=== PATIENT | female | born 1960 | race Caucasian/White ===

== ENCOUNTER 2023-08-01 09:21 | Outpatient (AMB) | payer MEDICARE, MEDICAID, SELFPAY ==
--- NOTE | 2023-08-01 09:48 | MHC.OFFVIS ---
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 The patient describes her pain as sharp and severe in nature, 10/10. Her pain has gotten worse over the last 3 years in spite of continued non operative treatments. She has done physical therapy which aggravated her pain. She has also had cortisone injections as well as viscosupplementation injections which gave her minimal relief. She has tried Tylenol which gives only mild relief. The patient has difficulty walking even short distances because of her pain. At this point her right knee pain is interfering with her activities of daily living and her ability to sleep well through the night. Allergies No Known Allergies Allergy (Verified 08/01/23 09:52) Medication List - Last Reconciled 08/01/23 by Anup Jordan MD albuterol sulfate 90 mcg/actuation (Ventolin HFA) inhalation apixaban (Eliquis) 5 mg PO BID atorvastatin 80 mg PO DAILY buspirone 15 mg PO BID carvedilol 3.125 mg PO BID clonazepam mg PO enoxaparin mg subcut escitalopram oxalate 20 mg PO DAILY famotidine 20 mg PO BID fluticasone propion-salmeterol 250-50 mcg/dose (Wixela Inhub) 1 ea inhalation BID hydroxyzine pamoate 25 mg PO TID linaclotide (Linzess) 145 mcg PO DAILY mirabegron ER (Myrbetriq) 50 mg PO DAILY omeprazole 20 mg PO DAILY oxcarbazepine 600 mg PO BID tirzepatide (Mounjaro) mg subcut [facility] Surgical History History of bladder suspension procedure Hx of tonsillectomy H/O: hysterectomy History of ankle surgery Physical Exam Vital Signs: BMI result Body Mass Index 43.8 Const Other: Well-nourished well-developed very friendly female awake alert and oriented x3 in no acute distress Extrem Other: Bilateral lower extremity examination shows good capillary refill, no skin lesions noted, normal sensation light touch Right knee examination shows a minimal effusion, palpable crepitus with range of motion, pain with range of motion, range of motion from -3 degrees to 115 degrees, no instability Results Reviewed Results Reviewed: X-rays of the patient's right knee show end-stage degenerative joint disease with grade 4 [id number] arthritis in the medial compartment, subchondral sclerosis, osteophyte formation, no acute bony abnormalities Assessment & Plan Assessment & Plan (1) Arthritis of right knee: Code(s): M17.11 - Unilateral primary osteoarthritis, right knee Category: Medical Plan Ms. Dean presents with progressively worsening right knee pain due to end-stage degenerative joint disease. I had a lengthy discussion with the patient regarding the treatment options. At this point she has failed continued non operative treatments. The risks and benefits of right total knee replacement surgery were discussed at length with the patient. The patient is interested in proceeding with surgery later this year. She will contact my office to pick a surgery date. I will see her back prior to the surgery to answer any final questions that she might have. Feel free to call me at any time should questions regarding her orthopedic management arise. I spent 21 minutes in reviewing the patient's records and imaging studies, seeing the patient and documenting in the medical record. Orders: Orders XR knee RT 3V Today M25.561 - Pain in right knee Coding Level of Care Code Est Pt Level 3 (40093) Diagnoses Arthritis of right knee M17.11
[2023-08-01 09:49] VITALS: BMI 43.8
== END 2023-08-01 10:12 | disposition home or self-care (01) ==
PROVIDERS: PCP Internal Medicine; Visit Provider Orthopaedic Surgery
DX: M17.11 Unilateral primary osteoarthritis, right knee (principal)
CPT/HCPCS: 99213

== ENCOUNTER 2023-08-01 10:30 | Outpatient (REF) | payer MEDICARE, MEDICAID, SELFPAY ==
--- NOTE | ~2023-08-01 | XR_ITS ---
EXAMINATION: XR KNEE, RIGHT CLINICAL INFORMATION: Pain in right knee. COMPARISON: MRI of left knee of July 23, 2020. TECHNIQUE: Three views of the right knee. FINDINGS: Marked narrowing of the medial compartment with subchondral sclerosis. Small medial marginal posterior patellar osteophytes. Trace joint effusion. XR/XR knee RT 3V IMPRESSION: Marked degenerative changes medial compartment.
== END 2023-08-01 10:31 | disposition home or self-care (01) ==
LOC: HO.HOSX 10:30
PROVIDERS: Visit Provider Orthopaedic Surgery
DX: M17.11 Unilateral primary osteoarthritis, right knee (principal)
CPT/HCPCS: 73562; 99212

== ENCOUNTER → 2023-09-28 09:10 | Outpatient (BNVA) | payer MEDICARE, MEDICAID, SELFPAY | PROVIDERS: PCP Internal Medicine | DX: Z01.818 Encounter for other preprocedural examination (principal) ==

== ENCOUNTER 2023-10-26 09:53 | Outpatient (AMB) | payer MEDICARE, MEDICAID, SELFPAY ==
--- NOTE | 2023-10-26 09:59 | MHC.OFFVIS ---
Intake Visit Reasons: Pre-Op: R TKA tamia/ 10/30/23 Intake Note: Esperanza is a 62 year old female who presents with complaints of progressively worsening right knee pain. The patient describes her pain as sharp and severe in nature, 11/22. Her pain has gotten worse over the last 3 years in spite of continued non operative treatments. She has done physical therapy which aggravated her pain. She has also had cortisone injections as well as viscosupplementation injections which gave her minimal relief. She has tried Tylenol which gives only mild relief. The patient has difficulty walking even short distances because of her pain. At this point her right knee pain is interfering with her activities of daily living and her ability to sleep well through the night. Allergies No Known Allergies Allergy (Verified 10/26/23 10:00) Medication List - Last Reconciled 10/26/23 by Anup Jordan MD albuterol sulfate 90 mcg/actuation (Ventolin HFA) 1 inh inhalation Q4H PRN apixaban (Eliquis) 5 mg PO BID atorvastatin 80 mg PO BEDTIME buspirone 15 mg PO BID carvedilol 6.25 mg PO BID carvedilol 3.125 mg PO BID clonazepam 1 mg PO BID escitalopram oxalate 20 mg PO QAM famotidine 20 mg PO BEDTIME fluticasone propion-salmeterol 250-50 mcg/dose (Wixela Inhub) 1 ea inhalation BID hydroxyzine pamoate 25 mg PO TID PRN levothyroxine 25 mcg PO QAM linaclotide (Linzess) 145 mcg PO QAM mirabegron ER (Myrbetriq) 50 mg PO QAM omeprazole 20 mg PO QAM oxcarbazepine 600 mg PO BID tirzepatide (Mounjaro) 10 mg subcut QWEEK walker Folding front wheeled walker [facility] Medical History Fatty liver Asthma Hypothyroid DVT (deep venous thrombosis) Fibromyalgia HTN (hypertension) Chronic renal insufficiency Type 2 diabetes mellitus Bipolar disorder Depression Morbid obesity Chronic pulmonary embolism Sleep apnea GERD (gastroesophageal reflux disease) Elevated cholesterol Surgical History History of esophagogastroduodenoscopy (EGD) H/O colonoscopy Hx of inguinal hernia repair Hx of sinus surgery Hx of shoulder surgery Hx of umbilical hernia repair Hx of arthroscopy of right knee History of bladder suspension procedure Hx of tonsillectomy H/O: hysterectomy History of ankle surgery Social History Household Members Other:: takes care of parents Are you a primary dog daycare provider to a significant other at home: No Do you presently have visiting nurse or other home services: No Patient Tobacco Use Status: Former Tobacco user Tobacco use type: Cigarette Years Smoked: 30 Physical Exam Const Other: Well-nourished well-developed very friendly female awake alert and oriented x3 in no acute distress Extrem Other: Bilateral lower extremity examination shows good capillary refill, no skin lesions noted, normal sensation light touch Right knee examination shows a minimal effusion, palpable crepitus with range of motion, pain with range of motion, range of motion from -3 degrees to 115 degrees, no instability Results Reviewed Results Reviewed: X-rays of the patient's right knee show end-stage degenerative joint disease with grade 4 [id number] arthritis, subchondral sclerosis, no acute bony abnormalities Assessment & Plan Assessment & Plan (1) Arthritis of right knee: Code(s): M17.11 - Unilateral primary osteoarthritis, right knee Category: Medical Plan Ms. Dean presents with right knee pain due to end-stage degenerative joint disease. I had a lengthy discussion with the patient regarding the treatment options. At this point she has failed continued non operative treatments. The risks and benefits of right total knee replacement surgery were discussed at length with the patient. The patient wishes to proceed with surgery. patient services manager will be consulted following her surgery for home physical therapy and nursing. The patient will follow-up as instructed. Feel free to call me at any time should questions regarding her orthopedic management arise. I spent 22 minutes in reviewing the patient's records and imaging studies, seeing the patient and documenting in the medical record. Coding Level of Care Code Est Pt Level 3 (47181) Complex EM visit Add On G2211 Diagnoses Arthritis of right knee M17.11
== END 2023-10-26 10:37 | disposition home or self-care (01) ==
PROVIDERS: PCP Internal Medicine; Visit Provider Orthopaedic Surgery
DX: M17.11 Unilateral primary osteoarthritis, right knee (principal)
CPT/HCPCS: 99024

== ENCOUNTER → 2023-10-26 09:53 | Outpatient (BNVA) | payer MEDICARE, MEDICAID, SELFPAY | PROVIDERS: PCP Internal Medicine; Visit Provider Orthopaedic Surgery | DX: Z01.818 Encounter for other preprocedural examination (principal); M17.11 Unilateral primary osteoarthritis, right knee | CPT/HCPCS: 99212 ==

== ENCOUNTER 2023-10-30 07:14 | Inpatient (IN) | payer MEDICARE, MEDICAID, SELFPAY ==
[2023-10-20 10:22] VITALS: BP 123/58; PULSE 71; RESP 20; O2SAT 97; BMI 43.4
--- NOTE | 2023-10-20 10:39 | P.CONAN_ITS ---
Documented by User: Blanca Lemus NP 10/26/23 14:49 HPI - Anesthesia Eval Consult details Narrative: 62yo F for Right Knee Replacement Total, 10/30/23 Medically cleared by [facility] Pulmo optimized No recent illness No CP/SOB within limits of knee pain DM: Insullin pump instructed to remove DOS by endocrine SHAWN: CPAP QHS DVT/PE: Eliquis, lovenox bridge GERD: ppi controls Asthma: stable on wixela, albuterol ~ QOD Anesthesia Pre-Procedure Meds Is the patient on any of the following meds?: GLP1/DPP4 PMFSH Active Problems Active Problems: All Active Problems Arthritis of right knee (Acute) Right knee pain (Acute) Past Medical History Medical History Fatty liver Asthma Hypothyroid DVT (deep venous thrombosis) Fibromyalgia HTN (hypertension) Chronic renal insufficiency Type 2 diabetes mellitus Bipolar disorder Depression Morbid obesity Chronic pulmonary embolism Sleep apnea GERD (gastroesophageal reflux disease) Elevated cholesterol Family History Family history of problems with anesthesia: No (Aunt is difficult intubation) Surgical History Surgical History History of esophagogastroduodenoscopy (EGD) H/O colonoscopy Hx of inguinal hernia repair Hx of sinus surgery Hx of shoulder surgery Hx of umbilical hernia repair Hx of arthroscopy of right knee History of bladder suspension procedure Hx of tonsillectomy H/O: hysterectomy History of ankle surgery History of Problems with Anesthesia: No Social History Social History Household Members Other:: takes care of parents Are you a primary field care coordinator to a significant other at home: No Do you presently have visiting nurse or other home services: No Patient Tobacco Use Status: Former Tobacco user Tobacco use type: Cigarette Years Smoked: 30 Use of substances other than those prescribed or required for medical reasons: No Have you been hit, kicked, punched, or otherwise hurt by someone within the past year? If so, by whom?: No Are you DNR?: No Advance Directives: No (daughter is primary contact) Advance Directives Information Provided: Yes (as above noted) Advance Directives on File: No Recently lost weight without trying: No Eating poorly because of decreased appetite: No Nutrition Risks: No Nutritional Risk Poor oral hygiene: No (wisdom teeth were extrcted) Meds Allergies Allergy/AdvReac Type Severity Reaction Status Date / Time No Known Allergies Allergy Verified 10/30/23 07:32 Home Medications ?Medication ?Instructions ?Recorded ?Confirmed ?Last Taken ?Type albuterol sulfate 90 mcg/actuation 1 inh inhalation Q4H PRN Shortness 08/01/23 10/30/23 Unknown History aerosol inhaler (Ventolin HFA) Of Breath Or Wheezing apixaban 5 mg tablet (Eliquis) 5 mg PO BID 08/01/23 10/30/23 10/25/23 History atorvastatin 80 mg tablet 80 mg PO BEDTIME 08/01/23 10/30/23 10/29/23 History buspirone 15 mg tablet 15 mg PO BID 08/01/23 10/30/23 10/29/23 History carvedilol 3.125 mg tablet 3.125 mg PO BID 08/01/23 10/30/23 10/30/23 History clonazepam 1 mg tablet 1 mg PO BID 08/01/23 10/30/23 10/30/23 History escitalopram oxalate 20 mg tablet 20 mg PO QAM 08/01/23 10/30/23 10/29/23 History famotidine 20 mg tablet 20 mg PO BEDTIME 08/01/23 10/30/23 10/29/23 History hydroxyzine pamoate 25 mg capsule 25 mg PO TID PRN Anxiety 08/01/23 10/30/23 10/29/23 History linaclotide 145 mcg capsule 145 mcg PO QAM 08/01/23 10/30/23 10/29/23 History (Linzess) mirabegron 50 mg tablet,extended 50 mg PO QAM 08/01/23 10/30/23 10/29/23 History release 24 hr (Myrbetriq) omeprazole 20 mg capsule,delayed 20 mg PO QAM 08/01/23 10/30/23 10/30/23 History release oxcarbazepine 600 mg tablet 600 mg PO BID 08/01/23 10/30/23 10/29/23 History levothyroxine 25 mcg tablet 25 mcg PO QAM 10/19/23 10/30/23 10/30/23 History carvedilol 6.25 mg tablet 6.25 mg PO BID 10/20/23 10/30/23 10/30/23 History fluticasone 250 mcg-salmeterol 50 1 ea inhalation BID 10/20/23 10/30/23 10/30/23 History mcg/dose blistr powdr for inhalation (Darvin Inhub) tirzepatide 10 mg/0.5 mL 10 mg subcut QWEEK 10/20/23 10/30/23 10/17/23 History subcutaneous pen injector (Sarmadunlibertad) Exam Height,Weight and Vital Signs: Height 5 ft 4 in Weight 114.759 kg Last Vital Signs Pulse 71 10/20/23 10:22 Resp 20 10/20/23 10:22 BP 123/58 L 10/20/23 10:22 Pulse Ox 97 10/20/23 10:22 O2 Del Method Room Air 10/20/23 10:22 Pertinent Lab Results Pertinent Lab Results: Lab Results 10/20/23 10/20/23 10/20/23 Range/Units 10:35 11:30 11:32 WBC 8.4 (4.8-10.8) X10*3/uL RBC 3.91 L (4.20-5.50) X10*6/uL Hgb 11.3 L (12.0-16.0) g/dl Hct 35.5 L (37.0-47.0) % MCV 90.8 (80.0-98.0) fL MCH 28.9 (27.0-33.0) pg MCHC 31.8 (31.0-35.0) g/dl RDW 13.2 (11.0-16.0) % Plt Count 328 (160-400) X10*3/uL MPV 10.2 (9.4-12.3) fL Absolute Nucleated RBC 0.000 (0.0-0.012) X10*3/uL Nucleated RBC % (auto) 0.0 (0.0-0.2) /100WBC Sodium 141 (135-145) mmol/L Potassium 4.3 (3.3-5.1) mmol/L Chloride 110 H (96-108) mmol/L Carbon Dioxide 23 (22-29) mmol/L Anion Gap 12 (12-20) BUN 32 H (9-16) mg/dL Creatinine 1.91 H (0.5-1.4) mg/dL Estim Creat Clear Calc 38.4 Estimated GFR 27 Random Glucose 34 L* (60-115) mg/dL Calcium 9.7 (8.4-10.2) mg/dL Nasal Screen MRSA (PCR) NEGATIVE (Negative) Nasal S. aureus Screen NEGATIVE (Negative) Nasal MRSA/S.aureus Interp SEE NOTE Blood Type O Negative Antibody Screen NEGATIVE Narrative Narrative: EKG 07/2023 Ventricular Rate: 66 BPM Atrial Rate: 66 BPM P-R Interval: 178 ms QRS Duration: 92 ms Q-T Interval: 410 ms QTC Calculation(Bazett): 429 ms P Avon: 20 degrees R [place]on: -2 degrees T [place]: 25 degrees Normal sinus rhythm Normal ECG When compared with ECG of 04-FEB-2023 17:51, No significant change was found Confirmed by LISANDRA QUAN ([id number]) on 08/01/2023 8:43:37 AM Airway Mallampati Class: II TM Dist: >3cm Neck ROM: Full Loose/Missing/Broken Teeth: No Heart: RRR Lungs: CTAB Assessment and Plan Assessment Anesthesia Assessment: Anesthesia Plan Discussed and PAT Visit Final Anesthetic Review Family History of Problems with Anesthesia: No (Aunt is difficult intubation) History of Problems with Anesthesia: No Documented by User: Sheree Boggs MD 10/30/23 08:12 [facility] Past Medical History Medical History Fatty liver Asthma Hypothyroid DVT (deep venous thrombosis) Fibromyalgia HTN (hypertension) Chronic renal insufficiency Type 2 diabetes mellitus Bipolar disorder Depression Morbid obesity Chronic pulmonary embolism Sleep apnea GERD (gastroesophageal reflux disease) Elevated cholesterol Surgical History Surgical History History of esophagogastroduodenoscopy (EGD) H/O colonoscopy Hx of inguinal hernia repair Hx of sinus surgery Hx of shoulder surgery Hx of umbilical hernia repair Hx of arthroscopy of right knee History of bladder suspension procedure Hx of tonsillectomy H/O: hysterectomy History of ankle surgery Social History Social History Household Members Other:: takes care of parents Are you a primary field care coordinator to a significant other at home: No Do you presently have visiting nurse or other home services: No Patient Tobacco Use Status: Former Tobacco user Tobacco use type: Cigarette Years Smoked: 30 Use of substances other than those prescribed or required for medical reasons: No Have you been hit, kicked, punched, or otherwise hurt by someone within the past year? If so, by whom?: No Are you DNR?: No Advance Directives: No (daughter is primary contact) Advance Directives Information Provided: Yes (as above noted) Advance Directives on File: No Recently lost weight without trying: No Eating poorly because of decreased appetite: No Nutrition Risks: No Nutritional Risk Poor oral hygiene: No (wisdom teeth were extrcted) Meds Allergies Allergy/AdvReac Type Severity Reaction Status Date / Time No Known Allergies Allergy Verified 10/30/23 07:32 Home Medications ?Medication ?Instructions ?Recorded ?Confirmed ?Last Taken ?Type albuterol sulfate 90 mcg/actuation 1 inh inhalation Q4H PRN Shortness 08/01/23 10/30/23 Unknown History aerosol inhaler (Ventolin HFA) Of Breath Or Wheezing apixaban 5 mg tablet (Eliquis) 5 mg PO BID 08/01/23 10/30/23 10/25/23 History atorvastatin 80 mg tablet 80 mg PO BEDTIME 08/01/23 10/30/23 10/29/23 History buspirone 15 mg tablet 15 mg PO BID 08/01/23 10/30/23 10/29/23 History carvedilol 3.125 mg tablet 3.125 mg PO BID 08/01/23 10/30/23 10/30/23 History clonazepam 1 mg tablet 1 mg PO BID 08/01/23 10/30/23 10/30/23 History escitalopram oxalate 20 mg tablet 20 mg PO QAM 08/01/23 10/30/23 10/29/23 History famotidine 20 mg tablet 20 mg PO BEDTIME 08/01/23 10/30/23 10/29/23 History hydroxyzine pamoate 25 mg capsule 25 mg PO TID PRN Anxiety 08/01/23 10/30/23 10/29/23 History linaclotide 145 mcg capsule 145 mcg PO QAM 08/01/23 10/30/23 10/29/23 History (Linzess) mirabegron 50 mg tablet,extended 50 mg PO QAM 08/01/23 10/30/23 10/29/23 History release 24 hr (Myrbetriq) omeprazole 20 mg capsule,delayed 20 mg PO QAM 08/01/23 10/30/23 10/30/23 History release oxcarbazepine 600 mg tablet 600 mg PO BID 08/01/23 10/30/23 10/29/23 History levothyroxine 25 mcg tablet 25 mcg PO QAM 10/19/23 10/30/23 10/30/23 History carvedilol 6.25 mg tablet 6.25 mg PO BID 10/20/23 10/30/23 10/30/23 History fluticasone 250 mcg-salmeterol 50 1 ea inhalation BID 10/20/23 10/30/23 10/30/23 History mcg/dose blistr powdr for inhalation (Darvin Harrell) tirzepatide 10 mg/0.5 mL 10 mg subcut QWEEK 10/20/23 10/30/23 10/17/23 History subcutaneous pen injector (Иван) Assessment and Plan Final Anesthetic Review NPO: Yes ASA Class: III Final Preanesthetic Review: No Changes in Pt Med Stat, Meds/Allgs Chart Reviewed, Consent Obtained/Reviewed and Anes Risks/Benef Reviewed Patient Risk: Intermediate Procedure Risk: Intermediate Anesthetic Plan Anesthetic Plan: Spinal and Regional Block Disposition: Standard PACU
[2023-10-20 12:54] LABS: MRSA Nasal PCR NEGATIVE (Negative); SA Nasal PCR NEGATIVE (Negative)
[2023-10-20 13:44] LABS: Hematocrit 35.5 % (37.0-47.0); Hemoglobin 11.3 g/dl (12.0-16.0); Mean Corpuscular HGB Conc 31.8 g/dl (31.0-35.0); Mean Corpuscular Hemoglobin 28.9 pg (27.0-33.0); Mean Corpuscular Volume 90.8 fL (80.0-98.0); Mean Platelet Volume 10.2 fL (9.4-12.3); Platelet Count 328 X10*3/uL (160-400); Red Blood Count 3.91 X10*6/uL (4.20-5.50); Red Cell Distribution Width 13.2 % (11.0-16.0); White Blood Count 8.4 X10*3/uL (4.8-10.8)
[2023-10-20 14:38] LABS: Anion Gap 12 (12-20); Blood Urea Nitrogen 32 mg/dL (9-16); Calcium 9.7 mg/dL (8.4-10.2); Carbon Dioxide 23 mmol/L (22-29); Chloride 110 mmol/L (96-108); Creatinine Clr Calc Pharmacy 38.4; Estimated Glomerular Filt Rate 27; Glucose Random 34 mg/dL (60-115); Potassium 4.3 mmol/L (3.3-5.1); Sodium 141 mmol/L (135-145)
[2023-10-30] VITALS (15 sets, daily range): BP systolic 118–158; BP diastolic 48–74; PULSE 60–73; RESP 15–18; TEMP 36–36.6; O2SAT 92–98; BMI 44.6
--- OUTSIDE RECORDS SUMMARY | 2023-10-30 07:24 | XMS_ITS | Continuity of Care Document ---
Author Organization [facility] Address [address] [place] [phone]- Care Team Providers Care Air Intelligence Specialist Name Role Phone Ro Janak RODRIGUEZ Primary Care Physician [place] [facility] [place](s): 02/08/23 - 03/10/23 [facility] [address] [place] [phone]- Allergies, Adverse Reactions, Alerts No Known Allergies Medications atorvastatin 80 mg oral tablet 1 tablet = 80 mg, By Mouth, Daily at bedtime, 0 Refills, Maintenance Start Date: 02/13/12 Status: Ordered carvedilol 3.125 mg oral tablet 3.125 mg, 1, tablet, By Mouth, 2 times a day, to take with 6.25 mg dose, # 60 tablet, Refills 11, Tot. Refills 11, Maintenance, 02/17/23 8:28:00 EST, Route to Pharmacy Electronically, [facility]/pharmacy #[id number], Partial fill upon patient request if the prescr... Start Date: 02/17/23 Stop Date: 02/12/24 Status: Ordered carvedilol 6.25 mg oral tablet 1, tablet, By Mouth, 2 times a day, # 180 tablet, Refills 3, Tot. Refills 3, Maintenance, 12/27/22 13:18:00 EST, Route to Pharmacy Electronically, [facility]/pharmacy #[id number], 163, cm, 08/23/22 9:04:00 EDT, Height, 120.5, kg, 07/26/22 15:18:00 EDT, Dry Weight Start Date: 12/27/22 Status: Ordered Centrum Silver 1 tab, By Mouth, Daily, 0 Refills, Maintenance, 02/14/16 20:44:22 EST Start Date: 02/14/16 Status: Ordered clonazePAM 0.5 mg oral tablet 1 tablet = 0.5 mg, By Mouth, 2 times a day, 0 Refills, Maintenance, 05/13/19 15:05:00 EDT Start Date: 05/13/19 Status: Ordered Eliquis 5 mg oral tablet 1 tablet = 5 mg, By Mouth, 2 times a day, # 60 tablet, 5 Refills, Maintenance, 02/17/23 8:00:00 EST, Tablet, Partial fill upon patient request if the prescription is for a schedule II opioid drug. Start Date: 02/17/23 Status: Ordered escitalopram 20 mg oral tablet TAKE 1 TABLET BY MOUTH EVERY DAY Start Date: 05/11/22 Status: Ordered Evening [place] 4 gelcaps, By Mouth, Daily, 0 Refills, Maintenance, 05/14/20 10:03:00 EDT, Partial fill upon patient request if the prescription is for a schedule II opioid drug. Start Date: 05/14/20 Status: Ordered famotidine 20 mg oral tablet 20 mg, 1, tablet, By Mouth, Daily at bedtime, # 180 tablet, Refills 0, Maintenance, 10/06/19 0:08:00 EDT Start Date: 10/06/19 Status: Ordered ferrous sulfate 325 mg oral tablet 1 tablet = 325 mg, By Mouth, Daily, # 90 tablet, 0 Refills, Maintenance, 01/11/22 12:13:00 EST, Tablet, Partial fill upon patient request if the prescription is for a schedule II opioid drug. Start Date: 01/11/22 Status: Ordered furosemide 40 mg oral tablet 80 mg, 2, tablet, TAKE 1 TABLET BY MOUTH EVERY DAY Start Date: 05/11/20 Status: Ordered Humalog 100 u/ml subcutaneous injection Subcutaneous Infusion, 0 Refills, Maintenance, 10/06/19 0:09:00 EDT Start Date: 10/06/19 Status: Ordered levothyroxine 0.025 mg oral tablet 1 tablet = 25 mcg, By Mouth, Daily, 0 Refills, Maintenance, 05/13/19 15:04:00 EDT Start Date: 05/13/19 Status: Ordered Lexapro 20 mg oral tablet 1 tablet = 20 mg, By Mouth, Daily, # 30 tablet, 0 Refills, Maintenance, 06/19/19 3:53:00 EDT, Tablet Start Date: 06/19/19 Status: Ordered Mounjaro 5 mg/0.5 mL subcutaneous solution = 5 mg, Subcutaneous Injection, Every week, rotate injection sites, # 4 each, 0 Refills, Maintenance, 03/09/23 15:49:00 EST, Solution, [facility]/pharmacy #[id number], 164, cm, 02/17/23 8:01:00 EST, Height, 121, kg, 02/04/23 17:57:00 EST, Dry Weight Start Date: 03/09/23 Status: Ordered Omeprazole = 20 mg, By Mouth, Daily, 0 Refills, Maintenance, 10/07/20 17:01:00 EDT, Partial fill upon patient request if the prescription is for a schedule II opioid drug. Start Date: 10/07/20 Status: Ordered OXcarbazepine 300 mg oral tablet 600 mg, 2, tablet, By Mouth, 2 times a day, # 120 tablet, Refills 0, Maintenance, 06/19/19 3:54:00 EDT Start Date: 06/19/19 Status: Ordered predniSONE 20 mg oral tablet 2 tablet = 40 mg, By Mouth, Daily, # 6 tablet, 0 Refills, Maintenance, 07/26/22 19:09:00 EDT, [facility]/pharmacy #[id number], Partial fill upon patient request if the prescription is for a schedule II opioid drug., 163, cm, 07/26/22 15:18:00 EDT, Height, 120.5, k... Start Date: 07/26/22 Stop Date: 07/29/22 Status: Ordered Restasis 0.05% ophthalmic emulsion 0 Refills, Maintenance, 05/11/22 13:26:00 EDT, Partial fill upon patient request if the prescription is for a schedule II opioid drug. Start Date: 05/11/22 Status: Ordered traZODone 100 mg oral tablet 100 mg, 1, tablet, By Mouth, Daily at bedtime, PRN, # 60 tablet, Refills 0, Maintenance, Insomnia, 06/19/19 3:53:00 EDT Start Date: 06/19/19 Status: Ordered Vitamin D3 1000 intl units oral tablet 1 tablet = 1,000 International_Units, By Mouth, Daily, 0 Refills, Maintenance, 02/15/16 8:04:29 Start Date: 02/15/16 Status: Ordered warfarin 10 mg oral tablet See Instructions, please take 15 mg and 20mg on alternate days, 0 Refills, Maintenance, 10/06/19 12:06:00 EDT, Tablet Start Date: 10/06/19 Status: Ordered Zofran 4 mg oral tablet 1 tablet = 4 mg, By Mouth, Every 8 hours, PRN as needed for nausea/vomiting, # 21 tablet, 0 Refills, Maintenance, 10/14/20 15:35:00 EDT, Tablet, [facility], Partial fill upon patient request if the prescription is for a schedule II opioi... 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 LVH (left ventricular hypertrophy) Confirmed Active Severe obesity Confirmed Active Type 2 diabetes mellitus Confirmed Active Social History Social History Type Response Smoking Status Former smoker, quit more than 30 days ago entered on: 02/23/21 Sex Implantable Device List Procedure Provider Procedure Date Device Type Site Repair Hernia Ventral Open Anjel Simons MD, I 12/27/17 Unknown Abdomen Device Identifier Serial Number Lot or Batch Number Manufacturing Date Expiration Date Distinct Identification Code MRI Safety Implantable Status Assigning Authority Unknown Unknown Unknown Unknown 12/10/21 Unknown Unknown Active Un known Patient Care team information Care Team Personnel Name: Deyanira Holden Position: [facility] Onco RN Member Role: Primary Care Nurse Name: Linda Harris RN Position: [facility] SN RN Member Role: Primary Care Nurse Name: Janak Greer MD Position: [facility] Physician - Primary Care Member Role: PCP Address: Address: [address] [place] [id number] [place] [address] Name: Tammy Montelongo RN Position: [facility] SN RN Member Role: Primary Care Nurse Care Team Related Persons Name: DANIELA GRAY Address: home [address] [place] [address] Name: JASMINE VILLAR Address: home [address] [place] [address]
--- OUTSIDE RECORDS SUMMARY | 2023-10-30 07:24 | XMS_ITS | Continuity of Care Document ---
Author Organization [facility] Address [address] [place] [phone]- Care Team Providers Care Plug Machine Operator Name Role Phone Ro Janak RODRIGUEZ Primary Care Physician Encounter [facility] [place] Date(s): 06/02/21 - 07/02/21 [facility] [address] [place] [address]- Allergies, Adverse Reactions, Alerts No Known Allergies Medications atorvastatin 80 mg oral tablet 1 tablet = 80 mg, By Mouth, Daily at bedtime, 0 Refills, Maintenance Start Date: 02/13/12 Status: Ordered carvedilol 6.25 mg oral tablet 6.25 mg, 1, tablet, By Mouth, 2 times a day, # 60 tablet, Refills 5, Tot. Refills 5, Maintenance, 06/24/21 15:16:00 EDT, Route to Pharmacy Electronically, [facility]/pharmacy #[id number], Partial fill upon patient request if the prescription is for a schedule II o... Start Date: 06/24/21 Status: Ordered Centrum Silver 1 tab, By Mouth, Daily, 0 Refills, Maintenance, 02/14/16 20:44:22 EST Start Date: 02/14/16 Status: Ordered clonazePAM 0.5 mg oral tablet 1 tablet = 0.5 mg, By Mouth, 3 times a day, 0 Refills, Maintenance, 05/13/19 15:05:00 EDT Start Date: 05/13/19 Status: Ordered Evening [place] 4 gelcaps, By Mouth, Daily, 0 Refills, Maintenance, 05/14/20 10:03:00 EDT, Partial fill upon patient request if the prescription is for a schedule II opioid drug. Start Date: 05/14/20 Status: Ordered famotidine 20 mg oral tablet 20 mg, 1, tablet, By Mouth, Daily at bedtime, # 180 tablet, Refills 0, Maintenance, 10/06/19 0:08:00 EDT Start Date: 10/06/19 Status: Ordered furosemide 40 mg oral tablet TAKE 1 TABLET BY [...] EDT, Tablet Start Date: 06/19/19 Status: Ordered Omeprazole = 20 mg, By [...] 3:54:00 EDT Start Date: 06/19/19 Status: Ordered traZODone 100 mg oral tablet [...] 0 Refills, Maintenance, 10/14/20 15:35:00 EDT, Tablet, [facility], Partial fill upon patient request if the prescription is for a schedule II opioi... Start Date: 10/14/20 Stop Date: 10/21/20 Status: Ordered Problem List Condition Effective Dates Status Health Status Inform ant CKD (chronic kidney disease)(Confirmed) Active Instability of left ankle joint(Confirmed) Active Severe obesity(Confirmed) Active Social History Social History Type Response Smoking Status Former smoker, quit more than 30 days ago entered on: 02/23/21 Sex Medical Equipment Implanted Date:12/27/17Target Site:Abdomen Description Quantity MRI Company Model MESH BARD 6.6X6.6IN 15X15 CM - BARD ([id number]) 1 Bard Unknown GARO:No Information Assigning Authority: FDA
--- OUTSIDE RECORDS SUMMARY | 2023-10-30 07:24 | XMS_ITS | Continuity of Care Document ---
Author Organization [facility] Address [address] [place] [phone]- Care Team Providers Care Leave Manager Name Role Phone Janak Greer MD [id number]23[facility] [address] [place] [id number] Discharge Disposition: A-D/C Home Attending Physician: Ama Montes MD Admitting Physician: Ama Montes MD Referring Physician: Janak Greer MD Allergies, Adverse Reactions, Alerts Substance Reaction Severity Status NKA Active Medications atorvastatin 80 mg oral tablet 1 tablet = 80 mg, By Mouth, Daily at bedtime, 0 Refills, Maintenance Start Date: 02/13/12 Status: Ordered Centrum Silver By Mouth, Daily, 0 Refills, Maintenance, 02/14/16 20:44:22 Start Date: 02/14/16 Status: Ordered clonazePAM 0.5 mg oral tablet 1 tablet = 0.5 mg, By Mouth, 3 times a day, 0 Refills, Maintenance, 05/13/19 15:05:00 EDT Start Date: 05/13/19 Status: Ordered famotidine 20 mg oral tablet 20 mg, 1, tablet, By Mouth, 2 times a day, # 180 tablet, Refills 0, Maintenance, 10/06/19 0:08:00 EDT Start Date: 10/06/19 Status: Ordered Humalog 100 u/ml subcutaneous injection Subcutaneous Infusion, 0 Refills, Maintenance, 10/06/19 0:09:00 EDT Start Date: 10/06/19 Status: Ordered Lantus Inj 0.24 mL = 24 units, Subcutaneous Injection, Daily in AM, 0 Refills, Maintenance, 10/06/19 12:12:00 EDT, Injection Start Date: 10/06/19 Status: Ordered Lantus Inj 0.4 mL = 40 units, Subcutaneous Injection, Daily at bedtime, 0 Refills, Maintenance, 10/06/19 12:12:00 EDT, Injection Start Date: 10/06/19 Status: Ordered levothyroxine 0.025 mg oral tablet 1 tablet = 25 mcg, By Mouth, Daily, 0 Refills, Maintenance, 05/13/19 15:04:00 EDT Start Date: 05/13/19 Status: Ordered Lexapro 20 mg oral tablet 1 tablet = 20 mg, By Mouth, Daily, # 30 tablet, 0 Refills, Maintenance, 06/19/19 3:53:00 EDT, Tablet Start Date: 06/19/19 Status: Ordered Misc Rx Refills 0, Maintenance, 06/26/19 10:22:00 EDT, Supply Start Date: 06/26/19 Status: Ordered OXcarbazepine 300 mg oral tablet 600 mg, 2, tablet, By Mouth, 2 times a day, # 120 tablet, Refills 0, Maintenance, 06/19/19 3:54:00 EDT Start Date: 06/19/19 Status: Ordered traZODone 100 mg oral tablet 100 mg, 1, tablet, By Mouth, Daily at bedtime, # 60 tablet, Refills 0, Maintenance, 06/19/19 3:53:00 EDT Start Date: 06/19/19 Status: Ordered Vitamin D3 1000 intl units oral tablet 1 tablet = 1,000 International_Units, By Mouth, Daily, 0 Refills, Maintenance, 02/15/16 8:04:29 Start Date: 02/15/16 Status: Ordered warfarin 10 mg oral tablet See Instructions, please take 15 mg today and tomorrow. Please check INR on Monday10/08/19, 0 Refills, Maintenance, 10/06/19 12:06:00 EDT, Tablet Start Date: 10/06/19 Status: Ordered Problem List Condition Effective Dates Status Health Status Inform ant CKD (chronic kidney disease)(Confirmed) Active Social History Social History Type Response Smoking Status Current every day sm oker; Type: Cigarettes; Tobacco use times per day: smokes 5 cigaretets per day; Number of years: 20; Total pack years: 20; entered on: 02/15/16 Sex Medical Equipment Implanted Date:12/27/17Target Site:Abdomen Description Quantity MRI Company Model MESH BARD 6.6X6.6IN 15X15 CM - BARD ([id number]) 1 Bard Unknown GARO:No Information Assigning Authority: FDA
--- OUTSIDE RECORDS SUMMARY | 2023-10-30 07:24 | XMS_ITS | Continuity of Care Document ---
Author Organization [facility] Address [address] [place] [phone]- Care Team Providers Care Record Label Intern Name Role Phone Janak Greer MD Primary Care Physician [phone] Encounter [facility] [place] AC[facility] R [id number] Date(s): 03/31/23 - 03/31/[address] [address]- Encounter Diagnosis Cough(Final) - 03/31/23 Discharge Disposition: A-D/C Home Attending Physician: Saida Aquino MD Admitting Physician: Saida Aquino MD Referring Physician: Not on Staff, Referring MD Allergies, Adverse Reactions, Alerts No Known Allergies Medications amoxicillin 875 mg oral tablet 1 tablet = 875 mg, By Mouth, 2 times a day, for 7 days, # 14 tablet, 0 Refills, Acute 04/07/23 22:05:00 EST, 03/31/23 22:05:00 EST, Tablet, [id number], Partial fill upon patient request if the prescription is for a schedule II opioid drug., 16... Start Date: 03/31/23 Stop Date: 04/07/23 Status: Ordered atorvastatin 80 mg oral tablet 1 tablet = 80 mg, By Mouth, Daily at bedtime, 0 Refills, Maintenance Start Date: 02/13/12 Status: Ordered benzonatate 100 mg oral capsule 1 capsule = 100 mg, By Mouth, 3 times a day, for 3 days, # 9 capsule, 1 Refills, Acute 04/06/23 22:06:00 EST, 03/31/23 22:06:00 EST, Capsule, [id number], Partial fill upon patient request if the prescription is for a schedule II opioid drug.,... Start Date: 03/31/23 Stop Date: 04/06/23 Status: Ordered carvedilol 3.125 mg oral tablet 3.125 mg, 1, tablet, By Mouth, 2 times a day, to take with 6.25 mg dose, # 60 tablet, Refills 11, Tot. Refills 11, Maintenance, 02/17/23 8:28:00 EST, [id number], Partial fill upon patient request if the prescr... Start Date: 02/17/23 Stop Date: 02/12/24 Status: Ordered carvedilol 6.25 mg oral tablet 1, tablet, By Mouth, 2 times a day, # 180 tablet, Refills 3, Tot. Refills 3, Maintenance, 12/27/22 13:18:00 EST, [id number], 163, cm, 08/23/22 9:04:00 EDT, Height, [...] DAY Start Date: 05/11/22 Status: Ordered Evening [place] 4 gelcaps, By Mouth, Daily, 0 Refills, [...] 0 Refills, Maintenance, 03/09/23 15:49:00 EST, Solution, [facility]/pharmacy #[id number], 164, cm, 02/17/23 8:01:00 EST, [...] tablet, 0 Refills, Maintenance, 07/26/22 19:09:00 EDT, [facility]/pharmacy #[id number], Partial fill upon patient request [...] 0 Refills, Maintenance, 10/14/20 15:35:00 EDT, Tablet, [facility], Partial fill upon patient [...] Active Type 2 diabetes mellitus Confirmed Active Results Radiology Reports * Exam Date Time Procedure Performing Provider Status 03/31/23 7:48 PM Chest 2 Views Frontal and Lat Rupert Diop; Abdias (Verified) Notes: (Chest 2 Views Frontal and Lat) Reason For Exam: Shortness of Breath, Fever;Other: RESULT: Chest 2 Views Frontal and Lat PA and lateral chest dated March 31, 2023. Comparison films are from February 04, 2023. HISTORY: Fever. Shortness of breath. FINDINGS: The cardiac silhouette is within normal limits for size. Hilar and mediastinal structuresare unremarkable. No airspace consolidation or pleural effusion is seen. IMPRESSION: No evidence of acute pulmonary disease. Examination 60593. Thank you for allowing me to participate in the care of this patient. WSN: [id number] Ordering Physician: Saida Aquino Dictated By: Aden Zamarripa MD Dictated Date/Time: 03/31/23 7:49 pm Reviewed By: Aden Zamarripa MD Signed By: Aden Zamarripa MD Signed Date/Time: 03/31/23 7:49 pm Transcribed By: LINDA Transcribed Date/Time: 03/31/23 7:49 pm Vital Signs Most recent to oldest [Reference Range]: 1 2 3 Oxygen Saturation [94-100 %] 98 % (03/31/23 5:35 PM) 97 % (03/31/23 3:11 PM) 97 % (03/31/23 2:55 PM) Pulse Rate [55-90 bpm] 75 bpm (03/31/23 5:35 PM) 74 bpm (03/31/23 3:11 PM) 83 bpm (03/31/23 2:55 PM) Blood Pressure [90-138/55-84 mm Hg] 136/119mm Hg (03/31/23 5:35 PM) 162/44mm Hg *H* (03/31/23 3:11 PM) Respiratory Rate [16-30 br/min] 18 br/min (03/31/23 5:35 PM) 16 br/min (03/31/23 3:11 PM) Temperature [96.8-100.4 DegF] 99.0 DegF (03/31/23 5:35 PM) 98.1 DegF (03/31/23 3:11 PM) Mode of Delivery (Oxygen) Room air (03/31/23 5:35 PM) Room air (03/31/23 3:11 PM) Room air (03/31/23 2:55 PM) Blood pressure sites Arm, right (03/31/23 5:35 PM) Arm, left (03/31/23 3:11 PM) Temperature Route Oral (03/31/23 5:35 PM) Oral (03/31/23 3:11 PM) Dry Weight 120.9 kg (03/31/23 7:36 PM) 120.9 kg (03/31/23 3:11 PM) Dry Weight Obtained Via Standing scale (03/31/23 3:11 PM) Social History Social History Type Response Smoking Status Former smoker, quit more than 30 days ago entered on: 02/23/21 Sex Implantable Device List Procedure Provider Procedure Date Device Type Site Repair Hernia Ventral Open Ronak RODRIGUEZ, Anjel Wilkins 12/27/17 Unknown Abdomen Device Identifier Serial Number Lot or Batch Number Manufacturing Date Expiration Date Distinct Identification Code MRI Safety Implantable Status Assigning Authority Unknown Unknown Unknown Unknown 12/10/21 Unknown Unknown Active Un known Patient Care team information Care Team Personnel Name: Deyanira Holden Position: [facility] Onco RN Member Role: Primary Care Nurse Name: Janak Greer MD Position: [facility] Physician - Primary Care Member Role: PCP Address: Address: [address] [place] [address] Name: Tammy Montelongo RN Position: [facility] SN RN Member Role: Primary Care Nurse Care Team Related Persons Name: DANIELA GRAY Address: home [address] [place] [address] Name: JASMINE VILLAR Address: home [address] [place] [phone]
--- OUTSIDE RECORDS SUMMARY | 2023-10-30 07:24 | XMS_ITS | Continuity of Care Document ---
Author Organization [facility] Address [address] [place] [address]- Care Team Providers Care Health Sciences Dean Name Role Phone Ro Janak RODRIGUEZ Primary Care Physician [place] [facility] [place] 12/14/22 - 01/13/23 [facility] [address] [place] [id number] Allergies, Adverse Reactions, Alerts No Known Allergies Medications atorvastatin 80 mg oral tablet 1 tablet = 80 mg, By Mouth, Daily at bedtime, 0 Refills, Maintenance Start Date: 02/13/12 Status: Ordered carvedilol 6.25 mg oral tablet 6.25 mg, 1, tablet, By Mouth, 2 times a day, # 60 tablet, Refills 5, Tot. Refills 5, Maintenance, 06/24/21 15:16:00 EDT, Route to Pharmacy Electronically, [facility]/pharmacy #[id number], Partial fill upon patient request if the prescription is for a schedule II o... Start Date: 06/24/21 Status: Ordered carvedilol 6.25 mg oral tablet 1, tablet, By Mouth, 2 times a day, # 180 tablet, Refills 3, Tot. Refills 3, Maintenance, 12/27/22 13:18:00 EST, Route to Pharmacy Electronically, [facility]/pharmacy #[id number], 163, cm, 08/23/22 9:04:00 EDT, Height, [...] 15:05:00 EDT Start Date: 05/13/19 Status: Ordered escitalopram 20 mg oral tablet TAKE 1 TABLET BY MOUTH EVERY DAY Start Date: 05/11/22 Status: Ordered Evening [place] 4 gelcaps, By Mouth, Daily, 0 Refills, [...] tablet, 0 Refills, Maintenance, 07/26/22 19:09:00 EDT, [facility]/pharmacy #[id number], Partial fill upon patient request if [...] 3:53:00 EDT Start Date: 06/19/19 Status: Ordered Victoza 18 mg/3 mL subcutaneous solution = 1.8 mg, Subcutaneous Injection, Daily, # 9 mL, 0 Refills, Maintenance, 05/11/22 13:27:00 EDT, Solution, Partial fill upon patient request if the prescription is for a schedule II opioid drug. Start Date: 05/11/22 Status: Ordered Vitamin D3 1000 intl units [...] 0 Refills, Maintenance, 10/14/20 15:35:00 EDT, Tablet, [facility], Partial fill upon patient [...] Care Team Personnel Name: Deyanira Holden Position: [facility] Onco RN Member Role: Primary Care Nurse Name: Linda Harris RN Position: [facility] SN RN Member Role: Primary Care Nurse Name: Janak Greer MD Position: [facility] Physician - Primary Care Member Role: PCP Address: Address: [address] [place] [address] Name: Tammy Montelongo RN Position: [facility] SN RN Member Role: Primary Care Nurse Care Team Related Persons Name: DANIELA GRAY Address: [address] [place] [address] Name: JASMINE VILLAR Address: home [address] [place] [id number]
--- OUTSIDE RECORDS SUMMARY | 2023-10-30 07:24 | XMS_ITS | Continuity of Care Document ---
Author Organization [facility] Address [address] [facility] [place] [address]- Care Team Providers Care Barge Captain Name Role Phone Ro Janak RODRIGUEZ Primary Care Physician Encounter 02/27/20 - 03/05/20 [facility] [address], [address] [place], [place] [address] Attending Physician: Mercedes Dykes Admitting Physician: Mercedes Dykes Referring Physician: Mercedes Dykes Allergies, Adverse Reactions, Alerts Substance Reaction Severity [...] MESH BARD 6.6X6.6IN 15X15 CM - BARD ([id number]) 1 Bard Unknown GARO:No Information Assigning Authority: FDA
--- OUTSIDE RECORDS SUMMARY | 2023-10-30 07:25 | XMS_ITS | Continuity of Care Document ---
Author Organization [facility] Address [address] [place] [address]- Care Team Providers Care Toy Painter Name Role Phone Janak Greer MD Primary Care Physician [phone] Encounter [facility] ACCT R [id number] Date(s): 07/28/22 - 08/04/22 [facility] [address] [place] [address]- Attending Physician: Marilu Coe MD Referring Physician: Janak Greer MD Allergies, Adverse Reactions, Alerts No Known Allergies Medications atorvastatin 80 mg oral tablet 1 tablet = 80 mg, By Mouth, Daily at bedtime, 0 Refills, Maintenance Start Date: 02/13/12 Status: Ordered carvedilol 6.25 mg oral tablet 6.25 mg, 1, tablet, By Mouth, 2 times a day, # 60 tablet, Refills 5, Tot. Refills 5, Maintenance, 06/24/21 15:16:00 EDT, Route to Pharmacy Electronically, [facility]/pharmacy #[id number], Partial fill upon patient request if the prescription is for a schedule II o... Start Date: 06/24/21 Status: Ordered carvedilol 6.25 mg oral tablet 1, tablet, By Mouth, 2 times a day, # 180 tablet, Refills 3, Maintenance, 12/19/21 8:35:00 EST, Route to Pharmacy Electronically, [facility] [id number], 162.56, cm, 06/16/21 8:16:00 EDT, Height, 116.8, kg,10/14/20 13:50:00 EDT, Dry Weight Start Date: 12/19/21 Status: Ordered Centrum Silver 1 tab, By [...] DAY Start Date: 05/11/22 Status: Ordered Evening [place] 4 gelcaps, By Mouth, Daily, 0 Refills, [...] tablet, 0 Refills, Maintenance, 07/26/22 19:09:00 EDT, [facility]/pharmacy #[id number], Partial fill upon patient request [...] 0 Refills, Maintenance, 10/14/20 15:35:00 EDT, Tablet, [facility], Partial fill upon patient request if the prescription is for a schedule II opioi... 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 LVH (left ventricular hypertrophy) Confirmed Active Severe obesity Confirmed Active Vital Signs Most recent to oldest [Reference Range]: 1 Height 163 cm (07/28/22 10:32 AM) Weight 121.9 kg (07/28/22 10:32 AM) Oxygen Saturation [94-100 %] 98 % (07/28/22 10:32 AM) Pulse Rate [55-90 bpm] 60 bpm (07/28/22 10:32 AM) Body Mass Index [18.5-24.99 kg/m2] 45.88 kg/m2 *>HHI* (07/28/22 10:32 AM) Blood Pressure [90-138/55-84 mm Hg] 127/ 53mm Hg (07/28/22 10:32 AM) Blood pressure sites Arm, right (07/28/22 10:32 AM) Social History Social History Type Response Smoking [...] Care Team Personnel Name: Deyanira Holden Position: [facility] Onco RN Member Role: Primary Care Nurse Name: Linda Harris RN Position: [facility] SN RN Member Role: Primary Care Nurse Name: Janak Greer MD Position: [facility] Physician - Primary Care Member Role: PCP Address: Address: [address] [place] [address] Name: Tammy Montelongo RN Position: [facility] SN RN Member Role: Primary Care Nurse Care Team Related Persons Name: ISAAC JADASOLANGEEFREM Address: home [address] [place] [address] Name: JASMINE VILLAR Address: home [address] [place] [address]
--- OUTSIDE RECORDS SUMMARY | 2023-10-30 07:25 | XMS_ITS | Continuity of Care Document ---
Author Organization [facility] ter Address [address] [place] [address]- Care Team Providers Care Business Functional Analyst Name Role Phone Janak Greer MD Primary Care Physician [phone] [place] [facility] Date(s): 09/03/19 - 10/13/[address] [address]- [facility] Attending Physician: Janak Greer MD Admitting Physician: Janak Greer MD Referring Physician: Janak Greer MD Allergies, Adverse Reactions, Alerts Substance Reaction Severity Status NKA Active Medications atorvastatin 80 mg oral tablet 1 tablet = 80 mg, By Mouth, Daily at bedtime, 0 Refills, Maintenance Start Date: 02/13/12 Status: Ordered Felix Low Dose 81 mg oral delayed release tablet 1 tablet = 81 mg, By Mouth, Daily, 0 Refills, Maintenance, 02/14/16 20:44:48 Start Date: 02/14/16 Status: Ordered Centrum Silver By Mouth, Daily, [...] EDT Start Date: 10/06/19 Status: Ordered furosemide 20 mg oral tablet 20 mg, 1, tablet, By Mouth, Daily, # 30 tablet, Refills 0, Maintenance, 10/06/19 0:09:00 EDT Start Date: 10/06/19 Status: Ordered Humalog 100 u/ml subcutaneous injection Subcutaneous Infusion, 0 Refills, Maintenance, 10/06/19 0:09:00 EDT Start Date: 10/06/19 Status: Ordered Insulin Glargine = 36 units, Subcutaneous Infusion, Daily at bedtime, 0 Refills, Maintenance, 06/19/19 3:48:00 EDT Start Date: 06/19/19 Status: Ordered Lantus Inj 0.24 mL = [...] 3:54:00 EDT Start Date: 06/19/19 Status: Ordered Restasis 1 drops, Eyes, Both, Every 12 hours, 0 Refills, Maintenance, 02/15/16 8:04:10 Start Date: 02/15/16 Status: Ordered traZODone 100 mg oral tablet [...] Model MESH BARD 6.6X6.6IN 15X15 CM - ([id number]) 1 Bard Unknown GARO:No Information Assigning Authority: FDA
--- OUTSIDE RECORDS SUMMARY | 2023-10-30 07:25 | XMS_ITS | Continuity of Care Document ---
Author Organization [facility] Address [address] [place] [address]- Care Team Providers Care Clinical Pharmacy Technician Name Role Phone Janak Greer MD Primary Care Physician En[place] [facility] [place] [id number] Date(s): 05/14/20 - 06/13/20 [facility] [address] [facility] [place] [address]- Attending Physician: AdmHerminio merrill Admitting Physician: Admtr, Ar8 Referring Physician: Admtr, Ar8 Allergies, Adverse Reactions, Alerts Substance Reaction Severity [...] EDT Start Date: 05/13/19 Status: Ordered Evening [place] 0 Refills, Maintenance, 05/14/20 10:03:00 EDT, Partial [...] EDT, Tablet Start Date: 06/19/19 Status: Ordered NovoLOG 100 units/mL injectable solution Subcutaneous Infusion, 3 times a day before meals, 0 Refills, Maintenance, 05/14/20 10:03:00 EDT, Partial fill upon patient request if the prescription is for a schedule II opioid drug. Start Date: 05/14/20 Status: Ordered OXcarbazepine 300 mg oral tablet 600 mg, 2, tablet, By Mouth, 2 times a day, # 120 tablet, Refills 0, Maintenance, 06/19/19 3:54:00 EDT Start Date: 06/19/19 Status: Ordered traZODone 100 mg oral tablet 100 mg, 1, tablet, By Mouth, Daily at bedtime, # 60 tablet, Refills 0, Maintenance, 06/19/19 3:53:00 EDT Start Date: 06/19/19 Status: Ordered Tresiba FlexTouch = 26 units, Subcutaneous Injection, Daily in AM, 0 Refills, Maintenance, 05/11/20 3:46:00 EDT, Partial fill upon patient request if the prescription is for a schedule II opioid drug. Start Date: 05/11/20 Status: Ordered Tresiba FlexTouch See Instructions, 42 units Subcutaneous Injection Daily at bedtime, 0 Refills, Maintenance, 05/11/20 3:48:00 EDT, Partial fill upon patient request if the prescription is for a schedule II opioid drug. Start Date: 05/11/20 Status: Ordered Vitamin D3 1000 intl units oral tablet 1 tablet = 1,000 International_Units, By Mouth, Daily, 0 Refills, Maintenance, 02/15/16 8:04:29 Start Date: 02/15/16 Status: Ordered warfarin 10 mg oral tablet See Instructions, please take 15 mg and 10 mg on alternate days, 0 Refills, Maintenance, 10/06/19 [...] MESH BARD 6.6X6.6IN 15X15 CM - BARD ([id number]) 1 Bard Unknown GARO:No Information Assigning Authority: FDA
--- OUTSIDE RECORDS SUMMARY | 2023-10-30 07:25 | XMS_ITS | Continuity of Care Document ---
Author Organization [facility] ter Address [address] [place] [address]- Care Team Providers Care Four Corner Former Machine Operator Name Role Phone Ro Janak RODRIGUEZ Primary Care Physician [place] [facility] [place] 08/29/19 - 08/29/[address] [address]- [facility] Encounter Diagnosis Chest pain(Final) - 08/29/19 Discharge Disposition: A-D/C Home Attending Physician: Chemo Frank MD Admitting Physician: Chemo Frank MD Referring Physician: Not on Staff, Referring MD Allergies, Adverse Reactions, Alerts Substance Reaction [...] 15:05:00 EDT Start Date: 05/13/19 Status: Ordered glipiZIDE 5 mg oral tablet, extended release 1 tablet = 5 mg, 0 Refills, Maintenance, 02/15/16 8:02:33 EST Start Date: 02/15/16 Status: Ordered Insulin Glargine = 36 units, Subcutaneous Infusion, Daily at bedtime, 0 Refills, Maintenance, 06/19/19 3:48:00 EDT Start Date: 06/19/19 Status: Ordered Lantus Inj = 20 units, Subcutaneous Infusion, Daily, 0 Refills, Maintenance, 05/13/19 15:05:00 EDT Start Date: 05/13/19 Status: Ordered levothyroxine 0.025 mg oral tablet [...] Status: Ordered OXcarbazepine 300 mg oral tablet 300 mg, 1, tablet, By Mouth, 2 times [...] 8:04:29 Start Date: 02/15/16 Status: Ordered warfarin 2.5 mg oral tablet 2 tablet = 5 mg, By Mouth, Daily, continue for life long to follow closely with PCP, # 60 tablet, 0Refills, Maintenance, 06/20/19 8:15:00 EDT, Tablet, [facility], 163, cm, 06/20/19 7:35:00 EDT, Height, 108.4, kg, 06/19/19 17:07:00 EDT,... Start Date: 06/20/19 Status: Ordered Problem List Condition Effective Dates Status Health Status Inform ant CKD (chronic kidney disease)(Confirmed) Active Vital Signs Most recent to oldest [Reference Range]: 1 2 3 Oxygen Saturation [94-100 %] 97 % (08/29/19 6:40 PM) 99 % (08/29/19 2:54 PM) 99 % (08/29/19 11:34 AM) Pulse Rate [55-90 bpm] 72 bpm (08/29/19 6:40 PM) 56 bpm (08/29/19 2:54 PM) 63 bpm (08/29/19 11:34 AM) Blood Pressure [90-138/55-84 mm Hg] 129/46mm Hg (08/29/19 6:40 PM) 130/65mm Hg (08/29/19 2:54 PM) 142/78mm Hg *H* (08/29/19 11:34 AM) Respiratory Rate [16-30 br/min] 16 br/min (08/29/19 6:40 PM) 16 br/min (08/29/19 2:54 PM) 18 br/min (08/29/19 11:34 AM) Temperature [96.8-100.4 DegF] 98.5 DegF (08/29/19 11:34 AM) Mode of Delivery (Oxygen) Room air (08/29/19 6:40 PM) Room air (08/29/19 2:54 PM) Room air (08/29/19 11:34 AM) Blood pressure sites Arm, right (08/29/19 11:34 AM) Temperature Route Oral (08/29/19 11:34 AM) Social History Social History Type Response Smoking Status Current every day sm oker; Type: Cigarettes; Tobacco use times per day: smokes 5 cigaretets per day; Number of years: 20; Total pack years: 20; entered on: 02/15/16 Sex Medical Equipment Implanted Date:12/27/17Target Site:Abdomen Description Quantity MRI Company Model MESH BARD 6.6X6.6IN 15X15 CM - BARD ([id number]) 1 Bard Unknown GARO:No Information Assigning Authority: FDA
--- OUTSIDE RECORDS SUMMARY | 2023-10-30 07:25 | XMS_ITS | Continuity of Care Document ---
Author Organization [facility] Address [address] [place] [address]- Care Team Providers Care Power Mule Operator Name Role Phone Ro Janak RODRIGUEZ Primary Care Physician En[place] [facility] [place] Date(s): 01/12/22 - 02/11/22 [facility] [address] [place] [address]- Attending Physician: Herminio Myles Admitting Physician: Herminio Myles Referring Physician: Herminio Myles Allergies, Adverse Reactions, Alerts No Known Allergies Medications atorvastatin 80 mg oral tablet 1 tablet = 80 mg, By Mouth, Daily at bedtime, 0 Refills, Maintenance Start Date: 02/13/12 Status: Ordered carvedilol 6.25 mg oral tablet 6.25 mg, 1, tablet, By Mouth, 2 times a day, # 60 tablet, Refills 5, Tot. Refills 5, Maintenance, 06/24/21 15:16:00 EDT, Route to Pharmacy Electronically, [facility]/pharmacy #[id number], Partial fill upon patient request if the prescription is for a schedule II o... Start Date: 06/24/21 Status: Ordered carvedilol 6.25 mg oral tablet 1, tablet, By Mouth, 2 times a day, # 180 tablet, Refills 3, Maintenance, 12/19/21 8:35:00 EST, Route to Pharmacy Electronically, [facility] 36892, 162.56, cm, 06/16/21 8:16:00 EDT, Height, 116.8, kg,10/14/20 13:50:00 EDT, Dry Weight Start Date: 12/19/21 Status: Ordered Centrum Silver 1 tab, By Mouth, Daily, 0 Refills, Maintenance, 02/14/16 20:44:22 EST Start Date: 02/14/16 Status: Ordered clonazePAM 0.5 mg oral tablet 1 tablet = 0.5 mg, By Mouth, 3 times a day, 0 Refills, Maintenance, 05/13/19 15:05:00 EDT Start Date: 05/13/19 Status: Ordered Evening [place] 4 gelcaps, By Mouth, Daily, 0 Refills, [...] 0 Refills, Maintenance, 10/14/20 15:35:00 EDT, Tablet, [facility], Partial fill upon patient request if the prescription is for a schedule II opioi... 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 LVH (left ventricular hypertrophy) Confirmed Active Severe obesity Confirmed Active Social History Social History Type [...] Care Team Personnel Name: Deyanira Holden Position: [facility] Onco RN Member Role: Primary Care Nurse Name: Linda Harris RN Position: [facility] SN RN Member Role: Primary Care Nurse Name: Janak Greer MD Position: [facility] Physician (General Medicine) Member Role: PCP Address: Address: [address] [place] [address] Name: Tammy Montelongo RN Position: [facility] RN Member Role: Primary Care Nurse Care Team Related Persons Name: DANIELA GRAY Address: home [address] [place] [address] Name: JASMINE VILLAR Address: home [address] [place] [address]
--- OUTSIDE RECORDS SUMMARY | 2023-10-30 07:25 | XMS_ITS | Continuity of Care Document ---
Author Organization [facility] Address [address] [place] [address]- Care Team Providers Care Piano Accompanist Name Role Phone Janak Greer MD Primary Care Physician Encounter [facility] [place] Date(s): 05/19/20 - 07/19/20 [facility] [address] [place] [address] [address] Attending Physician: Lakshmi Shrestha MD Admitting Physician: Lakshmi Shrestha MD Referring Physician: Leah Guerra Allergies, Adverse Reactions, Alerts Substance Reaction Severity [...] EDT Start Date: 05/13/19 Status: Ordered Evening [place] 0 Refills, Maintenance, 05/14/20 10:03:00 EDT, Partial [...] MESH BARD 6.6X6.6IN 15X15 CM - BARD ([id number]) 1 Bard Unknown GARO:No Information Assigning Authority: FDA
--- OUTSIDE RECORDS SUMMARY | 2023-10-30 07:25 | XMS_ITS | Continuity of Care Document ---
Author Organization [facility] ter Address [address] [place] [address]- Care Team Providers Care Film Tests Checker Name Role Phone Janak Greer MD Primary Care Physician [phone] Encounter [facility] [place] Date(s): 02/21/20 - 08/20/[address] [address] Attending Physician: Tunde Perez MD Admitting Physician: Tunde Perez MD Referring Physician: Tunde Perez MD Allergies, Adverse Reactions, Alerts Substance Reaction [...] EDT Start Date: 05/13/19 Status: Ordered Evening [place] 0 Refills, Maintenance, 05/14/20 10:03:00 EDT, Partial [...] MESH BARD 6.6X6.6IN 15X15 CM - BARD ([id number]) 1 Bard Unknown GARO:No Information Assigning Authority: FDA
--- OUTSIDE RECORDS SUMMARY | 2023-10-30 07:25 | XMS_ITS | Continuity of Care Document ---
Author Organization [facility] ter Address [address] [place] [address]- Care Team Providers Care Cash Register Balancer Name Role Phone Janak Greer MD Primary Care Physician [phone] [place] [facility] [place] [id number] Date(s): 09/12/22 - 12/22/[address] [address] Attending Physician: Twila Prajapati MD Admitting Physician: Twila Prajapati MD Referring Physician: Janak Greer MD Allergies, [...] 06/24/21 15:16:00 EDT, Route to Pharmacy Electronically, [facility]/pharmacy #[id number], Partial fill upon patient request if the prescription is for a schedule II o... Start Date: 06/24/21 Status: Ordered carvedilol 6.25 mg oral tablet 1, tablet, By Mouth, 2 times a day, # 180 tablet, Refills 3, Maintenance, 12/19/21 8:35:00 EST, Route to Pharmacy Electronically, [facility] STORE 99287, 162.56, cm, 06/16/21 8:16:00 EDT, Height, 116.8, [...] DAY Start Date: 05/11/22 Status: Ordered Evening [place] 4 gelcaps, By Mouth, Daily, 0 Refills, [...] tablet, 0 Refills, Maintenance, 07/26/22 19:09:00 EDT, [facility]/pharmacy #[id number], Partial fill upon patient request [...] 0 Refills, Maintenance, 10/14/20 15:35:00 EDT, Tablet, [facility], Partial fill upon patient request [...] Care Team Personnel Name: Deyanira Holden Position: [facility] Onco RN Member Role: Primary Care Nurse Name: Linda Harris RN Position: [facility] SN RN Member Role: Primary Care Nurse Name: Janak Greer MD Position: [facility] Physician - Primary Care Member Role: PCP Address: Address: [address] [place] [address] Name: Tammy Montelongo RN Position: [facility] SN RN Member Role: Primary Care Nurse Care Team Related Persons Name: DANIELA GRAY Address: home [address] [place] [address] Name: JASMINE VILLAR Address: home [address] [place] [address]
--- OUTSIDE RECORDS SUMMARY | 2023-10-30 07:25 | XMS_ITS | Continuity of Care Document ---
Author Organization [facility] Address [address] [facility] [address] [place] [address]- Care Team Providers Care Media Arts Professor Name Role Phone Ro Janak RODRIGUEZ Primary Care Physician Encounter 12/24/22 - 12/31/22 [facility] [address], [address] [address] Attending Physician: Mariel CARRERA, Letty Emmanuel Admitting Physician: Mariel CARRERA, Letty Emmanuel Referring Physician: Mariel CARRERA, Letty Emmanuel Allergies, Adverse Reactions, Alerts No Known Allergies Medications atorvastatin 80 mg oral tablet 1 tablet = 80 mg, By Mouth, Daily at bedtime, 0 Refills, Maintenance Start Date: 02/13/12 Status: Ordered carvedilol 6.25 mg oral tablet 6.25 mg, 1, tablet, By Mouth, 2 times a day, # 60 tablet, Refills 5, Tot. Refills 5, Maintenance, 06/24/21 15:16:00 EDT, Route to Pharmacy Electronically, [facility]/pharmacy #[id number], Partial fill upon patient request if the prescription is for a schedule II o... Start Date: 06/24/21 Status: Ordered carvedilol 6.25 mg oral tablet 1, tablet, By Mouth, 2 times a day, # 180 tablet, Refills 3, Tot. Refills 3, Maintenance, 12/27/22 13:18:00 EST, Route to Pharmacy Electronically, [facility]/pharmacy #[id number], 163, cm, 08/23/22 9:04:00 EDT, [...] DAY Start Date: 05/11/22 Status: Ordered Evening [place] 4 gelcaps, By Mouth, Daily, 0 Refills, [...] tablet, 0 Refills, Maintenance, 07/26/22 19:09:00 EDT, [facility]/pharmacy #[id number], Partial fill upon patient request [...] 0 Refills, Maintenance, 10/14/20 15:35:00 EDT, Tablet, [facility], Partial fill upon patient request if the prescription is for a schedule II opioi... 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 No known palpable abnormalities. COMPARISON: [facility] dating back to 01/01/2020. TECHNIQUE: Full-field digital CC and MLO 3D tomosynthesis images of both breasts were acquired. Computer-aided detection (CAD) was utilized in the interpretation of this study. DENSITY: The breast tissue contains scattered areas of fibroglandular density. FINDINGS: No suspicious masses, suspicious microcalcifications, or areas of architectural distortion are seen in either breast to suggest malignancy. IMPRESSION: No mammographic evidence of malignancy. RECOMMENDATION: Annual mammographic screening BI-RADS: 1 (Negative) Lay letter mailed to patient WSN: [id number] Ordering Physician: Letty Floyd Dictated By: Lindsay Montana MD, I Dictated Date/Time: 12/25/22 9:50 am Reviewed By: Lindsay Montana MD, I Signed By: Lindsay Montana MD, I Signed Date/Time: 12/25/22 9:50 am Transcribed By: LINDA Tanning Wheel Filler Date/Time: 12/25/22 9:48 am Birads: Social History Social History Type Response Smoking [...] Care Team Personnel Name: Deyanira Holden Position: [facility] Onco RN Member Role: Primary Care Nurse Name: Linda Harris RN Position: [facility] SN RN Member Role: Primary Care Nurse Name: Janak Greer MD Position: [facility] Physician - Primary Care Member Role: PCP Address: Address: [address] [place] [address] Name: Tammy Montelongo RN Position: [facility] SN RN Member Role: Primary Care Nurse Care Team Related Persons Name: DANIELA GRAY Address: home [address] [place] [address] Name: JASMIEN VILLAR Address: home [address] [place] [address]
--- OUTSIDE RECORDS SUMMARY | 2023-10-30 07:25 | XMS_ITS | Continuity of Care Document ---
Author Organization [facility] ter Address [address] [place] [address]- Care Team Providers Care Engine Repairer Service Name Role Phone Janak Greer MD Primary Care Physician [phone] Encounter [facility] [place] Date(s): 06/18/19 - 06/21/[address] [address]- [facility] Encounter Diagnosis Pulmonary embolism(Final) - 06/18/19 Discharge Disposition: A-D/C Home Attending Physician: Lalito Damon Sr, MD Admitting Physician: Ascencion RODRIGUEZ, Trever Coates Referring Physician: Not on Staff, Referring MD [...] 1 tablet = 0.5 mg, By Mouth, Daily, given along wiht night time dose, 0 Refills, Maintenance, 06/19/19 3:49:00 EDT, Tablet Start Date: 06/19/19 Status: Ordered clonazePAM 0.5 mg oral tablet [...] EDT, Tablet Start Date: 06/19/19 Status: Ordered Lovenox 120 mg/0.8 mL injectable solution = 110 mg, Subcutaneous Injection, Every 12 hours, *Note: Treatment = 1mg/kg/dose* every 12 hours, stop once PT/INR is above 2, # 6 each, 0 Refills, Acute 06/23/19 9:00:00 EDT, 06/20/19 8:12:00 EDT, [facility], 163, cm, 06/20/19 7:35:00 E... Start Date: 06/20/19 Stop Date: 06/23/19 Status: Ordered OXcarbazepine 300 mg oral tablet [...] tablet, 0Refills, Maintenance, 06/20/19 8:15:00 EDT, Tablet, [facility], 163, cm, 06/20/19 7:35:00 EDT, Height, 108.4, kg, 06/19/19 17:07:00 EDT,... Start Date: 06/20/19 Status: Ordered Problem List Condition Effective Dates Status Health Status Inform ant CKD (chronic kidney disease)(Confirmed) Active Results Radiology Reports * Exam Date Time Procedure Performing Provider Status 06/18/19 5:08 PM Chest 2 Views Frontal and Lat Belle Hoover; Auth (Verified) Notes: (Chest 2 Views Frontal and Lat) Reason For Exam: Shortness of Breath RESULT: Chest 2 Views Frontal and Lat Chest 2 Views Frontal and Lat Refer to EMR; Reason: Shortness of Breath; Clinical Question(s): CHF; Hx of Present Illness: Midsternal chest pressure that started abot Noon today. Radiates up to throat. Non-reproducible. Patient was drinking coffee when it started. Denies SOB, Fevers or any other associated symptoms at this time; Other Objective Findings: Patient alert and oriented and acting appropriately in triage. HRR. LSCA. COMPARISON: 11/28/2017 FINDINGS: LINES AND TUBES: None. LUNGS AND PLEURA: Clear lungs. Normal pulmonary vascularity. No pleural effusion. No pneumothorax. HEART, MEDIASTINUM AND MICHAELA: Heart is normal in size. Normal mediastinal and hilar contour. BONES AND SOFT TISSUES: No acute abnormality. IMPRESSION: No acute abnormality. WSN: [id number] Ordering Physician: Leslie Staley Dictated By: Roe Villalpando MD Dictated Date/Time: 06/18/19 5:23 pm Reviewed By: Roe Villalpando MD Signed By: Roe Villalpando MD Signed Date/Time: 06/18/19 5:23 pm Transcribed By: LINDA Transcribed Date/Time: 06/18/19 5:22 pm Vital Signs Most recent to oldest [Reference Range]: 1 2 3 Height 163 cm (06/21/19 7:37 AM) 163 cm (06/21/19 4:52 AM) 163 cm (06/21/19 12:14 AM) Weight 108.4 kg (06/19/19 5:07 PM) 108.4 kg (06/19/19 3:23 PM) 108.4 kg (06/19/19 12:28 PM) Oxygen Saturation [94-100 %] 92 % *L* (06/21/19 7:37 AM) 94 % (06/21/19 4:52 AM) 94 % (06/21/19 12:14 AM) Pulse Rate [55-90 bpm] 71 bpm (06/21/19 7:37 AM) 63 bpm (06/21/19 4:52 AM) 67 bpm (06/21/19 12:14 AM) Body Mass Index [18.5-24.99] 40.8 *>HHI* (06/19/19 5:07 PM) 40.8 *>HHI* (06/19/19 3:23 PM) 40.8 *>HHI* (06/19/19 12:28 PM) Blood Pressure [90-138/55-84 mm Hg] 138/67mm Hg (06/21/19 7:37 AM) 114/64mm Hg (06/21/19 4:52 AM) 118/61mm Hg (06/21/19 12:14 AM) Respiratory Rate [16-30 br/min] 20 br/min (06/21/19 7:37 AM) 18 br/min (06/21/19 4:52 AM) 18 br/min (06/21/19 12:14 AM) Temperature [96.8-100.4 DegF] 97.6 DegF (06/21/19 7:37 AM) 97.9 DegF (06/21/19 4:52 AM) 97.9 DegF (06/21/19 12:14 AM) Mode of Delivery (Oxygen) Room air (06/21/19 7:37 AM) Room air (06/21/19 4:52 AM) Room air (06/21/19 12:14 AM) Blood pressure sites Arm, left (06/21/19 7:37 AM) Arm, left (06/21/19 4:52 AM) Arm, right (06/21/19 12:14 AM) Temperature Route Oral (06/21/19 7:37 AM) Oral (06/21/19 4:52 AM) Oral (06/21/19 12:14 AM) Dry Weight 108.4 kg (06/19/19 5:07 PM) 108.4 kg (06/19/19 3:23 PM) 108.4 kg (06/19/19 12:28 PM) Weight Obtained Via Standing scale (06/18/19 12:47 PM) Dry Weight Obtained Via Standing scale (06/18/19 12:47 PM) Social History Social History Type Response Smoking Status Current every day guanaco richardson; Type: Cigarettes; Tobacco use times per day: smokes 5 cigaretets per day; Number of years: 20; Total pack years: 20; entered on: 02/15/16 Sex Medical Equipment Implanted Date:12/27/17Target Site:Abdomen Description Quantity MRI Company Model MESH BARD 6.6X6.6IN 15X15 CM - BARD ([id number]) 1 Bard Unknown GARO:No Information Assigning Authority: FDA
--- OUTSIDE RECORDS SUMMARY | 2023-10-30 07:25 | XMS_ITS | Continuity of Care Document ---
Author Organization [facility] Address [address] [place] [address]- Care Team Providers Care Ground Water Technician Name Role Phone Janak Greer MD Primary Care Physician Encounter [facility] [place] Date(s): 06/19/20 - 07/19/20 [facility] [address] [place] [address] [id number] Attending Physician: Herminio Myles Admitting Physician: AdmtrHerminio Referring Physician: Admtr, Ar8 Allergies, Adverse Reactions, [...] EDT Start Date: 05/13/19 Status: Ordered Evening [place] 0 Refills, Maintenance, 05/14/20 10:03:00 EDT, Partial [...] MESH BARD 6.6X6.6IN 15X15 CM - BARD ([id number]) 1 Bard Unknown GARO:No Information Assigning Authority: FDA
--- OUTSIDE RECORDS SUMMARY | 2023-10-30 07:25 | XMS_ITS | Continuity of Care Document ---
Author Organization [facility] Address [address] [place] [address]- Care Team Providers Care Dx Board Operator Name Role Phone Janak Greer MD Primary Care Physician Encounter [facility] Date(s): 05/14/20 - 05/21/20 [facility] [address] [place] [address]- Attending Physician: Marilu Coe MD Referring Physician: Tunde Perez MD Allergies, [...] EDT Start Date: 05/13/19 Status: Ordered Evening [place] 0 Refills, Maintenance, 05/14/20 10:03:00 EDT, Partial [...] oldest [Reference Range]: 1 Height 163 cm (05/14/20 9:57 AM) Pulse Rate [55-90 bpm] 84 bpm (05/14/20 9:57 AM) Blood Pressure [90-138/55-84 mm Hg] 118/ 42mm Hg (05/14/20 9:57 AM) Blood pressure sites Arm, left (05/14/20 9:57 AM) Social History Social History Type Response Smoking Status Current every day guanaco richardson; Type: Cigarettes; Tobacco use times per day: smokes 5 cigaretets per day; Number of years: 20; Total pack years: 20; entered on: 02/15/16 Sex Medical Equipment Implanted Date:12/27/17Target Site:Abdomen Description Quantity MRI Company Model MESH BARD 6.6X6.6IN 15X15 CM - ([id number]) 1 Bard Unknown GARO:No Information Assigning Authority: FDA
--- OUTSIDE RECORDS SUMMARY | 2023-10-30 07:25 | XMS_ITS | Continuity of Care Document ---
Author Organization [facility] Address [address] [place] [address]- Care Team Providers Care Computing Consultant Name Role Phone Janak Greer MD Primary Care Physician [phone] Encounter [facility] [place] [facility] [place] [id number] Date(s): 07/03/23 - 08/02/23 [facility] [address] [place] [id number] Allergies, Adverse Reactions, Alerts No Known Allergies Medications atorvastatin 80 mg oral tablet 1 tablet = 80 mg, By Mouth, Daily at bedtime, 0 Refills, Maintenance Start Date: 02/13/12 Status: Ordered busPIRone 15 mg oral tablet TAKE 1 TABLET BY MOUTH TWICE A DAY Start Date: 08/01/23 Status: Ordered carvedilol 3.125 mg oral tablet 3.125 mg, 1, tablet, By Mouth, 2 times a day, to take with 6.25 mg dose, # 60 tablet, Refills 11, Tot. Refills 11, Maintenance, 02/17/23 8:28:00 EST, Route to Pharmacy Electronically, [facility]/pharmacy #[id number], Partial fill upon patient request if the prescr... Start Date: 02/17/23 Stop Date: 02/12/24 Status: Ordered carvedilol 6.25 mg oral tablet 1, tablet, By Mouth, 2 times a day, # 180 tablet, Refills 3, Tot. Refills 3, Maintenance, 12/27/22 13:18:00 EST, Route to Pharmacy Electronically, [facility]/pharmacy #[id number], 163, cm, 08/23/22 9:04:00 EDT, Height, 120.5, kg, 07/26/22 15:18:00 EDT, Dry Weight Start Date: 12/27/22 Status: Ordered clonazePAM 0.5 mg oral tablet [...] EVERY DAY Start Date: 05/11/22 Status: Ordered famotidine 20 mg oral tablet 20 mg, 1, tablet, By Mouth, Daily at bedtime, # 180 tablet, Refills 0, Maintenance, 10/06/19 0:08:00 EDT Start Date: 10/06/19 Status: Ordered Humalog 100 u/ml subcutaneous injection Subcutaneous Infusion, 0 Refills, Maintenance, 10/06/19 0:09:00 EDT Start Date: 10/06/19 Status: Ordered hydrOXYzine pamoate 25 mg oral capsule 1 capsule = 25 mg, By Mouth, 2 times a day, # 40 capsule, 0 Refills, Maintenance, 08/01/23 8:26:00 EDT, Capsule, Partial fill upon patient request if the prescription is for a schedule II opioid drug. Start Date: 08/01/23 Status: Ordered levothyroxine 0.025 mg oral tablet 1 tablet = 25 mcg, By Mouth, Daily, 0 Refills, Maintenance, 05/13/19 15:04:00 EDT Start Date: 05/13/19 Status: Ordered Linzess 145 mcg oral capsule TAKE 1 CAPSULE BY MOUTH EVERY DAY Start Date: 08/01/23 Status: Ordered Mounjaro 7.5 mg/0.5 mL subcutaneous solution = 7.5 mg, Subcutaneous Injection, Every week, rotate injection sites, # 4 each, 3 Refills, Maintenance, 07/05/23 7:50:00 EDT, Solution, [id number], 164, cm, 05/22/23 15:09:00 EDT, Height, 120.9, kg, 03/31/23 19:36:00 EST, Dry Weight Start Date: 07/05/23 Status: Ordered Myrbetriq 50 mg oral tablet, extended release TAKE 1 TABLET BY MOUTH EVERY DAY Start Date: 08/01/23 Status: Ordered Omeprazole = 20 mg, By [...] EDT Start Date: 06/19/19 Status: Ordered Restasis 0.05% ophthalmic emulsion 0 Refills, Maintenance, 05/11/22 13:26:00 EDT, Partial fill upon patient request if the prescription is for a schedule II opioid drug. Start Date: 05/11/22 Status: Ordered traZODone 100 mg oral tablet 100 mg, 1, tablet, By Mouth, Daily at bedtime, PRN, # 60 tablet, Refills 0, Maintenance, Insomnia, 06/19/19 3:53:00 EDT Start Date: 06/19/19 Status: Ordered Ventolin HFA 108 mcg/inh inhalation aerosol with adapter 2 puffs, Inhalation, 4 times a day, PRN for wheezing, # 18 Gm, 0 Refills, Maintenance, 08/01/23 8:26:00 EDT, Aerosol, Partial fill upon patient request if the prescription is for a schedule II opioiddrug. Start Date: 08/01/23 Status: Ordered Wixela Inhub 250 mcg-50 mcg inhalation powder 1 inhalation, Inhalation, 2 times a day, rinse mouth and throat after use, 0 Refills, Maintenance, 08/01/23 8:24:00 EDT, Powder, Partial fill upon patient request if the prescription is for a schedule II opioid drug. 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 LVH (left ventricular hypertrophy) Confirmed Active SHAWN on CPAP Confirmed Active Severe obesity Confirmed Active Type [...] Care Team Personnel Name: Deyanira Holden Position: [facility] Onco RN Member Role: Primary Care Nurse Name: Linda Harris RN Position: [facility] SN RN Member Role: Primary Care Nurse Name: Janak Greer MD Position: [facility] Physician - Primary Care Member Role: PCP Address: Address: [address] [place] [id number] [place] [address] Name: Tammy Montelongo RN Position: [facility] SN RN Member Role: Primary Care Nurse Care Team Related Persons Name: DANIELA GRAY Address: home [address] [place] [address] Name: JASMINE VILLAR Address: home [address] [place] [id number]
--- OUTSIDE RECORDS SUMMARY | 2023-10-30 07:25 | XMS_ITS | Continuity of Care Document ---
Author Organization [facility] Address [address] [place] [address]- Care Team Providers Care Gum Remover Name Role Phone Janak Greer MD Primary Care Physician [phone] Encounter [facility] [place] [place] [facility] [id number] Date(s): 01/20/22 - 02/19/22 [facility] [address] [place] [address]- Attending Physician: Herminio Myles Admitting Physician: AdmHerminio merrill Referring Physician: Admtr, Ar8 Allergies, Adverse Reactions, Alerts No Known Allergies Medications atorvastatin 80 mg oral tablet 1 tablet = 80 mg, By Mouth, Daily at bedtime, 0 Refills, Maintenance Start Date: 02/13/12 Status: Ordered carvedilol 6.25 mg oral tablet 6.25 mg, 1, tablet, By Mouth, 2 times a day, # 60 tablet, Refills 5, Tot. Refills 5, Maintenance, 06/24/21 15:16:00 EDT, Route to Pharmacy Electronically, [facility]/pharmacy #[id number], Partial fill upon patient request if the prescription is for a schedule II o... Start Date: 06/24/21 Status: Ordered carvedilol 6.25 mg oral tablet 1, tablet, By Mouth, 2 times a day, # 180 tablet, Refills 3, Maintenance, 12/19/21 8:35:00 EST, Route to Pharmacy Electronically, [id number], 162.56, cm, 06/16/21 8:16:00 EDT, Height, 116.8, kg,10/14/20 13:50:00 EDT, Dry Weight Start Date: 12/19/21 Status: Ordered Centrum Silver 1 tab, By Mouth, Daily, 0 Refills, Maintenance, 02/14/16 20:44:22 EST Start Date: 02/14/16 Status: Ordered clonazePAM 0.5 mg oral tablet 1 tablet = 0.5 mg, By Mouth, 3 times a day, 0 Refills, Maintenance, 05/13/19 15:05:00 EDT Start Date: 05/13/19 Status: Ordered Evening [place] 4 gelcaps, By Mouth, Daily, 0 Refills, [...] 0 Refills, Maintenance, 10/14/20 15:35:00 EDT, Tablet, [facility], Partial fill upon patient [...] Unknown 12/10/21 Unknown Unknown Active Un known Note * Event Display: MRI Ankle/Foot Authored Date: [id number] Patient Care team information Care Team Personnel Name: Deyanira Holden Position: [facility] Onco RN Member Role: Primary Care Nurse Name: Lidna Harris RN Position: [facility] SN RN Member Role: Primary Care Nurse Name: Janak Greer MD Position: [facility] Physician (General Medicine) Member Role: PCP Address: Address: [address] [place] [id number] Name: Tammy Montelongo RN Position: S RN Member Role: Primary Care Nurse Care Team Related Persons Name: ISAAC JADASJ Address: home [address] [place] [address] Name: JASMINE VILLAR Address: home [address] [place] [address]
--- OUTSIDE RECORDS SUMMARY | 2023-10-30 07:25 | XMS_ITS | Continuity of Care Document ---
Author Organization [facility] ter Address [address] [place] [address]- Care Team Providers Care Piling Cutter Name Role Phone Janak Greer MD Primary Care Physician Encounter [facility] [place] Date(s): 08/23/19 - 09/29/[address] [address]- [facility] Attending Physician: Janak Greer MD Admitting [...] tablet, 0Refills, Maintenance, 06/20/19 8:15:00 EDT, Tablet, [facility], 163, cm, 06/20/19 7:35:00 [...] Model MESH BARD 6.6X6.6IN 15X15 CM - Endoclear ([id number]) 1 Bard Unknown GARO:No Information Assigning Authority: FDA
--- OUTSIDE RECORDS SUMMARY | 2023-10-30 07:25 | XMS_ITS | Continuity of Care Document ---
Author Organization [facility] Address [address] [place] [address]- Care Team Providers Care Quality Audit Representative Name Role Phone Janak Greer MD Primary Care Physician [phone] Encounter [facility] [place] Date(s): 12/26/22 - 01/25/23 [facility] [address] [place], [place] [address] Attending Physician: Herminio Myles Admitting Physician: AdmHerminio merrill Referring Physician: Admtr ArKimberly Allergies, Adverse Reactions, Alerts No Known Allergies Medications atorvastatin 80 mg oral tablet 1 tablet = 80 mg, By Mouth, Daily at bedtime, 0 Refills, Maintenance Start Date: 02/13/12 Status: Ordered carvedilol 6.25 mg oral tablet 6.25 mg, 1, tablet, By Mouth, 2 times a day, # 60 tablet, Refills 5, Tot. Refills 5, Maintenance, 06/24/21 15:16:00 EDT, Route to Pharmacy Electronically, [facility]/pharmacy #[id number], Partial fill upon patient request if the prescription is for a schedule II o... Start Date: 06/24/21 Status: Ordered carvedilol 6.25 mg oral tablet 1, tablet, By Mouth, 2 times a day, # 180 tablet, Refills 3, Tot. Refills 3, Maintenance, 12/27/22 13:18:00 EST, Route to Pharmacy Electronically, [facility]/pharmacy #[id number], 163, cm, 08/23/22 9:04:00 EDT, [...] DAY Start Date: 05/11/22 Status: Ordered Evening [place] 4 gelcaps, By Mouth, Daily, 0 Refills, [...] 0 Refills, Maintenance, 07/26/22 19:09:00 EDT, [facility]/pharmacy #[id number], Partial fill upon patient request [...] 0 Refills, Maintenance, 10/14/20 15:35:00 EDT, Tablet, [facility], Partial fill upon patient [...] Care Team Personnel Name: Deyanira Holden Position: [facility] Onco RN Member Role: Primary Care Nurse Name: Linda Harris RN Position: [facility] SN RN Member Role: Primary Care Nurse Name: Janak Greer MD Position: [facility] Physician - Primary Care Member Role: PCP Address: Address: [address] [place] [address] Name: Tammy Montelongo RN Position: [facility] SN RN Member Role: Primary Care Nurse Care Team Related Persons Name: DANIELA GRAY Address: home [address] [place] [address] Name: JASMINE VILLAR Address: home [address] [place] [address]
--- OUTSIDE RECORDS SUMMARY | 2023-10-30 07:25 | XMS_ITS | Continuity of Care Document ---
Author Organization [facility] Address [address] [place] [address]- Care Team Providers Care Police Shift Commander Name Role Phone Ro Janak RODRIGUEZ Primary Care Physician Encounter [facility] [id number] Date(s): 02/24/22 - 03/26/22 [facility] [address] [place], [place] [address] Attending Physician: Herminio Myles Admitting Physician: AdmtrHerminio Referring Physician: Admtr ArKimberly Allergies, Adverse Reactions, [...] 06/24/21 15:16:00 EDT, Route to Pharmacy Electronically, [facility]/pharmacy #[id number], Partial fill upon patient request if the prescription is for a schedule II o... Start Date: 06/24/21 Status: Ordered carvedilol 6.25 mg oral tablet 1, tablet, By Mouth, 2 times a day, # 180 tablet, Refills 3, Maintenance, 12/19/21 8:35:00 EST, Route to Pharmacy Electronically, [id number], 162.56, cm, 06/16/21 8:16:00 EDT, Height, 116.8, kg,10/14/20 13:50:00 EDT, Dry Weight Start Date: 12/19/21 Status: Ordered Centrum Silver 1 tab, By Mouth, Daily, 0 Refills, Maintenance, 02/14/16 20:44:22 EST Start Date: 02/14/16 Status: Ordered clonazePAM 0.5 mg oral tablet 1 tablet = 0.5 mg, By Mouth, 3 times a day, 0 Refills, Maintenance, 05/13/19 15:05:00 EDT Start Date: 05/13/19 Status: Ordered Evening [place] 4 gelcaps, By Mouth, Daily, 0 Refills, [...] 0 Refills, Maintenance, 10/14/20 15:35:00 EDT, Tablet, [facility], Partial fill upon patient request if [...] Care Team Personnel Name: Deyanira Holden Position: [facility] Onco RN Member Role: Primary Care Nurse Name: Linda Harris RN Position: [facility] SN RN Member Role: Primary Care Nurse Name: Janak Greer MD Position: [facility] Physician (General Medicine) Member Role: PCP Address: Address: [address] [place] [address]- [place] Name: Jayda WYLIE, Tammy Position: S SN RN Member Role: Primary Care Nurse Care Team Related Persons Name: DANIELA GRAY Address: home [address] [place] [address] Name: JASMINE VILLAR Address: home [address] [place] [address]
--- OUTSIDE RECORDS SUMMARY | 2023-10-30 07:25 | XMS_ITS | Continuity of Care Document ---
Author Organization [facility] ter Address [address] [place] [address]- Care Team Providers Care Lighting Adviser Name Role Phone Ro Janak RODRIGUEZ Primary Care Physician [place] [facility] [place] 05/10/20 - 05/11/[address] [address] Encounter Diagnosis Acute chest pain(Final) - 05/10/20 CKD (chronic kidney disease)(Final) - 05/10/20 Discharge Disposition: A-D/C Home Attending Physician: Sarah Garduno MD Admitting Physician: Mary Kay Vilchis DO Referring Physician: Not on Staff, Referring MD [...] EDT, Tablet Start Date: 06/19/19 Status: Ordered OXcarbazepine 300 mg oral tablet [...] Exam Date Time Procedure Performing Provider Status 05/10/20 12:16 PM Chest Portable [place] , [place]; Auth (Verified) Notes: (Chest Portable) Reason For Exam: Shortness of Breath RESULT: Chest Portable Chest Portable Hx of Present Illness: generalized weakness, KIM, chest pain, SOB.; Reason: Shortness of Breath; Clinical Question(s): Pneumonia COMPARISON: 10/05/2019 FINDINGS: LINES AND TUBES: None. LUNGS AND PLEURA: Clear lungs. Normal pulmonary vascularity. No pleural effusion. No pneumothorax. HEART, MEDIASTINUM AND MICHAELA: Heart is normal in size. Normal upper mediastinal and hilar contour. BONES AND SOFT TISSUES: No acute abnormality. IMPRESSION: No acute abnormality. WSN: [id number] Ordering Physician: Jim Centeno Dictated By: Camilla Dahl MD Dictated Date/Time: 05/10/20 12:28 p Reviewed By: Camilla Dahl MD Signed By: Camilla Dahl MD Signed Date/Time: 05/10/20 12:28 pm Transcribed By: LINDA Transcribed Date/Time: 05/10/20 12:28 pm Vital Signs Most recent to oldest [Reference Range]: 1 2 3 Height 163 cm (05/11/20 5:28 PM) 163 cm (05/11/20 7:59 AM) 163 cm (05/11/20 4:15 AM) Weight 113 kg (05/11/20 3:18 AM) Oxygen Saturation [94-100 %] 94 % (05/11/20 5:28 PM) 95 % (05/11/20 7:59 AM) 93 % *L* (05/11/20 4:15 AM) Pulse Rate [55-90 bpm] 73 bpm (05/11/20 5:28 PM) 80 bpm (05/11/20 7:59 AM) 67 bpm (05/11/20 4:15 AM) Body Mass Index [18.5-24.99] 42.53 *>HHI* (05/11/20 3:18 AM) Blood Pressure [90-138/55-84 mm Hg] 163/77mm Hg *H* (05/11/20 5:28 PM) 130/70mm Hg (05/11/20 7:59 AM) 120/56mm Hg (05/11/20 4:15 AM) Respiratory Rate [16-30 br/min] 18 br/min (05/11/20 5:28 PM) 18 br/min (05/11/20 7:59 AM) 18 br/min (05/11/20 4:15 AM) Temperature [96.8-100.4 DegF] 98.1 DegF (05/11/20 5:28 PM) 97.7 DegF (05/11/20 7:59 AM) 97.7 DegF (05/11/20 4:15 AM) Liters per Minute 0 L/min (05/10/20 11:09 AM) Mode of Delivery (Oxygen) Room air (05/11/20 5:28 PM) Room air (05/11/20 7:59 AM) Room air (05/11/20 4:15 AM) Blood pressure sites Arm, left (05/11/20 5:28 PM) Arm, right (05/11/20 7:59 AM) Arm, right (05/11/20 4:15 AM) Temperature Route Oral (05/11/20 5:28 PM) Oral (05/11/20 7:59 AM) Oral (05/11/20 4:15 AM) Dry Weight 113 kg (05/11/20 3:18 AM) Dry Weight Obtained Via Patient/family s tated (05/11/20 3:18 AM) Social History Social History Type Response Smoking Status Current every day guanaco richardson; Type: Cigarettes; Tobacco use times per day: smokes 5 cigaretets per day; Number of years: 20; Total pack years: 20; entered on: 02/15/16 Sex Medical Equipment Implanted Date:12/27/17Target Site:Abdomen Description Quantity MRI Company Model MESH BARD 6.6X6.6IN 15X15 CM - BARD ([id number]) 1 Bard Unknown GARO:No Information Assigning Authority: FDA
--- OUTSIDE RECORDS SUMMARY | 2023-10-30 07:25 | XMS_ITS | Continuity of Care Document ---
Author Organization [facility] Address [address] [place] [address]- Care Team Providers Care Tire Beader Maker Name Role Phone Janak Greer MD Primary Care Physician Encounter [facility] [place] Date(s): 08/16/23 - 08/23/23 [facility] [address] [place] [id number]- Encounter Diagnosis Preoperative examination(Discharge Diagnosis) - 08/16/23 Hypertension(Discharge Diagnosis) - 08/16/23 HLD (hyperlipidemia)(Discharge Diagnosis) - 08/16/23 Attending Physician: Stewart Patterson MD Referring Physician: Janak Greer MD Allergies, [...] 8:28:00 EST, Route to Pharmacy Electronically, [facility]/pharm[facility] #[id number], Partial fill upon patient request if the prescr... Start Date: 02/17/23 Stop Date: 02/12/24 Status: Ordered carvedilol 6.25 mg oral tablet 1, tablet, By Mouth, 2 times a day, # 180 tablet, Refills 3, Tot. Refills 3, Maintenance, 12/27/22 13:18:00 EST, Route to Pharmacy Electronically, [facility]/pharmacy #[id number], 163, cm, 08/23/22 9:04:00 EDT, [...] 3 Refills, Maintenance, 07/05/23 7:50:00 EDT, Solution, [facility]/pharmacy #[id number], 164, cm, 05/22/23 15:09:00 EDT, Height, [...] Active Type 2 diabetes mellitus Confirmed Active Diagnosis Diagnosis Type Effective Dates Health Status Clinical Service Informant Preoperative examination Discharge Diagnosis 08/16/23 Hypertension Discharge Diagnosis 08/16/23 HLD (hyperlipidemia) Discharge Diagnosis 08/16/23 Vital Signs Most recent to oldest [Reference Range]: 1 2 Height 163 cm (08/16/23 11:02 AM) 163 cm (08/16/23 10:24 AM) Weight 116.7 kg (08/16/23 10:24 AM) Pulse Rate [55-90 bpm] 68 bpm (08/16/23 10:24 AM) Body Mass Index [18.5-24.99 kg/m2] 43.92 kg/m2 *>HHI* (08/16/23 10:24 AM) Blood Pressure [90-138/55-84 mm Hg] 126/ 76mm Hg (08/16/23 11:02 AM) 142/61mm Hg *H* (08/16/23 10:24 AM) Blood pressure sites Arm, left (08/16/23 10:24 AM) Weight Obtained Via Bed scale (08/16/23 10:24 AM) Social History Social History Type Response [...] Unknown 12/10/21 Unknown Unknown Active Un known Cardiology Outpatient Note * Leonardo RODRIGUEZ, Stewart Avila: PERFORM Event Display: Cardiology Note Office Authored Date: [id number] Patient: ??LUCIANO CHEVY ? Age:??62 Years?Sex:??Female?:??1960?? Patient Hx Cardiology Shared Clinical Summary 1.?? Hypertension 2. ??Dyslipidemia 3. ??SHAWN on CPAP 4.?? Obesity 5.?? History of abnormal stress test in 2008. ??Subsequent cardiac catheterization showed only minimal luminal irregularities and no obstructive??CAD. 6.?? History of DVT, PE??on warfarin 7.?? Left ventricular hypertrophy Indication for Consult CHEST PAIN STRESS TEST RESULTS History of Present Illness/Interval History Ms. Dean returns today for ongoing care.? She reports that she will be having a right knee arthroplasty done in October by Dr. Morrow at [facility].?? She did tell me that they had requested that we do a preoperative assessment at our visit today. ?? Of note, patient recently underwent an ENT procedure done under general anesthesia just last week.?? She had a polyp removal and drainage of chronic sinus purulence.?? This was done under general anesthesia.?? She did well perioperatively without issue.?? She had been seen in our general medicine pr eoperative clinic prior to that visit and thought to be low risk to proceed.?? ECG was done at thattime and looked normal. ?? Clinically, the patient is feeling well from a cardiovascular perspective.?? She denies any issues of chest pain or shortness of breath with day-to-day activity.?? Her primary limitation is really related to her knee pain and ankle pain.?? She does get occasional palpitations although these are stress related.?? She endorses significant anxiety about the health of her parents. ?? Blood pressure was initially elevated but improved on repeat.?? She monitors it at home and it can be somewhat labile. ?? She does tell me she has been able to lose 40 pounds with the help of Sarm[employer]un[employer].?? She hopes to continue to lose more weight after she can do more exercise following her knee surgery. Review of Systems Pertinent positives as per the HPI.? Physical Exam Vitals & Measurements HR:??68??(Peripheral)?? BP:??126/76?? HT:??163??cm?? WT:??116.7??kg?? BMI:??43.92?? Weight lb/oz: 257 lb 4 oz General:??In no acute distress HEENT:??Sclerae anicteric, mucous membranes moist Cardiovascular: ??Regular rhythm, normal first and second heart sounds.?? No murmurs or gallops.?No JVP Respiratory:?Clear to auscultation all lung martin GI: Normoactive bowel sounds, soft Extremities: Warm,??no??edema Neuro:??Nonfocal?? Psych: Alert and oriented with appropriate affect.?? Assessment/Plan 1.??Preoperative examination Reasonable risk to proceed with planned surgery. Patient's risk of perioperative event would be 0.3% by Daniels risk score and 0.2% by NSQIP calculator.?? These are considered low risk.?? Furthermore she denies any active cardiac issues.?? She has had 2 stress test done in the past 2 years as well which have not shown any evidence of coronary disease. Would proceed as planned without any additional cardiac testing Ordered: Follow up Appointment ?? 2.??Hypertension ??Improved on repeat.?? Continue current antihypertensive regimen ? 3.??HLD (hyperlipidemia) ??On atorvastatin ? Plan: 1. Continue current cardiac medications 2.??Would proceed with??planned surgery??without any additional cardiac testing ?? Follow up??in one year ?? The above note was prepared with the help of voice recognition software.?Portions of the notewere also created using [employer] (Gear[employer] based scribe software).?? Please excuse any grammatical or spelling errors that may have occurred. ?? Stewart Patterson MD [address] [facility], [address] [place] [address] [address] [facility], [address], [place], [place] [id number] [phone] ([phone])?? Allergies NKA Home Medications atorvastatin 80 mg oral tablet, 80 mg= 1 tablet, By Mouth, Daily at bedtime busPIRone 15 mg oral tablet carvedilol 3.125 mg oral tablet, 3.125 mg= 1 tablet, By Mouth, 2 times a day, 11 refills carvedilol 6.25 mg oral tablet, 1 tablet, By Mouth, 2 times a day, 3 refills clonazePAM 0.5 mg oral tablet, 0.5 mg= 1 tablet, By Mouth, 2 times a day Eliquis 5 mg oral tablet, 5 mg= 1 tablet, By Mouth, 2 times a day escitalopram 20 mg oral tablet famotidine 20 mg oral tablet, 20 mg= 1 tablet, By Mouth, Daily at bedtime Humalog 100 u/ml subcutaneous injection, Subcutaneous Infusion hydrOXYzine pamoate 25 mg oral capsule, 25 mg= 1 capsule, By Mouth, 2 times a day levothyroxine 0.025 mg oral tablet, 25 mcg= 1 tablet, By Mouth, Daily Linzess 145 mcg oral capsule Mounjaro 7.5 mg/0.5 mL subcutaneous solution, 7.5 mg, Subcutaneous Injection, Every week, 3 refills Myrbetriq 50 mg oral tablet, extended release Omeprazole, 20 mg, By Mouth, Daily OXcarbazepine 300 mg oral tablet, 600 mg= 2 tablet, By Mouth, 2 times a day Restasis 0.05% ophthalmic emulsion traZODone 100 mg oral tablet, 100 mg= 1 tablet, By Mouth, Daily at bedtime, PRN Ventolin HFA 108 mcg/inh inhalation aerosol with adapter, 2 puffs, Inhalation, 4 times a day, PRN Wixela Inhub 250 mcg-50 mcg inhalation powder, 1 inhalation, Inhalation, 2 times a day Lab Results Cardiology Labs WBC: 10.4 k/mm3 (03/31/23) RBC:??3.93 m/mm3??Low (03/31/23) Hgb: 11.7 Gm/dL (03/31/23) Hct: 36.2 % (03/31/23) MCV: 92.1 femtoliters (03/31/23) MCH: 29.8 pg (03/31/23) MCHC:??32.3 g/dL??Low (03/31/23) Platelet Count: 316 k/mm3 (03/31/23) RDW-SD: 42.7 femtoliters (03/31/23) Nucleated RBC (Automated): 0 #/100 WBC'S (03/31/23) Abs. Neut: 6.8 k/mm3 (03/31/23) Abs. Lymph: 2.3 k/mm3 (03/31/23) Abs. [place]: 0.7 k/mm3 (03/31/23) Abs. Eo: 0.4 k/mm3 (03/31/23) Abs. Baso: 0.1 k/mm3 (03/31/23) Neut %: 65.5 % (03/31/23) [place] %: 6.7 % (03/31/23) Eos %: 4 % (03/31/23) Baso %: 0.9 % (03/31/23) Imm Gran: 0.5 % (03/31/23) Abs. Imm Gran: 0.1 k/mm3 (03/31/23) Sodium: 134 mmol/L (03/31/23) Potassium: 4.7 mmol/L (03/31/23) Chloride: 100 mmol/L (03/31/23) Bicarbonate Level: 22 mmol/L (03/31/23) Glucose Level: 95 mg/dL (03/31/23) Hemoglobin A1C (Monitoring):??6.9 %??High (09/05/22) BUN: 18 mg/dL (03/31/23) Creatinine-Blood:??1.7 mg/dL??High (03/31/23) Calcium: 9.3 mg/dL (03/31/23) Protein, Total: 6.4 Gm/dL (02/04/23) Albumin: 4.1 Gm/dL (02/04/23) Alkaline Phosphatase:??124 units/L??High (02/04/23) AST (SGOT): 14 units/L (02/04/23) ALT (SGPT): 13 units/L (02/04/23) Bilirubin, Total: <0.2 (02/04/23) Nt-Probnp: <36 (02/04/23) Diagnostic Impression ECG ECG 12-Lead ?? 08:18:29 Please click on pdf link to open report ?? Signed By: Elbert Quan MD ?? ECG 12-Lead ?? 08:18:29 Ventricular Rate: 66 BPM Atrial Rate: 66 BPM P-R Interval: 178 ms QRS Duration: 92 ms Q-T Interval: 410 ms QTC Calculation(Bazett): 429 ms P Swayzee: 20 degrees R Swayzee: -2 degrees T Swayz[place]: 25 degrees Normal sinus rhythm Normal ECG When compared with ECG of 04-FEB-2023 17:51, No significant change was found Confirmed by ELBERT QUAN ([id number]) on 08/01/2023 8:43:37 AM ?? [place]: ELBERT QUAN ?? Signed By: Elbert Quan MD Stress Test NM Myocard Perf SPECT Multi ?? 07:30:00 Summary 1.) Normal myocardial perfusion imaging study following regadenoson administration. 2.) Normal rest and post-stress left ventricular chamber size and systolic function without regional wall motion abnormalities. 3.) Stress lab results will be reported separately. ?? This study is compared with study dated May. No change in serial pharmacologic stress imaging. ?? Signatures _ _ ?? Signed By: Javad Higginbotham MD Echo Echocardiogram - Complete ?? 07:36:04 Summary The left ventricular size is normal. There is mild to moderate concentric left ventricular hypertrophy. The LV systolic function is normal . The left ventricular ejection fraction is 60-65 %. No obvious wall motion abnormalities seen on limited views. LV diastolic function is indeterminate. The right ventricular size and function appears grossly normal. An accurate pulmonary artery pressure could not be obtained. ?? Comparison No prior study available for comparison. ?? Signature ?? Signed By: Royal Mayer MD Problem List/Past Medical History Ongoing Anxiety Chronic bipolar disorder Chronic sinusitis CKD (chronic kidney disease) Depression Fibromyalgia History of DVT (deep vein thrombosis) History of pulmonary embolism HLD (hyperlipidemia) Hypertension Hypothyroidism Instability of left ankle joint LVH (left ventricular hypertrophy) SHAWN on CPAP Severe obesity Type 2 diabetes mellitus Procedure/Surgical History bladder sling, PRIMITIVO 2002, Bilateral shoulder surgery, Umbilical hernia repair, cardiac catheterization Follow-Up Appointments Added Follow Up ?Time Frame ?Comments Stewart Patterson MD?08/28/2024 09:40?1YR FUV Social History Alcohol Use: Never. Sexual Preferred pronoun: She/her. Substance Abuse Use: Never. Tobacco Use: Former smoker, quit more than 30 days ago. Family History Mother: Cancer; HLD - Hyperlipidemia; Hypertension Father: DVT - Deep vein thrombosis; HLD - Hyperlipidemia; Hypertension; PE - Pulmonary embolism; Pacemaker rhythm Sister: Hypertension Brother: Raynaud's disease Note * Kari Reed: PERFORM Event Display: Patient Education/Instruction Authored Date: [id number] Ambulatory Adult Visit Summary [facility] [address] [place] [address] Name: CHEVY DEAN : 1960?? Visit: 08/16/2023 09:48?? Ambulatory Visit Instructions ?? Your Care Team Primary Care Provider Janak Greer MD? This Visit Provider Stewart Patterson MD Your Diagnosis Preoperative examination Hypertension HLD (hyperlipidemia) Vitals Signs Pulse Rate: 68 bpm Height: 163 cm Systolic Blood Pressure: 126 mm Hg Weight: 116.7 kg Diastolic Blood Pressure: 76 mm Hg Body Mass Index:??43.92 kg/m2??Critical ?? Body surface area: 2.3 What to do next Scheduled Follow-Up Appointments 2023 10:10 AM EDT ?? With: Marjorie Sousa MD Where: [facility] [address] [place] [id number]- Status: Pending 2023 10:00 AM EDT ?? Where: Diabetic Teaching Status: Pending Follow-Up Appointments Follow Up with??Leonardo RODRIGUEZ, Stewart Avila When:??08/28/2024 09:40 AM EDT Why: 1YR FUV Where: [address] [facility] [address] [place] [address]- Follow up Appointment - Ordered?-- in 1 year, 08/16/23 11:04:00 EDT Medications The list below reflects the information in our records and provided by you today along with any changes made during this visit. Please continue your medications until treatment is completed or stopped by your provider. If this is different from the information you have or there are other questions,please contact the prescribing provider. What How Much When Instructions Unchanged Albuterol (Ventolin HFA 108 mcg/ inh inhalation aerosol with adapter) 2 puff(s) Inhalation 4 times a day as needed for for wheezing Unchanged apixaban (Eliquis 5 mg oral tablet) 1 tab(s) Oral Twice a day Unchanged Atorvastatin (atorvastatin 80 mg oral tablet) 1 tab(s) Oral Daily at Bedtime Unchanged BusPIRone (busPIRone 15 mg oral tablet) TAKE 1 TABLET BY MOUTH TWICE A DAY ?? Unchanged Carvedilol (carvedilol 3.125 mg oral tablet) 1 tab(s) Oral Twice a day Duration: 30 Days to take with 6.25 mg dose ?? Unchanged Carvedilol (carvedilol 6.25 mg oral tablet) 1 tab(s) Oral Twice a day Unchanged Clonazepam (clonazePAM 0.5 mg oral tablet) 1 tab(s) Oral Twice a day Unchanged Cyclosporine Ophthalmic (Restasis 0.05% ophthalmic emulsion) Unchanged Escitalopram (escitalopram 20 mg oral tablet) TAKE 1 TABLET BY MOUTH EVERY DAY ?? Unchanged Famotidine (famotidine 20 mg oral tablet) 1 tab(s) Oral Daily at Bedtime Unchanged Fluticasone-Salmeterol (Wixela Inhub 250 mcg-50 mcg inhalation powder) 1 inhalation Inhalation Twice a day rinse mouth and throat after use ?? Unchanged HydrOXYzine (hydrOXYzine pamoate 25 mg oral capsule) 1 capsule Oral Twice a day Unchanged Insulin Lispro (Humalog 100 u/ ml subcutaneous injection) Subcutaneous Infusion Unchanged Levothyroxine (levothyroxine 0.025 mg oral tablet) 1 tab(s) Oral Daily Unchanged linaclotide (Linzess 145 mcg oral capsule) TAKE 1 CAPSULE BY MOUTH EVERY DAY ?? Unchanged mirabegron (Myrbetriq 50 mg oral tablet, extended release) TAKE 1 TABLET BY MOUTH EVERY DAY ?? Unchanged Omeprazole 20 Milligram Oral Daily Unchanged Oxcarbazepine (OXcarbazepine 300 mg oral tablet) 2 tab(s) Oral Twice a day Unchanged tirzepatide (Mounjaro 7.5 mg/ 0.5 mL subcutaneous solution) 7.5 Milligram Subcutaneous Injection Every week rotate injection sites ?? Unchanged Trazodone (traZODone 100 mg oral tablet) 1 tab(s) Oral Daily at Bedtime as needed for Insomnia Medications and Immunizations Administered Medications Given During Visit No medications given during this visit.?? Allergies (NKA means No Known Allergies) NKA Common Emergency Awareness Tips IS IT A STROKE? Act FAST and Check for these signs: FACE Does the face look uneven? ARM Does one arm drift down? SPEECH Does their speech sound strange? TIME Call at any sign of stroke ?? Heart Attack Signs Chest discomfort: Most heart attacks involve discomfort in the center of the chest and lasts more than a few minutes, or goes away and comes back. It can feel like uncomfortable pressure, squeezing, fullness or pain. Discomfort in upper body: Symptoms can include pain or discomfort in one or both arms, back, neck, jaw or stomach. Shortness of breath: With or without discomfort. Other signs: Breaking out in a cold sweat, nausea, or lightheaded. Remember, MINUTES DO MATTER. If you experience any of these heart attack warning signs, call to get immediate medical attention! ?? Smoking can increase your chances of developing chronic health problems and can cause harmful effects to other family members in your house. If you smoke, you are strongly encouraged to quit. Please call [employer] Link at [phone] or 5-708-288[place] ([phone]) or log in to [email or web address] for referrals to smoking cessation programs. ?? The National Suicide Prevention Hotline is available 05/09 if you or someone you know needs to find a reason to keep living. By calling 9-267-377-Techoz (4862) you'll be connected to a skilled, trained counselor at a crisis center in your area. [facility] Health Portal You can view and manage your care through the patient portal or by using a health care qi of your choosing. [employer] is a website that allows you to securely view your medical information including your hospital discharge summary, office visit summaries, medications and follow-up visits. You can also request appointments, renew medications, and request access to your medical information using a health care qi of your choosing, or just ask a question. You can enroll at [email or web address] or register during your next office visit. [facility], in keeping with [facility] guidance, no longer requires face masks for staff, patientsor visitors in most situations. Similiar to time spent indoors at other locations, there is the chance that you were exposed to repiratory viruses during your time with us (such as flu or COVID-19). If you develop symptoms concerning for a viral respiratory infection, please seek testing (and treatment if indicated) from your medical provider or home test kit. ?? Disclaimer: The information provided is of a general nature and is intended to be used in conjunction with the recommendations and advice of your health care practitioner. Every effort has been made to ensure that the information provided is accurate and complete at the time it is provided to you however, as your needs change, or, as new information becomes available, different or additional instructions may be required. ?? If you have questions, please consult with your primary care provider or pharmacist, as appropriate. This information is not intended to serve as substitution for assessment and evaluation by a qualified health care provider. If you do not have a primary care provider, you may find a [facility] provider by calling [facility] Media Link at [phone]. Patient Care team information Care Team Personnel Name: Deyanira Holden Position: [facility] Onco RN Member Role: Primary Care Nurse Name: Linda Harris RN Position: [facility] SN RN Member Role: Primary Care Nurse Name: Janak Greer MD Position: [facility] Physician - Primary Care Member Role: PCP Address: Address: [address] [place] [id number] [place] [address] Name: Tammy Montelongo RN Position: [facility] SN RN Member Role: Primary Care Nurse Care Team Related Persons Name: DANIELA GRAY Address: home [address] [place] [address] Name: JASMINE VILLAR Address: home [address] [place] [address]
--- OUTSIDE RECORDS SUMMARY | 2023-10-30 07:25 | XMS_ITS | Continuity of Care Document ---
Author Organization [facility] ter Address [address] [place] [address]- Care Team Providers Care Grapple Crew Leader Name Role Phone Janak Greer MD Primary Care Physician [phone] Encounter [facility] [place] Date(s): 10/12/19 - 11/21/[address] [address]- [facility] Attending Physician: Janak Greer MD Admitting [...] MESH BARD 6.6X6.6IN 15X15 CM - BARD ([id number]) 1 Bard Unknown GARO:No Information Assigning Authority: FDA
--- OUTSIDE RECORDS SUMMARY | 2023-10-30 07:25 | XMS_ITS | Continuity of Care Document ---
Author Organization [facility] Address [address] [place] [address]- Care Team Providers Care Director Business Name Role Phone Ro Janak RODRIGUEZ Primary Care Physician Encounter [facility] [place] ACCT R [id number] Date(s): 01/10/23 - 02/09/23 [facility] [address] [place] [id number] Allergies, Adverse Reactions, Alerts No Known Allergies Medications atorvastatin 80 mg oral tablet 1 tablet = 80 mg, By Mouth, Daily at bedtime, 0 Refills, Maintenance Start Date: 02/13/12 Status: Ordered carvedilol 6.25 mg oral tablet 6.25 mg, 1, tablet, By Mouth, 2 times a day, # 60 tablet, Refills 5, Tot. Refills 5, Maintenance, 06/24/21 15:16:00 EDT, Route to Pharmacy Electronically, [facility]/pharmacy #[id number], Partial fill upon patient request if the prescription is for a schedule II o... Start Date: 06/24/21 Status: Ordered carvedilol 6.25 mg oral tablet 1, tablet, By Mouth, 2 times a day, # 180 tablet, Refills 3, Tot. Refills 3, Maintenance, 12/27/22 13:18:00 EST, Route to Pharmacy Electronically, [facility]/pharmacy #[id number], 163, cm, 08/23/22 9:04:00 [...] DAY Start Date: 05/11/22 Status: Ordered Evening [place] 4 gelcaps, By Mouth, Daily, 0 Refills, [...] day, # 120 tablet, Refills 0, Maintenance, 05/06/20 3:54:00 EDT Start Date: 06/19/19 Status: Ordered predniSONE 20 mg oral tablet 2 tablet = 40 mg, By Mouth, Daily, # 6 tablet, 0 Refills, Maintenance, 07/26/22 19:09:00 EDT, [facility]/pharmacy #[id number], Partial fill upon patient [...] 0 Refills, Maintenance, 10/14/20 15:35:00 EDT, Tablet, [facility], Partial fill upon patient request [...] Care Team Personnel Name: Deyanira Holden Position: [facility] Onco RN Member Role: Primary Care Nurse Name: Linda Harris RN Position: [facility] SN RN Member Role: Primary Care Nurse Name: Janak Greer MD Position: [facility] Physician - Primary Care Member Role: PCP Address: Address: [address] [place] [address] Name: Tammy Montelongo RN Position: [facility] SN RN Member Role: Primary Care Nurse Care Team Related Persons Name: DANIELA GRAY Address: home [address] [place] [address] Name: JASMINE VILLAR Address: home [address] [place] [address]
--- OUTSIDE RECORDS SUMMARY | 2023-10-30 07:25 | XMS_ITS | Continuity of Care Document ---
Author Organization [facility] Address [address] [place] [address]- Care Team Providers Care Airport Operations Specialist Name Role Phone Janak Greer MD Primary [facility] Physician [id number]23/21 - 03/25/21 [facility] [address] [place] [address]- Attending Physician: Herminio Myles Admitting Physician: AdmtrHerminio Referring Physician: Admtr, Ar8 Allergies, Adverse Reactions, Alerts No Known Allergies Medications atorvastatin 80 mg oral tablet 1 tablet = 80 mg, By Mouth, Daily at bedtime, 0 Refills, Maintenance Start Date: 02/13/12 Status: Ordered Centrum Silver 1 tab, By Mouth, Daily, 0 Refills, Maintenance, 02/14/16 20:44:22 EST Start Date: 02/14/16 Status: Ordered clonazePAM 0.5 mg oral tablet 1 tablet = 0.5 mg, By Mouth, 3 times a day, 0 Refills, Maintenance, 05/13/19 15:05:00 EDT Start Date: 05/13/19 Status: Ordered Evening [place] 4 gelcaps, By Mouth, Daily, 0 Refills, [...] 0 Refills, Maintenance, 10/14/20 15:35:00 EDT, Tablet, [facility], Partial fill upon patient request if [...] MESH BARD 6.6X6.6IN 15X15 CM - BARD ([id number]) 1 Bard Unknown GARO:No Information Assigning Authority: FDA
--- OUTSIDE RECORDS SUMMARY | 2023-10-30 07:25 | XMS_ITS | Continuity of Care Document ---
Author Organization [facility] ter Address [address] [place] [address]- Care Team Providers Care Photovoltaic Installation Technician Name Role Phone Janak Greer MD Primary Care Physician Encounter [facility] Date(s): 05/03/21 - 06/16/[address] [address] Attending Physician: Fracisco Collazo MD Allergies, Adverse Reactions, Alerts No Known Allergies Medications atorvastatin 80 mg oral tablet 1 tablet = 80 mg, By Mouth, Daily at bedtime, 0 Refills, Maintenance Start Date: 02/13/12 Status: Ordered carvedilol 6.25 mg oral tablet 6.25 mg, 1, tablet, By Mouth, 2 times a day, # 60 tablet, Refills 1, Tot. Refills 1, Maintenance, 05/24/21 17:59:00 EDT, Route to Pharmacy Electronically, [facility], Partial fill upon patient request if the prescription is for a schedul... Start Date: 05/24/21 Status: Ordered Centrum Silver 1 tab, By Mouth, Daily, 0 Refills, Maintenance, 02/14/16 20:44:22 EST Start Date: 02/14/16 Status: Ordered clonazePAM 0.5 mg oral tablet 1 tablet = 0.5 mg, By Mouth, 3 times a day, 0 Refills, Maintenance, 05/13/19 15:05:00 EDT Start Date: 05/13/19 Status: Ordered Evening [place] 4 gelcaps, By Mouth, Daily, 0 Refills, [...] Maintenance, 10/06/19 12:06:00 EDT, Tablet Start Date: 8/23/20 Status: Ordered Zofran 4 mg oral tablet 1 tablet = 4 mg, By Mouth, Every 8 hours, PRN as needed for nausea/vomiting, # 21 tablet, 0 Refills, Maintenance, 10/14/20 15:35:00 EDT, Tablet, [facility], Partial fill upon patient [...] Model MESH BARD 6.6X6.6IN 15X15 CM - WILEX ([id number]) 1 Bard Unknown GARO:No Information Assigning Authority: FDA
--- OUTSIDE RECORDS SUMMARY | 2023-10-30 07:25 | XMS_ITS | Continuity of Care Document ---
Author Organization [facility] Address [address] [place] [address]- Care Team Providers Care Neuropathologist Name Role Phone Janak Greer MD Primary Care Physician [phone] Encounter [facility] [place] Date(s): 01/12/22 - 01/19/22 [facility] [address] [place] [address]- Encounter Diagnosis Hypertension(Discharge Diagnosis) - 01/12/22 LVH (left ventricular hypertrophy)(Discharge Diagnosis) - 01/12/22 Palpitation(Discharge Diagnosis) - 01/12/22 Attending Physician: Stewart Patterson MD Referring Physician: [...] 06/24/21 15:16:00 EDT, Route to Pharmacy Electronically, [facility]/pharmacy #[id number], Partial fill upon patient request if the prescription is for a schedule II o... Start Date: 06/24/21 Status: Ordered carvedilol 6.25 mg oral tablet 1, tablet, By Mouth, 2 times a day, # 180 tablet, Refills 3, Maintenance, 12/19/21 8:35:00 EST, Route to Pharmacy Electronically, [id number], 162.56, cm, 06/16/21 8:16:00 EDT, Height, 116.8, kg,10/14/20 13:50:00 EDT, Dry Weight Start Date: 12/19/21 Status: Ordered Centrum Silver 1 tab, By Mouth, Daily, 0 Refills, Maintenance, 02/14/16 20:44:22 EST Start Date: 02/14/16 Status: Ordered clonazePAM 0.5 mg oral tablet 1 tablet = 0.5 mg, By Mouth, 3 times a day, 0 Refills, Maintenance, 05/13/19 15:05:00 EDT Start Date: 05/13/19 Status: Ordered Evening [place] 4 gelcaps, By Mouth, Daily, 0 Refills, [...] 0 Refills, Maintenance, 10/14/20 15:35:00 EDT, Tablet, [facility], Partial fill upon patient request if the prescription is for a schedule II opioi... 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 LVH (left ventricular hypertrophy) Confirmed Active Severe obesity Confirmed Active Diagnosis Diagnosis Type Effective Dates Health Status Clinical Service Informant Hypertension Discharge Diagnosis 01/12/22 LVH (left ventricular hypertrophy) Discharge Diagnosis 01/12/22 Palpitation Discharge Diagnosis 01/12/22 Vital Signs Most recent to oldest [Reference Range]: 1 Height 162.56 cm (01/11/22 12:09 PM) Social History Social History Type Response [...] Outpatient Note * Leonardo RODRIGUEZ, Stewart Avila: PERFORM, MODIFY Event Display: Cardiology Note Office Authored Date: [id number] Patient: ??CHEVY DEAN ? Age:??61 Years?Sex:??Female?:??1960?? Telemedicine Service was provided using telemedicine Patient Hx Cardiology Shared Clinical Summary 1.?? Hypertension 2. ??Dyslipidemia 3. ??SHAWN on CPAP 4.?? Obesity 5.?? History of abnormal stress test in 2008. ??Subsequent cardiac catheterization showed only minimal luminal irregularities and no obstructive??CAD. 6.?? History of DVT, PE??on warfarin 7.?? Left ventricular hypertrophy Reason For Visit L VENTRICLE HYPOTROPHY [phone] History of Present Illness/ Interval History Ms. Dean was called today for a follow-up telemedicine visit. ?? Her last visit with us??was earlier this year as part of a preoperative visit prior to ankle surgery.?She did have an echocardiogram and stress test??done prior to the surgery. ??Also had been started??on??beta-ankush for??hypertension. ?? She tells me that the surgery went well without cardiovascular complications and she also had a knee surgery done as well.?? Since that time,??she has lost close to 30 pounds??mostly through diet. ??She is on some weight loss supplements as well which has been prescribed from a physician, she does not have the list available to me but tells me that she has had a checked with other providers and it is thought to be safe. ?? She still does have some mild exertional dyspnea when going up and down stairs. ??No orthopnea or edema. ??She is following with a irrigation equipment installer as well.?? She has remained on carvedilol??for her blood pressure, which has been well controlled. ??She was actually seen in office by her irrigation equipment installer yesterday and was 124/70. ?? Only concern today is some palpitations which occurred over the past several months. ??She describes this as a sensation of her heart fluttering which radiates up to her neck. ??It lasts??anywherefrom 5 to 15 minutes. ??It may occur several times a week. ??There is no obvious triggering??factorto her.?? This does cause some concern for her, and she reports that she would like to get it checked before proceeding with some other ankle surgeries which she may need to in the future. Review of Systems Pertinent positives as per the HPI.?? Physical Exam Exam deferred ?? Assessment/Plan 1.??Hypertension 2.??LVH (left ventricular hypertrophy) 3.??Palpitation ?? Patient's main concern at our visit today was that of palpitations. ??Not clear that these are related to any concerning arrhythmia, but??given her??known cardiac history would be reasonable to dofurther evaluation. ??I can set her up with a Zio patch monitor??to assess for any arrhythmia.?? Inthe meantime I have asked her simply to remain on her carvedilol dose as is. ??She will also bring i n??a list of her supplements and drop that off for me to review. ??I would want a make sure there is not any stimulant that is driving??the symptoms. ?? Primary cardiovascular issue has been hypertension which has been better controlled since initiation of carvedilol earlier in the year. ??She will remain on this.?? She also will benefit from ongoingweight loss which she has been working hard on. ?? If the above testing is unremarkable, plan will be for follow-up visit in about 6 months time for an RENEA. ?? Plan: 1. ??Referral??for Zio patch??AT??7 days 2. ??Ongoing diet and lifestyle modification 3. ??Continue carvedilol 4. ??Follow-up in 6 months with RENEA ?? The above note was prepared with the help of voice recognition software. ??Please excuse any grammatical or spelling errors that may have occurred. ?? Stewart Patterson MD [address] [facility], [address] [place] [address] [place] [address], [address], [place] [address] [phone] ([id number]) Telehealth Time of direct telehealth encounter/medical discussion: 6 minutes The patient was located in a home setting in the [facility] during this Phone electronic televisit, and gave consent to conduct the visit via telehealth. Provider was located in a [facility] office. Persons other than patient involved in televisit included: none Allergies NKA Home Medications atorvastatin 80 mg oral tablet, 80 mg= 1 tablet, By Mouth, Daily at bedtime carvedilol 6.25 mg oral tablet, 6.25 mg= 1 tablet, By Mouth, 2 times a day, 5 refills carvedilol 6.25 mg oral tablet, 1 tablet, By Mouth, 2 times a day Centrum Silver, 1 tab, By Mouth, Daily,?Not taking clonazePAM 0.5 mg oral tablet, 0.5 mg= 1 tablet, By Mouth, 3 times a day Evening [place], 4 gelcaps, By Mouth, Daily,?Not taking famotidine 20 mg oral tablet, 20 mg= 1 tablet, By Mouth, Daily at bedtime ferrous sulfate 325 mg oral tablet, 325 mg= 1 tablet, By Mouth, Daily furosemide 40 mg oral tablet, TAKE 1 TABLET BY MOUTH EVERY DAY,?Not taking Humalog 100 u/ml subcutaneous injection, Subcutaneous Infusion levothyroxine 0.025 mg oral tablet, 25 mcg= 1 tablet, By Mouth, Daily Lexapro 20 mg oral tablet, 20 mg= 1 tablet, By Mouth, Daily Omeprazole, 20 mg, By Mouth, Daily OXcarbazepine 300 mg oral tablet, 600 mg= 2 tablet, By Mouth, 2 times a day traZODone 100 mg oral tablet, 100 mg= 1 tablet, By Mouth, Daily at bedtime, PRN Vitamin D3 1000 intl units oral tablet, 1000 International_Units= 1 tablet, By Mouth, Daily warfarin 10 mg oral tablet, See Instructions, please take 15 mg and 20mg on alternate days Zofran 4 mg oral tablet, 4 mg= 1 tablet, By Mouth, Every 8 hours, PRN,?Not taking Lab Results Cardiology Labs WBC: 8.1 k/mm3 (09/30/21) RBC:??3.83 m/mm3??Low (09/30/21) Hgb:??11.1 Gm/dL??Low (09/30/21) Hct:??33.3 %??Low (09/30/21) MCV: 86.9 femtoliters (09/30/21) MCH: 29 pg (09/30/21) MCHC: 33.3 g/dL (09/30/21) Platelet Count: 313 k/mm3 (09/30/21) RDW-SD:??48.8 femtoliters??High (09/30/21) Nucleated RBC (Automated): 0 #/100 WBC'S (09/30/21) Abs. Neut: 5.1 k/mm3 (09/30/21) Abs. Lymph: 2.1 k/mm3 (09/30/21) Abs. Barren: 0.5 k/mm3 (09/30/21) Abs. Eo: 0.3 k/mm3 (09/30/21) Abs. Baso: 0.1 k/mm3 (09/30/21) Neut %: 62.7 % (09/30/21) Barren %: 6.1 % (09/30/21) Eos %: 4.2 % (09/30/21) Baso %: 0.7 % (09/30/21) Imm Gran: 0.5 % (09/30/21) Abs. Imm Gran: 0 k/mm3 (09/30/21) INR:??2.5??High (05/05/21) Protime (PT):??24.9 seconds??High (05/05/21) Sodium:??132 mmol/L??Low (09/30/21) Potassium: 4 mmol/L (09/30/21) Chloride:??93 mmol/L??Low (09/30/21) Bicarbonate Level: 28 mmol/L (09/30/21) Glucose Level:??116 mg/dL??High (09/30/21) Hemoglobin A1C (Monitoring):??6.4 %??High (09/14/21) BUN: 17 mg/dL (09/30/21) Creatinine-Blood:??1.5 mg/dL??High (09/30/21) Calcium: 9.2 mg/dL (09/30/21) Protein, Total: 6.6 Gm/dL (09/14/21) Albumin: 4.3 Gm/dL (09/14/21) Alkaline Phosphatase:??135 units/L??High (09/14/21) AST (SGOT): 9 units/L (09/14/21) ALT (SGPT): 19 units/L (09/14/21) Bilirubin, Total: 0.2 mg/dL (09/14/21) Troponin T Quant: <0.01 (05/13/21) Cholesterol: 178 mg/dL (09/14/21) Triglycerides: 124 mg/dL (09/14/21) HDL Cholesterol: 76 mg/dL (09/14/21) LDL Cholesterol: 77 mg/dL (09/14/21) Non HDL Cholesterol: 102 mg/dL (09/14/21) TSH: 2.71 uIU/mL (09/14/21) Free T4: 0.82 ng/dL (09/14/21) Diagnostic Impression ECG ECG 12-Lead ?? 07:16:35 Please click on pdf link to open report ?? Signed By: Avinash Dietrich DO Stress Test NM Myocard Perf SPECT Multi ?? 07:55:00 Summary 1. Myocardial perfusion imaging is normal without any fixed or reversible perfusion defect after Regadenoson infusion. 2. LV function is normal with an E.F. of 85% at rest and 86 % after IV administration of Regadenoson with normal wall motion and thickening. 3. EKG portion of the stress test is reported separately. ?? Signatures _ _ ?? Signed By: Lakshmi Shrestha MD Echo Echocardiogram - Complete ?? 07:36:04 [...] Mayer MD Problem List/Past Medical History Ongoing CKD (chronic kidney disease) Hypertension Instability of left ankle joint LVH (left ventricular hypertrophy) Severe obesity Historical No qualifying data Procedure/Surgical History No qualifying data available. Social History Alcohol Use: Never., 02/15/2016 Substance Abuse Use: Never., 02/15/2016 Tobacco Use: Former smoker, quit more than 30 days ago., 02/23/2021 Family History No family history recorded. Patient Care team information Care Team Personnel Name: Deyanira Holden Position: [facility] Onco RN Member Role: Primary Care Nurse Name: Linda Harris RN Position: [facility] SN RN Member Role: Primary Care Nurse Name: Janak Greer MD Position: [facility] Physician (General Medicine) Member Role: PCP Address: Address: [address] [place] [id number] [place] [address] Name: Tammy Montelongo RN Position: [facility] SN RN Member Role: Primary Care Nurse Care Team Related Persons Name: DANIELA GRAY Address: home [address] [place] [address] Name: JASMINE VILLAR Address: home [address] [place] [address]
--- OUTSIDE RECORDS SUMMARY | 2023-10-30 07:25 | XMS_ITS | Continuity of Care Document ---
Author Organization [facility] Address [address] [place] [address]- Care Team Providers Care Mainframe Developer Name Role Phone Ro Janak RODRIGUEZ Primary Care Physician En[place] [facility] [place] [place] [id number] Date(s): 08/11/23 - 09/10/23 [facility] [address] [place] [id number] Allergies, Adverse Reactions, Alerts No Known Allergies [...] 02/17/23 8:28:00 EST, Route to Pharmacy Electronically, [facility]/pharmacy #[id number], Partial fill upon patient request if the prescr... Start Date: 02/17/23 Stop Date: 02/12/24 Status: Ordered carvedilol 6.25 mg oral tablet 1, tablet, By Mouth, 2 times a day, # 180 tablet, Refills 3, Tot. Refills 3, Maintenance, 12/27/22 13:18:00 EST, Route to Pharmacy Electronically, [facility]/pharmacy #[id number], 163, cm, 08/23/22 9:04:00 [...] DAY Start Date: 08/01/23 Status: Ordered Mounjaro 10 mg/0.5 mL subcutaneous solution = 10 mg, Subcutaneous Injection, Every week, rotate injection sites, # 4 each, 3 Refills, Maintenance, 08/31/23 10:34:00 EDT, Solution, [facility]/pharmacy #[id number], Partial fill upon patient request if the prescription is for a schedule II opioid drug., 163, c... Start Date: 08/31/23 Status: Ordered Myrbetriq 50 mg oral tablet, [...] Care Team Personnel Name: Deyanira Holden Position: [facility] Onco RN Member Role: Primary Care Nurse Name: Linda Harris RN Position: [facility] SN RN Member Role: Primary Care Nurse Name: Janak Greer MD Position: [facility] Physician - Primary Care Member Role: PCP Address: Address: [address] [place] [address] Name: Tammy Montelongo RN Position: [facility] SN RN Member Role: Primary Care Nurse Care Team Related Persons Name: DANIELA GRAY Address: home [address] [place] [address] Name: JASMINE VILLAR Address: home [address] [place] [id number]
--- OUTSIDE RECORDS SUMMARY | 2023-10-30 07:25 | XMS_ITS | Continuity of Care Document ---
Author Organization [facility] ter Address [address] [place] [address]- Care Team Providers Care Senior Oracle Pl Sql Developer Name Role Phone Janak Greer MD Primary Care Physician [phone] Encounter [facility] Date(s): 09/08/19 - 10/18/[address] [address]- [facility] Attending Physician: Janak Greer MD Admitting [...] MESH BARD 6.6X6.6IN 15X15 CM - BARD ([id number]) 1 Bard Unknown GARO:No Information Assigning Authority: FDA
--- OUTSIDE RECORDS SUMMARY | 2023-10-30 07:25 | XMS_ITS | Continuity of Care Document ---
Author Organization [facility] Address [address] [place] [address]- Care Team Providers Care Power Regulator Name Role Phone Ro Janak RODRIGUEZ Primary Care Physician Encounter [facility] ACCT R [id number] Date(s): 05/28/23 - 06/27/23 [facility] [address] [place] [address] Allergies, Adverse Reactions, Alerts No [...] 02/17/23 8:28:00 EST, Route to Pharmacy Electronically, [facility]/pharmacy #[id number], Partial fill upon patient request if the prescr... Start Date: 02/17/23 Stop Date: 02/12/24 Status: Ordered carvedilol 6.25 mg oral tablet 1, tablet, By Mouth, 2 times a day, # 180 tablet, Refills 3, Tot. Refills 3, Maintenance, 12/27/22 13:18:00 EST, Route to Pharmacy Electronically, [facility]/pharmacy #[id number], 163, cm, 08/23/22 9:04:00 EDT, Height, 120.5, kg, 07/26/22 15:18:00 EDT, Dry Weight Start Date: 12/27/22 Status: Ordered Centrum Silver 1 tab, By Mouth, Daily, 0 Refills, Maintenance, 02/14/16 20:44:22 EST Start Date: 1/1/17 Status: Ordered clonazePAM 0.5 mg oral tablet 1 tablet = 0.5 mg, By Mouth, 2 times a day, 0 Refills, Maintenance, 05/13/19 15:05:00 EDT Start Date: 05/13/19 Status: Ordered dulaglutide 1.5 mg/0.5 mL subcutaneous solution 0.5 mL = 1.5 mg, Subcutaneous Injection, Every week, rotate injection sites, # 2 mL, 2 Refills, Maintenance, 06/09/23 7:01:00 EDT, Solution, [facility]/pharmacy #[id number], Replacing Mounjaro 7.5 mg as it is unavailable, 164, cm, 05/22/23 15:09:00 EDT, Height, 12... Start Date: 06/09/23 Status: Ordered Eliquis 5 mg oral tablet [...] DAY Start Date: 05/11/22 Status: Ordered Evening [place] 4 gelcaps, By Mouth, Daily, 0 Refills, [...] subcutaneous injection Subcutaneous Infusion, 0 Refills, Maintenance, 08/23/20 0:09:00 EDT Start Date: 10/06/19 Status: Ordered [...] mg, Subcutaneous Injection, Every week, rotate injection sites -use mounjaro 5mg while 7.5mg lynn back order, # 4 each, 4 Refills, Maintenance, 05/29/23 8:27:00 EDT, Solution, [facility]/pharmacy #[id number], Partial fill upon patient request if the prescrip... Start Date: 05/29/23 Status: Ordered Mounjaro 7.5 mg/0.5 mL subcutaneous solution = 7.5 mg, Subcutaneous Injection, Every week, rotate injection sites, # 4 each, 3 Refills, Maintenance, 05/28/23 8:11:00 EDT, Solution, [id number], 164, cm, 05/22/23 15:09:00 EDT, Height, 120.9, kg, 03/31/23 19:36:00 EST, Dry Weight Start Date: 05/28/23 Status: Ordered Omeprazole = 20 mg, By [...] tablet, 0 Refills, Maintenance, 07/26/22 19:09:00 EDT, [id number], Partial fill upon patient request [...] 0 Refills, Maintenance, 10/14/20 15:35:00 EDT, Tablet, [facility], Partial fill upon patient request [...] Care team information Care Team Personnel Name: Navin Deyanira Position: [facility] Onco RN Member Role: Primary Care Nurse Name: Linda Harris RN Position: [facility] SN RN Member Role: Primary Care Nurse Name: Janak Greer MD Position: [facility] Physician - Primary Care Member Role: PCP Address: Address: [address] [place] [address] Name: Tammy Montelongo RN Position: [facility] SN RN Member Role: Primary Care Nurse Care Team Related Persons Name: JADA GRAYSOLANGEEFREM Address: home [address] [place] [address] Name: JASMINE VILLAR Address: home [address] [place] [address]
--- OUTSIDE RECORDS SUMMARY | 2023-10-30 07:25 | XMS_ITS | Continuity of Care Document ---
Author Organization [facility] Address [address] [place] [address]- Care Team Providers Care Geological E Logger Name Role Phone Janak Greer MD Primary Care Physician Encounter [facility] Date(s): 05/19/20 - 06/18/20 [facility] [address] [place] [id number] Allergies, Adverse Reactions, Alerts Substance Reaction Severity [...] EDT Start Date: 05/13/19 Status: Ordered Evening [place] 0 Refills, Maintenance, 05/14/20 10:03:00 EDT, Partial [...] Model MESH BARD 6.6X6.6IN 15X15 CM - Plain Vanilla ([id number]) 1 Bard Unknown GARO:No Information Assigning Authority: FDA
--- OUTSIDE RECORDS SUMMARY | 2023-10-30 07:25 | XMS_ITS | Continuity of Care Document ---
Author Organization [facility] Address [address] [place] [address]- Care Team Providers Care Character Actress Name Role Phone Ro Janak RODRIGUEZ Primary Care Physician Encounter [facility] [place] ACCT R [id number] Date(s): 08/01/23 - 08/31/23 [facility] [address] [place], [place] [address] Attending Physician: Herminio Myles Admitting Physician: AdmtrHerminio [...] 02/17/23 8:28:00 EST, Route to Pharmacy Electronically, [facility]/pharmacy #[id number], Partial fill upon patient request if the prescr... Start Date: 02/17/23 Stop Date: 02/12/24 Status: Ordered carvedilol 6.25 mg oral tablet 1, tablet, By Mouth, 2 times a day, # 180 tablet, Refills 3, Tot. Refills 3, Maintenance, 12/27/22 13:18:00 EST, Route to Pharmacy Electronically, [facility]/pharmacy #[id number], 163, cm, 08/23/22 9:04:00 EDT, Height, [...] 3 Refills, Maintenance, 08/31/23 10:34:00 EDT, Solution, [facility]/pharmacy #1130, Partial fill upon patient request if [...] Care Team Personnel Name: Deyanira Holden Position: [facility] Onco RN Member Role: Primary Care Nurse Name: Linda Harris RN Position: [facility] SN RN Member Role: Primary Care Nurse Name: Janak Greer MD Position: [facility] Physician - Primary Care Member Role: PCP Address: Address: [address] [place] [address] Name: Tammy Montelongo RN Position: [facility] SN RN Member Role: Primary Care Nurse Care Team Related Persons Name: DANIELA GRAY Address: home [address] [place] [address] Name: JASMINE VILLAR Address: home [address] [place] [place] [id number]
--- OUTSIDE RECORDS SUMMARY | 2023-10-30 07:25 | XMS_ITS | Continuity of Care Document ---
Author Organization [facility] Address [address] [place] [address]- Care Team Providers Care Powder Loader Name Role Phone Ro Janak RODRIGUEZ Primary Care Physician [place] [facility] 06/08/21 - 07/08/21 [facility] [address] [place] [address]- Attending Physician: Herminio Myles Admitting Physician: Herminio Myles Referring Physician: [id number] Allergies, Adverse Reactions, Alerts No Known Allergies Medications atorvastatin 80 mg oral tablet 1 tablet = 80 mg, By Mouth, Daily at bedtime, 0 Refills, Maintenance Start Date: 02/13/12 Status: Ordered carvedilol 6.25 mg oral tablet 6.25 mg, 1, tablet, By Mouth, 2 times a day, # 60 tablet, Refills 5, Tot. Refills 5, Maintenance, 06/24/21 15:16:00 EDT, Route to Pharmacy Electronically, [facility]/pharmacy #[id number], Partial fill upon patient request if the [...] EDT Start Date: 05/13/19 Status: Ordered Evening [place] 4 gelcaps, By Mouth, Daily, 0 Refills, [...] 0 Refills, Maintenance, 10/14/20 15:35:00 EDT, Tablet, [facility], Partial fill upon [...] Model MESH BARD 6.6X6.6IN 15X15 CM - ffk environment ([id number]) 1 Bard Unknown GARO:No Information Assigning Authority: FDA
--- OUTSIDE RECORDS SUMMARY | 2023-10-30 07:25 | XMS_ITS | Continuity of Care Document ---
Author Organization [facility] Address [address] [place] [address]- Care Team Providers Care Freight Trucker Name Role Phone Janak Greer MD Primary Care Physician Encounter [id number] Date(s): 08/02/21 - 09/24/21 [facility] [address] [place], [place] [address] Attending Physician: Janak Greer MD Admitting Physician: [...] 06/24/21 15:16:00 EDT, Route to Pharmacy Electronically, [facility]/pharmacy #[id number], Partial fill upon patient [...] EDT Start Date: 05/13/19 Status: Ordered Evening [place] 4 gelcaps, By Mouth, Daily, 0 Refills, [...] 0 Refills, Maintenance, 10/14/20 15:35:00 EDT, Tablet, [facility], Partial fill upon patient [...] MESH BARD 6.6X6.6IN 15X15 CM - BARD ([id number]) 1 Bard Unknown GARO:No Information Assigning Authority: FDA
--- OUTSIDE RECORDS SUMMARY | 2023-10-30 07:25 | XMS_ITS | Continuity of Care Document ---
Author Organization [facility] ter Address [address] [place] [address]- Care Team Providers Care Supplier Quality Engineer Name Role Phone Janak Greer MD Primary Care Physician [phone] [place] [facility] [place]/14/20 - 09/19/[address] [address] Attending Physician: Leah Guerra Admitting Physician: Leah Guerra Referring Physician: Leah Guerra Allergies, Adverse Reactions, [...] EDT Start Date: 05/13/19 Status: Ordered Evening [place] 0 Refills, Maintenance, 05/14/20 10:03:00 EDT, Partial [...] MESH BARD 6.6X6.6IN 15X15 CM - BARD ([id number]) 1 Bard Unknown GARO:No Information Assigning Authority: FDA
--- OUTSIDE RECORDS SUMMARY | 2023-10-30 07:25 | XMS_ITS | Continuity of Care Document ---
Author Organization [facility] Address [address] [place] [address]- Care Team Providers Care Media/Instructional Designer Name Role Phone Janak Greer MD Primary Care Physician Encounter [facility] ACCT R [id number] Date(s): 11/30/22 - 02/23/23 [facility] [address] [place] [address] Attending Physician: Janak Greer MD Admitting [...] 02/17/23 8:28:00 EST, Route to Pharmacy Electronically, [facility]/pharmacy #[id number], Partial fill upon patient request if the prescr... Start Date: 02/17/23 Stop Date: 02/12/24 Status: Ordered carvedilol 6.25 mg oral tablet 1, tablet, By Mouth, 2 times a day, # 180 tablet, Refills 3, Tot. Refills 3, Maintenance, 12/27/22 13:18:00 EST, Route to Pharmacy Electronically, [facility]/pharmacy #1130, 163, cm, 08/23/22 9:04:00 EDT, [...] DAY Start Date: 05/11/22 Status: Ordered Evening [place] 4 gelcaps, By Mouth, Daily, 0 Refills, [...] Tablet Start Date: 06/19/19 Status: Ordered Mounjaro 2.5 mg/0.5 mL subcutaneous solution = 2.5 mg, Subcutaneous Injection, Every week, rotate injection sites -stop Victoza, call the officein 4 weeks if tolerated, # 4 each, 1 Refills, Maintenance, 02/20/23 10:40:00 EST, Solution, [facility]/pharmacy #1130, Partial fill upon patient request if t... Start Date: 02/20/23 Status: Ordered Omeprazole = 20 mg, By [...] tablet, 0 Refills, Maintenance, 07/26/22 19:09:00 EDT, [facility]/pharmacy #1130, Partial fill upon patient request [...] 0 Refills, Maintenance, 10/14/20 15:35:00 EDT, Tablet, [facility], Partial fill upon patient [...] Care Team Personnel Name: Deyanira Holden Position: [facility] Onco RN Member Role: Primary Care Nurse Name: Linda Harris RN Position: [facility] SN RN Member Role: Primary Care Nurse Name: Janak Greer MD Position: [facility] Physician - Primary Care Member Role: PCP Address: Address: [address] [place] [id number] [place] [address] Name: Tammy Montelongo RN Position: [facility] SN RN Member Role: Primary Care Nurse Care Team Related Persons Name: ISAAC JADASJ Address: home [address] [place] [address] Name: JASMINE VILLAR Address: home [address] [place] [address]
--- OUTSIDE RECORDS SUMMARY | 2023-10-30 07:25 | XMS_ITS | Continuity of Care Document ---
Author Organization [facility] ter Address [address] [place] [address]- Care Team Providers Care Tag And Label Cutter Name Role Phone Ro Janak RODRIGUEZ Primary Care Physician [place] [facility] Date(s[place] 05/28/22 - 07/07/[address] [address] Attending Physician: Esperanza CARRERA, Mari Admitting Physician: Esperanza CARRERA, Mari Referring Physician: Esperanza HEAVY EQUIPMENT FIELD MECHANIC, Mari Allergies, Adverse Reactions, Alerts No Known Allergies Medications atorvastatin 80 mg oral tablet 1 tablet = 80 mg, By Mouth, Daily at bedtime, 0 Refills, Maintenance Start Date: 02/13/12 Status: Ordered carvedilol 6.25 mg oral tablet 6.25 mg, 1, tablet, By Mouth, 2 times a day, # 60 tablet, Refills 5, Tot. Refills 5, Maintenance, 06/24/21 15:16:00 EDT, Route to Pharmacy Electronically, [facility]/pharmacy #1130, Partial fill upon patient request if the prescription is for a schedule II o... Start Date: 06/24/21 Status: Ordered carvedilol 6.25 mg oral tablet 1, tablet, By Mouth, 2 times a day, # 180 tablet, Refills 3, Maintenance, 12/19/21 8:35:00 EST, Route to Pharmacy Electronically, [facility] STORE 88833, 162.56, cm, 06/16/21 8:16:00 EDT, Height, 116.8, [...] DAY Start Date: 05/11/22 Status: Ordered Evening [place] 4 gelcaps, By Mouth, Daily, 0 Refills, [...] 0 Refills, Maintenance, 10/14/20 15:35:00 EDT, Tablet, [facility], Partial fill upon patient [...] Care Team Personnel Name: Deyanira Holden Position: [facility] Onco RN Member Role: Primary Care Nurse Name: Linda Harris RN Position: [facility] SN RN Member Role: Primary Care Nurse Name: Janak Greer MD Position: [facility] Physician (General Medicine) Member Role: PCP Address: Address: [address] [place] [address] Name: Tammy Montelongo RN Position: [facility] SN RN Member Role: Primary Care Nurse Care Team Related Persons Name: DANIELA GRAY Address: home [address] [place] [address] Name: JASMINE VILLAR Address: home [address] [place] [address]
--- OUTSIDE RECORDS SUMMARY | 2023-10-30 07:26 | XMS_ITS | Continuity of Care Document ---
Author Organization [facility] ter Address [address] [place] [address]- Care Team Providers Care Credit Rating Inspector Name Role Phone Ro Janak RODRIGUEZ Primary Care Physician [facility] [id number] Date(s): 12/19/22 - 01/18/[address] [address]- Attending Physician: Herminio Myles Admitting Physician: AdmtrHerminio Referring Physician: Admtr Ar8 Allergies, Adverse Reactions, Alerts No Known Allergies Medications atorvastatin 80 mg oral tablet 1 tablet = 80 mg, By Mouth, Daily at bedtime, 0 Refills, Maintenance Start Date: 02/13/12 Status: Ordered carvedilol 6.25 mg oral tablet 6.25 mg, 1, tablet, By Mouth, 2 times a day, # 60 tablet, Refills 5, Tot. Refills 5, Maintenance, 06/24/21 15:16:00 EDT, Route to Pharmacy Electronically, [facility] DAY Start Date: 05/11/22 Status: Ordered Evening [place] 4 gelcaps, By Mouth, Daily, 0 Refills, [...] tablet, 0 Refills, Maintenance, 07/26/22 19:09:00 EDT, [facility]/pharmacy #1130, Partial fill [...] 0 Refills, Maintenance, 10/14/20 15:35:00 EDT, Tablet, [facility], Partial fill upon patient request [...] Care Team Personnel Name: Deyanira Holden Position: [facility] Onco RN Member Role: Primary Care Nurse Name: Linda Harris RN Position: [facility] SN RN Member Role: Primary Care Nurse Name: Janak Greer MD Position: [facility] Physician - Primary Care Member Role: PCP Address: Address: [address] [place] [address] Name: Tammy Montelongo RN Position: [facility] SN RN Member Role: Primary Care Nurse Care Team Related Persons Name: ISAAC JADASJ Address: home [address] [place] [address] Name: JASMINE VILLAR Address: home [address] [place] [address]
--- OUTSIDE RECORDS SUMMARY | 2023-10-30 07:26 | XMS_ITS | Continuity of Care Document ---
Author Organization [facility] Address [address] [place] [address]- Care Team Providers Care Per Diem Interpreter Name Role Phone Ro Janak RODRIGUEZ Primary Care Physician [phone] Encounter [facility] ACCT R [id number] Date(s): 06/05/23 - 07/05/23 [facility] [address] [place] [address] Allergies, Adverse Reactions, Alerts No Known Allergies [...] 02/17/23 8:28:00 EST, Route to Pharmacy Electronically, [facility]/pharmacy #1130, Partial fill upon patient request if the prescr... Start Date: 02/17/23 Stop Date: 02/12/24 Status: Ordered carvedilol 6.25 mg oral tablet 1, tablet, By Mouth, 2 times a day, # 180 tablet, Refills 3, Tot. Refills 3, Maintenance, 12/27/22 13:18:00 EST, Route to Pharmacy Electronically, [facility]/pharmacy #1130, 163, cm, 08/23/22 9:04:00 EDT, Height, [...] DAY Start Date: 05/11/22 Status: Ordered Evening [place] 4 gelcaps, By Mouth, Daily, 0 Refills, [...] Tablet Start Date: 06/19/19 Status: Ordered Mounjaro 7.5 mg/0.5 mL subcutaneous solution = 7.5 mg, Subcutaneous Injection, Every week, rotate injection sites, # 4 each, 3 Refills, Maintenance, 07/05/23 7:50:00 EDT, Solution, [facility]/pharmacy #1130, 164, cm, 05/22/23 15:09:00 EDT, Height, 120.9, kg, 03/31/23 19:36:00 EST, Dry Weight Start Date: 07/05/23 Status: Ordered Omeprazole = 20 mg, By [...] tablet, 0 Refills, Maintenance, 07/26/22 19:09:00 EDT, [facility]/pharmacy #1130, Partial fill upon patient request if [...] 0 Refills, Maintenance, 10/14/20 15:35:00 EDT, Tablet, [facility], Partial fill upon patient [...] Care Team Personnel Name: Deyanira Holden Position: [facility] Onco RN Member Role: Primary Care Nurse Name: Linda Harris RN Position: [facility] SN RN Member Role: Primary Care Nurse Name: Janak Greer MD Position: [facility] Physician - Primary Care Member Role: PCP Address: Address: [address] [place] [address] Name: Tammy Montelongo RN Position: [facility] SN RN Member Role: Primary Care Nurse Care Team Related Persons Name: DANIELA GRAY Address: home [address] [place] [address] Name: JASMINE VILLAR Address: home [address] [place] [address]
--- OUTSIDE RECORDS SUMMARY | 2023-10-30 07:26 | XMS_ITS | Continuity of Care Document ---
Author Organization [facility] ter Address [address] [place] [address]- Care Team Providers Care Fibre Composite Technician Name Role Phone Janak Greer MD Primary Care Physician [phone] [place] [facility] Date(s): 01/11/22 - 04/08/[address] [address] Attending Physician: Blanca Palma MD Admitting Physician: Blanca Palma MD Allergies, Adverse Reactions, Alerts No Known Allergies Medications atorvastatin 80 mg oral tablet 1 tablet = 80 mg, By Mouth, Daily at bedtime, 0 Refills, Maintenance Start Date: 02/13/12 Status: Ordered carvedilol 6.25 mg oral tablet 6.25 mg, 1, tablet, By Mouth, 2 times a day, # 60 tablet, Refills 5, Tot. Refills 5, Maintenance, 06/24/21 15:16:00 EDT, Route to Pharmacy Electronically, [facility]/pharmacy #1130, Partial fill upon patient request if the prescription is for a schedule II o... Start Date: 06/24/21 Status: Ordered carvedilol 6.25 mg oral tablet 1, tablet, By Mouth, 2 times a day, # 180 tablet, Refills 3, Maintenance, 12/19/21 8:35:00 EST, Route to Pharmacy Electronically, [facility] 549[facility], 162.56, cm, 06/16/21 8:16:00 EDT, Height, 116.8, kg,10/14/20 13:50:00 EDT, Dry Weight Start Date: 12/19/21 Status: Ordered Centrum Silver 1 tab, By Mouth, Daily, 0 Refills, Maintenance, 02/14/16 20:44:22 EST Start Date: 02/14/16 Status: Ordered clonazePAM 0.5 mg oral tablet 1 tablet = 0.5 mg, By Mouth, 3 times a day, 0 Refills, Maintenance, 05/13/19 15:05:00 EDT Start Date: 05/13/19 Status: Ordered Evening [place] 4 gelcaps, By Mouth, Daily, 0 Refills, [...] 0 Refills, Maintenance, 10/14/20 15:35:00 EDT, Tablet, [facility], Partial fill upon [...] Unknown 12/10/21 Unknown Unknown Active Un known History and physical note * Event Display: History and Physical Hospital Authored Date: Patient Care team information Care Team Personnel Name: Deyanira Holden Position: [facility] Onco RN Member Role: Primary Care Nurse Name: Linda Harris RN Position: [facility] SN RN Member Role: Primary Care Nurse Name: Janak Greer MD Position: [facility] Physician (General Medicine) Member Role: PCP Address: Address: [address] [place] [address]- Name: Tammy Montelongo RN Position: S RN Member Role: Primary Care Nurse Care Team Related Persons Name: ISAAC JADASJ Address: home [address] [place] [address] Name: JASMINE VILLAR Address: home [address] [place] [address]
--- OUTSIDE RECORDS SUMMARY | 2023-10-30 07:26 | XMS_ITS | Continuity of Care Document ---
Author Organization [facility] Address [address] [place] [address]- Care Team Providers Care Dean Of Boys Name Role Phone Ro Janak RODRIGUEZ Primary Care Physician [facility] [place] [place] [id number] Date(s): 09/06/23 - 10/06/23 [facility] [address] [place] [address] Allergies, Adverse Reactions, Alerts No Known [...] 02/17/23 8:28:00 EST, Route to Pharmacy Electronically, [facility]/pharmacy #1130, Partial fill upon patient request if the prescr... Start Date: 02/17/23 Stop Date: 02/12/24 Status: Ordered carvedilol 6.25 mg oral tablet 1, tablet, By Mouth, 2 times a day, # 180 tablet, Refills 3, Tot. Refills 3, Maintenance, 12/27/22 13:18:00 EST, Route to Pharmacy Electronically, [facility]/pharmacy #1130, 163, cm, 08/23/22 9:04:00 EDT, Height, [...] opioid drug. Start Date: 08/01/23 Status: Ordered Lantus 100 u/ml subcutaneous solution See Instructions, To administer 34 units every night in the event of pump malfunction. E11.9, # 10 mL, 3 Refills, Maintenance, 09/28/23 18:45:00 EDT, [facility]/pharmacy #1130, Partial fill upon patient request if the prescription is for a schedule II opioi... Start Date: 09/28/23 Status: Ordered levothyroxine 0.025 mg oral tablet [...] 3 Refills, Maintenance, 08/31/23 10:34:00 EDT, Solution, [facility]/pharmacy #1130, Partial fill upon patient request if [...] Primary Care Member Role: PCP Address: Address: [address] [place] [address] Name: Tammy Montelongo RN Position: [facility] SN RN Member Role: Primary Care Nurse Care Team Related Persons Name: DANIELA GRAY Address: home [address] [place] [address] Name: JASMINE VILLAR Address: home [address] [place] [address]
--- OUTSIDE RECORDS SUMMARY | 2023-10-30 07:26 | XMS_ITS | Continuity of Care Document ---
Author Organization [facility] Address [address] [place] [address]- Care Team Providers Care Director Of Enterprise Strategy Name Role Phone Ro Janak RODRIGUEZ Primary Care Physician Encounter [facility] ACCT R [id number] Date(s): 12/22/22 - 01/21/23 [facility] [address] [place] [address] Allergies, Adverse Reactions, Alerts No [...] DAY Start Date: 05/11/22 Status: Ordered Evening [place] 4 gelcaps, By Mouth, Daily, 0 Refills, [...] 0 Refills, Maintenance, 10/14/20 15:35:00 EDT, Tablet, [facility], Partial fill upon [...] Care Team Personnel Name: Deyanira Holden Position: [facility] Onco RN Member Role: Primary Care Nurse Name: Linda Harris RN Position: [facility] SN RN Member Role: Primary Care Nurse Name: Janak Greer MD Position: [facility] Physician - Primary Care Member Role: PCP Address: Address: [address] [place] [address] Name: Tammy Montelongo RN Position: [facility] SN RN Member Role: Primary Care Nurse Care Team Related Persons Name: DANIELA GRAY Address: home [address] [place] [address] Name: JASMINE VILLAR Address: home [address] [place] [address]
--- OUTSIDE RECORDS SUMMARY | 2023-10-30 07:26 | XMS_ITS | Continuity of Care Document ---
Author Organization [facility] Address [address] [facility] [address] [place] [address]- Care Team Providers Care Videogame Tester Name Role Phone Janak Greer MD Primary Care Physician [phone] Encounter 07/11/19 - 07/18/19 [facility] [address], [address] [address]- [phone] Attending Physician: Janak Greer MD Admitting Physician: [...] tablet, 0Refills, Maintenance, 06/20/19 8:15:00 EDT, Tablet, [facility], 163, cm, 06/20/19 7:35:00 EDT, Height, 108.4, kg, 06/19/19 17:07:00 EDT,... Start Date: 06/20/19 Status: Ordered Problem List Condition Effective Dates Status Health Status Inform ant CKD (chronic kidney disease)(Confirmed) Active Social History Social History Type Response Smoking Status Current every day sm [place]; Type: Cigarettes; Tobacco use times per day: smokes 5 cigaretets per day; Number of years: 20; Total pack years: 20; entered on: 02/15/16 Sex Medical Equipment Implanted Date:12/27/17Target Site:Abdomen Description Quantity MRI [employer] Model MESH BARD 6.6X6.6IN 15X15 CM - BARD ([id number]) 1 Bard Unknown GARO:No Information Assigning Authority: FDA
--- OUTSIDE RECORDS SUMMARY | 2023-10-30 07:26 | XMS_ITS | Continuity of Care Document ---
Author Organization [facility] Address [address] [place] [address]- Care Team Providers Care Striper Name Role Phone Ro Janka RODRIGUEZ Primary Care Physician [phone] [place] [facility] [place] [id number] Date(s): 03/03/22 - 04/02/22 [facility] [address] [place] [address]- Attending Physician: AdmHerminio merrill Admitting Physician: Admtr, [...] 12/19/21 8:35:00 EST, Route to Pharmacy Electronically, [facility] 16797, 162.56, cm, 06/16/21 8:16:00 EDT, Height, 116.8, [...] Start Date: 05/13/19 Status: Ordered Evening [place] 4 gelcaps, By Mouth, Daily, 0 Refills, [...] 0 Refills, Maintenance, 10/14/20 15:35:00 EDT, Tablet, [facility], Partial fill upon patient request if [...] Care Team Personnel Name: Deyanira Holden Position: [facility] Onco RN Member Role: Primary Care Nurse Name: Linda Harris RN Position: [facility] SN RN Member Role: Primary Care Nurse Name: Janak Greer MD Position: [facility] Physician (General Medicine) Member Role: PCP Address: Address: [address] [place] [address]- Name: Jayda WYLIE, Tammy Position: S RN Member Role: Primary Care Nurse Care Team Related Persons Name: DANIELA GRAY Address: home [address] [place] [address] Name: JASMINE VILLAR Address: home [address] [place] [address]
--- OUTSIDE RECORDS SUMMARY | 2023-10-30 07:26 | XMS_ITS | Continuity of Care Document ---
Author Organization [facility] ter Address [address] [place] [address]- Care Team Providers Care Crushing Mill Operator Name Role Phone Janak Greer MD Primary Care Physician Encounter [facility] Date(s): 08/29/19 - 10/05/[address] [address]- [facility] Attending Physician: Janak Greer MD Admitting Physician: [...] 0:09:00 EDT Start Date: 10/06/19 Status: Ordered glipiZIDE 5 mg oral tablet, extended release 1 tablet = 5 mg, 0 Refills, Maintenance, 02/15/16 8:02:33 EST Start Date: 02/15/16 Status: Ordered Humalog 100 u/ml subcutaneous injection [...] tablet, 0Refills, Maintenance, 06/20/19 8:15:00 EDT, Tablet, [facility], 163, cm, 06/20/19 [...] MESH BARD 6.6X6.6IN 15X15 CM - BARD ([id number]) 1 Bard Unknown GARO:No Information Assigning Authority: FDA
--- OUTSIDE RECORDS SUMMARY | 2023-10-30 07:26 | XMS_ITS | Continuity of Care Document ---
Author Organization [facility] Address [address] [place] [address]- Care Team Providers Care Plant Engineering Supervisor Name Role Phone Ro Janak RODRIGUEZ Primary Care Physician [place] [facility] [place] [id number] Date(s): 10/06/21 - 11/05/21 [facility] [address] [place], [place] [address] Attending Physician: Herminio Myles Admitting Physician: AdmHerminio merrill Referring Physician: AdmtrHerminio Allergies, Adverse Reactions, Alerts No Known Allergies Medications atorvastatin 80 mg oral tablet 1 tablet = 80 mg, By Mouth, Daily at bedtime, 0 Refills, Maintenance Start Date: 02/13/12 Status: Ordered carvedilol 6.25 mg oral tablet 6.25 mg, 1, tablet, By Mouth, 2 times a day, # 60 tablet, Refills 5, Tot. Refills 5, Maintenance, 06/24/21 15:16:00 EDT, Route to Pharmacy Electronically, [facility]/pharmacy #[id number], Partial fill upon patient request [...] EDT Start Date: 05/13/19 Status: Ordered Evening [place] 4 gelcaps, By Mouth, Daily, 0 Refills, [...] 0 Refills, Maintenance, 10/14/20 15:35:00 EDT, Tablet, [facility], Partial fill upon patient request [...] Unknown 12/10/21 Unknown Unknown Active Un known Care Team Personnel Name: Janak Greer MD Address: [address] [place] [address]
--- OUTSIDE RECORDS SUMMARY | 2023-10-30 07:26 | XMS_ITS | Continuity of Care Document ---
Author Organization [facility] ter Address [address] [place] [address]- Care Team Providers Care Compliance Auditor Name Role Phone Janak Greer MD Primary Care Physician [phone] Encounter [facility] [place] [id number] Date(s): 06/22/22 - 08/06/[address] [address] Attending Physician: Loretta Bhatia MD Admitting Physician: Loretta Bhatia MD Referring Physician: Janak Greer MD Allergies, [...] 12/19/21 8:35:00 EST, Route to Pharmacy Electronically, [id number], 162.56, cm, 06/16/21 8:16:00 EDT, Height, 116.8, [...] DAY Start Date: 05/11/22 Status: Ordered Evening [place] 4 gelcaps, By Mouth, Daily, 0 Refills, [...] tablet, 0 Refills, Maintenance, 07/26/22 19:09:00 EDT, [facility]/pharmacy #[id number], Partial fill upon patient [...] Maintenance, 10/14/20 15:35:00 EDT, Tablet, [facility], Partial fill upon patient [...] Care Team Personnel Name: Deyanira Holden Position: [facility] Onco RN Member Role: Primary Care Nurse Name: Linda Harris RN Position: [facility] SN RN Member Role: Primary Care Nurse Name: Janak Greer MD Position: [facility] Physician - Primary Care Member Role: PCP Address: Address: [address] [place] [address] Name: Tammy Montelongo RN Position: [facility] SN RN Member Role: Primary Care Nurse Care Team Related Persons Name: DANIELA GRAY Address: home [address] [place] [address] Name: JASMINE VILLAR Address: home [address] [place] [id number]
--- OUTSIDE RECORDS SUMMARY | 2023-10-30 07:26 | XMS_ITS | Continuity of Care Document ---
Author Organization [facility] Address [address] [place] [address]- Care Team Providers Care Leather Crafter Name Role Phone Ro Janak RODRIGUEZ Primary Care Physician Encounter [facility] Date(s): 02/17/23 - 03/19/23 [facility] [address] [place] [id number] Allergies, Adverse Reactions, Alerts No Known Allergies [...] 02/17/23 8:28:00 EST, Route to Pharmacy Electronically, [facility]/pharmacy #[id number], Partial fill upon patient request if the prescr... Start Date: 02/17/23 Stop Date: 02/12/24 Status: Ordered carvedilol 6.25 mg oral tablet 1, tablet, By Mouth, 2 times a day, # 180 tablet, Refills 3, Tot. Refills 3, Maintenance, 12/27/22 13:18:00 EST, Route to Pharmacy Electronically, [facility]/pharmacy #[id number], 163, cm, 08/23/22 9:04:00 [...] DAY Start Date: 05/11/22 Status: Ordered Evening [place] 4 gelcaps, By Mouth, Daily, 0 Refills, [...] 0 Refills, Maintenance, 03/09/23 15:49:00 EST, Solution, [facility]/pharmacy #[id number], 164, cm, 02/17/23 8:01:00 EST, Height, [...] tablet, 0 Refills, Maintenance, 07/26/22 19:09:00 EDT, [facility]/pharmacy #[id number], Partial fill upon patient [...] 0 Refills, Maintenance, 10/14/20 15:35:00 EDT, Tablet, [facility], Partial fill upon patient [...] Care Team Personnel Name: Deyanira Holden Position: [facility] Onco RN Member Role: Primary Care Nurse Name: Janak Greer MD Position: [facility] Physician - Primary Care Member Role: PCP Address: Address: [address] [place] [id number] [place] [address] Name: Tammy Montelongo RN Position: [facility] SN RN Member Role: Primary Care Nurse Care Team Related Persons Name: DANIELA GRAY Address: home [address] [place] [address] Name: JASMINE VILLAR Address: home [address] [place] [address]
--- OUTSIDE RECORDS SUMMARY | 2023-10-30 07:26 | XMS_ITS | Continuity of Care Document ---
Author Organization [facility] Address [address] [place] [address]- Care Team Providers Care Casino Floor Person Name Role Phone Janak Greer MD Primary Care Physician [phone] [id number] Date(s): 03/04/22 - 07/30/22 [facility] [address] [place] [address]- Attending Physician: Letty Floyd NP Referring Physician: Janak Greer MD Allergies, Adverse [...] 06/24/21 15:16:00 EDT, Route to Pharmacy Electronically, [facility]/pharmacy #[id number], Partial fill upon patient request if the prescription is for a schedule II o... Start Date: 06/24/21 Status: Ordered carvedilol 6.25 mg oral tablet 1, tablet, By Mouth, 2 times a day, # 180 tablet, Refills 3, Maintenance, 12/19/21 8:35:00 EST, Route to Pharmacy Electronically, [facility], 162.56, cm, 06/16/21 8:16:00 EDT, Height, 116.8, [...] DAY Start Date: 05/11/22 Status: Ordered Evening [place] 4 gelcaps, By Mouth, Daily, 0 Refills, [...] tablet, 0 Refills, Maintenance, 07/26/22 19:09:00 EDT, [facility]/pharmacy #1130, Partial fill upon patient request if [...] 0 Refills, Maintenance, 10/14/20 15:35:00 EDT, Tablet, [facility], Partial fill upon patient request [...] Care Team Personnel Name: Deyanira Holden Position: [facility] Onco RN Member Role: Primary Care Nurse Name: Linda Harris RN Position: [facility] SN RN Member Role: Primary Care Nurse Name: Janak Greer MD Position: [facility] Physician - Primary Care Member Role: PCP Address: Address: [address] [place] [address] Name: Tammy Montelongo RN Position: [facility] SN RN Member Role: Primary Care Nurse Care Team Related Persons Name: DANIELA GRAY Address: home [address] [place] [address] Name: JASMINE VILLAR Address: home [address] [place] [address]
--- OUTSIDE RECORDS SUMMARY | 2023-10-30 07:26 | XMS_ITS | Continuity of Care Document ---
Author Organization [facility] Address [address] [place] [address]- Care Team Providers Care Sales Outfitter Name Role Phone Janak Greer MD Primary Care Physician [phone] Encounter [facility] [place] Date(s): 04/10/19 - 08/28/19 [facility] [address] [place] [address]- [facility] Discharge Disposition: A-D/C Home Attending Physician: Ama [...] tablet, 0Refills, Maintenance, 06/20/19 8:15:00 EDT, Tablet, [facility], 163, cm, 06/20/19 7:35:00 EDT, Height, 108.4, kg, 06/19/19 17:07:00 EDT,... Start Date: 06/20/19 Status: Ordered Problem List Condition Effective Dates Status Health Status Inform ant CKD (chronic kidney disease)(Confirmed) Active Vital Signs Most recent to oldest [Reference Range]: 1 2 Height 163 cm (06/26/19 9:20 AM) 162 cm (05/13/19 2:53 PM) Weight 109.4 kg (06/26/19 9:20 AM) 107.4 kg (05/13/19 2:53 PM) Pulse Rate [55-90 bpm] 81 bpm (06/26/19 9:20 AM) 68 bpm (05/13/19 2:53 PM) Body Mass Index [18.5-24.99] 41.18 *>HHI* (06/26/19 9:20 AM) 40.92 *>HHI* (05/13/19 2:53 PM) Blood Pressure [90-138/55-84 mm Hg] 139/ 63mm Hg *H* (06/26/19 9:20 AM) 148/69mm Hg *H* (05/13/19 2:53 PM) Temperature [96.8-100.4 DegF] 98.0 DegF (06/26/19 9:20 AM) 98.3 DegF (05/13/19 2:53 PM) Blood pressure sites Arm, right (06/26/19 9:20 AM) Arm, right (05/13/19 2:53 PM) Temperature Route Oral (06/26/19 9:20 AM) Temporal (05/13/19 2:53 PM) Dry Weight 109.4 kg (06/26/19 9:20 AM) 107.4 kg (05/13/19 2:53 PM) Weight Obtained Via Standing scale (06/26/19 9:20 AM) Standing scale (05/13/19 2:53 PM) Dry Weight Obtained Via Standing scale (06/26/19 9:20 AM) Standing scale (05/13/19 2:53 PM) Social History Social History Type Response Smoking Status Current every day guanaco richardson; Type: Cigarettes; Tobacco use times per day: smokes 5 cigaretets per day; Number of years: 20; Total pack years: 20; entered on: 02/15/16 Sex Medical Equipment Implanted Date:12/27/17Target Site:Abdomen Description Quantity MRI Company Model MESH BARD 6.6X6.6IN 15X15 CM - BARD ([id number]) 1 Bard Unknown GARO:No Information Assigning Authority: FDA
--- OUTSIDE RECORDS SUMMARY | 2023-10-30 07:26 | XMS_ITS | Continuity of Care Document ---
Author Organization [facility] Address [address] [place] [address]- Care Team Providers Care Food And Drink Factory Workers Name Role Phone Janak Greer MD Primary Care Physician Encounter [facility] Date(s): 05/11/22 - 05/18/22 [facility] [address] [place] [address]- Attending Physician: Mari Mata NP Referring Physician: Janak Greer MD Allergies, [...] 06/24/21 15:16:00 EDT, Route to Pharmacy Electronically, [facility]/pharmacy #1130, Partial fill upon patient request if the prescription is for a schedule II o... Start Date: 06/24/21 Status: Ordered carvedilol 6.25 mg oral tablet 1, tablet, By Mouth, 2 times a day, # 180 tablet, Refills 3, Maintenance, 12/19/21 8:35:00 EST, Route to Pharmacy Electronically, [facility], 162.56, cm, 06/16/21 8:16:00 EDT, Height, 116.8, [...] DAY Start Date: 05/11/22 Status: Ordered Evening [place] 4 gelcaps, By Mouth, Daily, 0 Refills, [...] 0 Refills, Maintenance, 10/14/20 15:35:00 EDT, Tablet, [facility], Partial fill upon patient request if [...] to oldest [Reference Range]: 1 2 Height 162.56 cm (05/12/22 9:12 AM) 162.56 cm (05/11/22 1:16 PM) Weight 131 kg (05/12/22 9:12 AM) 131 kg (05/11/22 1:16 PM) Oxygen Saturation [94-100 %] 98 % (05/11/22 1:16 PM) Pulse Rate [55-90 bpm] 98 bpm *H* (05/11/22 1:16 PM) Body Mass Index [18.5-24.99 kg/m2] 49.57 kg/m2 *>HHI* (05/11/22 1:16 PM) Blood Pressure [90-138/55-84 mm Hg] 130/ 71mm Hg (05/11/22 1:16 PM) Blood pressure sites Arm, right (05/11/22 1:16 PM) Social History Social History Type Response [...] Active Un known Cardiology Outpatient Note * Mari Mata NP: PERFORM, MODIFY Event Display: Cardiology Note Office Authored Date: [id number] Patient: ??CHEVY WOLF ? Age:??61 Years?Sex:??Female?:??1960?? Patient Hx Cardiology Shared Clinical Summary 1.?? Hypertension 2. ??Dyslipidemia 3. ??SHAWN on CPAP 4.?? Obesity 5.?? History of abnormal stress test in 2008. ??Subsequent cardiac catheterization showed only minimal luminal irregularities and no obstructive??CAD. 6.?? History of DVT, PE??on warfarin 7.?? Left ventricular hypertrophy Indication for Consult Follow Up from ER visit History of Present Illness/Interval History Chevy is a 61-year-old woman with PMh significant for HTN, LVH, who presents today for follow up toED??visit for chest pain. ??She endorses for the last week has been having??some dyspnea along withchest pain??with walking.?? She notes every time she gets up??to walk she will develop left-sided chest pain up into her jaw.?? She notes this last for about 15 minutes after she stops and rest.?? Noother symptoms.?? She does have??occasional palpitations but notes it is hard to decipher if she ishaving??true palpitations versus??panic attack.?? She notes she has been taking it easy in the lastcouple of days??due to fear??of the chest pain. Review of Systems Pertinent positives per HPI Physical Exam Vitals & Measurements MD:??98?? BP:??130/71?? SpO2:??98%?? HT:??162.56??cm?? WT:??131??kg?? BMI:??49.57?? Weight lb/oz: 288 lb 13 oz General: Alert, sitting in chair comfortably, in NAD.??Ambulated independently,??steady??gait. Mental: Oriented x3. Appropriate affect. Converses easily Respiratory:??CTA. Nonlabored. Cardiovascular:??RRR. S1/S2. No M/R/G. No edema. No JVD. Gastrointestinal: Abdomen soft, non-tender, non-distended. Active bowel sounds. Neuro: Grossly intact. Moves all extremities spontaneously. Skin: [place], warm. CDI. Assessment/Plan Hypertension LVH (left ventricular hypertrophy) Palpitation chest pain, symptoms as above? patient presents today for evaluation of chest pain, which she has had for the last week.?? She notes this is every time she walks and will resolve 15 minutes after rest.?? She also has dyspnea??but no other symptoms. ??She has been rather sedentary the last couple of days due to fear of the symptoms.?? To note she has had??yearly??stress testing due to??prior chest pains. ??Last stress test was in May 2021 and revealed no ischemia. ??She did undergo??cardiac catheterization in 2008??revealing minimal luminal irregularities and no obstructive CAD. ?? Plan continue current regimen stress test follow up after stress test Allergies NKA Home Medications atorvastatin 80 mg oral tablet, 80 mg= 1 tablet, By Mouth, Daily at bedtime carvedilol 6.25 mg oral tablet, 6.25 mg= 1 tablet, By Mouth, 2 times a day, 5 refills,?Not taking carvedilol 6.25 mg oral tablet, 1 tablet, By Mouth, 2 times a day Centrum Silver, 1 tab, By Mouth, Daily clonazePAM 0.5 mg oral tablet, 0.5 mg= 1 tablet, By Mouth, 3 times a day escitalopram 20 mg oral tablet, TAKE 1 TABLET BY MOUTH EVERY DAY Evening [place], 4 gelcaps, By Mouth, Daily,?Not taking famotidine [...] tablet, By Mouth, Daily at bedtime, PRN Victoza 18 mg/3 mL subcutaneous solution, 1.8 mg, Subcutaneous Injection, Daily Vitamin D3 1000 intl units oral tablet, 1000 International_Units= 1 tablet, By Mouth, Daily warfarin 10 mg oral tablet, See Instructions, please take 15 mg and 20mg on alternate days Zofran 4 mg oral tablet, 4 mg= 1 tablet, By Mouth, Every 8 hours, PRN Lab Results Cardiology Labs WBC: 8.6 k/mm3 (05/05/22) RBC:??3.92 m/mm3??Low (05/05/22) Hgb: 11.7 Gm/dL (05/05/22) Hct: 36.5 % (05/05/22) MCV: 93.1 femtoliters (05/05/22) MCH: 29.8 pg (05/05/22) MCHC:??32.1 g/dL??Low (05/05/22) Platelet Count: 278 k/mm3 (05/05/22) RDW-SD: 46.5 femtoliters (05/05/22) Nucleated RBC (Automated): 0 #/100 WBC'S (05/05/22) Abs. Neut: 5.9 k/mm3 (05/05/22) Abs. Lymph: 1.9 k/mm3 (05/05/22) Abs. [place]: 0.5 k/mm3 (05/05/22) Abs. Eo: 0.2 k/mm3 (05/05/22) Abs. Baso: 0.1 k/mm3 (05/05/22) Neut %: 68.7 % (05/05/22) [place] %: 6 % (05/05/22) Eos %: 2.7 % (05/05/22) Baso %: 0.7 % (05/05/22) Imm Gran: 0.3 % (05/05/22) Abs. Imm Gran: 0 k/mm3 (05/05/22) INR:??2.4??High (05/05/22) Protime (PT):??24.3 seconds??High (05/05/22) APTT:??43.2 seconds??High (05/05/22) Sodium: 141 mmol/L (05/05/22) Potassium: 4.5 mmol/L (05/05/22) Chloride: 104 mmol/L (05/05/22) Bicarbonate Level: 26 mmol/L (05/05/22) Glucose Level: 95 mg/dL (05/05/22) Hemoglobin A1C (Monitoring):??6.4 %??High (09/14/21) BUN: 22 mg/dL (05/05/22) Creatinine-Blood:??1.5 mg/dL??High (05/05/22) Calcium: 9.5 mg/dL (05/05/22) Protein, Total:??6 Gm/dL??Low (05/05/22) Albumin: 3.9 Gm/dL (05/05/22) Alkaline Phosphatase:??117 units/L??High (05/05/22) AST (SGOT): 20 units/L (05/05/22) ALT (SGPT): 32 units/L (05/05/22) Bilirubin, Total: <0.2 (05/05/22) Troponin T Quant: <0.01 (05/13/21) Nt-Probnp: 33 pg/mL (05/05/22) Cholesterol: 178 mg/dL (09/14/21) Triglycerides: 124 mg/dL (09/14/21) HDL Cholesterol: 76 mg/dL (09/14/21) LDL Cholesterol: 77 mg/dL (09/14/21) Non HDL Cholesterol: 102 mg/dL (09/14/21) TSH: 1.89 uIU/mL (04/01/22) Free T4: 0.82 ng/dL (09/14/21) Diagnostic Impression ECG ECG 12-Lead ?? 07:16:35 Please click on pdf link to open report ?? Signed By: Veronica Dietrich DO ?? ECG 12-Lead ?? 07:16:35 Ventricular Rate: 70 BPM Atrial Rate: 70 BPM P-R Interval: 146 ms QRS Duration: 80 ms Q-T Interval: 396 ms QTC Calculation(Bazett): 427 ms P [place]: 42 degrees R [place]: 10 degrees T [place]: 32 degrees Normal sinus rhythm Normal ECG When compared with ECG of 24-MAY-2021 15:11, No significant change was found Confirmed by VERONICA DIETRICH MD ([id number]) on 06/16/2021 10:50:21 AM ?? [place]: VERONICA DIETRICH MD ?? Signed By: Veronica Dietrich DO Stress Test NM Myocard Perf [...] Care Team Personnel Name: Deyanira Holden Position: [facility] Onco RN Member Role: Primary Care Nurse Name: Linda Harris RN Position: [facility] SN RN Member Role: Primary Care Nurse Name: Janak Greer MD Position: [facility] Physician (General Medicine) Member Role: PCP Address: Address: [address] [place] [id number] [place] [address] Name: Tammy Montelongo RN Position: [facility] SN RN Member Role: Primary Care Nurse Care Team Related Persons Name: DANIELA GRAY Address: home [address] [place] [address] Name: JASMINE VILLAR Address: home [address] [place] [address]
--- OUTSIDE RECORDS SUMMARY | 2023-10-30 07:26 | XMS_ITS | Continuity of Care Document ---
Author Organization [facility] Address [address] [place] [address]- Care Team Providers Care Beef Ribber Name Role Phone Ro Janak RODRIGUEZ Primary Care Physician [phone] [facility] Date(s): 03/15/23 - 04/14/23 [facility] [address] [place] [address] Allergies, Adverse Reactions, Alerts No Known [...] DAY Start Date: 05/11/22 Status: Ordered Evening [place] 4 gelcaps, By Mouth, Daily, 0 Refills, [...] week, rotate injection sites, # 4 each, 1 Refills, Maintenance, 04/07/23 13:14:00 EST, Solution, [facility]/pharmacy #[id number], 164, cm, 02/17/23 8:01:00 EST, Height, 120.9, kg, 03/31/23 19:36:00 EST, Dry Weight Start Date: 04/07/23 Status: Ordered Omeprazole = 20 mg, By [...] Care Team Personnel Name: Deyanira Holden Position: [facility] Onco RN Member Role: Primary Care Nurse Name: Janak Greer MD Position: [facility] Physician - Primary Care Member Role: PCP Address: Address: [address] [place] [address] Name: Tammy Montelongo RN Position: [facility] SN RN Member Role: Primary Care Nurse Care Team Related Persons Name: DANIELA GRAY Address: home [address] [place] [address] Name: JASMINE VILLAR Address: home [address] [place] [id number]
--- OUTSIDE RECORDS SUMMARY | 2023-10-30 07:26 | XMS_ITS | Continuity of Care Document ---
Author Organization [facility] Address [address] [place] [address]- Care Team Providers Care Parking Cashier Name Role Phone Ro Janak RODRIGUEZ Primary Care Physician [place] [facility] [place]s): 02/17/23 - 03/19/23 [facility] [address] [place] [address]- Attending Physician: Herminio Myles Admitting Physician: Herminio [...] 02/17/23 8:28:00 EST, Route to Pharmacy Electronically, [facility]/pharmacy #1130, Partial fill upon patient request if the prescr... Start Date: 02/17/23 Stop Date: 02/12/24 Status: Ordered carvedilol 6.25 mg oral tablet 1, tablet, By Mouth, 2 times a day, # 180 tablet, Refills 3, Tot. Refills 3, Maintenance, 12/27/22 13:18:00 EST, Route to Pharmacy Electronically, [facility]/pharmacy #[id number], 163, cm, 08/23/22 9:04:00 EDT, [...] DAY Start Date: 05/11/22 Status: Ordered Evening [place] 4 gelcaps, By Mouth, Daily, 0 Refills, [...] 0 Refills, Maintenance, 03/09/23 15:49:00 EST, Solution, [facility]/pharmacy #1130, 164, cm, 02/17/23 8:01:00 EST, [...] tablet, 0 Refills, Maintenance, 07/26/22 19:09:00 EDT, [facility]/pharmacy #[id number], Partial fill upon patient request [...] 0 Refills, Maintenance, 10/14/20 15:35:00 EDT, Tablet, [facility], Partial fill upon [...] Unknown 12/10/21 Unknown Unknown Active Un known Radiology * Event Display: MRI Ankle/Foot Authored Date: Patient Care team information Care Team Personnel Name: Deyanira Holden Position: [facility] Onco RN Member Role: Primary Care Nurse Name: Janak Greer MD Position: [facility] Physician - Primary Care Member Role: PCP Address: Address: [address] [place] [address] Name: Tammy Montelongo RN Position: [facility] SN RN Member Role: Primary Care Nurse Care Team Related Persons Name: DANIELA GRAY Address: home [address] [place] [address] Name: JASMINE VILLAR Address: home [address] [place] [phone]
--- OUTSIDE RECORDS SUMMARY | 2023-10-30 07:26 | XMS_ITS | Continuity of Care Document ---
Author Organization [facility] ter Address [address] [place] [address]- Care Team Providers Care Operations Tech Name Role Phone Janak Greer MD Primary Care Physician [phone] Encounter [facility] Date(s): 10/05/19 - 10/06/[address] [address]- [facility] Discharge Disposition: A-D/C Home Attending Physician: Sheryl Sharp MD Admitting Physician: Tang Lake DO Referring Physician: Not on Staff, Referring [...] Exam Date Time Procedure Performing Provider Status 10/05/19 7:21 PM Chest 2 Views Frontal and Lat Chemo Stout; Abdias (Verified) Notes: (Chest 2 Views Frontal and Lat) Reason For Exam: Angina RESULT: Chest 2 Views Frontal and Lat Chest 2 Views Frontal and Lat Hx of Present Illness: Patient reports anterior chest pain radiating into L side of neck and jaw which woke her up out of sleep this am and c o blurry vision and bilat hand and arm tingling. On coumadin for hx of PEs.; Reason: Angina; Clinical Question(s): CHF COMPARISON: 08/13/2019. CT angiogram chest 08/29/2019 reviewed. FINDINGS: LINES AND TUBES: None. LUNGS AND PLEURA: Clear lungs. Normal pulmonary vascularity. No pleural effusion. No pneumothorax. HEART, MEDIASTINUM AND MICHAELA: Heart is normal in size. Normal mediastinal and hilar contour. BONES AND SOFT TISSUES: No acute abnormality. IMPRESSION: Negative. Stable chest. WSN: [id number] Ordering Physician: Komal Duarte Dictated By: Delgado Miller MD Dictated Date/Time: 10/05/19 7:26 pm Reviewed By: Delgado Miller MD Signed By: Delgado Miller MD Signed Date/Time: 10/05/19 7:26 pm Transcribed By: LINDA Transcribed Date/Time: 10/05/19 7:24 pm Vital Signs Most recent to oldest [Reference Range]: 1 2 3 Weight 110 kg (10/05/19 10:20 PM) Oxygen Saturation [94-100 %] 97 % (10/06/19 11:02 AM) 97 % (10/06/19 7:41 AM) 97 % (8/23/20 5:10 AM) Pulse Rate [55-90 bpm] 62 bpm (10/06/19 11:02 AM) 60 bpm (10/06/19 7:41 AM) 61 bpm (10/06/19 5:10 AM) Blood Pressure [90-138/55-84 mm Hg] 137/62mm Hg (10/06/19 11:02 AM) 121/56mm Hg (10/06/19 7:41 AM) 121/56mm Hg (10/06/19 5:10 AM) Respiratory Rate [16-30 br/min] 20 br/min (10/06/19 11:02 AM) 18 br/min (10/06/19 10:27 AM) 20 br/min (10/06/19 7:41 AM) Temperature [96.8-100.4 DegF] 98.2 DegF (10/06/19 11:02 AM) 97.4 DegF (10/06/19 7:41 AM) 97.4 DegF (10/06/19 5:10 AM) Liters per Minute 0 L/min (10/05/19 9:30 PM) 0 L/min (10/05/19 7:35 PM) Mode of Delivery (Oxygen) Room air (10/06/19 11:02 AM) Room air (10/06/19 7:41 AM) Room air (10/06/19 5:10 AM) Blood pressure sites Arm, left (10/06/19 11:02 AM) Arm, left (10/06/19 7:41 AM) Arm, left (10/06/19 5:10 AM) Temperature Route Oral (10/06/19 11:02 AM) Oral (10/06/19 7:41 AM) Oral (10/06/19 5:10 AM) Weight Obtained Via Standing scale (10/05/19 10:20 PM) Social History Social History Type Response Smoking Status Current every day guanaco richardson; Type: Cigarettes; Tobacco use times per day: smokes 5 cigaretets per day; Number of years: 20; Total pack years: 20; entered on: 02/15/16 Sex Medical Equipment Implanted Date:12/27/17Target Site:Abdomen Description Quantity MRI Company Model MESH BARD 6.6X6.6IN 15X15 CM - [place] ([id number]) 1 Bard Unknown GARO:No Information Assigning Authority: FDA
--- OUTSIDE RECORDS SUMMARY | 2023-10-30 07:26 | XMS_ITS | Continuity of Care Document ---
Author Organization [facility] Address [address] [place] [address]- Care Team Providers Care Warping Machine Operator Name Role Phone Janak Greer MD Primary Care Physician [place] [facility] [place] 12/27/22 - 01/26/23 [facility] [address] [place] [address]- [place] Allergies, Adverse Reactions, Alerts No Known Allergies Medications atorvastatin 80 mg oral tablet 1 tablet = 80 mg, By Mouth, Daily at bedtime, 0 Refills, Maintenance Start Date: 02/13/12 Status: Ordered carvedilol 6.25 mg oral tablet 6.25 mg, 1, tablet, By Mouth, 2 times a day, # 60 tablet, Refills 5, Tot. Refills 5, Maintenance, 06/24/21 15:16:00 EDT, Route to Pharmacy Electronically, [facility]/pharmacy #[id number], Partial fill upon patient request if the prescription is for a schedule II o... Start Date: 06/24/21 Status: Ordered carvedilol 6.25 mg oral tablet 1, tablet, By Mouth, 2 times a day, # 180 tablet, Refills 3, Tot. Refills 3, Maintenance, 12/27/22 13:18:00 EST, Route to Pharmacy Electronically, [facility]/pharmacy #[id number], 163, cm, 08/23/22 9:04:00 EDT, [...] DAY Start Date: 05/11/22 Status: Ordered Evening [place] 4 gelcaps, By Mouth, Daily, 0 Refills, [...] 0 Refills, Maintenance, 07/26/22 19:09:00 EDT, [facility]/pharmacy #[id number], Partial fill upon patient request [...] 0 Refills, Maintenance, 10/14/20 15:35:00 EDT, Tablet, [facility], Partial fill upon patient request if [...] Care Team Personnel Name: Deyanira Holden Position: [facility] Onco RN Member Role: Primary Care Nurse Name: Linda Harris RN Position: [facility] SN RN Member Role: Primary Care Nurse Name: Janak Greer MD Position: S Physician - Primary Care Member Role: PCP Address: Address: [address] [place] [address] Name: Tammy Montelongo RN Position: [facility] SN RN Member Role: Primary Care Nurse Care Team Related Persons Name: DANIELA GRAY Address: home [address] [place] [address] Name: JASMINE VILLAR Address: home [address] [place] [address]
--- OUTSIDE RECORDS SUMMARY | 2023-10-30 07:26 | XMS_ITS | Continuity of Care Document ---
Author Organization [facility] ter Address [address] [place] [address]- Care Team Providers Care Mechanical Operator Name Role Phone Ro Janak RODRIGUEZ Primary Care Physician [phone] [place] [facility] [id number] Date(s): 02/04/23 - 02/05/[address] [address]- Discharge Disposition: A-D/C AMA Attending Physician: Deyvi Candelaria MD Admitting Physician: Deyvi Candelaria MD Referring Physician: Not on Staff, Referring [...] 06/24/21 15:16:00 EDT, Route to Pharmacy Electronically, [facility]/pharmacy #[id number], Partial fill upon patient request if the prescription is for a schedule II o... Start Date: 06/24/21 Status: Ordered carvedilol 6.25 mg oral tablet 1, tablet, By Mouth, 2 times a day, # 180 tablet, Refills 3, Tot. Refills 3, Maintenance, 12/27/22 13:18:00 EST, Route to Pharmacy Electronically, [facility]/pharmacy #[id number], 163, cm, 08/23/22 9:04:00 EDT, [...] DAY Start Date: 05/11/22 Status: Ordered Evening [place] 4 gelcaps, By Mouth, Daily, 0 Refills, [...] tablet, 0 Refills, Maintenance, 07/26/22 19:09:00 EDT, [facility]/pharmacy #[id number], Partial fill upon patient request [...] Exam Date Time Procedure Performing Provider Status 02/04/23 6:30 PM Chest 2 Views Frontal and Lat Wiuyen , Silvana; Auth (Verified) Notes: (Chest 2 Views Frontal and Lat) Reason For Exam: Chest Pain;Other: RESULT: Chest 2 Views Frontal and Lat Chest 2 Views Frontal and Lat Hx of Present Illness: Cp with onset 2 hrs DIRECTOR OF STUDENT LIFE; Reason: Other:; Chest Pain; Clinical Question(s): Other: COMPARISON: Chest x-ray 07/26/2022 FINDINGS: LINES AND TUBES: None. LUNGS AND PLEURA: Central vascular markings are mildly prominent. No focal opacity or volume loss. No pleural effusion. No pneumothorax. HEART, MEDIASTINUM AND MICHAELA: Heart is at the upper limits of normal for size. Normal mediastinal and hilar contour. BONES AND SOFT TISSUES: No acute abnormality. IMPRESSION: Borderline cardiac enlargement and mild vascular congestion without edema or effusions. No pneumonia. WSN: [id number] Ordering Physician: Newton Hurt Dictated By: Delgado Michael MD Dictated Date/Time: 02/04/23 6:45 pm Reviewed By: Delgado Michael MD Signed By: Delgado Michael MD Signed Date/Time: 02/04/23 6:45 pm Transcribed By: LINDA Transcribed Date/Time: 02/04/23 6:44 pm Vital Signs Most recent to oldest [Reference Range]: 1 2 3 Height 164 cm (02/04/23 5:57 PM) 163 cm (02/04/23 5:56 PM) Weight 121 kg (02/04/23 5:56 PM) Oxygen Saturation [94-100 %] 100 % (02/04/23 11:31 PM) 96 % (02/04/23 7:13 PM) 97 % (02/04/23 5:57 PM) Pulse Rate [55-90 bpm] 61 bpm (02/04/23 11:31 PM) 64 bpm (02/04/23 7:13 PM) 62 bpm (02/04/23 5:57 PM) Blood Pressure [90-138/55-84 mm Hg] 134/70mm Hg (02/04/23 11:31 PM) 136/61mm Hg (02/04/23 7:13 PM) 146/74mm Hg *H* (02/04/23 5:57 PM) Respiratory Rate [16-30 br/min] 19 br/min (02/04/23 11:31 PM) 18 br/min (02/04/23 7:13 PM) 20 br/min (02/04/23 5:57 PM) Temperature [96.8-100.4 DegF] 98.2 DegF (02/04/23 11:31 PM) 97.8 DegF (02/04/23 7:13 PM) 97.8 DegF (02/04/23 5:57 PM) Mode of Delivery (Oxygen) Room air (02/04/23 11:31 PM) Room air (02/04/23 7:13 PM) Room air (02/04/23 5:57 PM) Blood pressure sites Arm, right (02/04/23 11:31 PM) Arm, left (02/04/23 7:13 PM) Arm, left (02/04/23 5:57 PM) Temperature Route Oral (02/04/23 11:31 PM) Oral (02/04/23 7:13 PM) Oral (02/04/23 5:57 PM) Dry Weight 121 kg (02/04/23 5:57 PM) 121 kg (02/04/23 5:56 PM) Dry Weight Obtained Via Patient/family s tated (02/04/23 5:57 PM) Social History Social History Type Response [...] Unknown 12/10/21 Unknown Unknown Active Un known EKG study * Event Display: EKG Authored Date: * Event Display: ECG 12-Lead Authored Date: Please click on pdf link to open report * Event Display: ECG 12-Lead Authored Date: Ventricular Rate: 62 BPM Atrial Rate: 62 BPM P-R Interval: 166 ms QRS Duration: 90 ms Q-T Interval: 412 ms QTC Calculation(Bazett): 418 ms P [place]: 15 degrees R [place]: -3 degrees T [place]: 16 degrees Normal sinus rhythm Normal ECG When compared with ECG of 26-JUL-2022 14:05, No significant change was found Confirmed by TORIE ANN ([id number]) on 02/05/2023 10:43:18 AM [place]: TORIE ANN Patient Care team information Care Team Personnel Name: Deyanira Holden Position: [facility] Onco RN Member Role: Primary Care Nurse Name: Linda Harris RN Position: [facility] SN RN Member Role: Primary Care Nurse Name: Janak Greer MD Position: [facility] Physician - Primary Care Member Role: PCP Address: Address: [address] [place] [address] Name: Tammy Montelnogo RN Position: [facility] SN RN Member Role: Primary Care Nurse Care Team Related Persons Name: DANIELA GRAY Address: home [address] [place] [address] Name: JASMINE VILLAR Address: home [address] [place] [address]
--- OUTSIDE RECORDS SUMMARY | 2023-10-30 07:26 | XMS_ITS | Continuity of Care Document ---
Author Organization [facility] Address [address] [place] [address]- Care Team Providers Care Continuous Drier Operator Name Role Phone Janak Greer MD [id number] - 03/26/[facility] [address] [place] [address]- Attending Physician: Marilu Coe MD Referring Physician: [...] 06/24/21 15:16:00 EDT, Route to Pharmacy Electronically, [facility]/pharmacy #[id number], Partial fill upon patient request if the prescription is for a schedule II o... Start Date: 06/24/21 Status: Ordered carvedilol 6.25 mg oral tablet 1, tablet, By Mouth, 2 times a day, # 180 tablet, Refills 3, Maintenance, 12/19/21 8:35:00 EST, Route to Pharmacy Electronically, [id number], 162.56, cm, 06/16/21 8:16:00 EDT, Height, 116.8, kg,10/14/20 13:50:00 EDT, Dry Weight Start Date: 12/19/21 Status: Ordered Centrum Silver 1 tab, By Mouth, Daily, 0 Refills, Maintenance, 02/14/16 20:44:22 EST Start Date: 02/14/16 Status: Ordered clonazePAM 0.5 mg oral tablet 1 tablet = 0.5 mg, By Mouth, 3 times a day, 0 Refills, Maintenance, 05/13/19 15:05:00 EDT Start Date: 05/13/19 Status: Ordered Evening [place] 4 gelcaps, By Mouth, Daily, 0 Refills, [...] 0 Refills, Maintenance, 10/14/20 15:35:00 EDT, Tablet, [facility] 3, Partial fill upon patient request if [...] Care Team Personnel Name: Deyanira Holden Position: [facility] Onco RN Member Role: Primary Care Nurse Name: Linda Harris RN Position: [facility] SN RN Member Role: Primary Care Nurse Name: Janak Greer MD Position: [facility] Physician (General Medicine) Member Role: PCP Address: Address: [address] [place] [address] Name: Jayda WYLIE, Tammy Position: S RN Member Role: Primary Care Nurse Care Team Related Persons Name: JADA GRAYSJ Address: home [address] [place] [address] Name: JASMINE VILLAR Address: home [address] [place] [address]
--- OUTSIDE RECORDS SUMMARY | 2023-10-30 07:26 | XMS_ITS | Continuity of Care Document ---
Author Organization [facility] ter Address [address] [place] [address]- Care Team Providers Care Chief Recordist Name Role Phone Ro Janak RODRIGUEZ Primary Care Physician Encounter [facility] [place] [id number] Date(s): 04/05/22 - 05/25/[address] [address] Attending Physician: Adrienne Murphy NP Admitting Physician: Adrienne Murphy NP Referring Physician: Adrienne Murphy NP Allergies, Adverse Reactions, Alerts No Known Allergies Medications atorvastatin 80 mg oral tablet 1 tablet = 80 mg, By Mouth, Daily at bedtime, 0 Refills, Maintenance Start Date: 02/13/12 Status: Ordered carvedilol 6.25 mg oral tablet 6.25 mg, 1, tablet, By Mouth, 2 times a day, # 60 tablet, Refills 5, Tot. Refills 5, Maintenance, 06/24/21 15:16:00 EDT, Route to Pharmacy Electronically, [facility]/pharmacy #[id number], Partial fill upon patient request if the prescription is for a schedule II o... Start Date: 06/24/21 Status: Ordered carvedilol 6.25 mg oral tablet 1, tablet, By Mouth, 2 times a day, # 180 tablet, Refills 3, Maintenance, 12/19/21 8:35:00 EST, Route to Pharmacy Electronically, [facility], 162.56, cm, 06/16/21 8:16:00 EDT, Height, 116.8, [...] DAY Start Date: 05/11/22 Status: Ordered Evening [place] 4 gelcaps, By Mouth, Daily, 0 Refills, [...] 0 Refills, Maintenance, 10/14/20 15:35:00 EDT, Tablet, [facility], Partial fill upon patient request if [...] Care Team Personnel Name: Deyanira Holden Position: [facility] Onco RN Member Role: Primary Care Nurse Name: Linda Harris RN Position: [facility] SN RN Member Role: Primary Care Nurse Name: Janak Greer MD Position: [facility] Physician (General Medicine) Member Role: PCP Address: Address: [address] [place] [address] Name: Tammy Montelongo RN Position: [facility] SN RN Member Role: Primary Care Nurse Care Team Related Persons Name: DANIELA GRAY Address: home [address] [place] [address] Name: JASMINE VILLAR Address: home [address] [place] [address]
--- OUTSIDE RECORDS SUMMARY | 2023-10-30 07:26 | XMS_ITS | Continuity of Care Document ---
Author Organization [facility] Address [address] [place] [address]- Care Team Providers Care Check Out Cashier Name Role Phone Janak Greer MD Primary Care Physician [place] [facility] [place]23 [facility] [address] [place] [address] Encounter Diagnosis Type 2 diabetes mellitus(Discharge Diagnosis) - 08/31/23 HLD (hyperlipidemia)(Discharge Diagnosis) - 08/31/23 Attending Physician: Marjorie Sousa MD Referring Physician: Janak Greer MD Allergies, [...] Maintenance, 08/31/23 10:34:00 EDT, Solution, [facility]/pharmacy #[id number], Partial fill upon [...] Diagnosis Diagnosis Type Effective Dates Health Status Cl inical Service Informant Type 2 diabetes mellitus Discharge Diagnosis 08/31/23 HLD (hyperlipidemia) Discharge Diagnosis 08/31/23 Vital Signs Most recent to oldest [Reference Range]: 1 Height 163 cm (08/31/23 10:10 AM) Weight 116.6 kg (08/31/23 10:10 AM) Pulse Rate [55-90 bpm] 69 bpm (08/31/23 10:10 AM) Body Mass Index [18.5-24.99 kg/m2] 43.89 kg/m2 *>HHI* (08/31/23 10:10 AM) Blood Pressure [90-138/55-84 mm Hg] 123/ 56mm Hg (08/31/23 10:10 AM) Blood pressure sites Arm, right (08/31/23 10:10 AM) Weight Obtained Via Bed scale (08/31/23 10:10 AM) Social History Social History Type Response [...] Care Team Personnel Name: Deyanira Holden Position: [facility] Onco RN Member Role: Primary Care Nurse Name: Linda Harris RN Position: [facility] SN RN Member Role: Primary Care Nurse Name: Janak Greer MD Position: [facility] Physician - Primary Care Member Role: PCP Address: Address: [address] [place] [id number] [place] [address] Name: Tammy Montelongo RN Position: [facility] SN RN Member Role: Primary Care Nurse Care Team Related Persons Name: DANIELA GRAY Address: home [address] [place] [address] Name: JIAN JASMINE Address: home [address] [place] [address]
--- OUTSIDE RECORDS SUMMARY | 2023-10-30 07:26 | XMS_ITS | Continuity of Care Document ---
Author Organization [facility] Address [address] [place] [address]- Care Team Providers Care Information Technology Data Analyst Name Role Phone Ro Janak RODRIGUEZ Primary Care Physician [phone] [place] [facility] [place] [id number] Date(s): 02/19/22 - 02/26/22 [facility] [address] [place] [address]- Attending Physician: Eddie Patten MD Allergies, Adverse Reactions, Alerts No Known Allergies Medications atorvastatin 80 mg oral tablet 1 tablet = 80 mg, By Mouth, Daily at bedtime, 0 Refills, Maintenance Start Date: 02/13/12 Status: Ordered carvedilol 6.25 mg oral tablet 6.25 mg, 1, tablet, By Mouth, 2 times a day, # 60 tablet, Refills 5, Tot. Refills 5, Maintenance, 06/24/21 15:16:00 EDT, Route to Pharmacy Electronically, [facility]/pharmacy #[id number], Partial fill upon patient request if the prescription is for a schedule II o... Start Date: 06/24/21 Status: Ordered carvedilol 6.25 mg oral tablet 1, tablet, By Mouth, 2 times a day, # 180 tablet, Refills 3, Maintenance, 12/19/21 8:35:00 EST, Route to Pharmacy Electronically, [facility], 162.56, cm, 06/16/21 8:16:00 EDT, Height, 116.8, kg,10/14/20 13:50:00 EDT, Dry Weight Start Date: 12/19/21 Status: Ordered Centrum Silver 1 tab, By Mouth, Daily, 0 Refills, Maintenance, 02/14/16 20:44:22 EST Start Date: 02/14/16 Status: Ordered clonazePAM 0.5 mg oral tablet 1 tablet = 0.5 mg, By Mouth, 3 times a day, 0 Refills, Maintenance, 05/13/19 15:05:00 EDT Start Date: 05/13/19 Status: Ordered Evening [place] 4 gelcaps, By Mouth, Daily, 0 Refills, [...] 0 Refills, Maintenance, 10/14/20 15:35:00 EDT, Tablet, [facility], Partial fill upon patient [...] Holden Position: [facility] Onco RN Member Role: Primary Care Nurse Name: Linda Harris RN Position: [facility] SN RN Member Role: Primary Care Nurse Name: Janak Greer MD Position: [facility] Physician (General Medicine) Member Role: PCP Address: Address: [address] [place] [address] Name: Tammy Montelongo RN Position: [facility] SN RN Member Role: Primary Care Nurse Care Team Related Persons Name: DANIELA GRAY Address: home [address] [place] [address] Name: JASMINE VILLAR Address: home [address] [place] [address]
--- OUTSIDE RECORDS SUMMARY | 2023-10-30 07:26 | XMS_ITS | Continuity of Care Document ---
Author Organization [facility] ter Address [address] [place] [address]- Care Team Providers Care Manufacturing Engineering Professor Name Role Phone Ro Janak RODRIGUEZ Primary Care Physician Encounter [facility] [place] Date(s): 05/05/22 - 05/05/[address] [address]- Encounter Diagnosis Chest pain(Final) - 05/05/22 Jaw pain(Final) - 05/05/22 History of pulmonary embolism(Final) - 05/05/22 Calf pain(Final) - 05/05/22 Discharge Disposition: A-D/C Home Attending Physician: Bhavin Hoang MD Admitting Physician: Bhavin Hoang MD Referring Physician: Not on Staff, Referring [...] 06/24/21 15:16:00 EDT, Route to Pharmacy Electronically, [facility]/pharmacy #[id number], Partial fill upon patient request if the prescription is for a schedule II o... Start Date: 06/24/21 Status: Ordered carvedilol 6.25 mg oral tablet 1, tablet, By Mouth, 2 times a day, # 180 tablet, Refills 3, Maintenance, 12/19/21 8:35:00 EST, Route to Pharmacy Electronically, [facility] STORE [id number], 162.56, cm, 06/16/21 8:16:00 EDT, Height, 116.8, kg,10/14/20 13:50:00 EDT, Dry Weight Start Date: 12/19/21 Status: Ordered Centrum Silver 1 tab, By Mouth, Daily, 0 Refills, Maintenance, 02/14/16 20:44:22 EST Start Date: 02/14/16 Status: Ordered clonazePAM 0.5 mg oral tablet 1 tablet = 0.5 mg, By Mouth, 3 times a day, 0 Refills, Maintenance, 05/13/19 15:05:00 EDT Start Date: 05/13/19 Status: Ordered Evening [place] 4 gelcaps, By Mouth, Daily, 0 Refills, [...] EDT, Tablet Start Date: 06/19/19 Status: Ordered Nitroglycerin 0.4mg Sublingual Tablet 0.4 mg, Tablet, Sublingual, Every 5 minutes for 3 doses/times, PRN for Chest Pain, Keep SBP greaterthan 100 mm Hg, If patient has ST elevation, administer only one tablet., Routine, 05/05/22 13:47:00 EDT, Stop date Limited # of times Start Date: 05/05/22 Stop Date: 05/06/22 Status: Discontinued Omeprazole = 20 mg, By Mouth, Daily, [...] 0 Refills, Maintenance, 10/14/20 15:35:00 EDT, Tablet, [facility] 3, Partial fill upon [...] Exam Date Time Procedure Performing Provider Status 05/05/22 2:46 PM Chest 2 Views Frontal and Lat Nancy Arrington; Auth (Verified) Notes: (Chest 2 Views Frontal and Lat) Reason For Exam: Angina RESULT: Chest 2 Views Frontal and Lat Chest 2 Views Frontal and Lat Reason: Angina; Clinical Question(s): Pneumonia COMPARISON: 05/10/2020. FINDINGS: Single AP upright and lateral chest x-rays labeled approximately 3:00 PM. LUNGS AND PLEURA: Clear lungs. Normal pulmonary vascularity. No pleural effusion. No pneumothorax. HEART, MEDIASTINUM AND MICHAELA: Heart is normal in size. Normal mediastinal and hilar contour. BONES AND SOFT TISSUES: No acute abnormality. IMPRESSION: No acute abnormality. WSN: [id number] Ordering Physician: Joleen Lazo Dictated By: Valdemar Whitlock MD Dictated Date/Time: 05/05/22 4:16 pm Reviewed By: Valdemar Whitlock MD Signed By: Valdemar Whitlock MD Signed Date/Time: 05/05/22 4:16 pm Transcribed By: LINDA Transcribed Date/Time: 05/05/22 4:14 pm * Exam Date Time Procedure Performing Provider Status 05/05/22 2:10 PM US Doppler Ext Lower Venous Bilat Hasmukh Almaraz; Auth (Verified) Notes: (US Doppler Ext Lower Venous Bilat) Reason For Exam: Pain in limb;Other: RESULT: US Doppler Ext Lower Venous Bilat US Doppler Ext Lower Venous Bilat Reason: Other:; Pain in limb; Clinical Question(s): Thrombosis COMPARISON: 03/12/2021 IMAGING TECHNIQUE: Ultrasound of the veins from the groin through the calf was performed using grayscale, color, and spectral Doppler ultrasound assessing for complete compressibility and normal flowcharacteristics. FINDINGS: RIGHT LOWER EXTREMITY: Common femoral vein: Patent. No thrombosis. Femoral vein: Patent. No thrombosis. Popliteal vein: Patent. No thrombosis. Gastrocnemius veins: The visualized portions are patent without evidence of thrombosis. Peroneal veins: The visualized portions are patent without evidence of thrombosis. Posterior tibial veins: The visualized portions are patent without evidence of thrombosis. LEFT LOWER EXTREMITY: Common femoral vein: Patent. No thrombosis. Femoral vein: Patent. No thrombosis. Popliteal vein: Patent. No thrombosis. Gastrocnemius veins: The visualized portions are patent without evidence of thrombosis. Peroneal veins: The visualized portions are patent without evidence of thrombosis. Posterior tibial veins: The visualized portions are patent without evidence of thrombosis. OTHER FINDINGS: None. IMPRESSION: No evidence of deep venous thrombosis. WSN: [id number] Ordering Physician: Joleen Lazo Dictated By: Lino Holley MD Dictated Date/Time: 05/05/22 2:39 pm Reviewed By: Lino Holley MD Signed By: Lino Holley MD Signed Date/Time: 05/05/22 2:39 pm Transcribed By: CSJelani Transcribed Date/Time: 05/05/22 2:38 pm Vital Signs Most recent to oldest [Reference Range]: 1 2 3 Oxygen Saturation [94-100 %] 96 % (05/05/22 2:43 PM) 96 % (05/05/22 12:54 PM) Pulse Rate [55-90 bpm] 59 bpm (05/05/22 2:43 PM) 63 bpm (05/05/22 12:54 PM) Blood Pressure [90-138/55-84 mm Hg] 101/80mm Hg (05/05/22 2:43 PM) 147/70mm Hg *H* (05/05/22 12:54 PM) Respiratory Rate [16-30 br/min] 17 br/min (05/05/22 2:43 PM) 18 br/min (05/05/22 1:25 PM) 17 br/min (05/05/22 12:54 PM) Temperature [96.8-100.4 DegF] 99.2 DegF (05/05/22 1:16 PM) Mode of Delivery (Oxygen) Room air (05/05/22 2:43 PM) Room air (05/05/22 12:54 PM) Temperature Route Oral (05/05/22 1:16 PM) Social History Social History Type [...] Unknown Unknown Active Un known Note * Joleen Lazo DO: PERFORM Event Display: Patient Education Leaflets Authored Date: [id number] Uncertain Causes of Chest Pain ?? [id number] Uncertain Causes of Chest Pain Chest pain can happen for a number of reasons. Sometimes the cause can't be determined. If your??condition does not seem serious, and your pain does not appear to be coming from your heart, your healthcare provider may recommend watching it closely. Sometimes the signs of a serious problem take more time to appear. Many problems not related to your heart can cause chest pain. These include: ??? Musculoskeletal. Costochondritis is an inflammation of the tissues around the ribs that can occur from trauma or overuse injuries, or a strain of the muscles of the chest wall. ??? Respiratory. Pneumonia, collapsed lung (pneumothorax), or inflammation of the lining of the chest and lungs (pleurisy). ??? Gastrointestinal. Esophageal reflux, heartburn, ulcers, or gallbladder disease. ??? Anxiety and panic disorders ??? Nerve compression and inflammation ??? Rare problems such as aortic aneurysm or aortic dissection (a swelling of the large artery coming out of the heart or a tear in the wall of the artery), or pulmonary embolism (a blood clot in the lungs). Home care After your visit, follow these recommendations: ??? Rest today and avoid strenuous activity. ??? Take any prescribed medicine as directed. ??? Be aware of any recurrent chest pain and notice any changes ?? Follow-up care Follow up with your healthcare provider if you don't start to feel better within 24 hours, or as advised. ?? Call 911 Call 911 if any of these occur: ??? A change in the type of pain: if it feels different, becomes more severe, lasts longer, or begins to spread into your shoulder, arm, neck, jaw or back ??? Shortness of breath or increased pain with breathing ??? Weakness, dizziness, or fainting ??? Rapid heartbeat ??? Crushing sensation in your chest ??? Coughing up more than a small amount of blood. ?? When to seek medical advice Call your healthcare provider right away if any of the following occur: ??? Cough with dark coloredsputum (phlegm) or small amount of blood ??? Fever of 100.4??F??(38??C) or higher, or as directed by your healthcare provider ??? Swelling, pain or redness in one leg ?? Last Reviewed Date: 2021 ?? [employer]. All rights reserved. This information is not intended as a substitute for professional medical care. Always follow your healthcare professional's instructions. ?? * Joleen Lazo DO: PERFORM Event Display: Patient Education Leaflets Authored Date: [id number] Noncardiac Chest Pain ?? [id number] Noncardiac Chest Pain In most cases, people who come to the emergency room with chest pain don???t have a problem with their heart. Instead, the pain is caused by other conditions. It's important for the healthcare team to be sure you are not having a life-threatening cause for chest pain such as: ??? Heart attack ??? Blood clot in the lungs ??? Collapsed lung ??? Ruptured esophagus ??? Tearing of the aorta Once these major causes have been ruled out, you may have further evaluation for other causes of chest pain. These may be problems with the lungs, muscles, bones, digestive tract, nerves, or mental health. They include: ??? Inflammation around the lungs (pleurisy) ??? Collapsed lung (pneumothorax) ??? Lung inflammation (pleuritis or pneumonitis) ??? Fluid around the lung (pleural effusion) ??? Lung cancer (rare cause of chest pain) ??? Inflamed cartilage between the ribs (costochondritis) ??? Fibromyalgia ??? Rheumatoid arthritis ??? Chest wall strain ??? Reflux ??? Stomach ulcer ??? Spasms of the esophagus ??? Gall stones ??? Gallbladder inflammation ??? Panic or anxiety attacks ??? Emotional distress Your pain doesn???t seem to be coming from your heart. But sometimes the signs of a serious problemtake more time to appear. Continue to watch for the warning signs listed below. Home care Follow these guidelines when caring for yourself at home: ??? Rest today and don't do any strenuousactivity. ??? Take any prescribed medicine as directed. ?? Follow-up care Follow up with your healthcare provider as advised. ?? Call 911 Call 911 if any of these occur: ??? A change in the type of pain: if it feels different, becomes more severe, lasts longer, or begins to spread into your shoulder, arm, neck, jaw or back ??? Shortness of breath or increased pain with breathing ??? Weakness, dizziness, or fainting ??? Rapid heart beat ??? Crushing sensation in your chest ?? When to seek medical advice Call your healthcare provider right away if any of these occur: ??? Cough with dark colored sputum (phlegm) or blood ??? Fever of 100.4??F (38??C) or higher, or as directed by your healthcare provider ??? Swelling, pain or redness in one leg ?? Last Reviewed Date: 2021 ?? 2457-5121 [employer]. All rights reserved. This information is not intended as a substitute for professional medical care. Always follow your healthcare professional's instructions. ?? * ISAAC Gonsalez S: Valdemar Yuen MD: VERIFY Event Display: Result: Authored Date: [id number] Chest 2 Views Frontal and Lat Reason: Angina; Clinical Question(s): Pneumonia COMPARISON: 05/10/2020. FINDINGS: Single AP upright and lateral chest x-rays labeled approximately 3:00 PM. LUNGS AND PLEURA: Clear lungs. Normal pulmonary vascularity. No pleural effusion. No pneumothorax. HEART, MEDIASTINUM AND MICHAELA: Heart is normal in size. Normal mediastinal and hilar contour. BONES AND SOFT TISSUES: No acute abnormality. IMPRESSION: No acute abnormality. WSN: [id number] Ordering Physician: Joleen Lazo Dictated By: Valdemar Whitlock MD Dictated Date/Time: 05/05/22 4:16 pm Reviewed By: Valdemar Whitlock MD Signed By: Valdemar Whitlock MD Signed Date/Time: 05/05/22 4:16 pm Transcribed By: LINDA Transcribed Date/Time: 05/05/22 4:14 pm US.doppler Lower extremity vein - bilateral * ISAAC Gonsalez S: Lino Wells MD: VERIFY Event Display: Result: Authored Date: [id number] US Doppler Ext Lower Venous Bilat Reason: Other:; Pain in limb; Clinical Question(s): Thrombosis COMPARISON: 03/12/2021 IMAGING TECHNIQUE: Ultrasound of the veins from the groin through the calf was performed using grayscale, color, and spectral Doppler ultrasound assessing for complete compressibility and normal flowcharacteristics. FINDINGS: RIGHT LOWER EXTREMITY: Common femoral vein: Patent. No thrombosis. Femoral vein: Patent. No thrombosis. Popliteal vein: Patent. No thrombosis. Gastrocnemius veins: The visualized portions are patent without evidence of thrombosis. Peroneal veins: The visualized portions are patent without evidence of thrombosis. Posterior tibial veins: The visualized portions are patent without evidence of thrombosis. LEFT LOWER EXTREMITY: Common femoral vein: Patent. No thrombosis. Femoral vein: Patent. No thrombosis. Popliteal vein: Patent. No thrombosis. Gastrocnemius veins: The visualized portions are patent without evidence of thrombosis. Peroneal veins: The visualized portions are patent without evidence of thrombosis. Posterior tibial veins: The visualized portions are patent without evidence of thrombosis. OTHER FINDINGS: None. IMPRESSION: No evidence of deep venous thrombosis. WSN: [id number] Ordering Physician: Joleen Lazo Dictated By: Lino Holley MD Dictated Date/Time: 05/05/22 2:39 pm Reviewed By: Lino Holley MD Signed By: Lino Holley MD Signed Date/Time: 05/05/22 2:39 pm Transcribed By: CSJelani Transcribed Date/Time: 05/05/22 2:38 pm Patient Care team information Care Team Personnel Name: Deyanira Holden Position: [facility] Onco RN Member Role: Primary Care Nurse Name: Linda Harris RN Position: [facility] SN RN Member Role: Primary Care Nurse Name: Janak Greer MD Position: [facility] Physician (General Medicine) Member Role: PCP Address: Address: [address] [place] [address]- Name: Tammy Montelongo RN Position: [facility] SN RN Member Role: Primary Care Nurse Name: Bhavin Hoang MD Position: [facility] ED Medicine MD Member Role: Admitting Physician Address: Address: [address] [place] [address]- Name: Rosita Dean Position: [facility] ED TA [facility] Member Role: Water Resources Engineer Name: Dasia Shearer RN Position: [facility] ED RN W/OE and Tasks Member Role: Patient Care Provider Name: Joleen Lazo DO Position: [facility] Resident Member Role: ED Resident Address: Address: [address] [place] [address]- Care Team Related Persons Name: DANIELA GRAY Address: home [address] [place] [address] Name: JASMINE VILLAR Address: home [address] [place] [address]
--- OUTSIDE RECORDS SUMMARY | 2023-10-30 07:26 | XMS_ITS | Continuity of Care Document ---
Author Organization [facility] ter Address [address] [place] [address]- Care Team Providers Care Blood Bank Credit Clerk Name Role Phone Ro Janak RODRIGUEZ Primary Care Physician Encounter [facility] Date(s): 02/23/21 - 10/01/[address] [address] Attending Physician: Letty Floyd NP Admitting Physician: Mariel CARRERA, Letty Emmanuel Referring [...] 06/24/21 15:16:00 EDT, Route to Pharmacy Electronically, [facility]/pharmacy #[id number], Partial fill upon patient request [...] EDT Start Date: 05/13/19 Status: Ordered Evening [place] 4 gelcaps, By Mouth, Daily, 0 Refills, [...] 0 Refills, Maintenance, 10/14/20 15:35:00 EDT, Tablet, [facility] 3, Partial fill upon patient [...] MESH BARD 6.6X6.6IN 15X15 CM - BARD ([id number]) 1 Bard Unknown GARO:No Information Assigning Authority: FDA
--- OUTSIDE RECORDS SUMMARY | 2023-10-30 07:26 | XMS_ITS | Continuity of Care Document ---
Author Organization [facility] ter Address [address] [place] [address]- Care Team Providers Care Survey Questionnaire Designer Name Role Phone Ro Janak RODRIGUEZ Primary Care Physician Encounter [facility] [place] Date(s): 06/13/22 - 06/13/[address] [address]- Encounter Diagnosis Bleeding from right ear(Final) - 06/13/22 Discharge Disposition: A-D/C Home Attending Physician: Chemo [...] 06/24/21 15:16:00 EDT, Route to Pharmacy Electronically, [facility]/pharmacy #[id number], Partial fill upon patient request if the prescription is for a schedule II o... Start Date: 06/24/21 Status: Ordered carvedilol 6.25 mg oral tablet 1, tablet, By Mouth, 2 times a day, # 180 tablet, Refills 3, Maintenance, 12/19/21 8:35:00 EST, Route to Pharmacy Electronically, [facility] STORE 11483, 162.56, cm, 06/16/21 8:16:00 EDT, Height, 116.8, [...] DAY Start Date: 05/11/22 Status: Ordered Evening [place] 4 gelcaps, By Mouth, Daily, 0 Refills, [...] 0 Refills, Maintenance, 10/14/20 15:35:00 EDT, Tablet, [facility] 3, Partial fill upon patient request if [...] Exam Date Time Procedure Performing Provider Status 06/13/22 12:53 PM Chest 2 Views Frontal and Lat Brianne Zimmer; Auth (Verified) Notes: (Chest 2 Views Frontal and Lat) Reason For Exam: Shortness of Breath RESULT: Chest 2 Views Frontal and Lat Chest 2 Views Frontal and Lat Hx of Present Illness: Called Dr clemons L ear bleeding with increased R ear pain and mild pressure headache and SOB. Reports treated for ear infection with doxycycline x weeks Pt reports does takecoumadin for DVt. Insulin pump in place with quick glucose monitoring.; Reason: Shortness of Breath; Clinical Question(s): Pulmonary Embolism COMPARISON: 05/05/2022 FINDINGS: LINES AND TUBES: None. LUNGS AND PLEURA: Clear lungs. Normal pulmonary vascularity. No pleural effusion. No pneumothorax. HEART, MEDIASTINUM AND MICHAELA: Heart is normal in size. Normal mediastinal and hilar contour. BONES AND SOFT TISSUES: No acute abnormality. IMPRESSION: No acute abnormality. WSN: [id number] Ordering Physician: Bhavin Hoang Dictated By: Minh Mary MD Dictated Date/Time: 06/13/22 12:57 p Reviewed By: Minh Mary MD Signed By: Minh aMry MD Signed Date/Time: 06/13/22 12:57 pm Transcribed By: LINDA Transcribed Date/Time: 06/13/22 12:57 pm Vital Signs Most recent to oldest [Reference Range]: 1 2 3 Height 163 cm (06/13/22 12:05 PM) Weight 118 kg (06/13/22 12:05 PM) Oxygen Saturation [94-100 %] 97 % (06/13/22 3:09 PM) 97 % (06/13/22 12:05 PM) 97 % (06/13/22 11:37 AM) Pulse Rate [55-90 bpm] 72 bpm (06/13/22 3:09 PM) 65 bpm (06/13/22 12:05 PM) 70 bpm (06/13/22 11:37 AM) Blood Pressure [90-138/55-84 mm Hg] 137/62mm Hg (06/13/22 3:09 PM) 128/70mm Hg (06/13/22 12:05 PM) Respiratory Rate [16-30 br/min] 18 br/min (06/13/22 3:09 PM) 18 br/min (06/13/22 12:05 PM) 16 br/min (06/13/22 11:37 AM) Temperature [96.8-100.4 DegF] 98.3 DegF (06/13/22 3:09 PM) 97.9 DegF (06/13/22 12:05 PM) Mode of Delivery (Oxygen) Room air (06/13/22 3:09 PM) Room air (06/13/22 12:05 PM) Room air (06/13/22 11:37 AM) Blood pressure sites Arm, left (06/13/22 3:09 PM) Arm, left (06/13/22 12:05 PM) Temperature Route Oral (06/13/22 3:09 PM) Oral (06/13/22 12:05 PM) Dry Weight 118 kg (06/13/22 12:05 PM) Social History Social History Type Response [...] Unknown Unknown Active Un known Note * Zac RODRIGUEZ, Chemo C: PERFORM, SIGN, VERIFY Event Display: Patient Education Handout Authored Date: [id number] * BHSPowerscribe , CIS S: TRANSCRIBE Minh Mary MD: VERIFY Event Display: Result: Authored Date: [id number] Chest 2 Views Frontal and Lat Hx of Present Illness: Called Dr clemons L ear bleeding with increased R ear pain and mild pressure headache and SOB. Reports treated for ear infection with doxycycline x weeks Pt reports does takecoumadin for DVt. Insulin pump in place with quick glucose monitoring.; Reason: Shortness of Breath; Clinical Question(s): Pulmonary Embolism COMPARISON: 05/05/2022 FINDINGS: LINES AND TUBES: None. LUNGS AND PLEURA: Clear lungs. Normal pulmonary vascularity. No pleural effusion. No pneumothorax. HEART, MEDIASTINUM AND MICHAELA: Heart is normal in size. Normal mediastinal and hilar contour. BONES AND SOFT TISSUES: No acute abnormality. IMPRESSION: No acute abnormality. WSN: [id number] Ordering Physician: Bhavin Hoang Dictated By: Minh Mary MD Dictated Date/Time: 06/13/22 12:57 p Reviewed By: Minh Mary MD Signed By: Minh Mayr MD Signed Date/Time: 06/13/22 12:57 pm Transcribed By: CSJelani Transcribed Date/Time: 06/13/22 12:57 pm Patient Care team information Care Team Personnel Name: Deyanira Holden Position: [facility] Onco RN Member Role: Primary Care Nurse Name: Linda Harris RN Position: [facility] SN RN Member Role: Primary Care Nurse Name: Janak Greer MD Position: [facility] Physician (General Medicine) Member Role: PCP Address: Address: [address] [place] [address] Name: Tammy Montelongo RN Position: [facility] SN RN Member Role: Primary Care Nurse Name: Mima Robert RN Position: [facility] ED RN W/OE and Tasks Member Role: Patient Care Provider Name: Chemo Frank MD Position: [facility] ED Medicine MD Member Role: Admitting Physician Address: Address: [address] [place] [address] [place] [address]- Care Team Related Persons Name: DANIELA GRAY Address: home [address] [place] [address] Name: JASMINE VILLAR Address: home [address] [place] [address]
--- OUTSIDE RECORDS SUMMARY | 2023-10-30 07:26 | XMS_ITS | Continuity of Care Document ---
Author Organization [facility] ter Address [address] [place] [address]- Care Team Providers Care Charter Pilot Name Role Phone Janak Greer MD Primary Care Physician [phone] Encounter [facility] Date(s): 03/03/21 - 04/02/[address] [address] Attending Physician: Janak Greer MD Admitting [...] EDT Start Date: 05/13/19 Status: Ordered Evening [place] 4 gelcaps, By Mouth, Daily, 0 Refills, [...] Refills, Maintenance, 10/14/20 15:35:00 EDT, Tablet, [facility] 3, Partial fill upon patient [...] Model MESH BARD 6.6X6.6IN 15X15 CM - [employer] ([id number]) 1 Bard Unknown GARO:No Information Assigning Authority: FDA
--- OUTSIDE RECORDS SUMMARY | 2023-10-30 07:26 | XMS_ITS | Continuity of Care Document ---
Author Organization [facility] Address [address] [place] [address]- Care Team Providers Care Enterprise Solutions Architect Name Role Phone Ro Janak RODRIGUEZ Primary Care Physician Encounter [facility] ACCT R [id number] Date(s): 11/26/21 - 12/26/21 [facility] [address] [place] [id number] Attending Physician: Herminio Myles Admitting Physician: AdmHerminio [...] 06/24/21 15:16:00 EDT, Route to Pharmacy Electronically, [facility]/pharmacy #[id number], Partial fill upon patient request if the prescription is for a schedule II o... Start Date: 06/24/21 Status: Ordered carvedilol 6.25 mg oral tablet 1, tablet, By Mouth, 2 times a day, # 180 tablet, Refills 3, Maintenance, 12/19/21 8:35:00 EST, Route to Pharmacy Electronically, [id number], 162.56, cm, 06/16/21 8:16:00 EDT, Height, 116.8, kg,10/14/20 13:50:00 EDT, Dry Weight Start Date: 12/19/21 Status: Ordered Centrum Silver 1 tab, By Mouth, Daily, 0 Refills, Maintenance, 02/14/16 20:44:22 EST Start Date: 02/14/16 Status: Ordered clonazePAM 0.5 mg oral tablet 1 tablet = 0.5 mg, By Mouth, 3 times a day, 0 Refills, Maintenance, 05/13/19 15:05:00 EDT Start Date: 05/13/19 Status: Ordered Evening [place] 4 gelcaps, By Mouth, Daily, 0 Refills, [...] 0 Refills, Maintenance, 10/14/20 15:35:00 EDT, Tablet, [facility], Partial fill upon patient request if the prescription is for a schedule II opioi... 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 Severe obesity Confirmed Active Social [...] Care Team Personnel Name: Deyanira Holden Position: [facility] Onco RN Member Role: Primary Care Nurse Name: Linda Harris RN Position: [facility] SN RN Member Role: Primary Care Nurse Name: Janak Greer MD Position: [facility] Physician (General Medicine) Member Role: PCP Address: Address: [address] [place] [id number] [place] [address] Name: Tammy Montelongo RN Position: [facility] SN RN Member Role: Primary Care Nurse Care Team Related Persons Name: ISAAC, KASOLANGEEFREM Address: home [address] [place] [address] Name: JASMINE VILLAR Address: home [address] [place] [address]
--- OUTSIDE RECORDS SUMMARY | 2023-10-30 07:26 | XMS_ITS | Continuity of Care Document ---
Author Organization [facility] Address [address] [place] [address]- Care Team Providers Care Golf Course Keeper Name Role Phone Ro Janak RODRIGUEZ Primary Care Physician Encounter [facility] Date(s): 02/14/23 - 03/16/23 [facility] [address] [place] [id number] Attending Physician: Herminio Myles Admitting Physician: Herminio Myles Referring Physician: Herminio Myles Referring Physician: Kiersten Glover Allergies, Adverse Reactions, Alerts No Known Allergies [...] 02/17/23 8:28:00 EST, Route to Pharmacy Electronically, [facility]/pharmacy #[id number], Partial fill upon patient request if the prescr... Start Date: 02/17/23 Stop Date: 02/12/24 Status: Ordered carvedilol 6.25 mg oral tablet 1, tablet, By Mouth, 2 times a day, # 180 tablet, Refills 3, Tot. Refills 3, Maintenance, 12/27/22 13:18:00 EST, Route to Pharmacy Electronically, [facility]/pharmacy #[id number], 163, cm, 08/23/22 9:04:00 EDT, Height, 120.5, kg, 07/26/22 15:18:00 EDT, Dry Weight Start Date: 11/14/23 Status: Ordered Centrum Silver 1 tab, By [...] DAY Start Date: 05/11/22 Status: Ordered Evening [place] 4 gelcaps, By Mouth, Daily, 0 Refills, [...] 0 Refills, Maintenance, 03/09/23 15:49:00 EST, Solution, [facility]/pharmacy #[id number], 164, cm, 02/17/23 8:01:00 [...] tablet, 0 Refills, Maintenance, 07/26/22 19:09:00 EDT, [facility]/pharmacy #[id number], Partial fill upon patient [...] 0 Refills, Maintenance, 10/14/20 15:35:00 EDT, Tablet, [facility], Partial fill upon [...] Care Team Personnel Name: Deyanira Holden Position: [facility] Onco RN Member Role: Primary Care Nurse Name: Linda Harris RN Position: [facility] SN RN Member Role: Primary Care Nurse Name: Janak Greer MD Position: [facility] Physician - Primary Care Member Role: PCP Address: Address: [address] [place] [id number] [place] [address] Name: Tammy Montelongo RN Position: [facility] SN RN Member Role: Primary Care Nurse Care Team Related Persons Name: JADA GRAYSJ Address: home [address] [place] [address] Name: JASMINE VILLAR Address: home [address] [place] [address]
--- OUTSIDE RECORDS SUMMARY | 2023-10-30 07:26 | XMS_ITS | Continuity of Care Document ---
Author Organization [facility] Address [address] [place] [address]- Care Team Providers Care Stone Sandblaster Name Role Phone Janak Greer MD Primary Care Physician Encounter [facility] ACCT [facility] [id number] Date(s): 05/24/21 - 06/23/21 [facility] [address] [place] [address]- Attending Physician: Herminio Myles Admitting Physician: AdmtrHerminio [...] 05/24/21 17:59:00 EDT, Route to Pharmacy Electronically, [facility], Partial fill upon [...] EDT Start Date: 05/13/19 Status: Ordered Evening [place] 4 gelcaps, By Mouth, Daily, 0 Refills, [...] 0 Refills, Maintenance, 10/14/20 15:35:00 EDT, Tablet, [facility], Partial fill upon [...] MESH BARD 6.6X6.6IN 15X15 CM - BARD ([id number]) 1 Bard Unknown GARO:No Information Assigning Authority: FDA
--- OUTSIDE RECORDS SUMMARY | 2023-10-30 07:27 | XMS_ITS | Continuity of Care Document ---
Author Organization [facility] Address [address] [place] [address]- Care Team Providers Care House Carpenter Name Role Phone Ro Janak RODRIGUEZ Primary Care Physician Encounter [facility] ACCT R [id number] Date(s): 06/05/23 - 07/05/23 [facility] [address] [place] [id number] Allergies, Adverse Reactions, Alerts No [...] 02/17/23 8:28:00 EST, Route to Pharmacy Electronically, [facility]/pharmacy #[id number], Partial fill upon patient request if the prescr... Start Date: 02/17/23 Stop Date: 02/12/24 Status: Ordered carvedilol 6.25 mg oral tablet 1, tablet, By Mouth, 2 times a day, # 180 tablet, Refills 3, Tot. Refills 3, Maintenance, 12/27/22 13:18:00 EST, Route to Pharmacy Electronically, [facility]/pharmacy #[id number], 163, cm, 08/23/22 9:04:00 EDT, Height, [...] DAY Start Date: 05/11/22 Status: Ordered Evening [place] 4 gelcaps, By Mouth, Daily, 0 Refills, [...] 3 Refills, Maintenance, 07/05/23 7:50:00 EDT, Solution, [facility]/pharmacy #[id number], 164, cm, 05/22/23 15:09:00 EDT, Height, [...] 0 Refills, Maintenance, 07/26/22 19:09:00 EDT, [facility]/pharmacy #[id number], Partial fill upon patient request if [...] 0 Refills, Maintenance, 10/14/20 15:35:00 EDT, Tablet, [facility], Partial fill upon patient [...] Care Team Personnel Name: Deyanira Holden Position: [facility] Onco RN Member Role: Primary Care Nurse Name: Linda Harris RN Position: [facility] SN RN Member Role: Primary Care Nurse Name: Janak Greer MD Position: [facility] Physician - Primary Care Member Role: PCP Address: Address: [address] [place] [address] Name: Tammy Montelongo RN Position: [facility] SN RN Member Role: Primary Care Nurse Care Team Related Persons Name: DANIELA GRAY Address: home [address] [place] [address] Name: JASMINE VILLAR Address: home [address] [place] [address]
--- OUTSIDE RECORDS SUMMARY | 2023-10-30 07:27 | XMS_ITS | Continuity of Care Document ---
Author Organization [facility] Address [address] [place] [address]- Care Team Providers Care Log Rafter Name Role Phone Janak Greer MD Primary Care Physician [phone] Encounter [facility] Date(s): 08/08/23 - 08/08/[address] [address] Discharge Disposition: A-D/C Home Attending Physician: Hernandez Cee MD Admitting Physician: Hernandez Cee MD Referring Physician: Hernandez Cee MD Allergies, Adverse Reactions, Alerts No Known [...] 8:28:00 EST, Route to Pharmacy Electronically, [facility]/pharmacy #[id number], Partial fill upon patient request if the prescr... Start Date: 02/17/23 Stop Date: 02/12/24 Status: Ordered carvedilol 6.25 mg oral tablet 1, tablet, By Mouth, 2 times a day, # 180 tablet, Refills 3, Tot. Refills 3, Maintenance, 12/27/22 13:18:00 EST, Route to Pharmacy Electronically, [facility]/pharmacy #[id number], 163, cm, 08/23/22 9:04:00 EDT, Height, [...] 3 Refills, Maintenance, 07/05/23 7:50:00 EDT, Solution, [facility]/pharmacy #[id number], 164, cm, 05/22/23 15:09:00 EDT, Height, [...] Active Type 2 diabetes mellitus Confirmed Active Vital Signs Most recent to oldest [Reference Range]: 1 2 3 Weight 117.8 kg (08/08/23 12:39 PM) Oxygen Saturation [94-100 %] 94 % (08/08/23 4:00 PM) 94 % (08/08/23 3:45 PM) 94 % (08/08/23 3:30 PM) Pulse Rate [55-90 bpm] 63 bpm (08/08/23 12:39 PM) Blood Pressure [90-138/55-84 mm Hg] 126/70mm Hg (08/08/23 4:00 PM) 156/73mm Hg *H* (08/08/23 3:45 PM) 153/75mm Hg *H* (08/08/23 3:30 PM) Respiratory Rate [16-30 br/min] 10 br/min *L* (08/08/23 4:00 PM) 19 br/min (08/08/23 3:45 PM) 17 br/min (08/08/23 3:30 PM) Temperature [96.8-100.4 DegF] 97.2 DegF (08/08/23 4:15 PM) 97.6 DegF (08/08/23 2:15 PM) 97.2 DegF (08/08/23 12:39 PM) Liters per Minute 6 L/min (08/08/23 2:45 PM) 6 L/min (08/08/23 2:38 PM) 6 L/min (08/08/23 2:15 PM) Mode of Delivery (Oxygen) Room air (08/08/23 4:15 PM) Room air (08/08/23 4:00 PM) Room air (08/08/23 3:45 PM) Blood pressure sites Arm, left (08/08/23 12:39 PM) Temperature Route Temporal (08/08/23 4:15 PM) Temporal (08/08/23 2:15 PM) Temporal (08/08/23 12:39 PM) Dry Weight 117.8 kg (6/25/24 12:39 PM) Weight Obtained Via Standing scale (08/08/23 12:39 PM) Dry Weight Obtained Via Standing scale (08/08/23 12:39 PM) Social History Social History Type Response [...] Display: History and Physical Hospital Authored Date: [id number] Note * Marizol Hernandez RN: PERFORM Event Display: Discharge/Transfer Note Hospital Authored Date: [id number] Nursing Discharge Note Entered On: 08/08/2023 16:58 EDT Performed On: 08/08/2023 16:58 EDT by Marizol Hernandez RN Nursing Discharge Note 2 Discharge Time : 08/08/2023 16:19 EDT Discharge Level of Care at Discharge : Home/Fdc/Foster Care Patient Left Unit Via : Wheelchair Patient Accompanied Off Unit with : Responsible adult DC Instructions Provided & Signed by Pt : Yes Patient Understands D/C Instructions : Yes Patient Instructions Discharge Signed : Yes Did Pt have Specialty Bed or Wound Vac : No Marizol Hernandez RN - 08/08/2023 16:58 EDT * Marizol Hernandez RN: PERFORM Event Display: Patient Education/Instruction Authored Date: [id number] Surgery Adult Discharge Instructions [address] [address] Name: CHEVY WOLF : 1960?? Visit: 08/08/2023 10:52?? Current Date: 08/08/2023 15:27 ?? Account: [id number]?? Surgery Discharge Instructions We would like to thank you for allowing us to assist you with your healthcare needs. The following includes patient education materials and information regarding your injury/illness. Our entire staffstrives to provide an excellent experience for our patients and their families. PLEASE ENSURE YOU FOLLOW-UP PER THE INSTRUCTIONS BELOW! ?? YOUR OPINION IS IMPORTANT TO US! Please complete the survey you may receive by mail or email. Your feedback will be used to make improvements to the healthcare experiences of our patients and their families. Surveys are administered by [employer] ?? If further treatment with your primary care physician or another doctor is recommended, it is important for you to keep the appointment. Call your primary care physician or return to the Emergency Department immediately if your condition worsens, fails to improve, or new symptoms develop. If you need to find a doctor, you can call [facility] [employer] for a referral at [phone] or toll free at [phone] ([phone]) or log in to [email or web address].. ?? [facility], in keeping with [facility] guidance, no longer requires face masks [...] medical provider or home test kit. ?? You can view and manage your care through the patient portal or by using a health care qi of your choosing. [facility] is a website that allows you to securely view your medical information including your hospital discharge summary, office visit summaries, medications and follow-up visits. You can also request appointments, renew medications, and request access to your medical information using a health care qi of your choosing, or just ask a question. You are entitled to know the individuals who participated in your treatment. This information is available within your medical record and will be provided upon your request. You can enroll at [email or web address] or register d uring your next office visit. You have been discharged from [facility], Patient Care Unit: [facility]??. If you have any questions regarding these instructions after you leave, please call us and we will be happy to assist you. [facility] Your Care Team Attending Physician Hernandez Cee MD?? Discharging Providers Hernandez Cee MD Reason for Admission CHRONIC SINUSITISDS CS Primary Care Provider Janak Greer MD? Advance Directive Health Care Proxy on File Yes - Health Care Proxy What to do next Instructions From Your Doctor ?? Orders?? Unit Discharge Criteria Met, ??use saline 4 times daily.Acetaminophen and ibuprofen for pain. ??Prescription for Augmentin sent to her pharmacy., ??08/08/23 14:14:00 EDT?? Instructions from your Care Team -use saline 4 times daily. -may take Tylenol??(Acetaminophen) for pain, last??dose given at 3:00PM, next dose can be taken at 9:00PM. Please follow bottle instructions?? -may take??ibuprofen for pain as needed,??please follow bottle instructions -Prescription for Augmentin sent to your??pharmacy, please take as prescribed.?? Scheduled Follow-Up Appointments Monday 10:40 AM EDT ?? With: Leonardo RODRIGUEZ, Stewart Avila Where: [facility] [address] [place] [address]- Status: Pending 2023 10:10 AM EDT ?? With: Lars RODRIGUEZ, [facility] Where: [facility] [address] [place] [address]- Status: Pending 2023 10:00 AM EDT ?? Where: Diabetic Teaching Status: Pending You Need to Schedule the Following Appointments Follow Up with??Jaye RODRIGUEZ, Hernandez Sales Where: [address] [place] [address] [facility] [address]- Discharge Medications CHEVY WOLF :1960 Visit Date:08/08/2023 Medications: Please continue your medications until treatment is completed or stopped by your provider. You may resume your daily prescription medications. Discuss any questions related to medications with your provider. What How Much When Instructions Next Dose Unchanged Albuterol (Ventolin HFA 108 mcg/ inh inhalationaerosol with adapter) 2 puff(s) Inhalation 4 times a day as needed for for wheezing Unchanged apixaban (Eliquis 5 mg oral tablet) 1 tab(s) Oral Twice a day hold until monday after appointment Unchanged Atorvastatin (atorvastatin 80 mg oral tablet) [...] Daily at Bedtime as needed for Insomnia Allergies (NKA means No Known Allergies) NKA Education Materials Below is the list of Educational Leaflet Providered with your Discharge Instructions. [employer] Patient Education - Surgery Medical Daystay Surgical Overnight Discharge Instructions?? [employer] Patient Education - ??NSAID Analgesic Schedule?? Valuables and Belongings I fully understand and agree that [facility] accepts no responsibility for all my personal property including clothing, toilet articles, radios, jewelry, dentures, hearing aids, rings, money, or any other property that is in my possession or is brought to me after admission. I understand certain valuables may be placed in a hospital safe for a short period of time. I understand that the hospital is not liable for loss or damage due to accident, fire, or other natural occurrence while said property is in the safe. I accept full responsibility for any personal property that I keep with me, and will not hold the hospital responsible in case of loss or disappearance. I acknowledge that i have been encouraged to send valuables and belongings home. ?? Review of Valuable and Belonging List: With patient Date for Pt to Sign Valuables/Belongings: 08/08/23 12:39:00 ?? Valuables & Belongings ?? Clothes Electronic devices Jewelry Monetary Items Personal devices Miscellaneous Medications (Valuables) Valuables at Bedside Pants, Shirt, Shoes, Undergarments ? Glasses ? Valuables Sent Home ? Valuables Sent to Security ? Other Discharge Information ? Pulmonary Rehab Status?? Pulmonary Rehab Discharge Status?? Respiratory Rate: 17 br/min ? Common Emergency Awareness Tips IS IT A [...] are strongly encouraged to quit. Please call [facility] [employer] at [phone] or [phone] ([phone]) or log in to [email or web address] for referrals to smoking cessation programs. ?? The National Suicide Prevention Hotline is available 05/09 if you or someone you know needs to find a reason to keep living. By calling 6-617-979-[employer] (8287) you'll be connected to a skilled, trained counselor at a crisis center in your area. SURGERY DISCHARGE INSTRUCTIONS SIGNATURE PAGE CHEVY WOLF Location:[facility] Registration Date and Time:08/08/2023 10:52 EDT Primary Care Physician: Zoey RODRIGUEZ, Janak Coffey, Attending Physician: Jaye RODRIGUEZ, Hernandez Sales, I CHEVY WOLF, have received the above patient education materials/instructions and have verbalized understanding. If ambulance or transport services are being used I further acknowledge being given a choice of service. ?? If you need to contact me, please call me at this number: . Patient/Shower Enclosure Installer Name: Patient/Shower Enclosure Installer Signature: Relationship to Patient: Witness Name/Signature: Date: * Marizol Hernandez RN: PERFORM Event Display: Patient Education Leaflets Authored Date: [id number] Surgery Medical Daystay Surgical Overnight Discharge Instructions ?? 295 Medical Daystay/Surgical Overnight Discharge Instructions ? Since your coordination and judgment may be altered by medication and/or anesthesia, a responsible adult must drive you home from the hospital. ? If you have received medication for pain or sedation while under our care, you should not drive, operate machinery, drink alcohol, or sign any legal documents for 24 hours.?? You should have someone with you at home tonight. ? Remain at home the day of discharge.?? You may be up and about unless otherwise instructed by your physician. ? You may resume your daily prescription medication schedule.?? Any depressant medication should be avoided for 24 hours unless otherwise instructed by your surgeon or anesthesiologist. ? Call your physician for a follow-up appointment.? If you experience unusual or severe pain not relied by your pain medication, excessive bleedingor drainage, persistent nausea and vomiting, excessive swelling or redness, foul odor from incisionsite or fever over 100.6F, you need to call your physician. ? A follow-up phone call by a nurse will be made the day after your procedure.?? If you have stayed with us over night, you will not be receiving a follow-up phone call. ? Nausea and vomiting are a common side effect of prescription pain medication.?? We recommend that pills are not taken on an empty stomach.?? While taking any prescription pain medication you should not drive or drink alcohol. ? * David WYLIE, Marizol: PERFORM Event Display: Patient Education Leaflets Authored Date: [id number] NSAID Analgesic Schedule ?? 604 NSAID???s Analgesic Schedule ?? Pain is the primary source of illness following your procedure and can include dehydration, difficulty and painful swallowing, and weight loss. These symptoms can lead to increased post-operative visits and hospital readmission. The best way to control pain is to take pain medications regularly. Your doctor has recommended both Ibuprofen and Acetaminophen (generic/store brands are okay, too). These can be picked up over the counter at your pharmacy of choice. Follow the instructions on the bottle to determine the proper dosage to give. The simplest way to take these medications it to rotate the two at 3-hour intervals. Here is a sample diagram. The time you take your medications may vary from this example. Do not give Ibuprofen more than every 6 hours or Acetaminophen every 4 hours. Do not give Acetaminophen if your doctor has given you a prescription that contains Acetaminophen. ? Patient Care team information Care Team Personnel Name: Deyanira Holden Position: [facility] Onco RN Member Role: Primary Care Nurse Name: Linda Harris RN Position: [facility] SN RN Member Role: Primary Care Nurse Name: Janak Greer MD Position: [facility] Physician - Primary Care Member Role: PCP Address: Address: [address] [place] [address] Name: Tammy Montelongo RN Position: [facility] RN Member Role: Primary Care Nurse Care Team Related Persons Name: DANIELA GRAY Address: home [address] [place] [address] Name: JASMINE VILLAR Address: home [address] [place] [address]
--- OUTSIDE RECORDS SUMMARY | 2023-10-30 07:27 | XMS_ITS | Continuity of Care Document ---
Author Organization [facility] Address [address] [place] [address]- Care Team Providers Care Field Engineer Name Role Phone Ro Janak RODRIGUEZ Primary Care Physician [phone] [facility] [place]22 - 10/14/22 [facility] [address] [place] [address]- Attending Physician: Stewart Patterson MD Allergies, Adverse Reactions, Alerts No Known [...] 12/19/21 8:35:00 EST, Route to Pharmacy Electronically, [facility] STORE 47730, 162.56, cm, 06/16/21 8:16:00 EDT, Height, 116.8, [...] DAY Start Date: 05/11/22 Status: Ordered Evening [place] 4 gelcaps, By Mouth, Daily, 0 Refills, [...] tablet, 0 Refills, Maintenance, 07/26/22 19:09:00 EDT, [facility]/pharmacy #[id number], Partial fill [...] 0 Refills, Maintenance, 10/14/20 15:35:00 EDT, Tablet, [facility], Partial fill upon patient [...] Care Team Personnel Name: Deyanira Holden Position: [facility] Onco RN Member Role: Primary Care Nurse Name: Linda Harris RN Position: [facility] SN RN Member Role: Primary Care Nurse Name: Janak Greer MD Position: [facility] Physician - Primary Care Member Role: PCP Address: Address: [address] [place] [address] Name: Tammy Montelongo RN Position: [facility] SN RN Member Role: Primary Care Nurse Care Team Related Persons Name: DANIELA GRAY Address: home [address] [place] [address] Name: JASMINE VILLAR Address: home [address] [place] [address]
--- OUTSIDE RECORDS SUMMARY | 2023-10-30 07:27 | XMS_ITS | Continuity of Care Document ---
Author Organization [facility] Address [address] [place] [address]- Care Team Providers Care Aircraft Maintenance Engineer Name Role Phone Janak Greer MD Primary Care Physician En[place] [facility] [place] Date(s): 04/10/19 - 04/20/19 [facility] [address] [place] [address]- [facility] Attending Physician: Herminio Myles Admitting Physician: Herminio Myles Referring Physician: AdmtrHerminio Allergies, Adverse Reactions, Alerts Substance Reaction Severity [...] 02/14/16 20:44:22 Start Date: 02/14/16 Status: Ordered Cinnamon = 1,000 mg, By Mouth, Daily, 0 Refills, Maintenance, 02/15/16 8:04:39 Start Date: 02/15/16 Status: Ordered Cymbalta Capsule = 100 mg, By Mouth, Daily, 0 Refills, Maintenance, 02/14/16 20:42:10 Start Date: 02/14/16 Status: Ordered docusate sodium 100 mg oral capsule 100 mg, 1, capsule, By Mouth, 2 times a day, PRN, with plenty of water, # 14 capsule, Refills 0, Tot. Refills 0, Maintenance, for constipation, 12/27/17 10:57:55 EST, Print Requisition Start Date: 12/27/17 Stop Date: 01/03/18 Status: Ordered glipiZIDE 5 mg oral tablet, extended release See Instructions, 2 tabs 2xdaily, 0 Refills, Maintenance, 02/15/16 8:02:33 EST Start Date: 02/15/16 Status: Ordered Januvia 25 mg oral tablet 2 tab, By Mouth, Daily, 0 Refills, Maintenance, 12/18/17 16:12:05 EST Start Date: 12/18/17 Status: Ordered lisinopril 10 mg oral tablet 10 mg, 1, tablet, By Mouth, Daily, for kidney protection, # 30 tablet, Refills 0, Maintenance, 12/18/17 16:13:36 EST Start Date: 12/18/17 Status: Ordered lorazepam 1 mg oral tablet 1 tablet = 1 mg, By Mouth, 3 times a day, PRN for anxiety, # 12 tablet, 0 Refills, Maintenance, Tablet Start Date: 12/01/11 Status: Ordered metFORMIN 500 mg oral tablet, extended release 4 tablet = 2,000 mg, By Mouth, Daily at bedtime, 0 Refills, Maintenance, 02/15/16 8:03:36 Start Date: 02/15/16 Status: Ordered Restasis 1 drops, Eyes, Both, Every 12 hours, 0 Refills, Maintenance, 02/15/16 8:04:10 Start Date: 02/15/16 Status: Ordered Topamax 50 mg oral tablet 1 tablet = 50 mg, By Mouth, 2 times a day, 0 Refills, Maintenance Start Date: 02/13/12 Status: Ordered Vitamin D3 1000 intl units oral tablet 1 tablet = 1,000 International_Units, By Mouth, Daily, 0 Refills, Maintenance, 02/15/16 8:04:29 Start Date: 02/15/16 Status: Ordered Problem List Condition Effective Dates [...] MESH BARD 6.6X6.6IN 15X15 CM - BARD ([id number]) 1 Bard Unknown GARO:No Information Assigning Authority: FDA
--- OUTSIDE RECORDS SUMMARY | 2023-10-30 07:27 | XMS_ITS | Continuity of Care Document ---
Author Organization [facility] Address [address] [place] [address]- Care Team Providers Care Linen Supply Load Builder Name Role Phone Ro Janak RODRIGUEZ Primary Care Physician [phone] [place] [facility] [place] 06/30/23 - 07/30/23 [facility] and Diabetes [address] [place] [address] Allergies, Adverse Reactions, Alerts No Known [...] 02/17/23 8:28:00 EST, Route to Pharmacy Electronically, [facility]/pharmacy #[id number], Partial fill upon patient request if the prescr... Start Date: 02/17/23 Stop Date: 02/12/24 Status: Ordered carvedilol 6.25 mg oral tablet 1, tablet, By Mouth, 2 times a day, # 180 tablet, Refills 3, Tot. Refills 3, Maintenance, 12/27/22 13:18:00 EST, Route to Pharmacy Electronically, [facility]/pharmacy #1130, 163, cm, [...] DAY Start Date: 05/11/22 Status: Ordered Evening [place] 4 gelcaps, By Mouth, Daily, 0 Refills, [...] 3 Refills, Maintenance, 07/05/23 7:50:00 EDT, Solution, [facility]/pharmacy #1130, 164, cm, 05/22/23 15:09:00 EDT, Height, [...] tablet, 0 Refills, Maintenance, 07/26/22 19:09:00 EDT, [facility]/pharmacy #[id number], Partial fill [...] Maintenance, 10/14/20 15:35:00 EDT, Tablet, [facility], Partial fill upon patient request [...] Care Team Personnel Name: Deyanira Holden Position: [facility] Onco RN Member Role: Primary Care Nurse Name: Linda Harris RN Position: [facility] SN RN Member Role: Primary Care Nurse Name: Janak Greer MD Position: [facility] Physician - Primary Care Member Role: PCP Address: Address: [address] [place] [address] Name: Tammy Montelongo RN Position: [facility] SN RN Member Role: Primary Care Nurse Care Team Related Persons Name: DANIELA GRAY Address: home [address] [place] [address] Name: JASMINE VILLAR Address: home [address] [place] [address]
--- OUTSIDE RECORDS SUMMARY | 2023-10-30 07:27 | XMS_ITS | Continuity of Care Document ---
Author Organization [facility] Address [address] [place] [address]- Care Team Providers Care Operations Executive Name Role Phone Janak Greer MD Primary Care Physician Encounter [facility] [place] Date(s): 05/05/21 - 06/04/21 [facility] [address] [place] [address]- [place] Allergies, Adverse Reactions, Alerts No Known Allergies Medications atorvastatin 80 mg oral tablet 1 tablet = 80 mg, By Mouth, Daily at bedtime, 0 Refills, Maintenance Start Date: 02/13/12 Status: Ordered carvedilol 6.25 mg oral tablet 6.25 mg, 1, tablet, By Mouth, 2 times a day, # 60 tablet, Refills 1, Tot. Refills 1, Maintenance, 05/24/21 17:59:00 EDT, Route to Pharmacy Electronically, [facility], Partial fill upon patient [...] EDT Start Date: 05/13/19 Status: Ordered Evening [place] 4 gelcaps, By Mouth, Daily, 0 Refills, [...] 0 Refills, Maintenance, 10/14/20 15:35:00 EDT, Tablet, [facility], Partial fill upon patient [...] Model MESH BARD 6.6X6.6IN 15X15 CM - [place] ([id number]) 1 Bard Unknown GARO:No Information Assigning Authority: FDA
--- OUTSIDE RECORDS SUMMARY | 2023-10-30 07:27 | XMS_ITS | Continuity of Care Document ---
Author Organization [facility] Address [address] [place] [address]- Care Team Providers Care Inorganic Chemist Name Role Phone Ro Janak RODRIGUEZ Primary Care Physician [phone] [facility] [id number] Date(s): 12/06/21 - 01/05/22 [facility] [address] [place], [place] [address] Attending Physician: Herminio Myles Admitting [...] 06/24/21 15:16:00 EDT, Route to Pharmacy Electronically, [facility]/pharmacy #1130, Partial fill upon patient request if the prescription is for a schedule II o... Start Date: 06/24/21 Status: Ordered carvedilol 6.25 mg oral tablet 1, tablet, By Mouth, 2 times a day, # 180 tablet, Refills 3, Maintenance, 12/19/21 8:35:00 EST, Route to Pharmacy Electronically, [facility]ORE 38921, 162.56, cm, 06/16/21 8:16:00 EDT, Height, 116.8, kg,10/14/20 13:50:00 EDT, Dry Weight Start Date: 12/19/21 Status: Ordered Centrum Silver 1 tab, By Mouth, Daily, 0 Refills, Maintenance, 02/14/16 20:44:22 EST Start Date: 02/14/16 Status: Ordered clonazePAM 0.5 mg oral tablet 1 tablet = 0.5 mg, By Mouth, 3 times a day, 0 Refills, Maintenance, 05/13/19 15:05:00 EDT Start Date: 05/13/19 Status: Ordered Evening [place] 4 gelcaps, By Mouth, Daily, 0 Refills, [...] 0 Refills, Maintenance, 10/14/20 15:35:00 EDT, Tablet, [facility], Partial fill upon patient [...] (General Medicine) Member Role: PCP Address: Address: [address] [place] [address] Name: Tammy Montelongo RN Position: [facility] SN RN Member Role: Primary Care Nurse Care Team Related Persons Name: DANIELA GRAY Address: home [address] [place] [address] Name: JASMINE VILLAR Address: home [address] [place] [address]
--- OUTSIDE RECORDS SUMMARY | 2023-10-30 07:27 | XMS_ITS | Continuity of Care Document ---
Author Organization [facility] Address [address] [facility], [facility] [address] [place] [address]- Care Team Providers Care Mail Distribution Scheme Examiner Name Role Phone Ro Janak RODRIGUEZ Primary Care Physician [phone] Encounter 07/28/22 - 01/16/23 [facility] [address], [address] [address] Attending Physician: Mariel CARRERA, Letty Emmanuel [...] 13:18:00 EST, Route to Pharmacy Electronically, [facility]/pharmacy #[id number], 163, cm, 08/23/22 9:04:00 EDT, Height, [...] DAY Start Date: 05/11/22 Status: Ordered Evening [place] 4 gelcaps, By Mouth, Daily, 0 Refills, [...] 0 Refills, Maintenance, 10/14/20 15:35:00 EDT, Tablet, [facility], Partial fill upon [...] Care Team Personnel Name: Deyanira Holden Position: [facility] Onco RN Member Role: Primary Care Nurse Name: Linda Harris RN Position: [facility] SN RN Member Role: Primary Care Nurse Name: Janak Greer MD Position: [facility] Physician - Primary Care Member Role: PCP Address: Address: [address] [place] [address] Name: Tammy Montelongo RN Position: [facility] SN RN Member Role: Primary Care Nurse Care Team Related Persons Name: ISAAC JADASJ Address: home [address] [place] [address] Name: JASMINE VILLAR Address: home [address] [place] [address]
--- OUTSIDE RECORDS SUMMARY | 2023-10-30 07:27 | XMS_ITS | Continuity of Care Document ---
Author Organization [facility] Address [address] [place] [address]- Care Team Providers Care Senior Credit Analyst Name Role Phone Ro , Janak Coffey Primary Care Physician [phone] [place] [facility] [id number] Date(s): 08/01/23 - 08/08/23 [facility] [address] [place], [place] [address] Attending Physician: Rae RODRIGUEZ, Kev Peralta Referring Physician: Jaye RODRIGUEZ, Hernandez Sales Allergies, Adverse Reactions, Alerts No Known Allergies [...] 8:28:00 EST, Route to Pharmacy Electronically, [facility]/pharmacy #[id number], Partial fill upon patient request if the prescr... Start Date: 02/17/23 Stop Date: 02/12/24 Status: Ordered carvedilol 6.25 mg oral tablet 1, tablet, By Mouth, 2 times a day, # 180 tablet, Refills 3, Tot. Refills 3, Maintenance, 12/27/22 13:18:00 EST, Route to Pharmacy Electronically, [facility]/pharmacy #1130, 163, cm, 08/23/22 9:04:00 [...] Active Type 2 diabetes mellitus Confirmed Active Procedures Procedure Date Related Diagnosis Body Site Status bladder sling, PRIMITIVO 2002, Ramu ateral shoulder surgery, Umbilical hernia repair, cardiac catheterization Complete d Vital Signs Most recent to oldest [Reference Range]: 1 Height 163 cm (08/01/23 8:07 AM) Weight 116 kg (08/01/23 8:07 AM) Oxygen Saturation [94-100 %] 97 % (08/01/23 8:07 AM) Pulse Rate [55-90 bpm] 69 bpm (08/01/23 8:07 AM) Body Mass Index [18.5-24.99 kg/m2] 43.66 kg/m2 *>HHI* (08/01/23 8:07 AM) Blood Pressure [90-138/55-84 mm Hg] 136/ 53mm Hg (08/01/23 8:07 AM) Respiratory Rate [16-30 br/min] 18 br/mi n (08/01/23 8:07 AM) Mode of Delivery (Oxygen) Room air (08/01/23 8:07 AM) Blood pressure sites Arm, left (08/01/23 8:07 AM) Weight Obtained Via 69 (08/01/23 8:07 AM) Dry Weight Obtained Via Standing scale (08/01/23 8:07 AM) Social History Social History Type Response [...] Un known EKG study * Event Display: ECG 12-Lead Authored Date: Please click on pdf link to open report * Event Display: ECG 12-Lead Authored Date: Ventricular Rate: 66 BPM Atrial Rate: 66 BPM P-R Interval: 178 ms QRS Duration: 92 ms Q-T Interval: 410 ms QTC Calculation(Bazett): 429 ms P [place]: 20 degrees R [place]: -2 degrees T [place]: 25 degrees Normal sinus rhythm Normal ECG When compared with ECG of 04-FEB-2023 17:51, No significant change was found Confirmed by LISANDRA QUAN ([id number]) on 08/01/2023 8:43:37 AM Elsie: LISANDRA UQAN Patient Care team information Care Team Personnel Name: Deyanira Holden Position: [facility] RN Member Role: Primary Care Nurse Name: Linda Harris RN Position: [facility] SN RN Member Role: Primary Care Nurse Name: Janak Greer MD Position: [facility] Physician - Primary Care Member Role: PCP Address: Address: [address] [place] [address] Name: Tammy Montelongo RN Position: [facility] SN RN Member Role: Primary Care Nurse Care Team Related Persons Name: DANIELA GRAY Address: home [address] [place] [address] Name: JASMINE VILLAR Address: home [address] [place] [address]
--- OUTSIDE RECORDS SUMMARY | 2023-10-30 07:27 | XMS_ITS | Continuity of Care Document ---
Author Organization [facility] Address [address] [place] [address]- Care Team Providers Care Laborer Rags Name Role Phone Ro Janak RODRIGUEZ Primary Care Physician [phone] Encounter [facility] [place] Date(s): 04/07/23 - 05/07/23 [facility] Diabetes [address] [place] [address] Allergies, Adverse Reactions, Alerts No Known [...] 02/17/23 8:28:00 EST, Route to Pharmacy Electronically, [facility]/pharmacy #1130, Partial fill upon patient request if the prescr... Start Date: 02/17/23 Stop Date: 02/12/24 Status: Ordered carvedilol 6.25 mg oral tablet 1, tablet, By Mouth, 2 times a day, # 180 tablet, Refills 3, Tot. Refills 3, Maintenance, 12/27/22 13:18:00 EST, Route to Pharmacy Electronically, [facility]/pharmacy #[id number], 163, cm, 08/23/22 9:04:00 EDT, [...] DAY Start Date: 05/11/22 Status: Ordered Evening [place] 4 gelcaps, By Mouth, Daily, 0 Refills, [...] 1 Refills, Maintenance, 04/07/23 13:14:00 EST, Solution, [facility]/pharmacy #1130, 164, cm, 02/17/23 8:01:00 EST, [...] tablet, 0 Refills, Maintenance, 07/26/22 19:09:00 EDT, [facility]/pharmacy #[id number], Partial fill upon patient request [...] 0 Refills, Maintenance, 10/14/20 15:35:00 EDT, Tablet, [facility], Partial fill upon patient request [...] Name: Deyanira Holden Position: [facility] Onco RN Member Role: Primary Care Nurse Name: Janak Greer MD Position: [facility] Physician - Primary Care Member Role: PCP Address: Address: [address] [place] [address] Name: Tammy Montelongo RN Position: [facility] SN RN Member Role: Primary Care Nurse Care Team Related Persons Name: DANIELA GRAY Address: home [address] [place] [address] Name: JASMINE VILLAR Address: home [address] [place] [address]
--- OUTSIDE RECORDS SUMMARY | 2023-10-30 07:27 | XMS_ITS | Continuity of Care Document ---
Author Organization [facility] Address [address] [place] [address]- Care Team Providers Care Junior Automation Engineer Name Role Phone Janak Greer MD Primary Care Physician [phone] [place] [facility] [place] 05/31/21 - 07/08/21 [facility] [address] [place] [address]- Attending Physician: Nas Morfin MD Admitting Physician: Nas Morfin MD Referring Physician: Blanca Palma MD Allergies, Adverse Reactions, [...] EDT, Route to Pharmacy Electronically, [facility]/pharmacy #[id number], Partial fill upon patient request if the [...] EDT Start Date: 05/13/19 Status: Ordered Evening [place] 4 gelcaps, By Mouth, Daily, 0 Refills, [...] Model MESH BARD 6.6X6.6IN 15X15 CM - mylearnadfriend ([id number]) 1 Bard Unknown GARO:No Information Assigning Authority: FDA
--- OUTSIDE RECORDS SUMMARY | 2023-10-30 07:27 | XMS_ITS | Continuity of Care Document ---
Author Organization [facility] Address [address] [place] [address]- Care Team Providers Care Slot Host Name Role Phone Janak Greer MD Primary Care Physician [phone] [place] [facility] [place] [id number] Date(s): 07/04/23 - 08/03/23 [facility] [address] [place] [address] Allergies, Adverse Reactions, Alerts No Known Allergies [...] 02/17/23 8:28:00 EST, Route to Pharmacy Electronically, [facility]/pharmacy #1130, Partial fill upon patient request if the prescr... Start Date: 02/17/23 Stop Date: 02/12/24 Status: Ordered carvedilol 6.25 mg oral tablet 1, tablet, By Mouth, 2 times a day, # 180 tablet, Refills 3, Tot. Refills 3, Maintenance, 12/27/22 13:18:00 EST, Route to Pharmacy Electronically, [facility]/pharmacy #1130, 163, cm, 08/23/22 9:04:00 EDT, Height, [...] MD Position: [facility] Physician - Primary Care Member Role: PCP Address: Address: [address] [place] [phone] [place] [address] Name: Tammy Montelongo RN Position: [facility] SN RN Member Role: Primary Care Nurse Care Team Related Persons Name: DANIELA GRAY Address: home [address] [place] [address] Name: JASMINE VILLAR Address: home [address] [place] [address]
--- OUTSIDE RECORDS SUMMARY | 2023-10-30 07:27 | XMS_ITS | Continuity of Care Document ---
Author Organization [facility] Address [address] [place] [address]- Care Team Providers Care Digital Content Specialist Name Role Phone Janak Greer MD Primary Care Physician [place] [facility] Date(s): 03/18/19 - 03/18/[address] [address]- [facility] Attending Physician: Janak Greer MD Allergies, Adverse Reactions, [...] MESH BARD 6.6X6.6IN 15X15 CM - BARD ([id number]) 1 Bard Unknown GARO:No Information Assigning Authority: FDA
--- OUTSIDE RECORDS SUMMARY | 2023-10-30 07:27 | XMS_ITS | Continuity of Care Document ---
Author Organization [facility] Address [address] [place] [address]- Care Team Providers Care Crusher Setter Name Role Phone Janak Greer MD Primary Care Physician En[place] [facility] [place] [facility] [id number] Date(s): 08/31/23 - 09/30/23 [facility] Diabetes [address] [place] [address] Attending Physician: Herminio Myles Admitting Physician: Admtr, Ar8 Referring Physician: Admtr, [...] EST, Route to Pharmacy Electronically, [facility]/pharmacy #1130, Partial fill upon patient request if the prescr... Start Date: 02/17/23 Stop Date: 02/12/24 Status: Ordered carvedilol 6.25 mg oral tablet 1, tablet, By Mouth, 2 times a day, # 180 tablet, Refills 3, Tot. Refills 3, Maintenance, 12/27/22 13:18:00 EST, Route to Pharmacy Electronically, [facility]/pharmacy #1130, 163, cm, 08/23/22 9:04:00 [...] mL, 3 Refills, Maintenance, 09/28/23 18:45:00 EDT, [facility]/pharmacy #1130, Partial fill upon patient [...] Refills, Maintenance, 08/31/23 10:34:00 EDT, Solution, [facility]/pharmacy #1130, Partial fill upon patient [...] Care Nurse Name: Linda Harris RN Position: [facility] SN RN Member Role: Primary Care Nurse Name: Janak Greer MD Position: [facility] Physician - Primary Care Member Role: PCP Address: Address: [address] [place] [address] Name: Tammy Montelongo RN Position: [facility] SN RN Member Role: Primary Care Nurse Care Team Related Persons Name: DANIELA GRAY Address: home [address] [place] [address] Name: JASMINE VILLAR Address: home [address] [place] [address]
--- OUTSIDE RECORDS SUMMARY | 2023-10-30 07:27 | XMS_ITS | Continuity of Care Document ---
Author Organization [facility] Address [address] [place] [address]- Care Team Providers Care Chief Operator Hydroformer Name Role Phone Ro Janak RODRIGUEZ Primary Care Physician [place] [facility] [id number] Date(s): 01/24/23 - 02/23/23 [facility] [address] [place], [place] [address] Attending Physician: Herminio Myles Admitting Physician: [...] 02/17/23 8:28:00 EST, Route to Pharmacy Electronically, [facility]/pharmacy #1130, Partial fill upon patient request if the prescr... Start Date: 02/17/23 Stop Date: 02/12/24 Status: Ordered carvedilol 6.25 mg oral tablet 1, tablet, By Mouth, 2 times a day, # 180 tablet, Refills 3, Tot. Refills 3, Maintenance, 12/27/22 13:18:00 EST, Route to Pharmacy Electronically, [facility]/pharmacy #1130, 163, cm, 08/23/22 9:04:00 EDT, Height, [...] DAY Start Date: 05/11/22 Status: Ordered Evening [place] 4 gelcaps, By Mouth, Daily, 0 Refills, [...] 1 Refills, Maintenance, 02/20/23 10:40:00 EST, Solution, [facility]/pharmacy #1130, Partial fill upon patient [...] tablet, 0 Refills, Maintenance, 07/26/22 19:09:00 EDT, [facility]/pharmacy #1130, Partial fill upon patient [...] 15:35:00 EDT, Tablet, [facility], Partial fill upon patient request [...] Primary Care Member Role: PCP Address: Address: [address] [place] [phone] [place] [address] Name: Tammy Montelongo RN Position: [facility] SN RN Member Role: Primary Care Nurse Care Team Related Persons Name: JADA GRAYSOLANGEEFREM Address: home [address] [place] [address] Name: JIAN JASMINE Address: home [address] [place] [address]
--- OUTSIDE RECORDS SUMMARY | 2023-10-30 07:27 | XMS_ITS | Continuity of Care Document ---
Author Organization [facility] ter Address [address] [place] [address]- Care Team Providers Care Weaver Needle Loom Name Role Phone Ro Janak RODRIGUEZ Primary Care Physician [place] [facility] [place]/02/19 - 04/02/[address] [address]- [facility] Attending Physician: Blu ENGRAVER OPTICAL FRAMES , Michelle Allergies, Adverse Reactions, Alerts Substance Reaction Severity [...] MESH BARD 6.6X6.6IN 15X15 CM - BARD ([id number]) 1 Bard Unknown GARO:No Information Assigning Authority: FDA
--- OUTSIDE RECORDS SUMMARY | 2023-10-30 07:27 | XMS_ITS | Continuity of Care Document ---
Author Organization [facility] Address [address] [place] [address]- Care Team Providers Care University Registrar Name Role Phone Ro Janak RODRIGUEZ Primary Care Physician [facility] [id number] Date(s): 01/17/22 - 03/26/22 [facility] [address], [place] [address] Attending Physician: Blanca Palma MD Admitting Physician: Blanca Palma MD Referring Physician: Blanca Palma MD Allergies, [...] 06/24/21 15:16:00 EDT, Route to Pharmacy Electronically, [facility]/pharmacy #[id number], Partial fill upon patient request if the prescription is for a schedule II o... Start Date: 06/24/21 Status: Ordered carvedilol 6.25 mg oral tablet 1, tablet, By Mouth, 2 times a day, # 180 tablet, Refills 3, Maintenance, 12/19/21 8:35:00 EST, Route to Pharmacy Electronically, [facility] STORE 89393, 162.56, cm, 06/16/21 8:16:00 EDT, Height, 116.8, kg,10/14/20 13:50:00 EDT, Dry Weight Start Date: 12/19/21 Status: Ordered Centrum Silver 1 tab, By Mouth, Daily, 0 Refills, Maintenance, 02/14/16 20:44:22 EST Start Date: 02/14/16 Status: Ordered clonazePAM 0.5 mg oral tablet 1 tablet = 0.5 mg, By Mouth, 3 times a day, 0 Refills, Maintenance, 05/13/19 15:05:00 EDT Start Date: 05/13/19 Status: Ordered Evening [place] 4 gelcaps, By Mouth, Daily, 0 Refills, [...] 0 Refills, Maintenance, 10/14/20 15:35:00 EDT, Tablet, [facility], Partial fill upon patient [...] Care Team Personnel Name: Deyanira Holden Position: [facility] Onco RN Member Role: Primary Care Nurse Name: Linda Harris RN Position: [facility] SN RN Member Role: Primary Care Nurse Name: Janak Greer MD Position: [facility] Physician (General Medicine) Member Role: PCP Address: Address: [address] [place] [address]- Name: Jayda WYLIE, Tammy Position: S RN Member Role: Primary Care Nurse Care Team Related Persons Name: DANIELA GRAY Address: home [address] [place] [address] Name: JASMINE VILLAR Address: home [address] [place] [address]
--- OUTSIDE RECORDS SUMMARY | 2023-10-30 07:27 | XMS_ITS | Continuity of Care Document ---
Author Organization [facility] Address [address] [place] [address]- Care Team Providers Care Supervisor Looping Name Role Phone Ro Janak RODRIGUEZ Primary Care Physician En[place] [facility] [place] R [id number] Date(s): 07/28/22 - 08/27/22 [facility] [address] [facility] [place] [address]- Attending Physician: Herminio Myles Admitting Physician: Admtr, ArKimberly Referring Physician: Admtr, Ar8 Allergies, Adverse Reactions, [...] 06/24/21 15:16:00 EDT, Route to Pharmacy Electronically, [facility]/pharmacy #[id number], Partial fill upon patient request if the prescription is for a schedule II o... Start Date: 06/24/21 Status: Ordered carvedilol 6.25 mg oral tablet 1, tablet, By Mouth, 2 times a day, # 180 tablet, Refills 3, Maintenance, 12/19/21 8:35:00 EST, Route to Pharmacy Electronically, [facility] STORE 70787, 162.56, cm, 06/16/21 8:16:00 EDT, Height, 116.8, [...] DAY Start Date: 05/11/22 Status: Ordered Evening [place] 4 gelcaps, By Mouth, Daily, 0 Refills, [...] tablet, 0 Refills, Maintenance, 07/26/22 19:09:00 EDT, [facility]/pharmacy #1130, Partial fill upon patient request if [...] 0 Refills, Maintenance, 10/14/20 15:35:00 EDT, Tablet, [facility], Partial fill upon patient [...] Greer MD Position: [facility] Physician - Primary Care Member Role: PCP Address: Address: [address] [place] [address] Name: Tammy Montelongo RN Position: [facility] SN RN Member Role: Primary Care Nurse Care Team Related Persons Name: DANIELA GRAY Address: home [address] [place] [address] Name: JASMINE VILLAR Address: home [address] [place] [address]
--- OUTSIDE RECORDS SUMMARY | 2023-10-30 07:27 | XMS_ITS | Continuity of Care Document ---
Author Organization [facility] Address [address] [place] [address]- Care Team Providers Care Refrigerated Cargo Clerk Name Role Phone Janak Greer MD Primary Care Physician [place] [facility] [place] 06/02/21 [facility] [address] [place] [address]- [place] Allergies, Adverse Reactions, Alerts No Known Allergies Medications atorvastatin 80 mg oral tablet 1 tablet = 80 mg, By Mouth, Daily at bedtime, 0 Refills, Maintenance Start Date: 02/13/12 Status: Ordered carvedilol 6.25 mg oral tablet 6.25 mg, 1, tablet, By Mouth, 2 times a day, # 60 tablet, Refills 1, Tot. Refills 1, Maintenance, 05/24/21 17:59:00 EDT, Route to Pharmacy Electronically, [facility], Partial fill upon patient [...] EDT Start Date: 05/13/19 Status: Ordered Evening [place] 4 gelcaps, By Mouth, Daily, 0 Refills, [...] 0 Refills, Maintenance, 10/14/20 15:35:00 EDT, Tablet, [facility], Partial fill upon patient [...] Model MESH BARD 6.6X6.6IN 15X15 CM - [employer] ([id number]) 1 Bard Unknown GARO:No Information Assigning Authority: FDA
--- OUTSIDE RECORDS SUMMARY | 2023-10-30 07:27 | XMS_ITS | Continuity of Care Document ---
Author Organization [facility] ter Address [address] [place] [address]- Care Team Providers Care Pressure Steamer Tender Name Role Phone Janak Greer MD Primary Care Physician [phone] Encounter [facility] [place] Date(s): 10/14/20 - 10/14/[address] [address] Discharge Disposition: A-D/C Home Attending Physician: Blanca Palma MD Admitting Physician: Blanca Palma MD Referring Physician: Blanca Palma MD Allergies, Adverse Reactions, Alerts Substance Reaction Severity Status NKA Active Medications acetaminophen 500 mg oral tablet 2 tablet = 1,000 mg, By Mouth, Every 8 hours, PRN for pain, for 15 days, # 90 tablet, 0 Refills, Acute 10/29/20 15:35:00 EDT, 10/14/20 15:35:00 EDT, Tablet, [facility], Partial fill upon patient request if the prescription is for a sched... Start Date: 10/14/20 Stop Date: 10/29/20 Status: Ordered atorvastatin 80 mg oral tablet [...] EDT Start Date: 05/13/19 Status: Ordered Evening [place] 4 gelcaps, By Mouth, Daily, 0 Refills, [...] 3:54:00 EDT Start Date: 06/19/19 Status: Ordered oxyCODONE 5 mg oral tablet See Instructions, PRN, 1-2 tablet By Mouth Every 4- 6 hours, # 42 tablet, Refills 0, Tot. Refills 0, Acute 10/19/20 15:36:00 EDT, as needed for pain, 10/14/20 15:35:00 EDT, Instructions Replace Required Details, Route to Pharmacy Electronically, [facility]... Start Date: 10/14/20 Stop Date: 10/19/20 Status: Ordered traZODone 100 mg oral tablet [...] 10/14/20 15:35:00 EDT, Tablet, [facility], Partial fill upon patient request if the prescription is for a schedule II opioi... Start Date: 10/14/20 Stop Date: 10/21/20 Status: Ordered Problem List Condition Effective Dates Status Health Status Inform ant CKD (chronic kidney disease)(Confirmed) Active Instability of left ankle joint(Confirmed) Active Vital Signs Most recent to oldest [Reference Range]: 1 2 3 Height 162.56 cm (10/14/20 1:50 PM) 162.56 cm (10/07/20 5:53 PM) Weight 116.8 kg (10/14/20 1:50 PM) 117.27 kg (10/07/20 5:53 PM) Oxygen Saturation [94-100 %] 96 % (10/14/20 6:45 PM) 98 % (10/14/20 6:30 PM) 100 % (10/14/20 6:15 PM) Pulse Rate [55-90 bpm] 59 bpm (10/14/20 1:50 PM) 58 bpm (10/14/20 1:42 PM) 62 bpm (10/14/20 1:37 PM) Body Mass Index [18.5-24.99] 44.2 *>HHI* (10/14/20 1:50 PM) 44.38 *>HHI* (10/07/20 5:53 PM) Blood Pressure [90-138/55-84 mm Hg] 144/58mm Hg *H* (10/14/20 6:45 PM) 148/70mm Hg *H* (10/14/20 6:30 PM) 140/66mm Hg *H* (10/14/20 6:15 PM) Respiratory Rate [16-30 br/min] 19 br/min (10/14/20 6:45 PM) 20 br/min (10/14/20 6:30 PM) 17 br/min (10/14/20 6:15 PM) Temperature [96.8-100.4 DegF] 97 DegF (10/14/20 6:45 PM) 98 DegF (10/14/20 5:45 PM) 97.2 DegF (10/14/20 1:50 PM) Liters per Minute 5 L/min (10/14/20 5:45 PM) 3 L/min (10/14/20 1:42 PM) 3 L/min (10/14/20 1:37 PM) Mode of Delivery (Oxygen) Room air (10/14/20 7:30 PM) Room air (10/14/20 6:45 PM) Room air (10/14/20 6:30 PM) Blood pressure sites Arm, left (10/14/20 1:50 PM) Arm, left (10/14/20 1:42 PM) Arm, left (10/14/20 1:37 PM) Temperature Route Temporal (10/14/20 6:45 PM) Temporal (10/14/20 5:45 PM) Temporal (10/14/20 1:50 PM) Dry Weight 116.8 kg (10/14/20 1:50 PM) 117.27 kg (10/07/20 5:53 PM) Weight Obtained Via Standing scale (10/14/20 1:50 PM) Dry Weight Obtained Via Standing scale (10/14/20 1:50 PM) Patient/family stated (10/07/20 5:53 PM) Social History Social History Type Response Smoking Status Current every day guanaco richardson; Type: Cigarettes; Tobacco use times per day: smokes 5 cigaretets per day; Number of years: 20; Total pack years: 20; entered on: 02/15/16 Sex Medical Equipment Implanted Date:12/27/17Target Site:Abdomen Description Quantity MRI Company Model MESH BARD 6.6X6.6IN 15X15 CM - BARD ([id number]) 1 Bard Unknown GARO:No Information Assigning Authority: FDA
--- OUTSIDE RECORDS SUMMARY | 2023-10-30 07:27 | XMS_ITS | Continuity of Care Document ---
Author Organization [facility] Address [address] [place] [address]- Care Team Providers Care Potato Chip Frier Name Role Phone Janak Greer MD Primary Care Physician [place] [facility] [place] [id number] Date(s): 08/02/21 - 11/05/21 [facility] [address] [place], [place] [address] Attending Physician: Janak Greer MD Admitting Physician: [...] 06/24/21 15:16:00 EDT, Route to Pharmacy Electronically, [facility]/pharmacy #[id number], Partial fill upon [...] EDT Start Date: 05/13/19 Status: Ordered Evening [place] 4 gelcaps, By Mouth, Daily, 0 Refills, [...] 0 Refills, Maintenance, 10/14/20 15:35:00 EDT, Tablet, [facility], Partial fill upon [...] Team Personnel Name: Janak Greer MD Address: [address] [place] [address]
--- OUTSIDE RECORDS SUMMARY | 2023-10-30 07:27 | XMS_ITS | Continuity of Care Document ---
Author Organization [facility] Address [address] [place] [address]- Care Team Providers Care Softball Core Molder Name Role Phone Ro Janak RODRIGUEZ Primary Care Physician [phone] Encounter [facility] [place] Date(s): 06/23/21 - 07/23/21 [facility] [address] [place] [address]- Allergies, Adverse Reactions, Alerts No Known Allergies Medications atorvastatin 80 mg oral tablet 1 tablet = 80 mg, By Mouth, Daily at bedtime, 0 Refills, Maintenance Start Date: 02/13/12 Status: Ordered carvedilol 6.25 mg oral tablet 6.25 mg, 1, tablet, By Mouth, 2 times a day, # 60 tablet, Refills 5, Tot. Refills 5, Maintenance, 06/24/21 15:16:00 EDT, Route to Pharmacy Electronically, [facility]/pharmacy #[id number], Partial fill upon patient request if [...] EDT Start Date: 05/13/19 Status: Ordered Evening [place] 4 gelcaps, By Mouth, Daily, 0 [...] 0 Refills, Maintenance, 10/14/20 15:35:00 EDT, Tablet, [facility], Partial fill upon [...] MESH BARD 6.6X6.6IN 15X15 CM - BARD ([id number]) 1 Bard Unknown GARO:No Information Assigning Authority: FDA
--- OUTSIDE RECORDS SUMMARY | 2023-10-30 07:27 | XMS_ITS | Continuity of Care Document ---
Author Organization [facility] Address [address] [place] [address]- Care Team Providers Care Casting Carrier Name Role Phone Janak Greer MD Primary Care Physician [place] [facility] [place]22 - 09/22/22 [facility] [address] [place] [id number] Attending Physician: AdmHerminio merrill Admitting Physician: AdmtrHerminio Referring Physician: Admtr, Ar8 [...] 06/24/21 15:16:00 EDT, Route to Pharmacy Electronically, [facility]/pharmacy #[id number], Partial fill upon patient request if the prescription is for a schedule II o... Start Date: 06/24/21 Status: Ordered carvedilol 6.25 mg oral tablet 1, tablet, By Mouth, 2 times a day, # 180 tablet, Refills 3, Maintenance, 12/19/21 8:35:00 EST, Route to Pharmacy Electronically, [facility] 61435, 162.56, cm, 06/16/21 8:16:00 EDT, Height, 116.8, [...] DAY Start Date: 05/11/22 Status: Ordered Evening [place] 4 gelcaps, By Mouth, Daily, 0 Refills, [...] Care Team Personnel Name: Deyanira Holden Position: [facility] Onco RN Member Role: Primary Care Nurse Name: Linda Harris RN Position: [facility] SN RN Member Role: Primary Care Nurse Name: Janak Greer MD Position: [facility] Physician - Primary Care Member Role: PCP Address: Address: [address] [place] [address] Name: Tammy Montelongo RN Position: [facility] SN RN Member Role: Primary Care Nurse Care Team Related Persons Name: ISAAC JADASJ Address: home [address] [place] [address] Name: JASMINE VILLAR Address: home [address] [place] [address]
--- OUTSIDE RECORDS SUMMARY | 2023-10-30 07:27 | XMS_ITS | Continuity of Care Document ---
Author Organization [facility] Address [address] [place] [address]- Care Team Providers Care Founder Ceo & President Name Role Phone Ro Janak RODRIGUEZ Primary Care Physician [place] [facility] [place]s): 05/24/23 - 06/23/23 [facility] [address] [place] [address] Allergies, Adverse Reactions, Alerts No [...] 02/17/23 8:28:00 EST, Route to Pharmacy Electronically, [facility]/pharmacy #[id number], Partial fill upon patient request if the prescr... Start Date: 02/17/23 Stop Date: 02/12/24 Status: Ordered carvedilol 6.25 mg oral tablet 1, tablet, By Mouth, 2 times a day, # 180 tablet, Refills 3, Tot. Refills 3, Maintenance, 12/27/22 13:18:00 EST, Route to Pharmacy Electronically, [facility]/pharmacy #[id number], 163, cm, 08/23/22 9:04:00 EDT, [...] 2 Refills, Maintenance, 06/09/23 7:01:00 EDT, Solution, [facility]/pharmacy #1130, Replacing Mounjaro 7.5 mg as [...] DAY Start Date: 05/11/22 Status: Ordered Evening [place] 4 gelcaps, By Mouth, Daily, 0 Refills, [...] 4 Refills, Maintenance, 05/29/23 8:27:00 EDT, Solution, [facility]/pharmacy #[id number], Partial fill upon patient [...] Maintenance, 10/14/20 15:35:00 EDT, Tablet, [facility], Partial fill upon patient request if [...] Care Team Personnel Name: Navin Deyanira Position: [facility] Onco RN Member Role: Primary Care Nurse Name: Linda Harris RN Position: [facility] SN RN Member Role: Primary Care Nurse Name: Janak Greer MD Position: [facility] Physician - Primary Care Member Role: PCP Address: Address: [address] [place] [address] Name: Tammy Montelongo RN Position: [facility] SN RN Member Role: Primary Care Nurse Care Team Related Persons Name: ISAAC, KASOLANGEEFREM Address: home [address] [place] [address] Name: JASMINE VILLAR Address: home [address] [place] [address]
--- OUTSIDE RECORDS SUMMARY | 2023-10-30 07:27 | XMS_ITS | Continuity of Care Document ---
Author Organization [facility] ter Address [address] [place] [address]- Care Team Providers Care Waste Chopper Name Role Phone Janak Greer MD Primary Care Physician Encounter [facility] ACCT R [id number] Date(s): 08/30/22 - 11/11/[address] [address] Attending Physician: Loretta Savage MD Admitting Physician: Loretta Savage MD Referring Physician: Janak Greer MD Allergies, [...] 12/19/21 8:35:00 EST, Route to Pharmacy Electronically, [facility] STORE 07725, 162.56, cm, 06/16/21 8:16:00 EDT, Height, 116.8, [...] DAY Start Date: 05/11/22 Status: Ordered Evening [place] 4 gelcaps, By Mouth, Daily, 0 Refills, [...] 0 Refills, Maintenance, 10/14/20 15:35:00 EDT, Tablet, [facility], Partial fill upon patient [...] Care Team Personnel Name: Deyanira Holden Position: [facility] Onco RN Member Role: Primary Care Nurse Name: Linda Harris RN Position: [facility] SN RN Member Role: Primary Care Nurse Name: Janak Greer MD Position: [facility] Physician - Primary Care Member Role: PCP Address: Address: [address] [place] [id number] [place] [address] Name: Tammy Montelongo RN Position: [facility] SN RN Member Role: Primary Care Nurse Care Team Related Persons Name: DANIELA GRAY Address: home [address] [place] [address] Name: JASMINE VILLAR Address: home [address] [place] [address]
--- OUTSIDE RECORDS SUMMARY | 2023-10-30 07:27 | XMS_ITS | Continuity of Care Document ---
Author Organization [facility] Address [address] [place] [address]- Care Team Providers Care Counter Server Name Role Phone Ro Janak RODRIGUEZ Primary Care Physician [place] [facility] [place] - 09/29/22 [facility] [address] [place] [address] Allergies, Adverse Reactions, Alerts No Known Allergies [...] 12/19/21 8:35:00 EST, Route to Pharmacy Electronically, [facility] STORE 74016, 162.56, cm, 06/16/21 8:16:00 EDT, Height, 116.8, [...] DAY Start Date: 05/11/22 Status: Ordered Evening [place] 4 gelcaps, By Mouth, Daily, 0 Refills, [...] tablet, 0 Refills, Maintenance, 07/26/22 19:09:00 EDT, [facility]/pharmacy #[id number], Partial fill [...] 0 Refills, Maintenance, 10/14/20 15:35:00 EDT, Tablet, [facility], Partial fill upon patient request [...] Team Personnel Name: Deyanira Holden Position: [facility] Onco RN Member Role: Primary Care Nurse Name: Linda Harris RN Position: [facility] SN RN Member Role: Primary Care Nurse Name: Janak Greer MD Position: [facility] Physician - Primary Care Member Role: PCP Address: Address: [address] [place] [address] Name: Tammy Montelongo RN Position: [facility] SN RN Member Role: Primary Care Nurse Care Team Related Persons Name: DANIELA GRAY Address: home [address] [place] [address] Name: JASMINE VILLAR Address: home [address] [place] [address]
--- OUTSIDE RECORDS SUMMARY | 2023-10-30 07:27 | XMS_ITS | Continuity of Care Document ---
Author Organization [facility] Address [address] [place] [address]- Care Team Providers Care Parts Delivery Driver Name Role Phone Ro Janak RODRIGUEZ Primary Care Physician Encounter [facility] [place] Date(s): 12/07/22 - 01/06/23 [facility] [address] [place] [id number] [...] 15:16:00 EDT, Route to Pharmacy Electronically, [facility]/pharmacy #1130, Partial fill upon patient request if the prescription is for a schedule II o... Start Date: 06/24/21 Status: Ordered carvedilol 6.25 mg oral tablet 1, tablet, By Mouth, 2 times a day, # 180 tablet, Refills 3, Tot. Refills 3, Maintenance, 12/27/22 13:18:00 EST, Route to Pharmacy Electronically, [facility]/pharmacy #1130, 163, cm, 08/23/22 9:04:00 [...] DAY Start Date: 05/11/22 Status: Ordered Evening [place] 4 gelcaps, By Mouth, Daily, 0 Refills, [...] 0 Refills, Maintenance, 07/26/22 19:09:00 EDT, [facility]/pharmacy #1130, Partial fill upon patient [...] 10/14/20 15:35:00 EDT, Tablet, [facility], Partial fill upon patient [...] Primary Care Member Role: PCP Address: Address: [address] [place] [id number] [place] [address] Name: Tammy Montelongo RN Position: [facility] SN RN Member Role: Primary Care Nurse Care Team Related Persons Name: DANIELA GRAY Address: home [address] [place] [address] Name: JASMINE VILLAR Address: home [address] [place] [address]
--- OUTSIDE RECORDS SUMMARY | 2023-10-30 07:27 | XMS_ITS | Continuity of Care Document ---
Author Organization [facility] Address [address] [place] [address]- Care Team Providers Care Uniform Patrol Police Officer Name Role Phone Ro Janak RODRIGUEZ Primary Care Physician [place] [facility] [place] [id number] Date(s): 06/15/23 - 07/15/23 [facility] [address] [place] [id number] Allergies, Adverse Reactions, Alerts No Known [...] 02/17/23 8:28:00 EST, Route to Pharmacy Electronically, [facility]/pharmacy #[id number], Partial fill upon patient request if the prescr... Start Date: 02/17/23 Stop Date: 02/12/24 Status: Ordered carvedilol 6.25 mg oral tablet 1, tablet, By Mouth, 2 times a day, # 180 tablet, Refills 3, Tot. Refills 3, Maintenance, 12/27/22 13:18:00 EST, Route to Pharmacy Electronically, [facility]/pharmacy #1130, 163, cm, 08/23/22 9:04:00 EDT, Height, [...] DAY Start Date: 05/11/22 Status: Ordered Evening [place] 4 gelcaps, By Mouth, Daily, 0 [...] 3 Refills, Maintenance, 07/05/23 7:50:00 EDT, Solution, [facility]/pharmacy #1130, 164, cm, 05/22/23 15:09:00 EDT, Height, [...] tablet, 0 Refills, Maintenance, 07/26/22 19:09:00 EDT, [facility]/pharmacy #1130, Partial fill upon patient request if [...] 0 Refills, Maintenance, 10/14/20 15:35:00 EDT, Tablet, [facility], Partial fill upon patient request [...] Personnel Name: Deyanira Holden Position: [facility] Onco RN Member Role: Primary Care Nurse Name: Linda Harris RN Position: [facility] SN RN Member Role: Primary Care Nurse Name: Janak Greer MD Position: [facility] Physician - Primary Care Member Role: PCP Address: Address: [address] [place] [address] Name: Tammy Montelongo RN Position: [facility] SN RN Member Role: Primary Care Nurse Care Team Related Persons Name: DANIELA GRAY Address: home [address] [place] [address] Name: JASMINE VILLAR Address: home [address] [place] [phone]
--- OUTSIDE RECORDS SUMMARY | 2023-10-30 07:27 | XMS_ITS | Continuity of Care Document ---
Author Organization [facility] Address [address] [place] [address]- Care Team Providers Care Faculty Neuropsychologist Name Role Phone Ro Janak RODRIGUEZ Primary Care Physician [phone] Encounter [facility] [place] Date(s): 07/27/22 - 08/26/22 [facility] [address] [place] [address]- Allergies, Adverse Reactions, Alerts No Known Allergies Medications atorvastatin 80 mg oral tablet 1 tablet = 80 mg, By Mouth, Daily at bedtime, 0 Refills, Maintenance Start Date: 02/13/12 Status: Ordered carvedilol 6.25 mg oral tablet 6.25 mg, 1, tablet, By Mouth, 2 times a day, # 60 tablet, Refills 5, Tot. Refills 5, Maintenance, 06/24/21 15:16:00 EDT, Route to Pharmacy Electronically, [facility]/pharmacy #[id number], Partial fill upon patient request if the prescription is for a schedule II o... Start Date: 06/24/21 Status: Ordered carvedilol 6.25 mg oral tablet 1, tablet, By Mouth, 2 times a day, # 180 tablet, Refills 3, Maintenance, 12/19/21 8:35:00 EST, Route to Pharmacy Electronically, [id number], 162.56, cm, 06/16/21 8:16:00 EDT, Height, 116.8, [...] DAY Start Date: 05/11/22 Status: Ordered Evening [place] 4 gelcaps, By Mouth, Daily, 0 [...] 0 Refills, Maintenance, 10/14/20 15:35:00 EDT, Tablet, [facility] 3, Partial fill upon patient request [...] Care Team Personnel Name: Deyanira Holden Position: [facility] Onco RN Member Role: Primary Care Nurse Name: Linda Harris RN Position: [facility] SN RN Member Role: Primary Care Nurse Name: Janak Greer MD Position: [facility] Physician - Primary Care Member Role: PCP Address: Address: [address] [place] [address] Name: Tammy Montelongo RN Position: [facility] SN RN Member Role: Primary Care Nurse Care Team Related Persons Name: DANIELA GRAY Address: home [address] [place] [address] Name: JASMINE VILLAR Address: home [address] [place] [address]
--- OUTSIDE RECORDS SUMMARY | 2023-10-30 07:27 | XMS_ITS | Continuity of Care Document ---
Author Organization [facility] ter Address [address] [place] [address]- Care Team Providers Care Export Freight Clerk Name Role Phone Janak Greer MD Primary Care Physician [place] [facility] [id number] Date(s): 08/02/22 - 10/13/[address] [address] Attending Physician: Loretta Bhatia MD Admitting Physician: [...] 06/24/21 15:16:00 EDT, Route to Pharmacy Electronically, [facility]/pharmacy #[id number], Partial fill upon patient request if the prescription is for a schedule II o... Start Date: 06/24/21 Status: Ordered carvedilol 6.25 mg oral tablet 1, tablet, By Mouth, 2 times a day, # 180 tablet, Refills 3, Maintenance, 12/19/21 8:35:00 EST, Route to Pharmacy Electronically, [facility] [id number], 162.56, cm, 06/16/21 8:16:00 EDT, Height, 116.8, [...] DAY Start Date: 05/11/22 Status: Ordered Evening [place] 4 gelcaps, By Mouth, Daily, 0 Refills, [...] tablet, 0 Refills, Maintenance, 07/26/22 19:09:00 EDT, [facility]/pharmacy #1130, Partial fill upon patient request [...] 0 Refills, Maintenance, 10/14/20 15:35:00 EDT, Tablet, [facility], Partial fill upon patient request [...] Care Member Role: PCP Address: Address: [address] [place] [address] Name: Tammy Montelongo RN Position: [facility] SN RN Member Role: Primary Care Nurse Care Team Related Persons Name: DANIELA GRAY Address: home [address] [place] [address] Name: JASMINE VILLAR Address: home [address] [place] [address]
--- OUTSIDE RECORDS SUMMARY | 2023-10-30 07:27 | XMS_ITS | Continuity of Care Document ---
Author Organization [facility] Address [address] [place] [address]- Care Team Providers Care Embalmer Assistant Name Role Phone Janak Greer MD Primary Care Physician [phone] Encounter [facility] [place] Date(s): 06/16/21 - 06/23/21 [facility] [address] [place] [address]- Encounter Diagnosis Preoperative examination(Discharge Diagnosis) - 06/16/21 Left ventricular hypertrophy(Discharge Diagnosis) - 06/16/21 Hypertension(Discharge Diagnosis) - 06/16/21 Attending Physician: Stewart Patterson MD Referring Physician: [...] 05/24/21 17:59:00 EDT, Route to Pharmacy Electronically, [facility], Partial fill [...] EDT Start Date: 05/13/19 Status: Ordered Evening [place] 4 gelcaps, By Mouth, Daily, 0 Refills, [...] 0 Refills, Maintenance, 10/14/20 15:35:00 EDT, Tablet, [facility], Partial fill upon patient request if the prescription is for a schedule II opioi... Start Date: 10/14/20 Stop Date: 10/21/20 Status: Ordered Problem List Condition Effective Dates Status Health Status Inform ant CKD (chronic kidney disease)(Confirmed) Active Instability of left ankle joint(Confirmed) Active Severe obesity(Confirmed) Active Diagnosis Diagnosis Type Effective Dates Health Status Clinical Service Informant Preoperative examination Discharge Diagnosis 06/16/21 Left ventricular hypertrophy Discharge Diagnosis 06/16/21 Hypertension Discharge Diagnosis 06/16/21 Vital Signs Most recent to oldest [Reference Range]: 1 Height 162.56 cm (06/16/21 8:16 AM) Weight 131.4 kg (06/16/21 8:16 AM) Pulse Rate [55-90 bpm] 73 bpm (06/16/21 8:16 AM) Body Mass Index [18.5-24.99] 49.72 *>HHI* (06/16/21 8:16 AM) Blood Pressure [90-138/55-84 mm Hg] 126/ 48mm Hg (06/16/21 8:16 AM) Blood pressure sites Arm, left (06/16/21 8:16 AM) Social History Social History Type Response Smoking Status Former smoker, quit more than 30 days ago entered on: 02/23/21 Sex Medical Equipment Implanted Date:12/27/17Target Site:Abdomen Description Quantity MRI Company Model MESH BARD 6.6X6.6IN 15X15 CM - BARD ([id number]) 1 Bard Unknown GARO:No Information Assigning Authority: FDA
--- OUTSIDE RECORDS SUMMARY | 2023-10-30 07:27 | XMS_ITS | Continuity of Care Document ---
Author Organization [facility] Address [address] [place] [address]- Care Team Providers Care Yard Truck Driver Name Role Phone Ro Janak RODRIGUEZ Primary Care Physician Encounter [facility] [place] Date(s): 12/05/22 - 01/04/23 [facility] [address] [place] [id number] Allergies, Adverse Reactions, Alerts No Known Allergies [...] DAY Start Date: 05/11/22 Status: Ordered Evening [place] 4 gelcaps, By Mouth, Daily, 0 Refills, [...] 0 Refills, Maintenance, 10/14/20 15:35:00 EDT, Tablet, [facility], Partial fill [...] Personnel Name: Deyanira Holden Position: [facility] Onco RN Member Role: Primary Care Nurse Name: Linda Harris RN Position: [facility] SN RN Member Role: Primary Care Nurse Name: Janak Greer MD Position: [facility] Physician - Primary Care Member Role: PCP Address: Address: [address] [place] [phone] [place] [address] Name: Tammy Montelongo RN Position: [facility] SN RN Member Role: Primary Care Nurse Care Team Related Persons Name: DANIELA GRAY Address: home [address] [place] [address] Name: JASMINE VILLAR Address: home [address] [place] [address]
--- OUTSIDE RECORDS SUMMARY | 2023-10-30 07:27 | XMS_ITS | Continuity of Care Document ---
Author Organization [facility] Address [address] [place] [address]- Care Team Providers Care Drip Pumper Name Role Phone Ro Janak RODRIGUEZ Primary Care Physician Encounter [facility] [place] Date(s): 07/04/23 - 08/03/23 [facility] [address] [place] [id number] Allergies, Adverse Reactions, Alerts No Known [...] 02/17/23 8:28:00 EST, Route to Pharmacy Electronically, [facility]/pharmacy #[id number], Partial fill upon patient request if the prescr... Start Date: 02/17/23 Stop Date: 02/12/24 Status: Ordered carvedilol 6.25 mg oral tablet 1, tablet, By Mouth, 2 times a day, # 180 tablet, Refills 3, Tot. Refills 3, Maintenance, 12/27/22 13:18:00 EST, Route to Pharmacy Electronically, [facility]/pharmacy #[id number], 163, cm, 08/23/22 9:04:00 [...] Team Personnel Name: Deyanira Holden Position: [facility] Onco RN Member Role: Primary Care Nurse Name: Linda Harris RN Position: [facility] SN RN Member Role: Primary Care Nurse Name: Janak Greer MD Position: [facility] Physician - Primary Care Member Role: PCP Address: Address: [address] [place] [phone] [place] [address] Name: Tammy Montelongo RN Position: [facility] SN RN Member Role: Primary Care Nurse Care Team Related Persons Name: DANIELA GRAY Address: home [address] [place] [address] Name: JASMINE VILLAR Address: home [address] [place] [address]
--- OUTSIDE RECORDS SUMMARY | 2023-10-30 07:27 | XMS_ITS | Continuity of Care Document ---
Author Organization [facility] Address [address] [place] [address]- Care Team Providers Care Camera Prototyping Engineer Name Role Phone Ro Janak RODRIGUEZ Primary [facility] Physician [id number] Date[facility]03[facility] - 03/10/22 [facility] [address] [place] [address]- Attending Physician: Mariel CARRERA, Letty Emmanuel Referring Physician: Not on Staff, Referring MD [...] 06/24/21 15:16:00 EDT, Route to Pharmacy Electronically, [facility]/pharmacy #1130, Partial fill upon patient request if the prescription is for a schedule II o... Start Date: 06/24/21 Status: Ordered carvedilol 6.25 mg oral tablet 1, tablet, By Mouth, 2 times a day, # 180 tablet, Refills 3, Maintenance, 12/19/21 8:35:00 EST, Route to Pharmacy Electronically, [facility] 39426, 162.56, cm, 06/16/21 8:16:00 EDT, Height, 116.8, kg,10/14/20 13:50:00 EDT, Dry Weight Start Date: 12/19/21 Status: Ordered Centrum Silver 1 tab, By Mouth, Daily, 0 Refills, Maintenance, 02/14/16 20:44:22 EST Start Date: 02/14/16 Status: Ordered clonazePAM 0.5 mg oral tablet 1 tablet = 0.5 mg, By Mouth, 3 times a day, 0 Refills, Maintenance, 05/13/19 15:05:00 EDT Start Date: 05/13/19 Status: Ordered Evening [place] 4 gelcaps, By Mouth, Daily, 0 Refills, [...] 0 Refills, Maintenance, 10/14/20 15:35:00 EDT, Tablet, [facility], Partial fill upon patient request [...] oldest [Reference Range]: 1 Height 162.56 cm (03/03/22 11:40 AM) Weight 131 kg (03/03/22 11:40 AM) Oxygen Saturation [94-100 %] 97 % (03/03/22 11:40 AM) Pulse Rate [55-90 bpm] 73 bpm (03/03/22 11:40 AM) Body Mass Index [18.5-24.99 kg/m2] 49.57 kg/m2 *>HHI* (03/03/22 11:40 AM) Blood Pressure [90-138/55-84 mm Hg] 130/ 72mm Hg (03/03/22 11:40 AM) Blood pressure sites Arm, left (03/03/22 11:40 AM) Social History Social History Type Response [...] Linda Harris RN Position: [facility] SN RN Member Role: Primary Care Nurse Name: Janak Greer MD Position: [facility] Physician (General Medicine) Member Role: PCP Address: Address: [address] [place] [address] Name: Tammy Montelongo RN Position: [facility] SN RN Member Role: Primary Care Nurse Care Team Related Persons Name: DANIELA GRAY Address: home [address] [place] [address] Name: JASMINE VILLAR Address: home [address] [place] [address]
--- OUTSIDE RECORDS SUMMARY | 2023-10-30 07:28 | XMS_ITS | Continuity of Care Document ---
Author Organization [facility] ter Address [address] [place] [address]- Care Team Providers Care Sales And Service Change Leader Name Role Phone Ro Janak RODRIGUEZ Primary Care Physician [id number] Date(s): 10/12/22 - 11/11/[address] [address]- Attending Physician: Herminio Myles Admitting Physician: AdmtrHerminio [...] 06/24/21 15:16:00 EDT, Route to Pharmacy Electronically, [facility]/pharmacy #[id number], Partial fill upon patient request if the prescription is for a schedule II o... Start Date: 06/24/21 Status: Ordered carvedilol 6.25 mg oral tablet 1, tablet, By Mouth, 2 times a day, # 180 tablet, Refills 3, Maintenance, 12/19/21 8:35:00 EST, Route to Pharmacy Electronically, [facility] STORE 91909, 162.56, cm, 06/16/21 8:16:00 EDT, Height, 116.8, [...] Start Date: 05/11/22 Status: Ordered Evening [place] 4 gelcaps, By Mouth, Daily, 0 Refills, [...] tablet, 0 Refills, Maintenance, 07/26/22 19:09:00 EDT, [facility]/pharmacy #1130, Partial fill upon [...] 0 Refills, Maintenance, 10/14/20 15:35:00 EDT, Tablet, [facility], Partial fill upon patient [...] Care Member Role: PCP Address: Address: [address] [place] [address] Name: Tammy Montelongo RN Position: [facility] SN RN Member Role: Primary Care Nurse Care Team Related Persons Name: DANIELA GRAY Address: home [address] [place] [address] Name: JASMINE VILLAR Address: home [address] [place] [address]
--- OUTSIDE RECORDS SUMMARY | 2023-10-30 07:28 | XMS_ITS | Continuity of Care Document ---
Author Organization [facility] ter Address [address] [place] [address]- Care Team Providers Care Agency Sales Representative Name Role Phone Ro Janak RODRIGUEZ Primary Care Physician Encounter [facility] [id number] Date(s): 11/21/22 - 01/18/[address] [address] Attending Physician: Loretta Savage MD Admitting Physician: Loretta Savage MD Allergies, Adverse Reactions, Alerts No Known [...] 12/27/22 13:18:00 EST, Route to Pharmacy Electronically, [facility]/pharmacy #[id number], 163, cm, 08/23/22 9:04:00 [...] DAY Start Date: 05/11/22 Status: Ordered Evening [place] 4 gelcaps, By Mouth, Daily, 0 Refills, [...] 0 Refills, Maintenance, 10/14/20 15:35:00 EDT, Tablet, [facility], Partial fill upon patient [...] Personnel Name: Deyanira Holden Position: [facility] Onco RN Member Role: Primary Care Nurse Name: Linda Harris RN Position: [facility] SN RN Member Role: Primary Care Nurse Name: Janak Greer MD Position: [facility] Physician - Primary Care Member Role: PCP Address: Address: [address] [place] [address] Name: Tammy Montelongo RN Position: [facility] SN RN Member Role: Primary Care Nurse Care Team Related Persons Name: DANIELA GRAY Address: home [address] [place] [address] Name: JASMINE VILLAR Address: home [address] [place] [address]
--- OUTSIDE RECORDS SUMMARY | 2023-10-30 07:28 | XMS_ITS | Continuity of Care Document ---
Author Organization [facility] Address [address] [place] [address]- Care Team Providers Care Light Rail Signal Technician Name Role Phone Janak Greer MD Primary Care Physician [phone] Encounter [facility] [id number] Date(s): 02/21/20 - 03/22/20 [facility] [address] [place], [place] [address] Attending Physician: Herminio Myles Admitting Physician: AdmtrHerminio Referring Physician: Admtr ArKimberly Allergies, Adverse Reactions, Alerts Substance Reaction Severity [...] MESH BARD 6.6X6.6IN 15X15 CM - BARD ([id number]) 1 Bard Unknown GARO:No Information Assigning Authority: FDA
--- OUTSIDE RECORDS SUMMARY | 2023-10-30 07:28 | XMS_ITS | Continuity of Care Document ---
Author Organization [facility] Address [address] [place] [address]- Care Team Providers Care Hrbp Name Role Phone Ro Janak RODRIGUEZ Primary Care Physician Encounter [facility] [place] Date(s): 03/03/23 - 04/02/23 [facility] [address] [place] [address]- Allergies, Adverse Reactions, Alerts No Known Allergies Medications amoxicillin 875 mg oral tablet 1 tablet = 875 mg, By Mouth, 2 times a day, for 7 days, # 14 tablet, 0 Refills, Acute 04/07/23 22:05:00 EST, 03/31/23 22:05:00 EST, Tablet, [facility]/pharmacy #[id number], Partial fill upon [...] 02/17/23 8:28:00 EST, Route to Pharmacy Electronically, [facility]/pharmacy #1130, Partial fill upon patient request if the prescr... Start Date: 02/17/23 Stop Date: 02/12/24 Status: Ordered carvedilol 6.25 mg oral tablet 1, tablet, By Mouth, 2 times a day, # 180 tablet, Refills 3, Tot. Refills 3, Maintenance, 12/27/22 13:18:00 EST, [id number], cm, 08/23/22 9:04:00 EDT, [...] DAY Start Date: 05/11/22 Status: Ordered Evening [place] 4 gelcaps, By Mouth, Daily, 0 Refills, [...] 0 Refills, Maintenance, 03/09/23 15:49:00 EST, Solution, [facility]/pharmacy #[id number], 164, cm, 02/17/23 [...] Refills, Maintenance, 10/14/20 15:35:00 EDT, Tablet, [facility], Partial fill upon patient request [...] Care Nurse Name: Janak Greer MD Position: [facility] Physician - Primary Care Member Role: PCP Address: Address: [address] [place] [id number] [place] [address] Name: Tammy Montelongo RN Position: [facility] SN RN Member Role: Primary Care Nurse Care Team Related Persons Name: ISAAC, KASJ Address: home [address] [place] [address] Name: JASMINE VILLAR Address: home [address] [place] [address]
--- OUTSIDE RECORDS SUMMARY | 2023-10-30 07:28 | XMS_ITS | Continuity of Care Document ---
Author Organization [facility] Address [address] [place] [address]- Care Team Providers Care Navigation Teacher Name Role Phone Ro Janak RODRIGUEZ Primary Care Physician [phone] [place] [facility] Date(s): 11/30/22 - 12/30/22 [facility] [address] [place] [address] Allergies, Adverse Reactions, Alerts No Known [...] 13:18:00 EST, Route to Pharmacy Electronically, [facility]/pharmacy #[id number], 163, cm, 08/23/22 9:04:00 [...] DAY Start Date: 05/11/22 Status: Ordered Evening [place] 4 gelcaps, By Mouth, Daily, 0 Refills, [...] tablet, 0 Refills, Maintenance, 07/26/22 19:09:00 EDT, [facility]/pharmacy #[id number], Partial fill [...] 0 Refills, Maintenance, 10/14/20 15:35:00 EDT, Tablet, [facility], Partial fill upon patient [...] Care Team Personnel Name: Deyanira Holden Position: [facility] Onco RN Member Role: Primary Care Nurse Name: Linda Harris RN Position: [facility] SN RN Member Role: Primary Care Nurse Name: Janak Greer MD Position: [facility] Physician - Primary Care Member Role: PCP Address: Address: [address] [place] [phone] [place] [address] Name: Tammy Montelongo RN Position: [facility] SN RN Member Role: Primary Care Nurse Care Team Related Persons Name: DANIELA GRAY Address: home [address] [place] [address] Name: JASMINE VILLAR Address: home [address] [place] [address]
[2023-10-30 07:43] LABS: Glucose, Whole Blood 140 mg/dL (60-115)
[2023-10-30] MEDS: Lactated Ringers 1,000 ML 100 ML IVCONT ×2 (08:08→17:54)
[2023-10-30] MEDS: vancomycin/NS 2,000 MG/500 ML PLAST..BAG 250 MG IV ×2 (08:56→22:08)
--- NOTE | 2023-10-30 14:06 | PM.OP ---
Brief Operative Note Date of Service: 10/30/23 Pre-op diagnosis: Right knee degenerative joint disease Post-op diagnosis: same Procedure: Right total knee arthroplasty Implants: [employer]aines Triathlon cemented posterior stabilized total knee arthroplasty with a femoral component size 3 right, universal tibial component size 4, tibial stem size 12 mm in diameter by 50 mm in length, polyethylene liner size 4 with 10 mm of thickness, an asymmetric patellar component size 29 with 9 mm of thickness Surgeon: Anup Jordan MD Anesthesia: regional and spinal Was an Director Cardiac used for this Procedure?: No Director Cardiac: Sis Lehman Estimated blood loss (mL): 200 Pathology: other (Bony fragments from the right femur, tibia and patella) Condition: stable Disposition: PACU
--- NOTE | 2023-10-30 14:13 | W.PM.OPN ---
Operative Note Operative Note Date of Service: 10/30/23 Narrative: After the patient was identified as Esperanza Dean and her right knee was initialed by myself the patient was brought to the holding area where a right leg nerve block was performed by the anesthesiologist in routine fashion. The patient was then brought to the operating room where conscious sedation and spinal anesthesia were performed by the anesthesiologist in routine fashion. Because of the patient's obesity and diabetes she was given both IV vancomycin and IV Ancef preoperatively for infection prophylaxis. The patient's right lower extremity was prepped and draped in sterile fashion. A formal time-out was completed. The patient's right knee was placed onto a small bump to produce 30? of knee flexion during exposure. A #10 scalpel blade was used to make a midline incision extending 1 handbreadth proximal and distal to the patella. A second #10 scalpel blade was used to dissect the subcutaneous tissues down to the extensor mechanism. The subcutaneous flaps were maintained as thick as possible. A medial parapatellar arthrotomy was then performed using a #10 scalpel blade. The arthrotomy was begun just medial to the patellar tendon. The arthrotomy was continued 1 cm medial to the patella and then 5 mm into the medial aspect of the quadriceps tendon. The infrapatellar fat pad was partially excised to help with exposure. The soft tissue retinaculum was raised one-half of the way around the medial aspect of the proximal tibia. The patella was everted and the knee was flexed to 90?. There was no injury to the patellar tendon or its insertion onto the tibial tubercle. A drill bit was introduced into the distal aspect of the femur with a starting point 1 cm anterior to the origin of the posterior cruciate ligament. The intramedullary alignment keisha was put into place. The distal alignment guide was set for a 5 degree valgus cut. The distal cutting block was put into place and was held with 4 pins. The intramedullary alignment keisha was removed. Soft tissues were retracted in the distal femoral cut was made using a sagittal saw. The distal aspect of the femur measured to be a size 3 right component. Two drill holes were placed into the distal aspect of the femur marking 3? of external rotation. The distal cutting block was impacted into place and was held with 2 pins. Soft tissues were retracted and the 4 distal femoral cuts were made using a sagittal saw. Final notching and drilling of the distal aspect of the femur were performed in routine fashion. The trial femoral component was impacted into place. The knee was taken through a full range of motion. The patella tracked well. The patella was everted and the knee was flexed to 90?. The trial component was removed and our attention was directed to the proximal tibia. The medial and lateral menisci were removed using a #10 scalpel blade. A small rim of the medial meniscus was left intact to help prevent injury to the medial collateral ligament. A drill bit was then introduced into the proximal tibia with a starting point midway from medial to lateral and one-third of the way posteriorly. The intramedullary alignment keisha was put into place. The proximal tibial cutting guide was placed over the alignment keisha in line with the 2nd toe. The guide was held in place using 3 pins. The intramedullary alignment keisha was removed. Soft tissues were retracted and the proximal tibial cut was made using a sagittal saw. Inspection of the proximal tibia showed a bony cyst measuring approximately 5 mm x 5 mm by 10 mm along the medial tibial plateau. Because of the presence of the cyst and the patient's obesity the decision was made to use a tibial stem to help prevent loosening of the tibial component in the future. The proximal tibia measured to be a size 4 component. The tibial tray was put into place with a 10 mm liner. The femoral component was impacted into place. The knee was taken through a full range of motion. There was full flexion and full extension. There was no instability with varus or valgus stress testing with the knee in flexion or extension. The patella tracked well with no medially directed force. The rotation of the tibial tray was marked using electrocautery with the knee in extension. The patella was everted and the knee was flexed to 90?. All trial components were removed. The tibial tray was placed onto the proximal tibia in line with the electrocautery zachariah. The tray was held in place using 3 pins. Final broaching and drilling of the proximal tibia were performed in routine fashion. The trial liner and trial femoral component were put into place. The knee was brought into extension and our attention was directed to the patella. The patella measured 25 mm in thickness. The patellar resection guide was set for a 10 mm resection. Soft tissues were retracted and the patella cut was made using a sagittal saw. The remaining patella measured 15 mm in thickness. The undersurface of the patella was measured to be a size 29 asymmetric component. Three drill holes were placed into the undersurface of the patella in routine fashion. The trial component was put into place. The knee was taken through a full range of motion. The patella tracked well. The patella was everted and the knee was flexed to 90?. All trial components were removed. The knee was once again brought into extension and placed onto a small bump. The knee joint was irrigated with copious amounts of normal saline solution via pulse lavage while the cement was mixed. The patella was everted and the knee was flexed to 90?. A small amount of cement was placed along the posterior aspects of the tibial and femoral components. Cement was then pressurized into the proximal tibia. The tibial component was impacted into place. Any excess cement was removed. The polyethylene liner was then impacted into place. Cement was then pressurized into the distal aspect of the femur. A small amount of cement was placed into the intramedullary canal to help reduce bleeding. The femoral component was impacted into place. Any excess cement was removed. The knee was then brought into extension. Cement was pressurized into the undersurface of the patella. The patellar component was put into place and was held with a patella clamp. Any excess cement was removed. Once the cement had hardened the patellar clamp was removed. The knee was taken through a full range of motion. There was full flexion and extension. There was no instability with varus or valgus stress testing with the knee in flexion or extension. The patella tracked well with no medially directed force. The knee joint was irrigated with copious amounts of normal saline solution via pulse lavage. Any significant bleeding vessels were coagulated. The patient's right knee was placed onto a small bump. The arthrotomy was closed with #2 Ethibond [id number] interrupted suture as well as #1 Vicryl [id number] interrupted suture. The wound was once again irrigated. The subcutaneous tissues were closed with 0 Vicryl and 2-0 Vicryl interrupted sutures. The skin was closed with skin marla. Dry sterile dressing and Brock bandages were placed over the patient's right knee. The patient was awake and alert. The patient was transferred to the recovery room in stable condition.
[2023-10-30] MEDS: HYDROmorphone HCl 0.5 MG/0.5 ML SYRINGE 0.25 MG IVPUSH ×3 (14:47→18:03)
[2023-10-30 16:39] LABS: Glucose, Whole Blood 213 mg/dL (60-115)
--- NOTE | 2023-10-30 16:59 | P.CONHOSP_ITS ---
History of Present Illness Data of Consult Service Date: 10/30/23 Requesting physician: Jey Kwan Primary Care Provider: Janak Greer MD HPI Reason for consult: medical management 62-year-old female with history of lithium induced chronic renal insufficiency, hypertension, history of DVT/chronic PE anticoagulated with Eliquis, bipolar disorder, SHAWN on CPAP, hyperlipidemia, fibromyalgia, hypothyroidism, insulin- dependent type 2 diabetes, asthma, who is morbidly obese with BMI greater than 44 admitted to Orthopedic surgery for management of osteoarthritis of the right knee s/p TKA with consult placed to hospitalist service for medical management. She typically uses and insulin pump at home but removed it prior to arrival. Does not wish to use this while admitted. She is complaining of 10/10 pain in the R knee but otherwise has no complaints. She is a former smoker and denies any regular alcohol use or illicit drug use. Review of Systems 2 Review of Systems: Yes all other systems are reviewed and are negative [facility] Medical History Fatty liver Asthma Hypothyroid DVT (deep venous thrombosis) Fibromyalgia HTN (hypertension) Chronic renal insufficiency Type 2 diabetes mellitus Bipolar disorder Depression Morbid obesity Chronic pulmonary embolism Sleep apnea GERD (gastroesophageal reflux disease) Elevated cholesterol Surgical History History of esophagogastroduodenoscopy (EGD) H/O colonoscopy Hx of inguinal hernia repair Hx of sinus surgery Hx of shoulder surgery Hx of umbilical hernia repair Hx of arthroscopy of right knee History of bladder suspension procedure Hx of tonsillectomy H/O: hysterectomy History of ankle surgery Social History Household Members Other:: takes care of parents Are you a primary point of care technician to a significant other at home: No Do you presently have visiting nurse or other home services: No Patient Tobacco Use Status: Former Tobacco user Tobacco use type: Cigarette Years Smoked: 30 Use of substances other than those prescribed or required for medical reasons: No Have you been hit, kicked, punched, or otherwise hurt by someone within the past year? If so, by whom?: No Are you DNR?: No Advance Directives: No (daughter is primary contact) Advance Directives Information Provided: Yes (as above noted) Advance Directives on File: No Recently lost weight without trying: No Eating poorly because of decreased appetite: No Nutrition Risks: No Nutritional Risk Poor oral hygiene: No (wisdom teeth were extrcted) Meds Allergies Allergy/AdvReac Type Severity Reaction Status Date / Time No Known Allergies Allergy Verified 10/30/23 07:32 Active Medications: Current Medications Acetaminophen (Acetaminophen 325 Mg Tablet) 650 mg PO Q6H PRN PRN Reason: Pain, Mild (Pain Scale 1-3), fever or headache Albuterol Sulfate (Albuterol Sulfate 90 Mcg 8 Gm Inhaler) 1 puff INHALE Q4H PRN PRN Reason: Shortness Of Breath Or Wheezing Apixaban (Apixaban 5 Mg Tablet) 5 mg PO BID [facility] Atorvastatin Calcium (Atorvastatin Calcium 80 Mg Tablet) 80 mg PO BEDTIME KEVYN Buspirone HCl (Buspirone Hcl 5 Mg Tablet) 15 mg PO BID [facility] Carvedilol (Carvedilol 3.125 Mg Tablet) 3.125 mg PO BID [facility]; Protocol Carvedilol (Carvedilol 6.25 Mg Tablet) 6.25 mg PO BID KEVYN; Protocol Celecoxib (Celecoxib 200 Mg Capsule) 200 mg PO BID [facility] Clonazepam (Clonazepam 1 Mg Tablet) 1 mg PO BID [facility] Docusate Sodium (Docusate Sodium 100 Mg Capsule) 100 mg PO BID [facility] Escitalopram Oxalate (Escitalopram Oxalate 20 Mg Tablet) 20 mg PO DAILY [facility] Gabapentin (Gabapentin 100 Mg Capsule) 100 mg PO BEDTIME [facility] Glucose (Glucose Gel 15 Gm Gel..Gram.) 15 gm PO Q15M PRN; Protocol PRN Reason: per Hypoglycemia Standing Ord. Hydromorphone HCl (Hydromorphone Hcl 0.5 Mg/0.5 Ml Syringe) 0.5 mg IVPUSH Q4H PRN; Protocol PRN Reason: Pain, Severe (Pain Scale 7-10) Hydromorphone HCl (Hydromorphone Hcl 0.5 Mg/0.5 Ml Syringe) 0.25 mg IVPUSH Q4H PRN; Protocol PRN Reason: Pain, Severe (Pain Scale 7-10) Hydroxyzine HCl (Hydroxyzine Hcl 25 Mg Tablet) 25 mg PO TID PRN PRN Reason: Anxiety Lactated Ringer's (Lr) 1,000 mls @ 100 mls/hr IVCONT .Q10H [facility] Last Infusion: 10/30/23 16:41 Dose: Infused Lactated Ringer's (Lr) 1,000 mls @ 100 mls/hr IVCONT .Q10H [facility] Cefazolin Sodium/Dextrose (Ancef) 2 gm in 50 mls @ 100 mls/hr IV Q8H [facility] Stop: 10/31/23 05:00 Vancomycin HCl (Vancomycin/Ns) 2,000 mg in 500 mls @ 250 mls/hr IV POSTOP ONE Stop: 10/30/23 18:22 Dextrose (D10) 250 mls @ 750 mls/hr IV Q15M PRN; Protocol PRN Reason: per Hypoglycemia Standing Ord. Insulin Human Lispro (Insulin Lispro 100 Unit/Ml 3 Ml Vial) 0 unit SUBCUT QIDACHS [facility]; Protocol Levothyroxine Sodium (Levothyroxine Sodium 25 Mcg Tablet) 25 mcg PO DAILY@0600 [facility] Methocarbamol (Methocarbamol 750 Mg Tablet) 750 mg PO TID [facility] Mirabegron (Mirabegron 50 Mg Tab.Er.24h) 50 mg PO DAILY [facility] Non-Formulary Medication (Fluticasone Propion-Salmeterol [Wixela Inhub]) 1 each INHALE BID [facility] Non-Formulary Medication (Linaclotide [Linzess]) 145 mcg PO DAILY [facility] Non-Formulary Medication (Tirzepatide [Mounjaro]) 10 mg SUBCUT QWEEK [facility] Omeprazole (Omeprazole 20 Mg Capsule.Dr) 20 mg PO DAILY@0630 [facility] Ondansetron HCl (Ondansetron Hcl 4 Mg/2 Ml Vial) 4 mg IVPUSH Q8H PRN PRN Reason: Nausea and Vomiting Oxcarbazepine (Oxcarbazepine 300 Mg Tablet) 600 mg PO BID [facility] Oxycodone HCl (Oxycodone Hcl Immed Release 5 Mg Tablet) 5 mg PO Q4H PRN PRN Reason: Pain, Moderate(Pain Scale 4-6) Oxycodone HCl (Oxycodone Hcl Immed Release 5 Mg Tablet) 10 mg PO Q4H PRN PRN Reason: Pain, Severe (Pain Scale 7-10) Oxycodone HCl (Oxycodone Hcl Er 10 Mg Tab.Er.12h) 10 mg PO BID [facility] Pharmacy Consult (Consult Rx Vancomycin Dosing) 1 each MISCELLANE DAILY PRN PRN Reason: Consult order Sodium Chloride (0.9 % Sodium Chloride Flush 3 Ml Syringe) 3 ml IVFLUSH QSHIFT [facility] Home Medications ?Medication ?Instructions ?Recorded ?Confirmed ?Last Taken ?Type albuterol sulfate 90 mcg/actuation 1 inh inhalation Q4H PRN Shortness 08/01/23 10/30/23 Unknown History aerosol inhaler (Ventolin HFA) Of Breath Or Wheezing apixaban 5 mg tablet (Eliquis) 5 mg PO BID 08/01/23 10/30/23 10/25/23 History atorvastatin 80 mg tablet 80 mg PO BEDTIME 08/01/23 10/30/23 10/29/23 History buspirone 15 mg tablet 15 mg PO BID 08/01/23 10/30/23 10/29/23 History carvedilol 3.125 mg tablet 3.125 mg PO BID 08/01/23 10/30/23 10/30/23 History clonazepam 1 mg tablet 1 mg PO BID 08/01/23 10/30/23 10/30/23 History escitalopram oxalate 20 mg tablet 20 mg PO DAILY 08/01/23 10/30/23 10/29/23 History famotidine 20 mg tablet 20 mg PO BID 08/01/23 10/26/23 10/29/23 History hydroxyzine pamoate 25 mg capsule 25 mg PO TID PRN Anxiety 08/01/23 10/30/23 10/29/23 History linaclotide 145 mcg capsule 145 mcg PO DAILY 08/01/23 10/30/23 10/29/23 History (Linzess) mirabegron 50 mg tablet,extended 50 mg PO DAILY 08/01/23 10/30/23 10/29/23 History release 24 hr (Myrbetriq) omeprazole 20 mg capsule,delayed 20 mg PO DAILY@0630 08/01/23 10/30/23 10/30/23 History release oxcarbazepine 600 mg tablet 600 mg PO BID 08/01/23 10/30/23 10/29/23 History levothyroxine 25 mcg tablet 25 mcg PO DAILY@0600 10/19/23 10/30/23 10/30/23 History carvedilol 6.25 mg tablet 6.25 mg PO BID 10/20/23 10/30/23 10/30/23 History fluticasone 250 mcg-salmeterol 50 1 ea inhalation BID 10/20/23 10/30/23 10/30/23 History mcg/dose blistr powdr for inhalation (Darvin Harrell) tirzepatide 10 mg/0.5 mL 10 mg subcut QWEEK 10/20/23 10/30/23 10/17/23 History subcutaneous pen injector (Иван) fluticasone propionate 50 1 spray intranasal DAILY 10/30/23 Unknown History mcg/actuation nasal spray,suspension insulin glargine 100 unit/mL 34 unit subcut BEDTIME PRN pump 10/30/23 Unknown History subcutaneous solution (Lantus malfunction U-100 Insulin) trazodone 150 mg tablet 150 - 300 mg PO BEDTIME PRN 10/30/23 Unknown History Insomnia Physical Exam 2 Vital Signs and Narrative: Vital Signs: Last Vital Signs Temp 96.9 F 10/30/23 16:23 Pulse 64 10/30/23 16:23 Resp 18 10/30/23 16:23 BP 132/74 10/30/23 16:23 Pulse Ox 92 10/30/23 16:23 O2 Del Method Room Air 10/30/23 16:23 O2 Flow Rate 2 10/30/23 15:02 BMI result Body Mass Index 44.6 Constitutional - Awake and Alert, No apparent distress Eyes - PERRLA, EOMI Cardiovascular - S1S2, RRR, No edema Respiratory - Normal lung expansion, Normal respiratory effort, No respiratory distress, CTA bilaterally Gastrointestinal - NT / ND; +BS; No rebound or guarding Extremities - no calf tenderness bilaterally, no swelling Skin - Warm/Dry Neurological - Alert & oriented x3 Psychological - Appropriate affect Results Labs 10/20/23 11:32 10/20/23 11:32 Labs: Laboratory Results - last 24 hr 10/30/23 10/30/23 07:38 16:30 POC Glucose 140 H 213 H Assessment and Plan (1) Arthritis of right knee: Status: Acute Plan 62-year-old female with history of lithium induced chronic renal insufficiency, hypertension, history of DVT/chronic PE anticoagulated with Eliquis, bipolar disorder, SHAWN on CPAP, hyperlipidemia, fibromyalgia, hypothyroidism, insulin- dependent type 2 diabetes, asthma, who is morbidly obese with BMI greater than 44 admitted to Orthopedic surgery for management of osteoarthritis of the right knee s/p TKA with consult placed to hospitalist service for medical management. #OA R Knee s/p TKA POD 0 -plan per ortho surgery #Insulin dependent type 2 diabetes without hyperglycemia -uses insulin pump w/ humalog at home but is not wearing -20 units lantus bedtime, ssi -poc glucose, diabetic diet -resume pump on discharge # hypertension -continue Coreg # hypothyroidism -continue levothyroxine # history DVT/PE -continue Eliquis per Orthopedic surgery # mood disorder -continue home meds # unspecified asthma -continue maintenance inhalers, albuterol p.r.n. # GERD -continue PPI # hyperlipidemia -statin DVT prophylaxis-Eliquis per Orthopedic surgery Thank you for allowing me to participate in this consult. Signing off at this time. Please do not hesitate to call for further questions or for any acute medical issues.
[2023-10-30] MEDS: oxyCODONE HCl Immed Release 5 MG TABLET PO (17:18)
[2023-10-30] MEDS: methocarbamoL 750 MG TABLET PO ×2 (17:53→20:44)
[2023-10-30] MEDS: Apixaban 5 MG TABLET PO ×2 (17:53→20:45)
[2023-10-30] MEDS: ceFAZolin Sodium/Dextrose,Iso 2 GM/50 ML PIGGYBACK IV (17:55)
[2023-10-30] MEDS: HYDROmorphone HCl 0.5 MG/0.5 ML SYRINGE IVPUSH (18:44)
--- NOTE | 2023-10-30 19:13 | PHA.MEDREC ---
Pharmacy Consult ? Medication Reconciliation Pharmacy has reviewed the medication reconciliation completed by nursing. Spoke with patient. Patient last took Mounjaro 2 weeks ago, usually administers on Monday. Patient unsure of Lantus dose as it would only be used prn for pump failure.
[2023-10-30 19:57] LABS: Glucose, Whole Blood 236 mg/dL (60-115)
[2023-10-30] MEDS: Insulin Glargine,Hum.rec.anlog 100 UNIT/ML 10 ML VIAL 20 UNIT SUBCUT (20:42)
[2023-10-30] MEDS: Insulin Lispro 100 UNIT/ML 3 ML VIAL SUBCUT (20:43)
[2023-10-30] MEDS: Celecoxib 200 MG CAPSULE PO (20:44)
[2023-10-30] MEDS: busPIRone HCl 5 MG TABLET 15 MG PO (20:44)
[2023-10-30] MEDS: Gabapentin 100 MG CAPSULE PO (20:44)
[2023-10-30] MEDS: Atorvastatin Calcium 80 MG TABLET PO (20:45)
[2023-10-30] MEDS: clonazePAM 1 MG TABLET PO (20:45)
[2023-10-30] MEDS: OXcarbazepine 300 MG TABLET 600 MG PO (20:45)
[2023-10-30] MEDS: Docusate Sodium 100 MG CAPSULE PO (20:45)
[2023-10-30] MEDS: carvediloL 6.25 MG TABLET PO (20:47)
[2023-10-30] MEDS: carvediloL 3.125 MG TABLET PO (20:48)
[2023-10-30] MEDS: oxyCODONE HCl ER 10 MG TAB.ER.12H PO (20:49)
[2023-10-30] MEDS: oxyCODONE HCl Immed Release 5 MG TABLET 10 MG PO (22:07)
[2023-10-31] VITALS (7 sets, daily range): BP systolic 137–151; BP diastolic 60–67; PULSE 63–67; RESP 14–18; TEMP 36–36.1; O2SAT 93–96
[2023-10-31] MEDS: HYDROmorphone HCl 0.5 MG/0.5 ML SYRINGE IVPUSH ×3 (00:12→13:39)
[2023-10-31] MEDS: 0.9 % Sodium Chloride Flush 3 ML SYRINGE IVFLUSH (00:13)
[2023-10-31] MEDS: ceFAZolin Sodium/Dextrose,Iso 2 GM/50 ML PIGGYBACK IV ×2 (02:59→10:26)
[2023-10-31] MEDS: oxyCODONE HCl Immed Release 5 MG TABLET PO (03:46)
[2023-10-31] MEDS: Levothyroxine Sodium 25 MCG TABLET PO (05:15)
[2023-10-31] MEDS: Omeprazole 20 MG CAPSULE.DR PO (05:16)
[2023-10-31] MEDS: Lactated Ringers 1,000 ML 100 ML IVCONT ×2 (05:17→15:32)
[2023-10-31 07:14] LABS: Glucose, Whole Blood 230 mg/dL (60-115)
[2023-10-31] MEDS: busPIRone HCl 5 MG TABLET 15 MG PO ×2 (07:44→20:30)
[2023-10-31] MEDS: carvediloL 3.125 MG TABLET PO ×2 (07:44→20:32)
[2023-10-31] MEDS: Docusate Sodium 100 MG CAPSULE PO ×2 (07:44→20:33)
[2023-10-31] MEDS: Insulin Lispro 100 UNIT/ML 3 ML VIAL SUBCUT ×4 (07:44→20:45)
[2023-10-31] MEDS: methocarbamoL 750 MG TABLET PO ×3 (07:44→20:31)
[2023-10-31] MEDS: clonazePAM 1 MG TABLET PO ×2 (07:45→20:31)
[2023-10-31] MEDS: OXcarbazepine 300 MG TABLET 600 MG PO ×2 (07:45→20:31)
[2023-10-31] MEDS: Escitalopram Oxalate 20 MG TABLET PO (07:45)
[2023-10-31] MEDS: Mirabegron 50 MG TAB.ER.24H PO (07:45)
[2023-10-31] MEDS: Apixaban 5 MG TABLET PO ×2 (07:45→20:33)
[2023-10-31] MEDS: carvediloL 6.25 MG TABLET PO ×2 (07:45→20:31)
[2023-10-31] MEDS: Celecoxib 200 MG CAPSULE PO ×2 (07:45→20:31)
[2023-10-31] MEDS: oxyCODONE HCl ER 10 MG TAB.ER.12H PO ×2 (07:46→20:32)
[2023-10-31 08:17] LABS: MANUAL DIFF FLAG NO
[2023-10-31 08:21] LABS: Basophils Absolute Auto 0.1 X10*3/uL (0.0-0.2); Basophils Percent Auto 0.6 % (0-2); Eosinophils Percent Auto 0.1 % (0-4); Hematocrit 26.9 % (37.0-47.0); Hemoglobin 8.7 g/dl (12.0-16.0); Imm Gran Abs Auto 0.05 X10*3/uL (0.00-0.03); Imm Gran Pct Auto 0.6 % (0.0-0.4); Lymphocytes Absolute Auto 1.1 X10*3/uL (1.2-4.9); Lymphocytes Percent Auto 12.6 % (20-40); Mean Corpuscular HGB Conc 32.3 g/dl (31.0-35.0); Mean Corpuscular Hemoglobin 28.8 pg (27.0-33.0); Mean Corpuscular Volume 89.1 fL (80.0-98.0); Mean Platelet Volume 10.1 fL (9.4-12.3); Monocytes Absolute Auto 0.7 X10*3/uL (0.1-1.2); Monocytes Percent Auto 7.6 % (2-11); Neutrophils Absolute Auto 7.1 x10*3/uL (2.0-8.3); Neutrophils Percent Auto 78.5 % (45-73); Platelet Count 251 X10*3/uL (160-400); Red Blood Count 3.02 X10*6/uL (4.20-5.50); Red Cell Distribution Width 12.9 % (11.0-16.0)
[2023-10-31 08:38] LABS: Anion Gap 13 (12-20); Blood Urea Nitrogen 22 mg/dL (9-16); Calcium 8.7 mg/dL (8.4-10.2); Carbon Dioxide 23 mmol/L (22-29); Chloride 101 mmol/L (96-108); Creatinine Clr Calc Pharmacy 35.1; Estimated Glomerular Filt Rate 24; Glucose Fasting 249 mg/dL (60-99); Potassium 4.6 mmol/L (3.3-5.1); Sodium 132 mmol/L (135-145)
[2023-10-31] MEDS: oxyCODONE HCl Immed Release 5 MG TABLET 10 MG PO ×2 (10:26→15:36)
[2023-10-31 11:13] LABS: Glucose, Whole Blood 235 mg/dL (60-115)
--- NOTE | 2023-10-31 11:34 | HO.POSTANES ---
Post Anesthesia Evaluation Post Anesthesia Evaluation Date of Service: 10/31/23 Vital Signs: Vital Signs Temp Pulse Resp BP Pulse Ox O2 Del Method 10/31/23 07:13 97.0 F 67 18 137/67 96 Room Air 10/31/23 03:15 96.8 F 63 18 151/65 H 94 Room Air 10/31/23 00:10 96.9 F 64 16 139/64 94 CPAP Anesthesia: Spinal and Nerve Block Mental Status: Awake Pain Control: Satisfactory Nausea/Vomiting: None Hydration: Adequate Anesthesia-Related Issues: No Anes. Related Issues
--- NOTE | 2023-10-31 12:08 | P.PNOP_ITS ---
Subjective Subjective Date of Service: 10/31/23 Interval history: POD 1 s/p RT TKA no overnight events resting in chair after PT denies sob, palpitations, cp Physical Exam Vital Signs: Vital Signs: Last Vital Signs Temp 97.0 F 10/31/23 07:13 Pulse 67 10/31/23 07:13 Resp 18 10/31/23 07:13 BP 137/67 10/31/23 07:13 Pulse Ox 96 10/31/23 07:13 O2 Del Method Room Air 10/31/23 07:13 O2 Flow Rate 2 10/30/23 15:02 BMI result Body Mass Index 44.6 Const: General: cooperative, healthy appearing and no acute distress Resp: Effort & Inspection: normal respiratory effort and able to speak in complete sentences Cardio: Rate: regular rate Peripheral pulses: Peripheral pulses 2+ throughout GI: Palpation (GI): Soft to palpation Skin: General skin exam: no rashes or lesions noted Extrem: Other: bandage clean dry and intact. [place] intact. No erythema or joint effusion. Calf supple nontender. Neurovascularly intact. Procedures Date of Service Date of Service: 10/31/23 Progress Note: A&P Assessment and plan (1) Status post total right knee replacement: Status: Acute Assessment and Plan: * Continue pain mgmnt * Begin lovenox for dvt ppx * begin PT for RT TKA * Dispo planning-Pending PT eval, pain mgmnt Need for continued inpatient stay: Time Spent With Patient Time: Total time managing care of this patient today ____ minutes. Quality Stroke Does the patient have a stroke diagnosis?: No VTE Prior VTE?: No VTE Risk Level:: Surgical - very high VTE Device Contraindication: N/A - Device Ordered VTE Drug Contraindication: N/A - Med Ordered
--- NOTE | 2023-10-31 13:22 | MHC.CM.PN ---
IMM 10/31/23, Pt lives with her parents, whom she takes care of. HCP form will be completed here and added to chart. Pt. does not have home health services, for DME she has CPAP machine and walker. Family can provide transport home at DC. DCP: home with services, referrals are in, accepted by [facility]. CM will follow and assist with DC plan.
[2023-10-31 15:56] LABS: Glucose, Whole Blood 188 mg/dL (60-115)
[2023-10-31] MEDS: HYDROmorphone HCl 0.5 MG/0.5 ML SYRINGE 0.25 MG IVPUSH (19:25)
[2023-10-31] MEDS: Gabapentin 100 MG CAPSULE PO (20:31)
[2023-10-31] MEDS: Atorvastatin Calcium 80 MG TABLET PO (20:31)
[2023-10-31 20:38] LABS: Glucose, Whole Blood 165 mg/dL (60-115)
[2023-10-31] MEDS: Insulin Glargine,Hum.rec.anlog 100 UNIT/ML 10 ML VIAL 20 UNIT SUBCUT (20:45)
[2023-11-01] VITALS (9 sets, daily range): BP systolic 115–148; BP diastolic 56–71; PULSE 62–72; RESP 14–18; TEMP 36–36.4; O2SAT 93–98
[2023-11-01] MEDS: HYDROmorphone HCl 0.5 MG/0.5 ML SYRINGE IVPUSH ×3 (00:27→08:50)
[2023-11-01] MEDS: Lactated Ringers 1,000 ML 100 ML IVCONT (00:27)
[2023-11-01] MEDS: oxyCODONE HCl Immed Release 5 MG TABLET 10 MG PO (03:45)
[2023-11-01] MEDS: Levothyroxine Sodium 25 MCG TABLET PO (04:43)
[2023-11-01] MEDS: Omeprazole 20 MG CAPSULE.DR PO (04:43)
[2023-11-01 06:28] LABS: MANUAL DIFF FLAG NO
[2023-11-01 06:57] LABS: Anion Gap 9 (12-20); Basophils Absolute Auto 0.1 X10*3/uL (0.0-0.2); Basophils Percent Auto 1.1 % (0-2); Blood Urea Nitrogen 30 mg/dL (9-16); Calcium 8.4 mg/dL (8.4-10.2); Carbon Dioxide 26 mmol/L (22-29); Chloride 100 mmol/L (96-108); Creatinine Clr Calc Pharmacy 38.8; Eosinophils Absolute Auto 0.4 X10*3/uL (0.0-0.4); Eosinophils Percent Auto 4.5 % (0-4); Estimated Glomerular Filt Rate 27; Glucose Fasting 169 mg/dL (60-99); Hematocrit 23.7 % (37.0-47.0); Hemoglobin 7.8 g/dl (12.0-16.0); Imm Gran Abs Auto 0.05 X10*3/uL (0.00-0.03); Imm Gran Pct Auto 0.6 % (0.0-0.4); Lymphocytes Absolute Auto 2.3 X10*3/uL (1.2-4.9); Mean Corpuscular HGB Conc 32.9 g/dl (31.0-35.0); Mean Corpuscular Hemoglobin 29.5 pg (27.0-33.0); Mean Corpuscular Volume 89.8 fL (80.0-98.0); Mean Platelet Volume 10.1 fL (9.4-12.3); Monocytes Absolute Auto 0.6 X10*3/uL (0.1-1.2); Monocytes Percent Auto 7.2 % (2-11); Neutrophils Absolute Auto 4.8 x10*3/uL (2.0-8.3); Neutrophils Percent Auto 58.6 % (45-73); Platelet Count 223 X10*3/uL (160-400); Potassium 4.4 mmol/L (3.3-5.1); Red Blood Count 2.64 X10*6/uL (4.20-5.50); Red Cell Distribution Width 13.2 % (11.0-16.0); Sodium 131 mmol/L (135-145); White Blood Count 8.2 X10*3/uL (4.8-10.8)
[2023-11-01 07:26] LABS: Glucose, Whole Blood 161 mg/dL (60-115)
[2023-11-01] MEDS: Insulin Lispro 100 UNIT/ML 3 ML VIAL SUBCUT (07:58)
[2023-11-01] MEDS: oxyCODONE HCl ER 10 MG TAB.ER.12H PO (07:59)
[2023-11-01] MEDS: methocarbamoL 750 MG TABLET PO ×2 (07:59→14:14)
[2023-11-01] MEDS: Apixaban 5 MG TABLET PO (07:59)
[2023-11-01] MEDS: OXcarbazepine 300 MG TABLET 600 MG PO (08:00)
[2023-11-01] MEDS: carvediloL 3.125 MG TABLET PO (08:00)
[2023-11-01] MEDS: busPIRone HCl 5 MG TABLET 15 MG PO (08:00)
[2023-11-01] MEDS: Mirabegron 50 MG TAB.ER.24H PO (08:00)
[2023-11-01] MEDS: Docusate Sodium 100 MG CAPSULE PO (08:00)
[2023-11-01] MEDS: carvediloL 6.25 MG TABLET PO (08:00)
[2023-11-01] MEDS: clonazePAM 1 MG TABLET PO (08:00)
[2023-11-01] MEDS: Celecoxib 200 MG CAPSULE PO (08:00)
[2023-11-01] MEDS: Escitalopram Oxalate 20 MG TABLET PO (08:00)
--- NOTE | 2023-11-01 09:17 | PM.DS ---
DS: Providers Provider Date of Service: 11/01/23 Date of admission: 10/30/23 07:14 Primary care physician: Janak Greer MD Consults: 10/30/23 16:23 Consult to Hospitalist Routine Comment: Consulting Provider: Hospitalist Reason For Exam: Routine medical management, DM DS: Diagnosis Discharge Diagnosis (1) Status post total right knee replacement: Status: Acute DS: Summary Hospital Course Hospital Course: The patient underwent a successful right total knee arthroplasty, they were transferred to PACU and then to the floor to recover. During their stay, their vitals were stable, afebrile at 96.8. Labs were unremarkable, H/H 7.8/23.7 the patient was transfused 2 units of pRBC's priopr to discharge. POD 1 they resumed Eliquis at regular dose for DVT ppx, they also received Physical Therapy services twice a day. Prior to discharge, their dressing was clean dry and intact, and the plan was to be discharged home with VNA services. Time Attestation Discharge Coordination Time (in mins): 30 Quality: Safe Use of Opioids Does Pt have an Active Cancer Diagnosis on the Problem List?: No Quality: Stroke Does the patient have a stroke diagnosis?: No Physical Exam Vital Signs: Vital Signs: Last Vital Signs Temp 97.2 F 11/01/23 07:24 Pulse 62 11/01/23 07:24 Resp 16 11/01/23 07:24 BP 122/58 L 11/01/23 07:24 Pulse Ox 98 11/01/23 07:24 O2 Del Method Room Air 11/01/23 07:24 O2 Flow Rate 2 10/30/23 15:02 BMI result Body Mass Index 44.6 Const: General: cooperative, healthy appearing and no acute distress Resp: Effort & Inspection: normal respiratory effort and able to speak in complete sentences Cardio: Rate: regular rate Peripheral pulses: Peripheral pulses 2+ throughout GI: Palpation (GI): Soft to palpation Skin: Lesions: no lesions Rashes: no rashes Extrem: Other: right knee dressing is c/d/i. Able to dorsi/plantar flex. Calf is supple and nontender. Sensation intact. Pedal pulse intact. DS: Data Data Completed and Pending Pending studies at discharge: Pending at discharge 10/30/23 12:51 Surgical [PTH] Routine Labs on day of discharge: Laboratory Results - last 24 hr 10/31/23 10/31/23 10/31/23 11:04 15:52 20:26 WBC RBC Hgb Hct MCV MCH MCHC RDW Plt Count MPV Immature Gran % (Auto) Neut % (Auto) Lymph % (Auto) [place] % (Auto) Eos % (Auto) Baso % (Auto) Lymph # (Auto) [place] # (Auto) Eos # (Auto) Baso # (Auto) Abs Immat Gran (auto) Absolute Neuts (auto) Absolute Nucleated RBC Nucleated RBC % (auto) Sodium Potassium Chloride Carbon Dioxide Anion Gap BUN Creatinine Estim Creat Clear Calc Estimated GFR POC Glucose 235 H 188 H 165 H Fasting Glucose Calcium 11/01/23 11/01/23 05:43 07:23 WBC 8.2 RBC 2.64 L Hgb 7.8 L Hct 23.7 L MCV 89.8 MCH 29.5 MCHC 32.9 RDW 13.2 Plt Count 223 MPV 10.1 Immature Gran % (Auto) 0.6 H Neut % (Auto) 58.6 Lymph % (Auto) 28.0 [place] % (Auto) 7.2 Eos % (Auto) 4.5 H Baso % (Auto) 1.1 Lymph # (Auto) 2.3 [place] # (Auto) 0.6 Eos # (Auto) 0.4 Baso # (Auto) 0.1 Abs Immat Gran (auto) 0.05 H Absolute Neuts (auto) 4.8 Absolute Nucleated RBC 0.000 Nucleated RBC % (auto) 0.0 Sodium 131 L Potassium 4.4 Chloride 100 Carbon Dioxide 26 Anion Gap 9 L BUN 30 H Creatinine 1.92 H Estim Creat Clear Calc 38.8 Estimated GFR 27 POC Glucose 161 H Fasting Glucose 169 H Calcium 8.4 Discharge Plan Discharge Anticipated Discharge Date/Time: 11/01/23 11:39 Patient Disposition: Home Health Service Discharge Diagnosis: s/p RTKA Referrals: Sis Lehman PA-C [Physician Communication Consultant] - 11/16/23 1:15 pm Discharge Medications: New methocarbamol 750 mg Tablet 750 mg PO TID 7 Days Qty: 21 0RF acetaminophen 325 mg Tablet 650 mg PO Q6H PRN (Reason: Pain, Mild (Pain Scale 1-3), fever or headache) 30 Days Qty: 240 0RF celecoxib 200 mg Capsule 200 mg PO BID 30 Days Qty: 60 0RF docusate sodium 100 mg Capsule 100 mg PO BID 30 Days Qty: 60 0RF gabapentin 100 mg Capsule 100 mg PO BEDTIME 7 Days Qty: 7 0RF oxycodone 5 mg Tablet 10 mg PO Q4H PRN (Reason: Pain, Severe (Pain Scale 7-10)) 7 Days Qty: 42 0RF Rx Instructions: Partial Fill upon patient request. Continued (DME) nicole [facility] See Rx Instructions .ROUTE .MEDSUPPLY Qty: 1 0RF Rx Instructions: Folding front wheeled walker levothyroxine 25 mcg Tablet 25 mcg PO DAILY@0600 carvedilol 6.25 mg tablet 6.25 mg PO BID Mounjaro 10 mg/0.5 mL Pen Injector 10 mg SUBCUT @0900 Rx Instructions: takes on Tuesdays fluticasone propion-salmeterol [Wixela Inhub] 250-50 mcg/dose blister with device 1 ea INHALATION BID insulin glargine [Lantus U-100 Insulin] 100 unit/mL solution 0 unit subcut BEDTIME PRN (Reason: pump malfunction) Rx Instructions: Pt is not sure on dose for Lantus, this is only would used for pump failure fluticasone propionate 50 mcg/actuation spray,suspension 1 spray intranasal DAILY trazodone 150 mg tablet 150 mg PO BEDTIME atorvastatin 80 mg tablet 80 mg PO BEDTIME buspirone 15 mg tablet 15 mg PO BID carvedilol 3.125 mg tablet 3.125 mg PO BID clonazepam 1 mg tablet 1 mg PO BID escitalopram oxalate 20 mg tablet 20 mg PO DAILY famotidine 20 mg tablet 20 mg PO BID Myrbetriq 50 mg tablet extended release 24 hr 50 mg PO DAILY Eliquis 5 mg tablet 5 mg PO BID omeprazole 20 mg capsule,delayed release(DR/EC) 20 mg PO DAILY@0630 oxcarbazepine 600 mg tablet 600 mg PO BID Linzess 145 mcg capsule 145 mcg PO DAILY hydroxyzine pamoate 25 mg capsule 25 mg PO TID PRN (Reason: Anxiety) albuterol sulfate [Ventolin HFA] 90 mcg/actuation HFA aerosol inhaler 1 inh inhalation Q4H PRN (Reason: Shortness Of Breath Or Wheezing) Discontinued acetaminophen 325 mg Tablet 650 mg PO QID PRN (Reason: Pain) Discharge Orders: Discharge Order (Routine); Ordered 11/01/23 Ordered By: Sis Lehman Diet: Advance to usual diet Activity on Discharge: Use cane or walker Stand Alone Forms: Patient Portal Discharge page Print Language: Tanzanian Care Plan Goals: restore fxn to right knee Health Concerns: None Plan of Treatment: Physical Therapy for ROM 0-120, quad strength, gait training. Use walker for ambulation Limit stair climbing, No shower, No tub bath, No driving Continue anticoagulant x 6 weeks Keep Aquacel dressing clean, dry and intact. Follow up with orthopedics in 2 weeks Assessment: stable for d/c
--- NOTE | 2023-11-01 09:19 | P.F2F_ITS ---
Service Date Service Date: 11/01/23 Encounter Date of encounter: 11/01/23 Reasons for Services Signs and symptoms assessed: s/p RTKA Pt. is considered homebound due to recent surgery. Unable to drive, poor balance, poor gait mechanics. Reason for physical therapy: home safety and mobility, therapeutic exercises, restore joint function, gait/transfer training, assess need for DME and ADL training Homebound: Leaving the home is medically contraindicated at this time without the asist of a device and/or another person due th the listed conditions above and below. Reason homebound: unsteady gait / fall risk, leg weakness, pain with transfers, poor balance / fall risk and unable to drive Certification: Based on the above findings, I certify that this patient is confined to the home and needs intermittent long-term care, physical therapy and/or speech the rapy, or continues to need occupational therapy. The patient is under my care, and I have initiated the establishment of the plan of care. The patient will be followed by a physician who will periodically review the plan of care. Time Spent With Patient Time: Total time managing care of this patient today ____ minutes.
--- NOTE | 2023-11-01 10:20 | MHC.CM.PN ---
Patient medically cleared for dc home w/ services. [facility] will provide PT. Sister/Brother in law will transport home. RN aware.
[2023-11-01 11:16] LABS: Glucose, Whole Blood 148 mg/dL (60-115)
[2023-11-01] MEDS: HYDROmorphone HCl 0.5 MG/0.5 ML SYRINGE 0.25 MG IVPUSH (12:51)
[2023-11-01] MEDS: oxyCODONE HCl Immed Release 5 MG TABLET PO (14:14)
[2023-11-01 16:36] LABS: Glucose, Whole Blood 160 mg/dL (60-115)
== END 2023-11-01 16:58 | disposition home health service (06) | DRG 470 ==
LOC: HO.SSSA 07:23 → HO.S3 15:35
PROVIDERS: Nurse Practitioner; Orthopaedic Surgery; Admitting Provider Physician Assistant; PCP Internal Medicine; Visit Provider Physician Assistant
PROC: 0SRC0J9 Replacement of Right Knee Joint with Synthetic Substitute, Cemented, Open Approach (ICD-10-PCS; CPT 27447; principal; 2023-10-30 10:30)
DX: M17.11 Unilateral primary osteoarthritis, right knee (principal); Z68.41 Body mass index [BMI] 40.0-44.9, adult; G47.33 Obstructive sleep apnea (adult) (pediatric); E03.9 Hypothyroidism, unspecified; E66.01 Morbid (severe) obesity due to excess calories; J45.909 Unspecified asthma, uncomplicated; E11.22 Type 2 diabetes mellitus with diabetic chronic kidney disease; I12.9 Hypertensive chronic kidney disease with stage 1 through stage 4 chronic kidney disease, or unspecified chronic kidney disease; N18.9 Chronic kidney disease, unspecified; G89.18 Other acute postprocedural pain; Z87.891 Personal history of nicotine dependence; Z86.718 Personal history of other venous thrombosis and embolism; Z86.711 Personal history of pulmonary embolism; Z79.4 Long term (current) use of insulin; Z79.01 Long term (current) use of anticoagulants; Z79.890 Hormone replacement therapy; Z79.899 Other long term (current) drug therapy
CPT/HCPCS: 36415; 80048; 82947; 85025; 85027; 86850; 86900; 86901; 86923; 87640; 87641; 88305; 88311; 97110; 97116; 97161; C1776; J0131; J0665; J0690; J1100; J1170; J2250; J2704; J3370; J7120; P9016

== ENCOUNTER → 2023-10-30 07:14 | Outpatient (BNV) | payer MEDICARE, MEDICAID, SELFPAY | PROVIDERS: Admitting Provider Physician Assistant; PCP Internal Medicine; Visit Provider Physician Assistant | DX: M17.11 Unilateral primary osteoarthritis, right knee (principal) | CPT/HCPCS: 99222 ==

== ENCOUNTER → 2023-10-30 07:14 | Outpatient (BNV) | payer MEDICARE, MEDICAID, SELFPAY | PROVIDERS: Admitting Provider Physician Assistant; PCP Internal Medicine; Visit Provider Orthopaedic Surgery | DX: Z47.1 Aftercare following joint replacement surgery (principal); Z96.651 Presence of right artificial knee joint | CPT/HCPCS: 27447; 99024; G0180 ==

== ENCOUNTER 2023-11-07 12:18 | Outpatient (AMB) | payer MEDICARE, MEDICAID, SELFPAY ==
--- NOTE | 2023-11-07 12:43 | A.OFFVIS_ITS ---
Intake Visit Reasons: PO-Right TKA w/ 10/30/23-bandage change Intake Note: Esperanza is a 62 year old female who presents today for a post operative bandage change s/p Right TKA 10/30/[address] Jordan. Patient reports that she was at physical therapy when they expressed concern of increased drainage of the incision. Dressing was removed and incision site was cleaned with chloraprep. She expresses that she has been having significant soreness and bruising that has traveled down the leg to the ankle and foot. Allergies No Known Allergies Allergy (Verified 11/07/23 12:44) HPI HPI PO-Right TKA w/ 10/30/23-bandage change: Details: 62-year-old female who presents in the office today for a bandage change; 8 days status post right total knee arthroplasty which was performed on 10/30/[address] Jordan. I last saw the patient on 11/01/23 when she was encouraged to continue physical therapy for ROM, quad strengthening and gait training. It was recommended for her to use a walker for ambulation. While in the office today, the patient reports physical therapy expressed concerns about increased drainage from the incision. The dressing was removed and the incision site was cleaned with ChloraPrep. She reports significant soreness and ecchymosis traveling down the right ankle and foot. The patient is on Eliquis 5 mg PO BID for anticoagulation. [facility] Medical History Arthritis of right knee Fatty liver Asthma Hypothyroid DVT (deep venous thrombosis) Fibromyalgia HTN (hypertension) Chronic renal insufficiency Type 2 diabetes mellitus Bipolar disorder Depression Morbid obesity Chronic pulmonary embolism Sleep apnea GERD (gastroesophageal reflux disease) Elevated cholesterol Surgical History History of esophagogastroduodenoscopy (EGD) H/O colonoscopy Hx of inguinal hernia repair Hx of sinus surgery Hx of shoulder surgery Hx of umbilical hernia repair Hx of arthroscopy of right knee History of bladder suspension procedure Hx of tonsillectomy H/O: hysterectomy History of ankle surgery Social History Household Members: Family Household Members Other:: takes care of parents Housing: House Are you a primary career placement services counselor to a significant other at home: No Do you presently have visiting nurse or other home services: No Patient Tobacco Use Status: Former Tobacco user Tobacco use type: Cigarette Years Smoked: 30 service: No Review of Systems Const All systems reviewed & are unremarkable except as noted in HPI and below Physical Exam Const General: cooperative, healthy appearing and no acute distress Resp Effort & Inspection: normal respiratory effort and able to speak in complete sentences Cardio Rate: regular rate Peripheral pulses: Peripheral pulses 2+ throughout GI Palpation (GI): Soft to palpation Skin Lesions: no lesions Rashes: no rashes Extrem Other: Right knee: Incision sites are clean, dry, and intact. Petar intact. No surrounding erythema or drainage. No signs of infection. Aquacel dressing was saturated with serosanguinous and bloody discharge. NVI. Assessment & Plan Assessment & Plan (1) Status post total right knee replacement: Code(s): Z96.651 - Presence of right artificial knee joint Category: Surgical Plan is a 62-year-old female who presents in the office today for a bandage change; 8 days status post right total knee arthroplasty which was performed on 10/30/[address] Jordan. I last saw the patient on 11/01/23 when she was encouraged to continue physical therapy for ROM, quad strengthening and gait training. It was recommended for her to use a walker for ambulation. While in the office today, the patient reports physical therapy expressed concerns about increased drainage from the incision. The dressing was removed and the incision site was cleaned with ChloraPrep. She reports significant soreness and ecchymosis traveling down the right ankle and foot. The incision site was cleaned and ACTICOAT dressing was applied. Petar will remain in place until the next follow-up appointment which is scheduled on 11/16/23. She was prescribed oxycodone postoperatively, however, her insurance company did not cover the full prescription. I did find the patient?s insurance does have hydrocodone listed as a formulary prescription. Therefore, I sent hydrocodone 10 mg one tablet Q4-6H PRN to the pharmacy. Follow-up will be at her scheduled follow-up appointment, or sooner if needed. Medications: New hydrocodone-acetaminophen 10-325 mg Partial Fill upon patient request. 1 tab PO Q4-6H PRN 42 tabs 0RF pain 7 days Patient Instructions: Scribed by Stephanie Andujar, biomedical engineer, for Sis Lehman PA-C on 11/07/23 at 12:58 pm EST. Coding Level of Care Code Global (52688) Diagnoses Status post total right knee replacement Z96.651
== END 2023-11-07 14:53 | disposition home or self-care (01) ==
LOC: HO.HOS 12:18
PROVIDERS: PCP Internal Medicine; Visit Provider Physician Assistant
DX: Z96.651 Presence of right artificial knee joint (principal)
CPT/HCPCS: 99024

== ENCOUNTER → 2023-11-07 12:18 | Outpatient (BNVA) | payer MEDICARE, MEDICAID, SELFPAY | PROVIDERS: PCP Internal Medicine; Visit Provider Physician Assistant | DX: Z47.1 Aftercare following joint replacement surgery (principal); Z96.651 Presence of right artificial knee joint | CPT/HCPCS: 99212 ==

== ENCOUNTER 2023-11-16 11:13 | Outpatient (REF) | payer MEDICARE, MEDICAID, SELFPAY | END 2023-11-16 11:14 | disposition home or self-care (01) | LOC: HO.HOSX 11:13 | PROVIDERS: Visit Provider Physician Assistant | DX: M25.569 Pain in unspecified knee (principal); Z96.651 Presence of right artificial knee joint | CPT/HCPCS: 73560; 73562; 99212 ==

== ENCOUNTER 2023-11-16 13:15 | Outpatient (AMB) | payer MEDICARE, MEDICAID, SELFPAY ==
--- NOTE | 2023-11-16 13:34 | MHC.OFFVIS ---
Intake Visit Reasons: 2WK PO: R TKA w/ 10/30/23 Intake Note: Esperanza is a 62 year old female who presents today for a post op appointment s/p Right TKA 10/30/23 NE. Patient states that she has pain in her knee all the down to her foot. There is swelling in her foot. Patient is still taking her pain meds as needed and doing her daily in home exercises. Allergies No Known Allergies Allergy (Verified 11/16/23 13:41) HPI HPI 2WK PO: R TKA w/ 10/30/23: Details: 62-year-old female who presents in the office today for a 2 weeks status post right total knee arthroplasty which was performed on 10/30/[address] Jordan. I last saw the patient in the office on 11/07/23 when the surgical site was cleaned and an acticoat dressing was applied. She was prescribed hydrocodone 10 mg one tablet Q4-6H PRN for pain. While in the office today, the patient reports right knee pain radiating down to the right foot. She also mentions right foot edema. Patient is still taking her pain medication as needed. She affirms doing her daily home exercises. [facility] Medical History Arthritis of right knee Fatty liver Asthma Hypothyroid DVT (deep venous thrombosis) Fibromyalgia HTN (hypertension) Chronic renal insufficiency Type 2 diabetes mellitus Bipolar disorder Depression Morbid obesity Chronic pulmonary embolism Sleep apnea GERD (gastroesophageal reflux disease) Elevated cholesterol Surgical History History of esophagogastroduodenoscopy (EGD) H/O colonoscopy Hx of inguinal hernia repair Hx of sinus surgery Hx of shoulder surgery Hx of umbilical hernia repair Hx of arthroscopy of right knee History of bladder suspension procedure Hx of tonsillectomy H/O: hysterectomy History of ankle surgery Social History Household Members: Family Household Members Other:: takes care of parents Housing: House Are you a primary daycare provider to a significant other at home: No Do you presently have visiting nurse or other home services: No Patient Tobacco Use Status: Former Tobacco user Tobacco use type: Cigarette Years Smoked: 30 service: No Review of Systems Const All systems reviewed & are unremarkable except as noted in HPI and below Physical Exam Const General: cooperative, healthy appearing and no acute distress Resp Effort & Inspection: normal respiratory effort and able to speak in complete sentences Cardio Rate: regular rate Peripheral pulses: Peripheral pulses 2+ throughout GI Palpation (GI): Soft to palpation Skin Lesions: no lesions Rashes: no rashes Extrem Other: Right knee: Incision site is clean, dry, and intact. Petar intact. No surrounding erythema or drainage. No signs of infection. ROM is 0-110 degrees. Assessment & Plan Assessment & Plan (1) Status post total right knee replacement: Code(s): Z96.651 - Presence of right artificial knee joint Category: Surgical Plan Ms. Dean is a 62-year-old female who presents in the office today for a 2 weeks status post right total knee arthroplasty which was performed on 10/30/[address] Jordan. I last saw the patient in the office on 11/07/23 when the surgical site was cleaned and an acticoat dressing was applied. She was prescribed hydrocodone 10 mg one tablet Q4-6H PRN for pain. While in the office today, the patient reports right knee pain radiating down to the right foot. She also mentions right foot edema. Patient is still taking her pain medication as needed. She affirms doing her daily home exercises. Petar were removed, and steri-strips were applied. I sent a prescription for amoxicillin 2000 mg PO one hour prior dental work prophylactically for possible dental work in the future. However, the patient was educated they should not have any major dental work for the first 3 months post op after the right total knee arthroplasty. Follow up will be in [address] Jordan, or sooner if needed. X-rays of the right knee which were obtained while in the office today and were reviewed by me, Sis Lehman PA-C, revealed: Total joint arthroplasty and proper alignment. Orders: Orders XR knee LT 1V Today M25.569 - Pain in unspecified knee Medications: New amoxicillin 2,000 mg (4 x 500 mg) PO ONCE 1 day 4 tabs 0RF take 4 tabs by mouth 1 hour prior to dental ppx Patient Instructions: Scribed by Stephanie Andujar, biomedical engineering technician, for Sis Lehman PA-C on 11/16/23 at 1:25 pm EST. Coding Level of Care Code Global (34453) Diagnoses Status post total right knee replacement Z96.651
== END 2023-11-16 14:15 | disposition home or self-care (01) ==
PROVIDERS: PCP Internal Medicine; Visit Provider Physician Assistant
DX: Z96.651 Presence of right artificial knee joint (principal)
CPT/HCPCS: 99024

== ENCOUNTER 2023-12-04 12:16 | Outpatient (REF) | payer MEDICARE, MEDICAID, SELFPAY ==
--- NOTE | ~2023-12-04 | XR_ITS ---
EXAMINATION: Bilateral knee series CLINICAL INFORMATION: Pain in the knee COMPARISON: X-rays of the knees November 16, 2023 TECHNIQUE: AP upright of both knees. Additional lateral and patellofemoral view of the right knee FINDINGS: Right knee: There is a total knee arthroplasty in place. The components are in the usual position and are unchanged. There is no periprosthetic fracture or surrounding abnormal lucency. There is no effusion. The surrounding soft tissues are normal. Skin marla have been removed. Left knee Limited AP upright The medial and lateral compartments and surrounding bone and soft tissues are normal. XR/XR knee LT 1V IMPRESSION: Right total knee arthroplasty without change or complication by x-ray. Limited left knee normal Electronically signed by: Javad Ruth MD 12/09/2023 08:42 AM EDT RP
--- NOTE | ~2023-12-04 | XR_ITS ---
EXAMINATION: Bilateral knee series CLINICAL INFORMATION: Pain in the knee COMPARISON: X-rays of the knees November 16, 2023 TECHNIQUE: AP upright of both knees. Additional lateral and patellofemoral view of the right knee FINDINGS: Right knee: There is a total knee arthroplasty in place. The components are in the usual position and are unchanged. There is no periprosthetic fracture or surrounding abnormal lucency. There is no effusion. The surrounding soft tissues are normal. Skin marla have been removed. Left knee Limited AP upright The medial and lateral compartments and surrounding bone and soft tissues are normal. XR/XR knee RT 3V IMPRESSION: Right total knee arthroplasty without change or complication by x-ray. Limited left knee normal Electronically signed by: Javad Ruth MD 12/09/2023 08:42 AM EDT RP
== END 2023-12-04 12:17 | disposition home or self-care (01) ==
LOC: HO.HOSX 12:16
PROVIDERS: Visit Provider Physician Assistant
DX: Z47.1 Aftercare following joint replacement surgery (principal); M25.561 Pain in right knee; Z96.651 Presence of right artificial knee joint
CPT/HCPCS: 73560; 73562; 99212

== ENCOUNTER 2023-12-04 12:30 | Outpatient (AMB) | payer MEDICARE, MEDICAID, SELFPAY ==
--- NOTE | 2023-12-04 12:54 | A.OFFVIS_ITS ---
Intake Visit Reasons: PO - Right TKA 10/30/23 Intake Note: Esperanza is a 63 year old female who presents today for a evaluation of her Right TKA 10/30/23 . Patient reports that she heard her knee pop twice on 11/30/23, she felt pain and had swelling. Her pain is located at the anterior/medial aspect of knee. She has tenderness in her lower leg. She continues to attend PT. Allergies No Known Allergies Allergy (Verified 12/04/23 12:57) HPI HPI PO - Right TKA 10/30/23 DR: Details: 63-year-old female who presents in the office today 5 weeks status post right total knee arthroplasty, which was performed on 10/30/[address] Jordan. I last saw the patient in the office on 11/16/23, when she was prescribed amoxicillin for further dental work if needed. While in the office today, the patient reports experiencing right knee pain, which is located at the anterior/medial aspect of the knee. She also reports edema in her right knee. She states she heard a pop in her right knee twice on 11/30/23. She has tenderness in her right lower extremity. She continues to attend physical therapy. [facility] Medical History Arthritis of right knee Fatty liver Asthma Hypothyroid DVT (deep venous thrombosis) Fibromyalgia HTN (hypertension) Chronic renal insufficiency Type 2 diabetes mellitus Bipolar disorder Depression Morbid obesity Chronic pulmonary embolism Sleep apnea GERD (gastroesophageal reflux disease) Elevated cholesterol Surgical History History of esophagogastroduodenoscopy (EGD) H/O colonoscopy Hx of inguinal hernia repair Hx of sinus surgery Hx of shoulder surgery Hx of umbilical hernia repair Hx of arthroscopy of right knee History of bladder suspension procedure Hx of tonsillectomy H/O: hysterectomy History of ankle surgery Social History Household Members: Family Household Members Other:: takes care of parents Housing: House Are you a primary managed care manager to a significant other at home: No Do you presently have visiting nurse or other home services: No Patient Tobacco Use Status: Former Tobacco user Tobacco use type: Cigarette Years Smoked: 30 service: No Review of Systems Const All systems reviewed & are unremarkable except as noted in HPI and below Physical Exam Const General: cooperative, healthy appearing and no acute distress Resp Effort & Inspection: normal respiratory effort and able to speak in complete sentences Cardio Rate: regular rate Peripheral pulses: Peripheral pulses 2+ throughout GI Palpation (GI): Soft to palpation Skin Lesions: no lesions Rashes: no rashes Extrem Other: Right knee: Incision site is clean, dry, and intact. No surrounding erythema or drainage. No signs of infection. No palpable defect at the quad tendon or patellar tendon. ROM is 0-100 degrees. NVI. Assessment & Plan Assessment & Plan (1) Status post total right knee replacement: Code(s): Z96.651 - Presence of right artificial knee joint Category: Surgical Plan Ms. Dean is a 63-year-old female who presents in the office today 5 weeks status post right total knee arthroplasty, which was performed on 10/30/[address] Jordan. I last saw the patient in the office on 11/16/23, when she was prescribed amoxicillin for further dental work if needed. While in the office today, the patient reports experiencing right knee pain, which is located at the anterior/medial aspect of the knee. She also reports edema in her right knee. She states she heard a pop in her right knee twice on 11/30/23. She has tenderness in her right lower extremity. She continues to attend physical therapy. The patient may continue physical therapy activities; however, I want the patient to focus on rest and recovery for the next few days. She was encouraged to apply ice and to take anti-inflammatories as needed. She can continue to take Tylenol and oxycodone for pain management. Follow-up will be with Dr. Jordan at her normally scheduled follow-up appointment on 12/07/23, or sooner if needed. X-rays of the right knee, which were obtained while in the office today and were reviewed by me, Sis Lehman PA-C, revealed: Negative for hardware loosening or acute fracture or dislocation. Orders: Orders XR knee RT 3V Today M25.569 - Pain in unspecified knee XR knee LT 1V Today M25.569 - Pain in unspecified knee Patient Instructions: Scribed by Stephanie Andujar, medical detailist, for Sis Lehman PA-C on 12/04/23 at 1:02 pm EST. Coding Level of Care Code Global (81263) Diagnoses Status post total right knee replacement Z96.651
== END 2023-12-04 14:01 | disposition home or self-care (01) ==
PROVIDERS: PCP Internal Medicine; Visit Provider Physician Assistant
DX: Z96.651 Presence of right artificial knee joint (principal)
CPT/HCPCS: 99024

== ENCOUNTER 2023-12-07 09:15 | Outpatient (AMB) | payer MEDICARE, MEDICAID, SELFPAY ==
--- NOTE | 2023-12-07 09:17 | MHC.OFFVIS ---
Intake Visit Reasons: 6WK PO: R TKA w/ 10/30/23 Intake Note: Esperanza is a 63 year old female who presents with complaints of mild to moderate discomfort in her right knee after undergoing right total knee replacement surgery on 10/30/2023. She continues to go to formal physical therapy at [facility] in [place]. She denies any fevers or chills. Allergies No Known Allergies Allergy (Verified 12/07/23 09:18) Medication List - Last Reconciled 12/07/23 by Anup Jordan MD acetaminophen 650 mg (2 x 325 mg) PO Q6H PRN 30 days albuterol sulfate 90 mcg/actuation (Ventolin HFA) 1 inh inhalation Q4H PRN amoxicillin 2,000 mg (4 x 500 mg) PO ONCE 1 day apixaban (Eliquis) 5 mg PO BID atorvastatin 80 mg PO BEDTIME buspirone 15 mg PO BID carvedilol 6.25 mg PO BID carvedilol 3.125 mg PO BID celecoxib 200 mg PO BID 30 days clonazepam 1 mg PO BID docusate sodium 100 mg PO BID 30 days escitalopram oxalate 20 mg PO DAILY famotidine 20 mg PO BID fluticasone propion-salmeterol 250-50 mcg/dose (Wixela Inhub) 1 ea inhalation BID fluticasone propionate 50 mcg/actuation 1 spray intranasal DAILY gabapentin 100 mg PO BEDTIME 7 days hydrocodone-acetaminophen 10-325 mg 1 tab PO Q4-6H PRN 7 days hydroxyzine pamoate 25 mg PO TID PRN insulin glargine (Lantus U-100 Insulin) Pt is not sure on dose for Lantus, this is only would used for pump failure levothyroxine 25 mcg PO DAILY@0600 linaclotide (Linzess) 145 mcg PO DAILY methocarbamol 750 mg PO TID 7 days mirabegron ER (Myrbetriq) 50 mg PO DAILY omeprazole 20 mg PO DAILY@0630 oxcarbazepine 600 mg PO BID oxycodone 5 mg PO Q6H PRN 7 days oxycodone 10 mg (2 x 5 mg) PO Q4H PRN 7 days tirzepatide (Mounjaro) 10 mg subcut TU@0900 trazodone 150 mg PO BEDTIME walker Folding front wheeled walker [facility] Medical History Arthritis of right knee Fatty liver Asthma Hypothyroid DVT (deep venous thrombosis) Fibromyalgia HTN (hypertension) Chronic renal insufficiency Type 2 diabetes mellitus Bipolar disorder Depression Morbid obesity Chronic pulmonary embolism Sleep apnea GERD (gastroesophageal reflux disease) Elevated cholesterol Surgical History History of esophagogastroduodenoscopy (EGD) H/O colonoscopy Hx of inguinal hernia repair Hx of sinus surgery Hx of shoulder surgery Hx of umbilical hernia repair Hx of arthroscopy of right knee History of bladder suspension procedure Hx of tonsillectomy H/O: hysterectomy History of ankle surgery Social History Household Members: Family Household Members Other:: takes care of parents Housing: House Are you a primary manager respiratory care to a significant other at home: No Do you presently have visiting nurse or other home services: No Patient Tobacco Use Status: Former Tobacco user Tobacco use type: Cigarette Years Smoked: 30 service: No Physical Exam Extrem Other: Right knee examination shows that the surgical incision is well healed, no erythema, full active extension and flexion to 120 degrees, her patella tracks Assessment & Plan Assessment & Plan (1) Right knee pain: Code(s): M25.561 - Pain in right knee Category: Medical Plan Ms. Dean continues to do well after undergoing right total knee replacement surgery on 10/30/2023. She will continue going to formal physical therapy for now. She will gradually transition to a home exercise program. She does know to take antibiotics before any dental work. She will contact me prior to her follow-up appointment in 2 months should any questions or concerns arise. Feel free to call me at any time should questions regarding her orthopedic management arise. Medications: Refilled oxycodone Partial Fill upon patient request. 5 mg PO Q6H PRN 28 tabs 0RF pain 7 days Z96.652 - Presence of left artificial knee joint Coding Level of Care Code Global (59381) Diagnoses Right knee pain M25.561
== END 2023-12-07 09:38 | disposition home or self-care (01) ==
PROVIDERS: PCP Internal Medicine; Visit Provider Orthopaedic Surgery
DX: M25.561 Pain in right knee (principal)
CPT/HCPCS: 99024

== ENCOUNTER → 2023-12-07 09:15 | Outpatient (BNVA) | payer MEDICARE, MEDICAID, SELFPAY | PROVIDERS: PCP Internal Medicine; Visit Provider Orthopaedic Surgery | DX: M17.11 Unilateral primary osteoarthritis, right knee (principal); Z47.1 Aftercare following joint replacement surgery; Z96.651 Presence of right artificial knee joint | CPT/HCPCS: 99212; J2003; J7323 ==

== ENCOUNTER 2024-01-18 10:58 | Outpatient (AMB) | payer MEDICARE, MEDICAID, SELFPAY ==
--- NOTE | 2024-01-18 11:03 | A.OFFVIS_ITS ---
Vital Signs 01/18/24 11:05 Height 5 ft 4 in Weight 240 lb BMI 41.2 Intake Visit Reasons: PO: R TKA w/DR 10/30/23 Intake Note: Esperanza is a 63 year old female who presents today for a post operative visit s/p right TKA 10/30/23. She reports mild intermittent discomfort in her right knee. She continues with her home exercise program. She denies any fevers or chills. Allergies No Known Allergies Allergy (Verified 01/18/24 11:05) Medication List - Last Reconciled 01/18/24 by Anup Jordan MD acetaminophen 650 mg (2 x 325 mg) PO Q6H PRN 30 days albuterol sulfate 90 mcg/actuation (Ventolin HFA) 1 inh inhalation Q4H PRN amoxicillin 2,000 mg (4 x 500 mg) PO ONCE 1 day apixaban (Eliquis) 5 mg PO BID aripiprazole 5 mg PO DAILY atorvastatin 80 mg PO BEDTIME carvedilol 6.25 mg PO BID carvedilol 3.125 mg PO BID clonazepam 1 mg PO BID escitalopram oxalate 25 mg PO DAILY famotidine 20 mg PO BID fluticasone propion-salmeterol 250-50 mcg/dose (Wixela Inhub) 1 ea inhalation BID fluticasone propionate 50 mcg/actuation 1 spray intranasal DAILY insulin glargine (Lantus U-100 Insulin) Pt is not sure on dose for Lantus, this is only would used for pump failure levothyroxine 25 mcg PO DAILY@0600 linaclotide (Linzess) 145 mcg PO DAILY mirabegron ER (Myrbetriq) 50 mg PO DAILY omeprazole 20 mg PO DAILY@0630 oxcarbazepine 600 mg PO BID oxycodone 5 mg PO Q24H PRN tirzepatide (Mounjaro) 10 mg subcut TU@0900 trazodone 150 mg PO BEDTIME walker Folding front wheeled walker [facility] Medical History Arthritis of right knee Fatty liver Asthma Hypothyroid DVT (deep venous thrombosis) Fibromyalgia HTN (hypertension) Chronic renal insufficiency Type 2 diabetes mellitus Bipolar disorder Depression Morbid obesity Chronic pulmonary embolism Sleep apnea GERD (gastroesophageal reflux disease) Elevated cholesterol Surgical History History of esophagogastroduodenoscopy (EGD) H/O colonoscopy Hx of inguinal hernia repair Hx of sinus surgery Hx of shoulder surgery Hx of umbilical hernia repair Hx of arthroscopy of right knee History of bladder suspension procedure Hx of tonsillectomy H/O: hysterectomy History of ankle surgery Social History Household Members: Family Household Members Other:: takes care of parents Housing: House Are you a primary personal caregiver to a significant other at home: No Do you presently have visiting nurse or other home services: No Patient Tobacco Use Status: Former Tobacco user Tobacco use type: Cigarette Years Smoked: 30 service: No Physical Exam Vital Signs: BMI result Body Mass Index 41.2 Extrem Other: Right knee examination shows that the surgical incision is well healed, no erythema, full active extension and flexion to 120 degrees, her patella tracks well Assessment & Plan Assessment & Plan (1) Status post total right knee replacement: Code(s): Z96.651 - Presence of right artificial knee joint Category: Medical Plan Ms. Dean continues to do very well after undergoing right total knee replacement surgery on 10/30/2023. She will continue with her home exercise prog brittany. She does know to take antibiotics before any dental work. She will contact me prior to her follow-up appointment in 3 months should any questions or concerns arise. Feel free to call me at any time should questions regarding her orthopedic management arise. Medications: New oxycodone Partial Fill upon patient request. 5 mg PO Q24H PRN 25 tabs 0RF pain Coding Level of Care Code Global (34683) Diagnoses Status post total right knee replacement Z96.651
[2024-01-18 11:05] VITALS: BMI 41.2
--- OUTSIDE RECORDS SUMMARY | 2024-01-24 01:47 | XMS_ITS ---
Author Name [facility] Organization Unknown History of Medication Use Medication Directions Dispensed Refills Start Date End Date Status Ventolin HFA 90 mcg/actuation aerosol inhaler INHALE 2 PUFFS BY MOUTH EVERY 4 HOURS NEEDED 4 active benzonatate 100 mg capsule TAKE 1 CAPSULE BY MOUTH THREE TIMES A DAY FOR 3 DAYS 4 active doxycycline hyclate 100 mg tablet TAKE 1 TABLET BY MOUTH TWICE A DAY FOR 10 DAYS 4 active hydroxyzine pamoate 25 mg capsule TAKE 1 CAPSULE BY MOUTH 3 TIMES A DAY NEEDED 4 active amoxicillin 875 mg tablet TAKE 1 TABLET BY MOUTH TWICE A DAY FOR 7 DAYS 4 active codeine 10 mg-guaifenesin 100 mg/5 mL oral liquid TAKE 10 ML BY MOUTH EVERY 4 HOURS FOR 5 DAYS NEEDED 4 active clobetasol 0.05 % topical cream 3 completed escitalopram 20 mg tablet TAKE 1 TABLET BY MOUTH EVERY DAY 3 active Kenalog 40 mg/mL suspension for injection 3 active lidocaine (PF) 10 mg/mL (1 %) injection solution 3 active clonazepam 1 mg tablet TAKE 1 TABLET BY ORAL ROUTE 2 TIMES PER DAY (MAY TAKE THIRD DOSE FOR SEVERE ANXIETY). 3 active oxcarbazepine 600 mg tablet TAKE 1 TABLET BY MOUTH TWICE A DAY 3 active benzonatate 100 mg capsule TAKE 1 CAPSULE BY MOUTH THREE TIMES A DAY FOR 3 DAYS 4 active cephalexin 500 mg capsule TAKE 1 CAPSULE BY MOUTH FOUR TIMES A DAY 3 completed trazodone 150 mg tablet TAKE 1 TABLET BY MOUTH AT BEDTIME NEEDED FOR INSOMNIA. 3 active clotrimazole-betametha sone 1 %-0.05 % topical cream APPLY 1 APPLICATION EXTERNALLY TWICE A DAY 3 active clonazepam 0.5 mg tablet 3 completed clotrimazole 1 % topical cream APPLY 1 APPLICATION EXTERNALLY TWICE A DAY 3 completed Xeroform Petrolat Patch 2 x2 (XEROFORM) patch Apply topically See Admin Instructions. 3 active buspirone 15 mg tablet TAKE 1 TABLET BY MOUTH TWICE A DAY 3 active acetaminophen 300 mg-codeine 30 mg tablet 3 completed Restasis 0.05 % eye drops in a dropperette INSTILL DROP INTO BOTH EYES 2 TIMES A DAY. 3 active Eliquis 5 mg tablet TAKE 1 TABLET BY MOUTH TWICE A DAY FOR 30 DAYS 4 active levothyroxine 50 mcg tablet TAKE 1 TABLET BY MOUTH M,W,F AND 1/2 TAB TUE,TD,SAT,SUN. 3 completed silver sulfADIAZINE (SILVADENE) 1 % cream APPLY TOPICALLY TWICE A DAY 3 active doxycycline hyclate 100 mg capsule TAKE 1 CAPSULE BY MOUTH TWICE A DAY FOR 10 DAYS 3 completed Myrbetriq 50 mg tablet,extended release TAKE 1 TABLET BY MOUTH EVERY DAY 3 active Mounjaro 2.5 mg/0.5 mL subcutaneous pen injector 4 completed carvedilol 6.25 mg tablet TAKE 1 TABLET BY MOUTH TWICE A DAY 3 active erythromycin 5 mg/gram (0.5 %) eye ointment APPLY 1 APPLICATION INTO THE LOWER EYELID OF AFFECTED EYE 4 TIMES A DAY FOR 7 DAYS 3 completed oxycodone 5 mg tablet TAKE 1 TO 2 TABLETS BY MOUTH EVERY 4 HOURS NEEDED FOR MODERATE OR SEVERE PAIN MAX DAILY: 60 MG 3 completed albuterol sulfate HFA 90 mcg/actuation aerosol inhaler INHALE 2 PUFFS BY MOUTH EVERY 4 HOURS NEEDED 3 active doxycycline hyclate 100 mg capsule TAKE 1 CAPSULE BY MOUTH TWICE A DAY FOR 10 DAYS 3 completed furosemide 40 mg tablet TAKE 1 TABLET BY MOUTH EVERY DAY 3 completed atorvastatin 80 mg tablet TAKE 1 TABLET BY MOUTH EVERY DAY 3 active Kenalog 10 mg/mL suspension for injection 3 active No known medications No known medications 3 active Victoza 2-Jeff 0.6 mg/0.1 mL (18 mg/3 mL) subcutaneous pen injector INJECT 1.8 MG UNDER THE SKIN ONCE DAILY 3 completed trazodone 100 mg tablet TAKE 1 TABLET BY MOUTH EVERYDAY AT BEDTIME 3 completed famotidine 40 mg tablet Take 1 tablet every day by oral route. 4 active lidocaine (PF) 10 mg/mL (1 %) injection solution Take 10 mL by injection route. 4 completed carvedilol 6.25 mg tablet TAKE 1 TABLET BY MOUTH TWICE A DAY 3 active lidocaine (PF) 100 mg/5 mL (2 %) injection syringe Take 1 mL by injection route. 3 completed levothyroxine 50 mcg tablet TAKE 1 TABLET BY MOUTH M,W,F AND 1/2 TAB TUE,TD,SAT,SUN. 3 completed Kenalog 40 mg/mL suspension for injection Take 1.5 mL by injection route. 3 completed sulfamethoxazole 800 mg-trimethoprim 160 mg tablet TAKE 1 TABLET BY MOUTH TWICE A DAY FOR 5 DAYS 3 completed prednisone 20 mg tablet TAKE 2 TABLETS BY MOUTH DAILY X 3 DAYS 3 completed enoxaparin 120 mg/0.8 mL subcutaneous syringe INJECT 1 PEN EVERY 12 HOURS DIRECTED 3 completed Eliquis 5 mg tablet TAKE 1 TABLET BY MOUTH TWICE A DAY FOR 30 DAYS 4 active lidocaine HCl 10 mg/mL (1 %) injection solution Take 5 mL by injection route. 3 completed oxycodone 5 mg tablet TAKE 1 TO 2 TABLETS BY MOUTH EVERY 4 HOURS NEEDED FOR MODERATE OR SEVERE PAIN MAX DAILY: 60 MG 3 completed albuterol sulfate HFA 90 mcg/actuation aerosol inhaler INHALE 2 PUFFS BY MOUTH EVERY 4 HOURS NEEDED 3 active doxycycline hyclate 100 mg capsule TAKE 1 CAPSULE BY MOUTH TWICE A DAY FOR 10 DAYS 3 completed furosemide 40 mg tablet TAKE 1 TABLET BY MOUTH EVERY DAY 3 completed atorvastatin 80 mg tablet TAKE 1 TABLET BY MOUTH EVERY DAY 3 active Kenalog 10 mg/mL suspension for injection 3 active enoxaparin (LOVENOX) 120 MG/0.8ML injection Inject 0.8 mL (120 mg total) under the skin 2 times a day. Do not start before September 28, 2022. 3 active trazodone 150 mg tablet TAKE 1 TABLET BY MOUTH AT BEDTIME NEEDED FOR INSOMNIA. 3 active hydrocortisone 2.5 % topical cream with perineal applicator APPLY TO AFFECTED AREA RECTALLY TWICE A DAY NEEDED 3 completed atorvastatin 80 mg tablet TAKE 1 TABLET BY MOUTH EVERY DAY 3 active cephalexin 500 mg capsule TAKE 1 CAPSULE BY MOUTH FOUR TIMES A DAY 4 completed clonazepam 1 mg tablet TAKE 1 TABLET BY ORAL ROUTE 2 TIMES PER DAY (MAY TAKE THIRD DOSE FOR SEVERE ANXIETY). 3 active cephalexin (KEFLEX) 500 MG capsule Take 1 capsule (500 mg total) by mouth 4 (four) times a day. 3 active Victoza 2-Jeff 0.6 mg/0.1 mL (18 mg/3 mL) subcutaneous pen injector INJECT 1.8 MG UNDER THE SKIN ONCE DAILY 3 completed ferrous sulfate 325 mg (65 mg iron) tablet TAKE 1 TABLET BY MOUTH IN THE MORNING AND IN THE EVENING 3 completed trazodone 100 mg tablet TAKE 1 TABLET BY MOUTH EVERYDAY AT BEDTIME 3 completed omeprazole 20 mg capsule,delayed release TAKE 1 CAPSULE BY MOUTH EVERY DAY IN THE MORNING 3 active oxycodone 5 mg tablet TAKE 1 TO 2 TABLETS BY MOUTH EVERY 4 HOURS NEEDED FOR MODERATE OR SEVERE PAIN MAX DAILY: 60 MG 3 completed sulfamethoxazole 800 mg-trimethoprim 160 mg tablet TAKE 1 TABLET BY MOUTH TWICE A DAY FOR 5 DAYS 3 completed hydroxyzine HCl 25 mg tablet TAKE 1 TABLET BY MOUTH TWICE A DAY NEEDED FOR ANXIETY 3 completed methylprednisolone 4 mg tablets in a dose pack TAKE 6 TABLETS ON DAY 1 DIRECTED ON PACKAGE AND DECREASE BY 1 TAB EACH DAY FOR A TOTAL OF 6 DAYS 3 completed famotidine 20 mg tablet TAKE 1 TABLET BY MOUTH TWICE A DAY 3 completed famotidine 20 mg tablet TAKE 1 TABLET BY MOUTH TWICE A DAY 3 active codeine 10 mg-guaifenesin 100 mg/5 mL oral liquid TAKE 10 ML BY MOUTH EVERY 4 HOURS FOR 5 DAYS NEEDED 4 active silver sulfadiazine 1 % topical cream APPLY TO AFFECTED AREA TWICE A DAY 4 completed amoxicillin 875 mg-potassium clavulanate 125 mg tablet TAKE 1 TABLET BY MOUTH EVERY 12 HOURS FOR 10 DAYS 3 completed famotidine 40 mg tablet Take 1 tablet every day by oral route. 4 active Mounjaro 5 mg/0.5 mL subcutaneous pen injector INJECT 5 MG SUBCUTANEOUS INJECTION EVERY WEEK,ROTATE INJECTION SITES 4 active enoxaparin 120 mg/0.8 mL subcutaneous syringe INJECT 1 PEN EVERY 12 HOURS DIRECTED 4 completed Wixela Inhub 250 mcg-50 mcg/dose powder for inhalation INHALE 1 PUFF BY MOUTH TWICE A DAY 3 active oxyCODONE (ROXICODONE) 5 MG immediate release tablet Take 1-2 tablets (5-10 mg total) by mouth every 4 (four) hours as needed for moderate pain or severe pain. Max Daily Amount: 60 mg 3 active tacrolimus 0.1 % topical ointment APPLY TWICE A DAY TO AREAS OF DERMATITIS ON LEGS. REPEAT NEEDED 3 completed albuterol sulfate HFA 90 mcg/actuation aerosol inhaler INHALE 2 PUFFS BY MOUTH EVERY 4 HOURS NEEDED 3 active GaviLyte-G 236 gram-22.74 gram-6.74 gram-5.86 gram oral solution TAKE 4000 ML DIRECTED 4 completed erythromycin 5 mg/gram (0.5 %) eye ointment APPLY 1 APPLICATION INTO THE LOWER EYELID OF AFFECTED EYE 4 TIMES A DAY FOR 7 DAYS 3 completed Restasis 0.05 % eye drops in a dropperette INSTILL DROP INTO BOTH EYES 2 TIMES A DAY. 3 active acetaminophen 300 mg-codeine 30 mg tablet 3 completed lidocaine (PF) 100 mg/5 mL (2 %) injection syringe Take 1 mL by injection route. 3 completed carvedilol 3.125 mg tablet TAKE 1 TABLET BY MOUTH 2 TIMES A DAY WITH 6.25 MG DOSE 4 active clobetasol 0.05 % topical cream 3 completed ferrous sulfate 325 mg (65 mg iron) tablet TAKE 1 TABLET BY MOUTH IN THE MORNING AND IN THE EVENING 3 completed lidocaine (PF) 100 mg/5 mL (2 %) injection syringe 3 active azelastine 137 mcg (0.1 %) nasal spray aerosol SPRAY 1 SPRAY INTO EACH NOSTRIL TWICE A DAY FOR 30 DAYS 3 completed clotrimazole-betametha sone 1 %-0.05 % topical cream APPLY 1 APPLICATION EXTERNALLY TWICE A DAY 3 active Wixela Inhub 250 mcg-50 mcg/dose powder for inhalation INHALE 1 PUFF BY MOUTH TWICE A DAY 3 active hydrocortisone 2.5 % topical cream with perineal applicator APPLY TO AFFECTED AREA RECTALLY TWICE A DAY NEEDED 3 completed oxcarbazepine 600 mg tablet TAKE 1 TABLET BY MOUTH TWICE A DAY 3 active GaviLyte-G 236 gram-22.74 gram-6.74 gram-5.86 gram oral solution TAKE 4000 ML DIRECTED 4 completed doxycycline hyclate 100 mg tablet TAKE 1 TABLET BY MOUTH TWICE A DAY FOR 10 DAYS 4 active amoxicillin 875 mg tablet TAKE 1 TABLET BY MOUTH TWICE A DAY FOR 7 DAYS 4 active tacrolimus 0.1 % topical ointment APPLY TWICE A DAY TO AREAS OF DERMATITIS ON LEGS. REPEAT NEEDED 3 completed amoxicillin 875 mg-potassium clavulanate 125 mg tablet TAKE 1 TABLET BY MOUTH EVERY 12 HOURS FOR 10 DAYS 3 completed warfarin 2.5 mg tablet TAKE 6 TABLETS BY MOUTH EVERY DAY DIRECTED FOR 90 DAYS 3 completed acetaminophen-codeine (TYLENOL #3) 300-30 MG per tablet Take 1 tablet by mouth 4 times daily (every 6 hours) as needed for mild pain or moderate pain. Max Daily Amount: 4 tablets 3 active clonazepam 0.5 mg tablet 3 completed Mounjaro 5 mg/0.5 mL subcutaneous pen injector INJECT THE CONTENTS OF 1 PEN SUBCUTANEOUSLY EVERY WEEK. ROTATE INJECTION SITES 4 active Mounjaro 2.5 mg/0.5 mL subcutaneous pen injector 4 completed carvedilol 3.125 mg tablet TAKE 1 TABLET BY MOUTH 2 TIMES A DAY WITH 6.25 MG DOSE 4 active azelastine 137 mcg (0.1 %) nasal spray aerosol SPRAY 1 SPRAY INTO EACH NOSTRIL TWICE A DAY FOR 30 DAYS 3 completed omeprazole 20 mg capsule,delayed release TAKE 1 CAPSULE BY MOUTH EVERY DAY IN THE MORNING 3 active clotrimazole 1 % topical cream 3 completed buspirone 15 mg tablet TAKE 1 TABLET BY MOUTH TWICE A DAY 3 active prednisone 20 mg tablet TAKE 2 TABLETS BY MOUTH DAILY X 3 DAYS 3 completed warfarin 2.5 mg tablet TAKE 6 TABLETS BY MOUTH EVERY DAY DIRECTED FOR 90 DAYS 3 active Kenalog 10 mg/mL suspension for injection Take 2 mL by injection route. 3 active Kenalog 40 mg/mL suspension for injection Take 1.5 mL by injection route. 3 completed BD Ultra-Fine Short Pen Needle 31 gauge x 5/16 USE DIRECTED TO ADMINISTER VICTOZA DAILY 90 DAYS 3 active escitalopram 20 mg tablet TAKE 1 TABLET BY MOUTH EVERY DAY 3 active oxyCODONE (ROXICODONE) 5 MG immediate release tablet Take 1 tablet (5 mg total) by mouth every 4 (four) hours as needed for moderate pain or severe pain. Max Daily Amount: 30 mg 3 aborted silver sulfadiazine 1 % topical cream APPLY TO AFFECTED AREA TWICE A DAY 3 completed Myrbetriq 50 mg tablet,extended release TAKE 1 TABLET BY MOUTH EVERY DAY 4 active hydroxyzine HCl 25 mg tablet TAKE 1 TABLET BY MOUTH TWICE A DAY NEEDED FOR ANXIETY 3 completed Kenalog 10 mg/mL suspension for injection Take 2 mL by injection route. 3 completed furosemide 40 mg tablet TAKE 1 TABLET BY MOUTH EVERY DAY 3 completed Problems Problem Status Onset Date Problem Type Date of Resoluti on Source Osteoarthritis of right knee joint active 2022-06-20 ProblemAct [facility] Arthritis of first carpometacarpal joint of left hand active 2022-08-03 ProblemAct [facility] Extensor tenosynovitis of wrist active 2022-08-03 ProblemAct [facility] Instability of joint of right knee active 2022-12-29 ProblemAct [facility] Effusion of joint of right knee active 2022-12-29 ProblemAct [facility] Immunizations Vaccine Date Source Lot Number Status Covid-19 MRNA Vaccine - Pfiz er 12+ (Purple Cap) 10/27/2021 CCT completed
== END 2024-01-18 11:36 | disposition home or self-care (01) ==
PROVIDERS: PCP Internal Medicine; Visit Provider Orthopaedic Surgery
DX: Z96.651 Presence of right artificial knee joint (principal)
CPT/HCPCS: 99024

== ENCOUNTER → 2024-01-18 10:58 | Outpatient (BNVA) | payer MEDICARE, MEDICAID, SELFPAY | PROVIDERS: PCP Internal Medicine; Visit Provider Orthopaedic Surgery | DX: Z96.651 Presence of right artificial knee joint (principal) | CPT/HCPCS: 99212 ==

== ENCOUNTER 2024-01-29 09:26 | Outpatient (REF) | payer MEDICARE, MEDICAID, SELFPAY | END 2024-01-29 09:27 | disposition home or self-care (01) | LOC: HO.HOSX 09:26 | DX: Z13.89 Encounter for screening for other disorder (principal) ==

== ENCOUNTER 2024-03-08 11:12 | Outpatient (REF) | payer MEDICARE, MEDICAID, SELFPAY ==
--- NOTE | ~2024-03-08 | XR_ITS ---
EXAMINATION: XR WRIST 3 OR MORE VIEWS LEFT HISTORY: M25.532 - Pain in left wrist COMPARISON: There are no prior studies available for comparison. FINDINGS: Three views of the left wrist are submitted. Osseous mineralization is normal. There is no fracture or dislocation. The joint spaces are preserved. The soft tissues are unremarkable. XR/XR wrist LT min 3V IMPRESSION: Unremarkable examination of the left wrist. Electronically signed by: Hudson Rico MD 03/08/2024 03:57 PM DENNIS
== END 2024-03-08 11:13 | disposition home or self-care (01) ==
LOC: HO.HOSX 11:12
PROVIDERS: PCP Internal Medicine
DX: M25.532 Pain in left wrist (principal)
CPT/HCPCS: 73110; 99212

== ENCOUNTER → 2024-05-16 14:37 | Outpatient (BNVA) | payer MEDICARE, MEDICAID, SELFPAY | PROVIDERS: PCP Internal Medicine; Visit Provider Surgery ==

== ENCOUNTER 2024-05-24 09:45 | Outpatient (AMB) | payer MEDICARE, MEDICAID, SELFPAY ==
--- NOTE | 2024-05-24 10:19 | A.OFFVIS_ITS ---
Vital Signs 05/24/24 10:20 Height 5 ft 4 in Weight 237 lb BMI 40.7 Intake Visit Reasons: OV- Left wrist pain Intake Note: Esperanza is a 63 year old left hand dominant female who presents today for a follow up of her ECU tendinitis of left wrist. At her last visit on 03/08/24 patient was referred to occupational therapy for ROM and strengthening of the left hand. Patient reports she has not been reached about appointment although there is documentation OT tried calling her 2 times without success. Patient complains of pain on the dorsal aspect of the left wrist radiating up the ulnar aspect of the left forearm and down to the small finger MCP jopint. Patient reports taking Tylenol without relief. She continues to wear wrist brace daily, taking it off to shower and cook. Allergies No Known Allergies Allergy (Verified 05/24/24 10:20) HPI HPI OV- Left wrist pain: Details: Esperanza is a 63 year old left hand dominant female who presents today for a follow up of her ECU tendinitis of left wrist. At her last visit on 03/08/24 patient wa s referred to occupational therapy for ROM and strengthening of the left hand. Patient reports she has not been reached about appointment although there is documentation OT tried calling her 2 times without success. Patient complains of pain on the dorsal aspect of the left wrist radiating up the ulnar aspect of the left forearm and down to the small finger MCP jopint. Patient reports taking Tylenol without relief. She continues to wear wrist brace daily, taking it off to shower and cook. [facility] Medical History Arthritis of right knee Fatty liver Asthma Hypothyroid DVT (deep venous thrombosis) Fibromyalgia HTN (hypertension) Chronic renal insufficiency Type 2 diabetes mellitus Bipolar disorder Depression Morbid obesity Chronic pulmonary embolism Sleep apnea GERD (gastroesophageal reflux disease) Elevated cholesterol Surgical History History of esophagogastroduodenoscopy (EGD) H/O colonoscopy Hx of inguinal hernia repair Hx of sinus surgery Hx of shoulder surgery Hx of umbilical hernia repair Hx of arthroscopy of right knee History of bladder suspension procedure Hx of tonsillectomy H/O: hysterectomy History of ankle surgery Family History (Updated 05/16/24 @ 14:59 by LARISSA Dickson) Father Heart failure Diabetes HTN (hypertension) Maternal Aunt Diabetes Paternal Grandmother Diabetes Mother HTN (hypertension) Social History Household Members: Family Household Members Other:: takes care of parents Housing: House Are you a primary healthcare administration intern to a significant other at home: No Do you presently have visiting nurse or other home services: No Patient Tobacco Use Status: Former Tobacco user Tobacco use type: Cigarette Years Smoked: 30 service: No Review of Systems Const All systems reviewed & are unremarkable except as noted in HPI and below Physical Exam Vital Signs: BMI result Body Mass Index 40.7 Extrem Other: Patient is alert, oriented, and in no acute distress. Neuro: Normal sensation of the tips of all digits of the left hand at this time Vascular: Cap refill brisk Pain: Mild tenderness to palpation of the left ulnar styloid moving up into the palm and down into the arm ROM: Patient is able to flex and extend all digits of the left hand fully and without difficulty Pronation and supination of the left wrist full and intact, but patient reports some discomfort at the extremes of this range of motion Skin: No lacerations or abrasions. General: No ecchymosis, erythema, or evidence of infection. Psych: Appears grossly normal Affect normal Attitude cooperative Assessment & Plan Assessment & Plan (1) Extensor carpi ulnaris tendinitis: Code(s): M77.8 - Other enthesopathies, not elsewhere classified Category: Medical Plan 1. ECU tendinitis of left wrist Patient is educated about this condition Patient is educated about the typical treatment course At this time, patient was once again referred to occupational therapy for range of motion and strengthening of the left wrist in the setting Of the ECU tendinitis Patient is also educated that she should wear the Velcro wrist splint to provided her in the office today when her wrist is particularly painful Patient is amenable to this plan Patient will follow-up as needed with any acute concerns Coding Level of Care Code Est Pt Level 3 (89468) Diagnoses Extensor carpi ulnaris tendinitis M77.8
--- OUTSIDE RECORDS SUMMARY | 2024-05-24 10:19 | XMS_ITS | Encounter Summary ---
Author Organization [facility] Address [address] [place] [address] Care Team Providers Care Glass Cut Off Supervisor Name Role Phone Janak Greer MD Primary Care Provider [phone] Encounter Details Date Type Department Care Team (Late st Contact Info) Description 06/06/2023 Scanned Document [address] [phone] Provider, Generic Social History Tobacco Use Types Packs/Day Years Used Date Smoking Tobacco: Never Smokeless Tobacco: Never Sex and Gender Information Value Date Recorded Sex Assigned at Female 10/12/2022 6:28 PM EDT Gender Identity Female 08/08/2022 9:13 PM EDT Sexual Orientation Heterosexual (straight) 08/08 9:13 PM EDT documented as of this encounter Plan of Treatment Not on file documented as of this encounter Visit Diagnoses Not on filedocumented in this encounter Care Teams Glass Cut Off Supervisor Relationship Specialty Start Date End Date Janak Greer MD [address] [place] [address] PCP - General Internal Medicine 08/09/22 documented as of this encounter
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
[2024-05-24 10:20] VITALS: BMI 40.7
--- OUTSIDE RECORDS SUMMARY | 2024-05-24 10:20 | XMS_ITS | Encounter Summary ---
Author Organization [facility] Address [address] [place] [address] Care Team Providers Care Business Intelligence Architect Name Role Phone Janak Greer MD Primary Care Provider [phone] Encounter Details Date Type Department Care Team (Late st Contact Info) Description 09/28/2022 Telephone [facility] [address] [phone] Rommel Whyte MD [address] [place] [phone] Social History Tobacco Use Types Packs/Day Years [...] on filedocumented in this encounter Care Teams Business Intelligence Architect Relationship Specialty Start Date End Date Janak Greer MD [address] [place] [address] PCP - General Internal Medicine 08/09/22 documented as of this encounter
--- OUTSIDE RECORDS SUMMARY | 2024-05-24 10:20 | XMS_ITS | Encounter Summary ---
Author Organization [facility] Address [address] [address] Phone Care Team Providers Care Curtain Inspector Name Role Phone Janak Greer MD Primary Care Provider [phone] Encounter Details Date Type Department Care Team (Late Contact Info) Description 04/01/2021 Documentation Only [facility] [address] [place] [address] Kelechi Moran MD [address] [place] [address] [place] [address] Social History Tobacco Use Types Packs/Day Years Used Date Smoking Tobacco: Former Cigarettes Q uit: 04/18/2018 Alcohol Use Standard Drinks/Week Comments No 0 (1 standard drink = 0.6 oz pur e alcohol) Comments Unknown Sex and Gender Information Value Date Recorded Sex Assigned at Not on file Legal Sex Female 4:32 PM EST Gender Identity Not on file Sexual Orientation Not on file documented as of this encounter Plan of Treatment Upcoming Encounters Date Type Department Care Team (Late st Contact Info) Description 09/02/2024 1:30 PM EDT Office Visit [facility] [address] [place] [address] Kelechi Moran MD [address] [place] [address] [place] [address] documented as of this encounter Visit Diagnoses Not on filedocumented in this encounter Care Teams Curtain Inspector Relationship Specialty Start Date End Date Janak Greer MD [address] PCP - General 12/18/18 documented as of this encounter
--- OUTSIDE RECORDS SUMMARY | 2024-05-24 10:20 | XMS_ITS | Encounter Summary ---
Author Organization [facility] Address [address] [place] [address] Care Team Providers Care Quality Control Name Role Phone Janak Greer MD Primary Care Provider [phone] Reason for Visit * Reason Comments Med Change Request Encounter Details Date Type Department Care Team ([facility] st Contact Info) Description 10/04/2022 Refill [facility] [address] [phone] Leslie Howell PA-C [address] [place] [phone] Visit for wound check Social History Tobacco Use Types Packs/Day Years Used Date Smoking Tobacco: Never Smokeless Tobacco: Never Sex and Gender Information Value Date Recorded Sex Assigned at Female 10/12/2022 6:28 PM EDT Gender Identity Female 08/08/2022 9:13 PM EDT Sexual Orientation Heterosexual (straight) 08/08 9:13 PM EDT documented as of this encounter Plan of Treatment Not on file documented as of this encounter Visit Diagnoses Diagnosis Visit for wound check documented in this encounter Care Teams Quality Control Relationship Specialty Start Date End Date Janak Greer MD [address] [place] [address] PCP - General Internal Medicine 08/09/22 documented as of this encounter
--- OUTSIDE RECORDS SUMMARY | 2024-05-24 10:20 | XMS_ITS | Encounter Summary ---
Author Organization [facility] Address [address] [place] [address] Care Team Providers Care Fire Technician Name Role Phone Janak Greer MD Primary Care Provider [phone] Encounter Details Date Type Department Care Team (Late st Contact Info) Description 09/27/2022 Scanned Document [facility] [address] [phone] Rommel Whyte MD [address] [place] [phone] Social History Tobacco Use Types Packs/Day Years [...] on filedocumented in this encounter Care Teams Fire Technician Relationship Specialty Start Date End Date Janak Greer MD [address] [place] [address] PCP - General Internal Medicine 08/09/22 documented as of this encounter
--- OUTSIDE RECORDS SUMMARY | 2024-05-24 10:20 | XMS_ITS | Encounter Summary ---
Author Organization [facility] Address [address] [address] Phone Care Team Providers Care Limnology Teacher Name Role Phone Janak Greer MD Primary Care Provider [phone] Encounter Details Date Type Department Care Team (Late Contact Info) Description 05/20/2021 Documentation Only [facility] [address] [place] [address] Kelechi Moran MD [address] [place] [address] [place] [address] Social History Tobacco Use Types [...] Visit [facility] [address] [place] [address] Kelechi Moran MD [address] [place] [address] [place] [address] documented as of this encounter Visit Diagnoses Not on filedocumented in this encounter Care Teams Limnology Teacher Relationship Specialty Start Date End Date Janak Greer MD [address] PCP - General 12/18/18 documented as of this encounter
--- OUTSIDE RECORDS SUMMARY | 2024-05-24 10:20 | XMS_ITS | Patient Health Record ---
Author Organization [facility] Address [address] [place] [address] Care Team Providers Care Pile Driver Operator Barge Mounted Name Role Phone Caprice Staples Unavailable [phone] Reason For Referral No Information Medications Medication SIG (Take, Route, Frequency, Duration) Notes Start Date End Date Status Topiramate 50MG 1 ORAL twice daily for [facility] 04/11/19 14 Active metFORMIN HCl 500MG 1 ORAL four times da negro for [facility] 04/11/2013 Active Luz 0.05MG 1 patch to skin Transdermal TWICE WEEKLY [facility] 04/04/2013 Active Vitamin D3 5,000 IU 1 ORAL daily for [facility] 04/11/2013 Active PriLOSEC OTC 20 MG 1 tablet Orally Once a day Active Atorvastatin Calcium 80 MG 1 tablet Oral ly Once a day Active Aspirin EC 81MG 1 ORAL daily for [facility] 04/11/2013 Active Abilify 2MG 1 ORAL daily for [facility] 04/11/2013 Active Restasis 0.05 % 1 into affected eye Ophthalmic Twice a day Active Luz 0.05 MG/24HR 1 patch to skin Transdermal TWICE WEEKLY for 90 days 07/22/2014 Active LORazepam 1MG 1 ORAL three times d aily for [facility] 04/11/2013 Active glipiZIDE 5MG ORAL three times greg ly for [facility] 04/11/2013 Active Cymbalta 60MG 1 ORAL daily for [facility] 04/11/2013 Active Problems Problem Type SNOMED Code ICD Code Onset Dates Problem Status W/U Status Risk Notes Problem Type II diabetes mellitus uncontrolled (075417574) Diabetes mellitus without mention of complication, type II or unspecified type, uncontrolled (250.02) Active confirmed Diag Problem Hyperlipidemia (57565712) Other and unspecified hyperlipidemia (272.4) Active confirmed Major Problem Menopausal symptom (77175172) Symptomatic menopausal or female climacteric states (627.2) Active confirmed Diag Problem Muscle pain (21795976) Unspecified myalgia and myositis (729.1) Active confirmed Major Problem Gynecological examination normal (111468111331169) Routine gynecological examination (V72.31) Active confirmed Major Plan Of Treatment Pending Test Test Name Order Date MAMMOGRAM, SCREENING 07/22/2014 Insurance Providers Payer Name Payer Address Payer Phone Subscriber Number Group Number Insured Name Patient Relationship to Insured Coverage Start Date Coverage End Date [employer] [facility] [address] [place] [address] [id number] CHEVY WOLF Self - patient is the insured Medical (General) History Medical History History ICD Code Diabetes mellitus without me ntion of complication, type II or unspecified type, uncontrolled 250.02 Symptomatic menopausal or female climact yadira states 627.2 Unspecified myalgia and myositis 729.1 Other and unspecified hyperlipidemia 272 .4 Surgical History Surgery Date(Month/Year) BILATERAL TUBAL LIGATION TONSILLECTOMY WISDOM TEETH BLADDER SUSPENSION SUBTOTAL HYST/BSO BREAST CYST Hospitalization History Reason Date(Month/Year) CHILD SEE SURGICAL HX
--- OUTSIDE RECORDS SUMMARY | 2024-05-24 10:20 | XMS_ITS | Clinical Summary ---
Author Organization [facility] Address [address] [place] [address] Care Team Providers Care Plastic Surgery Technician Name Role Phone Janak Greer MD Primary Care Provider [phone] Allergies No known active allergies Medications Medication Sig Dispensed Refills Start Date End Date Status albuterol 108 (90 Base) MCG/ACT inhaler 0 01/06/2021 Active atorvastatin (LIPITOR) tablet 80 mg atorvastatin 80 mg tablet 0 02/13/2012 Active aspirin 81 MG EC tablet Take 1 tablet by mouth. 0 Active Blood Glucose Monitoring Suppl (FreeStyle Lite) PABLO USE TO TEST BLOOD SUGAR EVERY DAY 0 01/14/2019 Active carvedilol (COREG) 6.25 MG tablet Take 1 tablet by mouth 2 (two) times a day. 0 05/24/2021 Active cariprazine HCl (VRAYLAR) 1.5 MG capsule Take 1.5 mg by mouth. 0 Act kay cetirizine (ZyrTEC) 10 MG tablet Take 1 tablet by mouth. 0 Active clobetasol (TEMOVATE) 0.05 % cream PLEASE SEE ATTACHED FOR DETAILED DIRECTIONS 0 05/07/2021 Active clonazePAM (KlonoPIN) 1 MG tablet clonazepam 1 mg tablet 0 01/19/2019 Ac tive clonazePAM (KlonoPIN) 0.5 MG tablet Take 0.5 mg by mouth. 0 05/13/2019 Act kay Continuous Blood Gluc Coal Inspector (FreeStyle Joseph 14 Day Devon) PABLO 0 01/29/2019 Active Continuous Blood Gluc Sensor (FreeStyle Joseph 14 Day Sensor) MISC USE EVERY 14 DAYS 0 04/05/2019 Active cycloSPORINE (RESTASIS) 0.05 % ophthalmic emulsion 0 Active dicyclomine (BENTYL) 20 MG tablet 0 12/09/2020 Active doxycycline (VIBRAMYCIN) 100 MG capsule Take 100 mg by mouth. 0 03/17/2021 Act kay enoxaparin (LOVENOX) 150 MG/ML injection INJECT 129MG SUBCUTANEOUSLY EVERY 12 HOURS FOR 10 DAYS 0 05/05/2021 Active escitalopram (LEXAPRO) 20 MG tablet escitalopram 20 mg tablet 0 06/19/2019 Active famotidine (PEPCID) 20 MG tablet famotidine 20 mg tablet 0 10/06/2019 Active furosemide (LASIX) 40 MG tablet Take 40 mg by mouth. 0 03/22/2020 Ac tive gabapentin (NEURONTIN) 300 MG capsule 0 03/04/2021 Active glipiZIDE (GLUCOTROL) tablet 5 mg Take 5 mg by mouth daily. 0 Active glucose blood test strip 0 Active Influenza Vac Subunit Quad (Flucelvax Quadrivalent) 0.5 ML ROSE MARIE Flucelvax Quad [id number] (PF) 60 mcg (15 mcg x 4)/0.5 mL IM syringe 0 Active insulin glargine (LANTUS) injection 100 units/mL Lantus U-100 Insulin 100 unit/mL subcutaneous solution 0 04/11/2019 Active hydrocortisone 2.5 % cream 0 11/25/2020 Active insulin lispro (HumaLOG) injection 100 units/mL Humalog U-100 Insulin 100 unit/mL subcutaneous solution 0 01/23/2019 Active Insulin Syringe-Needle U-100 (BD Veo Insulin Syringe U/F) 31G X 15/64 0.3 ML MISC INJECT 5 TIMES DAILY 0 03/19/2019 Act kay Lancets (freestyle) lancets USE TO TEST BLOOD SUGAR 3 TIMES A DAY 0 01/14/2019 Active levothyroxine (SYNTHROID) tablet 25 mcg levothyroxine 25 mcg tablet 0 04/11/2019 Active levothyroxine (SYNTHROID) tablet 50 mcg 0 06/07/2021 Active lisinopril (PRINIVIL,ZESTRIL) tablet 5 mg lisinopril 5 mg tablet 0 A ctive mupirocin (BACTROBAN) 2 % ointment APPLY TOPICALLY TO THE AFFECTED AREA ON THE LEFT LOWER LEG TWICE A DAY UNTIL HEALED 0 03/17/2021 Active omeprazole (PriLOSEC) 20 MG capsule 0 01/29/2021 Active OXcarbazepine (TRILEPTAL) 300 MG tablet oxcarbazepine 300 mg tablet 0 04/16/2019 Active OXcarbazepine (TRILEPTAL) 600 MG tablet Take 600 mg by mouth 2 (two) times a day. 0 04/08/2021 Active SITagliptin (JANUVIA) 100 MG tablet Take 100 mg by mouth. 0 Act kay traZODone (DESYREL) 50 MG tablet trazodone 50 mg tablet 0 11/09/2020 Ac tive traZODone (DESYREL) 100 MG tablet Take 100 mg by mouth every night at bedtime. 0 04/06/2021 Active triamcinolone (KENALOG) 0.1 % cream PLEASE SEE ATTACHED FOR DETAILED DIRECTIONS 0 03/17/2021 Active warfarin (COUMADIN) 5 MG tablet warfarin 5 mg tablet 0 Acti ve warfarin (COUMADIN) 2.5 MG tablet TAKE 6 TABLETS BY MOUTH EVERY DAY ASDIRECTED 90 DAYS 0 03/23/2021 Active warfarin (COUMADIN) 10 MG tablet See Instructions, please take 15 mg and 20mg on alternate days, 0 Refills, Maintenance, 10/06/19 12:06:00 EDT, Tablet 0 10/06/2019 Active Multiple Vitamins-Minerals (CENTRUM ADULTS PO) Centrum 0 Active CINNAMON PO Cinnamon 0 Active Lancets (freestyle) lancets freestyle mis lancets 0 Act kay Insulin Syringe-Needle U-100 30G X 5/16 0.5 ML MISC freestyle mis lite 0 Activ e glucose blood (FREESTYLE LITE) test strip freestyle ambreen lite 0 Active Continuous Blood Gluc Coal Inspector (FreeStyle Joseph 14 Day Devon) PABLO FreeStyle Joseph 14 Day Devon 0 Active Lancets (freestyle) lancets FreeStyle Joseph 14 Day Sensor kit 0 Active OMEPRAZOLE PO Take 20 mg by mouth. 0 10/07/2020 A ctive Multiple Vitamins-Minerals (Vitamin D3 Complete) TABS Vitamin D3 0 Active hydrOXYzine (ATARAX) 25 MG tablet TAKE 1 TABLET BY ORAL ROUTE 2 TIMES PER DAY NEEDED ANXIETY. 0 07/01/2021 Active tacrolimus (PROTOPIC) 0.1 % ointment APPLY TWICE A DAY TO AREAS OF DERMATITIS ON LEGS. REPEAT NEEDED 0 07/21/2021 Activ e ferrous sulfate 325 (65 FE) MG tablet TAKE 1 TABLET BY MOUTH IN THE MORNING AND 1 TABLET IN THE EVENING. 0 11/06/2021 Activ e Victoza 18 MG/3ML injection INJECT 1.8 MG SUBCUTANEOUSLY ONCE DAILY 0 01/05/2022 Active Active Problems Problem Noted Date Diagnosed Date ECU tenosynovitis left wrist 08/18/2021 Family History Medical History Relation Name Comments Hypertension Brother Heart disease Father Hyperlipidemia Father Hypertension Father Arthritis Mother Cancer Mother Hyperlipidemia Mother Hypertension Mother Hyperlipidemia Sister Hypertension Sister Relation Name Status Comments Brother Father Mother Sister Social History Tobacco Use Types Packs/Day Years Used Date Smoking Tobacco: Former Smokeless Tobacco: Never Tobacco Cessation:Counseling Given: Not Answered Alcohol Use Standard Drinks/Week Comments Not Currently 0 (1 standard drink = 0.6 oz pur e alcohol) Sex and Gender Information Value Date Recorded Sex Assigned at Not on file Gender Identity Not on file Sexual Orientation Not on file Job Start Date Occupation Industry Not on file Not on file Not on file Last Filed Vital Signs Vital Sign Reading Time Taken Comments Blood Pressure - - Pulse - - Temperature - - Respiratory Rate - - Oxygen Saturation - - Inhaled Oxygen Concentration - - Weight 130.6 kg (288 lb) 08/18/2021 10:57 AM EDT Height 162.6 cm (5' 4 ) 08/18/2021 10:57 AM EDT Body Mass Index 49.44 08/18/2021 10:57 AM EDT Plan of Treatment Health Maintenance Due Date Last Done Comments Hepatitis C Screening 1961 COVID-19 Vaccine (#1) 1966 Pneumococcal Vaccine (1 of 2 - PCV) 11/16/1967 Depression Screening 1973 BMI Counseling 11/16/1979 Preventative Health Evaluation 11/16/1979 DTap / Tdap / Td (1 - Tdap) 1980 Shingrix-Zoster Vaccine (1 o f 2) 1980 Cervical Cancer Screening (Pap Smear) 1982 Colon Cancer Screening (Colonoscopy) 2006 Breast Cancer Screening (Mammogram) 11/16/2011 RSV Adult > 60+ Yrs or (1 - Risk 60-74 years 1-dose series) 2021 Influenza Vaccine (#1) 2023 0, 10/17/2018 Hepatitis B Vaccines Aged Out No long er eligible based on patient's age to complete this topic RSV Ped < 20 months Aged Out No longe r eligible based on patient's age to complete this topic Care Teams Plastic Surgery Technician Relationship Specialty Start Date End Date Janak Greer MD [address] [place] [address] PCP - General Internal Medicine 12/27/18
--- OUTSIDE RECORDS SUMMARY | 2024-05-24 10:20 | XMS_ITS | Encounter Summary ---
Author Organization [facility] Address [address] [address] Phone Care Team Providers Care Mortar Mixer Operator Name Role Phone Janak Greer MD Primary Care Provider [phone] Reason for Visit * Reason Comments New Med Request Encounter Details Date Type Department Care Team (Late Contact Info) Description 04/12/2022 Refill [facility] [address] [place] [address] Kelechi Moran MD [address] [place] [address] [place] [address] Social History Tobacco Use Types [...] Visit [facility] [address] [place] [address] Kelechi Moran MD [address] [place] [address] [place] [address] documented as of this encounter Visit Diagnoses Not on filedocumented in this encounter Care Teams Mortar Mixer Operator Relationship Specialty Start Date End Date Janak Greer MD [address] PCP - General 12/18/18 documented as of this encounter
--- OUTSIDE RECORDS SUMMARY | 2024-05-24 10:20 | XMS_ITS | Encounter Summary ---
Author Organization [facility] Address [address] [address] Phone Care Team Providers Care Cardroom Plastic Card Grader Name Role Phone Janak Greer MD Primary Care Provider [phone] Encounter Details Date Type Department Care Team (Late Contact Info) Description 05/27/2021 Documentation Only [facility] [address] [place] [address] Kelechi Moran MD [address] [place] [address] [place] [address] Social History Tobacco Use Types [...] Visit [facility] [address] [place] [address] Kelechi Moran MD [address] [place] [address] [place] [address] documented as of this encounter Visit Diagnoses Not on filedocumented in this encounter Care Teams Cardroom Plastic Card Grader Relationship Specialty Start Date End Date Janak Greer MD [address] PCP - General 12/18/18 documented as of this encounter
--- OUTSIDE RECORDS SUMMARY | 2024-05-24 10:20 | XMS_ITS | Encounter Summary ---
Author Organization [facility] Address [address] [address] Phone Care Team Providers Care Computer Customer Support Specialist Name Role Phone Janak Greer MD Primary Care Provider [phone] Encounter Details Date Type Department Care Team (Late Contact Info) Description 05/17/2021 Documentation Only [facility] [address] [place] [address] Kelechi Moran MD [address] [place] [address] [place] [address] Social History Tobacco Use Types [...] Visit [facility] [address] [place] [address] Kelechi Moran MD [address] [place] [address] [place] [address] documented as of this encounter Visit Diagnoses Not on filedocumented in this encounter Care Teams Computer Customer Support Specialist Relationship Specialty Start Date End Date Janak Greer MD [address] PCP - General 12/18/18 documented as of this encounter
--- OUTSIDE RECORDS SUMMARY | 2024-05-24 10:20 | XMS_ITS | Data Portability ---
Author Organization [place] - [facility], Allergy Address [address] [address] Care Team Providers Care Medicinal Chemist Name Role Phone LELAANUSHA Primary Care Provider Assessment Encounter Date Assessment Date Assessment LastModified by Organization Details LastModified Time 07/24/2023 07/24/2023 Patient seen in follow-up for chronic sinusitis. She notes history of positional vertigo and bilateral ear pressure. She feels symptoms are now worse on the right than the left. She notes sinus congestion on both sides. No change with nasal steroids, oral steroids or multiple antibiotics. Nasal endoscopy shows marked septal deviation to the right side but no polyps or colored discharge on the left. Imaging recommended to determine if things have worsened since her CT scan. [email or web address] Not available 07/24/2023 12:39:59 08/10/2023 08/10/2023 The patient is doing well following functional endoscopic sinus surgery. Pathology consistent with sinonasal papilloma, inverted pattern. Instruction for saline sinus irrigation 2-3 times daily with intermittent use of saline nasal spray were given. The patient will follow up in 1-2 weeks as scheduled for reevaluation. [email or web address] Not available 08/10/2023 16:45:14 09/28/2023 09/28/2023 Patient with chronic sinusitis status post left-sided surgery. She has a known rightward septal deviation and had mild sinus thickening on that side. We elected to proceed with left-sided surgery only. She notes significant improvement and just a little bit of congestion in the morning. Examination shows septal deviation to the right side without evidence of polyps. Nasal endoscopy shows postsurgical changes on the left side with a widely patent ethmoid and maxillary sinus cavity. I have suggested she reduce her irrigations to 3 times per week and resume Flonase. [email or web address] Not available 09/28/2023 12:06:34 01/08/2024 01/08/2024 63 year old female presents following left maxillary FESS on 08/08/[address] Montano. She contracted Covid-19 eight weeks ago. She reports left maxillary pain and referred left otalgia for four weeks. She endorses purulent left nasal drainage and anosmia for 2 days. Nasal endoscopy demonstrates purulent drainage from left maxillary sinus cavity. Recommend Doxycycline twice daily for 10 days, daily saline irrigations, and continuing daily Flonase. She will return for revaluation of the sinuses in 2-3 weeks to assess for infection resolution. Patient agrees with plan. ann Not available 01/08/2024 12:43:55 Plan of Treatment Reminders Order Date Submit Date Provider Last Modified By Organization Details Last Modified Time Details Appointments None recorded. Lab None recorded. Referral None recorded. Procedures None recorded. Surgeries endoscopy, nasal/sinu s, w/ maxillary antrostomy & tissue removal (SURG) 2023 024 [email or web address] Not available 4 13:06:22 endoscopy, nasal/sinu s w/ partial ethmoidect nazanin (SURG) 2023 024 [email or web address] Not available 4 13:06:23 resection of sigifredo bullosa (SURG) 2023 024 [email or web address] Not available 4 13:06:[address], sinuses, w/o contrast 2023 A[facility]EM [facility], [address] [place], [address], 4 14:09:46 Medication Orders doxycyclin e hyclate 100 mg capsule [id number] [phone] [place], [address], 4 11:38:28 fluticason e propionate 50 mcg/actuat ion nasal spray,susp ension 2023 024 [facility]/Pharmacy #[id number], [phone] [place], [address], 4 12:08:06 Patient TargetsNo targets recorded. Patient Instructions Encounter Date Encounter Id Patient Instructions Last Modified By Organization Details Last Modified Time 07/24/2023 [id number] educational handout [email or web address] Not available 07/24/2023 12:43:51 Reason for Referral None Reported. Results Created Date Observation Date Name Description Value Unit Range Abnormal Flag Note LastModifiedBy Organization Detail LastModifiedTime 07/24/[address], sinus es, w/o contr ast No observ ation record ed. [email or web address] [facility] [address], [address], 07/24/2023 12:41:01 07/26/19 24 audio gram No observ ation record ed. BARCODE Not Available 2023 12:46:02 08/08/19 24 07/24/2023 CT, sinus es, w/o contr ast No observ ation record ed. [facility] [address], [address], 08/08/2023 22:58:50 Result Notes None recorded. Problems Name Problem SNOMED Code Status Onset Date Resolution Date Notes Provider Name and Address Organization Details Recorded Time Benign paroxysma l positiona l vertigo 343552775 Active 2020 Benign paroxysma l vertigo, unspecifi ed ear; Note: Date Diagnosed : 04/14/2020 10:02 AM (H81.10) Not Available [facility] 4 02:26:19 Otorrhagi a of right ear [id number] 88535 Active 2022 Otorrhagi a, right ear; Note: Date Diagnosed : 06/14/2022 2:51 PM (H92.21) Not Available [facility] 4 02:26:40 Disturban ce of salivary secretion 96834000 Active 2021 Xerostomi a; Note: Date Diagnosed : 09/30/2021 11:57 AM (K11.7) Not Available [facility] 4 02:26:26 Bilateral temporoma ndibular joint pain [id number] 930659 Active 2022 Arthralgi a of bilateral temporoma ndibular joint; Note: Date Diagnosed : 05/10/2022 2:35 PM (M26.623) Arthral justin of bilateral temporoma ndibular joint; Note: Date Diagnosed : 04/14/2020 10:02 AM (M26.623) ; Start Date : Not Available [facility] 4 02:26:33 Gastroeso phageal reflux disease without esophagit is 554550696 Active 2021 Gastro-es ophageal reflux disease without esophagit is; Note: Date Diagnosed : 04/15/2021 10:11 AM (K21.9) Not Available [facility] 4 02:26:18 Sensorine ural hearing loss of bilateral ears 039089030 Active 2020 Sensorine ural hearing loss, bilateral ; Note: Date Diagnosed : 04/14/2020 10:03 AM (H90.3) Not Available [facility] 4 02:26:31 Allergic rhinitis caused by pollen 57260711 Active 2021 Allergic rhinitis due to pollen; Note: Date Diagnosed : 09/30/2021 11:57 AM (J30.1) Not Available [facility] 4 02:26:46 Bleeding from nose 554066207 Active 2022 Epistaxis ; Note: Date Diagnosed : 05/10/2022 2:35 PM (R04.0) Not Available [facility] 4 02:26:44 Chronic sinusitis 42325516 Active 2023 ELENITA KANG MD [address] [place] [address], [place], [address] , [facility] - [facility] 4 21:08:07 Deviated nasal septum 936737759 Active 2023 ELENITA KANG MD [address] [facility] [place],[address], [place], [address] , [place] - [facility] 4 21:08:13 Abnormal auditory perceptio n 24181422 Active 2023 ELENITA KANG MD [address] [facility] [place] [address], [place], [address] , [place] [facility] 4 12:02:38 Chronic left maxillary sinusitis 88935218952 658906 Active 2023 ELENITA KANG MD [address] [facility],[place] [address], [place], [address] , [place] [facility] 4 14:04:57 Obstructi ve sleep apnea syndrome 70885962 Active 2023 ELENITA KANG MD [address] [facility],[place] [address], [place], [address] , [place] [facility] 4 14:22:09 Chronic maxillary sinusitis 61472722 Active 2023 Chronic maxillary sinusitis ; Note: Date Diagnosed : 06/12/2023 11:15 AM (J32.0) Not Available [facility] 4 02:26:21 Acute maxillary sinusitis 01661715 Active 2023 Acute maxillary sinusitis , unspecifi ed; Note: Date Diagnosed : 04/25/2023 11:27 AM (J01.00) Not Available [facility] 4 02:26:24 Problem Notes None recorded. Procedures Surgical History Date Name Laterality Status Provider Name and Address Organization Details Recorded Time 01/08/20 24 NasalEndoscopy_DP completed MARVIN CHEUNG PA-C [address] [facility],[place] [address], [place], [address], [facility] 01/08/2024 12:45:15 09/28/19 24 JMSNasal/Sinus Endoscopy-PRIOR surgical cavities completed ELENITA MONTANO MD [address] [facility] [place] [address], [place], [address], [place] - [facility] [place] 09/28/2023 12:07:20 08/25/19 24 JMSNasal/Sinus Endoscopy-DEBRIDE MENT completed ELENITA MONTANO MD [address], [address], [facility] - [facility] [place] 08/25/2023 14:20:40 08/10/19 24 JMSNasal/Sinus Endoscopy-DEBRIDE MENT completed RAMYA BHATTI PA-C [address], [address], [facility] - [facility] [place] 08/10/2023 16:43:40 08/08/19 24 ENDOSCOPY, NASAL/SINUS W/ PARTIAL ETHMOIDECTOMY (SURG) completed Nacho Aldana [place] - [facility] 08/11/2023 13:52:45 07/24/19 24 JMSNasal/Sinus Endoscopy completed ELENITA MONTANO MD [address] [place] [address], [address], [facility] - [facility] 07/24/2023 12:01:33 07/24/19 24 SRT & Tymps ([id number] & [id number]) completed Leah Donaldson [place] - [facility] 07/24/2023 12:28:03 Imaging Results Imaging Date Name Status LastModified by Organiz ation Details LastModified Time 07/24/2023 CT, sinuses, w/o contrast completed [facility] [address], [address], 07/24/2023 12:41:01 07/26/2023 audiogram completed BARCODE Information no t available 07/26/2023 12:46:02 07/24/2023 CT, sinuses, w/o contrast completed [facility] [address], [address], 08/08/2023 22:58:50 Procedure Notes None recorded. Medical Equipment None Reported. Medications Name Sig Start Date Stop Date Status Note LastModified by Organization Details LastModified Time freestyle lite blood glucose monito ring system w/device kit active Not Available Not Available Not Available freestyle lite test strips strp active Not Available Not Available Not Available freestyle lancets misc active Not Available Not Available Not Available celecoxib 200 mg capsule active Not Available Not Available Not Available amoxicill in 500 mg capsule TAKE 4 CAPSULES BY MOUTH 1 HOUR PRIOR TO DENTAL PROPHYLA XIS FOR 1 DAY active Not Available Not Available No t Available furosemid e 40 mg tablet 09/30 completed Medicati on ID: [id number] B rand Name: furosemi de Send Method: E-Prescr ibed Sub s Allowed: subs OK Medic ationGen ericName : furosemi de Not Available Not Available Not Available Miralax 17 gram/dose oral powder 09/30 completed Medicati on ID: [id number] B rand Name: Miralax Send Method: E-Prescr ibed Sub s Allowed: subs OK Medic ationGen ericName : Miralax Not Available Not Available Not Available silver sulfadiaz ine 1 % topical cream APPLY TO AFFECTED AREA TWICE A DAY active Not Available Not Available No t Available atorvasta tin 80 mg tablet TAKE 1 TABLET BY MOUTH EVERY DAY active Not Available Not Available No t Available carvedilo l 6.25 mg tablet TAKE 1 TABLET BY MOUTH TWICE A DAY active Not Available Not Available No t Available doxycycli ne hyclate 100 mg capsule Take 1 capsule twice a day by oral route with meal(s) for 10 days, for left maxillar y sinusiti s. active Not Available Not Available No t Available Medrol (Jeff) 4 mg tablets in a dose pack Take 06/11 completed Medicati on ID: [id number] P rescribe d By Name: Joleen Cruz MD Brand Name: Medrol (Jeff) Se nd Method: E-Prescr ibed Sub s Allowed: subs OK Rauli al Instruct ion: take as instruct ed Medic ationGen ericName : Medrol (Jeff) Not Available Not Available Not Available prednison e 20 mg tablet by mouth 2023 active Medicati on ID: [id number] B rand Name: predniso ne Send Method: E-Prescr ibed Sub s Allowed: subs OK Speci al Instruct ion: Take 3 tabs daily for 3 days then 2 tabs daily for 3 days then 1 tabs daily for 3 days then stop Med icationG enericNa me: predniso ne Not Available Not Available Not Available clonazepa m 0.5 mg tablet PLEASE SEE ATTACHED FOR DETAILED DIRECTIO NS active Not Available Not Available No t Available clonazepa m 1 mg tablet TAKE 1 TABLET BY ORAL ROUTE 2 TIMES PER DAY NEEDED FOR ANXIETY. active Not Available Not Available No t Available Lantus U-100 Insulin 100 unit/mL subcutane ous solution TO ADMINIST ER 34 UNITS EVERY NIGHT IN THE EVENT OF PUMP MALFUNCT ION. E11.9 active Not Available Not Available No t Available Tylenol Arthritis Pain 650 mg tablet,ex tended release 09/30 completed Medicati on ID: [id number] B rand Name: Tylenol Arthriti s Pain Sen d Method: E-Prescr ibed Sub s Allowed: subs OK Medic ationGen ericName : Tylenol Arthriti s Pain Not Available Not Available Not Available warfarin 2.5 mg tablet TAKE 6 TABLETS BY MOUTH EVERY DAY DIRECTED FOR 90 DAYS active Not Available Not Available No t Available oxcarbaze pine 300 mg tablet 09/30 completed Medicati on ID: [id number] B rand Name: oxcarbaz epine Se nd Method: E-Prescr ibed Sub s Allowed: subs OK Medic ationGen ericName : oxcarbaz epine Not Available Not Available Not Available acetamino phen 300 mg-codein e 30 mg tablet active Medicati on ID: [id number] B rand Name: acetamin ophen-co deine Se nd Method: E-Prescr ibed Sub s Allowed: subs OK Medic ationGen ericName : acetamin ophen-co deine Not Available Not Available Not Available hydrocodo ne 10 mg-acetam inophen 325 mg tablet TAKE 1 TABLET BY MOUTH EVERY 4 TO 6 HOURS NEEDED FOR PAIN FOR 7 DAYS active Not Available Not Available No t Available amoxicill in 500 mg tablet TAKE 2000 MG (4 X 500 MG) ORALLY ONCE active Not Available Not Available No t Available carvedilo l 3.125 mg tablet TAKE 1 TABLET BY MOUTH 2 TIMES A DAY WITH 6.25 MG DOSE active Not Available Not Available No t Available levothyro xine 25 mcg tablet 09/30 completed Medicati on ID: [id number] B rand Name: levothyr oxine Se nd Method: E-Prescr ibed Sub s Allowed: subs OK Medic ationGen ericName : levothyr oxine Not Available Not Available Not Available hydrocort isone 2.5 % topical cream with perineal applicato r 06/11 completed Medicati on ID: [id number] B rand Name: hydrocor tisone S end Method: E-Prescr ibed Sub s Allowed: subs OK Medic ationGen ericName : hydrocor tisone Not Available Not Available Not Available amoxicill in 875 mg tablet TAKE 1 TABLET BY MOUTH TWICE A DAY FOR 7 DAYS active Not Available Not Available No t Available famotidin e 20 mg tablet TAKE 1 TABLET BY MOUTH TWICE A DAY active Not Available Not Available No t Available trazodone 100 mg tablet active Medicati on ID: [id number] B rand Name: trazodon e Send Method: E-Prescr ibed Sub s Allowed: subs OK Medic ationGen ericName : trazodon e Medica tion ID: [id number] B rand Name: trazodon e Send Method: E-Prescr ibed Sub s Allowed: subs OK Medic ationGen ericName : trazodon e Not Available Not Available Not Available benzonata te 100 mg capsule TAKE 1 CAPSULE BY MOUTH THREE TIMES A DAY FOR 3 DAYS active Not Available Not Available No t Available levothyro xine 50 mcg tablet active Medicati on ID: [id number] B rand Name: levothyr oxine Se nd Method: E-Prescr ibed Sub s Allowed: subs OK Medic ationGen ericName : levothyr oxine Not Available Not Available Not Available cephalexi n 500 mg capsule TAKE 1 CAPSULE BY MOUTH FOUR TIMES A DAY active Not Available Not Available No t Available tacrolimu s 0.1 % topical ointment 06/11 completed Medicati on ID: [id number] B rand Name: tacrolim us Send Method: E-Prescr ibed Sub s Allowed: subs OK Medic ationGen ericName : tacrolim us Not Available Not Available Not Available trazodone 150 mg tablet TAKE 1-2 TABLETS BY MOUTH AT BEDTIME NEEDED active Not Available Not Available No t Available ferrous sulfate 325 mg (65 mg iron) tablet TAKE 1 TABLET BY MOUTH IN THE MORNING AND IN THE EVENING active Not Available Not Available No t Available clotrimaz ole-betam ethasone 1 %-0.05 % topical cream APPLY 1 APPLICAT ION EXTERNAL LY TWICE A DAY active Not Available Not Available No t Available omeprazol e 20 mg capsule,d elayed release TAKE 1 CAPSULE BY MOUTH EVERY DAY IN THE MORNING active Not Available Not Available No t Available oxcarbaze pine 600 mg tablet TAKE 1 TABLET BY MOUTH TWICE A DAY active Not Available Not Available No t Available hydrocort isone 2.5 % topical cream MIX WITH CICLOPIR OX CREAM AND APPLY TWICE DAILY TO AFFECTED SKIN FOLDS UNTIL IMPROVED . active Not Available Not Available No t Available hydroxyzi ne HCl 25 mg tablet 06/11 completed Medicati on ID: [id number] B rand Name: hydroxyz ine HCl Send Method: E-Prescr ibed Sub s Allowed: subs OK Medic ationGen ericName : hydroxyz ine HCl Not Available Not Available Not Available codeine 10 mg-guaife nesin 100 mg/5 mL oral liquid TAKE 10 ML BY MOUTH EVERY 4 HOURS FOR 5 DAYS NEEDED active Not Available Not Available No t Available Culturell e 10 billion cell capsule Take 1 capsule twice a day by oral route for 10 days. 2023 active Not Available Not Available Not Avai lable gabapenti n 100 mg capsule active Not Available Not Available Not Available azelastin e 137 mcg (0.1 %) nasal spray 09/30 completed Medicati on ID: [id number] B rand Name: azelasti ne Send Method: E-Prescr ibed Sub s Allowed: subs OK Medic ationGen ericName : azelasti ne Not Available Not Available Not Available albuterol sulfate HFA 90 mcg/actua tion aerosol inhaler INHALE 2 PUFFS BY MOUTH EVERY 4 HOURS NEEDED 16 active Not Available Not Available No t Available fluticaso ne propionat e 50 mcg/actua tion nasal spray,dianne pension SPRAY 1 SPRAY BY INTRANAS AL ROUTE EVERY DAY active Not Available Not Available No t Available clotrimaz ole 1 % topical cream APPLY 1 APPLICAT ION EXTERNAL LY TWICE A DAY active Not Available Not Available No t Available doxycycli ne hyclate 100 mg tablet TAKE 1 TABLET BY MOUTH TWICE A DAY FOR 10 DAYS active Not Available Not Available No t Available amoxicill in 875 mg-potass ium clavulana te 125 mg tablet Take 1 tablet every 12 hours by oral route for 10 days. active Not Available Not Available No t Available buspirone 15 mg tablet TAKE 1 TABLET BY MOUTH TWICE A DAY active Not Available Not Available No t Available oxycodone 5 mg tablet TAKE 1 TABLET BY MOUTH EVERY 6 HOURS NEEDED FOR PAIN FOR 7 DAYS active Not Available Not Available No t Available hydroxyzi ne pamoate 25 mg capsule TAKE 1 CAPSULE BY MOUTH THREE TIMES A DAY NEEDED active Not Available Not Available No t Available enoxapari n 120 mg/0.8 mL subcutane ous syringe INJECT 1 PEN EVERY 12 HOURS DIRECTED active Not Available Not Available No t Available escitalop brittany 20 mg tablet TAKE 1 TABLET BY MOUTH EVERY DAY active Not Available Not Available No t Available Vitamin D3 25 mcg (1,000 unit) tablet 09/30 completed Medicati on ID: [id number] B rand Name: Vitamin D3 Send Method: E-Prescr ibed Sub s Allowed: subs OK Medic [facility] ericName : Vitamin D3 Not Available Not Available Not Available Restasis 0.05 % eye drops in a dropperet te INSTILL DROP INTO BOTH EYES 2 TIMES A DAY. active Not Available Not Available No t Available aripipraz ole 5 mg tablet TAKE 1 TABLET BY MOUTH EVERY DAY active Not Available Not Available No t Available Ciprodex 0.3 %-0.1 % ear drops,dianne pension Instill 5 drop into right ear twice a day as directed 2022 active Medicati on ID: [id number] D uration Value: 14 Brand Name: Ciprodex Send Method: E-Prescr ibed Sub s Allowed: subs OK [facility]dex Not Available Not Available Not Available escitalop brittany 5 mg tablet TAKE 1 TABLET BY MOUTH ONCE DAILY. TAKE TOGETHER WITH 20 MG FOR TOTAL OF 25 MG PER DAY active Not Available Not Available No t Available Cinnamon 500 mg capsule 09/30 completed Medicati on ID: [id number] B rand Name: Cinnamon Send Method: E-Prescr ibed Sub s Allowed: subs OK [facility] : Cinnamon Not Available Not Available Not Available BD Ultra-Fin e Short Pen Needle 31 gauge x 5/16 USE DIRECTED TO ADMINIST ER VICTOZA DAILY 90 DAYS active Not Available Not Available No t Available aripipraz ole 2 mg tablet TAKE 1 TABLET BY MOUTH EVERY DAY active Not Available Not Available No t Available Lantus Solostar U-100 Insulin 100 unit/mL (3 mL) subcutane ous pen active Not Available Not Available Not Available Humalog KwikPen (U-100) Insulin 100 unit/mL subcutane ous active Not Available Not Available Not Available GaviLyte- G 236 gram-22.7 4 gram-6.74 gram-5.86 gram oral solution TAKE 4000 ML DIRECTED active Not Available Not Available No t Available mirabegro n ER 50 mg tablet,ex tended release 24 hr TAKE 1 TABLET BY MOUTH EVERY DAY active Not Available Not Available No t Available Linzess 145 mcg capsule TAKE 1 CAPSULE BY MOUTH EVERY DAY active Not Available Not Available No t Available Victoza 2-Jeff 0.6 mg/0.1 mL (18 mg/3 mL) subcutane ous pen injector INJECT 1.8 MG UNDER THE SKIN ONCE DAILY active Not Available Not Available No t Available Eliquis 5 mg tablet TAKE 1 TABLET BY MOUTH TWICE A DAY active Not Available Not Available No t Available Trulicity 1.5 mg/0.5 mL subcutane ous pen injector INJECT 1 PEN SUBCUTAN EOUSLY ONCE WEEKLY. ROTATE INJECTIO N SITES. active Not Available Not Available No t Available Centrum Silver Women 8 mg iron-400 mcg-50 mcg tablet 09/30 completed Medicati on ID: [id number] B rand Name: Centrum Silver Women Se nd Method: E-Prescr ibed Sub s Allowed: subs OK Medic ationGen ericName : Centrum Silver Women Not Available Not Available Not Available Wixela Inhub 250 mcg-50 mcg/dose powder for inhalatio n INHALE 1 PUFF BY MOUTH TWICE A DAY active Not Available Not Available No t Available Mounjaro 7.5 mg/0.5 mL subcutane ous pen injector INJECT 7.5 MG SUBCUTAN EOUS INJECTIO N EVERY WEEK. ROTATE INJECTIO N SITES active Not Available Not Available No t Available Mounjaro 5 mg/0.5 mL subcutane ous pen injector active Medicati on ID: [id number] B rand Name: Иван Send Method: E-Prescr ibed Sub s Allowed: subs OK Medic ationGen ericName : Mounjaro Not Available Not Available Not Available Mounjaro 10 mg/0.5 mL subcutane ous pen injector INJECT 1 PEN SUBCUTAN EOUS INJECTIO N EVERY WEEK,INS TR:ROTAT E INJECTIO N SITES active Not Available Not Available No t Available Mounjaro 2.5 mg/0.5 mL subcutane ous pen injector PLEASE SEE ATTACHED FOR DETAILED DIRECTIO NS active Not Available Not Available No t Available Lagevrio 200 mg capsule (EUA) TAKE 4 CAPSULES BY MOUTH EVERY 12 HOURS FOR 5 DAYS active Not Available Not Available No t Available Clenpiq 10 mg-3.5 gram-12 gram/175 mL oral solution TAKE 160 ML BY MOUTH DIRECTED BY DOCTORS OFFICE. active Not Available Not Available No t Available Vitals Date Recorded Body height Body mass index (BMI) Body weight Provider Name and Address Organization Details Last Updated DateTime 08/10/2023 162.56 cm 43.9 kg/m2 719953.65 g Deborah Godfrey [place] - [facility] 08/10/2023 15:56:40 Date Recorded Body height Provider Name an d Address Organization Details Last Updated DateTime 08/25/2023 162.56 cm Jacob Bishop [place] - [facility] 08/25/2023 14:03:50 Date Recorded Body height Body mass index (BMI) Body weight Provider Name and Address Organization Details Last Updated DateTime 09/28/2023 162.56 cm 43.4 kg/m2 581711.87 g Jacob Bishop [place] - [facility] 09/28/2023 11:59:23 Date Recorded Body height Body mass index (BMI) Body weight Provider Name and Address Organization Details Last Updated DateTime 07/24/2023 162.56 cm 43.9 kg/m2 070157.65 g Jacob Bishop [place] - [facility] 07/24/2023 11:37:39 Social History None recorded. Functional Status None recorded. Mental Status None recorded. Family History Nothing Reported. Medical History Condition Response Diabetes Y Anxiety Y GERD/Reflux Y High Cholesterol Y Sleep Disorder Y Thyroid Problems Y Hypertension Y Depression Y Gynecological HistoryNo gynecological history recorded. Obstetrics History GPAL:G 0 P 0 0 0 0 Past Encounters Encounter ID Performer Location Encounter Start Date Encounter Closed Date Diagnosis/Indication Diagnosis SNOMED-CT Code Diagnosis ICD10 Code Diagnosis Note [id number] ELENITA KANG MD [facility] [address] [address] 07/24/2023 10:58:36 07/24/2023 13:19:59 Chronic sinusitis 57865786 J32.9 J32.8 Because of increased symptoms on the right side, CT scan was performed. There is minimal mucosal thickening in the right maxillary and right frontal recess but complete opacificat ion of the left maxillary sinus persists with a left sigifredo bullosa. We discussed proceeding with left-sided surgery only given that she would also need a septoplast y and the disease is minimal on the right side. She will try to hold off doing irrigation s to see if that will help with her ear pressure. She will just use saline spray and Flonase during the day. We reviewed the risks and benefits of surgery and a handout was given Deviated nasal septum 12 [id number] J34.2 Abnormal a uditory perception [id number] H93.293 Tymp and SRT reviewedA speech awareness threshold test, tympanomet ry, and distortion product otoacousti c emission test were performed. Results are as follows: Speech Awareness/ Rod Cup Filler Test: Right Ear:{{with in normal limits 0 dB(HL) 5 dB(HL) 10 dB(HL)* 15 dB(HL) 20 dB(HL) 25 dB(HL) 30 dB(HL) 35 dB(HL) 40 dB(HL) 45 dB(HL) 50 dB(HL) 55 dB(HL) 60 dB(HL) 65 dB(HL) 70 dB(HL) 75 dB(HL) 80 dB(HL) 85 dB(HL) 90 dB(HL) 95 dB(HL) 100 dB(HL) 105 dB(HL) No response at maximum transducer limit}} Left Ear:{{with in normal limits 0 dB(HL) 5 dB(HL) 10 dB(HL)* 15 dB(HL) 20 dB(HL) 25 dB(HL) 30 dB(HL) 35 dB(HL) 40 dB(HL) 45 dB(HL) 50 dB(HL) 55 dB(HL) 60 dB(HL) 65 dB(HL) 70 dB(HL) 75 dB(HL) 80 dB(HL) 85 dB(HL) 90 dB(HL) 95 dB(HL) 100 dB(HL) 105 dB(HL) No response at maximum transducer limit}} Tympanomet ry: Right Ear:{{Type A Type As Type Ad* Type C Type C, shallow & rounded Ty pe B Type B with large volume Cou ld not maintain a hermetic seal}} Left Ear:{{Type A* Type As Type Ad Type C Type C, shallow & rounded Ty pe B Type B with large volume Cou ld not maintain a hermetic seal}} [id number] MIKE MONTOYA MD [facility] [address] [address] 08/10/2023 15:42:46 08/10/2023 16:16:37 Chronic sinusitis 45408834 J32.8 Postoperative visit 1836 67477 Z48.89 [id number] ELENITA KANG MD [facility] [address] [place] [address] 08/25/2023 13:59:35 08/25/2023 14:34:07 Chronic left maxillary sinusitis [id number] 2261911 J32.0 No residual infection. Debridemen t performed. Suggest gentle irrigation to avoid ear symptoms. Burning mouth has improved. She can take some probiotics . Follow-up 4 weeks. Abnormal a uditory perception 10641168 H93.293 No fluid Obstructiv e sleep apnea syndrome 26795173 G47.33 Resume CPAP [id number] ELENITA KANG MD [facility] [address] [place] [address] 09/28/2023 11:30:17 09/28/2023 12:14:30 Chronic left maxillary sinusitis [id number] 9897466 J32.0 No residual infection. Debridemen t performed. Suggest gentle irrigation to avoid ear symptoms. Burning mouth has improved. She can take some probiotics . Follow-up 4 weeks. Deviated nasal septum 12 9759069 J34.2 [id number] GARRY LINK MD [facility] [address] [place] [address] 01/08/2024 10:59:57 01/08/2024 11:42:28 Deviated nasal septum 104089376 J34.2 right Chronic le ft maxillary sinusitis [id number] 0902177 J32.0 Health Concerns Section Related Observation LastModified by Organization Detai ls LastModified Time None Recorded Concern Status LastModified by Organization Details LastModified Time None Recorded Advance Directives Directive None Recorded Payers Encounter Date Sequence Insurance Name Policy Number Policy Azul Covered Member ID Azul Member ID Guarantor Name 07/24/2023 2 [place] [facility] Esperanza Mónica Dianne [id number] Esperanza M Dianne 07/24/2023 [address] [place] [id number] Esperanzamurtaza Sales Dianne [id number] Esperanza M Dianne 08/10/2023 2 [place] [facility] Esperanza M Dianne [id number] Esperanza M Dianne 08/10/2023 [address] [place] [id number] Esperanza M M Dianne [id number] Esperanza M Dianne 08/25/2023 2 [place] [facility] Esperanza Mónica Dianne [id number] Esperanza M Dianne 08/25/2023 [address] [place] [id number] Esperanza Mónica M Dianne [id number] Esperanza M Dianne 09/28/2023 2 [place] [facility] Esperanza M Dianne [id number] Esperanza M Dianne 09/28/2023 [address] [place] [id number] Esperanza Sales M Dianne [id number] Esperanza M Dianne 01/08/2024 2 [place] [facility] Esperanza M Dianne [id number] Esperanza M Dianne 01/08/2024 [address] [place] [id number] Esperanza Sales M Dianne [id number] Esperanza M Dianne Notes Date Note Type Note Provider Name and Address Organization Details Recorded Time 07/24/2023 text/html No change with prednisone or abx. Still has facial pressure and ear fullness L > R prior [id number] with chronic left maxillary sinusitis. Symptoms started in February. Was treated with amoxicillin and doxycycline. When I saw her in April, there was no evidence of purulent drainage on nasal endoscopy and I had recommended Medrol Dosepak. Unfortunately she experience only marginal improvement. CT sinus today was completed and demonstrates complete opacification of the left maxillary sinus, mild mucosal thickening in the right maxillary sinus and floor of bilateral frontal sinuses, left sigifredo bullosa and right deviated septum.?In light of these findings and still no purulent drainage from the nose, recommend higher dose of steroids. Course of prednisone prescribed today. Also recommend daily nasal saline irrigation's. Marcos med bottle was provided today and we reviewed instructions on use .?Esperanza should follow-up with one of my colleagues in six weeks. If still no improvement at that point would likely benefit from limited endoscopic sinus surgery. ELENITA MONTANO MD 100 [facility],[address], [address], [facility] - [facility] 07/24/2023 12:45:01 08/10/2023 text/html 62-year-old fema le presents status post left maxillary antrostomy with sigifredo bullosa resection on 08/08/[address] Montano. She is doing well postoperatively. Currently on amoxicillin. MIKE MONTOYA MD 100 [facility],[address], [address], [facility] 08/10/2023 17:13:02 08/25/2023 text/html Patient seen following endoscopic surgery she is August 07. She still has some left facial pressure, ear fullness and nasal discharge. No HL. Smell and taste ok. Been irrigating twice daily and using saline solution 3-4 times per day. Finished abx but got burning. No thrush. Holding CPAP ELENITA MONTANO MD 100 [facility], [place], [address], [facility] - [facility] 08/25/2023 14:22:37 09/28/2023 text/html Patient with chronic sinusitis status post left-sided surgery. She has a known rightward septal deviation and had mild sinus thickening on that side. We elected to proceed with left-sided surgery only. She notes significant improvement and just a little bit of congestion in the morning. ELENITA MONTANO MD 100 [facility],[place] [address], [place], [address], [place] - [facility] 09/28/2023 12:08:38 01/08/2024 text/html 63 year old femjan reynoso presents following left maxillary FESS on 08/08/[address] Montano. She reports left maxillary pain with referred left otalgia for one month. She has associated yellow nasal drainage from left nostril and anosmia for 2 days. Denies nasal congestion. She contracted Covid-19 eight weeks ago. She has been using the Neti Pot and saline spray every other day, which offer some relief. GARRY LINK MD 100 [facility], [place], [address], [place] - [facility] 01/08/2024 21:13:08 OBGyn Episode No OBEpisode recorded.
--- OUTSIDE RECORDS SUMMARY | 2024-05-24 10:20 | XMS_ITS | Encounter Summary ---
Author Organization [facility] Address [address] [place] [address] Care Team Providers Care Crop Farmers Name Role Phone Janak Greer MD Primary Care Provider [phone] Encounter Details Date Type Department Care Team (Late st Contact Info) Description 10/07/2022 [facility]phone [facility] [address] [phone] Rommel Whyte MD [address] [place] [address] Social History Tobacco Use Types Packs/Day Years [...] on filedocumented in this encounter Care Teams Crop Farmers Relationship Specialty Start Date End Date Janak Greer MD [address] [place] [address] PCP - General Internal Medicine 08/09/22 documented as of this encounter
--- OUTSIDE RECORDS SUMMARY | 2024-05-24 10:20 | XMS_ITS | Encounter Summary ---
Author Organization [facility] Address [address] [place] [address] Care Team Providers Care Spring Assembler Name Role Phone Janak Greer MD Primary Care Provider [phone] Encounter Details Date Type Department Care Team (Late st Contact Info) Description 09/30/2022 [facility]ill [facility] [address] [address] Rommel Whyte MD [address] [place] [address] [place] [address] Chronic pain of left ankle Social History Tobacco Use Types Packs/Day Years [...] as of this encounter Visit Diagnoses Diagnosis Chronic pain of left ankle documented in this encounter Care Teams Spring Assembler Relationship Specialty Start Date End Date Janak Greer MD [address] [place] [address] PCP - General Internal Medicine 08/09/22 documented as of this encounter
--- OUTSIDE RECORDS SUMMARY | 2024-05-24 10:21 | XMS_ITS | Clinical Summary ---
Author Organization [facility] Address [address] [place] [address] Care Team Providers Care Ship Superintendent Name Role Phone Janak Greer MD Primary Care Provider [phone] Allergies No known active allergies Medications No known medications Active Problems No known active problems Immunizations Name Administration Dates Next Due Covid-19 MRNA Vaccine - Pfizer 12+ (Purple Cap) 10/27/2021 Social History Tobacco Use Types Packs/Day Years Used Date Smoking Tobacco: Never Smokeless Tobacco: Never Tobacco Cessation:Counseling Given: Not Answered Sex and Gender Information Value Date Recorded Sex Assigned at Female 10/12/2022 6:28 PM EDT Gender Identity Female 08/08/2022 9:13 PM EDT Sexual Orientation Heterosexual (straight) 08/08 9:13 PM EDT Plan of Treatment Health Maintenance Due Date Last Done Comments Hepatitis C Virus Screening 1961 HIV Screening 1974 DTaP/Tdap/Td Vaccines (1 - Tdap) 1980 Pap Smear (Ages 21-65) 1982 Mammogram 2001 Colonoscopy 2006 Pneumococcal Vaccines 50+ (1 of 1 - PCV) 11/16/2011 Zoster (Shingles) Vaccine (1 of 2) 11/16/2011 RSV Vaccine 60 years and older and Patients (1 - Risk 60-74 years 1-dose series) 2021 Influenza Vaccine 09/14/2023 2022, , 10/01/2019, Additional history exists COVID-19 Vaccine ( season) 2023 2022, 10/27/2021 Hepatitis B Vaccines Aged Out No long er eligible based on patient's age to complete this topic Care Teams Ship Superintendent Relationship Specialty Start Date End Date RoJanak MD [address] [place] [address] PCP - General Internal Medicine 08/09/22
--- OUTSIDE RECORDS SUMMARY | 2024-05-24 10:21 | XMS_ITS | Clinical Summary ---
Author Organization [facility], Address [address] [place] [address] [place] [address] Phone Care Team Providers Care Forestry Fire Aid Name Role Phone Janak Greer MD Primary Care Provider [phone] Allergies No known active allergies Medications aspirin (ST JULI) 81 MG EC tablet Take 1 tablet by mouth 1 (one) time each day Active Multiple Vitamins-Electrotype Molder als (CENTRUM SILVER PO) Take 1 tablet by mouth 1 (one) time each day Active cetirizine (ZyrTEC) 10 MG tablet Take 1 tablet by mouth 1 (one) time each day Active glucose blood test strip Active atorvastatin (LIPITOR) 80 MG tablet Take 1 tablet by mouth 1 (one) time each day Active cycloSPORINE (RESTASIS) 0.05 % ophthalmic emulsion Active warfarin (COUMADIN) 5 MG tablet Take 1 tablet by mouth 1 (one) time each day Active Blood Glucose Monitoring Suppl (FREESTYLE LITE) device USE TO TEST BLOOD SUGAR EVERY DAY 9 Active clonazePAM (KlonoPIN) 1 MG tablet 9 Active Continuous Blood Gluc Nut Orchardist (FREESTYLE KAPIL 14 DAY READER) device 9 Active Continuous Blood Gluc Sensor (FREESTYLE KAPIL 14 DAY SENSOR) misc USE EVERY 14 DAYS 0 Active LANTUS 100 UNIT/ML injection INJECT 20 UNITS SUBCUTANEOUSLY IN THE AM AND 28 UNITS IN THE PM 0 Active HUMALOG 100 UNIT/ML injection 9 Active BD VEO INSULIN SYRINGE U/F 31G X 15/64 0.3 ML misc INJECT 5 TIMES DAILY 0 Active Lancets (FREESTYLE) lancets USE TO TEST BLOOD SUGAR 3 TIMES A DAY 9 Active levothyroxine (SYNTHROID, LEVOTHROID) 25 MCG tablet Take 25 mcg by mouth daily 0 Active OXcarbazepine (TRILEPTAL) 300 MG tablet Take 600 mg by mouth 2 (two) times a day 0 Active famotidine (PEPCID) 20 MG tablet famotidine 20 mg tablet Active escitalopram (LEXAPRO) 20 MG tablet escitalopram 20 mg tablet Active furosemide (LASIX) 40 MG tablet Take 40 mg by mouth 1 (one) time each day 1 Active traZODone (DESYREL) 50 MG tablet Take 2 tablets (100 mg total) by mouth at bed time 30 tablet 1 Active albuterol HFA (PROVENTIL HFA;VENTOLIN HFA) 108 (90 Base) MCG/ACT inhaler 1 Active dicyclomine (BENTYL) 20 MG tablet 1 Active doxycycline (VIBRA-TABS) 100 MG tablet 1 Active Hydrocortisone , Perianal, 2.5 % cream 1 Active omeprazole (PriLOSEC) [address] capsule 1 Active carvedilol (COREG) 6.25 MG tablet TAKE 1 TABLET BY MOUTH TWO TIMES A DAY 2 Active clobetasol (TEMOVATE) 0.05 % cream PLEASE SEE ATTACHED FOR DETAILED DIRECTIONS 2 Active doxycycline (VIBRAMYCIN) 100 MG capsule Take 100 mg by mouth in the morning and 100 mg in the evening. 2 Active enoxaparin (LOVENOX) 150 MG/ML injection INJECT 129MG SUBCUTANEOUSLY EVERY 12 HOURS FOR 10 DAYS 2 Active gabapentin (NEURONTIN) 300 MG capsule 2 Active levothyroxine (SYNTHROID, LEVOTHROID) 50 MCG tablet TAKE 1 TAB BY MOUTH MON,WED,FRI, AND 1/2 TAB REST OF WEEK 2 Active mupirocin (BACTROBAN) 2 % ointment APPLY TOPICALLY TO THE AFFECTED AREA ON THE LEFT LOWER LEG TWICE A DAY UNTIL HEALED 2 Active oxyCODONE (ROXICODONE) 5 MG immediate release tablet TAKE 1-2 TABS DIRECTED BY MOUTH EVERY 8 HRS NEEDED FOR PAIN DONT DRIVE WHILE TAKING THIS MED 2 Active triamcinolone (KENALOG) 0.1 % cream PLEASE SEE ATTACHED FOR DETAILED DIRECTIONS 2 Active ferrous sulfate 325 (65 Fe) MG tablet TAKE 1 TABLET BY MOUTH IN THE MORNING AND 1 TABLET IN THE EVENING. 180 tablet 3 3 Active Active Problems Problem Noted Date Diagnosed Date Hypertensive disorder 10/24/2019 Diabetes mellitus 10/24/2019 Chronic kidney disease due to hypertension 03/19 Chronic kidney disease stage 3 03/19/2019 Renal disorder due to type 2 diabetes mellitus 0 03/19/2019 Immunizations Immunization Administration Dates Next Due Influenza, MDCK, PF, Quadrivalent 10/17/2018 Influenza, Quadrivalent, Preservative Free 09/30 Family History Medical History Relation Comments Hypertension Father Cancer Mother colon Hypertension Mother Relation Status Comments Father Mother Social History Tobacco Use Types Packs/Day Years Used Date Smoking Tobacco: Former Cigarettes Q uit: 04/18/2018 Alcohol Use Standard Drinks/Week Comments No 0 (1 standard drink = 0.6 oz pur e alcohol) Comments Unknown Sex and Gender Information Value Date Recorded Sex Assigned at Not on file Legal Sex Female 4:32 PM EST Gender Identity Not on file Sexual Orientation Not on file Last Filed Vital Signs Vital Sign Reading Time Taken Comments Blood Pressure 126/62 02/21/2024 1:31 PM EST Pulse - - Temperature - - Respiratory Rate - - Oxygen Saturation - - Inhaled Oxygen Concentration - - Weight 117 kg (257 lb) 08/16/2023 1:58 PM EDT Height 162.6 cm (5' 4 ) 10/04/2018 12:00 PM EDT Body Mass Index 44.11 10/04/2018 12:00 PM EDT Plan of Treatment Upcoming Encounters Date Type Department Care Team (Late st Contact Info) Description 09/02/2024 1:30 PM EDT Office Visit [facility] [place], [address] [facility] [address] Kelechi Moran MD [address] [facility] [place] [address] Health Maintenance Due Date Last Done Comments Breast Cancer Screening 1961 Pneumococcal Vaccine: Peds ( 0 to 5 Years) and At-Risk Patients (6 to 49 Years) (1 of 2 - PCV) 11/16/1967 Colorectal Cancer Screening: Annual FOBT 2010 Colorectal Cancer Screening: Colonoscopy 2010 Colorectal Cancer Screening: Sigmoidoscopy 2010 Diabetes: Hemoglobin A1C 03/19/2019 Diabetes: Ophthalmology Exam 03/19/2019 Diabetes: Pedal Pulse Checked 03/19/2019 Diabetes: Sensory Foot Exam 03/19/2019 Diabetes: Visual Foot Exam 03/19/2019 Influenza Vaccine (Season Ended) 2024 10/01/2019, 10/17/2018 Hepatitis B Vaccine Aged Out No longe r eligible based on patient's age to complete this topic [place] [address] Medicaid [place] Care Teams Forestry Fire Aid Relationship Specialty Start Date End Date Janak Greer MD [address] PCP - General 12/18/18
--- OUTSIDE RECORDS SUMMARY | 2024-05-24 10:21 | XMS_ITS | Encounter Summary ---
Author Organization [facility] Address [address] [address] Phone Care Team Providers Care Hardwood Floor Installation Helper Name Role Phone Janak Greer MD Primary Care Provider [phone] Encounter Details Date Type Department Care Team (Late Contact Info) Description 02/26/2021 Documentation Only [facility] [address] [place] [address] Kelechi Moran MD [address] [place] [address] [place] [address] Social History Tobacco Use Types [...] Visit [facility] [address] [place] [address] Kelechi Moran MD [address] [place] [address] [place] [address] documented as of this encounter Visit Diagnoses Not on filedocumented in this encounter Care Teams Hardwood Floor Installation Helper Relationship Specialty Start Date End Date Janak Greer MD [address] PCP - General 12/18/18 documented as of this encounter
== END 2024-05-24 10:42 | disposition home or self-care (01) ==
LOC: HO.HOS 09:46
PROVIDERS: PCP Internal Medicine
DX: M77.8 Other enthesopathies, not elsewhere classified (principal)
CPT/HCPCS: 99213

== ENCOUNTER → 2024-05-24 09:45 | Outpatient (BNVA) | payer MEDICARE, MEDICAID, SELFPAY | PROVIDERS: PCP Internal Medicine | DX: M77.8 Other enthesopathies, not elsewhere classified (principal) | CPT/HCPCS: 99212 ==

== ENCOUNTER 2024-05-27 07:58 | Outpatient (AMB) | payer MEDICARE, MEDICAID, SELFPAY ==
--- OUTSIDE RECORDS SUMMARY | 2024-05-27 08:03 | XMS_ITS | Encounter Summary ---
Author Organization [facility] Address [address] [address] Phone Care Team Providers Care Powder Press Operator Name Role Phone Janak Greer MD Primary Care Provider Reason for Visit * Reason Comments New Med Request Encounter Details Date Type Department Care Team (Late Contact Info) Description 04/12/2022 Refill [facility] [address] [place] [address] Kelechi Moran MD [address] [place] [address] [place] [address] Social History Tobacco Use Types [...] Visit [facility] [address] [place] [address] Kelechi Moran MD [address] [place] [address] [place] [address] documented as of this encounter Visit Diagnoses Not on filedocumented in this encounter Care Teams Powder Press Operator Relationship Specialty Start Date End Date Janak Greer MD [address] PCP - General 12/18/18 documented as of this encounter
--- OUTSIDE RECORDS SUMMARY | 2024-05-27 08:03 | XMS_ITS | Encounter Summary ---
Author Organization [facility] Address [address] [address] Phone Care Team Providers Care Pulmonology Technician Name Role Phone Janak Greer MD Primary Care Provider [phone] Encounter Details Date Type Department Care Team (Late Contact Info) Description 04/01/2021 Documentation Only [facility] [address] [place] [address] Kelechi Moran MD [address] [place] [address] [place] [address] Social History Tobacco Use Types [...] Visit [facility] [address] [place] [address] Kelechi Moran MD [address] [place] [address] [place] [address] documented as of this encounter Visit Diagnoses Not on filedocumented in this encounter Care Teams Pulmonology Technician Relationship Specialty Start Date End Date Janak Greer MD [address] PCP - General 12/18/18 documented as of this encounter
--- OUTSIDE RECORDS SUMMARY | 2024-05-27 08:03 | XMS_ITS | Encounter Summary ---
Author Organization [facility] Address [address] [address] Phone Care Team Providers Care Insole Buffer Name Role Phone Janak Greer MD Primary Care Provider [phone] Encounter Details Date Type Department Care Team (Late Contact Info) Description 02/26/2021 Documentation Only [facility] [address] [place] [address] Kelechi Moran MD [address] [place] [address] [place] [address] Social History Tobacco Use Types [...] Visit [facility] [address] [place] [address] Kelechi Moran MD [address] [place] [address] [place] [address] documented as of this encounter Visit Diagnoses Not on filedocumented in this encounter Care Teams Insole Buffer Relationship Specialty Start Date End Date Janak Greer MD [address] PCP - General 12/18/18 documented as of this encounter
--- OUTSIDE RECORDS SUMMARY | 2024-05-27 08:03 | XMS_ITS | Clinical Summary ---
Author Organization [facility] Address [address] [place] [address] Phone Care Team Providers Care Line O Scribe Operator Name Role Phone Janak Greer MD Primary Care Provider [phone] Allergies No known active allergies Medications apixaban [...] Description 03/04/2024 8:38 AM EST Anesthesia Event [facility] Endoscopy [address] [place] [phone] Lino Garcia MD Abrokwah, Foster Myles G, CRNA 03/04/2024 7:36 AM EST - 03/04/2024 11:59 PM EST Hospital Encounter [facility] Endoscopy [address] [place] [phone] Yovanny Harvey MD Abrokwah, Foster Myles G, [...] mellitus type 2, uncomplicated (HCC) Bipolar disorder ([facility]/HCC V2 4, [facility] V28) 02/25/2020 DX:Bipolar disorder (HCC) SHAWN (obstructive sleep apnea) 02/25/2020 DX :SHAWN (obstructive sleep apnea) Severe obesity with body mas s index (BMI) of 35.0 to 39.9 with comorbidity (CMS/HCC V24, CMS/HCC V28) 02/25/2020 DX:Severe obesity with body mass index (BMI) of 35.0 to 39.9 with comorbidity ([facility]) History of pulmonary embolus (PE) 02/25/2020 DX:History of pulmonary embolus (PE) Dyspnea 02/25/2020 DX:Dyspnea Blood clotting tendency (CMS/HCC V24) DX:Blood clotting tendency (HCC) Diabetes mellitus (CMS/[facility] V 24, [facility] V28) DX:Diabetes mellitus (HCC) High blood pressure [...] Months Results * COLONOSCOPY Anesthesia - MAC; [facility] (03/04/2024 8:56 AM EST) [...] previously scheduled. Narrative 03/04/2024 8:56 AM EST [facility] GI Patient Name: Esperanza Dean Procedure Date: [...] Procedure Code(s): ? --- Professional --- ? 59077, Colonoscopy, flexible; diagnostic, including ? collection of specimen(s) by brushing or washing, when ? performed (separate procedure) Diagnosis Code(s): ? --- Professional --- ? Z12.11, Encounter for screening for malignant neoplasm ? of colon CPT copyright 2020 [employer]. All rights reserved. The codes documented in this report are preliminary and upon foreign banknote teller trader review may be revised to meet current compliance requirements. Yovanny Harvey MD 03/04/2024 8:56:08 AM This report has been signed electronically.Yovanny Harvey MD Number of Addenda: 0 Note Initiated On: 03/04/2024 8:33 AM Scope In: Scope Out: ? Endoscopy Department at [facility] - [address] [place] [address], ? [place] [address] Procedure Note Yovanny Harvey MD - 03/04/2024 [facility] GI Patient Name: Esperanza Dean Procedure Date: [...] retroflexion views. Procedure Code(s): --- Professional --- 20756, Colonoscopy, flexible; diagnostic, including collection of specimen(s) by brushing or washing,when performed (separate procedure) Diagnosis Code(s): --- Professional --- Z12.11, Encounter for screening for malignantneoplasm of colon CPT copyright 2020 [employer]. All rights reserved. The codes documented in this report are preliminary and upon foreign banknote teller trader reviewmay be revised to meet current compliance requirements. Yovanny Harvey MD 03/04/2024 8:56:08 AM This report has been signed electronically.Yovanny Harvey MD Number of Addenda: 0 Note Initiated On: 03/04/2024 8:33 AM Scope In: Scope Out: Endoscopy Department at [facility] - [address] [place] [phone] IMPRESSION: - Diverticulosis in the sigmoid colon. - Non-bleeding internal hemorrhoids. - The examination was otherwise normal on directand retroflexion views. - No specimens collected. Recommendation: - Discharge patient to home. - High fiber diet. - Continue present medications. - Resume Eliquis (apixaban) at prior dose today. - Repeat colonoscopy in 10 years formerly [facility]. - Return to GI office as previously scheduled. us Yovanny Harvey MD GI~PROCEDURE ORDERABLES Final Result from Last 3 Months Insurance [employer] [employer] [place] Care Teams Line O Scribe Operator Relationship Specialty Start Date End Date Janak Greer MD PCP - General Internal Medicine 05/26/08
--- OUTSIDE RECORDS SUMMARY | 2024-05-27 08:03 | XMS_ITS | Encounter Summary ---
Author Organization [facility] Address [address] [address] Phone Care Team Providers Care Inside Sales Manager Name Role Phone Janak Greer MD Primary Care Provider [phone] Encounter Details Date Type Department Care Team (Late Contact Info) Description 05/27/2021 Documentation Only [facility] [address] [place] [address] Kelechi Moran MD [address] [place] [address] [place] [address] Social History Tobacco Use Types [...] [facility] [address] [place] [address] Kelechi Moran MD [address] [place] [address] [place] [address] documented as of this encounter Visit Diagnoses Not on filedocumented in this encounter Care Teams Inside Sales Manager Relationship Specialty Start Date End Date Janak Greer MD [address] PCP - General 12/18/18 documented as of this encounter
--- OUTSIDE RECORDS SUMMARY | 2024-05-27 08:03 | XMS_ITS | Clinical Summary ---
Author Organization [facility], Address [address] [place] [address] [place] [address] Phone Care Team Providers Care Material Distributor Name Role Phone Janak Greer MD Primary Care Provider [phone] Allergies No known active allergies Medications aspirin (ST JULI) 81 MG EC tablet Take 1 tablet by mouth 1 (one) time each day Active Multiple Vitamins-Student Services Rep als (CENTRUM SILVER PO) Take 1 tablet [...] MG tablet 9 Active Continuous Blood Gluc Gre Tutor (FREESTYLE KAPIL 14 DAY READER) device 9 [...] Visit [facility] [place], [address] [place] [address] Kelechi Moran MD [address] [facility] [address] [place] [phone] Health Maintenance Due Date Last Done Comments Breast Cancer Screening 1961 Pneumococcal Vaccine: 50+ Years (1 of 2 - PCV) 1980 Colorectal Cancer Screening: Annual FOBT 2010 Colorectal [...] patient's age to complete this topic Insurance Medicaid [place] Care Teams Material Distributor Relationship Specialty Start Date End Date Janak Greer MD [address] PCP - General 12/18/18
--- OUTSIDE RECORDS SUMMARY | 2024-05-27 08:03 | XMS_ITS | Patient Health Record ---
Author Organization [facility] Address [address] [place] [address] Care Team Providers Care Microsoft Dynamics Ax Consultant Name Role Phone Caprice Staples Unavailable [phone] Reason For Referral No Information Medications Medication SIG (Take, Route, Frequency, Duration) Notes Start Date End Date Status Topiramate 50MG 1 ORAL twice daily for [facility] 04/11/19 14 Active metFORMIN HCl 500MG 1 ORAL four times da negro for [facility] 04/11/2013 Active Luz 0.05MG 1 patch to skin Transdermal TWICE WEEKLY [facility] 04/04/2013 Active Vitamin D3 5,000 IU 1 ORAL daily for [facility] 04/11/2013 Active PriLOSEC OTC 20 MG 1 tablet Orally Once a day Active Atorvastatin Calcium 80 MG 1 tablet Oral ly Once a day Active Aspirin EC 81MG 1 ORAL daily for [facility] 04/11/2013 Active Abilify 2MG 1 ORAL daily for [facility] 04/11/2013 Active Restasis 0.05 % 1 into affected eye Ophthalmic Twice a day Active Luz 0.05 MG/24HR 1 patch to skin Transdermal TWICE WEEKLY for 90 days 07/22/2014 Active LORazepam 1MG 1 ORAL three times d aily for [facility] 04/11/2013 Active glipiZIDE 5MG ORAL three times greg ly for [facility] 04/11/2013 Active Cymbalta 60MG 1 ORAL daily for [facility] 04/11/2013 Active Problems Problem Type SNOMED Code ICD Code Onset Dates Problem Status W/U Status Risk Notes Problem Type II diabetes mellitus uncontrolled (828184985) Diabetes mellitus without mention of complication, type II or unspecified type, uncontrolled (250.02) Active confirmed Diag Problem Hyperlipidemia (77764350) Other and unspecified hyperlipidemia (272.4) Active confirmed Major Problem Menopausal symptom (30261384) Symptomatic menopausal or female climacteric states (627.2) Active confirmed Diag Problem Muscle pain (50352796) Unspecified myalgia and myositis (729.1) Active confirmed Major Problem Gynecological examination normal (098025660308281) Routine gynecological examination (V72.31) Active confirmed Major Plan Of Treatment Pending Test Test Name Order Date MAMMOGRAM, SCREENING 07/22/2014 Insurance Providers Payer Name Payer Address Payer Phone Subscriber Number Group Number Insured Name Patient Relationship to Insured Coverage Start Date Coverage End Date [employer] MED[employer]AGE [facility] [address] [place] [address] [id number] CHEVY WOLF Self - patient is the [...]
--- OUTSIDE RECORDS SUMMARY | 2024-05-27 08:03 | XMS_ITS | Encounter Summary ---
Author Organization [facility] Address [address] [address] Phone Care Team Providers Care Supervisor Clam Bed Name Role Phone Janak Greer MD Primary Care Provider [phone] Encounter Details Date Type Department Care Team (Late Contact Info) Description 05/20/2021 Documentation Only [facility] [address] [place] [address] Kelechi Moran MD [address] [place] [address] [place] [address] Social History Tobacco Use Types [...] Visit [facility] [address] [place] [address] Kelechi Moran MD [address] [place] [address] [place] [address] documented as of this encounter Visit Diagnoses Not on filedocumented in this encounter Care Teams Supervisor Clam Bed Relationship Specialty Start Date End Date Janak Greer MD [address] PCP - General 12/18/18 documented as of this encounter
--- OUTSIDE RECORDS SUMMARY | 2024-05-27 08:03 | XMS_ITS | Clinical Summary ---
Author Organization [facility] Address [address] [place] [address] Care Team Providers Care Strike Planning Applications Name Role Phone Janak Greer MD Primary Care Provider [phone] Allergies No known active allergies Medications Medication [...] 0 05/13/2019 Act kay Continuous Blood Gluc Dining Car Waiter/Waitress (FreeStyle Joseph 14 Day [facility]) PABLO 0 01/29/2019 Active Continuous Blood Gluc [...] Quadrivalent) 0.5 ML ROSE MARIE Flucelvax Quad [id number] (PF) 60 mcg (15 mcg x 4)/0.5 [...] ambreen lite 0 Active Continuous Blood Gluc Dining Car Waiter/Waitress (FreeStyle Joseph 14 Day [facility]) PABLO FreeStyle Joseph 14 Day [facility] 0 Active Lancets (freestyle) lancets FreeStyle Joseph [...] age to complete this topic Care Teams Strike Planning Applications Relationship Specialty Start Date End Date Janak Greer MD [address] [place] [address] PCP - General Internal Medicine 12/27/18
--- OUTSIDE RECORDS SUMMARY | 2024-05-27 08:03 | XMS_ITS | Encounter Summary ---
Author Organization [facility] Address [address] [address] Phone Care Team Providers Care Professional Shopper Name Role Phone Janak Greer MD Primary Care Provider [phone] Encounter Details Date Type Department Care Team (Late Contact Info) Description 05/17/2021 Documentation Only [facility] [address] [place] [address] Kelechi Moran MD [address] [place] [address] [place] [address] Social History Tobacco Use Types [...] Visit [facility] [address] [place] [address] Kelechi Moran MD [address] [place] [address] [place] [address] documented as of this encounter Visit Diagnoses Not on filedocumented in this encounter Care Teams Professional Shopper Relationship Specialty Start Date End Date Janak Greer MD [address] PCP - General 12/18/18 documented as of this encounter
--- OUTSIDE RECORDS SUMMARY | 2024-05-27 08:03 | XMS_ITS | Data Portability ---
Author Organization [place] - [facility], Allergy Address [address] [address] Care Team Providers Care Engineer Technician Name Role Phone LELAANUSHA Primary Care Provider [...] things have worsened since her CT scan. [email or web address] Not available 07/24/2023 12:39:59 08/10/2023 08/10/2023 The patient is doing well following functional endoscopic sinus surgery. Pathology consistent with sinonasal papilloma, inverted pattern. Instruction for saline sinus irrigation 2-3 times daily with intermittent use of saline nasal spray were given. The patient will follow up in 1-2 weeks as scheduled for reevaluation. [email or web address] Not available 08/10/2023 16:45:14 09/28/2023 09/28/2023 Patient [...] sinuses, w/o contrast 2023 [facility]EM [facility], [address] [place], [address], 4 14:09:46 Medication Orders doxycyclin e hyclate 100 mg capsule 2023 [id number] [phone] [place], [address], 4 11:38:28 fluticason e propionate 50 mcg/actuat ion nasal spray,susp ension 2023 024 [facility] #[id number], [phone] [place], [address], 4 12:08:06 Patient TargetsNo targets recorded. Patient [...] No observ ation record ed. [email or web address] Ents [address], [address], 07/24/2023 12:41:01 07/26/19 24 audio gram No observ ation record ed. BARCODE Not Available 2023 12:46:02 08/08/19 24 07/24/2023 CT, sinus es, w/o contr ast No observ ation record ed. [facility] [place] [facility] Of [address], [address], 08/08/2023 22:58:50 Result Notes None recorded. Problems Name Problem SNOMED Code Status Onset Date Resolution Date Notes Provider Name and Address Organization Details Recorded Time Benign paroxysma l positiona l vertigo 086518524 Active 2020 Benign paroxysma l vertigo, unspecifi ed ear; Note: Date Diagnosed : 04/14/2020 10:02 AM (H81.10) Not Available [facility] 4 02:26:19 Otorrhagi a of right ear 29852639685 88931 Active 2022 Otorrhagi a, right ear; Note: Date Diagnosed : 06/14/2022 2:51 PM (H92.21) Not Available [facility] 4 02:26:40 Disturban ce of salivary secretion 44166155 Active 2021 Xerostomi a; Note: Date Diagnosed : 09/30/2021 11:57 AM (K11.7) Not Available [facility] 4 02:26:26 Bilateral temporoma ndibular joint pain 44433359743 097036 Active 2022 Arthralgi a of bilateral temporoma ndibular joint; Note: Date Diagnosed : 05/10/2022 2:35 PM (M26.623) Arthral justin of bilateral temporoma ndibular joint; Note: Date Diagnosed : 04/14/2020 10:02 AM (M26.623) ; Start Date : Not Available [facility] 4 02:26:33 Gastroeso phageal reflux disease without esophagit is 886144196 Active 2021 Gastro-es ophageal reflux disease without esophagit is; Note: Date Diagnosed : 04/15/2021 10:11 AM (K21.9) Not Available [facility] 4 02:26:18 Sensorine ural hearing loss of bilateral ears 826226452 Active 2020 Sensorine ural hearing loss, bilateral ; Note: Date Diagnosed : 04/14/2020 10:03 AM (H90.3) Not Available [facility] 4 02:26:31 Allergic rhinitis caused by pollen 98254208 Active 2021 Allergic rhinitis due to pollen; Note: Date Diagnosed : 09/30/2021 11:57 AM (J30.1) Not Available [facility] 4 02:26:46 Bleeding from nose 062842872 Active 2022 Epistaxis ; Note: Date Diagnosed : 05/10/2022 2:35 PM (R04.0) Not Available [facility] 4 02:26:44 Chronic sinusitis 36173116 Active 2023 ELENITA KANG MD [address] [place] [address], [place], [address] , [facility] - [facility] 4 21:08:07 Deviated nasal septum 784901713 Active 2023 ELENITA KANG MD 100 [facility] [place], [place], [address] , [place] - [facility] 4 21:08:13 Abnormal auditory perceptio n 83314986 Active 2023 ELENITA KANG MD 100 [facility] [place] [address], [place], [address] , [place] - [facility] 4 12:02:38 Chronic left maxillary sinusitis 38758188206 104002 Active 2023 ELENITA KANG MD 100 [facility],[place] [address], [place], [address] , [place] - [facility] 4 14:04:57 Obstructi ve sleep apnea syndrome 06045277 Active 2023 ELENITA KANG MD 100 [facility],[place] [address], [place], [address] , [place] - [facility] 4 14:22:09 Chronic maxillary sinusitis 72813552 Active 2023 Chronic maxillary sinusitis ; Note: Date Diagnosed : 06/12/2023 11:15 AM (J32.0) Not Available [facility] 4 02:26:21 Acute maxillary sinusitis 46669560 Active 2023 Acute maxillary sinusitis , unspecifi ed; Note: Date Diagnosed : 04/25/2023 11:27 AM (J01.00) Not Available [facility] 4 02:26:24 Problem Notes None recorded. Procedures Surgical History Date Name Laterality Status Provider Name and Address Organization Details Recorded Time 01/08/20 24 NasalEndoscopy_DP completed MARVIN CHEUNG PA-C 100 [facility],[place] [address], [place], [address], [facility] 01/08/2024 12:45:15 09/28/19 24 JMSNasal/Sinus Endoscopy-PRIOR surgical cavities completed ELENITA MONTANO MD [address] [facility] [place] [address], [place], [address], [place] - [facility] [place] 09/28/2023 12:07:20 08/25/19 24 JMSNasal/Sinus Endoscopy-DEBRIDE MENT completed ELENITA MONTANO MD [address], [address], [facility] - [facility] [place] 08/25/2023 14:20:40 08/10/19 24 JMSNasal/Sinus Endoscopy-DEBRIDE MENT completed RAMYA BHATTI PA-C [address], [address], [facility] - [facility] [place] 08/10/2023 16:43:40 08/08/19 24 ENDOSCOPY, NASAL/SINUS W/ PARTIAL ETHMOIDECTOMY (SURG) completed Nacho Aldana [place] [facility] 08/11/2023 13:52:45 07/24/19 24 JMSNasal/Sinus Endoscopy completed ELENITA MONTAON MD [address] [place] [address], [address], [facility] - [facility] 07/24/2023 12:01:33 07/24/19 24 SRT & Tymps (05755 & 41374) completed Leah Donaldson [place] - [facility] 07/24/2023 12:28:03 Imaging Results Imaging Date Name Status LastModified by Organiz ation Details LastModified Time 07/24/2023 CT, sinuses, w/o contrast completed [facility] [place] Ents [address], [address], 07/24/2023 12:41:01 07/26/2023 audiogram completed BARCODE Information no t available 07/26/2023 12:46:02 07/24/2023 CT, sinuses, w/o contrast completed [facility] [place] [facility] [address], [address], 08/08/2023 22:58:50 Procedure Notes None recorded. Medical [...] mg tablet 09/30 completed Medicati on ID: [id number] B rand Name: furosemi de Send Method: E-Prescr ibed Sub s Allowed: subs OK Medic ationGen ericName : furosemi de Not Available Not Available Not Available Miralax 17 gram/dose oral powder 09/30 completed Medicati on ID: 304240 B rand Name: Miralax Send Method: E-Prescr [...] pack Take 06/11 completed Medicati on ID: [id number] P rescribe d By Name: Joleen Cruz MD Brand Name: Medrol (Jeff) Se nd Method: E-Prescr ibed Sub s Allowed: subs OK Rauli al Instruct ion: take as instruct ed Medic ationGen ericName : Medrol (Jeff) Not Available Not Available Not Available prednison e 20 mg tablet by mouth 2023 active Medicati on ID: 455163 B rand Name: predniso ne Send Method: [...] tended release 09/30 completed Medicati on ID: 540497 B rand Name: Tylenol Arthriti s Pain [...] mg tablet 09/30 completed Medicati on ID: 198539 B rand Name: oxcarbaz epine Se nd Method: E-Prescr ibed Sub s Allowed: subs OK Medic ationGen ericName : oxcarbaz epine Not Available Not Available Not Available acetamino phen 300 mg-codein e 30 mg tablet active Medicati on ID: 240853 B rand Name: acetamin ophen-co deine Se [...] mcg tablet 09/30 completed Medicati on ID: 350073 B rand Name: levothyr oxine Se nd Method: E-Prescr ibed Sub s Allowed: subs OK Medic ationGen ericName : levothyr oxine Not Available Not Available Not Available hydrocort isone 2.5 % topical cream with perineal applicato r 06/11 completed Medicati on ID: 110615 B rand Name: hydrocor tisone S end [...] 100 mg tablet active Medicati on ID: 771929 B rand Name: trazodon e Send Method: E-Prescr ibed Sub s Allowed: subs OK Medic ationGen ericName : trazodon e Medica tion ID: [id number] B rand Name: trazodon e Send Method: E-Prescr ibed Sub s Allowed: subs OK Medic ationGen ericName : trazodon e Not Available Not Available Not Available benzonata te 100 mg capsule TAKE 1 CAPSULE BY MOUTH THREE TIMES A DAY FOR 3 DAYS active Not Available Not Available No t Available levothyro xine 50 mcg tablet active Medicati on ID: 945988 B rand Name: levothyr oxine Se nd Method: E-Prescr ibed Sub s Allowed: subs OK Medic ationGen ericName : levothyr oxine Not Available Not Available Not Available cephalexi n 500 mg capsule TAKE 1 CAPSULE BY MOUTH FOUR TIMES A DAY active Not Available Not Available No t Available tacrolimu s 0.1 % topical ointment 06/11 completed Medicati on ID: 774354 B rand Name: tacrolim us Send Method: [...] mg tablet 06/11 completed Medicati on ID: 417421 B rand Name: hydroxyz ine HCl Send [...] nasal spray 09/30 completed Medicati on ID: 246133 B rand Name: azelasti ne Send Method: [...] unit) tablet 09/30 completed Medicati on ID: [id number] B rand Name: Vitamin D3 Send Method: E-Prescr ibed Sub s Allowed: subs OK Medic [facility] ericName : Vitamin D3 Not Available Not [...] as directed 2022 active Medicati on ID: 507627 D uration Value: 14 Brand Name: Ciprodex Send Method: E-Prescr ibed Sub s Allowed: subs OK [facility] Not Available Not Available Not Available escitalop brittany 5 mg tablet TAKE 1 TABLET BY MOUTH ONCE DAILY. TAKE TOGETHER WITH 20 MG FOR TOTAL OF 25 MG PER DAY active Not Available Not Available No t Available Cinnamon 500 mg capsule 09/30 completed Medicati on ID: [id number] B rand Name: Cinnamon Send Method: E-Prescr ibed Sub s Allowed: subs OK [facility] : Cinnamon Not Available [...] mcg tablet 09/30 completed Medicati on ID: 960293 B rand Name: Centrum Silver Women Se [...] ous pen injector active Medicati on ID: 269061 B rand Name: Иван Send Method: E-Prescr [...] Updated DateTime 08/10/2023 162.56 cm 43.9 kg/m2 902335.65 g Deborah Godfrey [place] - [facility] 08/10/2023 15:56:40 Date Recorded Body height Provider Name an d Address Organization Details Last Updated DateTime 08/25/2023 162.56 cm Jacob Bishop [place] - [facility] 08/25/2023 14:03:50 Date Recorded Body height Body mass index (BMI) Body weight Provider Name and Address Organization Details Last Updated DateTime 09/28/2023 162.56 cm 43.4 kg/m2 360020.87 g Jacob Bishop [place] - [facility] 09/28/2023 11:59:23 Date Recorded Body height Body mass index (BMI) Body weight Provider Name and Address Organization Details Last Updated DateTime 07/24/2023 162.56 cm 43.9 kg/m2 758355.65 g Jacob Bishop [place] - [facility] 07/24/2023 11:37:39 Social History None recorded. Functional Status None recorded. Mental Status None recorded. Family History Nothing Reported. Medical History Condition Response Anxiety Y Thyroid Problems Y Depression Y Diabetes Y High Cholesterol Y GERD/Reflux Y Sleep Disorder Y Hypertension Y Gynecological HistoryNo gynecological history recorded. Obstetrics History GPAL:G 0 P 0 0 0 0 Past Encounters Encounter ID Performer Location Encounter Start Date Encounter Closed Date Diagnosis/Indication Diagnosis SNOMED-CT Code Diagnosis ICD10 Code Diagnosis Note [id number] ELENITA KANG MD [facility] [address] [address] 07/24/2023 10:58:36 07/24/2023 13:19:59 Chronic sinusitis 67698243 J32.9 J32.8 Because of increased symptoms on [...] handout was given Deviated nasal septum 12 1083172 J34.2 Abnormal a uditory perception 84377783 H93.293 Tymp and SRT reviewedA speech awareness threshold test, tympanomet ry, and distortion product otoacousti c emission test were performed. Results are as follows: Speech Awareness/ Computer Systems Software Architect Test: Right Ear:{{with in normal limits 0 [...] seal}} [id number] MIKE MONTOYA MD [facility] [address] [address] 08/10/2023 15:42:46 08/10/2023 16:16:37 Chronic sinusitis 75473738 J32.8 Postoperative visit 1836 56153 Z48.89 [id number] ELENITA KANG MD [facility] 100 [facility] [place] [address] 08/25/2023 13:59:35 08/25/2023 14:34:07 Chronic left maxillary sinusitis 1208311978 2781268 J32.0 No residual infection. Debridemen t performed. Suggest gentle irrigation to avoid ear symptoms. Burning mouth has improved. She can take some probiotics . Follow-up 4 weeks. Abnormal a uditory perception 39742493 H93.293 No fluid Obstructiv e sleep apnea syndrome 02117068 G47.33 Resume CPAP [id number] ELENITA KANG MD [facility] 100 [facility] [place] [address] 09/28/2023 11:30:17 09/28/2023 12:14:30 Chronic left maxillary sinusitis 3257145650 5419393 J32.0 No residual infection. Debridemen t performed. Suggest gentle irrigation to avoid ear symptoms. Burning mouth has improved. She can take some probiotics . Follow-up 4 weeks. Deviated nasal septum 12 4160695 J34.2 [id number] GARRY LINK MD [facility] 100 [place] [address] 01/08/2024 10:59:57 01/08/2024 11:42:28 Deviated nasal septum 510726223 J34.2 right Chronic le ft maxillary sinusitis 0187590493 3227303 J32.0 Health Concerns Section Related Observation LastModified by Organization Detai ls LastModified Time None Recorded Concern Status LastModified by Organization Details LastModified Time None Recorded Advance Directives Directive None Recorded Payers Encounter Date Sequence Insurance Name Policy Number Policy Azul Covered Member ID Azul Member ID Guarantor Name 07/24/2023 2 [place] [facility] Esperanza Mónica Dianne [id number] Esperanza M Dianne 07/24/2023 1 [place] [address] [employer]per[employer]am[employer] Sales Dianne [id number] Esperanza M Dianne 08/10/2023 2 [place] [facility] Esperanza M Dianne [id number] Esperanza M Dianne 08/10/2023 1 [place] [address] Esperanza M M Dianne [id number] Esperanza M Dianne 08/25/2023 2 [place] [facility] Esperanza Mónica Dianne [id number] Esperanza M Dianne 08/25/2023 1 [place] [address] Esperanza Mónica M Dianne [id number] Esperanza M Dianne 09/28/2023 2 [place] [facility] Esperanza M Dianne [id number] Esperanza M Dianne 09/28/2023 1 [place] [address] Esperanza Sales M Dianne [id number] Esperanza M Dianne 01/08/2024 2 [place] [facility] Esperanza M Dianne [id number] Esperanza M Dianne 01/08/2024 1 [place] [address] Esperanza Sales M Dianne [id number] Esperanza M Dianne Notes Date Note Type Note Provider Name and Address Organization Details Recorded Time 07/24/2023 text/html No change with prednisone or abx. Still has facial pressure and ear fullness L > R prior -ypwp-orp with chronic left maxillary sinusitis. Symptoms started [...] endoscopic sinus surgery. ELENITA MONTANO MD 100 [facility],[address], [address], [facility] - [facility] 07/24/2023 12:45:01 08/10/2023 text/html 62-year-old fema le presents status post left maxillary antrostomy with sigifredo bullosa resection on 08/08/[address] Montano. She is doing well postoperatively. Currently on amoxicillin. MIKE MONTOYA MD 100 [facility],[address], [address], [facility] - [facility] 08/10/2023 17:13:02 08/25/2023 text/html Patient seen following endoscopic surgery she is August 07. She still has some left facial pressure, ear fullness and nasal discharge. No HL. Smell and taste ok. Been irrigating twice daily and using saline solution 3-4 times per day. Finished abx but got burning. No thrush. Holding CPAP ELENITA MONTANO MD 100 [facility], [place], [address], [facility] - [facility] 08/25/2023 14:22:37 09/28/2023 text/html Patient with chronic sinusitis status post left-sided surgery. She has a known rightward septal deviation and had mild sinus thickening on that side. We elected to proceed with left-sided surgery only. She notes significant improvement and just a little bit of congestion in the morning. ELENITA MONTANO MD 100 [facility],[place] [address], [place], [address], [place] [facility] 09/28/2023 12:08:38 01/08/2024 text/html 63 year [...] offer some relief. GARRY LINK MD 100 [facility], [place], [address], [place] - [facility] 01/08/2024 21:13:08 OBGyn Episode No OBEpisode recorded.
--- NOTE | 2024-05-27 11:24 | A.OFFVIS_ITS ---
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 Allergies No Known Allergies Allergy (Verified 05/27/24 11:24) Medication List - Last Reconciled 05/27/24 by Gibran Palm MD acetaminophen 650 mg (2 x 325 mg) PO Q6H PRN 30 days albuterol sulfate 90 mcg/actuation (Ventolin HFA) 1 inh inhalation Q4H PRN apixaban (Eliquis) 5 mg PO BID aripiprazole 5 mg PO DAILY atorvastatin 80 mg PO BEDTIME carvedilol 6.25 mg PO BID carvedilol 3.125 mg PO BID clonazepam mg PO escitalopram oxalate 25 mg PO DAILY escitalopram oxalate 5 mg PO DAILY famotidine 20 mg PO BID fluticasone propion-salmeterol 250-50 mcg/dose (Wixela Inhub) 1 ea inhalation BID fluticasone propionate 50 mcg/actuation 1 spray intranasal DAILY insulin lispro (Humalog KwikPen U-200 Insulin) 20 units subcut TID levothyroxine 25 mcg PO DAILY@0600 linaclotide (Linzess) 145 mcg PO DAILY PRN mirabegron ER (Myrbetriq) 50 mg PO DAILY omeprazole 20 mg PO DAILY@0630 oxcarbazepine 600 mg PO BID tirzepatide (Mounjaro) mg subcut trazodone 150 mg PO BEDTIME walker Folding front wheeled walker HPI 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: Details: Start time: 11.17am, End time: 12.17pm ?I spent 55 minutes speaking with the patient on the phone plus an additional 5 minutes reviewing and updating records for a total of 60 minutes HPI Comments Details: Previous weight loss efforts: WW, Nutrisystem, self diets (30lbs), Mounjaro 12.5mg/wk: for 1 year lost 30lbs) Wakes up: 4.30am, Sleeps: 10pm Breakfast: 8am (boiled eggs and fruits) Lunch: 1pm yogurt occasionally Dinner: 5pm (salad, meat, vegetables, starch) Snacks: occasionally M&M before dinner, 8pm (Cheesecake, muffin, 5 cookies, ice cream) Exercise: none Beverages: Coffee (4 cups/day with 2% milk), tea: (hot or iced tea: 1 cup/d plain), soda: diet Coke, juice: none, ETOH: none PFSH Medical History (Updated 05/27/24 @ 11:58 by Gibran Palm MD) Insomnia Stress incontinence History of venous thromboembolism Insulin dependent type 2 diabetes mellitus Anxiety Bipolar 1 disorder Arthritis of right knee Fatty liver Asthma Hypothyroid DVT (deep venous thrombosis) Fibromyalgia HTN (hypertension) Chronic renal insufficiency Type 2 diabetes mellitus Bipolar disorder Depression Morbid obesity Chronic pulmonary embolism Sleep apnea GERD (gastroesophageal reflux disease) Elevated cholesterol Surgical History (Updated 05/27/24 @ 11:42 by Gibran Palm MD) History of right knee joint replacement History of esophagogastroduodenoscopy (EGD) H/O colonoscopy Hx of inguinal hernia repair Hx of sinus surgery Hx of shoulder surgery Hx of umbilical hernia repair Hx of arthroscopy of right knee History of bladder suspension procedure Hx of tonsillectomy H/O: hysterectomy History of ankle surgery Family History (Updated 05/16/24 @ 14:59 by LARISSA Dickson) Father Heart failure Diabetes HTN (hypertension) Maternal Aunt Diabetes Paternal Grandmother Diabetes Mother HTN (hypertension) Social History Household Members: Family Household Members Other:: takes care of parents Housing: House Are you a primary youth care worker to a significant other at home: No Do you presently have visiting nurse or other home services: No Patient Tobacco Use Status: Former Tobacco user Tobacco use type: Cigarette Years Smoked: 30 service: No Telehealth Telehealth Telehealth Platform: Telephone Location of provider rendering services: practice address Location of patient: address on file Patient Identification confirmed using: Name, : Yes Telehealth method: voice only Patient verbally consented to treatment: Yes Patient verbally consented to billing insurance company: Yes Patient informed of any privacy concerns related to visit: Yes Minutes spent on Phone/Video with Pt.: 60 Assessment & Plan Assessment & Plan (1) Morbid obesity: Code(s): E66.01 - Morbid (severe) obesity due to excess calories Category: Medical Plan: 1.? Plan for lap sleeve gastrectomy. If diaphragmatic or ventral hernias are present at time of surgery, these will be repaired laparoscopically as well. I emphasized the importance of close follow-up, adherence to instructions and good communication. The surgery does not replace the need to change your lifestlyle which is the cause of the obesity problem. The surgery provides the motivation to try again to change your lifestyle, it reduces the appetite and make the transition to a better lifestyle easier and doubles the amount of weight you would lose compared to doing the lifestyle change without the surgery. You will need to be on a liquid diet with protein shakes for 2 weeks before surgery to maximize weight loss and boost your nutritional status to recover better from surgery and also for the first two weeks after surgery to let the stomach heal before we introduce other foods. After the first 2 weeks we will introduce protein bars and soft foods like scrambled eggs, cottage cheese and yogurt and after the 6th week will introduce meat, fish and cooked vegetables in small amounts. Over time you should be able to eat everything in small amounts. Side effects like nausea, vomiting, heartburn or abdominal pain are not common in the practice unless you are not following in the practice. This operation requires lifetime commitment to following in our practice and communication with me. You will much less weight and experience side effects if you don?t communicate or not following in the practice. Complications are rare and in our practice is about 1/10 of the national average. However, you can develop bleeding that may require transfusion (hasn?t happened for year in the practice), you may from complications (we did not have any deaths in the practice) and infections. Infections are usually a result of breakdown in communication or not understanding or following directions correctly. They are difficult to treat, they can happen during the first 6 weeks, they may require to be in the hospital for weeks or even months, not being able to eat by mouth and you may have drains and surgeries to try and correct the issue. Other risks and complications include possible conversion to an open procedure, leaks, small bowel obstruction, blood clots, cardiac, or pulmonary complications, as chcf complications such as ulcers, insufficient weight loss and vitamin deficiencies. 2. You will receive a link of our software qi to generate an individualized nutritional and exercise plan specific for you. Please send me a screenshot of the plans you will generate Meal to include lean meat (beef, fish, pork, turkey, chicken), or korean yogurt, or egg whites, or beans with a salad with olive oil and fruits (berries, pears, apples, kiwi). Avoid salt, breads, potatoes, rice, pasta, desserts. ?3. If you choose shakes, each shake would be drunk slowly, like coffee in a period of 2 hours. ?4. If you choose bars, cut each bar in 4 pieces and eat each piece in 30min ?to make each bar last 2 hours. ?5. I emphasized the importance of measuring accurately the food portion and measure it when serving the food in plate ?6. The meal portions include a specific number of forks of meat and salad. You always eat the meat portion but you can replace up to half of salad/vegetables portion with rice, potatoes or pasta, or a fruit ?if you like. The less you do it the better weight loss will be. ?7. One full-size fork is what it can be scooped on the fork without falling aside and not what can be bit with the fork. Use regular forks like those you find in a typical restaurant. ?8.? Please buy the body composition scale we discussed and send me weight measurements as soon as possible and then once a week. Always include your diet and exercise plan. 9. The best choice would be to purchase a stationary bike at home that can track calories. You can create and exercise plan with the [employer] qi. ?10. Goal is to lose at least 1.5-2lbs per week ?11. Goal to lose 10% of your weight before surgery, which is about 24lbs. Ultimate weight goal: 233lbs before surgery 12. Please follow the diet plan exactly without any change. If you don't like something about the plan or you feel hungry you need to communicate with me so I can help you revise the plan. You should not change the plan yourself. 13. To be scheduled for EGD due to the history of sleeve gastrectomy and anemia. Patient needs to avoid use of NSAIDs and aspirin for 1 week prior to EGD. You must be on liquids only the day before your endoscopy. Risks of perforation and bleeding was discussed with the patient. This will be an outpatient procedure with IV sedation. Orders: Orders Lipid Panel Today E03.9 - Hypothyroidism, unspecified, E11.9 - Type 2 diabetes mellitus without complications, E66.01 - Morbid (severe) obesity due to excess calories, G47.30 - Sleep apnea, unspecified, J45.909 - Unspecified asthma, uncomplicated, K21.9 - Gastro-esophageal reflux disease without esophagitis, Z79.4 - longterm (current) use of insulin IRON PROFILE Today E03.9 - Hypothyroidism, unspecified, E11.9 - Type 2 diabetes mellitus without complications, E66.01 - Morbid (severe) obesity due to excess calories, G47.30 - Sleep apnea, unspecified, J45.909 - Unspecified asthma, uncomplicated, K21.9 - Gastro-esophageal reflux disease without esophagitis, Z79.4 - longterm (current) use of insulin Vitamin B1 Today E03.9 - Hypothyroidism, unspecified, E11.9 - Type 2 diabetes mellitus without complications, E66.01 - Morbid (severe) obesity due to excess calories, G47.30 - Sleep apnea, unspecified, J45.909 - Unspecified asthma, uncomplicated, K21.9 - Gastro-esophageal reflux disease without esophagitis, Z79.4 - longterm (current) use of insulin Vitamin A Today E03.9 - Hypothyroidism, unspecified, E11.9 - Type 2 diabetes mellitus without complications, E66.01 - Morbid (severe) obesity due to excess calories, G47.30 - Sleep apnea, unspecified, J45.909 - Unspecified asthma, uncomplicated, K21.9 - Gastro-esophageal reflux disease without esophagitis, Z79.4 - buttermaker helper (current) use of insulin Ferritin Today E03.9 - Hypothyroidism, unspecified, E11.9 - Type 2 diabetes mellitus without complications, E66.01 - Morbid (severe) obesity due to excess calories, G47.30 - Sleep apnea, unspecified, J45.909 - Unspecified asthma, uncomplicated, K21.9 - Gastro-esophageal reflux disease without esophagitis, Z79.4 - longterm (current) use of insulin Vitamin D 25-OH Total Today E03.9 - Hypothyroidism, unspecified, E11.9 - Type 2 diabetes mellitus without complications, E66.01 - Morbid (severe) obesity due to excess calories, G47.30 - Sleep apnea, unspecified, J45.909 - Unspecified asthma, uncomplicated, K21.9 - Gastro-esophageal reflux disease without esophagitis, Z79.4 - longterm (current) use of insulin US abdomen comp w elastography Today E03.9 - Hypothyroidism, unspecified, E11.9 - Type 2 diabetes mellitus without complications, E66.01 - Morbid (severe) obesity due to excess calories, G47.30 - Sleep apnea, unspecified, J45.909 - Unspecified asthma, uncomplicated, K21.9 - Gastro-esophageal reflux disease without esophagitis, Z79.4 - buttermaker helper (current) use of insulin ECG 12 lead EKG Today E03.9 - Hypothyroidism, unspecified, E11.9 - Type 2 diabetes mellitus without complications, E66.01 - Morbid (severe) obesity due to excess calories, G47.30 - Sleep apnea, unspecified, J45.909 - Unspecified asthma, uncomplicated, K21.9 - Gastro-esophageal reflux disease without esophagitis, Z79.4 - longterm (current) use of insulin Insulin Today E03.9 - Hypothyroidism, unspecified, E11.9 - Type 2 diabetes mellitus without complications, E66.01 - Morbid (severe) obesity due to excess c alories, G47.30 - Sleep apnea, unspecified, J45.909 - Unspecified asthma, uncomplicated, K21.9 - Gastro-esophageal reflux disease without esophagitis, Z79.4 - longterm (current) use of insulin Hemoglobin A1c Today E03.9 - Hypothyroidism, unspecified, E11.9 - Type 2 diabetes mellitus without complications, E66.01 - Morbid (severe) obesity due to excess calories, G47.30 - Sleep apnea, unspecified, J45.909 - Unspecified asthma, uncomplicated, K21.9 - Gastro-esophageal reflux disease without esophagitis, Z79.4 - longterm (current) use of insulin H Pylori Breath Test Today E03.9 - Hypothyroidism, unspecified, E11.9 - Type 2 diabetes mellitus without complications, E66.01 - Morbid (severe) obesity due to excess calories, G47.30 - Sleep apnea, unspecified, J45.909 - Unspecified asthma, uncomplicated, K21.9 - Gastro-esophageal reflux disease without esophagitis, Z79.4 - longterm (current) use of insulin Complete Blood Count Auto Diff Today E03.9 - Hypothyroidism, unspecified, E11.9 - Type 2 diabetes mellitus without complications, E66.01 - Morbid (severe) obesity due to excess calories, G47.30 - Sleep apnea, unspecified, J45.909 - Unspecified asthma, uncomplicated, K21.9 - Gastro-esophageal reflux disease without esophagitis, Z79.4 - longterm (current) use of insulin Comprehensive Met. Panel Today E03.9 - Hypothyroidism, unspecified, E11.9 - Type 2 diabetes mellitus without complications, E66.01 - Morbid (severe) obesity due to excess calories, G47.30 - Sleep apnea, unspecified, J45.909 - Unspecified asthma, uncomplicated, K21.9 - Gastro-esophageal reflux disease without esophagitis, Z79.4 - longterm (current) use of insulin Vitamin B12 and Folate Today E03.9 - Hypothyroidism, unspecified, E11.9 - Type 2 diabetes mellitus without complications, E66.01 - Morbid (severe) obesity due to excess calories, G47.30 - Sleep apnea, unspecified, J45.909 - Unspecified asthma, uncomplicated, K21.9 - Gastro-esophageal reflux disease without esophagitis, Z79.4 - buttermaker helper (current) use of insulin Zinc Today E03.9 - Hypothyroidism, unspecified, E11.9 - Type 2 diabetes mellitus without complications, E66.01 - Morbid (severe) obesity due to excess calories, G47.30 - Sleep apnea, unspecified, J45.909 - Unspecified asthma, uncomplicated, K21.9 - Gastro-esophageal reflux disease without esophagitis, Z79.4 - longterm (current) use of insulin C Reactive Protein Today E03.9 - Hypothyroidism, unspecified, E11.9 - Type 2 diabetes mellitus without complications, E66.01 - Morbid (severe) obesity due to excess calories, G47.30 - Sleep apnea, unspecified, J45.909 - Unspecified asthma, uncomplicated, K21.9 - Gastro-esophageal reflux disease without esophagitis, Z79.4 - buttermaker helper (current) use of insulin TSH reflex Free T4 Today E03.9 - Hypothyroidism, unspecified, E11.9 - Type 2 diabetes mellitus without complications, E66.01 - Morbid (severe) obesity due to excess calories, G47.30 - Sleep apnea, unspecified, J45.909 - Unspecified asthma, uncomplicated, K21.9 - Gastro-esophageal reflux disease without esophagitis, Z79.4 - buttermaker helper (current) use of insulin XR chest 2V Today E03.9 - Hypothyroidism, unspecified, E11.9 - Type 2 diabetes mellitus without complications, E66.01 - Morbid (severe) obesity due to excess calories, G47.30 - Sleep apnea, unspecified, J45.909 - Unspecified asthma, uncomplicated, K21.9 - Gastro-esophageal reflux disease without esophagitis, Z79.4 - longterm (current) use of insulin FL upper GI w air Today E03.9 - Hypothyroidism, unspecified, E11.9 - Type 2 diabetes mellitus without complications, E66.01 - Morbid (severe) obesity due to excess calories, G47.30 - Sleep apnea, unspecified, J45.909 - Unspecified asthma, uncomplicated, K21.9 - Gastro-esophageal reflux disease without esophagitis, Z79.4 - buttermaker helper (current) use of insulin Referrals Behavioral Health Referral E03.9 - Hypothyroidism, unspecified, E11.9 - Type 2 diabetes mellitus without complications, E66.01 - Morbid (severe) obesity due to excess calories, G47.30 - Sleep apnea, unspecified, J45.909 - Unspecified asthma, uncomplicated, K21.9 - Gastro-esophageal reflux disease without esophagitis, Z79.4 - buttermaker helper (current) use of insulin Nutrition/Dietitian Referral E03.9 - Hypothyroidism, unspecified, E11.9 - Type 2 diabetes mellitus without complications, E66.01 - Morbid (severe) obesity due to excess calories, G47.30 - Sleep apnea, unspecified, J45.909 - Unspecified asthma, uncomplicated, K21.9 - Gastro-esophageal reflux disease without esophagitis, Z79.4 - longterm (current) use of insulin
[2024-05-27 11:48] VITALS: BMI 40.7
== END 2024-05-27 12:19 | disposition home or self-care (01) ==
LOC: HO.HBS 07:58
PROVIDERS: PCP Internal Medicine; Visit Provider Surgery
DX: E66.813 Obesity, class 3 (principal); Z68.41 Body mass index [BMI] 40.0-44.9, adult
CPT/HCPCS: 99205

== ENCOUNTER 2024-06-07 08:52 | Outpatient (AMB) | payer MEDICARE, MEDICAID, SELFPAY ==
--- OUTSIDE RECORDS SUMMARY | 2024-06-07 08:58 | XMS_ITS | Encounter Summary ---
Author Organization [facility] Address [address] [address] Phone Care Team Providers Care Atomic Fuel Assembler Name Role Phone Janak Greer MD Primary Care Provider [phone] Encounter Details Date Type Department Care Team (Late Contact Info) Description 05/27/2021 Documentation Only [facility] [address] [place] [address] Kelechi Moran MD [address] [place] [address] [place] [address] Social History Tobacco Use Types [...] Visit [facility] [address] [place] [address] Kelechi Moran MD [address] [place] [address] [place] [address] documented as of this encounter Visit Diagnoses Not on filedocumented in this encounter Care Teams Atomic Fuel Assembler Relationship Specialty Start Date End Date Janak Greer MD [address] PCP - General 12/18/18 documented as of this encounter
--- OUTSIDE RECORDS SUMMARY | 2024-06-07 08:58 | XMS_ITS | Encounter Summary ---
Author Organization [facility] Address [address] [address] Phone Care Team Providers Care Helmet Binder Name Role Phone Janak Greer MD Primary Care Provider [phone] Encounter Details Date Type Department Care Team (Late Contact Info) Description 05/20/2021 Documentation Only [facility] [address] [place] [address] Kelechi Moran MD [address] [place] [address] [place] [address] Social History Tobacco Use Types [...] Visit [facility] [address] [place] [address] Kelechi Moran MD [address] [place] [address] [place] [address] documented as of this encounter Visit Diagnoses Not on filedocumented in this encounter Care Teams Helmet Binder Relationship Specialty Start Date End Date Janak Greer MD [address] PCP - General 12/18/18 documented as of this encounter
--- OUTSIDE RECORDS SUMMARY | 2024-06-07 08:58 | XMS_ITS | Encounter Summary ---
Author Organization [facility] Address [address] [place] [address] Care Team Providers Care Digital Asset Coordinator Name Role Phone Janak Greer MD Primary Care Provider Reason for Visit * Reason Comments Med Change Request Encounter Details Date Type Department Care Team ([facility] st Contact Info) Description 10/04/2022 Refill [facility] [address] [address] Leslie Howell PA-C [address] [place] [address] Visit for wound check Social History Tobacco Use Types Packs/Day Years Used Date Smoking Tobacco: Never Smokeless Tobacco: Never Comments Unknown Sex and Gender Information Value Date Recorded Sex Assigned at Female 10/12/2022 6:28 PM EDT Legal Sex Female 5:12 PM EDT Gender Identity Female 08/08/2022 9:13 PM EDT Sexual Orientation Heterosexual (straight) 08/08 9:13 PM EDT documented as of this encounter Plan of Treatment Not on file documented as of this encounter Visit Diagnoses Diagnosis Visit for wound check documented in this encounter Care Teams Digital Asset Coordinator Relationship Specialty Start Date End Date Janak Greer MD [address] [place] [address] PCP - General Internal Medicine 08/09/22 documented as of this encounter
--- OUTSIDE RECORDS SUMMARY | 2024-06-07 08:58 | XMS_ITS | Encounter Summary ---
Author Organization [facility] Address [address] [address] Phone Care Team Providers Care Straightedge Worker Name Role Phone Janak Greer MD Primary Care Provider [phone] Reason for Visit * Reason Comments New Med Request Encounter Details Date Type Department Care Team (Late Contact Info) Description 04/12/2022 Refill [facility] [address] [place] [address] Kelechi Moran MD [address] [place] [address] [place] [address] Social History Tobacco Use Types [...] Visit [facility] [address] [place] [address] Kelechi Moran MD [address] [place] [address] [place] [address] documented as of this encounter Visit Diagnoses Not on filedocumented in this encounter Care Teams Straightedge Worker Relationship Specialty Start Date End Date Janak Greer MD [address] PCP - General 12/18/18 documented as of this encounter
--- OUTSIDE RECORDS SUMMARY | 2024-06-07 08:58 | XMS_ITS | Clinical Summary ---
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
--- OUTSIDE RECORDS SUMMARY | 2024-06-07 08:58 | XMS_ITS | Encounter Summary ---
Author Organization [facility] Address [address] [place] [address] Care Team Providers Care Jet Mechanic Name Role Phone Janak Greer MD Primary Care Provider [phone] Encounter Details Date Type Department Care Team (Late st Contact Info) Description 09/27/2022 Scanned Document [facility] [address] [address] Rommel Whyte MD [address] [place] [phone] Social History Tobacco Use Types Packs/Day Years [...] on filedocumented in this encounter Care Teams Jet Mechanic Relationship Specialty Start Date End Date Janak Greer MD [address] [place] [address] PCP - General Internal Medicine 08/09/22 documented as of this encounter
--- OUTSIDE RECORDS SUMMARY | 2024-06-07 08:58 | XMS_ITS | Encounter Summary ---
Author Organization [facility] Address [address] [place] [address] Care Team Providers Care Research Worker Encyclopedia Name Role Phone Janak Greer MD Primary Care Provider [phone] Encounter Details Date Type Department Care Team (Late st Contact Info) Description 09/30/2022 Refill [facility] [address] [address] Rommel Whyte MD [address] [place] [address] [place] [address] Chronic pain of left ankle Social History [...] ankle documented in this encounter Care Teams Research Worker Encyclopedia Relationship Specialty Start Date End Date Janak Greer MD [address] [place] [address] PCP - General Internal Medicine 08/09/22 documented as of this encounter
--- OUTSIDE RECORDS SUMMARY | 2024-06-07 08:58 | XMS_ITS | Encounter Summary ---
Author Organization [facility] Address [address] [place] [address] Care Team Providers Care Endoscopy Registered Nurse Name Role Phone Janak Greer MD Primary Care Provider [phone] Encounter Details Date Type Department Care Team (Late st Contact Info) Description 10/07/2022 Telephone [facility] [address] [place] [phone] Rommel Whyte MD [address] [place] [phone] Social History Tobacco Use Types Packs/Day Years [...] on filedocumented in this encounter Care Teams Endoscopy Registered Nurse Relationship Specialty Start Date End Date Janak Greer MD [address] [place] [address] PCP - General Internal Medicine 08/09/22 documented as of this encounter
--- OUTSIDE RECORDS SUMMARY | 2024-06-07 08:58 | XMS_ITS | Encounter Summary ---
Author Organization [facility] Address [address] [place] [address] Care Team Providers Care Warehouse Record Clerk Name Role Phone Janak Greer MD Primary Care Provider [phone] Encounter Details Date Type Department Care Team (Late st Contact Info) Description 06/06/2023 Scanned Document [address] [phone] Provider, Generic Social History Tobacco Use Types [...] on filedocumented in this encounter Care Teams Warehouse Record Clerk Relationship Specialty Start Date End Date Janak Greer MD [address] [place] [address] PCP - General Internal Medicine 08/09/22 documented as of this encounter
--- OUTSIDE RECORDS SUMMARY | 2024-06-07 08:58 | XMS_ITS | Encounter Summary ---
Author Organization [facility] Address [address] [address] Phone Care Team Providers Care Cattle Dealer Name Role Phone Janak Greer MD Primary Care Provider [phone] Encounter Details Date Type Department Care Team (Late Contact Info) Description 05/17/2021 Documentation Only [facility] [address] [place] [address] Kelechi Moran MD [address] [place] [address] [place] [address] Social History Tobacco Use Types [...] Visit [facility] [address] [place] [address] Kelechi Moran MD [address] [place] [address] [place] [address] documented as of this encounter Visit Diagnoses Not on filedocumented in this encounter Care Teams Cattle Dealer Relationship Specialty Start Date End Date Janak Greer MD [address] PCP - General 12/18/18 documented as of this encounter
--- OUTSIDE RECORDS SUMMARY | 2024-06-07 08:58 | XMS_ITS | Patient Health Record ---
Author Organization [facility] Address [address] [place] [address] Care Team Providers Care Industrial Ecology Technician Name Role Phone Caprice Staples Unavailable [phone] Reason For Referral No Information Medications Medication SIG (Take, Route, Frequency, Duration) Notes Start Date End Date Status Topiramate 50MG 1 ORAL twice daily for [facility] 04/11/19 14 Active metFORMIN HCl 500MG 1 ORAL four times da negro for [facility] 04/11/2013 Active Luz 0.05MG 1 patch to skin Transdermal TWICE WEEKLY [facility] 04/04/2013 Active Vitamin D3 5,000 IU 1 ORAL daily for [facility] 04/11/2013 Active PriLOSEC OTC 20 MG 1 tablet Orally Once a day Active Atorvastatin Calcium 80 MG 1 tablet Oral ly Once a day Active Aspirin EC 81MG 1 ORAL daily for [facility] 04/11/2013 Active Abilify 2MG 1 ORAL daily for [facility] 04/11/2013 Active Restasis 0.05 % 1 into affected eye Ophthalmic Twice a day Active Luz 0.05 MG/24HR 1 patch to skin Transdermal TWICE WEEKLY for 90 days 07/22/2014 Active LORazepam 1MG 1 ORAL three times d aily for [facility] 04/11/2013 Active glipiZIDE 5MG ORAL three times greg ly for [facility] 04/11/2013 Active Cymbalta 60MG 1 ORAL daily for [facility] 04/11/2013 Active Problems Problem Type SNOMED Code ICD Code Onset Dates Problem Status W/U Status Risk Notes Problem Type II diabetes mellitus uncontrolled (539657102) Diabetes mellitus without mention of complication, type II or unspecified type, uncontrolled (250.02) Active confirmed Diag Problem Hyperlipidemia (62320491) Other and unspecified hyperlipidemia (272.4) Active confirmed Major Problem Menopausal symptom (73153724) Symptomatic menopausal or female climacteric states (627.2) Active confirmed Diag Problem Muscle pain (21389369) Unspecified myalgia and myositis (729.1) Active confirmed Major Problem Gynecological examination normal (062086337473735) Routine gynecological examination (V72.31) Active confirmed Major Plan Of Treatment Pending Test Test Name Order Date MAMMOGRAM, SCREENING 07/22/2014 Insurance Providers Payer Name Payer Address Payer Phone Subscriber Number Group Number Insured Name Patient Relationship to Insured Coverage Start Date Coverage End Date [employer] MED[employer]AGE [facility] [address] [place] [address] [id number] CHEVY WOLF Self - patient is the [...]
--- OUTSIDE RECORDS SUMMARY | 2024-06-07 08:58 | XMS_ITS | Encounter Summary ---
Author Organization [facility] Address [address] [place] [address] Care Team Providers Care Grain Weigher Name Role Phone Janak Greer MD Primary Care Provider [phone] Encounter Details Date Type Department Care Team (Late st Contact Info) Description 09/28/2022 [facility]phone [facility] [address] [place] [phone] Rommel Whyte MD [address] [place] [phone] Social History Tobacco Use Types Packs/Day Years [...] on filedocumented in this encounter Care Teams Grain Weigher Relationship Specialty Start Date End Date Janak Grere MD [address] [place] [address] PCP - General Internal Medicine 08/09/22 documented as of this encounter
--- OUTSIDE RECORDS SUMMARY | 2024-06-07 08:58 | XMS_ITS | Clinical Summary ---
Author Organization [facility] Address [address] [place] [address] Phone Care Team Providers Care Brass Pickler Name Role Phone Janak Greer MD Primary Care Provider [phone] Allergies No known active allergies Medications apixaban [...] skin every 7 (seven) days. 4 Active Surgical History Surgery Date Site/Laterality Comments HERNIA [...] 02/25/2020 DX:Depression Diabetes mellitus type 2, uncomplicated ([facility] V24, [facility] V28) 02/25/2020 DX:Diabetes mellitus type 2, uncomplicated (HCC) Bipolar disorder ([facility] V2 4, [facility] V28) 02/25/2020 DX:Bipolar disorder (HCC) SHAWN (obstructive sleep apnea) 02/25/2020 DX :SHAWN (obstructive sleep apnea) Severe obesity with body mas s index (BMI) of 35.0 to 39.9 with comorbidity (CMS/HCC V24, CMS/[facility] V28) 02/25/2020 DX:Severe obesity with body mass index (BMI) of 35.0 to 39.9 with comorbidity ([facility]) History of pulmonary embolus (PE) 02/25/2020 DX:History of pulmonary embolus (PE) Dyspnea 02/25/2020 DX:Dyspnea Blood clotting tendency ([facility] V24) DX:Blood clotting tendency (HCC) Diabetes mellitus ([facility] V 24, [facility] V28) DX:Diabetes mellitus (HCC) High blood pressure [...] of colonic polyps from Last 3 Months or Most Recently Relevant to Health Maintenance Results * COLONOSCOPY Anesthesia - MAC; [facility] ENDOSCOPY (03/04/2024 8:56 AM EST) Anatomical [...] previously scheduled. Narrative 03/04/2024 8:56 AM EST [facility] GI Patient Name: Esperanza Dean Procedure [...] Procedure Code(s): ? --- Professional --- ? 40934, Colonoscopy, flexible; diagnostic, including ? collection of specimen(s) by brushing or washing, when ? performed (separate procedure) Diagnosis Code(s): ? --- Professional --- ? Z12.11, Encounter for screening for malignant neoplasm ? of colon CPT copyright 2020 [employer]. All rights reserved. The codes documented in this report are preliminary and upon engineer process review may be revised to meet current compliance requirements. Yovanny Harvey MD 03/04/2024 8:56:08 AM This report has been signed electronically.Yovanny Harvey MD Number of Addenda: 0 Note Initiated On: 03/04/2024 8:33 AM Scope In: Scope Out: ? Endoscopy Department at [facility] - [address] [place] [address], ? [place] [address] Procedure Note Yovanny Harvey MD - 03/04/2024 [facility] GI Patient Name: Esperanza Dean Procedure [...] retroflexion views. Procedure Code(s): --- Professional --- 24010, Colonoscopy, flexible; diagnostic, including collection of specimen(s) by brushing or washing,when performed (separate procedure) Diagnosis Code(s): --- Professional --- Z12.11, Encounter for screening for malignantneoplasm of colon CPT copyright 2020 [employer]. All rights reserved. The codes documented in this report are preliminary and upon engineer process reviewmay be revised to meet current compliance requirements. Yovanny Harvey MD 03/04/2024 8:56:08 AM This report has been signed electronically.Yovanny Harvey MD Number of Addenda: 0 Note Initiated On: 03/04/2024 8:33 AM Scope In: Scope Out: Endoscopy Department at [facility] - [address] [place] [phone] IMPRESSION: - Diverticulosis in the sigmoid colon. - Non-bleeding internal hemorrhoids. - The examination was otherwise normal on directand retroflexion views. - No specimens collected. Recommendation: - Discharge patient to home. - High fiber diet. - Continue present medications. - Resume Eliquis (apixaban) at prior dose today. - Repeat colonoscopy in 10 years forsurveillance. - Return to GI office as previously scheduled. us Yovanny Harvey MD GI~PROCEDURE ORDERABLES Final Result from Last 3 Months or Most Recently Relevant to Health Maintenance Insurance [employer] [place] [place] Care Teams Brass Pickler Relationship Specialty Start Date End Date Janak Greer MD PCP - General Internal Medicine 05/26/08
--- OUTSIDE RECORDS SUMMARY | 2024-06-07 08:59 | XMS_ITS | Data Portability ---
Author Organization [place] [facility] Franca Grullon [place] Address [address] [place] [address] Care Team Providers Care Financial Services Education Consultant Name Role Phone ANUSHA VOGEL Primary Care Provider [phone] ANUSHA VOGEL Primary Care Provider Assessment Encounter Date Assessment Date Assessment LastModified by Organization Details LastModified Time 03/16/2023 03/16/2023 This is a pleasant 62-year-old female with degenerative joint disease of the right knee she has had multiple conservative management treatments including aspiration and cortisone injection with waning effect. At this point she wishes to proceed forward with right knee replacement surgery however she understands that her BMI is over 40. Most of her weight is truncal in nature please see images within the examination her right knee is rather thin bony landmarks are palpable. I will have her see Dr. Reyes who will ultimately decide if she would be a good candidate for right total knee arthroplasty. In the meantime she will continue with [id number] pain medication. We will set up the appointment accordingly. She agrees with this plan. Patient was seen and evaluated by Teresa Shine PA-C in indirect conjuction with Documenting Provider: Washington Reyes MD . He/She agrees with history, physical examination, tests/diagnostic imaging, and treatment plan. Additional treatment plan discussed with the patient (only initiated if in boldface font) otherwise not applicable. Treatment may include the following; - Provider focused nonsteroidal anti-inflammatory regimen (discussed were the pros, cons, benefits and risks as well as any black box warnings) in patients over 60 years old they should be very cautious in taking these medications due to potential decreased kidney function and or elevated blood pressure. - Analgesic pain medication for pain suppression (discussed were the pros, cons, benefits and risks as well as any black box warnings) - The use of topical pain relieving medication were discussed - The use of ice to decrease inflammation and pain - The use of assistive ambulatory devices for ambulation and fall prevention - Formal specific guided physical therapy program I reviewed my findings at length with the patient today. ? ? ?We discussed the nature and etiology of this problem along with current treatment options. We discussed the expected course and outcomes and what to expect. We also discussed risks and benefits. ? ? ? All of their questions were answered today, and there was exhibited understanding and comprehension of all that was discussed. Time Spent: 10 minutes were spent reviewing previous imaging and charting. ? ? ?10 minutes were spent obtaining patient history. ? ? ?5 minutes were spent on physical exam. ? ? ?5? ? ?minutes were spent explaining diagnosis and assessment. Today's documentation was made using voice recognition software. This note may contain grammatical errors secondary to the software. [email or web address] Not available 03/16/2023 12:30:54 03/22/2023 03/22/2023 INTERIM HISTORY: The patient is 4 weeks status post steroid injection sixth extensor compartment left wrist for the ECU tenosynovitis. This was her third injection for the same condition. The injection has not been helpful this time. EXAMINATION OF THE LEFT WRIST: Skin is intact. Wrist flexion/extension measures full. Forearm rotation is full. The alignment is satisfactory. There is no swelling. There are no masses. There is no tenderness over the first extensor compartment, and the Nasima test is negative. There is no evidence for an intersection syndrome. There is no tenderness along the distal aspect of the flexor carpi radialis or the flexor carpi ulnaris. There is tenderness at the extensor carpi ulnaris. There is no crepitus or instability of the ECU throughout the sixth extensor compartment. ECU Synergy test positive. There is no tenderness at the radial styloid or the distal radius. There is no tenderness or instability at the distal radioulnar joint. There is no tenderness at the ulnar styloid, and the fovea sign is negative. There is no tenderness at the ulnocarpal joint. There is no tenderness at the STT joint. There is no tenderness at the scaphoid. There is no tenderness or instability at the scapholunate joint. There is no tenderness over the lunate. There is no tenderness or instability at the lunotriquetral joint. There is no tenderness or instability at the midcarpal joints. There is no tenderness at the pisiform or the pisotriquetral joint. There is no tenderness at the scaphoid tubercle or the hook of the hamate. There is no shoulder deformity and no tenderness at the CMC joint of the thumb. There is no tenderness or instability at the 2nd - 5th CMC joints. Neurovascular status is intact. DISCUSSION: At this time, with the patient receiving her third injection for the tenosynovitis ECU/sixth extensor compartment left wrist and not obtaining any relief with the most recent injection, she is a candidate for surgical release sixth extensor compartment left wrist. However, before proceeding with surgery, she is referred for an MRI to confirm the diagnosis and to ensure there is no other pathology at the ulnar aspect of the wrist that needs to be addressed. Not available 03/22/2023 11:43:58 03/24/2023 03/24/2023 HPI : ?Thank you for the pleasure of requesting a consultation on this patient. Patient comes in complaining of right knee pain. Patient has been followed by Teresa Shine. She has undergone treatments including cortisone and gel injections. They are no longer providing significant relief. This patient is experiencing right knee pain for a period lasting greater than the last three months, which is severe (VAS score greater than or equal to 6 on a 0-10 scale) in intensity and the restriction of function (appropriate for a patient of this age) are intolerable. The pain substantially limits activities of daily living. In particular, walking tolerance and ability to stair climb is reduced. Conservative management such as non-steroidal anti-inflammatory medications available by prescription, physician directed therapy, ice and/or heat and activity modification have been minimally effective or deemed insufficient by the patient for a period lasting greater than 3-6 months in duration. Assistive devices and external support were not deemed by the patient to be helpful in improving their function. The patient is unable to tolerate further conservative measures, including physical therapy, due to the severity of arthritis and level of pain. Review of systems is negative for rapidly progressive neurological disorder, chest pain, shortness of breath, fevers, chills, or any signs of active or persistent local or systemic infection. Physical Exam : Patient is morbidly obese, in no acute distress, with appropriate mood and affect. The patient is oriented to time, place, and person. Respirations are even and unlabored. Gait evaluation does reveal a limp. There is no inguinal adenopathy. Examination of the contralateral knee shows normal range of motion, strength, no tenderness, and intact skin. The affected limb is well-perfused, without skin lesions, shows a grossly normal motor and sensory examination. Right knee motion is significantly reduced and does cause significant pain. The knee moves from 5-120 degrees. The knee is stable within that [id number] to AP and ML stress. The alignment of the knee is neutral. Muscle strength is normal. Pedal pulses are palpable. Hip examination, including flexion and internal rotation, was negative in that groin pain was not produced. Assessment/Plan : The patient is an appropriate candidate for consideration of right total knee replacement, pending reducing her modifiable risk factor of morbid obesity. We had in-depth discussion regarding surgical intervention, including the risk benefits alternatives. We also discussed the increased risk for patients with morbid obesity. Our goal is for her to lose weight prior to surgical intervention of total knee replacement. We are going to have her work on weight loss over the next 2 months, she will come back and see me in 2 months with weight check at that time. Not available 03/24/2023 11:00:17 04/19/2023 04/19/2023 TheINTERIM HISTORY: Returns after completing the MRI to evaluate the sixth extensor compartment left wrist. Symptoms persist, but she is able to live and work with the intermittent discomfort. EXAMINATION OF THE LEFT WRIST: Skin is intact. Wrist flexion/extension measures full. Forearm rotation is full. The alignment is satisfactory. There is no swelling. There are no masses. There is no tenderness over the first extensor compartment, and the Nasima test is negative. There is no evidence for an intersection syndrome. There is no tenderness along the distal aspect of the flexor carpi radialis or the flexor carpi ulnaris. There is minimal tenderness at the extensor carpi ulnaris. There is no crepitus or instability of the ECU throughout the sixth extensor compartment. ECU Synergy test weakly positive. There is no tenderness at the radial styloid or the distal radius. There is no tenderness or instability at the distal radioulnar joint. There is no tenderness at the ulnar styloid, and the fovea sign is negative. There is no tenderness at the ulnocarpal joint. There is no tenderness at the STT joint. There is no tenderness at the scaphoid. There is no tenderness or instability at the scapholunate joint. There is no tenderness over the lunate. There is no tenderness or instability at the lunotriquetral joint. There is no tenderness or instability at the midcarpal joints. There is no tenderness at the pisiform or the pisotriquetral joint. There is no tenderness at the scaphoid tubercle or the hook of the hamate. There is no shoulder deformity and no tenderness at the CMC joint of the thumb. There is no tenderness or instability at the 2nd - 5th CMC joints. Neurovascular status is intact. MRI: Left wrist performed at [facility] April 05, 2023 reveals equivocal subluxation ECU. DISCUSSION: The results of the MRI are discussed with the patient. Examination does not reveal any appreciable instability at the ECU. The radiologist thought the subluxation of the ECU was secondary to position of the forearm which should not occur if there is no instability of the ECU. Stability should not be related to position of the forearm. The patient informed there may be a mild degree of subluxation of the ECU accounting for her chronic symptoms. No evidence of any tenosynovitis. Additional treatment options are discussed. The patient understands if symptoms are bothersome, she would require exploration and reconstruction of the ECU to avoid the subluxation. The procedure, benefits, risks and alternatives are explained to the patient in detail. All of the patient's questions are answered. For now, she will observe her symptoms. Symptoms are tolerable, and she is able to work and live with her symptoms. If symptoms become more bothersome, she will return to the office for reevaluation and to proceed with additional treatment. Not available 04/19/2023 12:23:26 05/26/2023 05/26/2023 HPI : ? patient comes in for follow-up for her right knee pain. She has known right knee arthritis. We discussed losing weight. She is lost 6 pounds since her last visit. She is confident she can lose some additional weight prior to surgery. This patient is experiencing right knee pain for a period lasting greater than the last three months, which is severe (VAS score greater than or equal to 6 on a 0-10 scale) in intensity and the restriction of function (appropriate for a patient of this age) are intolerable. The pain substantially limits activities of daily living. In particular, walking tolerance and ability to stair climb is reduced. Conservative management such as non-steroidal anti-inflammatory medications available by prescription, physician directed therapy, ice and/or heat and activity modification have been minimally effective or deemed insufficient by the patient for a period lasting greater than 3-6 months in duration. Assistive devices and external support were not deemed by the patient to be helpful in improving their function. The patient is unable to tolerate further conservative measures, including physical therapy, due to the severity of arthritis and level of pain. Review of systems is negative for rapidly progressive neurological disorder, chest pain, shortness of breath, fevers, chills, or any signs of active or persistent local or systemic infection. Physical Exam : Patient is morbidly obese, in no acute distress, with appropriate mood and affect. The patient is oriented to time, place, and person. Respirations are even and unlabored. Gait evaluation does reveal a limp. There is no inguinal adenopathy. Examination of the contralateral knee shows normal range of motion, strength, no tenderness, and intact skin. The affected limb is well-perfused, without skin lesions, shows a grossly normal motor and sensory examination. Right knee motion is significantly reduced and does cause significant pain. The knee moves from 5-120 degrees. The knee is stable within that [id number] to AP and ML stress. The alignment of the knee is neutral. Muscle strength is normal. Pedal pulses are palpable. Hip examination, including flexion and internal rotation, was negative in that groin pain was not produced. Assessment/Plan : The patient is an appropriate candidate for consideration of right total knee replacement. An extensive discussion was conducted of the natural history of the disease and the variety of surgical and non-surgical treatment options available to the patient. A risk/benefit analysis was discussed with the patient reviewing the advantages and disadvantages of surgical intervention at this time. A full explanation was given of the nature and the purpose of the procedure and anesthesia, its benefits, possible alternative methods of diagnosis of treatment, the risks involved, the possibility of complications, the foreseeable consequences of the procedure and the possible results of the non-treatment. No guarantee or assurance was made as to the results that may be obtained. Specifically, the risks were identified to include, but are not limited, to the following: Infection, phlebitis, pulmonary embolism, , paralysis, dislocation, pain, stiffness, instability, limp, weakness, breakage, leg-length inequality, uncontrolled bleeding, nerve injury, blood vessel injury, pressure sores, anesthetic risks, delayed healing of wound and bone, and wear and loosening. Additional risks of robotic knee replacement were discussed (if used) including but not limited to pin site infection, draining, longer incision, longer OR time, and fracture near the pin sites. Further discussion was undertaken with the patient about the details of surgical preparation, treatment and postoperative rehabilitation including medical clearance, autotransfusion, the hospital course and the postoperative rehabilitation involved. As a part of routine preoperative counseling, if the patient is a smoker, the patient recognizes the increased risk of complications in patients who utilize tobacco products. The patient has also been counseled regarding the elevated risk of surgical complications in patients with an elevated BMI. The patient demonstrates understanding of the increased risk in such patients. The patient was encouraged to participate in physical activity and diet modification under the direction of their primary care physician. We will plan on proceeding with right total knee arthroplasty using the Nadia total knee replacement system. However, it is possible during the preoperative planning process or due to intraoperative findings that a different implant system may be utilized in order to optimize the patient's outcome. We had a discussion regarding implant and bearing options. We had a detailed discussion of the advantages and limitations of the specific implant designs, materials and bearing surfaces. All questions were answered to the patient's satisfaction, and the patient was asked to call the office with any further concerns. All in all, I feel that this patient is a good candidate for surgical reconstruction.? We did discuss that we want her to lose some additional weight prior to surgery. Once she has lost some additional weight she will call us for scheduling. Plan for right total knee replacement, robotic assisted, Plan for right total knee replacement, robotic assisted, [place] joint replacement [place]. Not available 05/26/2023 10:08:43 Plan of Treatment Reminders Order Date Submit Date Provider Last Modified By Organization Details Last Modified Time Details Appointments None recorded. Lab None recorded. Referral None recorded. Procedures None recorded. Surgeries total knee arthroplast y (SURG) 2023 024 [email or web address] Not available 10:19:12 Imaging XR, knee, 4 or more view 2023 024 [email or web address] [facility], [address], [address], [place], [address], 11:11:12 MRI, wrist, w/o contrast - Evaluate ECU/sixth extensor compartment for tenosynovit is.Please call patient to schedule and hand carry CD 2023 024 [email or web address] [facility], [address] [place], [address], 09:42:37 Medication Orders None recorded. Patient TargetsNo targets recorded. Patient Instructions Encounter Date Encounter Id Patient Instructions Last Modified By Organization Details Last Modified Time 03/24/2023 [id number] AP, lateral, Melchor, and patellar view radiographs of the right knee taken today demonstrate right knee degenerative joint disease with joint space narrowing, osteophyte formation, and subchondral sclerosis. there is ekox-uw-ihfo articulation in the medial compartment. Not available 03/24/2023 11:00:11 Reason for Referral None Reported. Results Created Date Observation Date Name Description Value Unit Range Abnormal Flag Note LastModifiedBy Organization Detail LastModifiedTime 04/18/19 24 04/05/2023 MRI, wrist , w/o contr ast No observ ation record ed. [email or web address] [facility] [address] [place], [address], 04/18/2023 15:46:48 04/27/19 MRI, wrist , w/o contr ast No observ ation record ed. [email or web address] [facility] [address] [place], [address], 04/27/2023 08:42:31 Result Notes None recorded. 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 704748431 Active 2022 Dallin Lima MD [address], [facility] [place], [address], [place] [facility] 3 17:40:16 Arthritis of first carpometaca rpal joint of left hand 1030269672786 103 Active 2022 Dallin Lima MD [address], [facility], [address], [place] [facility] 3 17:40:30 Instability of joint of right knee 6317637686815 102 Active 2022 TERESA SHINE PA-C [address], [place], [address], [place] [facility] 3 09:18:55 Effusion of joint of right knee 1816737902322 04 Active 2022 TERESA SHINE PA-C [address], [place], [address], [place] [facility], [facility] 3 10:05:35 Osteoarthri tis of right knee joint 8183202916798 00 Active 2022 TERESA SHINE PA-C [address], [place], [address], [place] [facility], [facility] 3 12:46:54 Problem Notes None recorded. Procedures Surgical History Date Name Laterality Status Provider Name and Address Organization Details Recorded Time 02/22/19 24 AONE tendon sheath cortisone injection completed Dallin Lima MD [address], [place], [address], [place] [facility] 02/22/2023 10:43:39 12/30/19 23 Knee Joint/Bursa Asp & Inj completed TERESA SHINE PA-C [address], [place], [address], [place] [facility] P 12/29/2022 10:03:04 12/21/19 23 Knee Joint/Bursa Asp & Inj completed TERESA SHINE PA-C [address], [place], [address], [place] [facility] P 12/20/2022 13:29:41 09/16/19 23 Knee Joint/Bursa Asp & Inj completed TERESA SHINE PA-C [address], [place], [address], [place] [facility] 09/15/2022 07:52:52 08/25/19 23 AONE tendon sheath cortisone injection completed Dallin Lima MD [address], [place], [address], [place] [facility] 08/24/2022 12:40:55 06/21/19 23 Knee Joint/Bursa Asp & Inj completed TERESA SHINE PA-C [address] [facility],[address], [place], [address], [place] [facility] 06/19/2022 23:48:21 hysterectomy completed [facility] [place] [facility] P 12/29/2022 08:44:02 procedure on urinary bladder completed [facility] [place] [facility] P 12/29/2022 08:44:53 procedure on shoulder completed [facility] [place] [facility] 12/29/2022 08:45:08 hernia repair completed [facility] [place] [facility] 12/29/2022 08:45:14 Imaging Results Imaging Date Name Status LastModified by Organiz ation Details LastModified Time 04/05/2023 MRI, wrist, w/o contrast completed [email or web address] [facility] [address] [place], [address], 04/18/2023 15:46:48 04/27/2023 MRI, wrist, w/o contrast completed [email or web address] [facility] [address] [place], [address], 04/27/2023 08:42:31 Procedure Notes None recorded. Medical Equipment None Reported. Allergies No known drug allergies Medications Name Sig Start Date Stop Date Status Note LastModified by Organization Details LastModified Time diclofenac 3% / baclofen 2% / gabapentin 6% / bupivacaine hcl 1% APPLY 1-3 GRAMS TO THE AFFECTED AREA 3-4 TIMES DAILY (LEFT ANKLE) 12/20 completed Not Available Not Available Not Available furosemide 40 mg tablet TAKE 1 TABLET BY MOUTH EVERY DAY 09/15 completed Not Available Not Available Not Available silver sulfadiazin e 1 % topical cream APPLY TO AFFECTED AREA TWICE A DAY 12/20 completed Not Available Not Available Not Available lidocaine HCl 10 mg/mL (1 %) injection solution Take 5 mL by injection route. 02/22 completed Not Available Not Available Not Available atorvastati n 80 mg tablet TAKE 1 TABLET BY MOUTH EVERY DAY active Not Available Not Available No t Available carvedilol 6.25 mg tablet TAKE 1 TABLET BY MOUTH TWICE A DAY active Not Available Not Available No t Available doxycycline hyclate 100 mg capsule TAKE 1 CAPSULE BY MOUTH TWICE A DAY FOR 10 DAYS 12/20 completed Not Available Not Available Not Available famotidine 40 mg tablet Take 1 tablet every day by oral route. active Not Available Not Available No t Available prednisone 20 mg tablet TAKE 2 TABLETS BY MOUTH DAILY X 3 DAYS 09/15 completed Not Available Not Available Not Available clonazepam 0.5 mg tablet 12/29 completed Not Available Not Available Not Available clonazepam 1 mg tablet TAKE 1 TABLET BY ORAL ROUTE 2 TIMES PER DAY (MAY TAKE THIRD DOSE FOR SEVERE ANXIETY). active Not Available Not Available No t Available clobetasol 0.05 % topical cream 02/22 completed Not Available Not Available Not Available warfarin 2.5 mg tablet active Not Available Not Available Not Available acetaminoph en 300 mg-codeine 30 mg tablet 12/29 completed Not Available Not Available Not Available sulfamethox azole 800 mg-trimetho prim 160 mg tablet TAKE 1 TABLET BY MOUTH TWICE A DAY FOR 5 DAYS 09/15 completed Not Available Not Available Not Available carvedilol 3.125 mg tablet TAKE 1 TABLET BY MOUTH 2 TIMES A DAY WITH 6.25 MG DOSE active Not Available Not Available No t Available Kenalog 40 mg/mL suspension for injection Take 1.5 mL by injection route. 12/20 completed Not Available Not Available Not Available hydrocortis one 2.5 % topical cream with perineal applicator active Not Available Not Available N ot Available amoxicillin 875 mg tablet TAKE 1 TABLET BY MOUTH TWICE A DAY FOR 7 DAYS active Not Available Not Available No t Available famotidine 20 mg tablet active Not Available Not Available Not Available trazodone 100 mg tablet TAKE 1 TABLET BY MOUTH EVERYDAY AT BEDTIME 12/20 completed Not Available Not Available Not Available Kenalog 10 mg/mL suspension for injection Take 2 mL by injection route. 03/22 completed Not Available Not Available Not Available benzonatate 100 mg capsule TAKE 1 CAPSULE BY MOUTH THREE TIMES A DAY FOR 3 DAYS active Not Available Not Available No t Available levothyroxi ne 50 mcg tablet active Not Available Not Available Not Available cephalexin 500 mg capsule TAKE 1 CAPSULE BY MOUTH FOUR TIMES A DAY 12/20 completed Not Available Not Available Not Available erythromyci n 5 mg/gram (0.5 %) eye ointment APPLY 1 APPLICATI ON INTO THE LOWER EYELID OF AFFECTED EYE 4 TIMES A DAY FOR 7 DAYS 06/20 completed Not Available Not Available Not Available tacrolimus 0.1 % topical ointment APPLY TWICE A DAY TO AREAS OF DERMATITI S ON LEGS. REPEAT NEEDED 02/22 completed Not Available Not Available Not Available trazodone 150 mg tablet TAKE 1 TABLET BY MOUTH AT BEDTIME NEEDED FOR INSOMNIA active Not Available Not Available No t Available ferrous sulfate 325 mg (65 mg iron) tablet active Not Available Not Available Not Available clotrimazol e-betametha sone 1 %-0.05 % topical cream APPLY 1 APPLICATI ON EXTERNALL Y TWICE A DAY active Not Available Not Available No t Available omeprazole 20 mg capsule,del ayed release TAKE 1 CAPSULE BY MOUTH EVERY DAY IN THE MORNING active Not Available Not Available No t Available oxcarbazepi ne 600 mg tablet TAKE 1 TABLET BY MOUTH TWICE A DAY active Not Available Not Available No t Available hydrocortis one 2.5 % topical cream MIX WITH CICLOPIRO X CREAM AND APPLY TWICE DAILY TO AFFECTED SKIN FOLDS UNTIL IMPROVED. active Not Available Not Available No t Available hydroxyzine HCl 25 mg tablet TAKE 1 TABLET BY MOUTH TWICE A DAY NEEDED FOR ANXIETY 12/20 completed Not Available Not Available Not Available codeine 10 mg-guaifene sin 100 mg/5 mL oral liquid TAKE 10 ML BY MOUTH EVERY 4 HOURS FOR 5 DAYS NEEDED active Not Available Not Available No t Available azelastine 137 mcg (0.1 %) nasal spray SPRAY 1 SPRAY INTO EACH NOSTRIL TWICE A DAY FOR 30 DAYS 09/15 completed Not Available Not Available Not Available methylpredn isolone 4 mg tablets in a dose pack TAKE 6 TABS BY MOUTH FOR 1 DAY THEN DECREASE BY TAKE 1 TABLET EVERY DAY UNTIL FINISHED active Not Available Not Available No t Available clotrimazol e 1 % topical cream APPLY 1 APPLICATI ON EXTERNALL Y TWICE A DAY active Not Available Not Available No t Available doxycycline hyclate 100 mg tablet TAKE 1 TABLET BY MOUTH TWICE A DAY FOR 10 DAYS active Not Available Not Available No t Available amoxicillin 875 mg-potassiu m clavulanate 125 mg tablet TAKE 1 TABLET BY MOUTH EVERY 12 HOURS FOR 10 DAYS 06/20 completed Not Available Not Available Not Available Ventolin HFA 90 mcg/actuati on aerosol inhaler INHALE 2 PUFFS BY MOUTH EVERY 4 HOURS NEEDED active Not Available Not Available No t Available buspirone 15 mg tablet TAKE 1 TABLET BY MOUTH TWICE A DAY active Not Available Not Available No t Available oxycodone 5 mg tablet TAKE 1 TO 2 TABLETS BY MOUTH EVERY 4 HOURS NEEDED FOR MODERATE OR SEVERE PAIN MAX DAILY: 60 MG 12/20 completed Not Available Not Available Not Available hydroxyzine pamoate 25 mg capsule TAKE 1 CAPSULE BY MOUTH 3 TIMES A DAY NEEDED active Not Available Not Available No t Available enoxaparin 120 mg/0.8 mL subcutaneou s syringe INJECT 1 PEN EVERY 12 HOURS DIRECTED 12/20 completed Not Available Not Available Not Available escitalopra m 20 mg tablet TAKE 1 TABLET BY MOUTH EVERY DAY active Not Available Not Available No t Available Restasis 0.05 % eye drops in a dropperette INSTILL DROP INTO BOTH EYES 2 TIMES A DAY. active Not Available Not Available No t Available lidocaine (PF) 10 mg/mL (1 %) injection solution Take 10 mL by injection route. 02/22 completed Not Available Not Available Not Available BD Ultra-Fine Short Pen Needle 31 gauge x 06/28 active Not Available Not Available Not Available GaviLyte-G 236 gram-22.74 gram-6.74 gram-5.86 gram oral solution TAKE 4000 ML DIRECTED 02/22 completed Not Available Not Available Not Available lidocaine (PF) 100 mg/5 mL (2 %) injection syringe Take 1 mL by injection route. 03/22 completed Not Available Not Available Not Available Myrbetriq 50 mg tablet,exte nded release TAKE 1 TABLET BY MOUTH EVERY DAY active Not Available Not Available No t Available Victoza 2-Jeff 0.6 mg/0.1 mL (18 mg/3 mL) subcutaneou s pen injector active Not Available Not Available Not Available Eliquis 5 mg tablet TAKE 1 TABLET BY MOUTH TWICE A DAY active Not Available Not Available No t Available Wixela Inhub 250 mcg-50 mcg/dose powder for inhalation INHALE 1 PUFF BY MOUTH TWICE A DAY active Not Available Not Available No t Available BinaxNOW COVID-19 Ag Self Test kit USE ACCORDING TO MANUFACTU RER'S DIRECTION S 06/20 completed Not Available Not Available Not Available Mounjaro 5 mg/0.5 mL subcutaneou s pen injector INJECT 5 MG SUBCUTANE OUS INJECTION EVERY WEEK,ROTA TE INJECTION SITES active Not Available Not Available No t Available Mounjaro 2.5 mg/0.5 mL subcutaneou s pen injector 02/22 completed Not Available Not Available Not Available Vitals Date Recorded Body height Body mass index (BMI) Body weight Provider Name and Address Organization Details Last Updated DateTime 03/24/2023 162.56 cm 45.3 kg/m2 982175.[address] [place] [facility] 03/24/2023 10:44:14 Date Recorded Body height Body mass index (BMI) Body weight Provider Name and Address Organization Details Last Updated DateTime 05/26/2023 162.56 cm 44.3 kg/m2 575291.[address] [place] [facility] 05/26/2023 09:56:04 Social History Question Answer Notes LastModified by Organizat ion Details LastModified Time Tobacco Smoking Status Former Smoker Beatriz gottlieb, [place] - [facility] 12/29/2022 08:46:38 What Is Your Level Of Alcohol Consumption? None Information not available 12/29/2022 When Did You Quit Smoking? 1-5yearssin yuri wilcox Information not available 12/29/2022 Do You Use Any Illicit Or Recreational Drugs? No Information not available 12/29/2022 Do You Or Have You Ever Used Any Other Forms Of Tobacco Or Nicotine? No Information not available 12/29/2022 Sex: Unknown Functional Status None recorded. Mental Status None recorded. Family History Relationship Description Onset Age of this Age Resolved Age Notes LastModified by Organization Details LastModified Time Mother Arthritis Not available 12/29/2022 08:42:10 Mother Family history of malignant neoplasm Not available 2022 08:42:18 Mother Hypercholest erolemia Not available 2022 08:42:55 Mother Hypertensive disorder Not available 2022 08:43:15 Father Arthritis Not available 12/29/2022 08:42:10 Father Heart disease Not available 2022 08:42:31 Father Hypercholest erolemia Not available 2022 08:42:55 Father Hypertensive disorder Not available 2022 08:43:15 Sister Arthritis Not available 12/29/2022 08:42:10 Sister Hypercholest erolemia Not available 2022 08:42:55 Sister Hypertensive disorder Not available 2022 08:43:15 Brother Hypercholest erolemia Not available 2022 08:42:55 Notes:rheumatologic disease- father Medical History Condition Response Coronary Artery Disease N Gout N Hyperthyroidism N Blood Transfusion N MRSA N Emphysema N Depression N COPD N Hypothyroidism Y Pacemaker N Vascular Disease N Gastrointestinal Disease N Anxiety Disorder N Autoimmune disease N Arthritis N Cancer N Stroke N High Cholesterol N Neurologic Disorder N Liver Disease N Organ Transplant N Arrhythmia N Rheumatoid Arthritis N Fibromyalgia N Kidney Disease Y Allergies/Hayfever N Adverse Reaction to Anesthesia N Thyroid Problems N Anemia N Brain Injury N Heart Attack ([place]) N Osteopenia N Diabetes Y Bleeding Disorder Y Seizures/Epilepsy N AIDS/HIV N Congestive Heart Failure (CHF) N Asthma N Amputation N Reflux/GERD N Sleep Apnea N Hepatitis N Aneurysm N Heart Disease N Pulmonary Embolism N Hypertension N Osteoporosis Y Gynecological HistoryNo gynecological history recorded. Obstetrics History GPAL:G 0 P 0 0 0 0 Past Encounters Encounter ID Performer Location Encounter Start Date Encounter Closed Date Diagnosis/Indication Diagnosis SNOMED-CT Code Diagnosis ICD10 Code Diagnosis Note [id number] MD BRANDEN Curran [address] [address] 06/08/2022 11:44:59 06/08/2022 12:08:20 Extensor tenosynovitis of wrist 146972866 M65.839 [id number] [facility] [address] [place] [address] 06/20/2022 11:03:15 06/20/2022 11:48:20 Pain of right knee joint 6429487967 70316 M25.561 Osteoarthr itis of right knee joint 7119629512 84492 M17.11 [id number] MD BRANDEN Curran [address] [address] 06/29/2022 10:05:38 06/29/2022 11:00:28 Pain of left wrist 0644478074 12446 M25.532 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 6124382668 08470 G56.02 [id number] MD BRANDEN Curran [address] [address] 08/03/2022 10:36:47 08/03/2022 11:31:14 Extensor tenosynovitis of wrist 867822633 M65.839 Arthritis of first carpometacarpal joint of left hand 1670562932 234619 M13.842 [id number] MD BRANDEN Curran [address] [address] 08/24/2022 11:23:15 08/24/2022 11:57:21 Extensor tenosynovitis of wrist 435324613 M65.839 Left ECU [id number] MD BRANDEN Santiagosingh crump 299 [facility] [address] [facility] [place] [address] 09/15/2022 10:34:27 09/15/2022 11:35:33 Osteoarthritis of right knee joint 9114687171 09488 M17.11 [id number] MD BRANDEN Santiagosingh [address] [address] 12/20/2022 09:13:41 12/20/2022 10:01:14 Osteoarthritis of right knee joint 5452785520 52180 M17.11 [id number] [facility] [address] [address] 12/29/2022 08:17:47 12/29/2022 09:01:45 Osteoarthritis of right knee joint 6446245215 90482 M17.11 Instabilit y of joint of right knee 7175216639 856962 M25.361 Effusion o f joint of right knee 8720112912 76443 M25.461 Right knee joint effusion [id number] MD BRANDEN Santiagosingh [address] [address] 01/03/2023 14:25:07 01/03/2023 15:04:47 Instability of joint of right knee 6042782778 902469 M25.361 Nonbillabl e visit [id number] [facility] [address] [address] 01/11/2023 10:36:20 01/11/2023 11:21:09 Instability of joint of right knee 5322709623 181604 M25.361 Osteoarthr itis of right knee joint 3689922997 23942 M17.11 [id number] MD BRANDEN Curran [address] [address] 02/22/2023 09:50:34 02/22/2023 10:26:40 Extensor tenosynovitis of wrist 907778949 M65.839 Left ECU [id number] MD BRANDEN Santiago [address] [address] 03/16/2023 10:50:05 03/16/2023 11:32:54 Osteoarthritis of right knee joint 2416828658 73010 M17.11 [id number] Malia Mehta [facility] [address] [address] 03/22/2023 11:22:58 03/22/2023 11:37:45 Synovitis and tenosynovitis of joint of wrist 6519214895 M67.834 Left ECU [id number] MD BRAND[facility] 299 [facility] [address] [place] [address] 03/24/2023 10:25:15 03/24/2023 10:59:45 Pain of right knee joint 4812997566 78327 M25.561 Osteoarthr itis of right knee joint 8188975824 04157 M17.11 [id number] MD BRANDEN [facility] [address] [address] 04/19/2023 11:05:25 04/19/2023 11:34:04 Extensor tenosynovitis of wrist 910594305 M65.839 Left ECU [id number] MD BRANDEN Santiago [facility] 299 [facility] [address] [place] [address] 05/26/2023 09:16:00 05/26/2023 10:12:04 Osteoarthritis of right knee joint 3601057775 81382 M17.11 Arthritis of knee 298766 002 M13.869 Health Concerns Section Related Observation LastModified by Organization Detai ls LastModified Time None Recorded Concern Status LastModified by Organization Details LastModified Time None Recorded Advance Directives Directive None Recorded Payers Encounter Date Sequence Insurance Name Policy Number Policy Azul Covered Member ID Azul Member ID Guarantor Name 03/16/2023 1 [employer] [place] [employer] ADVANTAGE [facility] (MEDICARE REPLACEMENT HMO) [id number] Esperanza Dean [id number] Esperanza Dean 03/16/2023 2 [place] [facility] Esperanza Dean [id number] Esperanza Dean 03/22/2023 1 [employer] [place] MEDICARE ADVANTAGE PLAN (MEDICARE REPLACEMENT HMO) [id number] Esperanza Dean [id number] Esperanza Dean 03/24/2023 1 [employer] [place] [employer] [place] ADVANTAGE PLAN (MEDICARE REPLACEMENT HMO) [id number] Esperanza Dean [id number] Esperanzamurtaza Loveelin 03/24/2023 2 [place] [facility] Esperanza Dean [id number] Esperanzamurtaza Dean 04/19/2023 1 [employer] [place] MEDICARE ADVANTAGE PLAN (MEDICARE REPLACEMENT HMO) [id number] Esperanza Dean [id number] Esperanzafaheem LoveDianne 05/26/2023 1 [employer] [place] [employer] MEDIC[employer] ADVANTAGE PLAN (MEDICARE REPLACEMENT HMO) [id number] Esperanza Dean [id number] Esperanzafaheem LoveDianne 05/26/2023 2 [place] [facility] Esperanza Loveelin [id number] Esperanza Loveelin Notes Date Note Type Note Provider Name and Address Organization Details Recorded Time 03/16/2023 text/html This is a pleasa nt 62-year-old female who had a cortisone injection of the right knee on 12/20/2022. She states she has had waning effect from cortisone injections at this point she is ready for knee replacement surgery. She has lost a significant amount of weight however her BMI is still over 40. She is a diabetic that is well-controlled with an A1c of 6.8. 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 TERESA SHINE PA-C [address] [place] [address], [id number], [place] - [facility] 03/16/2023 12:32:58 OBGyn Episode No OBEpisode recorded.
--- OUTSIDE RECORDS SUMMARY | 2024-06-07 08:59 | XMS_ITS | Clinical Summary ---
Author Organization [facility], Address [address] [place] [address] [place] [address] Phone Care Team Providers Care Marketing Intern Name Role Phone Janak Greer MD Primary Care Provider [phone] Allergies No known active allergies Medications aspirin (ST JULI) 81 MG EC tablet Take 1 tablet by mouth 1 (one) time each day Active Multiple Vitamins-Nursing Agency Manager als (CENTRUM SILVER PO) Take 1 tablet [...] MG tablet 9 Active Continuous Blood Gluc Propeller Layout Worker (FREESTYLE KAPIL 14 DAY READER) device 9 [...] Visit [facility], [address] [address] Kelechi Moran MD [address] [facility] [address] [place] [phone] Health Maintenance Due Date Last Done Comments [...] this topic Insurance Medicaid [place] Care Teams Marketing Intern Relationship Specialty Start Date End Date Janak Greer MD [address] PCP - General 12/18/18
--- OUTSIDE RECORDS SUMMARY | 2024-06-07 08:59 | XMS_ITS | Encounter Summary ---
Author Organization [facility] Address [address] [address] Phone Care Team Providers Care Steward/Stewardess Tourist Class Name Role Phone Janak Greer MD Primary Care Provider [phone] Encounter Details Date Type Department Care Team (Late Contact Info) Description 04/01/2021 Documentation Only [facility] [address] [place] [address] Kelechi Moran MD [address] [place] [address] [place] [address] Social History Tobacco Use Types [...] [facility] [address] [place] [address] Kelechi Moran MD [address] [place] [address] [place] [address] documented as of this encounter Visit Diagnoses Not on filedocumented in this encounter Care Teams Steward/Stewardess Tourist Class Relationship Specialty Start Date End Date Janak Greer MD [address] PCP - General 12/18/18 documented as of this encounter
--- OUTSIDE RECORDS SUMMARY | 2024-06-07 08:59 | XMS_ITS | Encounter Summary ---
Author Organization [facility] Address [address] [address] Phone Care Team Providers Care Sales Administration Manager Name Role Phone Janak Greer MD Primary Care Provider [phone] Encounter Details Date Type Department Care Team (Late Contact Info) Description 02/26/2021 Documentation Only [facility] [address] [place] [address] Kelechi Moran MD [address] [place] [address] [place] [address] Social History Tobacco Use Types [...] Visit [facility] [address] [place] [address] Kelechi Moran MD [address] [place] [address] [place] [address] documented as of this encounter Visit Diagnoses Not on filedocumented in this encounter Care Teams Sales Administration Manager Relationship Specialty Start Date End Date Janak Greer MD [address] PCP - General 12/18/18 documented as of this encounter
--- OUTSIDE RECORDS SUMMARY | 2024-06-07 08:59 | XMS_ITS | Clinical Summary ---
Author Organization [facility] Address [address] [place] [address] Care Team Providers Care Classics Teacher Name Role Phone Janak Greer MD Primary Care Provider [phone] Allergies No known active allergies Medications No known medications Active Problems No known active problems Immunizations Immunization Administration Dates Next Due Covid-19 MRNA Vaccine - Pfizer 12+ (Purple Cap) 10/27/2021 Social History Tobacco Use Types Packs/Day Years Used Date Smoking Tobacco: Never Smokeless Tobacco: Never Tobacco Cessation:Counseling Given: Not Answered Comments Unknown Sex and Gender Information Value [...] 10/01/2019, Additional history exists COVID-19 Vaccine ( - season) 2023 2022, 10/27/2021 Hepatitis B Vaccines Aged Out No long er eligible based on patient's age to complete this topic Insurance Care Teams Classics Teacher Relationship Specialty Start Date End Date Janak Greer MD [address] [place] [address] PCP - General Internal Medicine 08/09/22
--- OUTSIDE RECORDS SUMMARY | 2024-06-07 08:59 | XMS_ITS | Data Portability ---
Author Organization [place] - [facility], Allergy Address [address] [address] Care Team Providers Care Liquor Runner Name Role Phone LELAANUSHA Primary Care Provider [phone] Assessment Encounter Date Assessment Date Assessment LastModified [...] in 1-2 weeks as scheduled for reevaluation. [email or web address] Not available 08/10/2023 16:45:14 09/28/2023 09/28/2023 Patient [...] sinuses, w/o contrast 2023 [facility], [address] [place], [address], 4 14:09:46 Medication Orders doxycyclin e hyclate 100 mg capsule 2023 [id number] [phone] [place], [address], 4 11:38:28 fluticason e propionate 50 mcg/actuat ion nasal spray,susp ension 2023 024 [facility]/Pharmacy #[id number], [phone] [place], [address], 4 12:08:06 Patient TargetsNo targets recorded. Patient [...] No observ ation record ed. [email or web address] Ents [address], [address], 07/24/2023 12:41:01 07/26/19 24 audio gram No observ ation record ed. BARCODE Not Available 2023 12:46:02 08/08/19 24 07/24/2023 CT, sinus es, w/o contr ast No observ ation record ed. [facility] [address], [address], 08/08/2023 22:58:50 Result Notes None recorded. Problems Name Problem SNOMED Code Status Onset Date Resolution Date Notes Provider Name and Address Organization Details Recorded Time Benign paroxysma l positiona l vertigo 758281129 Active 2020 Benign paroxysma l vertigo, unspecifi ed ear; Note: Date Diagnosed : 04/14/2020 10:02 AM (H81.10) Not Available [facility] 4 02:26:19 Otorrhagi a of right ear 30391775993 59643 Active 2022 Otorrhagi a, right ear; Note: Date Diagnosed : 06/14/2022 2:51 PM (H92.21) Not Available [facility] 4 02:26:40 Disturban ce of salivary secretion 01206769 Active 2021 Xerostomi a; Note: Date Diagnosed : 09/30/2021 11:57 AM (K11.7) Not Available [facility] 4 02:26:26 Bilateral temporoma ndibular joint pain 37744319840 597638 Active 2022 Arthralgi a of bilateral temporoma ndibular joint; Note: Date Diagnosed : 05/10/2022 2:35 PM (M26.623) Arthral justin of bilateral temporoma ndibular joint; Note: Date Diagnosed : 04/14/2020 10:02 AM (M26.623) ; Start Date : Not Available [facility] 4 02:26:33 Gastroeso phageal reflux disease without esophagit is 176885086 Active 2021 Gastro-es ophageal reflux disease without esophagit is; Note: Date Diagnosed : 04/15/2021 10:11 AM (K21.9) Not Available [facility] 4 02:26:18 Sensorine ural hearing loss of bilateral ears 658866701 Active 2020 Sensorine ural hearing loss, bilateral ; Note: Date Diagnosed : 04/14/2020 10:03 AM (H90.3) Not Available [facility] 4 02:26:31 Allergic rhinitis caused by pollen 93942710 Active 2021 Allergic rhinitis due to pollen; Note: Date Diagnosed : 09/30/2021 11:57 AM (J30.1) Not Available [facility] 4 02:26:46 Bleeding from nose 649439035 Active 2022 Epistaxis ; Note: Date Diagnosed : 05/10/2022 2:35 PM (R04.0) Not Available [facility] 4 02:26:44 Chronic sinusitis 15725539 Active 2023 ELENITA KANG MD [address] [place] [address], [place], [address] , [facility] - [facility] 4 21:08:07 Deviated nasal septum 666120272 Active 2023 ELENITA KANG MD [address] [facility], [place], [address] , [place] - [facility] 4 21:08:13 Abnormal auditory perceptio n 10970801 Active 2023 ELENITA KANG MD [address] [facility] [address],[place] [address], [place], [address] , [place] [facility] 4 12:02:38 Chronic left maxillary sinusitis 52982353257 664079 Active 2023 ELENITA KANG MD 100 [facility],[place] [address], [place], [address] , [place] - [facility] 4 14:04:57 Obstructi ve sleep apnea syndrome 85064277 Active 2023 ELENITA KANG MD 100 [facility],[place] [address], [place], [address] , [place] [facility] 4 14:22:09 Chronic maxillary sinusitis 72540305 Active 2023 Chronic maxillary sinusitis ; Note: Date Diagnosed : 06/12/2023 11:15 AM (J32.0) Not Available [facility] 4 02:26:21 Acute maxillary sinusitis 53185273 Active 2023 Acute maxillary sinusitis , unspecifi ed; Note: Date Diagnosed : 04/25/2023 11:27 AM (J01.00) Not Available [facility] 4 02:26:24 Problem Notes None recorded. Procedures Surgical History Date Name Laterality Status Provider Name and Address Organization Details Recorded Time 01/08/20 24 NasalEndoscopy_DP completed MARVIN CHEUNG PA-C 100 [facility],[place] [address], [place], [address], [facility] 01/08/2024 12:45:15 09/28/19 24 JMSNasal/Sinus Endoscopy-PRIOR surgical cavities completed ELENITA MONTANO MD [address] [facility] [address] [address], [place], [address], [place] - [facility] 09/28/2023 12:07:20 08/25/19 24 JMSNasal/Sinus Endoscopy-DEBRIDE MENT completed ELENITA MONTANO MD [address], [address], [facility] - [facility] 08/25/2023 14:20:40 08/10/19 24 JMSNasal/Sinus Endoscopy-DEBRIDE MENT completed RAMYA BHATTI PA-C [address], [address], [facility] - [facility] 08/10/2023 16:43:40 08/08/19 24 ENDOSCOPY, NASAL/SINUS W/ PARTIAL ETHMOIDECTOMY (SURG) completed Nacho Aldana [place] - [facility] 08/11/2023 13:52:45 07/24/19 24 JMSNasal/Sinus Endoscopy completed ELENITA MONTANO MD [address] [place] [address], [address], [facility] - [facility] 07/24/2023 12:01:33 07/24/19 24 SRT & Tymps ([address] & [address]5912) completed Leah Donaldson [place] - [facility] 07/24/2023 12:28:03 Imaging Results Imaging Date Name Status LastModified by Organiz ation Details LastModified Time 07/24/2023 CT, sinuses, w/o contrast completed [facility] [address], [address], 07/24/2023 12:41:01 07/26/2023 audiogram completed [facility] Information no t available 07/26/2023 12:46:02 07/24/2023 CT, sinuses, w/o contrast completed [facility] [address], [address], 08/08/2023 22:58:50 Procedure Notes None recorded. Medical [...] mg tablet 09/30 completed Medicati on ID: [id number] B rand Name: furosemi de Send Method: E-Prescr ibed Sub s Allowed: subs OK Medic ationGen ericName : furosemi de Not Available Not Available Not Available Miralax 17 gram/dose oral powder 09/30 completed Medicati on ID: [id number] B rand Name: Miralax Send Method: E-Prescr [...] pack Take 06/11 completed Medicati on ID: [id number] P rescribe d By Name: Joleen Cruz MD Brand Name: Medrol (Jeff) Se nd Method: E-Prescr ibed Sub s Allowed: subs OK Rauli al Instruct ion: take as instruct ed Medic ationGen ericName : Medrol (Jeff) Not Available Not Available Not Available prednison e 20 mg tablet by mouth 2023 active Medicati on ID: [id number] B rand Name: predniso ne Send Method: [...] tended release 09/30 completed Medicati on ID: [id number] B rand Name: Tylenol Arthriti s Pain [...] mg tablet 09/30 completed Medicati on ID: 292137 B rand Name: oxcarbaz epine Se nd Method: E-Prescr ibed Sub s Allowed: subs OK Medic ationGen ericName : oxcarbaz epine Not Available Not Available Not Available acetamino phen 300 mg-codein e 30 mg tablet active Medicati on ID: [id number] B rand Name: acetamin ophen-co deine Se [...] mcg tablet 09/30 completed Medicati on ID: [id number] B rand Name: levothyr oxine Se nd Method: E-Prescr ibed Sub s Allowed: subs OK Medic ationGen ericName : levothyr oxine Not Available Not Available Not Available hydrocort isone 2.5 % topical cream with perineal applicato r 06/11 completed Medicati on ID: [id number] B rand Name: hydrocor tisone S end [...] 100 mg tablet active Medicati on ID: [id number] B rand Name: trazodon e Send Method: E-Prescr ibed Sub s Allowed: subs OK Medic ationGen ericName : trazodon e Medica tion ID: [id number] B rand Name: trazodon e Send Method: E-Prescr ibed Sub s Allowed: subs OK Medic ationGen ericName : trazodon e Not Available Not Available Not Available benzonata te 100 mg capsule TAKE 1 CAPSULE BY MOUTH THREE TIMES A DAY FOR 3 DAYS active Not Available Not Available No t Available levothyro xine 50 mcg tablet active Medicati on ID: 942813 B rand Name: levothyr oxine Se nd Method: E-Prescr ibed Sub s Allowed: subs OK Medic ationGen ericName : levothyr oxine Not Available Not Available Not Available cephalexi n 500 mg capsule TAKE 1 CAPSULE BY MOUTH FOUR TIMES A DAY active Not Available Not Available No t Available tacrolimu s 0.1 % topical ointment 06/11 completed Medicati on ID: [id number] B rand Name: tacrolim us Send Method: [...] mg tablet 06/11 completed Medicati on ID: 753125 B rand Name: hydroxyz ine HCl Send [...] nasal spray 09/30 completed Medicati on ID: [id number] B rand Name: azelasti ne Send Method: [...] unit) tablet 09/30 completed Medicati on ID: [id number] B rand Name: Vitamin D3 Send Method: E-Prescr ibed Sub s Allowed: subs OK Medic [facility] ericName : Vitamin D3 Not Available [...] as directed 2022 active Medicati on ID: [id number] D uration Value: 14 Brand Name: Ciprodex Send Method: E-Prescr ibed Sub s Allowed: subs OK [facility] Not Available Not Available Not Available escitalop brittany 5 mg tablet TAKE 1 TABLET BY MOUTH ONCE DAILY. TAKE TOGETHER WITH 20 MG FOR TOTAL OF 25 MG PER DAY active Not Available Not Available No t Available Cinnamon 500 mg capsule 09/30 completed Medicati on ID: [id number] B rand Name: Cinnamon Send Method: E-Prescr ibed Sub s Allowed: subs OK [facility] Cinnamon Not Available Not Available [...] mcg tablet 09/30 completed Medicati on ID: 137147 B rand Name: Centrum Silver Women Se [...] ous pen injector active Medicati on ID: [id number] B rand Name: Иван Send Method: E-Prescr [...] Updated DateTime 08/10/2023 162.56 cm 43.9 kg/m2 545473.65 g Deborah Godfrey [place] - [facility] 08/10/2023 15:56:40 Date Recorded Body height Provider Name an d Address Organization Details Last Updated DateTime 08/25/2023 162.56 cm Jacob Bishop [place] - [facility] 08/25/2023 14:03:50 Date Recorded Body height Body mass index (BMI) Body weight Provider Name and Address Organization Details Last Updated DateTime 09/28/2023 162.56 cm 43.4 kg/m2 681796.87 g Jacob Bishop [place] - [facility] 09/28/2023 11:59:23 Date Recorded Body height Body mass index (BMI) Body weight Provider Name and Address Organization Details Last Updated DateTime 07/24/2023 162.56 cm 43.9 kg/m2 915325.65 g Jacob Bishop [place] - [facility] 07/24/2023 11:37:39 Social History None recorded. Functional Status None recorded. Mental Status None recorded. Family History Nothing Reported. Medical History Condition Response Anxiety Y Thyroid Problems Y Depression Y Diabetes Y Sleep Disorder Y High Cholesterol Y GERD/Reflux Y Hypertension Y Gynecological HistoryNo gynecological history recorded. Obstetrics History GPAL:G 0 P 0 0 0 0 Past Encounters Encounter ID Performer Location Encounter Start Date Encounter Closed Date Diagnosis/Indication Diagnosis SNOMED-CT Code Diagnosis ICD10 Code Diagnosis Note [id number] ELENITA KANG MD [facility] [address] [address] 07/24/2023 10:58:36 07/24/2023 13:19:59 Chronic sinusitis 17855323 J32.9 J32.8 Because of increased symptoms on [...] handout was given Deviated nasal septum 12 2389728 J34.2 Abnormal a uditory perception 55209765 H93.293 Tymp and SRT reviewedA speech awareness threshold test, tympanomet ry, and distortion product otoacousti c emission test were performed. Results are as follows: Speech Awareness/ Charge Loader Test: Right Ear:{{with in normal limits 0 [...] seal}} [id number] MIKE MONTOYA MD [facility] [address] [address] 08/10/2023 15:42:46 08/10/2023 16:16:37 Chronic sinusitis 18817907 J32.8 Postoperative visit 1836 93675 Z48.89 [id number] ELENITA KANG MD [facility] 100 [place] [address] 08/25/2023 13:59:35 08/25/2023 14:34:07 Chronic left maxillary sinusitis 4620237875 7801988 J32.0 No residual infection. Debridemen t performed. Suggest gentle irrigation to avoid ear symptoms. Burning mouth has improved. She can take some probiotics . Follow-up 4 weeks. Abnormal a uditory perception 71628254 H93.293 No fluid Obstructiv e sleep apnea syndrome 12675239 G47.33 Resume CPAP [id number] ELENITA KANG MD [facility] 100 [place] [address] 09/28/2023 11:30:17 09/28/2023 12:14:30 Chronic left maxillary sinusitis 4254254147 6670835 J32.0 No residual infection. Debridemen t performed. Suggest gentle irrigation to avoid ear symptoms. Burning mouth has improved. She can take some probiotics . Follow-up 4 weeks. Deviated nasal septum 12 1387870 J34.2 [id number] GARRY LINK MD [facility] 100 [place] [address] 01/08/2024 10:59:57 01/08/2024 11:42:28 Deviated nasal septum 061612680 J34.2 right Chronic le ft maxillary sinusitis 5466946201 5589196 J32.0 Health Concerns Section Related Observation LastModified by Organization Detai ls LastModified Time None Recorded Concern Status LastModified by Organization Details LastModified Time None Recorded Advance Directives Directive None Recorded Payers Encounter Date Sequence Insurance Name Policy Number Policy Azul Covered Member ID Azul Member ID Guarantor Name 07/24/2023 2 [place] [facility] [address] Esperanza Mónica Dianne [id number] Esperanza M Dianne 07/24/2023 [address] [place] [id number] Esperanzamur[employer] Sales Dianne [id number] Esperanza M Dianne 08/10/2023 2 [place] [facility] [address] Esperanza M Dianne [id number] Esperanza M Dianne 08/10/2023 [address] [place] [address] Esperanza M M Dianne [id number] Esperanza M Dianne 08/25/2023 2 [place] [facility] Esperanza Mónica Dianne [id number] Esperanza M Dianne 08/25/2023 [address] [place] [address] Esperanza Mónica M Dianne [id number] Esperanza M Dianne 09/28/2023 2 [place] [facility] Esperanza M Dianne [id number] Esperanza M Dianne 09/28/2023 [address] [place] [address] Esperanza Sales M Dianne [id number] Esperanza M Dianne 01/08/2024 2 [place] [facility] [address] Esperanza M Dianne [id number] Esperanza M Dianne 01/08/2024 [address] [place] [address] Esperanza Sales M Dianne [id number] Esperanza M Dianne Notes Date Note Type Note Provider Name and Address Organization Details Recorded Time 07/24/2023 text/html No change with prednisone or abx. Still has facial pressure and ear fullness L > R prior [id number] with chronic left maxillary sinusitis. Symptoms started [...] endoscopic sinus surgery. ELENITA MONTANO MD 100 [facility],[address], [address], [facility] - [facility] 07/24/2023 12:45:01 08/10/2023 text/html 62-year-old fema le presents status post left maxillary antrostomy with sigifredo bullosa resection on 08/08/[address] Montano. She is doing well postoperatively. Currently on amoxicillin. MIKE MONTOYA MD 100 [facility],[address], [address], [facility] - [facility] 08/10/2023 17:13:02 08/25/2023 text/html Patient seen following endoscopic surgery she is August 07. She still has some left facial pressure, ear fullness and nasal discharge. No HL. Smell and taste ok. Been irrigating twice daily and using saline solution 3-4 times per day. Finished abx but got burning. No thrush. Holding CPAP ELENITA MONTANO MD 100 [facility], [place], [address], [facility] - [facility] 08/25/2023 14:22:37 09/28/2023 text/html Patient with chronic sinusitis status post left-sided surgery. She has a known rightward septal deviation and had mild sinus thickening on that side. We elected to proceed with left-sided surgery only. She notes significant improvement and just a little bit of congestion in the morning. ELENITA MONTANO MD 100 [facility],[place] [address], [place], [address], [place] - [facility] 09/28/2023 12:08:38 01/08/2024 text/html 63 year [...] offer some relief. GARRY LINK MD 100 [facility] [address], [place], [address], [place] - [facility] 01/08/2024 21:13:08 OBGyn Episode No OBEpisode recorded.
--- NOTE | 2024-06-07 09:28 | MHC.OFFVIS ---
Vital Signs 06/07/24 09:34 Height 5 ft 4 in Weight 237 lb BMI 40.7 Intake Visit Reasons: New prob Left hip pain Intake Note: Esperanza is a 63 year old female who presents today with her mother for a evaluation of her left hip pain. no hx of injury. Patient reports on going pain for about a 2 - 3 month. She mentions that her pain is on the lateral area and it moves to her lower back at time and it moves to her groin. Patient finds bending down, sitting and laying on her side very difficult and painful. She has tried heat and topical ointment cream with mild relief. Allergies No Known Allergies Allergy (Verified 06/07/24 09:34) HPI HPI New prob Left hip pain: Details: Ms. Dean this is a 63-year-old female who presents to the office today for left lateral hip pain which occasionally radiates to the buttocks and groin. She reports that the pain has been present for the past 2-3 months. She denies any injury or trauma to the area. She reports that bending, sitting and laying on the left side increases her pain. She has tried heat and topical cream with mild relief. [facility] Medical History (Updated 06/07/24 @ 11:28 by Sis Lehman PA-C) Insomnia Stress incontinence History of venous thromboembolism Insulin dependent type 2 diabetes mellitus Anxiety Bipolar 1 disorder Arthritis of right knee Fatty liver Asthma Hypothyroid DVT (deep venous thrombosis) Fibromyalgia HTN (hypertension) Chronic renal insufficiency Type 2 diabetes mellitus Bipolar disorder Depression Morbid obesity Chronic pulmonary embolism Sleep apnea GERD (gastroesophageal reflux disease) Elevated cholesterol Surgical History (Updated 05/27/24 @ 11:42 by Gibran Palm MD) History of right knee joint replacement History of esophagogastroduodenoscopy (EGD) H/O colonoscopy Hx of inguinal hernia repair Hx of sinus surgery Hx of shoulder surgery Hx of umbilical hernia repair Hx of arthroscopy of right knee History of bladder suspension procedure Hx of tonsillectomy H/O: hysterectomy History of ankle surgery Family History (Updated 05/16/24 @ 14:59 by LARISSA Dickson) Father Heart failure Diabetes HTN (hypertension) Maternal Aunt Diabetes Paternal Grandmother Diabetes Mother HTN (hypertension) Social History (Updated 06/07/24 @ 09:35 by Carol Paz) Household Members: Family Household Members Other:: takes care of parents Housing: House Are you a primary customer care consultant to a significant other at home: No Do you presently have visiting nurse or other home services: No Patient Tobacco Use Status: Former Tobacco user Tobacco use type: Cigarette Years Smoked: 30 service: No Current occupational status: retired Review of Systems Const All systems reviewed & are unremarkable except as noted in HPI and below Physical Exam Vital Signs: BMI result Body Mass Index 40.7 Const General: cooperative, healthy appearing and no acute distress Extrem Other: Left hip tenderness to palpation over the greater trochanteric bursa. Denies groin pain with internal and external rotation with good terminal range of motion. Able to perform straight leg raise without difficulties. NVI. Office Procedures AMB Joint Injection/Aspiration Joint Injection/Aspiration Primary Site: other (left hip greater troch bursa) Secondary Site: other (left hip greater troch bursa ) Prep: site was prepped using aseptic technique, ethochloride spray was applied and injection warnings given Injected: 40 mg of, DepoMedrol, with 8 mL of (2% plain lido ) and other (greater trochanteric bursa ) Approach Used: other (lateral) Procedure: The patient tolerated the procedure well, but had some pain with the injection and there was some relief with the local anesthesia Coding 10928 - Glenohumeral/Tronchanteric Bursa/Intraarticular Procedure code (CPT) selection complete Assessment & Plan Assessment & Plan (1) Greater trochanteric bursitis of left hip: Code(s): M70.62 - Trochanteric bursitis, left hip Category: Medical (2) Insulin dependent type 2 diabetes mellitus: Code(s): E11.9 - Type 2 diabetes mellitus without complications; Z79.4 - half-way (current) use of insulin Category: Medical Plan Ms. Dean this is a 63-year-old female who presents to the office today for left lateral hip pain which occasionally radiates to the buttocks and groin. She reports that the pain has been present for the past 2-3 months. She denies any injury or trauma to the area. She reports that bending, sitting and laying on the left side increases her pain. She has tried heat and topical cream with mild relief. The patient was offered a cortisone injection in the left hip greater trochanteric bursa with 40 mg of DepoMedrol. The patient was explained the risks, benefits, and alternatives to receiving this injection. After receiving consent for the injection, the patient had the procedure done while in the office today. The patient tolerated the procedure well with no complications. Due to the patient?s history of diabetes, they were instructed to monitor their blood glucose level. The patient was informed that they could see a rise in their numbers and if the numbers became too high, they were instructed to call their PCP. The patient was also informed that they could have facial flushing as a side effect of the injection, but this will pass. Should this not assist in resolving her pain the next step would be an intra-articular cortisone injection into the left hip for the groin pain that she is experiencing. Follow-up will be p.r.n., or sooner if needed Orders: Orders XR hip LT min 2V Today M25.559 - Pain in unspecified hip Coding Level of Care Code Est Pt Level 4 (20356) Diagnoses Greater trochanteric bursitis of left hip M70.62 Insulin dependent type 2 diabetes mellitus E11.9; Z79.4 CPT Codes Coding - Joint 7: 27709 - Glenohumeral/Tronchanteric Bursa/Intraarticular ([id number])
[2024-06-07 09:34] VITALS: BMI 40.7
== END 2024-06-07 10:21 | disposition home or self-care (01) ==
LOC: HO.HOS 08:52
PROVIDERS: PCP Internal Medicine; Visit Provider Physician Assistant
DX: M70.62 Trochanteric bursitis, left hip (principal); E11.9 Type 2 diabetes mellitus without complications; Z79.4 Long term (current) use of insulin
CPT/HCPCS: 20610; 99214

== ENCOUNTER → 2024-06-07 09:01 | Outpatient (BNV) | payer MEDICARE, MEDICAID, SELFPAY | PROVIDERS: PCP Internal Medicine; Visit Provider Radiology Diagnostic Radiology | DX: M25.552 Pain in left hip (principal); E66.01 Morbid (severe) obesity due to excess calories | CPT/HCPCS: 71046; 73502 ==

== ENCOUNTER 2024-06-07 13:37 | Outpatient (REF) | payer MEDICARE, MEDICAID, SELFPAY ==
--- NOTE | ~2024-06-07 | XR_ITS ---
EXAMINATION: XR CHEST CLINICAL INFORMATION: E66.01 - Morbid (severe) obesity due to excess calories COMPARISON: None available. TECHNIQUE: 2 views of the chest were obtained. FINDINGS: No consolidation, pleural fissure pneumothorax. No hyperinflation. Cardiomediastinal silhouette size is normal. Right apex. Multilevel thoracic spondylosis. XR/XR chest 2V IMPRESSION: No acute airspace disease. Electronically signed by: Ankit Dominguez MD 06/10/2024 02:08 PM EDT
--- NOTE | ~2024-06-07 | XR_ITS ---
EXAMINATION: XR HIP, LEFT CLINICAL INFORMATION: M25.559 - Pain in unspecified hip COMPARISON: None available. TECHNIQUE: Two views of the left hip. FINDINGS: No acute cortical disruption or malalignment. No lytic or blastic lesions. Osteophyte formation in the greater trochanter. Sclerosis and the sacroiliac joints and symphysis pubis. . Right hip is intact with normal alignment. XR/XR hip LT min 2V IMPRESSION: Mild osteoarthrosis, left hip. Electronically signed by: Ankit Dominguez MD 06/10/2024 02:07 PM EDT
--- NOTE | 2024-06-07 13:47 | ECG_ITS ---
Test Reason : E66.01 Blood Pressure : */* mmHG Vent. Rate : 73 BPM Atrial Rate : 73 BPM P-R Int : 160 ms QRS Dur : 86 ms QT Int : 386 ms P-R-T Axes : 48 8 49 degrees QTcB Int : 425 ms Normal sinus rhythm Normal ECG No previous ECGs available Referred By: Gibran Palm Electronically Signed By: BOUBACAR CASTELLANOS
--- OUTSIDE RECORDS SUMMARY | 2024-06-07 14:24 | XMS_ITS | Clinical Summary ---
Author Organization [facility] Address [address] [place] [address] Care Team Providers Care Almond Roaster Name Role Phone Jaank Greer MD Primary Care Provider [phone] Allergies No known active allergies Medications No [...] to complete this topic Insurance Care Teams Almond Roaster Relationship Specialty Start Date End Date Janak Greer MD [address] [place] [address] PCP - General Internal Medicine 08/09/22
--- OUTSIDE RECORDS SUMMARY | 2024-06-07 14:24 | XMS_ITS | Clinical Summary ---
Author Organization [facility] Address [address] [place] [address] Care Team Providers Care Inspector Watch Assembly Name Role Phone Janak Greer MD Primary Care Provider [phone] Allergies No known active allergies Medications Medication [...] 0 05/13/2019 Act kay Continuous Blood Gluc Monitor Worker (FreeStyle Joseph 14 Day Glasco) PABLO 0 01/29/2019 Active Continuous Blood Gluc [...] Quadrivalent) 0.5 ML ROSE MARIE Flucelvax Quad [id number] (PF) 60 mcg (15 mcg x 4)/0.5 [...] ambreen lite 0 Active Continuous Blood Gluc Monitor Worker (FreeStyle Joseph 14 Day Glasco) PABLO FreeStyle Joseph 14 Day Glasco 0 Active Lancets (freestyle) lancets FreeStyle Joseph [...] age to complete this topic Care Teams Inspector Watch Assembly Relationship Specialty Start Date End Date Janak Greer MD [address] [place] [address] PCP - General Internal Medicine 12/27/18
--- OUTSIDE RECORDS SUMMARY | 2024-06-07 14:24 | XMS_ITS | Encounter Summary ---
Author Organization [facility] Address [address] [address] Phone Care Team Providers Care Distilling Department Supervisor Name Role Phone Janak Greer MD Primary Care Provider [phone] Encounter Details Date Type Department Care Team (Late Contact Info) Description 05/17/2021 Documentation Only [facility] [address] [place] [address] Kelechi Moran MD [address] [place] [address] [place] [address] Social History Tobacco Use Types [...] Visit [facility] [address] [place] [address] Kelechi Moran MD [address] [place] [address] [place] [address] documented as of this encounter Visit Diagnoses Not on filedocumented in this encounter Care Teams Distilling Department Supervisor Relationship Specialty Start Date End Date Janak Greer MD [address] PCP - General 12/18/18 documented as of this encounter
--- OUTSIDE RECORDS SUMMARY | 2024-06-07 14:24 | XMS_ITS | Encounter Summary ---
Author Organization [facility] Address [address] [place] [address] Care Team Providers Care Etymology Teacher Name Role Phone Janak Greer MD Primary Care Provider [phone] Encounter Details Date Type Department Care Team (Late st Contact Info) Description 10/07/2022 Telephone [facility] [address] [place] [phone] Rommel Whyte MD [address] [place] [address] Social History Tobacco Use Types Packs/Day Years [...] on filedocumented in this encounter Care Teams Etymology Teacher Relationship Specialty Start Date End Date Janak Greer MD [address] [place] [address] PCP - General Internal Medicine 08/09/22 documented as of this encounter
--- OUTSIDE RECORDS SUMMARY | 2024-06-07 14:24 | XMS_ITS | Encounter Summary ---
Author Organization [facility] Address [address] [place] [address] Care Team Providers Care Calender Feeder Name Role Phone Janak Gerer MD Primary Care Provider [phone] Encounter Details Date Type Department Care Team (Late st Contact Info) Description 06/06/2023 Scanned Document [address] [phone] Provider, Generic Social History Tobacco Use Types [...] on filedocumented in this encounter Care Teams Calender Feeder Relationship Specialty Start Date End Date Janak Greer MD [address] [place] [address] PCP - General Internal Medicine 08/09/22 documented as of this encounter
--- OUTSIDE RECORDS SUMMARY | 2024-06-07 14:24 | XMS_ITS | Encounter Summary ---
Author Organization [facility] Address [address] [address] Phone Care Team Providers Care Dispensing Optician Name Role Phone Janak Greer MD Primary Care Provider [phone] Encounter Details Date Type Department Care Team (Late Contact Info) Description 04/01/2021 Documentation Only [facility] [address] [place] [address] Kelechi Moran MD [address] [place] [address] [place] [address] Social History Tobacco Use Types [...] Visit [facility] [address] [place] [address] Kelechi Moran MD [address] [place] [address] [place] [address] documented as of this encounter Visit Diagnoses Not on filedocumented in this encounter Care Teams Dispensing Optician Relationship Specialty Start Date End Date Janak Greer MD [address] PCP - General 12/18/18 documented as of this encounter
--- OUTSIDE RECORDS SUMMARY | 2024-06-07 14:24 | XMS_ITS | Clinical Summary ---
Author Organization [facility], Address [address] [place] [address] [place] [address] Phone Care Team Providers Care Warehouse Picker Name Role Phone Janak Greer MD Primary Care Provider [phone] Allergies No known active allergies Medications aspirin (ST JULI) 81 MG EC tablet Take 1 tablet by mouth 1 (one) time each day Active Multiple Vitamins-Dye Colorist Formulator als (CENTRUM SILVER PO) Take 1 tablet [...] MG tablet 9 Active Continuous Blood Gluc French Instructor (FREESTYLE KAPIL 14 DAY READER) device 9 [...] Visit [facility] [place], [address] [facility] [address] Kelechi Moran MD [address] [facility] [place] [phone] Health Maintenance Due Date Last Done Comments [...] this topic Insurance Medicaid [place] Care Teams Warehouse Picker Relationship Specialty Start Date End Date Janak Greer MD [address] PCP - General 12/18/18
--- OUTSIDE RECORDS SUMMARY | 2024-06-07 14:24 | XMS_ITS | Encounter Summary ---
Author Organization [facility] Address [address] [place] [address] Care Team Providers Care Angiography Technologist Name Role Phone Janak Greer MD Primary Care Provider [phone] Encounter Details Date Type Department Care Team (Late st Contact Info) Description 09/27/2022 Scanned Document [facility] [address] [address] Rommel Whyte MD [address] [place] [address] Social History Tobacco Use Types Packs/Day Years [...] on filedocumented in this encounter Care Teams Angiography Technologist Relationship Specialty Start Date End Date Janak Greer MD [address] [place] [address] PCP - General Internal Medicine 08/09/22 documented as of this encounter
--- OUTSIDE RECORDS SUMMARY | 2024-06-07 14:24 | XMS_ITS | Encounter Summary ---
Author Organization [facility] Address [address] [place] [address] Care Team Providers Care Compress Machine Operator Name Role Phone Janak Greer MD Primary Care Provider [phone] Encounter Details Date Type Department Care Team (Late st Contact Info) Description 09/28/2022 Telephone [facility] [address] [place] [phone] Rommel Whyte MD [address] [place] [address] Social History Tobacco Use Types Packs/Day Years [...] on filedocumented in this encounter Care Teams Compress Machine Operator Relationship Specialty Start Date End Date Janak Greer MD [address] [place] [address] PCP - General Internal Medicine 08/09/22 documented as of this encounter
--- OUTSIDE RECORDS SUMMARY | 2024-06-07 14:24 | XMS_ITS | Encounter Summary ---
Author Organization [facility] Address [address] [place] [address] Care Team Providers Care Value Stream Leader Name Role Phone Janak Greer MD Primary Care Provider [phone] Reason for Visit * Reason Comments Med Change Request Encounter Details Date Type Department Care Team ([facility] st Contact Info) Description 10/04/2022 Refill [facility] [address] [address] Leslie Howell PA-C [address] [place] [phone] Visit for wound check Social History Tobacco [...] check documented in this encounter Care Teams Value Stream Leader Relationship Specialty Start Date End Date Janak Greer MD [address] [place] [address] PCP - General Internal Medicine 08/09/22 documented as of this encounter
--- OUTSIDE RECORDS SUMMARY | 2024-06-07 14:24 | XMS_ITS | Encounter Summary ---
Author Organization [facility] Address [address] [address] Phone Care Team Providers Care Refrigeration Plant Cork Insulator Name Role Phone Janak Greer MD Primary Care Provider [phone] Encounter Details Date Type Department Care Team (Late Contact Info) Description 02/26/2021 Documentation Only [facility] [address] [place] [address] Kelechi Moran MD [address] [place] [address] [place] [address] Social History Tobacco Use Types [...] Visit [facility] [address] [place] [address] Kelechi Moran MD [address] [place] [address] [place] [address] documented as of this encounter Visit Diagnoses Not on filedocumented in this encounter Care Teams Refrigeration Plant Cork Insulator Relationship Specialty Start Date End Date Janak Greer MD [address] PCP - General 12/18/18 documented as of this encounter
--- OUTSIDE RECORDS SUMMARY | 2024-06-07 14:24 | XMS_ITS | Encounter Summary ---
Author Organization [facility] Address [address] [address] Phone Care Team Providers Care Air Vice Marshal Name Role Phone Janak Greer MD Primary Care Provider [phone] Encounter Details Date Type Department Care Team (Late Contact Info) Description 05/27/2021 Documentation Only [facility] [address] [place] [address] Kelechi Moran MD [address] [place] [address] [place] [address] Social History Tobacco Use Types [...] [facility] [address] [place] [address] Kelechi Moran MD [address] [place] [address] [place] [address] documented as of this encounter Visit Diagnoses Not on filedocumented in this encounter Care Teams Air Vice Marshal Relationship Specialty Start Date End Date Janak Greer MD [address] PCP - General 12/18/18 documented as of this encounter
--- OUTSIDE RECORDS SUMMARY | 2024-06-07 14:24 | XMS_ITS | Clinical Summary ---
Author Organization [facility] Address [address] [place] [address] Phone Care Team Providers Care Documentation Lead Name Role Phone Janak Greer MD Primary Care Provider [phone] Allergies No known active allergies Medications apixaban [...] 02/25/2020 DX:Depression Diabetes mellitus type 2, uncomplicated ([facility] V24, [facility] V28) 02/25/2020 DX:Diabetes mellitus type 2, uncomplicated (HCC) Bipolar disorder ([facility] V2 4, [facility] V28) 02/25/2020 DX:Bipolar disorder (HCC) SHAWN (obstructive sleep apnea) 02/25/2020 DX :SHAWN (obstructive sleep apnea) Severe obesity with body mas s index (BMI) of 35.0 to 39.9 with comorbidity (CMS/HCC V24, CMS/[facility] V28) 02/25/2020 DX:Severe obesity with body mass index (BMI) of 35.0 to 39.9 with comorbidity ([facility]) History of pulmonary embolus (PE) 02/25/2020 DX:History of pulmonary embolus (PE) Dyspnea 02/25/2020 DX:Dyspnea Blood clotting tendency ([facility] V24) DX:Blood clotting tendency (HCC) Diabetes mellitus ([facility] V 24, [facility] V28) DX:Diabetes mellitus (HCC) High blood [...] Results * COLONOSCOPY Anesthesia - MAC; [facility] ENDOSCOPY (03/04/2024 8:56 AM EST) Anatomical [...] previously scheduled. Narrative 03/04/2024 8:56 AM EST [facility] GI Patient Name: Esperanza Dean Procedure Date: [...] Procedure Code(s): ? --- Professional --- ? 86468, Colonoscopy, flexible; diagnostic, including ? collection of specimen(s) by brushing or washing, when ? performed (separate procedure) Diagnosis Code(s): ? --- Professional --- ? Z12.11, Encounter for screening for malignant neoplasm ? of colon CPT copyright 2020 [employer]. All rights reserved. The codes documented in this report are preliminary and upon certified coder review may be revised to meet current compliance requirements. Yovanny Harvey MD 03/04/2024 8:56:08 AM This report has been signed electronically.Yovanny Harvey MD Number of Addenda: 0 Note Initiated On: 03/04/2024 8:33 AM Scope In: Scope Out: ? Endoscopy Department at [facility] - [address] [place] [address], ? [place] [address] Procedure Note Yovanny Harvey MD - 03/04/2024 [facility] GI Patient Name: Esperanza Dean Procedure Date: [...] retroflexion views. Procedure Code(s): --- Professional --- 84876, Colonoscopy, flexible; diagnostic, including collection of specimen(s) by brushing or washing,when performed (separate procedure) Diagnosis Code(s): --- Professional --- Z12.11, Encounter for screening for malignantneoplasm of colon CPT copyright 2020 [employer]. All rights reserved. The codes documented in this report are preliminary and upon certified coder reviewmay be revised to meet current compliance requirements. Yovanny Harvey MD 03/04/2024 8:56:08 AM This report has been signed electronically.Yovanny Harvey MD Number of Addenda: 0 Note Initiated On: 03/04/2024 8:33 AM Scope In: Scope Out: Endoscopy Department at [facility] - [address] [place] [phone] IMPRESSION: - Diverticulosis in the sigmoid colon. [...] MEDICARE ADVANTAGE MEDICAID - [place] Care Teams Documentation Lead Relationship Specialty Start Date End Date Janak Greer MD PCP - General Internal Medicine 05/26/08
--- OUTSIDE RECORDS SUMMARY | 2024-06-07 14:24 | XMS_ITS | Encounter Summary ---
Author Organization [facility] Address [address] [address] Phone Care Team Providers Care Mexican Food Machine Tender Name Role Phone Janak Greer MD Primary Care Provider [phone] Encounter Details Date Type Department Care Team (Late Contact Info) Description 05/20/2021 Documentation Only [facility] [address] [place] [address] Kelechi Moran MD [address] [place] [address] [place] [address] Social History Tobacco Use Types [...] Visit [facility] [address] [place] [place] [address] Kelechi Moran MD [address] [place] [address] [place] [address] documented as of this encounter Visit Diagnoses Not on filedocumented in this encounter Care Teams Mexican Food Machine Tender Relationship Specialty Start Date End Date Janak Greer MD [address] PCP - General 12/18/18 documented as of this encounter
--- OUTSIDE RECORDS SUMMARY | 2024-06-07 14:24 | XMS_ITS | Encounter Summary ---
Author Organization [facility] Address [address] [address] Phone Care Team Providers Care Income Tax Preparer Name Role Phone Janak Greer MD Primary Care Provider [phone] Reason for Visit * Reason Comments New Med Request Encounter Details Date Type Department Care Team (Late Contact Info) Description 04/12/2022 Refill [facility] [address] [place] [address] Kelechi Moran MD [address] [place] [address] [place] [address] Social History Tobacco Use Types [...] Visit [facility] [address] [place] [address] Kelechi Moran MD [address] [place] [address] [place] [address] documented as of this encounter Visit Diagnoses Not on filedocumented in this encounter Care Teams Income Tax Preparer Relationship Specialty Start Date End Date Janak Greer MD [address] PCP - General 12/18/18 documented as of this encounter
--- OUTSIDE RECORDS SUMMARY | 2024-06-07 14:24 | XMS_ITS | Encounter Summary ---
Author Organization [facility] Address [address] [place] [address] Care Team Providers Care Line Leader Name Role Phone Janak Greer MD Primary Care Provider [phone] Encounter Details Date Type Department Care Team (Late st Contact Info) Description 09/30/2022 [facility]ill [facility] [address] [phone] Rommel Whyte MD [address] [place] [address] [place] [address] Chronic pain of left ankle Social History [...] ankle documented in this encounter Care Teams Line Leader Relationship Specialty Start Date End Date Janak Greer MD [address] [place] [address] PCP - General Internal Medicine 08/09/22 documented as of this encounter
== END 2024-06-07 13:38 | disposition home or self-care (01) ==
LOC: HO.HOSX 13:37
PROVIDERS: PCP Internal Medicine; Visit Provider Physician Assistant
DX: M70.62 Trochanteric bursitis, left hip (principal); M25.559 Pain in unspecified hip; E66.01 Morbid (severe) obesity due to excess calories; E11.9 Type 2 diabetes mellitus without complications; Z79.4 Long term (current) use of insulin; K21.9 Gastro-esophageal reflux disease without esophagitis; G47.30 Sleep apnea, unspecified; J45.909 Unspecified asthma, uncomplicated; E03.9 Hypothyroidism, unspecified
CPT/HCPCS: 20610; 71046; 73502; 93005; 99212; J1010; J2003

== ENCOUNTER → 2024-06-07 13:47 | Outpatient (BNV) | payer MEDICARE, MEDICAID, SELFPAY | PROVIDERS: PCP Internal Medicine; Visit Provider Internal Medicine | DX: E66.01 Morbid (severe) obesity due to excess calories (principal) | CPT/HCPCS: 93010 ==

== ENCOUNTER 2024-06-08 09:11 | Outpatient (REF) | payer MEDICARE, MEDICAID, SELFPAY ==
--- OUTSIDE RECORDS SUMMARY | 2024-06-08 09:14 | XMS_ITS | Encounter Summary ---
Author Organization [facility] Address [address] [place] [address] Care Team Providers Care Music Sound Light Technician Name Role Phone Janak Greer MD Primary Care Provider [phone] Reason for Visit * Reason Comments Med Change Request Encounter Details Date Type Department Care Team ([facility] st Contact Info) Description 10/04/2022 [facility]ill [facility] [address] [address] Leslie Howell PA-C [address] [place] [address] Visit for wound check Social History Tobacco [...] check documented in this encounter Care Teams Music Sound Light Technician Relationship Specialty Start Date End Date Janak Greer MD [address] [place] [address] PCP - General Internal Medicine 08/09/22 documented as of this encounter
--- OUTSIDE RECORDS SUMMARY | 2024-06-08 09:14 | XMS_ITS | Clinical Summary ---
Author Organization [facility] Address [address] [place] [address] Phone Care Team Providers Care Polisher Sand Name Role Phone Janak Greer MD Primary Care Provider [phone] Allergies No known active allergies Medications apixaban [...] 02/25/2020 DX:Depression Diabetes mellitus type 2, uncomplicated ([facility] V24, [facility] V28) 02/25/2020 DX:Diabetes mellitus type 2, uncomplicated (HCC) Bipolar disorder ([facility] V2 4, [facility] V28) 02/25/2020 DX:Bipolar disorder (HCC) SHAWN (obstructive sleep apnea) 02/25/2020 DX :SHAWN (obstructive sleep apnea) Severe obesity with body mas s index (BMI) of 35.0 to 39.9 with comorbidity (CMS/HCC V24, CMS/[facility] V28) 02/25/2020 DX:Severe obesity with body mass index (BMI) of 35.0 to 39.9 with comorbidity ([facility]) History of pulmonary embolus (PE) 02/25/2020 DX:History of pulmonary embolus (PE) Dyspnea 02/25/2020 DX:Dyspnea Blood clotting tendency ([facility] V24) DX:Blood clotting tendency (HCC) Diabetes mellitus ([facility] V 24, [facility] V28) DX:Diabetes mellitus (HCC) High blood [...] Maintenance Results * COLONOSCOPY Anesthesia - MAC; [facility] ENDOSCOPY (03/04/2024 8:56 AM EST) [...] Procedure Code(s): ? --- Professional --- ? 81631, Colonoscopy, flexible; diagnostic, including ? collection of specimen(s) by brushing or washing, when ? performed (separate procedure) Diagnosis Code(s): ? --- Professional --- ? Z12.11, Encounter for screening for malignant neoplasm ? of colon CPT copyright 2020 [employer]. All rights reserved. The codes documented in this report are preliminary and upon cork compounder review may be revised to meet current compliance requirements. Yovanny Harvey MD 03/04/2024 8:56:08 AM This report has been signed electronically.Yovanny Harvey MD Number of Addenda: 0 Note Initiated On: 03/04/2024 8:33 AM Scope In: Scope Out: ? Endoscopy Department at [facility] - [address] [place] [address], ? [place] [address] Procedure Note Yovanny Harvey MD - 03/04/2024 [...] retroflexion views. Procedure Code(s): --- Professional --- 09980, Colonoscopy, flexible; diagnostic, including collection of specimen(s) by brushing or washing,when performed (separate procedure) Diagnosis Code(s): --- Professional --- Z12.11, Encounter for screening for malignantneoplasm of colon CPT copyright 2020 [employer]. All rights reserved. The codes documented in this report are preliminary and upon cork compounder reviewmay be revised to meet current compliance requirements. Yovanny Harevy MD 03/04/2024 8:56:08 AM This report has been signed electronically.Yovanny Harvey MD Number of Addenda: 0 Note Initiated On: 03/04/2024 8:33 AM Scope In: Scope Out: Endoscopy Department at [facility] - [address] [place] [phone] IMPRESSION: - Diverticulosis in the sigmoid colon. [...] MEDICARE ADVANTAGE MEDICAID - [place] Care Teams Polisher Sand Relationship Specialty Start Date End Date Janak Greer MD PCP - General Internal Medicine 05/26/08
--- OUTSIDE RECORDS SUMMARY | 2024-06-08 09:14 | XMS_ITS | Encounter Summary ---
Author Organization [facility] Address [address] [place] [address] Care Team Providers Care Gear Shaper Name Role Phone Janak Greer MD Primary Care Provider [phone] Encounter Details Date Type Department Care Team (Late st Contact Info) Description 10/07/2022 Telephone [facility] [address] [place] [phone] Rommel Whyte MD [address] [place] [phone] Social History Tobacco Use Types Packs/Day Years [...] on filedocumented in this encounter Care Teams Gear Shaper Relationship Specialty Start Date End Date Janak Greer MD [address] [place] [address] PCP - General Internal Medicine 08/09/22 documented as of this encounter
--- OUTSIDE RECORDS SUMMARY | 2024-06-08 09:14 | XMS_ITS | Encounter Summary ---
Author Organization [facility] Address [address] [place] [address] Care Team Providers Care Insulation Installer Name Role Phone Janak Greer MD Primary Care Provider [phone] Encounter Details Date Type Department Care Team (Late st Contact Info) Description 09/30/2022 Refill [facility] [address] [phone] Rommel Whyte MD [address] [place] [address] [place] [phone] Chronic pain of left ankle Social History [...] ankle documented in this encounter Care Teams Insulation Installer Relationship Specialty Start Date End Date Janak Greer MD [address] [place] [address] PCP - General Internal Medicine 08/09/22 documented as of this encounter
--- OUTSIDE RECORDS SUMMARY | 2024-06-08 09:14 | XMS_ITS | Patient Health Record ---
Author Organization [facility] Address [address] [place] [phone] Care Team Providers Care Process Control Engineer Name Role Phone Caprice Staples Unavailable [phone] Reason For Referral No Information Medications Medication SIG (Take, Route, Frequency, Duration) Notes Start Date End Date Status Topiramate 50MG 1 ORAL twice daily for [facility] 04/11/19 14 Active metFORMIN HCl 500MG 1 ORAL four times da negro for [facility] 04/11/2013 Active Luz 0.05MG 1 patch to skin Transdermal TWICE WEEKLY [facility] 04/04/2013 Active Vitamin D3 5,000 IU 1 ORAL daily for [facility] 04/11/2013 Active PriLOSEC OTC 20 MG 1 tablet Orally Once a day Active Atorvastatin Calcium 80 MG 1 tablet Oral ly Once a day Active Aspirin EC 81MG 1 ORAL daily for [facility] 04/11/2013 Active Abilify 2MG 1 ORAL daily for [facility] 04/11/2013 Active Restasis 0.05 % 1 into affected eye Ophthalmic Twice a day Active Luz 0.05 MG/24HR 1 patch to skin Transdermal TWICE WEEKLY for 90 days 07/22/2014 Active LORazepam 1MG 1 ORAL three times d aily for [facility] 04/11/2013 Active glipiZIDE 5MG ORAL three times greg ly for [facility] 04/11/2013 Active Cymbalta 60MG 1 ORAL daily for [facility] 04/11/2013 Active Problems Problem Type SNOMED Code ICD Code Onset Dates Problem Status W/U Status Risk Notes Problem Type II diabetes mellitus uncontrolled (392665592) Diabetes mellitus without mention of complication, type II or unspecified type, uncontrolled (250.02) Active confirmed Diag Problem Hyperlipidemia (75662685) Other and unspecified hyperlipidemia (272.4) Active confirmed Major Problem Menopausal symptom (63890257) Symptomatic menopausal or female climacteric states (627.2) Active confirmed Diag Problem Muscle pain (00549485) Unspecified myalgia and myositis (729.1) Active confirmed Major Problem Gynecological examination normal (650826024250814) Routine gynecological examination (V72.31) Active confirmed Major Plan Of Treatment Pending Test Test Name Order Date MAMMOGRAM, SCREENING 07/22/2014 Insurance Providers Payer Name Payer Address Payer Phone Subscriber Number Group Number Insured Name Patient Relationship to Insured Coverage Start Date Coverage End Date [employer] [facility] [address] [place] [address] [phone] [id number] CHEVY WOLF Self - patient is the [...]
--- OUTSIDE RECORDS SUMMARY | 2024-06-08 09:15 | XMS_ITS | Encounter Summary ---
Author Organization [facility] Address [address] [address] Phone Care Team Providers Care Registered Dietitian Name Role Phone Janak Greer MD Primary Care Provider [phone] Encounter Details Date Type Department Care Team (Late Contact Info) Description 05/17/2021 Documentation Only [facility] [address] [place] [place] [address] Kelechi Moran MD [address] [place] [address] [place] [address] Social History Tobacco Use Types [...] Visit [facility] [address] [place] [address] Kelechi Moran MD [address] [place] [address] [place] [address] documented as of this encounter Visit Diagnoses Not on filedocumented in this encounter Care Teams Registered Dietitian Relationship Specialty Start Date End Date Janak Greer MD [address] PCP - General 12/18/18 documented as of this encounter
--- OUTSIDE RECORDS SUMMARY | 2024-06-08 09:15 | XMS_ITS | Encounter Summary ---
Author Organization [facility] Address [address] [address] Phone Care Team Providers Care Whipped Topping Finisher Name Role Phone Janak Greer MD Primary Care Provider [phone] Encounter Details Date Type Department Care Team (Late Contact Info) Description 04/01/2021 Documentation Only [facility] [address] [place] [address] Kelechi Moran MD [address] [place] [address] [place] [address] Social History Tobacco Use Types [...] Visit [facility] [address] [place] [address] Kelechi Moran MD [address] [place] [address] [place] [address] documented as of this encounter Visit Diagnoses Not on filedocumented in this encounter Care Teams Whipped Topping Finisher Relationship Specialty Start Date End Date Janak Greer MD [address] PCP - General 12/18/18 documented as of this encounter
--- OUTSIDE RECORDS SUMMARY | 2024-06-08 09:15 | XMS_ITS | Encounter Summary ---
Author Organization [facility] Address [address] [address] Phone Care Team Providers Care Child Care Provider Name Role Phone Janak Greer MD Primary Care Provider [phone] Encounter Details Date Type Department Care Team (Late Contact Info) Description 05/27/2021 Documentation Only [facility] [address] [place] [address] Kelechi Moran MD [address] [place] [address] [place] [address] Social History Tobacco Use Types [...] Visit [facility] [address] [place] [address] Kelechi Moran MD [address] [place] [address] [place] [address] documented as of this encounter Visit Diagnoses Not on filedocumented in this encounter Care Teams Child Care Provider Relationship Specialty Start Date End Date Janak Greer MD [address] PCP - General 12/18/18 documented as of this encounter
--- OUTSIDE RECORDS SUMMARY | 2024-06-08 09:15 | XMS_ITS | Clinical Summary ---
Author Organization [facility] Address [address] [place] [address] Care Team Providers Care Command And Control Officer Name Role Phone Janak Greer MD Primary Care Provider [phone] Allergies No known active allergies Medications No [...] to complete this topic Insurance Care Teams Command And Control Officer Relationship Specialty Start Date End Date Janak Greer MD [address] [place] [address] PCP - General Internal Medicine 08/09/22
--- OUTSIDE RECORDS SUMMARY | 2024-06-08 09:15 | XMS_ITS | Encounter Summary ---
Author Organization [facility] Address [address] [place] [address] Care Team Providers Care Paint Line Production Supervisor Name Role Phone Janak Greer MD Primary Care Provider [phone] Encounter Details Date Type Department Care Team (Late st Contact Info) Description 09/27/2022 Scanned Document [facility] [address] [phone] Rommel Whyte MD [address] [place] [address] Social History Tobacco Use Types Packs/Day Years [...] on filedocumented in this encounter Care Teams Paint Line Production Supervisor Relationship Specialty Start Date End Date Janak Greer MD [address] [place] [address] PCP - General Internal Medicine 08/09/22 documented as of this encounter
--- OUTSIDE RECORDS SUMMARY | 2024-06-08 09:15 | XMS_ITS | Encounter Summary ---
Author Organization [facility] Address [address] [place] [address] Care Team Providers Care Fish Net Maker Name Role Phone Janak Greer MD Primary Care Provider [phone] Encounter Details Date Type Department Care Team (Late st Contact Info) Description 09/28/2022 Telephone [facility] [address] [place] [phone] Rommel Whyte MD [address] [place] [address] Social History Tobacco Use Types Packs/Day Years [...] on filedocumented in this encounter Care Teams Fish Net Maker Relationship Specialty Start Date End Date Janak Greer MD [address] [place] [address] PCP - General Internal Medicine 08/09/22 documented as of this encounter
--- OUTSIDE RECORDS SUMMARY | 2024-06-08 09:15 | XMS_ITS | Encounter Summary ---
Author Organization [facility] Address [address] [address] Phone Care Team Providers Care Converter Supervisor Name Role Phone Janak Greer MD Primary Care Provider [phone] Encounter Details Date Type Department Care Team (Late Contact Info) Description 05/20/2021 Documentation Only [facility] [address] [place] [address] Kelechi Moran MD [address] [place] [address] [place] [address] Social History Tobacco Use Types [...] [facility] [address] [place] [address] Kelechi Moran MD [address] [place] [address] [place] [address] documented as of this encounter Visit Diagnoses Not on filedocumented in this encounter Care Teams Converter Supervisor Relationship Specialty Start Date End Date Janak Greer MD [address] PCP - General 12/18/18 documented as of this encounter
--- OUTSIDE RECORDS SUMMARY | 2024-06-08 09:15 | XMS_ITS | Encounter Summary ---
Author Organization [facility] Address [address] [address] Phone Care Team Providers Care Direct Mail Manager Name Role Phone Janak Greer MD Primary Care Provider [phone] Reason for Visit * Reason Comments New Med Request Encounter Details Date Type Department Care Team (Late Contact Info) Description 04/12/2022 Refill [facility] [address] [place] [address] Kelechi Moran MD [address] [place] [address] [place] [address] Social History Tobacco Use Types [...] Visit [facility] [address] [place] [address] Kelechi Moran MD [address] [place] [address] [place] [address] documented as of this encounter Visit Diagnoses Not on filedocumented in this encounter Care Teams Direct Mail Manager Relationship Specialty Start Date End Date Janak Greer MD [address] PCP - General 12/18/18 documented as of this encounter
--- OUTSIDE RECORDS SUMMARY | 2024-06-08 09:15 | XMS_ITS | Encounter Summary ---
Author Organization [facility] Address [address] [address] Phone Care Team Providers Care Lead Business Systems Analyst Name Role Phone Janak Greer MD Primary Care Provider [phone] Encounter Details Date Type Department Care Team (Late Contact Info) Description 02/26/2021 Documentation Only [facility] [address] [place] [address] Kelechi Moran MD [address] [place] [address] [place] [address] Social History Tobacco Use Types [...] Visit [facility] [address] [place] [address] Kelechi Moran MD [address] [place] [address] [place] [address] documented as of this encounter Visit Diagnoses Not on filedocumented in this encounter Care Teams Lead Business Systems Analyst Relationship Specialty Start Date End Date Janak Greer MD [address] PCP - General 12/18/18 documented as of this encounter
--- OUTSIDE RECORDS SUMMARY | 2024-06-08 09:15 | XMS_ITS | Clinical Summary ---
Author Organization [facility] Address [address] [place] [address] Care Team Providers Care Chefs Name Role Phone Janak Greer MD Primary Care Provider [phone] Allergies No known active allergies Medications Medication [...] 0 05/13/2019 Act kay Continuous Blood Gluc Electronic Pagination System Operator (FreeStyle Joseph 14 Day [place]) PABLO 0 01/29/2019 Active Continuous Blood Gluc [...] Quadrivalent) 0.5 ML ROSE MARIE Flucelvax Quad [id number] (PF) 60 mcg (15 mcg x 4)/0.5 [...] ambreen lite 0 Active Continuous Blood Gluc Electronic Pagination System Operator (FreeStyle Joseph 14 Day [place]) PABLO FreeStyle Joseph 14 Day [place] 0 Active Lancets (freestyle) lancets FreeStyle Joseph [...] age to complete this topic Care Teams Chefs Relationship Specialty Start Date End Date Janak Greer MD [address] [place] [address] PCP - General Internal Medicine 12/27/18
--- OUTSIDE RECORDS SUMMARY | 2024-06-08 09:15 | XMS_ITS | Data Portability ---
Author Organization [place] [facility] Franca Grullon AONE Bridger Address [address] [place] [address] Care Team Providers Care Print Designer Name Role Phone ANUSHA VOGEL Primary Care Provider [phone] ANUSHA VOGEL Primary Care Provider [phone] Assessment Encounter Date Assessment Date Assessment LastModified [...] In the meantime she will continue with fkbr-nad-amtcpox pain medication. We will set up the [...] degrees. The knee is stable within that tuvbb-dg-bnfzox to AP and ML stress. The alignment [...] is intact. MRI: Left wrist performed at [facility] April 05, 2023 reveals equivocal subluxation [...] degrees. The knee is stable within that fgpjx-wd-ptnmsj to AP and ML stress. The alignment [...] for right total knee replacement, robotic assisted, [place] joint replacement [place]. Not available 05/26/2023 10:08:43 Plan of Treatment Reminders Order Date Submit Date Provider Last Modified By Organization Details Last Modified Time Details Appointments None recorded. Lab None recorded. Referral None recorded. Procedures None recorded. Surgeries total knee arthroplast y (SURG) 2023 024 [email or web address] 0 Not available 10:19:12 Imaging XR, knee, 4 or more view 2023 024 [email or web address] [facility], [address], [place], [address], 11:11:12 MRI, wrist, w/o contrast - Evaluate ECU/sixth extensor compartment for tenosynovit is.Please call patient to schedule and hand carry CD 2023 024 [email or web address], [address] [place], [address], 09:42:37 Medication Orders None recorded. Patient TargetsNo targets recorded. Patient Instructions Encounter Date Encounter Id Patient Instructions Last Modified By Organization Details Last Modified Time 03/24/2023 [id number] AP, lateral, Melchor, and patellar view radiographs of the right knee taken today demonstrate right knee degenerative joint disease with joint space narrowing, osteophyte formation, and subchondral sclerosis. there is rdta-as-xljf articulation in the medial compartment. Not available 03/24/2023 11:00:11 Reason for Referral None Reported. Results Created Date Observation Date Name Description Value Unit Range Abnormal Flag Note LastModifiedBy Organization Detail LastModifiedTime 04/18/19 24 04/05/2023 MRI, wrist , w/o contr ast No observ ation record ed. [email or web address] [facility] [address] [place], [address], 04/18/2023 15:46:48 04/27/19 MRI, wrist , w/o contr ast No observ ation record ed. [email or web address] [facility] [address] [place], [address], 04/27/2023 08:42:31 Result Notes None recorded. 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 372140399 Active 2022 Dallin Lima MD [address], [facility], [address], [place] [facility], P 3 17:40:16 Arthritis of first carpometaca rpal joint of left hand 9166776180219 103 Active 2022 Dallin Lima MD [address], [facility], [address], [place] [facility], [facility] 3 17:40:30 Instability of joint of right knee 2929638434386 102 Active 2022 TERESA SHINE PA-C [address], [place], [address], [place] [facility], P 3 09:18:55 Effusion of joint of right knee 0096055284388 04 Active 2022 TERESA SHINE PA-C [address], [place], [address], [place] [facility], P 3 10:05:35 Osteoarthri tis of right knee joint 4536800372616 00 Active 2022 TERESA SHINE PA-C [address], [place], [address], [place] [facility], [facility] 3 12:46:54 Problem Notes None recorded. Procedures Surgical History Date Name Laterality Status Provider Name and Address Organization Details Recorded Time 02/22/19 24 AONE tendon sheath cortisone injection completed Dallin Lima MD [address], [place], [address], [place] [facility] 02/22/2023 10:43:39 12/30/19 23 Knee Joint/Bursa Asp & Inj completed TERESA SHINE PA-C [address], [place], [address], [place] [facility] 12/29/2022 10:03:04 12/21/19 23 Knee Joint/Bursa Asp & Inj completed TERESA SHINE PA-C [address], [place], [address], [place] [facility] 12/20/2022 13:29:41 09/16/19 23 Knee Joint/Bursa Asp & Inj completed TERESA SHINE PA-C [address], [place], [address], [place] [facility] 09/15/2022 07:52:52 08/25/19 23 AONE tendon sheath cortisone injection completed Dallin Lima MD [address], [place], [address], [place] [facility] 08/24/2022 12:40:55 06/21/19 23 Knee Joint/Bursa Asp & Inj completed TERESA SHINE PA-C [address] [facility],[address], [place], [address], [place] [facility] 06/19/2022 23:48:21 hysterectomy completed [facility] [place] [facility] 12/29/2022 08:44:02 procedure on urinary bladder completed [facility] [place] [facility] 12/29/2022 08:44:53 procedure on shoulder completed [facility] [place] [facility] 12/29/2022 08:45:08 hernia repair completed [facility] [place] [facility] 12/29/2022 08:45:14 Imaging Results Imaging Date Name Status LastModified by Organiz ation Details LastModified Time 04/05/2023 MRI, wrist, w/o contrast completed [email or web address] [facility] [address] [place], [address], 04/18/2023 15:46:48 04/27/2023 MRI, wrist, w/o contrast completed [email or web address] [facility] [address] [place], [address], 04/27/2023 08:42:31 Procedure Notes None recorded. Medical [...] Updated DateTime 03/24/2023 162.56 cm 45.3 kg/m2 632312.[address] [place] [facility] 03/24/2023 10:44:14 Date Recorded Body height Body mass index (BMI) Body weight Provider Name and Address Organization Details Last Updated DateTime 05/26/2023 162.56 cm 44.3 kg/m2 665414.[address] [place] [facility] 05/26/2023 09:56:04 Social History Question Answer Notes LastModified by Organizat ion Details LastModified Time Tobacco Smoking Status Former Smoker Beatriz gottlieb, [place] [facility] 12/29/2022 08:46:38 What Is Your Level [...] Anemia N Brain Injury N Heart Attack ([place]) N Osteopenia N Diabetes Y Bleeding Disorder [...] Code Diagnosis Note [id number] MD BRANDEN Curran [address] [address] 06/08/2022 11:44:59 06/08/2022 12:08:20 Extensor tenosynovitis of wrist 581368020 M65.839 8760 MD [facility] [address] [place] [address] 06/20/2022 11:03:15 06/20/2022 11:48:20 Pain of right knee joint 7726523262 10577 M25.561 Osteoarthr itis of right knee joint 8720258697 23239 M17.11 [id number] MD BRANDEN Curran [address] [address] 06/29/2022 10:05:38 06/29/2022 11:00:28 Pain of left wrist 7859486642 28589 M25.532 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 2560247551 99198 G56.02 [id number] MD BRANDEN Curran [address] [address] 08/03/2022 10:36:47 08/03/2022 11:31:14 Extensor tenosynovitis of wrist 814055159 M65.839 Arthritis of first carpometacarpal joint of left hand 1545236567 944014 M13.842 [id number] MD BRANDEN Curran [address] [address] 08/24/2022 11:23:15 08/24/2022 11:57:21 Extensor tenosynovitis of wrist 298141271 M65.839 Left ECU 77970 MD BRANDEN Santiagosingh crump 299 [facility] [address] [facility] [place] [address] 09/15/2022 10:34:27 09/15/2022 11:35:33 Osteoarthritis of right knee joint 5202220676 09262 M17.11 [id number] MD BRANDEN Santiagosingh [address] [address] 12/20/2022 09:13:41 12/20/2022 10:01:14 Osteoarthritis of right knee joint 0032490845 92794 M17.11 [id number] MD [facility] [address] [address] 12/29/2022 08:17:47 12/29/2022 09:01:45 Osteoarthritis of right knee joint 3464012362 17781 M17.11 Instabilit y of joint of right knee 2596844864 609241 M25.361 Effusion o f joint of right knee 4118577078 14024 M25.461 Right knee joint effusion [id number] MD BRANDEN Santiagosingh [address] [address] 01/03/2023 14:25:07 01/03/2023 15:04:47 Instability of joint of right knee 3979030423 715259 M25.361 Nonbillabl e visit [id number] MD [facility] [address] [address] 01/11/2023 10:36:20 01/11/2023 11:21:09 Instability of joint of right knee 2881924948 119779 M25.361 Osteoarthr itis of right knee joint 3811730538 47772 M17.11 [id number] MD BRANDEN Curran [address] [address] 02/22/2023 09:50:34 02/22/2023 10:26:40 Extensor tenosynovitis of wrist 122789249 M65.839 Left ECU 94308 MD BRANDEN Santiago [address] [address] 03/16/2023 10:50:05 03/16/2023 11:32:54 Osteoarthritis of right knee joint 4772244521 35306 M17.11 [id number] Malia Mehta BRANDEN Nora [address] [address] 03/22/2023 11:22:58 03/22/2023 11:37:45 Synovitis and tenosynovitis of joint of wrist 6354684067 M67.834 Left ECU [id number] MD BRANDEN [facility] [address] [place] [address] 03/24/2023 10:25:15 03/24/2023 10:59:45 Pain of right knee joint 5142333099 28953 M25.561 Osteoarthr itis of right knee joint 0201352728 30480 M17.11 [id number] MD BRANDEN Curran Nora [address] [address] 04/19/2023 11:05:25 04/19/2023 11:34:04 Extensor tenosynovitis of wrist 098739441 M65.839 Left ECU 44124 MD BRANDEN Santiago [facility] [address] [place] [address] 05/26/2023 09:16:00 05/26/2023 10:12:04 Osteoarthritis of right knee joint 5753822262 34123 M17.11 Arthritis of knee 282349 002 M13.869 Health Concerns Section Related Observation LastModified by Organization Detai ls LastModified Time None Recorded Concern Status LastModified by Organization Details LastModified Time None Recorded Advance Directives Directive None Recorded Payers Encounter Date Sequence Insurance Name Policy Number Policy Azul Covered Member ID Azul Member ID Guarantor Name 03/16/2023 1 [employer] [place] [employer] MED[employer] ADVANTAGE [facility] (MEDICARE REPLACEMENT HMO) [id number] Esperanza Dean [id number] Esperanza Dean 03/16/2023 2 [place] [facility] Esperanza Dean [id number] Esperanza Dean 03/22/2023 1 [employer] [place] MEDIC[employer] ADVANTAGE PLAN (MEDICARE REPLACEMENT HMO) [id number] Esperanza Dean [id number] Esperanza Dean 03/24/2023 1 [employer] [place] [employer] ADVANTAGE PLAN (MEDICARE REPLACEMENT HMO) [id number] Esperanza Dean [id number] Esperanzamurtaza Loveelin 03/24/2023 2 [place] [facility] Esperanza Dean [id number] Esperanzamurtaza Dean 04/19/2023 1 [employer] [place] MEDIC[employer] ADVANTAGE PLAN (MEDICARE REPLACEMENT HMO) [id number] Esperanza Dean [id number] Esperanzafaheem LoveDianne 05/26/2023 1 [employer] [place] [employer] MEDIC[employer] ADVANTAGE PLAN (MEDICARE REPLACEMENT HMO) [id number] Esperanza Dean [id number] Esperanzafaheem LoveDianne 05/26/2023 2 [place] [facility] Esperanza Loveelin [id number] Esperanza Loveelin Notes Date Note Type Note [...] she is on Eliquis. TERESA SHINE PA-C [address] [place] [address], [address], [place] [facility] 03/16/2023 12:32:58 OBGyn Episode No OBEpisode recorded.
--- OUTSIDE RECORDS SUMMARY | 2024-06-08 09:15 | XMS_ITS | Clinical Summary ---
Author Organization [facility], Address [address] [place] [address] [place] [address] Phone Care Team Providers Care Filler Shaker Name Role Phone Janak Greer MD Primary Care Provider [phone] Allergies No known active allergies Medications aspirin (ST JULI) 81 MG EC tablet Take 1 tablet by mouth 1 (one) time each day Active Multiple Vitamins-Overlock Operator als (CENTRUM SILVER PO) Take 1 tablet [...] MG tablet 9 Active Continuous Blood Gluc Tow Driver (FREESTYLE KAPIL 14 DAY READER) device 9 [...] Visit [facility], [address] [place] [address] Kelechi Moran MD [address] [place] [phone] Health Maintenance Due Date Last Done Comments [...] this topic Insurance Medicaid [place] Care Teams Filler Shaker Relationship Specialty Start Date End Date Janak Greer MD [address] PCP - General 12/18/18
--- OUTSIDE RECORDS SUMMARY | 2024-06-08 09:15 | XMS_ITS | Data Portability ---
Author Organization [place] - [facility], Allergy Address [address] [address] Care Team Providers Care Inside Sales Engineer Name Role Phone LELAANUSHA Primary Care Provider [...] in 1-2 weeks as scheduled for reevaluation. [email or web address] Not available 08/10/2023 16:45:14 09/28/2023 09/28/2023 Patient [...] sinuses, w/o contrast 2023 [facility], [address] [place], [address], 4 14:09:46 Medication Orders doxycyclin e hyclate 100 mg capsule 2023 [id number] [phone] [place], [address], 4 11:38:28 fluticason e propionate 50 mcg/actuat ion nasal spray,susp ension 2023 024 [facility]/Pharmacy #[id number], [phone] [place], [address], 4 12:08:06 Patient TargetsNo targets recorded. Patient [...] No observ ation record ed. [email or web address] [facility] [address], [address], 07/24/2023 12:41:01 07/26/19 24 audio gram No observ ation record ed. BARCODE Not Available 2023 12:46:02 08/08/19 24 07/24/2023 CT, sinus es, w/o contr ast No observ ation record ed. [facility] [address], [address], 08/08/2023 22:58:50 Result Notes None recorded. Problems Name Problem SNOMED Code Status Onset Date Resolution Date Notes Provider Name and Address Organization Details Recorded Time Benign paroxysma l positiona l vertigo 912642262 Active 2020 Benign paroxysma l vertigo, unspecifi ed ear; Note: Date Diagnosed : 04/14/2020 10:02 AM (H81.10) Not Available [facility] 4 02:26:19 Otorrhagi a of right ear 09714190956 00138 Active 2022 Otorrhagi a, right ear; Note: Date Diagnosed : 06/14/2022 2:51 PM (H92.21) Not Available [facility] 4 02:26:40 Disturban ce of salivary secretion 95152379 Active 2021 Xerostomi a; Note: Date Diagnosed : 09/30/2021 11:57 AM (K11.7) Not Available [facility] 4 02:26:26 Bilateral temporoma ndibular joint pain 42380063618 234968 Active 2022 Arthralgi a of bilateral temporoma ndibular joint; Note: Date Diagnosed : 05/10/2022 2:35 PM (M26.623) Arthral justin of bilateral temporoma ndibular joint; Note: Date Diagnosed : 04/14/2020 10:02 AM (M26.623) ; Start Date : Not Available [facility] 4 02:26:33 Gastroeso phageal reflux disease without esophagit is 168776212 Active 2021 Gastro-es ophageal reflux disease without esophagit is; Note: Date Diagnosed : 04/15/2021 10:11 AM (K21.9) Not Available [facility] 4 02:26:18 Sensorine ural hearing loss of bilateral ears 879274937 Active 2020 Sensorine ural hearing loss, bilateral ; Note: Date Diagnosed : 04/14/2020 10:03 AM (H90.3) Not Available [facility] 4 02:26:31 Allergic rhinitis caused by pollen 54704800 Active 2021 Allergic rhinitis due to pollen; Note: Date Diagnosed : 09/30/2021 11:57 AM (J30.1) Not Available [facility] 4 02:26:46 Bleeding from nose 315834138 Active 2022 Epistaxis ; Note: Date Diagnosed : 05/10/2022 2:35 PM (R04.0) Not Available [facility] 4 02:26:44 Chronic sinusitis 42787226 Active 2023 ELENITA KANG MD [address] [place] [address], [place], [address] , [facility] 4 21:08:07 Deviated nasal septum 011591513 Active 2023 ELENITA KANG MD 100 [facility], [place], [address] , [place] [facility] 4 21:08:13 Abnormal auditory perceptio n 69122629 Active 2023 ELENITA KANG MD 100 [facility] [place] [address], [place], [address] , [place] [facility] 4 12:02:38 Chronic left maxillary sinusitis 34909247251 201526 Active 2023 ELENITA KANG MD 100 [facility],[place] [address], [place], [address] , [place] [facility] 4 14:04:57 Obstructi ve sleep apnea syndrome 64583081 Active 2023 ELENITA KANG MD 100 [facility],[place] [address], [place], [address] , [place] [facility] 4 14:22:09 Chronic maxillary sinusitis 15055435 Active 2023 Chronic maxillary sinusitis ; Note: Date Diagnosed : 06/12/2023 11:15 AM (J32.0) Not Available [facility] 4 02:26:21 Acute maxillary sinusitis 75764973 Active 2023 Acute maxillary sinusitis , unspecifi ed; Note: Date Diagnosed : 04/25/2023 11:27 AM (J01.00) Not Available [facility] 4 02:26:24 Problem Notes None recorded. Procedures Surgical History Date Name Laterality Status Provider Name and Address Organization Details Recorded Time 01/08/20 24 NasalEndoscopy_DP completed MARVIN CHEUNG PA-C 100 [facility],[place] [address], [place], [address], [facility] 01/08/2024 12:45:15 09/28/19 24 JMSNasal/Sinus Endoscopy-PRIOR surgical cavities completed ELENITA MONTANO MD 100 [facility] [address], [place], [address], [place] [facility] [place] 09/28/2023 12:07:20 08/25/19 24 JMSNasal/Sinus Endoscopy-DEBRIDE MENT completed ELENITA MONTANO MD [address], [address], [facility] [place] 08/25/2023 14:20:40 08/10/19 24 JMSNasal/Sinus Endoscopy-DEBRIDE MENT completed RAMYA BHATTI PA-C [address], [address], [facility] [place] 08/10/2023 16:43:40 08/08/19 24 ENDOSCOPY, NASAL/SINUS W/ PARTIAL ETHMOIDECTOMY (SURG) completed Nacho Aldana [place] - [facility] 08/11/2023 13:52:45 07/24/19 24 JMSNasal/Sinus Endoscopy completed ELENITA MONTANO MD [address] [place] [address], [address], [facility] - [facility] 07/24/2023 12:01:33 07/24/19 24 SRT & Tymps ([address] & [address]5769) completed Leah Donaldson [place] - [facility] 07/24/2023 12:28:03 Imaging Results Imaging Date Name Status LastModified by Organiz ation Details LastModified Time 07/24/2023 CT, sinuses, w/o contrast completed [facility] [address], [address], 07/24/2023 12:41:01 07/26/2023 audiogram completed [facility] Information no t available 07/26/2023 12:46:02 07/24/2023 CT, sinuses, w/o contrast completed [facility] [address], [address], 08/08/2023 22:58:50 Procedure Notes None recorded. Medical [...] mg tablet 09/30 completed Medicati on ID: [id number] B rand Name: furosemi de Send Method: E-Prescr ibed Sub s Allowed: subs OK Medic ationGen ericName : furosemi de Not Available Not Available Not Available Miralax 17 gram/dose oral powder 09/30 completed Medicati on ID: [id number] B rand Name: Miralax Send Method: E-Prescr [...] pack Take 06/11 completed Medicati on ID: [id number] P rescribe d By Name: Joleen Cruz MD Brand Name: Medrol (Jeff) Se nd Method: E-Prescr ibed Sub s Allowed: subs OK Rauli al Instruct ion: take as instruct ed Medic ationGen ericName : Medrol (Jeff) Not Available Not Available Not Available prednison e 20 mg tablet by mouth 2023 active Medicati on ID: [id number] B rand Name: predniso ne Send Method: [...] tended release 09/30 completed Medicati on ID: [id number] B rand Name: Tylenol Arthriti s Pain [...] mg tablet 09/30 completed Medicati on ID: 216205 B rand Name: oxcarbaz epine Se nd Method: E-Prescr ibed Sub s Allowed: subs OK Medic ationGen ericName : oxcarbaz epine Not Available Not Available Not Available acetamino phen 300 mg-codein e 30 mg tablet active Medicati on ID: 317704 B rand Name: acetamin ophen-co deine Se [...] mcg tablet 09/30 completed Medicati on ID: 246070 B rand Name: levothyr oxine Se nd Method: E-Prescr ibed Sub s Allowed: subs OK Medic ationGen ericName : levothyr oxine Not Available Not Available Not Available hydrocort isone 2.5 % topical cream with perineal applicato r 06/11 completed Medicati on ID: 604523 B rand Name: hydrocor tisone S end [...] 100 mg tablet active Medicati on ID: 213757 B rand Name: trazodon e Send Method: E-Prescr ibed Sub s Allowed: subs OK Medic ationGen ericName : trazodon e Medica tion ID: [id number] B rand Name: trazodon e Send Method: E-Prescr ibed Sub s Allowed: subs OK Medic ationGen ericName : trazodon e Not Available Not Available Not Available benzonata te 100 mg capsule TAKE 1 CAPSULE BY MOUTH THREE TIMES A DAY FOR 3 DAYS active Not Available Not Available No t Available levothyro xine 50 mcg tablet active Medicati on ID: 178772 B rand Name: levothyr oxine Se nd Method: E-Prescr ibed Sub s Allowed: subs OK Medic ationGen ericName : levothyr oxine Not Available Not Available Not Available cephalexi n 500 mg capsule TAKE 1 CAPSULE BY MOUTH FOUR TIMES A DAY active Not Available Not Available No t Available tacrolimu s 0.1 % topical ointment 06/11 completed Medicati on ID: [id number] B rand Name: tacrolim us Send Method: [...] mg tablet 06/11 completed Medicati on ID: [id number] B rand Name: hydroxyz ine HCl Send [...] nasal spray 09/30 completed Medicati on ID: [id number] B rand Name: azelasti ne Send Method: [...] unit) tablet 09/30 completed Medicati on ID: [id number] B rand Name: Vitamin D3 Send Method: E-Prescr ibed Sub s Allowed: subs OK Medic [facility] ericName : Vitamin D3 Not Available [...] as directed 2022 active Medicati on ID: [id number] D uration Value: 14 Brand Name: Ciprodex Send Method: E-Prescr ibed Sub s Allowed: subs OK [facility] Not Available Not Available Not Available escitalop brittany 5 mg tablet TAKE 1 TABLET BY MOUTH ONCE DAILY. TAKE TOGETHER WITH 20 MG FOR TOTAL OF 25 MG PER DAY active Not Available Not Available No t Available Cinnamon 500 mg capsule 09/30 completed Medicati on ID: [id number] B rand Name: Cinnamon Send Method: E-Prescr ibed Sub s Allowed: subs OK [facility] Cinnamon Not Available Not [...] mcg tablet 09/30 completed Medicati on ID: [id number] B rand Name: Centrum Silver Women Se [...] ous pen injector active Medicati on ID: 330060 B rand Name: Иван Send Method: E-Prescr [...] Updated DateTime 08/10/2023 162.56 cm 43.9 kg/m2 087745.65 g Deborah Godfrey [place] - [facility] 08/10/2023 15:56:40 Date Recorded Body height Provider Name an d Address Organization Details Last Updated DateTime 08/25/2023 162.56 cm Jacob Bishop [place] - [facility] 08/25/2023 14:03:50 Date Recorded Body height Body mass index (BMI) Body weight Provider Name and Address Organization Details Last Updated DateTime 09/28/2023 162.56 cm 43.4 kg/m2 394234.87 g Jacob Bishop [place] - [facility] 09/28/2023 11:59:23 Date Recorded Body height Body mass index (BMI) Body weight Provider Name and Address Organization Details Last Updated DateTime 07/24/2023 162.56 cm 43.9 kg/m2 370794.65 g Jacob Bishop [place] - [facility] 07/24/2023 11:37:39 Social History None recorded. Functional Status None recorded. Mental Status None recorded. Family History Nothing Reported. Medical History Condition Response Diabetes Y Anxiety Y Sleep Disorder Y GERD/Reflux Y High Cholesterol Y Thyroid Problems Y Hypertension Y Depression Y Gynecological HistoryNo gynecological history recorded. Obstetrics History GPAL:G 0 P 0 0 0 0 Past Encounters Encounter ID Performer Location Encounter Start Date Encounter Closed Date Diagnosis/Indication Diagnosis SNOMED-CT Code Diagnosis ICD10 Code Diagnosis Note [id number] ELENITA KANG MD [facility] [address] [address] 07/24/2023 10:58:36 07/24/2023 13:19:59 Chronic sinusitis 03708482 J32.9 J32.8 Because of increased symptoms on [...] handout was given Deviated nasal septum 12 0253806 J34.2 Abnormal a uditory perception 59179934 H93.293 Tymp and SRT reviewedA speech awareness threshold test, tympanomet ry, and distortion product otoacousti c emission test were performed. Results are as follows: Speech Awareness/ [employer] Test: Right Ear:{{with in normal limits 0 [...] seal}} [id number] MIKE MONTOYA MD [facility] [address] [address] 08/10/2023 15:42:46 08/10/2023 16:16:37 Chronic sinusitis 50586050 J32.8 Postoperative visit 1836 70715 Z48.89 [id number] ELENITA KANG MD [facility] 100 [place] [address] 08/25/2023 13:59:35 08/25/2023 14:34:07 Chronic left maxillary sinusitis 1252179757 4086766 J32.0 No residual infection. Debridemen t performed. Suggest gentle irrigation to avoid ear symptoms. Burning mouth has improved. She can take some probiotics . Follow-up 4 weeks. Abnormal a uditory perception 14058235 H93.293 No fluid Obstructiv e sleep apnea syndrome 04464302 G47.33 Resume CPAP [id number] ELENITA KANG MD [facility] 100 [place] [address] 09/28/2023 11:30:17 09/28/2023 12:14:30 Chronic left maxillary sinusitis 9224081966 7189924 J32.0 No residual infection. Debridemen t performed. Suggest gentle irrigation to avoid ear symptoms. Burning mouth has improved. She can take some probiotics . Follow-up 4 weeks. Deviated nasal septum 12 0932662 J34.2 [id number] GARRY LINK MD [facility] 100 [place] [address] 01/08/2024 10:59:57 01/08/2024 11:42:28 Deviated nasal septum 621012990 J34.2 right Chronic le ft maxillary sinusitis 7198435171 3873772 J32.0 Health Concerns Section Related Observation LastModified by Organization Detai ls LastModified Time None Recorded Concern Status LastModified by Organization Details LastModified Time None Recorded Advance Directives Directive None Recorded Payers Encounter Date Sequence Insurance Name Policy Number Policy Azul Covered Member ID Azul Member ID Guarantor Name 07/24/2023 2 [place] [facility] Esperanza Mónica Dianne [id number] Esperanza M Dianne 07/24/2023 1 [place] [id number] [employer]per[employer]amur[employer] Sales Dianne [id number] Esperanza M Dianne 08/10/2023 2 [place] [facility] Esperanza M Dianne [id number] Esperanza M Dianne 08/10/2023 1 [place] [address] Esperanza M M Dianne [id number] Esperanza M Dianne 08/25/2023 2 [place] [facility] Esperanza Mónica Dianne [id number] Esperanza M Dianne 08/25/2023 1 [place] [address] Esperanza Mónica M Dianne [id number] Esperanza M Dianne 09/28/2023 2 [place] [facility] Esperanza M Dianne [id number] Esperanza M Dianne 09/28/2023 1 [place] [address] Esperanza Sales M Dianne [id number] Esperanza M Dianne 01/08/2024 2 [place] [facility] Esperanza M Dianne [id number] Esperanza M Dianne 01/08/2024 1 [place] [address] Esperanza Sales M Dianne [id number] Esperanza M Dianne Notes Date Note Type Note Provider Name and Address Organization Details Recorded Time 07/24/2023 text/html No change with prednisone or abx. Still has facial pressure and ear fullness L > R prior [id number] with chronic left maxillary sinusitis. Symptoms started [...] endoscopic sinus surgery. ELENITA MONTANO MD 100 [facility],[address], [address], [facility] 07/24/2023 12:45:01 08/10/2023 text/html 62-year-old fema le presents status post left maxillary antrostomy with sigifredo bullosa resection on 08/08/[address] Montano. She is doing well postoperatively. Currently on amoxicillin. MIKE MONTOYA MD 100 [facility],[address], [address], [facility] 08/10/2023 17:13:02 08/25/2023 text/html Patient seen following endoscopic surgery she is August 07. She still has some left facial pressure, ear fullness and nasal discharge. No HL. Smell and taste ok. Been irrigating twice daily and using saline solution 3-4 times per day. Finished abx but got burning. No thrush. Holding CPAP ELENITA MONTANO MD 100 [facility] 100, [place], [address], [facility] 08/25/2023 14:22:37 09/28/2023 text/html Patient with chronic sinusitis status post left-sided surgery. She has a known rightward septal deviation and had mild sinus thickening on that side. We elected to proceed with left-sided surgery only. She notes significant improvement and just a little bit of congestion in the morning. ELENITA MONTANO MD 100 [facility],[place] [address], [place], [address], [place] [facility] 09/28/2023 12:08:38 01/08/2024 text/html 63 year old [...] offer some relief. GARRY LINK MD 100 [facility] 100, [place], [address], [place] [facility] 01/08/2024 21:13:08 OBGyn Episode No OBEpisode recorded.
[2024-06-08 09:26] LABS: MANUAL DIFF FLAG NO
[2024-06-08 10:20] LABS: Basophils Absolute Auto 0.1 X10*3/uL (0.0-0.2); Basophils Percent Auto 0.9 % (0-2); Eosinophils Absolute Auto 0.2 X10*3/uL (0.0-0.4); Eosinophils Percent Auto 2.2 % (0-4); Hematocrit 32.8 % (37.0-47.0); Hemoglobin 10.8 g/dl (12.0-16.0); Imm Gran Abs Auto 0.03 X10*3/uL (0.00-0.03); Imm Gran Pct Auto 0.4 % (0.0-0.4); Lymphocytes Absolute Auto 1.6 X10*3/uL (1.2-4.9); Lymphocytes Percent Auto 20.1 % (20-40); Mean Corpuscular HGB Conc 32.9 g/dl (31.0-35.0); Mean Corpuscular Hemoglobin 29.7 pg (27.0-33.0); Mean Corpuscular Volume 90.1 fL (80.0-98.0); Mean Platelet Volume 10.1 fL (9.4-12.3); Monocytes Absolute Auto 0.5 X10*3/uL (0.1-1.2); Monocytes Percent Auto 6.2 % (2-11); Neutrophils Absolute Auto 5.4 x10*3/uL (2.0-8.3); Neutrophils Percent Auto 70.2 % (45-73); Platelet Count 301 X10*3/uL (160-400); Red Blood Count 3.64 X10*6/uL (4.20-5.50); Red Cell Distribution Width 12.8 % (11.0-16.0); White Blood Count 7.8 X10*3/uL (4.8-10.8)
[2024-06-08 10:31] LABS: Estimated Average Glucose 120 mg/dL; Hemoglobin A1C 120.2508 umol/L; Hemoglobin A1c % 5.8 % (<6.0); Total Hemoglobin (HGBA1C) 2979.3433 umol/L
[2024-06-08 11:04] LABS: Anion Gap 11 (12-20)
[2024-06-08 11:13] LABS: Alanine Aminotransferase 23 U/L (0-31); Alkaline Phosphatase 98 U/L (39-117); Aspartate Amino Transferase 21 U/L (5-31); Bilirubin Total 0.2 mg/dL (0.0-1.0); Blood Urea Nitrogen 40 mg/dL (9-16); C Reactive Protein 0.44 mg/dL (< or = 0.50); Calcium 9.4 mg/dL (8.4-10.2); Carbon Dioxide 26 mmol/L (22-29); Chloride 105 mmol/L (96-108); Cholesterol 198 mg/dL (<200); Estimated Glomerular Filt Rate 31; Glucose Random 86 mg/dL (60-115); HDL Cholesterol 66 mg/dL (>40); Iron 50 mcg/dL (30-160); LDL Cholesterol Calculated 115 mg/dL (<100); Percent Iron Saturation 26 % (15-50); Potassium 4.2 mmol/L (3.3-5.1); Sodium 138 mmol/L (135-145); Total Iron Binding Capacity 196 mcg/dL (228-428); Total Protein 6.8 g/dL (6.5-8.0); Triglycerides 88 mg/dL (<150); Unsaturated Iron Binding 146 ug/dL
[2024-06-08 11:38] LABS: Folate 18.1 ng/mL (> or = 4.0); Vitamin B12 500 pg/mL (200-900)
[2024-06-08 11:42] LABS: Ferritin 142 ng/mL (10-250); TSH reflex Free T4 0.82 uIU/mL (0.32-4.0); Vitamin D 25-OH Total 31.3 ng/mL (>30)
[2024-06-08 12:08] LABS: Insulin 30 uU/mL (2-29)
[2024-06-11 13:43] LABS: Zinc 77 mcg/dL (60-130)
[2024-06-12 01:03] LABS: Vitamin A 117 mcg/dL (38-98)
[2024-06-15 16:28] LABS: Vitamin B1 12 nmol/L (8-30)
== END 2024-06-08 09:12 | disposition home or self-care (01) ==
LOC: HO.LAB 09:11
PROVIDERS: PCP Internal Medicine; Visit Provider Surgery
DX: E66.01 Morbid (severe) obesity due to excess calories (principal); E11.9 Type 2 diabetes mellitus without complications; Z79.4 Long term (current) use of insulin; K21.9 Gastro-esophageal reflux disease without esophagitis; G47.30 Sleep apnea, unspecified; J45.909 Unspecified asthma, uncomplicated; E03.9 Hypothyroidism, unspecified
CPT/HCPCS: 80053; 80061; 82306; 82607; 82728; 82746; 83036; 83525; 83540; 84425; 84443; 84590; 84630; 85025; 86140

== ENCOUNTER 2024-06-12 10:47 | Outpatient (AMB) | payer MEDICARE, MEDICAID, SELFPAY ==
[2024-06-12 10:55] VITALS: BMI 40.7
--- NOTE | 2024-06-12 10:55 | MHC.OFFVIS ---
Vital Signs 06/12/24 10:55 Height 5 ft 4 in Weight 237 lb BMI 40.7 Intake Visit Reasons: OV-R TKA w/DR 10/30/23-end of May Intake Note: Esperanza is a 63 year old female who presents today for a follow up of her right knee s/p Right TKA 10/30/23. Patient reports she is doing great. She continues with her home exercise program. She does not take any medicines for her discomfort. She denies any fevers or chills. Allergies No Known Allergies Allergy (Verified 06/12/24 11:02) Medication List - Last Reconciled 06/12/24 by Anup Jordan MD acetaminophen 650 mg (2 x 325 mg) PO Q6H PRN 30 days albuterol sulfate 90 mcg/actuation (Ventolin HFA) 1 inh inhalation Q4H PRN apixaban (Eliquis) 5 mg PO BID aripiprazole 5 mg PO DAILY atorvastatin 80 mg PO BEDTIME carvedilol 6.25 mg PO BID carvedilol 3.125 mg PO BID clonazepam mg PO escitalopram oxalate 25 mg PO DAILY escitalopram oxalate 5 mg PO DAILY famotidine 20 mg PO BID fluticasone propion-salmeterol 250-50 mcg/dose (Wixela Inhub) 1 ea inhalation BID fluticasone propionate 50 mcg/actuation 1 spray intranasal DAILY insulin lispro (Humalog KwikPen U-200 Insulin) 20 units subcut TID levothyroxine 25 mcg PO DAILY@0600 linaclotide (Linzess) 145 mcg PO DAILY PRN mirabegron ER (Myrbetriq) 50 mg PO DAILY omeprazole 20 mg PO DAILY@0630 oxcarbazepine 600 mg PO BID tirzepatide (Mounjaro) mg subcut trazodone 150 mg PO BEDTIME walker Folding front wheeled walker [facility] Medical History (Updated 06/09/24 @ 15:33 by Gibran Palm MD) Insomnia Stress incontinence History of venous thromboembolism Insulin dependent type 2 diabetes mellitus Anxiety Bipolar 1 disorder Arthritis of right knee Fatty liver Asthma Hypothyroid DVT (deep venous thrombosis) Fibromyalgia HTN (hypertension) Chronic renal insufficiency Type 2 diabetes mellitus Bipolar disorder Depression Morbid obesity Chronic pulmonary embolism Sleep apnea GERD (gastroesophageal reflux disease) Elevated cholesterol Surgical History (Updated 04/14/25 @ 11:42 by Gibran Palm MD) History of right knee joint replacement History of esophagogastroduodenoscopy (EGD) H/O colonoscopy Hx of inguinal hernia repair Hx of sinus surgery Hx of shoulder surgery Hx of umbilical hernia repair Hx of arthroscopy of right knee History of bladder suspension procedure Hx of tonsillectomy H/O: hysterectomy History of ankle surgery Family History (Updated 05/16/24 @ 14:59 by LARISSA Dickson) Father Heart failure Diabetes HTN (hypertension) Maternal Aunt Diabetes Paternal Grandmother Diabetes Mother HTN (hypertension) Social History Household Members: Family Household Members Other:: takes care of parents Housing: House Are you a primary resident care aide to a significant other at home: No Do you presently have visiting nurse or other home services: No Patient Tobacco Use Status: Former Tobacco user Tobacco use type: Cigarette Years Smoked: 30 service: No Current occupational status: retired Physical Exam Vital Signs: BMI result Body Mass Index 40.7 Const Other: Well-nourished well-developed very friendly female awake alert and oriented x3 in no acute distress Extrem Other: Bilateral lower extremity examination shows good capillary refill, no skin lesions noted, normal sensation light touch Right knee examination shows that the surgical incision is well healed, no erythema, full active extension and flexion to 120 degrees, her patella tracks well Assessment & Plan Assessment & Plan (1) Right knee pain: Code(s): M25.561 - Pain in right knee Category: Medical Plan Ms. Dean continues to do very well after undergoing right total knee replacement surgery on 10/30/2023. She will continue with her home exercise program. She does know to take antibiotics before any dental work. She will contact me prior to her annual follow-up appointment should any questions or concerns arise. Feel free to call me at any time should questions regarding her orthopedic management arise. I spent 21 minutes in reviewing the patient's records and imaging studies, seeing the patient and documenting in the medical record. Orders: Orders XR knee RT 3V Today M25.561 - Pain in right knee Coding Level of Care Code Est Pt Level 3 (86337) Complex EM visit Add On G2211 Diagnoses Right knee pain M25.561
--- OUTSIDE RECORDS SUMMARY | 2024-06-12 12:10 | XMS_ITS | Encounter Summary ---
Author Organization [facility] Address [address] [address] Phone Care Team Providers Care Manufacturing Specialist Name Role Phone Janak Greer MD Primary Care Provider [phone] Encounter Details Date Type Department Care Team (Late Contact Info) Description 05/17/2021 Documentation Only [facility] [address] [place] [address] Kelechi Moran MD [address] [place] [address] [place] [address] Social History Tobacco Use Types [...] Visit [facility] [address] [place] [address] Kelechi Moran MD [address] [place] [address] [place] [address] documented as of this encounter Visit Diagnoses Not on filedocumented in this encounter Care Teams Manufacturing Specialist Relationship Specialty Start Date End Date Janak Greer MD [address] PCP - General 12/18/18 documented as of this encounter
--- OUTSIDE RECORDS SUMMARY | 2024-06-12 12:10 | XMS_ITS | Encounter Summary ---
Author Organization [facility] Address [address] [address] Phone Care Team Providers Care Force Dispatcher Name Role Phone Janak Greer MD Primary Care Provider [phone] Encounter Details Date Type Department Care Team (Late Contact Info) Description 05/20/2021 Documentation Only [facility] [address] [place] [address] Kelechi Moran MD [address] [place] [address] [place] [address] Social History Tobacco Use Types [...] Visit [facility] [address] [place] [address] Kelechi Moran MD [address] [place] [address] [place] [address] documented as of this encounter Visit Diagnoses Not on filedocumented in this encounter Care Teams Force Dispatcher Relationship Specialty Start Date End Date Janak Greer MD [address] PCP - General 12/18/18 documented as of this encounter
--- OUTSIDE RECORDS SUMMARY | 2024-06-12 12:10 | XMS_ITS | Encounter Summary ---
Author Organization [facility] Address [address] [place] [address] Care Team Providers Care Chrome Worker Name Role Phone Janak Greer MD Primary Care Provider [phone] Encounter Details Date Type Department Care Team (Late st Contact Info) Description 06/06/2023 Scanned Document [address] [phone] Provider, Generic Social History Tobacco Use Types [...] on filedocumented in this encounter Care Teams Chrome Worker Relationship Specialty Start Date End Date Janak Greer MD [address] [place] [address] PCP - General Internal Medicine 08/09/22 documented as of this encounter
--- OUTSIDE RECORDS SUMMARY | 2024-06-12 12:10 | XMS_ITS | Clinical Summary ---
Author Organization [facility] Address [address] [place] [address] Phone Care Team Providers Care Registered Nurse First Assistant Name Role Phone Janak Greer MD Primary Care Provider [phone] Allergies No known active allergies Medications apixaban [...] 02/25/2020 DX:Depression Diabetes mellitus type 2, uncomplicated ([facility] V24, [facility] V28) 02/25/2020 DX:Diabetes mellitus type 2, uncomplicated (HCC) Bipolar disorder ([facility] V2 4, [facility] V28) 02/25/2020 DX:Bipolar disorder (HCC) SHAWN (obstructive sleep apnea) 02/25/2020 DX :SHAWN (obstructive sleep apnea) Severe obesity with body mas s index (BMI) of 35.0 to 39.9 with comorbidity (CMS/HCC V24, [facility] V28) 02/25/2020 DX:Severe obesity with body mass index (BMI) of 35.0 to 39.9 with comorbidity ([facility]) History of pulmonary embolus (PE) 02/25/2020 DX:History of pulmonary embolus (PE) Dyspnea 02/25/2020 DX:Dyspnea Blood clotting tendency ([facility] V24) DX:Blood clotting tendency (HCC) Diabetes mellitus ([facility] V 24, [facility] V28) DX:Diabetes mellitus (HCC) High blood pressure [...] Maintenance Results * COLONOSCOPY Anesthesia - MAC; [facility] ENDOSCOPY (03/04/2024 8:56 AM EST) Anatomical Region [...] previously scheduled. Narrative 03/04/2024 8:56 AM EST [facility] GI Patient Name: Esperanza Dean [...] Procedure Code(s): ? --- Professional --- ? 16420, Colonoscopy, flexible; diagnostic, including ? collection of specimen(s) by brushing or washing, when ? performed (separate procedure) Diagnosis Code(s): ? --- Professional --- ? Z12.11, Encounter for screening for malignant neoplasm ? of colon CPT copyright 2020 [employer]. All rights reserved. The codes documented in this report are preliminary and upon hospital coder review may be revised to meet current compliance requirements. Yovanny Harvey MD 03/04/2024 8:56:08 AM This report has been signed electronically.Yovanny Harvey MD Number of Addenda: 0 Note Initiated On: 03/04/2024 8:33 AM Scope In: Scope Out: ? Endoscopy Department at [facility] - [address] [place] [address], ? [place] [address] Procedure Note Yovanny Harvey MD - 03/04/2024 [facility] GI Patient Name: Esperanza Dean [...] retroflexion views. Procedure Code(s): --- Professional --- 34249, Colonoscopy, flexible; diagnostic, including collection of specimen(s) by brushing or washing,when performed (separate procedure) Diagnosis Code(s): --- Professional --- Z12.11, Encounter for screening for malignantneoplasm of colon CPT copyright 2020 [employer]. All rights reserved. The codes documented in this report are preliminary and upon hospital coder reviewmay be revised to meet current compliance requirements. Yovanny Harvey MD 03/04/2024 8:56:08 AM This report has been signed electronically.Yovanny Harvey MD Number of Addenda: 0 Note Initiated On: 03/04/2024 8:33 AM Scope In: Scope Out: Endoscopy Department at [facility] - [address] [place] [phone] IMPRESSION: - Diverticulosis in the sigmoid colon. [...] MEDICARE ADVANTAGE [place] Care Teams Registered Nurse First Assistant Relationship Specialty Start Date End Date Janak Greer MD PCP - General Internal Medicine 05/26/08
--- OUTSIDE RECORDS SUMMARY | 2024-06-12 12:10 | XMS_ITS | Encounter Summary ---
Author Organization [facility] Address [address] [address] Phone Care Team Providers Care Emergency Management Director Name Role Phone Janak Greer MD Primary Care Provider [phone] Encounter Details Date Type Department Care Team (Late Contact Info) Description 05/27/2021 Documentation Only [facility] [address] [place] [address] Kelechi Moran MD [address] [place] [address] [place] [address] Social History Tobacco Use Types [...] [facility] [address] [place] [address] Kelechi Moran MD [address] [place] [address] [place] [address] documented as of this encounter Visit Diagnoses Not on filedocumented in this encounter Care Teams Emergency Management Director Relationship Specialty Start Date End Date Janak Greer MD [address] PCP - General 12/18/18 documented as of this encounter
--- OUTSIDE RECORDS SUMMARY | 2024-06-12 12:10 | XMS_ITS | Encounter Summary ---
Author Organization [facility] Address [address] [place] [address] Care Team Providers Care Speech Therapist Technician Name Role Phone Janak Greer MD Primary Care Provider [phone] Encounter Details Date Type Department Care Team (Late st Contact Info) Description 10/07/2022 [facility]phone [facility] [address] [place] [phone] Rommel Whyte MD [address] [place] [address] Social History Tobacco Use Types Packs/Day Years [...] on filedocumented in this encounter Care Teams Speech Therapist Technician Relationship Specialty Start Date End Date Janak Greer MD [address] [place] [address] PCP - General Internal Medicine 08/09/22 documented as of this encounter
--- OUTSIDE RECORDS SUMMARY | 2024-06-12 12:10 | XMS_ITS | Encounter Summary ---
Author Organization [facility] Address [address] [place] [address] Care Team Providers Care Lens Assistant Name Role Phone Janak Greer MD Primary Care Provider [phone] Reason for Visit * Reason Comments Med Change Request Encounter Details Date Type Department Care Team ([facility] st Contact Info) Description 10/04/2022 [facility]ill [facility] [address] [phone] Leslie Howell PA-C [address] [place] [phone] Visit for wound check Social History Tobacco [...] check documented in this encounter Care Teams Lens Assistant Relationship Specialty Start Date End Date Janak Greer MD [address] [place] [address] PCP - General Internal Medicine 08/09/22 documented as of this encounter
--- OUTSIDE RECORDS SUMMARY | 2024-06-12 12:10 | XMS_ITS | Encounter Summary ---
Author Organization [facility] Address [address] [place] [address] Care Team Providers Care Relay Adjuster Name Role Phone Janak Greer MD Primary Care Provider [phone] Encounter Details Date Type Department Care Team (Late st Contact Info) Description 09/30/2022 [facility]ill [facility] [address] [phone] Rommel Whyte MD [address] [place] [address] [place] [phone] Chronic pain of left ankle Social History [...] ankle documented in this encounter Care Teams Relay Adjuster Relationship Specialty Start Date End Date Janak Greer MD [address] [place] [address] PCP - General Internal Medicine 08/09/22 documented as of this encounter
--- OUTSIDE RECORDS SUMMARY | 2024-06-12 12:10 | XMS_ITS | Patient Health Record ---
Author Organization [facility] Address [address] [place] [phone] Care Team Providers Care Data Entry Assistant Name Role Phone Caprice Staples Unavailable [phone] Reason For Referral No Information Medications Medication SIG (Take, Route, Frequency, Duration) Notes Start Date End Date Status Topiramate 50MG 1 ORAL twice daily for [facility] 04/11/19 14 Active metFORMIN HCl 500MG 1 ORAL four times da negro for [facility] 04/11/2013 Active Luz 0.05MG 1 patch to skin Transdermal TWICE WEEKLY [facility] 04/04/2013 Active Vitamin D3 5,000 IU 1 ORAL daily for [facility] 04/11/2013 Active PriLOSEC OTC 20 MG 1 tablet Orally Once a day Active Atorvastatin Calcium 80 MG 1 tablet Oral ly Once a day Active Aspirin EC 81MG 1 ORAL daily for [facility] 04/11/2013 Active Abilify 2MG 1 ORAL daily for [facility] 04/11/2013 Active Restasis 0.05 % 1 into affected eye Ophthalmic Twice a day Active Luz 0.05 MG/24HR 1 patch to skin Transdermal TWICE WEEKLY for 90 days 07/22/2014 Active LORazepam 1MG 1 ORAL three times d aily for [facility] 04/11/2013 Active glipiZIDE 5MG ORAL three times greg ly for [facility] 04/11/2013 Active Cymbalta 60MG 1 ORAL daily for [facility] 04/11/2013 Active Problems Problem Type SNOMED Code ICD Code Onset Dates Problem Status W/U Status Risk Notes Problem Type II diabetes mellitus uncontrolled (168599604) Diabetes mellitus without mention of complication, type II or unspecified type, uncontrolled (250.02) Active confirmed Diag Problem Hyperlipidemia (83544524) Other and unspecified hyperlipidemia (272.4) Active confirmed Major Problem Menopausal symptom (10938040) Symptomatic menopausal or female climacteric states (627.2) Active confirmed Diag Problem Muscle pain (37031724) Unspecified myalgia and myositis (729.1) Active confirmed Major Problem Gynecological examination normal (078278120286447) Routine gynecological examination (V72.31) Active confirmed Major Plan Of Treatment Pending Test Test Name Order Date MAMMOGRAM, SCREENING 07/22/2014 Insurance Providers Payer Name Payer Address Payer Phone Subscriber Number Group Number Insured Name Patient Relationship to Insured Coverage Start Date Coverage End Date [employer] MEDICARE ADVANTAGE [facility] [address] [place] [address] [id number] CHEVY WOLF Self - patient is the [...]
--- OUTSIDE RECORDS SUMMARY | 2024-06-12 12:11 | XMS_ITS | Clinical Summary ---
Author Organization [facility] Address [address] [place] [address] Care Team Providers Care Driver Sales Name Role Phone Janak Greer MD Primary Care Provider [phone] Allergies No known active allergies Medications No [...] to complete this topic Insurance Care Teams Driver Sales Relationship Specialty Start Date End Date Janak Greer MD [address] [place] [address] PCP - General Internal Medicine 08/09/22
--- OUTSIDE RECORDS SUMMARY | 2024-06-12 12:11 | XMS_ITS | Encounter Summary ---
Author Organization [facility] Address [address] [address] Phone Care Team Providers Care Furnace Feeder Name Role Phone Janak Greer MD Primary Care Provider [phone] Reason for Visit * Reason Comments New Med Request Encounter Details Date Type Department Care Team (Late Contact Info) Description 04/12/2022 Refill [facility] [address] [place] [address] Kelechi Moran MD [address] [place] [address] [place] [address] Social History Tobacco Use Types [...] [facility] [address] [place] [address] Kelechi Moran MD [address] [place] [address] [place] [address] documented as of this encounter Visit Diagnoses Not on filedocumented in this encounter Care Teams Furnace Feeder Relationship Specialty Start Date End Date Janak Greer MD [address] PCP - General 12/18/18 documented as of this encounter
--- OUTSIDE RECORDS SUMMARY | 2024-06-12 12:11 | XMS_ITS | Clinical Summary ---
Author Organization [facility] Address [address] [place] [address] Care Team Providers Care Filer Finish Name Role Phone Janak Greer MD Primary Care Provider [phone] Allergies No known active allergies Medications Medication [...] 0 05/13/2019 Act kay Continuous Blood Gluc Cnc Machinist (FreeStyle Joseph 14 Day [place]) PABLO 0 01/29/2019 Active Continuous Blood Gluc [...] Quadrivalent) 0.5 ML ROSE MARIE Flucelvax Quad [id number] (PF) 60 mcg (15 mcg x 4)/0.5 [...] ambreen lite 0 Active Continuous Blood Gluc Cnc Machinist (FreeStyle Joseph 14 Day [place]) PABLO FreeStyle Joseph 14 Day [place] 0 Active Lancets (freestyle) lancets FreeStyle Joseph [...] age to complete this topic Care Teams Filer Finish Relationship Specialty Start Date End Date Janak Greer MD [address] [place] [address] PCP - General Internal Medicine 12/27/18
--- OUTSIDE RECORDS SUMMARY | 2024-06-12 12:11 | XMS_ITS | Clinical Summary ---
Author Organization [facility], Address [address] [place] [address] [place] [address] Phone Care Team Providers Care Wholesale Parts Salesperson Name Role Phone Janak Greer MD Primary Care Provider Allergies No known active allergies Medications aspirin (ST JULI) 81 MG EC tablet Take 1 tablet by mouth 1 (one) time each day Active Multiple Vitamins-Raton als (CENTRUM SILVER PO) Take 1 tablet [...] MG tablet 9 Active Continuous Blood Gluc [facility] Security Director (FREESTYLE KAPIL 14 DAY READER) device 9 [...] Visit [facility] [place], [address] [place] [address] Kelechi Moran MD [address] [facility] [place] [phone] Health Maintenance Due Date Last Done Comments [...] from Last 3 Months Results * (ABNORMAL) Protein, Total, Random Urine w/Creatinine (Protein/Creat Ratio) (06/10/2024 10:06 AM EDT) Creatinine, Ur 32.0 Not Estab. mg/dL [facility] Protein, Ur 68.3 Not Estab. mg/dL [facility] Urine Protein/Creati nine Ratio 2,134(H) 0 - 200 mg/g creat [facility] 06/10/2024 10:0 6 AM EDT 06/10/2024 Kelechi Moran MD LAB URINE ORDERABLES Final Result [facility] [address] [place] [address] * (ABNORMAL) CBC and Differential (06/10/2024 10:06 AM EDT) WBC 8.0 3.4 - 10.8 x10E3/uL [facility] RBC 3.73(L) 3.77 - 5.28 x10E6/uL [facility] Hemoglobin 11.2 11.1 - 15.9 g/dL [facility] Hematocrit 33.6(L) 34.0 - 46.6 % [facility] MCV 90 79 - 97 fL [facility] MCH 30.0 26.6 - 33.0 pg [facility] MCHC 33.3 31.5 - 35.7 g/dL [facility] RDW 12.7 11.7 - 15.4 % [facility] Platelets 313 150 - 450 x10E3/uL [facility] Neutrophils Relative 72 Not Estab. % [facility] Lymphocytes Relative 19 Not Estab. % [facility] Monocytes 5 Not Estab. % [facility] Eosinophils Relative 3 Not Estab. % [facility] Basophils Relative 1 Not Estab. % [facility] Neutrophils Absolute 5.7 1.4 - 7.0 x10E3/uL [facility] Lymphocytes Absolute 1.5 0.7 - 3.1 x10E3/uL [facility] Monocytes Absolute 0.4 0.1 - 0.9 x10E3/uL [facility] Eosinophils Absolute 0.3 0.0 - 0.4 x10E3/uL [facility] Basophils Absolute 0.1 0.0 - 0.2 x10E3/uL [facility] Immature Granulocytes 0 Not Estab. % [facility] Immature Grans (Absolute) 0.0 0.0 - 0.1 x10E3/uL [facility] 06/10/2024 10:0 6 AM EDT 06/10/2024 us Kelechi Moran MD LAB BLOOD ORDERABLES Final Result [facility] [address] [place] [address] * (ABNORMAL) Renal Function Panel (06/10/2024 10:06 AM EDT) Glucose 98 70 - 99 mg/dL [facility] BUN 45(H) 8 - 27 mg/dL [facility] Creatinine 1.50(H) 0.57 - 1.00 mg/dL [facility] eGFR CKD-EPI CR 2020 39(L) >59 mL/min/1.7 3 [facility] BUN/Creatinine Ratio 30(H) 12 - 28 [facility] Sodium 136 134 - 144 mmol/L [facility] Potassium 4.4 3.5 - 5.2 mmol/L [facility] Chloride 100 96 - 106 mmol/L [facility] Bicarbonate (CO2) 19(L) 20 - 29 mmol/L [facility] Calcium 9.5 8.7 - 10.3 mg/dL [facility] Albumin 4.2 3.9 - 4.9 g/dL [facility] Phosphorus 4.2 3.0 - 4.3 mg/dL [facility] 06/10/2024 10:0 6 AM EDT 06/10/2024 Kelechi Moran MD LAB BLOOD ORDERABLES Final Result [facility] [address] [place] [address] from Last 3 Months Insurance [facility] Medicaid [place] Care Teams Wholesale Parts Salesperson Relationship Specialty Start Date End Date Janak Greer MD [address] PCP - General 12/18/18
--- OUTSIDE RECORDS SUMMARY | 2024-06-12 12:11 | XMS_ITS | Data Portability ---
Author Organization [place] [facility] Franca Grullon [facility] Address [address] [place] [address] Care Team Providers Care Business Support Liaison Name Role Phone ANUSHA VOGEL Primary Care Provider [phone] ANUSHA VOGEL Primary Care Provider [phone] Assessment Encounter Date Assessment Date Assessment LastModified [...] In the meantime she will continue with dgwg-fin-grhaesp pain medication. We will set up the [...] degrees. The knee is stable within that umrps-zc-kqrces to AP and ML stress. The alignment [...] is intact. MRI: Left wrist performed at [facility] April 05, 2023 reveals equivocal subluxation [...] degrees. The knee is stable within that faihx-hd-nzweyu to AP and ML stress. The alignment [...] for right total knee replacement, robotic assisted, [place] joint replacement [place]. Not available 05/26/2023 10:08:43 Plan of Treatment Reminders Order Date Submit Date Provider Last Modified By Organization Details Last Modified Time Details Appointments None recorded. Lab None recorded. Referral None recorded. Procedures None recorded. Surgeries total knee arthroplast y (SURG) 2023 024 [email or web address] 0 Not available 10:19:12 Imaging XR, knee, 4 or more view 2023 024 [email or web address] [facility], [address], [place], [address], 11:11:12 MRI, wrist, w/o contrast - Evaluate ECU/sixth extensor compartment for tenosynovit is.Please call patient to schedule and hand carry CD 2023 024 [email or web address] [facility], [address] [place], [address], 09:42:37 Medication Orders None recorded. Patient TargetsNo targets recorded. Patient Instructions Encounter Date Encounter Id Patient Instructions Last Modified By Organization Details Last Modified Time 03/24/2023 [id number] AP, lateral, Melchor, and patellar view radiographs of the right knee taken today demonstrate right knee degenerative joint disease with joint space narrowing, osteophyte formation, and subchondral sclerosis. there is gyne-iz-tjhh articulation in the medial compartment. Not available 03/24/2023 11:00:11 Reason for Referral None Reported. Results Created Date Observation Date Name Description Value Unit Range Abnormal Flag Note LastModifiedBy Organization Detail LastModifiedTime 04/18/19 24 04/05/2023 MRI, wrist , w/o contr ast No observ ation record ed. [email or web address] [facility] [address] [place], [address], 04/18/2023 15:46:48 04/27/19 MRI, wrist , w/o contr ast No observ ation record ed. [email or web address] [facility] [address] [place], [address], 04/27/2023 08:42:31 Result Notes None recorded. 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 951789613 Active 2022 Dallin Lima MD [address], [facility] [place], [address], [place] [facility] 3 17:40:16 Arthritis of first carpometaca rpal joint of left hand 4329613725984 103 Active 2022 Dallin Lima MD [address], [place], [address], [place] [facility] 3 17:40:30 Instability of joint of right knee 8106030054874 102 Active 2022 TERESA SHINE PA-C [address], [place], [address], [place] [facility] 3 09:18:55 Effusion of joint of right knee 1799827149716 04 Active 2022 TERESA SHINE PA-C [address], [place], [address], [place] [facility] 3 10:05:35 Osteoarthri tis of right knee joint 5003589378630 00 Active 2022 TERESA SHINE PA-C [address], [place], [address], [place] [facility] 3 12:46:54 Problem Notes None recorded. Procedures Surgical History Date Name Laterality Status Provider Name and Address Organization Details Recorded Time 02/22/19 24 AONE tendon sheath cortisone injection completed Dallin Lima MD [address], [place], [address], [place] [facility] 02/22/2023 10:43:39 12/30/19 23 Knee Joint/Bursa Asp & Inj completed TERESA SHINE PA-C [address], [place], [address], [place] [facility] 12/29/2022 10:03:04 12/21/19 23 Knee Joint/Bursa Asp & Inj completed TERESA SHINE PA-C [address], [place], [address], [place] [facility] 12/20/2022 13:29:41 09/16/19 23 Knee Joint/Bursa Asp & Inj completed TERESA SHINE PA-C [address], [place], [address], [place] [facility] 09/15/2022 07:52:52 08/25/19 23 AONE tendon sheath cortisone injection completed Dallin Lima MD [address], [place], [address], [place] [facility] 08/24/2022 12:40:55 06/21/19 23 Knee Joint/Bursa Asp & Inj completed TERESA SHINE PA-C [address] [facility],[address], [place], [address], [place] [facility] 06/19/2022 23:48:21 hysterectomy completed [facility] [place] [facility] 12/29/2022 08:44:02 procedure on urinary bladder completed [facility] [place] [facility] 12/29/2022 08:44:53 procedure on shoulder completed [facility] 12/29/2022 08:45:08 hernia repair completed [facility] 12/29/2022 08:45:14 Imaging Results Imaging Date Name Status LastModified by Organiz ation Details LastModified Time 04/05/2023 MRI, wrist, w/o contrast completed [email or web address] [facility] [address] [place], [address], 04/18/2023 15:46:48 04/27/2023 MRI, wrist, w/o contrast completed [email or web address] [facility] [address] [place], [address], 04/27/2023 08:42:31 Procedure Notes None recorded. Medical [...] Updated DateTime 03/24/2023 162.56 cm 45.3 kg/m2 463554.[address] [facility] 03/24/2023 10:44:14 Date Recorded Body height Body mass index (BMI) Body weight Provider Name and Address Organization Details Last Updated DateTime 05/26/2023 162.56 cm 44.3 kg/m2 050864.[address] [facility] 05/26/2023 09:56:04 Social History Question Answer Notes LastModified by Organizat ion Details LastModified Time Tobacco Smoking Status Former Smoker Beatriz gottlieb, [place] [facility] 12/29/2022 08:46:38 What Is Your Level [...] MRSA N Blood Transfusion N Emphysema N Depression N COPD N Hypothyroidism Y Pacemaker N Vascular Disease N Gastrointestinal Disease N Anxiety Disorder N Autoimmune disease N Arthritis N Cancer N Stroke N High Cholesterol N Neurologic Disorder N Liver Disease N Organ Transplant N Rheumatoid Arthritis N Arrhythmia N Fibromyalgia N Kidney Disease Y Allergies/Hayfever N Adverse Reaction to Anesthesia N Thyroid Problems N Anemia N Brain Injury N Heart Attack ([place]) N Osteopenia N Diabetes Y Bleeding Disorder [...] Code Diagnosis Note [id number] MD BRANDEN Curran [address] [address] 06/08/2022 11:44:59 06/08/2022 12:08:20 Extensor tenosynovitis of wrist 212615677 M65.839 [id number] ELVIE GUTIERREZ [facility] [address] [place] [address] 06/20/2022 11:03:15 06/20/2022 11:48:20 Pain of right knee joint 1930364765 24981 M25.561 Osteoarthr itis of right knee joint 8891384002 14002 M17.11 [id number] MD BRANDEN Curran [address] [address] 06/29/2022 10:05:38 06/29/2022 11:00:28 Pain of left wrist 7513638164 99535 M25.532 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 4272834409 73996 G56.02 [id number] MD BRANDEN Curran [place] [address] 08/03/2022 10:36:47 08/03/2022 11:31:14 Extensor tenosynovitis of wrist 103113434 M65.839 Arthritis of first carpometacarpal joint of left hand 8492839374 580435 M13.842 [id number] MD BRANDNE Curran [place] [address] 08/24/2022 11:23:15 08/24/2022 11:57:21 Extensor tenosynovitis of wrist 159394460 M65.8[place] [id number] ELVIE GUTIERREZ [facility] 299 [facility] [address] [place] [address] 09/15/2022 10:34:27 09/15/2022 11:35:33 Osteoarthritis of right knee joint 5604995782 85150 M17.11 [id number] ELVIE GUTIERREZ [facility] [address] [place] [address] 12/20/2022 09:13:41 12/20/2022 10:01:14 Osteoarthritis of right knee joint 1727420647 52739 M17.11 [id number] ELVIE GUTIERREZ [facility] [address] [place] [address] 12/29/2022 08:17:47 12/29/2022 09:01:45 Osteoarthritis of right knee joint 1666218895 83458 M17.11 Instabilit y of joint of right knee 4443707258 830669 M25.361 Effusion o f joint of right knee 7533540926 93954 M25.461 Right knee joint effusion [id number] ELVIE GUTIERREZ [facility] [address] [address] 01/03/2023 14:25:07 01/03/2023 15:04:47 Instability of joint of right knee 0375419025 222143 M25.361 Nonbillabl e visit [id number] ELVIE GUTIERREZ [facility] [address] [address] 01/11/2023 10:36:20 01/11/2023 11:21:09 Instability of joint of right knee 9839435970 515338 M25.361 Osteoarthr itis of right knee joint 6440134153 13416 M17.11 [id number] MD BRANDEN Curran [place] [address] [facility] [address] [place] [address] 02/22/2023 09:50:34 02/22/2023 10:26:40 Extensor tenosynovitis of wrist 146747666 M65.839 Left ECU [id number] ELVIE GUTIERREZ [facility] [address] [address] 03/16/2023 10:50:05 03/16/2023 11:32:54 Osteoarthritis of right knee joint 8556163597 49795 M17.11 [id number] MD BRANDEN Curran [place] [address] [place] [address] 03/22/2023 11:22:58 03/22/2023 11:37:45 Synovitis and tenosynovitis of joint of wrist 9625419028 M67.834 Left ECU [id number] MD BRANDEN Santiago [facility] 299 [facility] [address] [place] [address] 03/24/2023 10:25:15 03/24/2023 10:59:45 Pain of right knee joint 1168975421 74938 M25.561 Osteoarthr itis of right knee joint 6108997952 19950 M17.11 [id number] MD BRANDEN Curran [place] [address] [address] 04/19/2023 11:05:25 04/19/2023 11:34:04 Extensor tenosynovitis of wrist 468411958 M65.839 Left ECU [id number] MD BRANDEN Santiago [facility] 299 [facility] [address] [place] [address] 05/26/2023 09:16:00 05/26/2023 10:12:04 Osteoarthritis of right knee joint 7139428011 56795 M17.11 Arthritis of knee 140688 002 M13.869 Health Concerns Section Related Observation LastModified by Organization Detai ls LastModified Time None Recorded Concern Status LastModified by Organization Details LastModified Time None Recorded Advance Directives Directive None Recorded Payers Encounter Date Sequence Insurance Name Policy Number Policy Azul Covered Member ID Azul Member ID Guarantor Name 03/16/2023 1 [employer] MEDICARE ADVANTAGE PLAN (MEDICARE REPLACEMENT HMO) [id number] Esperanza Dean [id number] Esperanza Dean 03/16/2023 2 [place] [facility] Esperanza Dean [id number] Esperanza Dean 03/22/2023 1 [facility] MEDICARE ADVANTAGE PLAN (MEDICARE REPLACEMENT HMO) [id number] Esperanza Dean [id number] Esperanza Dean 03/24/2023 1 [employer] MEDICARE ADVANTAGE PLAN (MEDICARE REPLACEMENT HMO) [id number] Esperanza Dean [id number] Esperanzamurtaza Loveelin 03/24/2023 2 [place] [facility] Esperanza Loveelin [id number] Esperanzamurtaza Loveelin 04/19/2023 1 [employer] MEDICARE ADVANTAGE PLAN (MEDICARE REPLACEMENT HMO) [id number] Esperanza Loveelin [id number] Esperanzamurtaza Loveelin 05/26/2023 1 [employer] MEDICARE ADVANTAGE PLAN (MEDICARE REPLACEMENT HMO) [id number] Esperanza Dean [id number] Esperanza Dean 05/26/2023 2 [place] [facility] Esperanza Loveelin [id number] Esperanza Dean Notes Date Note Type Note Provider Name [...] she is on Eliquis. TERESA SHINE PA-C [address] [place] [address], [address], [place] [facility], 03/16/2023 12:32:58 OBGyn Episode No OBEpisode recorded.
--- OUTSIDE RECORDS SUMMARY | 2024-06-12 12:11 | XMS_ITS | Encounter Summary ---
Author Organization [facility] Address [address] [address] Phone Care Team Providers Care Glass Tinter Name Role Phone Janak Greer MD Primary Care Provider [phone] Encounter Details Date Type Department Care Team (Late Contact Info) Description 02/26/2021 Documentation Only [facility] [address] [place] [address] Kelechi Moran MD [address] [place] [address] [place] [address] Social History Tobacco Use Types [...] Visit [facility] [address] [place] [address] Kelechi Moran MD [address] [place] [address] [place] [address] documented as of this encounter Visit Diagnoses Not on filedocumented in this encounter Care Teams Glass Tinter Relationship Specialty Start Date End Date Janak Greer MD [address] PCP - General 12/18/18 documented as of this encounter
--- OUTSIDE RECORDS SUMMARY | 2024-06-12 12:11 | XMS_ITS | Encounter Summary ---
Author Organization [facility] Address [address] [address] Phone Care Team Providers Care Regeneration Operator Name Role Phone Janak Greer MD Primary Care Provider [phone] Encounter Details Date Type Department Care Team (Late Contact Info) Description 04/01/2021 Documentation Only [facility] [address] [place] [address] Kelechi Moran MD [address] [place] [address] [place] [address] Social History Tobacco Use Types [...] Visit [facility] [address] [place] [address] Kelechi Moran MD [address] [place] [address] [place] [address] documented as of this encounter Visit Diagnoses Not on filedocumented in this encounter Care Teams Regeneration Operator Relationship Specialty Start Date End Date Janak Greer MD [address] PCP - General 12/18/18 documented as of this encounter
--- OUTSIDE RECORDS SUMMARY | 2024-06-12 12:11 | XMS_ITS | Data Portability ---
Author Organization [place] - [facility], Allergy Address [address] [address] Care Team Providers Care Offset Proof Press Operator Name Role Phone LELAANUSHA Primary Care Provider [...] in 1-2 weeks as scheduled for reevaluation. [email or web address] Not available 08/10/2023 16:45:14 09/28/2023 09/28/2023 Patient [...] 2023 AZEEM En[facility], 100 [place], [address], 4 14:09:46 Medication Orders doxycyclin e hyclate 100 mg capsule 2023 [facility] #[id number], [phone] [place], [address], 4 11:38:28 fluticason e propionate 50 mcg/actuat ion nasal spray,susp ension 2023 024 [facility]/Pharmacy #[id number], [phone] [place], [address], 4 12:08:06 Patient TargetsNo targets recorded. Patient [...] No observ ation record ed. [email or web address] Ents [address], [address], 07/24/2023 12:41:01 07/26/19 24 audio gram No observ ation record ed. BARCODE Not Available 2023 12:46:02 08/08/19 24 07/24/2023 CT, sinus es, w/o contr ast No observ ation record ed. [facility] [address], [address], 08/08/2023 22:58:50 Result Notes None recorded. Problems Name Problem SNOMED Code Status Onset Date Resolution Date Notes Provider Name and Address Organization Details Recorded Time Benign paroxysma l positiona l vertigo 221872220 Active 2020 Benign paroxysma l vertigo, unspecifi ed ear; Note: Date Diagnosed : 04/14/2020 10:02 AM (H81.10) Not Available Critical access hospital 4 02:26:19 Otorrhagi a of right ear 50679270586 50349 Active 2022 Otorrhagi a, right ear; Note: Date Diagnosed : 06/14/2022 2:51 PM (H92.21) Not Available Critical access hospital 4 02:26:40 Disturban ce of salivary secretion 60723516 Active 2021 Xerostomi a; Note: Date Diagnosed : 09/30/2021 11:57 AM (K11.7) Not Available Critical access hospital 4 02:26:26 Bilateral temporoma ndibular joint pain 38153735544 611151 Active 2022 Arthralgi a of bilateral temporoma ndibular joint; Note: Date Diagnosed : 05/10/2022 2:35 PM (M26.623) Arthral justin of bilateral temporoma ndibular joint; Note: Date Diagnosed : 04/14/2020 10:02 AM (M26.623) ; Start Date : Not Available Critical access hospital 4 02:26:33 Gastroeso phageal reflux disease without esophagit is 461458108 Active 2021 Gastro-es ophageal reflux disease without esophagit is; Note: Date Diagnosed : 04/15/2021 10:11 AM (K21.9) Not Available Critical access hospital 4 02:26:18 Sensorine ural hearing loss of bilateral ears 007977343 Active 2020 Sensorine ural hearing loss, bilateral ; Note: Date Diagnosed : 04/14/2020 10:03 AM (H90.3) Not Available Critical access hospital 4 02:26:31 Allergic rhinitis caused by pollen 40684577 Active 2021 Allergic rhinitis due to pollen; Note: Date Diagnosed : 09/30/2021 11:57 AM (J30.1) Not Available Critical access hospital 4 02:26:46 Bleeding from nose 689346247 Active 2022 Epistaxis ; Note: Date Diagnosed : 05/10/2022 2:35 PM (R04.0) Not Available Critical access hospital 4 02:26:44 Chronic sinusitis 75307054 Active 2023 ELENITA KANG MD [address] [place] [address], [place], [address] , [facility] - [facility] 4 21:08:07 Deviated nasal septum 035234533 Active 2023 ELENITA KANG MD [address] [facility] [place],[address], [place], [address] , [place] - [facility] 4 21:08:13 Abnormal auditory perceptio n 04883099 Active 2023 ELENITA KANG MD [address] [facility] [place] [address], [place], [address] , [place] - [facility] 4 12:02:38 Chronic left maxillary sinusitis 01923233490 425722 Active 2023 ELENITA KANG MD 100 [facility],[place] [address], [place], [address] , [place] - [facility] 4 14:04:57 Obstructi ve sleep apnea syndrome 65549873 Active 2023 ELENITA KANG MD 100 [facility],[place] [address], [place], [address] , [place] - [facility] 4 14:22:09 Chronic maxillary sinusitis 17267645 Active 2023 Chronic maxillary sinusitis ; Note: Date Diagnosed : 06/12/2023 11:15 AM (J32.0) Not Available Critical access hospital 4 02:26:21 Acute maxillary sinusitis 28772470 Active 2023 Acute maxillary sinusitis , unspecifi ed; Note: Date Diagnosed : 04/25/2023 11:27 AM (J01.00) Not Available Critical access hospital 4 02:26:24 Problem Notes None recorded. Procedures Surgical History Date Name Laterality Status Provider Name and Address Organization Details Recorded Time 01/08/20 24 NasalEndoscopy_DP completed MARVIN CHEUNG PA-C 100 [facility],[place] [address], [place], [address], [facility] 01/08/2024 12:45:15 09/28/19 24 JMSNasal/Sinus Endoscopy-PRIOR surgical cavities completed ELENITA MONTANO MD [address] [facility] [place] [address], [place], [address], [place] - [facility] [place] 09/28/2023 12:07:20 08/25/19 24 JMSNasal/Sinus Endoscopy-DEBRIDE MENT completed ELENITA MONTANO MD [address], [address], [facility] - [facility] [place] 08/25/2023 14:20:40 08/10/19 24 JMSNasal/Sinus Endoscopy-DEBRIDE MENT completed RAMYA BHATTI PA-C [address], [address], [facility] - [facility] [place] 08/10/2023 16:43:40 08/08/19 24 ENDOSCOPY, NASAL/SINUS W/ PARTIAL ETHMOIDECTOMY (SURG) completed Nacho Aldana [place] - [facility] 08/11/2023 13:52:45 07/24/19 24 JMSNasal/Sinus Endoscopy completed ELENITA MONTANO MD [address] [place] [address], [address], [facility] - [facility] 07/24/2023 12:01:33 07/24/19 24 SRT & Tymps (15263 & 44728) completed Leah Donaldson [place] - [facility] 07/24/2023 12:28:03 Imaging Results Imaging Date Name Status LastModified by Organiz ation Details LastModified Time 07/24/2023 CT, sinuses, w/o contrast completed [facility] [address], [address], 07/24/2023 12:41:01 07/26/2023 audiogram completed [facility] Information no t available 07/26/2023 12:46:02 07/24/2023 CT, sinuses, w/o contrast completed [facility] [address], [address], 08/08/2023 22:58:50 Procedure Notes None recorded. Medical [...] mg tablet 09/30 completed Medicati on ID: [id number] B rand Name: furosemi de Send Method: E-Prescr ibed Sub s Allowed: subs OK Medic ationGen ericName : furosemi de Not Available Not Available Not Available Miralax 17 gram/dose oral powder 09/30 completed Medicati on ID: [id number] B rand Name: Miralax Send Method: E-Prescr [...] pack Take 06/11 completed Medicati on ID: [id number] P rescribe d By Name: Joleen Cruz MD Brand Name: Medrol (Jeff) Se nd Method: E-Prescr ibed Sub s Allowed: subs OK Rauli al Instruct ion: take as instruct ed Medic ationGen ericName : Medrol (Jeff) Not Available Not Available Not Available prednison e 20 mg tablet by mouth 2023 active Medicati on ID: [id number] B rand Name: predniso ne Send Method: [...] tended release 09/30 completed Medicati on ID: [id number] B rand Name: Tylenol Arthriti s Pain [...] mg tablet 09/30 completed Medicati on ID: [id number] B rand Name: oxcarbaz epine Se nd Method: E-Prescr ibed Sub s Allowed: subs OK Medic ationGen ericName : oxcarbaz epine Not Available Not Available Not Available acetamino phen 300 mg-codein e 30 mg tablet active Medicati on ID: [id number] B rand Name: acetamin ophen-co deine Se [...] mcg tablet 09/30 completed Medicati on ID: [id number] B rand Name: levothyr oxine Se nd Method: E-Prescr ibed Sub s Allowed: subs OK Medic ationGen ericName : levothyr oxine Not Available Not Available Not Available hydrocort isone 2.5 % topical cream with perineal applicato r 06/11 completed Medicati on ID: [id number] B rand Name: hydrocor tisone S end [...] 100 mg tablet active Medicati on ID: [id number] B rand Name: trazodon e Send Method: E-Prescr ibed Sub s Allowed: subs OK Medic ationGen ericName : trazodon e Medica tion ID: [id number] B rand Name: trazodon e Send Method: E-Prescr ibed Sub s Allowed: subs OK Medic ationGen ericName : trazodon e Not Available Not Available Not Available benzonata te 100 mg capsule TAKE 1 CAPSULE BY MOUTH THREE TIMES A DAY FOR 3 DAYS active Not Available Not Available No t Available levothyro xine 50 mcg tablet active Medicati on ID: [id number] B rand Name: levothyr oxine Se nd Method: E-Prescr ibed Sub s Allowed: subs OK Medic ationGen ericName : levothyr oxine Not Available Not Available Not Available cephalexi n 500 mg capsule TAKE 1 CAPSULE BY MOUTH FOUR TIMES A DAY active Not Available Not Available No t Available tacrolimu s 0.1 % topical ointment 06/11 completed Medicati on ID: [id number] B rand Name: tacrolim us Send Method: [...] mg tablet 06/11 completed Medicati on ID: [id number] B rand Name: hydroxyz ine HCl Send [...] nasal spray 09/30 completed Medicati on ID: [id number] B rand Name: azelasti ne Send Method: [...] unit) tablet 09/30 completed Medicati on ID: [id number] B rand Name: Vitamin D3 Send Method: E-Prescr ibed Sub s Allowed: subs OK Medic [facility] ericName : Vitamin D3 Not Available Not [...] as directed 2022 active Medicati on ID: [id number] D uration Value: 14 Brand Name: Ciprodex Send Method: E-Prescr ibed Sub s Allowed: subs OK [facility] C[facility]dex Not Available Not Available Not Available escitalop brittany 5 mg tablet TAKE 1 TABLET BY MOUTH ONCE DAILY. TAKE TOGETHER WITH 20 MG FOR TOTAL OF 25 MG PER DAY active Not Available Not Available No t Available Cinnamon 500 mg capsule 09/30 completed Medicati on ID: [id number] B rand Name: Cinnamon Send Method: E-Prescr ibed Sub s Allowed: subs OK [facility] : Cinnamon Not Available [...] mcg tablet 09/30 completed Medicati on ID: [id number] B rand Name: Centrum Silver Women Se [...] ous pen injector active Medicati on ID: 698332 B rand Name: Иван Send Method: E-Prescr [...] Updated DateTime 08/10/2023 162.56 cm 43.9 kg/m2 097715.65 g Deborah Godfrey [place] - [facility] 08/10/2023 15:56:40 Date Recorded Body height Provider Name an d Address Organization Details Last Updated DateTime 08/25/2023 162.56 cm Jacob Bishop [place] - [facility] 08/25/2023 14:03:50 Date Recorded Body height Body mass index (BMI) Body weight Provider Name and Address Organization Details Last Updated DateTime 09/28/2023 162.56 cm 43.4 kg/m2 814712.87 g Jacob Bishop [place] - [facility] 09/28/2023 11:59:23 Date Recorded Body height Body mass index (BMI) Body weight Provider Name and Address Organization Details Last Updated DateTime 07/24/2023 162.56 cm 43.9 kg/m2 506697.65 g Jacob Bishop [place] - [facility] 07/24/2023 11:37:39 Social History None recorded. [...] Note [id number] ELENITA KANG MD [facility] [address] [address] 07/24/2023 10:58:36 07/24/2023 13:19:59 Chronic sinusitis 34827281 J32.9 J32.8 Because of increased symptoms on [...] handout was given Deviated nasal septum 12 3670823 J34.2 Abnormal a uditory perception 76185974 H93.293 Tymp and SRT reviewedA speech awareness threshold test, tympanomet ry, and distortion product otoacousti c emission test were performed. Results are as follows: Speech Awareness/ Retail Assistant Manager Test: Right Ear:{{with in normal limits 0 [...] ld not maintain a hermetic seal}} [id number] RAMYA BHATTI PA-C [facility] 100 [place] [address] 08/10/2023 15:42:46 08/10/2023 16:16:37 Chronic sinusitis 33836480 J32.8 Postoperative visit 1836 03872 Z48.89 7238 ELENITA KANG MD [facility] 100 [place] [address] 08/25/2023 13:59:35 08/25/2023 14:34:07 Chronic left maxillary sinusitis 9915254716 1962274 J32.0 No residual infection. Debridemen t performed. Suggest gentle irrigation to avoid ear symptoms. Burning mouth has improved. She can take some probiotics . Follow-up 4 weeks. Abnormal a uditory perception 30923049 H93.293 No fluid Obstructiv e sleep apnea syndrome 29095105 G47.33 Resume CPAP [id number] ELENITA KANG MD [facility] 100 [place] [address] 09/28/2023 11:30:17 09/28/2023 12:14:30 Chronic left maxillary sinusitis 6862931494 2992915 J32.0 No residual infection. Debridemen t performed. Suggest gentle irrigation to avoid ear symptoms. Burning mouth has improved. She can take some probiotics . Follow-up 4 weeks. Deviated nasal septum 12 6337368 J34.2 [id number] MARVIN CHEUNG PA-C [facility] 100 [place] [address] 01/08/2024 10:59:57 01/08/2024 11:42:28 Deviated nasal septum 117291531 J34.2 right Chronic le ft maxillary sinusitis 5606241856 1398341 J32.0 Health Concerns Section Related Observation LastModified by Organization Detai ls LastModified Time None Recorded Concern Status LastModified by Organization Details LastModified Time None Recorded Advance Directives Directive None Recorded Payers Encounter Date Sequence Insurance Name Policy Number Policy Azul Covered Member ID Azul Member ID Guarantor Name 07/24/2023 2 [place] [facility] Esperanza Sales Dianne [id number] Esperanza M Dianne 07/24/2023 1 [place] [address] Esperanza Sales Dianne [id number] Esperanza M Dianne 08/10/2023 2 [place] [facility] Esperanza M Dianne [id number] Esperanza M Dianne 08/10/2023 1 [place] [address] Esperanza Sales Dianne [id number] Esperanza M Dianne 08/25/2023 2 [place] [facility] Esperanza Mónica Dianne [id number] Esperanza M Dianne 08/25/2023 1 [place] [address] 01 Esperanza M M Dianne [id number] Esperanza M Dianne 09/28/2023 2 [place] [facility] Esperanza M Dianne [id number] Esperanza M Dianne 09/28/2023 1 [place] [address] Esperanza Sales Dianne [id number] Esperanza M Dianne 01/08/2024 2 [place] [facility] Esperanza M Dianne [id number] Esperanza M Dianne 01/08/2024 1 [place] [address] Esperanza Sales Dianne [id number] Esperanza M Idanne Notes Date Note Type Note Provider Name and Address Organization Details Recorded Time 07/24/2023 text/html No change with prednisone or abx. Still has facial pressure and ear fullness L > R prior [id number] with chronic left maxillary sinusitis. Symptoms started [...] endoscopic sinus surgery. ELENITA MONTANO MD 100 [facility],[address], [address], [facility] - [facility] 07/24/2023 12:45:01 08/10/2023 text/html 62-year-old fema le presents status post left maxillary antrostomy with sigifredo bullosa resection on 08/08/[address] Montano. She is doing well postoperatively. Currently on amoxicillin. MIKE MONTOYA MD 100 [facility],[place] [address], [place], [address], [facility] 08/10/2023 17:13:02 08/25/2023 text/html Patient seen following endoscopic surgery she is August 07. She still has some left facial pressure, ear fullness and nasal discharge. No HL. Smell and taste ok. Been irrigating twice daily and using saline solution 3-4 times per day. Finished abx but got burning. No thrush. Holding CPAP ELENITA MONTANO MD [address] [facility] [address] [facility] [place],[address], [address], [facility] - [facility] 08/25/2023 14:22:37 09/28/2023 text/html Patient with chronic sinusitis status post left-sided surgery. She has a known rightward septal deviation and had mild sinus thickening on that side. We elected to proceed with left-sided surgery only. She notes significant improvement and just a little bit of congestion in the morning. ELENITA MONTANO MD 100 [facility],[place] [address], [place], [address], [place] - [facility] 09/28/2023 12:08:38 01/08/2024 text/html 63 year [...] offer some relief. GARRY LINK MD 100 [facility],[place] [address], [place], [address], [facility] - [facility] 01/08/2024 21:13:08 OBGyn Episode No OBEpisode recorded.
== END 2024-06-12 11:26 | disposition home or self-care (01) ==
LOC: HO.HOS 10:48
PROVIDERS: PCP Internal Medicine; Visit Provider Orthopaedic Surgery
DX: M25.561 Pain in right knee (principal); Z96.651 Presence of right artificial knee joint
CPT/HCPCS: 99213; G2211

== ENCOUNTER → 2024-06-12 10:49 | Outpatient (BNV) | payer MEDICARE, MEDICAID, SELFPAY | PROVIDERS: Visit Provider Radiology Diagnostic Radiology | DX: M25.561 Pain in right knee (principal) | CPT/HCPCS: 73562 ==

== ENCOUNTER 2024-06-12 12:39 | Outpatient (REF) | payer MEDICARE, MEDICAID, SELFPAY ==
--- NOTE | ~2024-06-12 | XR_ITS ---
EXAMINATION: XR KNEE 3 VIEWS RIGHT HISTORY: M25.561 - Pain in right knee COMPARISON: Comparison is made with the prior examination dated 12/04/2023. FINDINGS: Three views of the right knee are submitted. The patient is again noted to be status post total knee arthroplasty. The orthopedic elements are in anatomic alignment. There is no radiographic evidence of loosening. There is no fracture or dislocation. There is no joint effusion. XR/XR knee RT 3V IMPRESSION: Status post right total knee arthroplasty. Electronically signed by: Hudson Rico MD 06/14/2024 08:03 AM EDT
== END 2024-06-12 12:40 | disposition home or self-care (01) ==
LOC: HO.HOSX 12:39
PROVIDERS: Visit Provider Orthopaedic Surgery
DX: M25.561 Pain in right knee (principal); Z96.651 Presence of right artificial knee joint
CPT/HCPCS: 73562; 99212

== ENCOUNTER 2024-06-17 11:06 | Outpatient (AMB) | payer MEDICARE, MEDICAID, SELFPAY ==
--- NOTE | 2024-06-17 11:00 | MHC.WMTHER ---
Intake Intake Visit Reasons: VIDEO BH Intake Allergies No Known Allergies Allergy (Verified 06/12/24 11:02) [facility] Medical History (Updated 06/09/24 @ 15:33 by Gibran Palm MD) Insomnia Stress incontinence History of venous thromboembolism Insulin dependent type 2 diabetes mellitus Anxiety Bipolar 1 disorder Arthritis of right knee Fatty liver Asthma Hypothyroid DVT (deep venous thrombosis) Fibromyalgia HTN (hypertension) Chronic renal insufficiency Type 2 diabetes mellitus Bipolar disorder Depression Morbid obesity Chronic pulmonary embolism Sleep apnea GERD (gastroesophageal reflux disease) Elevated cholesterol Surgical History (Updated 05/27/24 @ 11:42 by Gibran Palm MD) History of right knee joint replacement History of esophagogastroduodenoscopy (EGD) H/O colonoscopy Hx of inguinal hernia repair Hx of sinus surgery Hx of shoulder surgery Hx of umbilical hernia repair Hx of arthroscopy of right knee History of bladder suspension procedure Hx of tonsillectomy H/O: hysterectomy History of ankle surgery Family History (Updated 05/16/24 @ 14:59 by LARISSA Dickson) Father Heart failure Diabetes HTN (hypertension) Maternal Aunt Diabetes Paternal Grandmother Diabetes Mother HTN (hypertension) Social History Household Members: Family Household Members Other:: takes care of parents Housing: House Are you a primary managed care liaison to a significant other at home: No Do you presently have visiting nurse or other home services: No Patient Tobacco Use Status: Former Tobacco user Tobacco use type: Cigarette Years Smoked: 30 service: No Current occupational status: retired Behavioral Health Assessment Weight Management Therapy Therapy Notes Details The patient is a 63-year-old female presenting for an initial behavioral health assessment as part of the surgical weight loss program. She reports being referred to the program by her cousin, who previously underwent bariatric surgery. In addition, both her managed care liaison and partner marketing intern have recommended weight loss to support improved health outcomes and better management of her medical conditions. Presenting Concerns Referral Source WMP-Provider. Reason for referral Completion of behavioral health assessment as part of process for weight-loss surgery. Precipitating Event Obesity. Living Situation Current Living Situation Own At risk of losing current housing? No Satisfied with current living situation? Yes Comments PT lives in a multifamily home, she is in the 3rd floor, her parents in the second floor and her aunt in the first floor. Food/Weight/Diet Expectations of change Initial goal is to Patient goals are PT is implementing the following: Current meal plan: Exercise plan: History/Relationship with food PT reports she used food as an emotional support In childhood, she was not allowed to leave the table without finishing her plate and got used to the stuffed sensation after eating, leading to overeating and weight gain. Example of meals before starting the program: Breakfast: Lunch: Dinner: Snacks: Drinks/Liquids: History/Relationship with weight In the last 10 years, the patient's Lowest weight was and highest Social History Family history and relationship PT is . She has 2 adult children who are . No grandchildren. She has 2 older siblings. PT has a good relationship with her family in general. 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 Father is 92, and her mother is 88. PT has been a caregiver for other relatives. Developmental history and status None reported Currently WNL. Social support A cousin (Taryn, who had surgery), a close friend, her parents and aunt. Community support Her therapist. PCP, managed care liaison, and partner marketing intern. Jewish/Spirituality Evangelical. Cultural/Ethnic information . Legal Involvement and History Current or historical involvement with the legal system? None reported Education Highest grade completed HS, some college. Preferred learning style Written and Visual Currently enrolled in educational program? No Interested in further educational program? 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 Employment Employment Status Retired (Legally disabled. ) Wants help to find employment? No Meaningful activities going to the [employer] [facility] [employer] a couple of times a year. Journaling, coloring. Financial Situation Describe current financial situation Occasional struggle and Often struggles with finance Financial assistance? Disability (SSD. ) Mental Health and Addiction Treatment Current/Past substance abuse? No Comments Alcohol: None Cigarettes/Tobacco: None Cannabis/Edibles: None Current/Past addictive behavior concerns? Yes Psychiatric history PT reports she has a history of Bipolar disorder type 1, anxiety, PT sees a therapist and a prescriber at [facility] in [place]. Has made a suicidal attempt years ago PT has been hospitalized 2 times, last time 6 years ago, due to a manic episode (couldn't sleep, very impulsive, overspending, irritability). Assessment & Plan Assessment & Plan (1) Bipolar 1 disorder: Code(s): F31.9 - Bipolar disorder, unspecified (2) Anxiety: Code(s): F41.9 - Anxiety disorder, unspecified (3) Pre-bariatric surgery psychological evaluation: Code(s): Z71.89 - Other specified counseling Plan The patient was not cleared today as the assessment remains incomplete. PT will follow up in two weeks to continue the evaluation. At the next visit, the PHQ-9 will be re-administered to reassess depressive symptoms and BES reviewed. Next Appointment: 07/01/2024 at 10am - Telehealth (video) Telehealth Telehealth Telehealth Platform: [facility] Location of provider rendering services: other Location of patient: address on file Patient Identification confirmed using: Name, : Yes Telehealth method: video Patient verbally consented to treatment: Yes Patient verbally consented to billing insurance company: Yes Patient informed of any privacy concerns related to visit: Yes Minutes spent on Phone/Video with Pt.: 60 Coding Level of Care Code New Pt Tele Psy Sonia Wyatt ([id number]) Patient Type New Diagnoses Bipolar 1 disorder F31.9 Anxiety F41.9 Pre-bariatric surgery psychological evaluation Z71.89 Time Spent (min) 60
--- OUTSIDE RECORDS SUMMARY | 2024-06-17 12:51 | XMS_ITS | Clinical Summary ---
Author Organization [facility] Address [address] [place] [address] Phone Care Team Providers Care Maintenance Mechanic Technician Name Role Phone Janak Greer MD Primary Care Provider [phone] Allergies No known active allergies Medications apixaban [...] 02/25/2020 DX:Depression Diabetes mellitus type 2, uncomplicated ([facility] V24, [facility] V28) 02/25/2020 DX:Diabetes mellitus type 2, uncomplicated (HCC) Bipolar disorder ([facility] V2 4, [facility] V28) 02/25/2020 DX:Bipolar disorder (HCC) SHAWN (obstructive sleep apnea) 02/25/2020 DX :SHAWN (obstructive sleep apnea) Severe obesity with body mas s index (BMI) of 35.0 to 39.9 with comorbidity (CMS/HCC V24, CMS/[facility] V28) 02/25/2020 DX:Severe obesity with body mass index (BMI) of 35.0 to 39.9 with comorbidity ([facility]) History of pulmonary embolus (PE) 02/25/2020 DX:History of pulmonary embolus (PE) Dyspnea 02/25/2020 DX:Dyspnea Blood clotting tendency ([facility] V24) DX:Blood clotting tendency (HCC) Diabetes mellitus ([facility] V 24, [facility] V28) DX:Diabetes mellitus (HCC) High blood [...] Maintenance Results * COLONOSCOPY Anesthesia - MAC; [facility] (03/04/2024 8:56 AM EST) Anatomical Region [...] previously scheduled. Narrative 03/04/2024 8:[address] [facility] Patient Name: Esperanza Dean Procedure Date: [...] Procedure Code(s): ? --- Professional --- ? 35926, Colonoscopy, flexible; diagnostic, including ? collection of specimen(s) by brushing or washing, when ? performed (separate procedure) Diagnosis Code(s): ? --- Professional --- ? Z12.11, Encounter for screening for malignant neoplasm ? of colon CPT copyright 2020 [employer]. All rights reserved. The codes documented in this report are preliminary and upon electrical equipment technician review may be revised to meet current compliance requirements. Yovanny Harvey MD 03/04/2024 8:56:08 AM This report has been signed electronically.Yovanny Harvey MD Number of Addenda: 0 Note Initiated On: 03/04/2024 8:33 AM Scope In: Scope Out: ? Endoscopy Department at [facility] - [address] [place] [address], ? [place] [address] Procedure Note Yovanny Harvey MD - 03/04/2024 [facility] Patient Name: Esperanza Dean Procedure Date: [...] retroflexion views. Procedure Code(s): --- Professional --- 70390, Colonoscopy, flexible; diagnostic, including collection of specimen(s) by brushing or washing,when performed (separate procedure) Diagnosis Code(s): --- Professional --- Z12.11, Encounter for screening for malignantneoplasm of colon CPT copyright 2020 [employer]. All rights reserved. The codes documented in this report are preliminary and upon electrical equipment technician reviewmay be revised to meet current compliance requirements. Yovanny Harvey MD 03/04/2024 8:56:08 AM This report has been signed electronically.Yovanny Harvey MD Number of Addenda: 0 Note Initiated On: 03/04/2024 8:33 AM Scope In: Scope Out: Endoscopy Department at [facility] - [address] [place] [phone] IMPRESSION: - Diverticulosis in the sigmoid colon. [...] MEDICARE ADVANTAGE [place] Care Teams Maintenance Mechanic Technician Relationship Specialty Start Date End Date Janak Greer MD PCP - General Internal Medicine 05/26/08
--- OUTSIDE RECORDS SUMMARY | 2024-06-17 12:51 | XMS_ITS | Encounter Summary ---
Author Organization [facility] Address [address] [address] Phone Care Team Providers Care Leach Runner Name Role Phone Janak Greer MD Primary Care Provider [phone] Encounter Details Date Type Department Care Team (Late Contact Info) Description 05/27/2021 Documentation Only [facility] [address] [place] [address] Kelechi Moran MD [address] [place] [address] [place] [address] Social History Tobacco Use Types [...] [facility] [address] [place] [address] Kelechi Moran MD [address] [place] [address] [place] [address] documented as of this encounter Visit Diagnoses Not on filedocumented in this encounter Care Teams Leach Runner Relationship Specialty Start Date End Date Janak Greer MD [address] PCP - General 12/18/18 documented as of this encounter
--- OUTSIDE RECORDS SUMMARY | 2024-06-17 12:51 | XMS_ITS | Encounter Summary ---
Author Organization [facility] Address [address] [place] [address] Care Team Providers Care Song Lyricist Name Role Phone Janak Greer MD Primary Care Provider [phone] Encounter Details Date Type Department Care Team (Late st Contact Info) Description 09/30/2022 Refill [facility] [address] [address] Rommel Whyte MD [address] [place] [address] [place] [phone] Chronic pain of left ankle Social History [...] ankle documented in this encounter Care Teams Song Lyricist Relationship Specialty Start Date End Date Janak Greer MD [address] [place] [address] PCP - General Internal Medicine 08/09/22 documented as of this encounter
--- OUTSIDE RECORDS SUMMARY | 2024-06-17 12:51 | XMS_ITS | Encounter Summary ---
Author Organization [facility] Address [address] [address] Phone Care Team Providers Care Court Officer Name Role Phone Janak Greer MD Primary Care Provider [phone] Encounter Details Date Type Department Care Team (Late Contact Info) Description 05/17/2021 Documentation Only [facility] [address] [place] [address] Kelechi Moran MD [address] [place] [place] [address] [place] [address] Social History Tobacco Use Types [...] Visit [facility] [address] [place] [address] Kelechi Moran MD [address] [place] [address] [place] [address] documented as of this encounter Visit Diagnoses Not on filedocumented in this encounter Care Teams Court Officer Relationship Specialty Start Date End Date Janak Greer MD [address] PCP - General 12/18/18 documented as of this encounter
--- OUTSIDE RECORDS SUMMARY | 2024-06-17 12:51 | XMS_ITS | Encounter Summary ---
Author Organization [facility] Address [address] [place] [address] Care Team Providers Care Store Team Member Name Role Phone Janak Greer MD Primary Care Provider [phone] Encounter Details Date Type Department Care Team (Late st Contact Info) Description 09/27/2022 Scanned Document [facility] [address] [address] Rommel Whyte MD [address] [place] [address] Social History Tobacco Use Types Packs/Day Years [...] on filedocumented in this encounter Care Teams Store Team Member Relationship Specialty Start Date End Date Janak Greer MD [address] [place] [address] PCP - General Internal Medicine 08/09/22 documented as of this encounter
--- OUTSIDE RECORDS SUMMARY | 2024-06-17 12:51 | XMS_ITS | Encounter Summary ---
Author Organization [facility] Address [address] [place] [address] Care Team Providers Care Neon Pumper Name Role Phone Janak Greer MD Primary Care Provider [phone] Encounter Details Date Type Department Care Team (Late st Contact Info) Description 09/28/2022 Telephone [facility] [address] [place] [phone] Rommel Whyte MD [address] [place] [phone] Social History Tobacco Use Types Packs/Day Years [...] on filedocumented in this encounter Care Teams Neon Pumper Relationship Specialty Start Date End Date Janak Greer MD [address] [place] [address] PCP - General Internal Medicine 08/09/22 documented as of this encounter
--- OUTSIDE RECORDS SUMMARY | 2024-06-17 12:51 | XMS_ITS | Patient Health Record ---
Author Organization [facility] Address [address] [place] [address] Care Team Providers Care Slot Machine Mechanic Name Role Phone Caprice Staples Unavailable [phone] Reason For Referral No Information Medications Medication SIG (Take, Route, Frequency, Duration) Notes Start Date End Date Status Topiramate 50MG 1 ORAL twice daily for [facility] 04/11/19 14 Active metFORMIN HCl 500MG 1 ORAL four times da negro for [facility] 04/11/2013 Active Luz 0.05MG 1 patch to skin Transdermal TWICE WEEKLY [facility] 04/04/2013 Active Vitamin D3 5,000 IU 1 ORAL daily for [facility] 04/11/2013 Active PriLOSEC OTC 20 MG 1 tablet Orally Once a day Active Atorvastatin Calcium 80 MG 1 tablet Oral ly Once a day Active Aspirin EC 81MG 1 ORAL daily for [facility] 04/11/2013 Active Abilify 2MG 1 ORAL daily for [facility] 04/11/2013 Active Restasis 0.05 % 1 into affected eye Ophthalmic Twice a day Active Luz 0.05 MG/24HR 1 patch to skin Transdermal TWICE WEEKLY for 90 days 07/22/2014 Active LORazepam 1MG 1 ORAL three times d aily for [facility] 04/11/2013 Active glipiZIDE 5MG ORAL three times greg ly for [facility] 04/11/2013 Active Cymbalta 60MG 1 ORAL daily for [facility] 04/11/2013 Active Problems Problem Type SNOMED Code ICD Code Onset Dates Problem Status W/U Status Risk Notes Problem Type II diabetes mellitus uncontrolled (730237438) Diabetes mellitus without mention of complication, type II or unspecified type, uncontrolled (250.02) Active confirmed Diag Problem Hyperlipidemia (61057423) Other and unspecified hyperlipidemia (272.4) Active confirmed Major Problem Menopausal symptom (20357803) Symptomatic menopausal or female climacteric states (627.2) Active confirmed Diag Problem Muscle pain (08578141) Unspecified myalgia and myositis (729.1) Active confirmed Major Problem Gynecological examination normal (459967429231140) Routine gynecological examination (V72.31) Active confirmed Major Plan Of Treatment Pending Test Test Name Order Date MAMMOGRAM, SCREENING 07/22/2014 Insurance Providers Payer Name Payer Address Payer Phone Subscriber Number Group Number Insured Name Patient Relationship to Insured Coverage Start Date Coverage End Date [employer] MEDICARE ADVANTAGE [facility] [address] [place] [address] [phone] [id number] CHEVY WOLF Self - patient is the [...]
--- OUTSIDE RECORDS SUMMARY | 2024-06-17 12:51 | XMS_ITS | Encounter Summary ---
Author Organization [facility] Address [address] [place] [address] Care Team Providers Care Equal Opportunity Representative Name Role Phone Janak Greer MD Primary Care Provider [phone] Encounter Details Date Type Department Care Team (Late st Contact Info) Description 06/06/2023 Scanned Document [address] [place] [phone] Provider, Generic Social History Tobacco Use Types [...] on filedocumented in this encounter Care Teams Equal Opportunity Representative Relationship Specialty Start Date End Date Janak Greer MD [address] [place] [address] PCP - General Internal Medicine 08/09/22 documented as of this encounter
--- OUTSIDE RECORDS SUMMARY | 2024-06-17 12:51 | XMS_ITS | Encounter Summary ---
Author Organization [facility] Address [address] [place] [address] Care Team Providers Care Traffic Routing Engineer Name Role Phone Janak Greer MD Primary Care Provider [phone] Reason for Visit * Reason Comments Med Change Request Encounter Details Date Type Department Care Team ([facility] st Contact Info) Description 10/04/2022 [facility]ill [facility] [address] [place] [address] [address] Leslie Howell PA-C [address] [place] [phone] Visit for wound check Social History Tobacco [...] check documented in this encounter Care Teams Traffic Routing Engineer Relationship Specialty Start Date End Date Janak Greer MD [address] [place] [address] PCP - General Internal Medicine 08/09/22 documented as of this encounter
--- OUTSIDE RECORDS SUMMARY | 2024-06-17 12:51 | XMS_ITS | Encounter Summary ---
Author Organization [facility] Address [address] [address] Phone Care Team Providers Care Internet Technology Manager Name Role Phone Janak Greer MD Primary Care Provider [phone] Encounter Details Date Type Department Care Team (Late Contact Info) Description 05/20/2021 Documentation Only [facility] [address] [place] [address] Kelechi Moran MD [address] [place] [address] [place] [address] Social History Tobacco Use Types [...] Visit [facility] [address] [place] [address] Kelechi Moran MD [address] [place] [address] [place] [address] documented as of this encounter Visit Diagnoses Not on filedocumented in this encounter Care Teams Internet Technology Manager Relationship Specialty Start Date End Date Janak Greer MD [address] PCP - General 12/18/18 documented as of this encounter
--- OUTSIDE RECORDS SUMMARY | 2024-06-17 12:51 | XMS_ITS | Encounter Summary ---
Author Organization [facility] Address [address] [place] [address] Care Team Providers Care Broke Man Name Role Phone Janak Greer MD Primary Care Provider [phone] Encounter Details Date Type Department Care Team (Late st Contact Info) Description 10/07/2022 Telephone [facility] [address] [place] [phone] Rommel Whyte MD [address] [place] [phone] Social History Tobacco Use Types Packs/Day Years [...] on filedocumented in this encounter Care Teams Broke Man Relationship Specialty Start Date End Date Janak Greer MD [address] [place] [address] PCP - General Internal Medicine 08/09/22 documented as of this encounter
--- OUTSIDE RECORDS SUMMARY | 2024-06-17 12:52 | XMS_ITS | Data Portability ---
Author Organization [place] [facility] Franca Grullon [place] Address [address] [place] [address] Care Team Providers [facility] Name Role Phone ANUSHA VOGEL Primary Care [...] In the meantime she will continue with lwhk-hog-gnhpxtp pain medication. We will set up the [...] degrees. The knee is stable within that pjlug-rq-ususji to AP and ML stress. The alignment [...] is intact. MRI: Left wrist performed at [facility] April 05, 2023 reveals equivocal subluxation [...] degrees. The knee is stable within that jtluq-xj-wvbmvk to AP and ML stress. The alignment [...] for right total knee replacement, robotic assisted, [place] joint replacement [place]. Not available 05/26/2023 10:08:43 Plan of Treatment Reminders Order Date Submit Date Provider Last Modified By Organization Details Last Modified Time Details Appointments None recorded. Lab None recorded. Referral None recorded. Procedures None recorded. Surgeries total knee arthroplast y (SURG) 2023 024 [email or web address] 0 Not available 10:19:12 Imaging XR, knee, 4 or more view 2023 024 [email or web address] [facility], [address], [place], [address], 11:11:12 MRI, wrist, w/o contrast - Evaluate ECU/sixth extensor compartment for tenosynovit is.Please call patient to schedule and hand carry CD 2023 024 [email or web address] [facility], [address] [place], [address], 09:42:37 Medication Orders None recorded. Patient TargetsNo targets recorded. Patient Instructions Encounter Date Encounter Id Patient Instructions Last Modified By Organization Details Last Modified Time 03/24/2023 [id number] AP, lateral, Melchor, and patellar view radiographs of the right knee taken today demonstrate right knee degenerative joint disease with joint space narrowing, osteophyte formation, and subchondral sclerosis. there is tjfj-ew-hftu articulation in the medial compartment. Not available 03/24/2023 11:00:11 Reason for Referral None Reported. Results Created Date Observation Date Name Description Value Unit Range Abnormal Flag Note LastModifiedBy Organization Detail LastModifiedTime 04/18/19 24 04/05/2023 MRI, wrist , w/o contr ast No observ ation record ed. [email or web address] [facility] [address] [place], [address], 04/18/2023 15:46:48 04/27/19 MRI, wrist , w/o contr ast No observ ation record ed. [email or web address] [facility] [address] [place], [address], 04/27/2023 08:42:31 Result Notes None recorded. 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 936454808 Active 2022 Dallin Lima MD [address], [facility] [place], [address], [place] [facility], [facility] 3 17:40:16 Arthritis of first carpometaca rpal joint of left hand 8322711482481 103 Active 2022 Dallin Lima MD [address], [facility] [place], [address], [place] [facility], [facility] 3 17:40:30 Instability of joint of right knee 7545533030835 102 Active 2022 TERESA SHINE PA-C [address], [place], [address], [place] [facility], [facility] 3 09:18:55 Effusion of joint of right knee 1416660372277 04 Active 2022 TERESA SHINE PA-C [address], [place], [address], [place] [facility], [facility] 3 10:05:35 Osteoarthri tis of right knee joint 2162594574656 00 Active 2022 TERESA SHINE PA-C [address], [place], [address], [place] [facility], [facility] 3 12:46:54 Problem Notes None recorded. Procedures Surgical History Date Name Laterality Status Provider Name and Address Organization Details Recorded Time 02/22/19 24 AONE tendon sheath cortisone injection completed Dallin Lima MD [address], [place], [address], [place] [facility] 02/22/2023 10:43:39 12/30/19 23 Knee Joint/Bursa Asp & Inj completed TERESA SHINE PA-C [address], [place], [address], [place] [facility] 12/29/2022 10:03:04 12/21/19 23 Knee Joint/Bursa Asp & Inj completed TERESA SHINE PA-C [address], [place], [address], [place] [facility] 12/20/2022 13:29:41 09/16/19 23 Knee Joint/Bursa Asp & Inj completed TERESA SHINE PA-C [address], [place], [address], [place] [facility] 09/15/2022 07:52:52 08/25/19 23 AONE tendon sheath cortisone injection completed Dallin Lima MD [address], [place], [address], [place] [facility] 08/24/2022 12:40:55 06/21/19 23 Knee Joint/Bursa Asp & Inj completed TERESA SHINE PA-C [address] [facility],[address], [place], [address], [place] [facility] 06/19/2022 23:48:21 hysterectomy completed [facility] [place] [facility] 12/29/2022 08:44:02 procedure on urinary bladder completed [facility] [place] [facility] 12/29/2022 08:44:53 procedure on shoulder completed [facility] [place] [facility] 12/29/2022 08:45:08 hernia repair completed [facility] [place] [facility] 12/29/2022 08:45:14 Imaging Results Imaging Date Name Status LastModified by Organiz ation Details LastModified Time 04/05/2023 MRI, wrist, w/o contrast completed [email or web address] [facility] [address] [place], [address], 04/18/2023 15:46:48 04/27/2023 MRI, wrist, w/o contrast completed [email or web address] [facility] [address] [place], [address], 04/27/2023 08:42:31 Procedure Notes None recorded. Medical [...] Updated DateTime 03/24/2023 162.56 cm 45.3 kg/m2 316104.[address] [place] [facility] 03/24/2023 10:44:14 Date Recorded Body height Body mass index (BMI) Body weight Provider Name and Address Organization Details Last Updated DateTime 05/26/2023 162.56 cm 44.3 kg/m2 050687.[address] [place] [facility] 05/26/2023 09:56:04 Social History Question Answer Notes LastModified by Organizat ion Details LastModified Time Tobacco Smoking Status Former Smoker Beatriz gottlieb, [place] [facility] 12/29/2022 08:46:38 What Is Your Level [...] Anemia N Brain Injury N Heart Attack ([place]) N Osteopenia N Diabetes Y Bleeding Disorder [...] Code Diagnosis Note [id number] MD BRANDEN Curran [address] [address] 06/08/2022 11:44:59 06/08/2022 12:08:20 Extensor tenosynovitis of wrist 284403101 M65.839 [id number] ELVIE GUTIERREZ [facility] [address] [place] [address] 06/20/2022 11:03:15 06/20/2022 11:48:20 Pain of right knee joint 8306310710 33452 M25.561 Osteoarthr itis of right knee joint 7596686230 50390 M17.11 [id number] MD BRANDEN Curran [address] [address] 06/29/2022 10:05:38 06/29/2022 11:00:28 Pain of left wrist 3482141691 87168 M25.532 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 5406720836 06109 G56.02 [id number] MD BRANDEN Curran [place] [address] 08/03/2022 10:36:47 08/03/2022 11:31:14 Extensor tenosynovitis of wrist 513219742 M65.839 Arthritis of first carpometacarpal joint of left hand 3905404533 689107 M13.842 [id number] MD BRANDEN Curran [place] [address] 08/24/2022 11:23:15 08/24/2022 11:57:21 Extensor tenosynovitis of wrist 554620366 M65.8[place] [id number] ELVIE GUTIERREZ [employer] [facility] 299 [facility] [address] [place] [address] 09/15/2022 10:34:27 09/15/2022 11:35:33 Osteoarthritis of right knee joint 9856098049 32350 M17.11 [id number] ELVIE GUTIERREZ [facility] [address] [place] [address] 12/20/2022 09:13:41 12/20/2022 10:01:14 Osteoarthritis of right knee joint 5005873589 38562 M17.11 [id number] ELVIE GUTIERREZ [facility] [address] [place] [address] 12/29/2022 08:17:47 12/29/2022 09:01:45 Osteoarthritis of right knee joint 3734144976 02640 M17.11 Instabilit y of joint of right knee 3643806634 822575 M25.361 Effusion o f joint of right knee 8828107526 49959 M25.461 Right knee joint effusion [id number] ELVIE GUTIERREZ [facility] [address] [address] 01/03/2023 14:25:07 01/03/2023 15:04:47 Instability of joint of right knee 1863907952 437126 M25.361 Nonbillabl e visit [id number] ELVIE GUTIERREZ [facility] [address] [address] 01/11/2023 10:36:20 01/11/2023 11:21:09 Instability of joint of right knee 0174982726 095380 M25.361 Osteoarthr itis of right knee joint 7866824043 99226 M17.11 [id number] MD BRANDEN Curran [place] [address] [facility] [address] [place] [address] 02/22/2023 09:50:34 02/22/2023 10:26:40 Extensor tenosynovitis of wrist 382379216 M65.839 Left ECU [id number] ELVIE GUTIERREZ [facility] [address] [address] 03/16/2023 10:50:05 03/16/2023 11:32:54 Osteoarthritis of right knee joint 8611962563 20835 M17.11 [id number] MD BRANDEN Curran [place] [address] [place] [address] 03/22/2023 11:22:58 03/22/2023 11:37:45 Synovitis and tenosynovitis of joint of wrist 0561895471 M67.834 Left ECU [id number] MD BRANDEN Santiago [facility] 299 [facility] [address] [place] [address] 03/24/2023 10:25:15 03/24/2023 10:59:45 Pain of right knee joint 3586552217 89261 M25.561 Osteoarthr itis of right knee joint 6215062372 91054 M17.11 [id number] MD BRANDEN Curran [place] [address] [address] 04/19/2023 11:05:25 04/19/2023 11:34:04 Extensor tenosynovitis of wrist 703720464 M65.839 Left ECU [id number] MD BRANDEN Santiago [facility] 299 [facility] [address] [place] [address] 05/26/2023 09:16:00 05/26/2023 10:12:04 Osteoarthritis of right knee joint 2301457560 76752 M17.11 Arthritis of knee 093416 002 M13.869 Health Concerns Section Related Observation LastModified by Organization Detai ls LastModified Time None Recorded Concern Status LastModified by Organization Details LastModified Time None Recorded Advance Directives Directive None Recorded Payers Encounter Date Sequence Insurance Name Policy Number Policy Azul Covered Member ID Azul Member ID Guarantor Name 03/16/2023 1 [employer] MED[employer] ADVANTAGE PLAN (MEDICARE REPLACEMENT HMO) [id number] Esperanza Dean [id number] Esperanza Dean 03/16/2023 2 [place] [facility] Esperanza Dean [id number] Esperanza Dean 03/22/2023 1 [facility] MEDICARE ADVANTAGE PLAN (MEDICARE REPLACEMENT HMO) [id number] Esperanza Dean [id number] Esperanza Dean 03/24/2023 1 [employer] [place] [employer] MEDIC[employer] ADVANTAGE PLAN (MEDICARE REPLACEMENT HMO) [id number] Esperanza Dean [id number] Esperanzamurtaza Loveelin 03/24/2023 2 [place] [facility] Esperanza Loveelin [id number] Esperanzamurtaza Loveelin 04/19/2023 1 [employer] [place] MED[employer] ADVANTAGE PLAN (MEDICARE REPLACEMENT HMO) [id number] Esperanza Loveelin [id number] Esperanzamurtaza Loveelin 05/26/2023 1 [employer] [place] [employer] MEDIC[employer] ADVANTAGE PLAN (MEDICARE REPLACEMENT HMO) [id number] Esperanza Dean [id number] Esperanza Dean 05/26/2023 2 [place] [facility] Esperanza Loveelin [id number] Esperanza Dean Notes Date Note Type Note [...] she is on Eliquis. TERESA SHINE PA-C [address] [place] [address], [address], [place] [facility], 03/16/2023 12:32:58 OBGyn Episode No OBEpisode recorded.
--- OUTSIDE RECORDS SUMMARY | 2024-06-17 12:52 | XMS_ITS | Data Portability ---
Author Organization [place] - [facility], Allergy Address [address] [address] Care Team Providers Care Gardener Florist Name Role Phone LELAANUSHA Primary Care Provider [phone] Assessment Encounter Date Assessment Date Assessment LastModified [...] in 1-2 weeks as scheduled for reevaluation. [email or web address] Not available 08/10/2023 16:45:14 09/28/2023 09/28/2023 Patient [...] [facility] Of [facility], 100 [place], [address], 4 14:09:46 Medication Orders doxycyclin e hyclate 100 mg capsule [address] [id number], [phone] [place], [address], 4 11:38:28 fluticason e propionate 50 mcg/actuat ion nasal spray,susp ension 2023 024 [facility]/Pharmacy #[id number], [phone] [place], [address], 4 12:08:06 Patient TargetsNo targets recorded. Patient [...] No observ ation record ed. [email or web address] Ents [address], [address], 07/24/2023 12:41:01 07/26/19 24 audio gram No observ ation record ed. BARCODE Not Available 2023 12:46:02 08/08/19 24 07/24/2023 CT, sinus es, w/o contr ast No observ ation record ed. [facility] [address], [address], 08/08/2023 22:58:50 Result Notes None recorded. Problems Name Problem SNOMED Code Status Onset Date Resolution Date Notes Provider Name and Address Organization Details Recorded Time Benign paroxysma l positiona l vertigo 344885638 Active 2020 Benign paroxysma l vertigo, unspecifi ed ear; Note: Date Diagnosed : 04/14/2020 10:02 AM (H81.10) Not Available [facility] 4 02:26:19 Otorrhagi a of right ear 49626938253 67853 Active 2022 Otorrhagi a, right ear; Note: Date Diagnosed : 06/14/2022 2:51 PM (H92.21) Not Available Critical access hospital 4 02:26:40 Disturban ce of salivary secretion 04058678 Active 2021 Xerostomi a; Note: Date Diagnosed : 09/30/2021 11:57 AM (K11.7) Not Available Critical access hospital 4 02:26:26 Bilateral temporoma ndibular joint pain 93103318426 116638 Active 2022 Arthralgi a of bilateral temporoma ndibular joint; Note: Date Diagnosed : 05/10/2022 2:35 PM (M26.623) Arthral justin of bilateral temporoma ndibular joint; Note: Date Diagnosed : 04/14/2020 10:02 AM (M26.623) ; Start Date : Not Available Critical access hospital 4 02:26:33 Gastroeso phageal reflux disease without esophagit is 481019691 Active 2021 Gastro-es ophageal reflux disease without esophagit is; Note: Date Diagnosed : 04/15/2021 10:11 AM (K21.9) Not Available Critical access hospital 4 02:26:18 Sensorine ural hearing loss of bilateral ears 660821112 Active 2020 Sensorine ural hearing loss, bilateral ; Note: Date Diagnosed : 04/14/2020 10:03 AM (H90.3) Not Available Critical access hospital 4 02:26:31 Allergic rhinitis caused by pollen 85471728 Active 2021 Allergic rhinitis due to pollen; Note: Date Diagnosed : 09/30/2021 11:57 AM (J30.1) Not Available Critical access hospital 4 02:26:46 Bleeding from nose 520199936 Active 2022 Epistaxis ; Note: Date Diagnosed : 05/10/2022 2:35 PM (R04.0) Not Available Critical access hospital 4 02:26:44 Chronic sinusitis 52862485 Active 2023 ELENITA KANG MD [address] [place] [address], [place], [address] , [facility] - [facility] 4 21:08:07 Deviated nasal septum 746235749 Active 2023 ELENITA KANG MD 100 [facility] [place], [place], [address] , [place] [facility] 4 21:08:13 Abnormal auditory perceptio n 11295492 Active 2023 ELENITA KANG MD 100 [facility] [place] [address], [place], [address] , [place] [facility] 4 12:02:38 Chronic left maxillary sinusitis 83697049118 758158 Active 2023 ELENITA KANG MD 100 [facility],[place] [address], [place], [address] , [place] [facility] 4 14:04:57 Obstructi ve sleep apnea syndrome 48744241 Active 2023 ELENITA KANG MD 100 [facility],[place] [address], [place], [address] , [place] [facility] 4 14:22:09 Chronic maxillary sinusitis 96281754 Active 2023 Chronic maxillary sinusitis ; Note: Date Diagnosed : 06/12/2023 11:15 AM (J32.0) Not Available Critical access hospital 4 02:26:21 Acute maxillary sinusitis 75125952 Active 2023 Acute maxillary sinusitis , unspecifi ed; Note: Date Diagnosed : 04/25/2023 11:27 AM (J01.00) Not Available Critical access hospital 4 02:26:24 Problem Notes None recorded. Procedures Surgical History Date Name Laterality Status Provider Name and Address Organization Details Recorded Time 01/08/20 24 NasalEndoscopy_DP completed MARVIN CHEUNG PA-C 100 [facility],[place] [address], [place], [address], [facility] 01/08/2024 12:45:15 09/28/19 24 JMSNasal/Sinus Endoscopy-PRIOR surgical cavities completed ELENITA MONTANO MD 100 [facility] [place] [address], [place], [address], [place] - [facility] 09/28/2023 12:07:20 08/25/19 24 JMSNasal/Sinus Endoscopy-DEBRIDE MENT completed ELENITA MONTANO MD [address], [address], [facility] - [facility] [place] 08/25/2023 14:20:40 08/10/19 24 JMSNasal/Sinus Endoscopy-DEBRIDE MENT completed RAMYA BHATTI PA-C [address], [address], [facility] - [facility] [place] 08/10/2023 16:43:40 08/08/19 24 ENDOSCOPY, NASAL/SINUS W/ PARTIAL ETHMOIDECTOMY (SURG) completed Nacho Aldana [place] - [facility] 08/11/2023 13:52:45 07/24/19 24 JMSNasal/Sinus Endoscopy completed ELENITA MONTANO MD [address] [place] [address], [address], [facility] - [facility] 07/24/2023 12:01:33 07/24/19 24 SRT & Tymps - [address] & [address] completed Leah Donaldson [place] - [facility] 07/24/2023 12:28:03 Imaging Results Imaging Date Name Status LastModified by Organiz ation Details LastModified Time 07/24/2023 CT, sinuses, w/o contrast completed [facility] Ents [address], [address], 07/24/2023 12:41:01 07/26/2023 audiogram completed BARCODE Information no t available 07/26/2023 12:46:02 07/24/2023 CT, sinuses, w/o contrast completed [facility] [address], [address], 08/08/2023 22:58:50 Procedure Notes None recorded. Medical [...] mg tablet 09/30 completed Medicati on ID: [id number] B rand Name: furosemi de Send Method: E-Prescr ibed Sub s Allowed: subs OK Medic ationGen ericName : furosemi de Not Available Not Available Not Available Miralax 17 gram/dose oral powder 09/30 completed Medicati on ID: [id number] B rand Name: Miralax Send Method: E-Prescr [...] pack Take 06/11 completed Medicati on ID: [id number] P rescribe d By Name: Joleen Cruz MD Brand Name: Medrol (Jeff) Se nd Method: E-Prescr ibed Sub s Allowed: subs OK Speci al Instruct ion: take as instruct ed Medic ationGen ericName : Medrol (Jeff) Not Available Not Available Not Available prednison e 20 mg tablet by mouth 2023 active Medicati on ID: [id number] B rand Name: predniso ne Send Method: [...] tended release 09/30 completed Medicati on ID: [id number] B rand Name: Tylenol Arthriti s Pain [...] mg tablet 09/30 completed Medicati on ID: 589286 B rand Name: oxcarbaz epine Se nd Method: E-Prescr ibed Sub s Allowed: subs OK Medic ationGen ericName : oxcarbaz epine Not Available Not Available Not Available acetamino phen 300 mg-codein e 30 mg tablet active Medicati on ID: [id number] B rand Name: acetamin ophen-co deine Se [...] mcg tablet 09/30 completed Medicati on ID: 117747 B rand Name: levothyr oxine Se nd Method: E-Prescr ibed Sub s Allowed: subs OK Medic ationGen ericName : levothyr oxine Not Available Not Available Not Available hydrocort isone 2.5 % topical cream with perineal applicato r 06/11 completed Medicati on ID: [id number] B rand Name: hydrocor tisone S end [...] 100 mg tablet active Medicati on ID: 846339 B rand Name: trazodon e Send Method: E-Prescr ibed Sub s Allowed: subs OK Medic ationGen ericName : trazodon e Medica tion ID: [id number] B rand Name: trazodon e Send Method: E-Prescr ibed Sub s Allowed: subs OK Medic ationGen ericName : trazodon e Not Available Not Available Not Available benzonata te 100 mg capsule TAKE 1 CAPSULE BY MOUTH THREE TIMES A DAY FOR 3 DAYS active Not Available Not Available No t Available levothyro xine 50 mcg tablet active Medicati on ID: 826546 B rand Name: levothyr oxine Se nd Method: E-Prescr ibed Sub s Allowed: subs OK Medic ationGen ericName : levothyr oxine Not Available Not Available Not Available cephalexi n 500 mg capsule TAKE 1 CAPSULE BY MOUTH FOUR TIMES A DAY active Not Available Not Available No t Available tacrolimu s 0.1 % topical ointment 06/11 completed Medicati on ID: [id number] B rand Name: tacrolim us Send Method: [...] mg tablet 06/11 completed Medicati on ID: 900860 B rand Name: hydroxyz ine HCl Send [...] nasal spray 09/30 completed Medicati on ID: 999855 B rand Name: azelasti ne Send Method: [...] unit) tablet 09/30 completed Medicati on ID: 798265 B rand Name: Vitamin D3 Send Method: E-Prescr ibed Sub s Allowed: subs OK Medic [facility] ericName : Vitamin D3 Not Available [...] as directed 2022 active Medicati on ID: 384197 D uration Value: 14 Brand Name: Ciprodex Send Method: E-Prescr ibed Sub s Allowed: subs OK [facility] Not Available Not Available Not Available escitalop brittany 5 mg tablet TAKE 1 TABLET BY MOUTH ONCE DAILY. TAKE TOGETHER WITH 20 MG FOR TOTAL OF 25 MG PER DAY active Not Available Not Available No t Available Cinnamon 500 mg capsule 09/30 completed Medicati on ID: 322889 B rand Name: Cinnamon Send Method: E-Prescr ibed Sub s Allowed: subs OK [facility] : Cinnamon Not Available [...] mcg tablet 09/30 completed Medicati on ID: [id number] B rand Name: Centrum Silver Women Se [...] ous pen injector active Medicati on ID: 086431 B rand Name: Mounjaro Send Method: E-Prescr ibed Sub s Allowed: [...] Updated DateTime 08/10/2023 162.56 cm 43.9 kg/m2 598933.65 g Deborah Godfrey [place] - [facility] 08/10/2023 15:56:40 Date Recorded Body height Provider Name an d Address Organization Details Last Updated DateTime 08/25/2023 162.56 cm Jacob Bishop [place] - [facility] 08/25/2023 14:03:50 Date Recorded Body height Body mass index (BMI) Body weight Provider Name and Address Organization Details Last Updated DateTime 09/28/2023 162.56 cm 43.4 kg/m2 232781.87 g Jacob Bishop [place] - [facility] 09/28/2023 11:59:23 Date Recorded Body height Body mass index (BMI) Body weight Provider Name and Address Organization Details Last Updated DateTime 07/24/2023 162.56 cm 43.9 kg/m2 679644.65 g Jacob Bishop [place] [facility] 07/24/2023 11:37:39 Social History None recorded. [...] Note 3245 ELENITA KANG MD [facility] [place] [address] [place] [address] 07/24/2023 10:58:36 07/24/2023 13:19:59 Chronic sinusitis 56329299 J32.9 J32.8 Because of increased symptoms on [...] handout was given Deviated nasal septum 12 1284965 J34.2 Abnormal a uditory perception 10758191 H93.293 Tymp and SRT reviewedA speech awareness threshold test, tympanomet ry, and distortion product otoacousti c emission test were performed. Results are as follows: Speech Awareness/ Transcription Typist Test: Right Ear:{{with in normal limits 0 [...] seal}} [id number] RAMYA BHATTI PA-C [facility] 100 [place] [address] 08/10/2023 15:42:46 08/10/2023 16:16:37 Chronic sinusitis 62124937 J32.8 Postoperative visit 1836 75237 Z48.89 7238 ELENITA KANG MD [facility] 100 [place] [address] 08/25/2023 13:59:35 08/25/2023 14:34:07 Chronic left maxillary sinusitis 6612737812 2137816 J32.0 No residual infection. Debridemen t performed. Suggest gentle irrigation to avoid ear symptoms. Burning mouth has improved. She can take some probiotics . Follow-up 4 weeks. Abnormal a uditory perception 00991020 H93.293 No fluid Obstructiv e sleep apnea syndrome 55027744 G47.33 Resume CPAP 17308 ELENITA KANG MD [facility] 100 [place] [address] 09/28/2023 11:30:17 09/28/2023 12:14:30 Chronic left maxillary sinusitis 6659508237 0097475 J32.0 No residual infection. Debridemen t performed. Suggest gentle irrigation to avoid ear symptoms. Burning mouth has improved. She can take some probiotics . Follow-up 4 weeks. Deviated nasal septum 12 2183631 J34.2 55313 MARVIN CHEUNG PA-C [facility] 100 [place] [address] 01/08/2024 10:59:57 01/08/2024 11:42:28 Deviated nasal septum 307492525 J34.2 right Chronic le ft maxillary sinusitis 2425030094 7763432 J32.0 Health Concerns Section Related Observation LastModified by Organization Detai ls LastModified Time None Recorded Concern Status LastModified by Organization Details LastModified Time None Recorded Advance Directives Directive None Recorded Payers Encounter Date Sequence Insurance Name Policy Number Policy Azul Covered Member ID Azul Member ID Guarantor Name 07/24/2023 2 [place] [facility] Esperanza Sales Dianne [id number] Esperanza M Dianne 07/24/2023 1 [place] [id number] Esperanzamurtaza Sales Dianne [id number] Esperanza M Dianne 08/10/2023 2 [place] [facility] Esperanza M Dianne [id number] Esperanza M Dianne 08/10/2023 1 [place] [address] Esperanza Sales Dianne [id number] Esperanza M Dianne 08/25/2023 2 [place] [facility] Esperanza Mónica Dianne [id number] Esperanza M Dianne 08/25/2023 1 [place] [address] 01 Esperanza M M Dianne [id number] Esperanza M Dianne 09/28/2023 2 [place] [facility] Esperanza M Dianne [id number] Esperanza M Dianne 09/28/2023 1 [place] [address] Esperanza Sales Dianne [id number] Esperanza M Dianne 01/08/2024 2 [place] [facility] Esperanza M Dianne [id number] Esperanza M Dianne 01/08/2024 1 [place] [address] Esperanza Sales Dianne [id number] Esperanza M Dianne Notes Date Note Type Note Provider Name and Address Organization Details Recorded Time 07/24/2023 text/html No change with prednisone or abx. Still has facial pressure and ear fullness L > R prior [id number] with chronic left maxillary sinusitis. Symptoms started [...] surgery. ELENITA MONTANO MD 100 [facility],[address], [address], [facility] - [facility] 07/24/2023 12:45:01 08/10/2023 text/html 62-year-old fema le presents status post left maxillary antrostomy with sigifredo bullosa resection on 08/08/[address] Montano. She is doing well postoperatively. Currently on amoxicillin. MIKE MONTOYA MD 100 [facility],[address], [address], [facility] 08/10/2023 17:13:02 08/25/2023 text/html Patient seen following endoscopic surgery she is August 07. She still has some left facial pressure, ear fullness and nasal discharge. No HL. Smell and taste ok. Been irrigating twice daily and using saline solution 3-4 times per day. Finished abx but got burning. No thrush. Holding CPAP ELENITA MONTANO MD 100 [facility],[address], [address], [facility] - [facility] 08/25/2023 14:22:37 09/28/2023 text/html Patient with chronic sinusitis status post left-sided surgery. She has a known rightward septal deviation and had mild sinus thickening on that side. We elected to proceed with left-sided surgery only. She notes significant improvement and just a little bit of congestion in the morning. ELENITA MONTANO MD 100 [facility],[place] [address], [place], [address], [place] - [facility] 09/28/2023 12:08:38 01/08/2024 text/html 63 year [...] relief. GARRY LINK MD 100 [facility],[place] [address], [place], [address], [facility] - [facility] 01/08/2024 21:13:08 OBGyn Episode No OBEpisode recorded.
--- OUTSIDE RECORDS SUMMARY | 2024-06-17 12:52 | XMS_ITS | Clinical Summary ---
Author Organization [facility], Address [address] [place] [address] [place] [address] Phone Care Team Providers Care Physician Liaison Name Role Phone Janak Greer MD Primary Care Provider [phone] Allergies No known active allergies Medications aspirin (ST JULI) 81 MG EC tablet Take 1 tablet by mouth 1 (one) time each day Active Multiple Vitamins-Wilcox als (CENTRUM SILVER PO) Take 1 tablet [...] MG tablet 9 Active Continuous Blood Gluc Helicopter Pilot Instructor (FREESTYLE KAPIL 14 DAY READER) device [...] Visit [facility] [place], [address] [place] [address] Kelechi Moran MD [address] [place] [address] Health Maintenance Due Date Last Done Comments [...] Creatinine, Ur 32.0 Not Estab. mg/dL [facility] Protein, Ur 68.3 Not Estab. mg/dL [facility] Urine Protein/Creati nine Ratio 2,134(H) 0 - 200 mg/g creat [facility] 06/10/2024 10:0 6 AM EDT 06/10/2024 Kelechi Moran MD LAB URINE ORDERABLES Final Result [facility] [address] [place] [address] * (ABNORMAL) CBC and Differential (06/10/2024 10:06 AM EDT) WBC 8.0 3.4 - 10.8 x10E3/uL [facility] RBC 3.73(L) 3.77 - 5.28 x10E6/uL [facility] Hemoglobin 11.2 11.1 - 15.9 g/dL [facility] Hematocrit 33.6(L) 34.0 - 46.6 % [facility] MCV 90 79 - 97 fL [facility] MCH 30.0 26.6 - 33.0 pg [facility] MCHC 33.3 31.5 - 35.7 g/dL [facility] RDW 12.7 11.7 - 15.4 % [facility] Platelets 313 150 - 450 x10E3/uL [facility] Neutrophils Relative 72 Not Estab. % [facility] Lymphocytes Relative 19 Not Estab. % [facility] Monocytes 5 Not Estab. % [facility] Eosinophils Relative 3 Not Estab. % [facility] Basophils Relative 1 Not Estab. % [facility] Neutrophils Absolute 5.7 1.4 - 7.0 x10E3/uL [facility] Lymphocytes Absolute 1.5 0.7 - 3.1 x10E3/uL [facility] Monocytes Absolute 0.4 0.1 - 0.9 x10E3/uL [facility] Eosinophils Absolute 0.3 0.0 - 0.4 x10E3/uL [facility] Basophils Absolute 0.1 0.0 - 0.2 x10E3/uL [facility] Immature Granulocytes 0 Not Estab. % [facility] Immature Grans (Absolute) 0.0 0.0 - 0.1 x10E3/uL [facility] 06/10/2024 10:0 6 AM EDT 06/10/2024 us Kelechi Moran MD LAB BLOOD ORDERABLES Final Result [facility] [address] [place] [address] * (ABNORMAL) Renal Function Panel (06/10/2024 10:06 AM EDT) Glucose 98 70 - 99 mg/dL [facility] BUN 45(H) 8 - 27 mg/dL [facility] Creatinine 1.50(H) 0.57 - 1.00 mg/dL [facility] eGFR CKD-EPI CR 2020 39(L) >59 mL/min/1.7 3 [facility] BUN/Creatinine Ratio 30(H) 12 - 28 [facility] Sodium 136 134 - 144 mmol/L [facility] Potassium 4.4 3.5 - 5.2 mmol/L [facility] Chloride 100 96 - 106 mmol/L [facility] Bicarbonate (CO2) 19(L) 20 - 29 mmol/L [facility] Calcium 9.5 8.7 - 10.3 mg/dL [facility] Albumin 4.2 3.9 - 4.9 g/dL [facility] Phosphorus 4.2 3.0 - 4.3 mg/dL [facility] 06/10/2024 10:0 6 AM EDT 06/10/2024 Kelechi Moran MD LAB BLOOD ORDERABLES Final Result [facility] [address] [place] [address] from Last 3 Months Insurance [facility] Medicaid [place] Care Teams Physician Liaison Relationship Specialty Start Date End Date Janak Greer MD [address] PCP - General 12/18/18
--- OUTSIDE RECORDS SUMMARY | 2024-06-17 12:52 | XMS_ITS | Clinical Summary ---
Author Organization [facility] Address [address] [place] [address] Care Team Providers Care Apn Name Role Phone Janak Greer MD Primary Care Provider [phone] Allergies No known active allergies Medications Medication [...] 0 05/13/2019 Act kay Continuous Blood Gluc Home Economics Expert (FreeStyle Joseph 14 Day [place]) PABLO 0 01/29/2019 Active Continuous Blood Gluc [...] Quadrivalent) 0.5 ML ROSE MARIE Flucelvax Quad 5937-5240 (PF) 60 mcg (15 mcg x 4)/0.5 [...] ambreen lite 0 Active Continuous Blood Gluc Home Economics Expert (FreeStyle Joseph 14 Day [place]) PABLO FreeStyle Joseph 14 Day [place] 0 Active Lancets (freestyle) lancets FreeStyle Joseph [...] age to complete this topic Care Teams Apn Relationship Specialty Start Date End Date Janak Greer MD [address] [place] [address] PCP - General Internal Medicine 12/27/18
--- OUTSIDE RECORDS SUMMARY | 2024-06-17 12:52 | XMS_ITS | Encounter Summary ---
Author Organization [facility] Address [address] [address] Phone Care Team Providers Care Wave Soldering Machine Operator Name Role Phone Janak Greer MD Primary Care Provider [phone] Reason for Visit * Reason Comments New Med Request Encounter Details Date Type Department Care Team (Late Contact Info) Description 04/12/2022 Refill [facility] [address] [place] [address] Kelechi Moran MD [address] [place] [address] [place] [address] Social History Tobacco Use Types [...] Visit [facility] [address] [place] [address] Kelechi Moran MD [address] [place] [address] [place] [address] documented as of this encounter Visit Diagnoses Not on filedocumented in this encounter Care Teams Wave Soldering Machine Operator Relationship Specialty Start Date End Date Janak Greer MD [address] PCP - General 12/18/18 documented as of this encounter
--- OUTSIDE RECORDS SUMMARY | 2024-06-17 12:52 | XMS_ITS | Encounter Summary ---
Author Organization [facility] Address [address] [address] Phone Care Team Providers Care Enamel Drier Name Role Phone Janak Greer MD Primary Care Provider [phone] Encounter Details Date Type Department Care Team (Late Contact Info) Description 02/26/2021 Documentation Only [facility] [address] [place] [address] Kelechi Moran MD [address] [place] [address] [place] [address] Social History Tobacco Use Types [...] [facility] [address] [place] [address] Kelechi Moran MD [address] [place] [address] [place] [address] documented as of this encounter Visit Diagnoses Not on filedocumented in this encounter Care Teams Enamel Drier Relationship Specialty Start Date End Date Janak Greer MD [address] PCP - General 12/18/18 documented as of this encounter
--- OUTSIDE RECORDS SUMMARY | 2024-06-17 12:52 | XMS_ITS | Clinical Summary ---
Author Organization [facility] Address [address] [place] [address] Care Team Providers Care Loader Malt House Name Role Phone Janak Greer MD Primary Care Provider [phone] Allergies No known active allergies Medications No [...] to complete this topic Insurance Care Teams Loader Malt House Relationship Specialty Start Date End Date Janak Greer MD [address] [place] [address] PCP - General Internal Medicine 08/09/22
--- OUTSIDE RECORDS SUMMARY | 2024-06-17 12:52 | XMS_ITS | Encounter Summary ---
Author Organization [facility] Address [address] [address] Phone Care Team Providers Care Display Carver Name Role Phone Janak Greer MD Primary Care Provider [phone] Encounter Details Date Type Department Care Team (Late Contact Info) Description 04/01/2021 Documentation Only [facility] [address] [place] [address] Kelechi Moran MD [address] [place] [address] [place] [address] Social History Tobacco Use Types [...] Visit [facility] [address] [place] [address] Kelechi Moran MD [address] [place] [address] [place] [address] documented as of this encounter Visit Diagnoses Not on filedocumented in this encounter Care Teams Display Carver Relationship Specialty Start Date End Date Janak Greer MD [address] PCP - General 12/18/18 documented as of this encounter
== END 2024-06-17 12:04 | disposition home or self-care (01) ==
LOC: HO.HBST 11:06
PROVIDERS: Visit Provider Counselor Mental Health
DX: F31.9 Bipolar disorder, unspecified (principal); F41.9 Anxiety disorder, unspecified; Z71.89 Other specified counseling
CPT/HCPCS: 90791

== ENCOUNTER → 2024-06-17 11:06 | Outpatient (BNVA) | payer MEDICARE, MEDICAID, SELFPAY | PROVIDERS: Visit Provider Counselor Mental Health ==

== ENCOUNTER 2024-07-01 10:07 | Outpatient (AMB) | payer MEDICARE, MEDICAID, SELFPAY ==
--- NOTE | 2024-07-01 10:05 | A.OFFWM_ITS ---
Intake Intake Visit Reasons: VIDEO BH Intake Part 2 Allergies No Known Allergies Allergy (Verified 06/12/24 11:02) [facility] Medical History (Updated 06/09/24 @ 15:33 by Gibran Palm MD) Insomnia Stress incontinence History of venous thromboembolism Insulin dependent type 2 diabetes mellitus Anxiety Bipolar 1 disorder Arthritis of right knee Fatty liver Asthma Hypothyroid DVT (deep venous thrombosis) Fibromyalgia HTN (hypertension) Chronic renal insufficiency Type 2 diabetes mellitus Bipolar disorder Depression Morbid obesity Chronic pulmonary embolism Sleep apnea GERD (gastroesophageal reflux disease) Elevated cholesterol Surgical History (Updated 05/27/24 @ 11:42 by Gibran Palm MD) History of right knee joint replacement History of esophagogastroduodenoscopy (EGD) H/O colonoscopy Hx of inguinal hernia repair Hx of sinus surgery Hx of shoulder surgery Hx of umbilical hernia repair Hx of arthroscopy of right knee History of bladder suspension procedure Hx of tonsillectomy H/O: hysterectomy History of ankle surgery Family History (Updated 05/16/24 @ 14:59 by LARISSA Dickson) Father Heart failure Diabetes HTN (hypertension) Maternal Aunt Diabetes Paternal Grandmother Diabetes Mother HTN (hypertension) Social History Household Members: Family Household Members Other:: takes care of parents Housing: House Are you a primary child care team lead to a significant other at home: No Do you presently have visiting nurse or other home services: No Patient Tobacco Use Status: Former Tobacco user Tobacco use type: Cigarette Years Smoked: 30 service: No Current occupational status: retired Behavioral Health Assessment Weight Management Therapy Therapy Notes Details The patient is a 63-year-old female returning for her second visit to complete the behavioral health assessment as part of the surgical weight loss program. She was referred to the program by her cousin, who previously underwent bariatric surgery. Additionally, both her cheese cutter and security support analyst have recommended weight loss to improve health outcomes and support better management of her medical conditions. She began the program on 05/27/2024 at 237 lbs. As of 06/30/2024, her weight is 225 lbs, reflecting a loss of 12 lbs. Her initial goal was to lose 10% of her body weight (approximately 24 lbs) before surgery, which she has already achieved. Her pre-surgery target weight of 233 lbs has also been met. Her long- term post-surgical weight goal is to be under 160 lbs. The patient has a history of Bipolar Disorder Type 1 and anxiety. She is currently engaged in therapy and medication management at [facility] in [place]. She has a past suicide attempt and has been hospitalized twice, with the most recent episode occurring six years ago due to abram. She reports being stable for over a year and denies any recent or current safety concerns. There is no history of substance use. She reports a history of possible stress or emotional eating, but her results from the Binge Eating Scale (BES) indicate low risk for binge eating. PHQ-9 scores show no current symptoms of depression. Her mental status exam is within normal limits, with no evidence of impaired functioning. At this time, the patient is cleared from a behavioral health standpoint. Presenting Concerns Referral Source WMP-Provider. Reason for referral Completion of behavioral health assessment as part of process for weight-loss surgery. Precipitating Event Obesity. Living Situation Current Living Situation Own At risk of losing current housing? No Satisfied with current living situation? Yes Comments PT lives in a multifamily home, she is in the 3rd floor, her parents in the second floor and her aunt in the first floor. Food/Weight/Diet Expectations of change PT started the program on 05/27/2024 at 237Lbs, her most recent weight as if 06/30/2024 was 225Lbs. The initial goal was to lose 10% of her weight before surgery, which is about 24 lbs. Ultimate weight goal: 233 lbs. before surgery (she achieved this already). Her goal is to be under 160 lbs. post-op. PT is implementing the following: Current meal plan: combination of shakes, bars, and 1 meal per day. Exercise plan: using a stationary bike 3x day, 7 days a week. Scale: Yes Communication with provider: Yes on Sundays. History/Relationship with food The patient reports using food as a form of emotional support. As a child, she was required to finish everything on her plate, which led her to associate fullness with a stuffed feeling. This early pattern contributed to overeating and gradual weight gain over time. Prior to starting the program, she often ate large quantities of food in short periods without experiencing physical hunger. Example of meals before starting the program: Breakfast: 7 am - 2 boiled eggs, 1-2 toast, coffee, and orange juice. Lunch: 1 pm - yogurt with/ fruit. (skipped 3-4 x week) Dinner: 5 pm - salad, meat, vegetables, starch. Snacks: occasionally M&M before dinner, 8 pm (Cheesecake, muffin, 5 cookies, ice cream) Beverages: Coffee (4 cups/day with 2% milk), tea: (hot or iced tea: 1 cup/d plain), soda: diet Coke, Iced tea: 1 cup with dinner. Juice: 4oz glass of orange juice in the morning. ETOH: none History/Relationship with weight PT reports she was overweight in childhood, in HS she was very active and was around 140- 160 lbs PT was under 200 lbs before getting , or over 30 years ago. In the last 10 years, the patient's Lowest weight was 225Lbs (current) and highest 300Lbs History/Relationship with dieting WW, Nutrisystem, self diets (30lbs in 1 year w/Mediterranean diet 2022), Mounjaro 12.5mg/wk: for 1 year, lost 30lbs. Binge Eating Do you frequently eat large amounts of food in short periods of time, not feeling physically hungry? No Do you feel out of control when you eat a large amount of food in a short period of time? No Do you eat large amounts of food rapidly and typically alone? No Night Eating Do you wake up at least once during the night to eat? No If you wake up in the night, do you find that it is necessary to eat something in order to fall back asleep? No Do you have little or no appetite in the morning and feel very hungry in the evening, often overeating between dinner and when you go to bed? No Social History Family history and relationship PT is . She has 2 adult children who are . No grandchildren. She has 2 older siblings. PT has a good relationship with her family in general. Parental/Familial anatomy professor obligations Her parents. Father is 92, and her mother is 88. PT has been a caregiver for other relatives. Developmental history and status None reported Currently WNL. Social support A cousin (Taryn, who had surgery), a close friend, her parents and aunt. Community support Her therapist. PCP, cheese cutter, and security support analyst. Adventist/Spirituality Mandaeism. Cultural/Ethnic information . Legal Involvement and History Current or historical involvement with the legal system? None reported Education Highest grade completed HS, some college. Preferred learning style Written and Visual Currently enrolled in educational program? No Interested in further educational program? 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 Employment Employment Status Retired (Legally disabled. ) Wants help to find employment? No Meaningful activities going to the [facility] a couple of times a year. Journaling, coloring. Financial Situation Describe current financial situation Occasional struggle and Often struggles with finance Financial assistance? Disability (SSD. ) Mental Health and Addiction Treatment Current/Past substance abuse? No Comments Alcohol: None Cigarettes/Tobacco: None Cannabis/Edibles: None Current/Past addictive behavior concerns? Yes Psychiatric history The patient has a history of Bipolar Disorder Type 1 and anxiety. She currently sees both a therapist and a prescriber at [facility] in [place]. The patient reports a past suicide attempt, which occurred years ago. She has been hospitalized twice, with the most recent hospitalization occurring six years ago due to a manic episode, characterized by insomnia, impulsivity, overspending, and irritability. The patient denies any safety concerns since the last hospitalization, reports being stable for over a year, and denies any recent safety concerns. Medical and Physical Health Summary Additional Medical History not covered in history Fibromyalgia. Sexual History concerns None reported. Physical exam in the last year? Yes (.) Pain Screening Current pain? No Pain in the last few months? Yes Comments Pain due to fibomyalgya, knee pain, ankle and hip pain. Medications Is the patient compliant with medications? Yes Does the patient have De Souza Guardian in place? Not applicable Does the patient use complimentary health approaches? Yes Trauma/Abuse History History of trauma? No Questionnaires PHQ-9 Over the last 2 weeks, how often have you been bothered by any of the following problems? 1. Little interest or pleasure in doing things: several days 2. Feeling down, depressed, or hopeless: not at all 3. Trouble falling or staying asleep, or sleeping too much: not at all 4. Feeling tired or having little energy: several days 5. Poor appetite or overeating: not at all 6. Feeling bad about yourself - or that you are a failure or have let yourself or your family down: several days 7. Trouble concentrating on things, such as reading the newspaper or watching television: not at all 8. Moving or speaking so slowly that other people could have noticed. Or the opposite - being so fidgety or restless that you have been moving around a lot more than usual: not at all 9. Thoughts that you would be better off or of hurting yourself in some way: not at all Total score: 3 Depression Screening Interpretation: Negative Depression Screening Done: Yes 28921 - PHQ-9 Billing: Yes Source: Developed by Drs. Hudson Montalvo, Barbara Qureshi, Tomasz Florence and colleagues, with an educational angelica from [employer]. Binge Eating Scale Group 1 A. I don't feel self-conscious about my wt. or body size when I'm with others. B. I feel concerned about how I look to others, but it normally does not make me fell disappointed with myself C. I do get self-conscious about my appearance and wt. which makes me feel disappointed in myself. D. I feel very self-conscious about my wt. and frequently I feel intense shame and disgust for myself. I try to avoid social contacts because of my self- consciousness. Response Group 1: C Group 2 A. I don't have any difficulty eating slowly in the proper manner. B. Although I seem to gobble down foods, I don't end up feeling stuffed because of eating to much. C. At times, I tend to eat quickly and then, I feel uncomfortably full afterwards. D. I have the habit of bolting down my food, without really chewing it. When this happens I usually feel uncomfortably stuffed because I've eaten to much. Response Group 2: B Group 3 A. I feel capable to control my eating urges when I want to. B. I feel like I have failed to control my eating more than the average person. C. I feel utterly helpless when it comes to feeling in control of my eating urges. D. Because I feel so helpless about controlling my eating I have become very desperate about trying to get control. Response Group 3: B Group 4 A. I don't have the habit of eating when I'm bored. B. I sometimes eat when I'm bored, but often I'm able to get busy and get my mind off food. C. I have a regular habit of eating when I'm bored, but occasionally, I can use some other activity to get my mind off eating. D. I have a strong habit of eating when I'm bored. Nothing seems to help me breath the habit. Response Group 4: B Group 5 A. I'm usually physically hungry when I eat something. B. Occasionally, I eat something on impulse even though I really am not hungry. C. I have the regular habit of eating foods, that I might not really enjoy, to satisfy a hungry feeling even though physically, I don't need the food. D. Although I'm not physically hungry, I get a hungry feeling in my mouth that only seems to be satisfied when I eat a food, like sandwich, that fills my mouth. Sometimes, when I eat the food to satisfy my mouth hunger, I then spit the food out so I won't gain weight. Response Group 5: B Group 6 A. I don't feel any guilt or self-hate after I overeat. B. After I overeat, occasionally I feel guilt or self-hate. C. Almost all the time I experience strong guilt or self-hate after I overeat. Response Group 6: B Group 7 A. I don't lose total control of my eating when dieting even after periods when I overeat. B. Sometimes when I eat a forbidden food on a diet, I feel like I blew it and eat even more. C. Frequently, I have the habit of saying to myself, I've blown it now, why not go all the way, when I overeat on a diet. When that happens I eat more. D. I have a regular habit of starting a strict diets for myself but I break the diets by going on an eating binge. My life seems to be either a feast or famine. Response Group 7: B Group 8 A. I rarely eat so much food that I feel uncomfortably stuffed afterwards. B. Usually about once a month, I each such a quantity of food, I end up feeling very stuffed. C. I have regular periods during the month when I eat large amounts of food, either at mealtime or at snacks. D. I eat so much food that I regularly feel quite uncomfortable after eating and sometimes a bit nauseous. Response Group 8: A Group 9 A. My level of calorie intake does not go up very high or go down very low on a regular basis. B. Sometimes after I overeat, I will try to reduce my caloric intake to almost nothing to compensate for the excess calories I've eaten. C. I have a regular habit of overeating during the night. It seems that my routine is not to be hungry in the morning but overeat in the evening. D. In my adult years, I have had week-long periods where I practically starve myself. This follows periods when I overeat. It seems I live a life of either feast or famine. Response Group 9: C Group 10 A. I usually am able to stop eating when I want to. I know when enough is enough. B. Every so often, I experience a compulsion to eat which I can't seem to control. C. Frequently, I experience strong urges to eat which I seem unable to control, but at other times I can control my eating urges. D. I feel incapable of controlling urges to eat. I have a fear of not being able to stop eating voluntarily. Response Group 10: C Group 11 A. I don't have any problem stopping eating when I feel full. B. I usually can stop eating when I feel full but occasionally overeat leaving me feeling uncomfortably stuffed. C. I have a problem stopping eating once I start and usually I feel uncomfortably stuffed after I eat a meal. D. Because I have a problem not being able to stop eating when I want, I sometimes have to induce vomiting to relieve my stuffed feeling. Response Group 11: B Group 12 A. I seem to eat just as much when I'm with others, Family social gatherings as when I'm by myself. B. Sometimes, when I'm with other persons, I don't eat as much as I want to eat because I'm self-conscious about my eating. C. Frequently, I eat only a small amount of food when others are present, because I'm very embarrassed about my eating. D. I feel so ashamed about overeating that I pick times to overeat when I know no one will see me. I feel like a closet eater. Response Group 12: A Group 13 A. I eat three meals a day with only an occasional between meal snack. B. I eat 3 meals a day, but I also normally snack between meals. C. When I am snacking heavily, I get in the habit of skipping regular meals. D. There are regular periods when I seem to be continually eating, with no planned meals. Response Group 13: B Group 14 A. I don't think much about trying to control unwanted eating urges. B. At least some of the time, I feel my thoughts are pre-occupied with trying to control my eating urges. C. I feel that frequently I spend much time thinking about how much I ate or about trying not to eat anymore. D. It seems to me that most of my waking hours are pre-occupied by thoughts about eating or not eating. I feel like I'm constantly struggling not to eat. Response Group 14: B Group 15 A. I don't think about food a great deal. B. I have strong craving for food but they last only for brief periods of time. C. I have days when I can't seem to think about anything else but food. D. Most of my days seem to be pre-occupied with thoughts about food. I feel like I live to eat. Response Group 15: B Group 16 A. I usually know whether or not I'm physically hungry. I take the right portion of food to satisfy me. B. Occasionally, I feel uncertain about knowing whether or not I'm physically hungry. A these times it's hard to know how much food I should take to satisfy me. C. Even though I might know how many calories I should eat, I don't have any idea what is a normal amount of food for me. Response Group 16: B Binge Eating Score: 17 Score less than 17 Minimal Risk Score between 18-26 Moderate Risk Score between 27-46 High Risk Assessment & Plan Assessment & Plan (1) Bipolar 1 disorder: Code(s): F31.9 - Bipolar disorder, unspecified (2) Anxiety: Code(s): F41.9 - Anxiety disorder, unspecified (3) Pre-bariatric surgery psychological evaluation: Code(s): Z71.89 - Other specified counseling Plan The patient has been cleared from a behavioral health standpoint. She has demonstrated significant progress in improving her eating habits and has shown strong commitment to the program's expectations. Her mental health appears stable, and she is actively engaged in ongoing care to maintain that stability. She is scheduled to return for a behavioral health screening 2?4 weeks postoperatively. Next qi: 2-4 wks PO. Telehealth Telehealth Telehealth Platform: [employer] Location of provider rendering services: other Location of patient: address on file Patient Identification confirmed using: Name, : Yes Telehealth method: video Patient verbally consented to treatment: Yes Patient verbally consented to billing insurance company: Yes Patient informed of any privacy concerns related to visit: Yes Minutes spent on Phone/Video with Pt.: 60 Coding Level of Care Code Established Pt Tele Psytx >53 mins (65610) Patient Type Established Diagnoses Bipolar 1 disorder F31.9 Anxiety F41.9 Pre-bariatric surgery psychological evaluation Z71.89 Additional Codes PHQ-9 - 27232 - PHQ-9 Billing: Yes ([id number]) Time Spent (min) 60
--- OUTSIDE RECORDS SUMMARY | 2024-07-01 10:34 | XMS_ITS | Patient Health Record ---
Author Organization [facility] Address [address] [place] [id number] Care Team Providers Care Technical Account Manager Name Role Phone Caprice Staples Unavailable [phone] Reason For Referral No Information Medications Medication SIG (Take, Route, Frequency, Duration) Notes Start Date End Date Status Topiramate 50MG 1 ORAL twice daily for [facility] 04/11/19 14 Active metFORMIN HCl 500MG 1 ORAL four times da negro for [facility] 04/11/2013 Active Luz 0.05MG 1 patch to skin Transdermal TWICE WEEKLY [facility] 04/04/2013 Active Vitamin D3 5,000 IU 1 ORAL daily for [facility] 04/11/2013 Active PriLOSEC OTC 20 MG 1 tablet Orally Once a day Active Atorvastatin Calcium 80 MG 1 tablet Oral ly Once a day Active Aspirin EC 81MG 1 ORAL daily for [facility] 04/11/2013 Active Abilify 2MG 1 ORAL daily for [facility] 04/11/2013 Active Restasis 0.05 % 1 into affected eye Ophthalmic Twice a day Active Luz 0.05 MG/24HR 1 patch to skin Transdermal TWICE WEEKLY for 90 days 07/22/2014 Active LORazepam 1MG 1 ORAL three times d aily for [facility] 04/11/2013 Active glipiZIDE 5MG ORAL three times greg ly for [facility] 04/11/2013 Active Cymbalta 60MG 1 ORAL daily for [facility] 04/11/2013 Active Problems Problem Type SNOMED Code ICD Code Onset Dates Problem Status W/U Status Risk Notes Problem Type II diabetes mellitus uncontrolled (541610218) Diabetes mellitus without mention of complication, type II or unspecified type, uncontrolled (250.02) Active confirmed Diag Problem Hyperlipidemia (11334583) Other and unspecified hyperlipidemia (272.4) Active confirmed Major Problem Menopausal symptom (84947586) Symptomatic menopausal or female climacteric states (627.2) Active confirmed Diag Problem Muscle pain (37844595) Unspecified myalgia and myositis (729.1) Active confirmed Major Problem Gynecological examination normal (270733712371249) Routine gynecological examination (V72.31) Active confirmed Major Plan Of Treatment Pending Test Test Name Order Date MAMMOGRAM, SCREENING 07/22/2014 Insurance Providers Payer Name Payer Address Payer Phone Subscriber Number Group Number Insured Name Patient Relationship to Insured Coverage Start Date Coverage End Date [employer] MEDICARE [employer]AGE [facility] [address] [place] [address] [id number] CHEVY WOLF Self - patient is the [...]
--- OUTSIDE RECORDS SUMMARY | 2024-07-01 10:34 | XMS_ITS | Encounter Summary ---
Author Organization [facility] Address [address] [place] [address] Care Team Providers Care Brine Tank Separator Operator Name Role Phone Janak Greer MD Primary Care Provider [phone] Reason for Visit * Reason Comments Med Change Request Encounter Details Date Type Department Care Team ([facility] st Contact Info) Description 10/04/2022 Refill [facility] [address] [address] Leslie Howell PA-C [address] [place] [id number] Visit for wound check Social History Tobacco [...] check documented in this encounter Care Teams Brine Tank Separator Operator Relationship Specialty Start Date End Date Janak Greer MD [address] [place] [address] PCP - General Internal Medicine 08/09/22 documented as of this encounter
--- OUTSIDE RECORDS SUMMARY | 2024-07-01 10:34 | XMS_ITS | Encounter Summary ---
Author Organization [facility] Address [address] [place] [address] Care Team Providers Care Retail Merchandiser Technician Name Role Phone Janak Greer MD Primary Care Provider [phone] Encounter Details Date Type Department Care Team (Late st Contact Info) Description 06/06/2023 Scanned Document [address] [place] [phone] Provider, Generic Social History Tobacco Use Types [...] on filedocumented in this encounter Care Teams Retail Merchandiser Technician Relationship Specialty Start Date End Date Janak Greer MD [address] [place] [address] PCP - General Internal Medicine 08/09/22 documented as of this encounter
--- OUTSIDE RECORDS SUMMARY | 2024-07-01 10:34 | XMS_ITS | Encounter Summary ---
Author Organization [facility] Address [address] [place] [address] Care Team Providers Care Market Development Specialist Name Role Phone Janak Greer MD Primary Care Provider [phone] Encounter Details Date Type Department Care Team (Late st Contact Info) Description 09/30/2022 Refill [facility] [address] [phone] Rommel Whyte MD [address] [place] [address] [place] [id number] Chronic pain of left ankle Social History [...] ankle documented in this encounter Care Teams Market Development Specialist Relationship Specialty Start Date End Date Janak Greer MD [address] [place] [address] PCP - General Internal Medicine 08/09/22 documented as of this encounter
--- OUTSIDE RECORDS SUMMARY | 2024-07-01 10:34 | XMS_ITS | Encounter Summary ---
Author Organization [facility] Address [address] [place] [address] Care Team Providers Care Window Glass Installer Name Role Phone Janak Greer MD Primary Care Provider [phone] Encounter Details Date Type Department Care Team (Late st Contact Info) Description 09/27/2022 Scanned Document [facility] [address] [phone] Rommel Whyte MD [address] [place] [phone] Social History Tobacco Use Types Packs/Day Years [...] on filedocumented in this encounter Care Teams Window Glass Installer Relationship Specialty Start Date End Date Janak Greer MD [address] [place] [address] PCP - General Internal Medicine 08/09/22 documented as of this encounter
--- OUTSIDE RECORDS SUMMARY | 2024-07-01 10:34 | XMS_ITS | Clinical Summary ---
Author Organization [facility] Address [address] [place] [address] Phone Care Team Providers Care Agribusiness Professor Name Role Phone Janak Greer MD Primary Care Provider [phone] Allergies No known active allergies Medications apixaban [...] 02/25/2020 DX:Depression Diabetes mellitus type 2, uncomplicated ([facility] V24, [facility] V28) 02/25/2020 DX:Diabetes mellitus type 2, uncomplicated (HCC) Bipolar disorder ([facility] V2 4, [facility] V28) 02/25/2020 DX:Bipolar disorder (HCC) SHAWN (obstructive sleep apnea) 02/25/2020 DX :SHAWN (obstructive sleep apnea) Severe obesity with body mas s index (BMI) of 35.0 to 39.9 with comorbidity (CMS/HCC V24, [facility] V28) 02/25/2020 DX:Severe obesity with body mass index (BMI) of 35.0 to 39.9 with comorbidity ([facility]) History of pulmonary embolus (PE) 02/25/2020 DX:History of pulmonary embolus (PE) Dyspnea 02/25/2020 DX:Dyspnea Blood clotting tendency ([facility] V24) DX:Blood clotting tendency (HCC) Diabetes mellitus ([facility] V 24, [facility] V28) DX:Diabetes mellitus (HCC) High blood pressure [...] Maintenance Results * COLONOSCOPY Anesthesia - MAC; [facility] ENDOSCOPY (03/04/2024 8:56 AM EST) [...] previously scheduled. Narrative 03/04/2024 8:56 AM EST [facility] Patient Name: Esperanza Dean Procedure Date: [...] Procedure Code(s): ? --- Professional --- ? 74431, Colonoscopy, flexible; diagnostic, including ? collection of specimen(s) by brushing or washing, when ? performed (separate procedure) Diagnosis Code(s): ? --- Professional --- ? Z12.11, Encounter for screening for malignant neoplasm ? of colon CPT copyright 2020 [employer]. All rights reserved. The codes documented in this report are preliminary and upon sintering plant supervisor review may be revised to meet current compliance requirements. Yovanny Harvey MD 03/04/2024 8:56:08 AM This report has been signed electronically.Yovanny Harvey MD Number of Addenda: 0 Note Initiated On: 03/04/2024 8:33 AM Scope In: Scope Out: ? Endoscopy Department at [facility] - [address] [place] [address], ? [place] [address] Procedure Note Yovanny Harvey MD - 03/04/2024 [facility] Patient Name: Esperanza Dean Procedure Date: [...] retroflexion views. Procedure Code(s): --- Professional --- 29245, Colonoscopy, flexible; diagnostic, including collection of specimen(s) by brushing or washing,when performed (separate procedure) Diagnosis Code(s): --- Professional --- Z12.11, Encounter for screening for malignantneoplasm of colon CPT copyright 2020 [employer]. All rights reserved. The codes documented in this report are preliminary and upon sintering plant supervisor reviewmay be revised to meet current compliance requirements. Yovanny Harvey MD 03/04/2024 8:56:08 AM This report has been signed electronically.Yovanny Harvey MD Number of Addenda: 0 Note Initiated On: 03/04/2024 8:33 AM Scope In: Scope Out: Endoscopy Department at [facility] - [address] [place] [id number] IMPRESSION: - Diverticulosis in the sigmoid colon. [...] MEDICARE ADVANTAGE MEDICAID - [place] Care Teams Agribusiness Professor Relationship Specialty Start Date End Date Janak Greer MD PCP - General Internal Medicine 05/26/08
--- OUTSIDE RECORDS SUMMARY | 2024-07-01 10:34 | XMS_ITS | Encounter Summary ---
Author Organization [facility] Address [address] [place] [address] Care Team Providers Care Line And Frame Poler Name Role Phone Janak Greer MD Primary Care Provider [phone] Encounter Details Date Type Department Care Team (Late st Contact Info) Description 10/07/2022 Telephone [facility] [address] [place] [phone] Rommel Whyte MD [address] [place] [phone] Social History Tobacco Use Types Packs/Day Years [...] on filedocumented in this encounter Care Teams Line And Frame Poler Relationship Specialty Start Date End Date Janak Greer MD [address] [place] [address] PCP - General Internal Medicine 08/09/22 documented as of this encounter
--- OUTSIDE RECORDS SUMMARY | 2024-07-01 10:35 | XMS_ITS | Encounter Summary ---
Author Organization [facility] Address [address] [address] Phone Care Team Providers Care Stationary Engineer Name Role Phone Janak rGeer MD Primary Care Provider Encounter Details Date Type Department Care Team (Late Contact Info) Description 04/01/2021 Documentation Only [facility] [address] [place] [address] Kelechi Moran MD [address] [place] [address] [place] [address] Social History Tobacco Use Types [...] [facility] [address] [place] [address] Kelechi Moran MD [address] [place] [address] [place] [address] documented as of this encounter Visit Diagnoses Not on filedocumented in this encounter Care Teams Stationary Engineer Relationship Specialty Start Date End Date Janak Greer MD [address] PCP - General 12/18/18 documented as of this encounter
--- OUTSIDE RECORDS SUMMARY | 2024-07-01 10:35 | XMS_ITS | Clinical Summary ---
Author Organization [facility] Address [address] [place] [address] Care Team Providers Care Selvage Machine Operator Name Role Phone Janak Greer MD Primary Care Provider [phone] Allergies No known active allergies Medications Medication [...] 0 05/13/2019 Act kay Continuous Blood Gluc Hardware Supplies Sales Representative (FreeStyle Joseph 14 Day [place]) PABLO 0 01/29/2019 Active Continuous Blood Gluc [...] Quadrivalent) 0.5 ML ROSE MARIE Flucelvax Quad [id number] (PF) 60 mcg (15 mcg x 4)/0.5 [...] ambreen lite 0 Active Continuous Blood Gluc Hardware Supplies Sales Representative (FreeStyle Joseph 14 Day [place]) PABLO FreeStyle Joseph 14 Day [place] 0 Active Lancets (freestyle) lancets FreeStyle Joseph [...] age to complete this topic Care Teams Selvage Machine Operator Relationship Specialty Start Date End Date Janak Greer MD [address] [place] [address] PCP - General Internal Medicine 12/27/18
--- OUTSIDE RECORDS SUMMARY | 2024-07-01 10:35 | XMS_ITS | Encounter Summary ---
Author Organization [facility] Address [address] [address] Phone Care Team Providers Care Emery Wheel Worker Name Role Phone Janak Greer MD Primary Care Provider [phone] Reason for Visit * Reason Comments New Med Request Encounter Details Date Type Department Care Team (Late Contact Info) Description 04/12/2022 Refill [facility] [address] [place] [address] Kelechi Moran MD [address] [place] [address] [place] [address] Social History Tobacco Use Types [...] [facility] [address] [place] [address] Kelechi Moran MD [address] [place] [address] [place] [address] documented as of this encounter Visit Diagnoses Not on filedocumented in this encounter Care Teams Emery Wheel Worker Relationship Specialty Start Date End Date Janak Greer MD [address] PCP - General 12/18/18 documented as of this encounter
--- OUTSIDE RECORDS SUMMARY | 2024-07-01 10:35 | XMS_ITS | Data Portability ---
Author Organization [place] - [facility], Allergy Address [address] [address] Care Team Providers Care Almond Blancher Hand Name Role Phone LELAANUSHA Primary Care Provider [phone] Assessment Encounter Date Assessment Date Assessment LastModified [...] in 1-2 weeks as scheduled for reevaluation. [email or web address] Not available 08/10/2023 16:45:14 09/28/2023 09/28/2023 Patient [...] sinuses, w/o contrast 2023 [facility], [address] [place], [address], 4 14:09:46 Medication Orders doxycyclin e hyclate 100 mg capsule 2023 [id number], [phone] [place], [address], 4 11:38:28 fluticason e propionate 50 mcg/actuat ion nasal spray,susp ension 2023 024 [facility]/Pharmacy #[id number], [phone] [place], [address], 4 12:08:06 Patient TargetsNo targets recorded. Patient [...] observ ation record ed. [email or web address] Ents [address], [address], 07/24/2023 12:41:01 07/26/19 24 audio gram No observ ation record ed. BARCODE Not Available 2023 12:46:02 08/08/19 24 07/24/2023 CT, sinus es, w/o contr ast No observ ation record ed. [email or web address] [address], [address], 08/08/2023 22:58:50 Result Notes None recorded. Problems Name Problem SNOMED Code Status Onset Date Resolution Date Notes Provider Name and Address Organization Details Recorded Time Benign paroxysma l positiona l vertigo 074907371 Active 2020 Benign paroxysma l vertigo, unspecifi ed ear; Note: Date Diagnosed : 04/14/2020 10:02 AM (H81.10) Not Available [facility] 4 02:26:19 Otorrhagi a of right ear [id number] 98695 Active 2022 Otorrhagi a, right ear; Note: Date Diagnosed : 06/14/2022 2:51 PM (H92.21) Not Available [facility] 4 02:26:40 Disturban ce of salivary secretion 02945555 Active 2021 Xerostomi a; Note: Date Diagnosed : 09/30/2021 11:57 AM (K11.7) Not Available [facility] 4 02:26:26 Bilateral temporoma ndibular joint pain 45035771579 774788 Active 2022 Arthralgi a of bilateral temporoma ndibular joint; Note: Date Diagnosed : 05/10/2022 2:35 PM (M26.623) Arthral justin of bilateral temporoma ndibular joint; Note: Date Diagnosed : 04/14/2020 10:02 AM (M26.623) ; Start Date : Not Available [facility] 4 02:26:33 Gastroeso phageal reflux disease without esophagit is 041745985 Active 2021 Gastro-es ophageal reflux disease without esophagit is; Note: Date Diagnosed : 04/15/2021 10:11 AM (K21.9) Not Available [facility] 4 02:26:18 Sensorine ural hearing loss of bilateral ears 242633212 Active 2020 Sensorine ural hearing loss, bilateral ; Note: Date Diagnosed : 04/14/2020 10:03 AM (H90.3) Not Available [facility] 4 02:26:31 Allergic rhinitis caused by pollen 83481363 Active 2021 Allergic rhinitis due to pollen; Note: Date Diagnosed : 09/30/2021 11:57 AM (J30.1) Not Available [facility] 4 02:26:46 Bleeding from nose 376125978 Active 2022 Epistaxis ; Note: Date Diagnosed : 05/10/2022 2:35 PM (R04.0) Not Available [facility] 4 02:26:44 Chronic sinusitis 28233297 Active 2023 ELENITA KNAG MD [address] [place] [address], [place], [address] , [facility] - [facility] 4 21:08:07 Deviated nasal septum 894360971 Active 2023 ELENITA KANG MD 100 [facility],[address], [place], [address] , [place] - [facility] 4 21:08:13 Abnormal auditory perceptio n 94499264 Active 2023 ELENITA KANG MD 100 [facility],[place] [address], [place], [address] , [place] - [facility] 4 12:02:38 Chronic left maxillary sinusitis 69218630289 439924 Active 2023 ELENITA KANG MD 100 [facility],[place] [address], [place], [address] , [place] - [facility] 4 14:04:57 Obstructi ve sleep apnea syndrome 52657900 Active 2023 ELENITA KANG MD 100 [facility],[place] [address], [place], [address] , [place] - [facility] 4 14:22:09 Chronic maxillary sinusitis 15978754 Active 2023 Chronic maxillary sinusitis ; Note: Date Diagnosed : 06/12/2023 11:15 AM (J32.0) Not Available [facility] 4 02:26:21 Acute maxillary sinusitis 58645201 Active 2023 Acute maxillary sinusitis , unspecifi ed; Note: Date Diagnosed : 04/25/2023 11:27 AM (J01.00) Not Available [facility] 4 02:26:24 Problem Notes None recorded. Procedures Surgical History Date Name Laterality Status Provider Name and Address Organization Details Recorded Time 01/08/20 24 NasalEndoscopy_DP completed MARVIN CHEUNG PA-C 100 [facility],[place] [address], [place], [address], [facility] 01/08/2024 12:45:15 09/28/19 24 JMSNasal/Sinus Endoscopy-PRIOR surgical cavities completed ELENITA MONTANO MD 100 [facility],[place] [address], [place], [address], [place] - [facility] 09/28/2023 12:07:20 08/25/19 24 JMSNasal/Sinus Endoscopy-DEBRIDE MENT completed ELENITA MONTANO MD [address], [address], [facility] - [facility] [place] 08/25/2023 14:20:40 08/10/19 24 JMSNasal/Sinus Endoscopy-DEBRIDE MENT completed RAMYA BHATTI PA-C [address], [address], [facility] - [facility] [place] 08/10/2023 16:43:40 08/08/19 24 ENDOSCOPY, NASAL/SINUS W/ PARTIAL ETHMOIDECTOMY (SURG) completed Nacho Aldana [place] - [facility] 08/11/2023 13:52:45 07/24/19 24 JMSNasal/Sinus Endoscopy completed ELENITA MONTANO MD [address] [place] [address], [address], [facility] - [facility] 07/24/2023 12:01:33 07/24/19 24 SRT & Tymps - [address] & [address] completed Leah Donaldson [place] - [facility] 07/24/2023 12:28:03 Imaging Results Imaging Date Name Status LastModified by Organiz ation Details LastModified Time 07/24/2023 CT, sinuses, w/o contrast completed [facility] [address], [address], 07/24/2023 12:41:01 07/26/2023 audiogram completed BARCODE Information no t available 07/26/2023 12:46:02 07/24/2023 CT, sinuses, w/o contrast completed [facility] [address], [address], 08/08/2023 22:58:50 Procedure Notes None recorded. Medical [...] mg tablet 09/30 completed Medicati on ID: [id number] B rand Name: furosemi de Send Method: E-Prescr ibed Sub s Allowed: subs OK Medic ationGen ericName : furosemi de Not Available Not Available Not Available Miralax 17 gram/dose oral powder 09/30 completed Medicati on ID: [id number] B rand Name: Miralax Send Method: E-Prescr [...] pack Take 06/11 completed Medicati on ID: [id number] P rescribe d By Name: Joleen Cruz MD Brand Name: Medrol (Jeff) Se nd Method: E-Prescr ibed Sub s Allowed: subs OK Speci al Instruct ion: take as instruct ed Medic ationGen ericName : Medrol (Jeff) Not Available Not Available Not Available prednison e 20 mg tablet by mouth 2023 active Medicati on ID: [id number] B rand Name: predniso ne Send Method: [...] tended release 09/30 completed Medicati on ID: [id number] B rand Name: Tylenol Arthriti s Pain [...] mg tablet 09/30 completed Medicati on ID: 438483 B rand Name: oxcarbaz epine Se nd Method: E-Prescr ibed Sub s Allowed: subs OK Medic ationGen ericName : oxcarbaz epine Not Available Not Available Not Available acetamino phen 300 mg-codein e 30 mg tablet active Medicati on ID: 032030 B rand Name: acetamin ophen-co deine Se [...] mcg tablet 09/30 completed Medicati on ID: 179408 B rand Name: levothyr oxine Se nd Method: E-Prescr ibed Sub s Allowed: subs OK Medic ationGen ericName : levothyr oxine Not Available Not Available Not Available hydrocort isone 2.5 % topical cream with perineal applicato r 06/11 completed Medicati on ID: 508657 B rand Name: hydrocor tisone S end [...] 100 mg tablet active Medicati on ID: 985810 B rand Name: trazodon e Send Method: E-Prescr ibed Sub s Allowed: subs OK Medic ationGen ericName : trazodon e Medica tion ID: [id number] B rand Name: trazodon e Send Method: E-Prescr ibed Sub s Allowed: subs OK Medic ationGen ericName : trazodon e Not Available Not Available Not Available benzonata te 100 mg capsule TAKE 1 CAPSULE BY MOUTH THREE TIMES A DAY FOR 3 DAYS active Not Available Not Available No t Available levothyro xine 50 mcg tablet active Medicati on ID: 140306 B rand Name: levothyr oxine Se nd Method: E-Prescr ibed Sub s Allowed: subs OK Medic ationGen ericName : levothyr oxine Not Available Not Available Not Available cephalexi n 500 mg capsule TAKE 1 CAPSULE BY MOUTH FOUR TIMES A DAY active Not Available Not Available No t Available tacrolimu s 0.1 % topical ointment 06/11 completed Medicati on ID: 143992 B rand Name: tacrolim us Send Method: [...] mg tablet 06/11 completed Medicati on ID: 502561 B rand Name: hydroxyz ine HCl Send [...] nasal spray 09/30 completed Medicati on ID: 540799 B rand Name: azelasti ne Send Method: [...] unit) tablet 09/30 completed Medicati on ID: [id number] B rand Name: Vitamin D3 Send Method: E-Prescr ibed Sub s Allowed: subs OK Medic [facility] ericName : Vitamin D3 Not Available Not [...] as directed 2022 active Medicati on ID: [id number] D uration Value: 14 Brand Name: Ciprodex Send Method: E-Prescr ibed Sub s Allowed: subs OK [facility] C[facility]dex Not Available Not Available Not Available escitalop brittany 5 mg tablet TAKE 1 TABLET BY MOUTH ONCE DAILY. TAKE TOGETHER WITH 20 MG FOR TOTAL OF 25 MG PER DAY active Not Available Not Available No t Available Cinnamon 500 mg capsule 09/30 completed Medicati on ID: [id number] B rand Name: Cinnamon Send Method: E-Prescr ibed Sub s Allowed: subs OK [facility] : Cinnamon Not Available Not Available [...] mcg tablet 09/30 completed Medicati on ID: [id number] B rand Name: Centrum Silver Women Se [...] ous pen injector active Medicati on ID: 220333 B rand Name: Mounjaro Send Method: E-Prescr [...] Updated DateTime 08/10/2023 162.56 cm 43.9 kg/m2 844108.65 g Deborah Godfrey [place] - [facility] 08/10/2023 15:56:40 Date Recorded Body height Provider Name an d Address Organization Details Last Updated DateTime 08/25/2023 162.56 cm Jacob Bishop [place] - [facility] 08/25/2023 14:03:50 Date Recorded Body height Body mass index (BMI) Body weight Provider Name and Address Organization Details Last Updated DateTime 09/28/2023 162.56 cm 43.4 kg/m2 616995.87 g Jacob Bishop [place] - [facility] 09/28/2023 11:59:23 Date Recorded Body height Body mass index (BMI) Body weight Provider Name and Address Organization Details Last Updated DateTime 07/24/2023 162.56 cm 43.9 kg/m2 483848.65 g Jacob Bishop [place] - [facility] 07/24/2023 11:37:39 Social History None recorded. [...] Note [id number] ELENITA KANG MD [facility] [place] [address] [place] [address] 07/24/2023 10:58:36 07/24/2023 13:19:59 Chronic sinusitis 21033263 J32.9 J32.8 Because of increased symptoms on [...] handout was given Deviated nasal septum 12 9807835 J34.2 Abnormal a uditory perception 44435270 H93.293 Tymp and SRT reviewedA speech awareness threshold test, tympanomet ry, and distortion product otoacousti c emission test were performed. Results are as follows: Speech Awareness/ Gore Stitcher Test: Right Ear:{{with in normal limits 0 [...] RAMYA BHATTI PA-C [facility] [address] [place] [address] 08/10/2023 15:42:46 08/10/2023 16:16:37 Chronic sinusitis 05015195 J32.8 Postoperative visit 1836 29468 Z48.89 [id number] ELENITA KANG MD [facility] [address] [place] [address] 08/25/2023 13:59:35 08/25/2023 14:34:07 Chronic left maxillary sinusitis 3074907384 6916169 J32.0 No residual infection. Debridemen t performed. Suggest gentle irrigation to avoid ear symptoms. Burning mouth has improved. She can take some probiotics . Follow-up 4 weeks. Abnormal a uditory perception 44014571 H93.293 No fluid Obstructiv e sleep apnea syndrome 45431897 G47.33 Resume CPAP [id number] ELENITA KANG MD [facility] [address] [place] [address] 09/28/2023 11:30:17 09/28/2023 12:14:30 Chronic left maxillary sinusitis 2246343443 3464432 J32.0 No residual infection. Debridemen t performed. Suggest gentle irrigation to avoid ear symptoms. Burning mouth has improved. She can take some probiotics . Follow-up 4 weeks. Deviated nasal septum 12 2247182 J34.2 [id number] MARVIN CHEUNG PA-C [facility] [address] [place] [address] 01/08/2024 10:59:57 01/08/2024 11:42:28 Deviated nasal septum 386394915 J34.2 right Chronic le ft maxillary sinusitis 0439207721 6011181 J32.0 Health Concerns Section Related Observation LastModified by Organization Detai ls LastModified Time None Recorded Concern Status LastModified by Organization Details LastModified Time None Recorded Advance Directives Directive None Recorded Payers Insurance Date Sequence Insurance Name Policy Number Policy Azul Covered Member ID Azul Member ID Guarantor Name 05/07/2024 2 [place] [facility] Esperanza Sales Dianne [id number] Esperanza Dean 04/16/2024 1 [employer] [facility] [employer] [facility] [id number] Esperanza Mónica Mónica Dean [id number] Esperanza Dean Notes Date Note Type Note Provider Name and Address Organization Details Recorded Time 07/24/2023 text/html No change with prednisone or abx. Still has facial pressure and ear fullness L > R prior [id number] with chronic left maxillary sinusitis. Symptoms started [...] limited endoscopic sinus surgery. ELENITA MONTANO MD [address] [place] [address], [place], [address], [facility] - [facility] 07/24/2023 12:45:01 08/10/2023 text/html 62-year-old fema le presents status post left maxillary antrostomy with sigifredo bullosa resection on 08/08/[address] Montano. She is doing well postoperatively. Currently on amoxicillin. MIKE MONTOYA MD 100 [facility],[address], [address], [facility] 08/10/2023 17:13:02 08/25/2023 text/html Patient seen following endoscopic surgery she is August 07. She still has some left facial pressure, ear fullness and nasal discharge. No HL. Smell and taste ok. Been irrigating twice daily and using saline solution 3-4 times per day. Finished abx but got burning. No thrush. Holding CPAP ELENITA MONTANO MD 100 [facility],[place] [address], [place], [address], [facility] - [facility] 08/25/2023 14:22:37 09/28/2023 text/html Patient with chronic sinusitis status post left-sided surgery. She has a known rightward septal deviation and had mild sinus thickening on that side. We elected to proceed with left-sided surgery only. She notes significant improvement and just a little bit of congestion in the morning. ELENITA MONTANO MD 100 [facility], [place], [address], [facility] 09/28/2023 12:08:38 01/08/2024 text/html 63 year old prince reynoso presents following left maxillary FESS on [...] offer some relief. GARRY LINK MD [address] [facility],[place] [address], [place], [address], [facility] 01/08/2024 21:13:08 OBGyn Episode No OBEpisode recorded.
--- OUTSIDE RECORDS SUMMARY | 2024-07-01 10:35 | XMS_ITS | Clinical Summary ---
Author Organization [facility], Address [address] [place] [address] [place] [address] Phone Care Team Providers Care Supervisor Front Name Role Phone Janak Greer MD Primary Care Provider [phone] Allergies No known active allergies Medications aspirin (ST JULI) 81 MG EC tablet Take 1 tablet by mouth 1 (one) time each day Active Multiple Vitamins-G[place] als (CENTRUM SILVER PO) Take 1 tablet [...] MG tablet 9 Active Continuous Blood Gluc Deckhand (FREESTYLE KAPIL 14 DAY READER) device 9 [...] Visit [facility] [place], [address] [place] [address] Kelechi Moran MD [address] [place] [address] Health Maintenance Due Date Last Done Comments [...] Creatinine, Ur 32.0 Not Estab. mg/dL [facility] Protein, Ur 68.3 Not Estab. mg/dL [facility] Urine Protein/Creati nine Ratio 2,134(H) 0 - 200 mg/g creat [facility] 06/10/2024 10:0 6 AM EDT 06/10/2024 Kelechi Moran MD LAB URINE ORDERABLES Final Result [facility] [address] [place] [address] * (ABNORMAL) CBC and Differential (06/10/2024 10:06 AM EDT) WBC 8.0 3.4 - 10.8 x10E3/uL [facility] RBC 3.73(L) 3.77 - 5.28 x10E6/uL [facility] Hemoglobin 11.2 11.1 - 15.9 g/dL [facility] Hematocrit 33.6(L) 34.0 - 46.6 % [facility] MCV 90 79 - 97 fL [facility] MCH 30.0 26.6 - 33.0 pg [facility] MCHC 33.3 31.5 - 35.7 g/dL [facility] RDW 12.7 11.7 - 15.4 % [facility] Platelets 313 150 - 450 x10E3/uL [facility] Neutrophils Relative 72 Not Estab. % [facility] Lymphocytes Relative 19 Not Estab. % [facility] Monocytes 5 Not Estab. % [facility] Eosinophils Relative 3 Not Estab. % [facility] Basophils Relative 1 Not Estab. % [facility] Neutrophils Absolute 5.7 1.4 - 7.0 x10E3/uL [facility] Lymphocytes Absolute 1.5 0.7 - 3.1 x10E3/uL [facility] Monocytes Absolute 0.4 0.1 - 0.9 x10E3/uL [facility] Eosinophils Absolute 0.3 0.0 - 0.4 x10E3/uL [facility] Basophils Absolute 0.1 0.0 - 0.2 x10E3/uL [facility] Immature Granulocytes 0 Not Estab. % [facility] Immature Grans (Absolute) 0.0 0.0 - 0.1 x10E3/uL [facility] 06/10/2024 10:0 6 AM EDT 06/10/2024 us Kelechi Moran MD LAB BLOOD ORDERABLES Final Result [facility] [address] [place] [address] * (ABNORMAL) Renal Function Panel (06/10/2024 10:06 AM EDT) Glucose 98 70 - 99 mg/dL [facility] BUN 45(H) 8 - 27 mg/dL [facility] Creatinine 1.50(H) 0.57 - 1.00 mg/dL [facility] eGFR CKD-EPI CR 2020 39(L) >59 mL/min/1.7 3 [facility] BUN/Creatinine Ratio 30(H) 12 - 28 [facility] Sodium 136 134 - 144 mmol/L [facility] Potassium 4.4 3.5 - 5.2 mmol/L [facility] Chloride 100 96 - 106 mmol/L [facility] Bicarbonate (CO2) 19(L) 20 - 29 mmol/L [facility] Calcium 9.5 8.7 - 10.3 mg/dL [facility] Albumin 4.2 3.9 - 4.9 g/dL [facility] Phosphorus 4.2 3.0 - 4.3 mg/dL [facility] 06/10/2024 10:0 6 AM EDT 06/10/2024 Kelechi Moran MD LAB BLOOD ORDERABLES Final Result [facility] [address] [place] [address] from Last 3 Months Insurance [facility] Medicaid [place] Care Teams Supervisor Front Relationship Specialty Start Date End Date Janak Greer MD [address] PCP - General 12/18/18
--- OUTSIDE RECORDS SUMMARY | 2024-07-01 10:35 | XMS_ITS | Encounter Summary ---
Author Organization [facility] Address [address] [address] Phone Care Team Providers Care Editor In Chief Newspaper Name Role Phone Janak Greer MD Primary Care Provider [phone] Encounter Details Date Type Department Care Team (Late Contact Info) Description 05/17/2021 Documentation Only [facility] [address] [place] [address] Kelechi Moran MD [address] [place] [address] [place] [address] Social History Tobacco Use Types [...] [facility] [address] [place] [address] Kelechi Moran MD [address] [place] [address] [place] [address] documented as of this encounter Visit Diagnoses Not on filedocumented in this encounter Care Teams Editor In Chief Newspaper Relationship Specialty Start Date End Date Janak Greer MD [address] PCP - General 12/18/18 documented as of this encounter
--- OUTSIDE RECORDS SUMMARY | 2024-07-01 10:35 | XMS_ITS | Data Portability ---
Author Organization [place] [facility] Franca Grullon AONE Jonancy Address [address] [place] [address] Care Team Providers Care Crew Lead Name Role Phone ANUSHA VOGEL Primary Care Provider ANUSHA VOGEL Primary Care Provider [phone] Assessment Encounter Date Assessment Date Assessment LastModified [...] In the meantime she will continue with sndf-lsq-myxqize pain medication. We will set up the [...] degrees. The knee is stable within that cywjn-sr-hihexp to AP and ML stress. The alignment [...] is intact. MRI: Left wrist performed at [facility] April 05, 2023 reveals equivocal subluxation ECU. [...] degrees. The knee is stable within that ggnzn-gc-iusyss to AP and ML stress. The alignment [...] with right total knee arthroplasty using the Barrett total knee replacement system. However, it is [...] for right total knee replacement, robotic assisted, [place] joint replacement [place]. Not available 05/26/2023 10:08:43 Plan of Treatment Reminders Order Date Submit Date Provider Last Modified By Organization Details Last Modified Time Details Appointments None recorded. Lab None recorded. Referral None recorded. Procedures None recorded. Surgeries total knee arthroplast y (SURG) 2023 024 0 Not available 10:19:12 Imaging XR, knee, 4 or more view 2023 024 [email or web address] [facility], [address], [place], [address], 11:11:12 MRI, wrist, w/o contrast - Evaluate ECU/sixth extensor compartment for tenosynovit is.Please call patient to schedule and hand carry CD 2023 024 [email or web address] [facility], [address] [place], [address], 09:42:37 Medication Orders None recorded. Patient TargetsNo targets recorded. Patient Instructions Encounter Date Encounter Id Patient Instructions Last Modified By Organization Details Last Modified Time 03/24/2023 [id number] AP, lateral, Melchor, and patellar view radiographs of the right knee taken today demonstrate right knee degenerative joint disease with joint space narrowing, osteophyte formation, and subchondral sclerosis. there is igkz-co-ciuk articulation in the medial compartment. Not available 03/24/2023 11:00:11 Reason for Referral None Reported. Results Created Date Observation Date Name Description Value Unit Range Abnormal Flag Note LastModifiedBy Organization Detail LastModifiedTime 04/18/19 24 04/05/2023 MRI, wrist , w/o contr ast No observ ation record ed. [email or web address] [facility] [address] [place], [address], 04/18/2023 15:46:48 04/27/19 MRI, wrist , w/o contr ast No observ ation record ed. [email or web address] [facility] [address] [place], [address], 04/27/2023 08:42:31 Result Notes None recorded. 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 040177757 Active 2022 Dallin Lima MD [address], [facility] [place], [address], [place] [facility], P 3 17:40:16 Arthritis of first carpometaca rpal joint of left hand 0654277425792 103 Active 2022 Dallin Lima MD [address], [place], [address], [place] [facility], P 3 17:40:30 Instability of joint of right knee 4636933086263 102 Active 2022 TERESA SHINE PA-C [address], [place], [address], [place] [facility], P 3 09:18:55 Effusion of joint of right knee 9562893424431 04 Active 2022 TERESA SHINE PA-C [address], [place], [address], [place] [facility], P 3 10:05:35 Osteoarthri tis of right knee joint 3370424909940 00 Active 2022 TERESA SHINE PA-C [address], [place], [address], [place] [facility], P 3 12:46:54 Problem Notes None recorded. Procedures Surgical History Date Name Laterality Status Provider Name and Address Organization Details Recorded Time 02/22/19 24 AONE tendon sheath cortisone injection completed Dallin Lima MD [address], [place], [address], [place] [facility], [facility] 02/22/2023 10:43:39 12/30/19 23 Knee Joint/Bursa Asp & Inj completed TERESA SHINE PA-C [address], [place], [address], [place] [facility], P 12/29/2022 10:03:04 12/21/19 23 Knee Joint/Bursa Asp & Inj completed TERESA SHINE PA-C [address], [place], [address], [place] [facility], [facility] 12/20/2022 13:29:41 09/16/19 23 Knee Joint/Bursa Asp & Inj completed TERESA SHINE PA-C [address], [place], [address], [place] [facility], [facility] 09/15/2022 07:52:52 08/25/19 23 AONE tendon sheath cortisone injection completed Dallin Lima MD [address], [place], [address], [place] [facility], P 08/24/2022 12:40:55 06/21/19 23 Knee Joint/Bursa Asp & Inj completed TERESA SHINE PA-C [address] [facility],[address], [place], [address], [place] [facility], [facility] 06/19/2022 23:48:21 hysterectomy completed [facility] [place] [facility], [facility] 12/29/2022 08:44:02 procedure on urinary bladder completed [facility] [place] [facility], P 12/29/2022 08:44:53 procedure on shoulder completed [facility] [place] [facility], [facility] 12/29/2022 08:45:08 hernia repair completed [facility] [place] [facility], [facility] 12/29/2022 08:45:14 Imaging Results Imaging Date Name Status LastModified by Organiz ation Details LastModified Time 04/05/2023 MRI, wrist, w/o contrast completed [email or web address] [facility] [address] [place], [address], 04/18/2023 15:46:48 04/27/2023 MRI, wrist, w/o contrast completed [facility] [address] [place], [address], 04/27/2023 08:42:31 Procedure Notes None recorded. Medical [...] Updated DateTime 03/24/2023 162.56 cm 45.3 kg/m2 620657.[address] [place] [facility] 03/24/2023 10:44:14 Date Recorded Body height Body mass index (BMI) Body weight Provider Name and Address Organization Details Last Updated DateTime 05/26/2023 162.56 cm 44.3 kg/m2 804721.[address] [place] [facility] 05/26/2023 09:56:04 Social History Question Answer Notes LastModified by Organizat ion Details LastModified Time Tobacco Smoking Status Former Smoker Beatriz gottlieb, [place] [facility] 12/29/2022 08:46:38 When Did You Quit Smoking? 1-5yearssinc elastcigaret te Information not available 12/29/2022 Sex: Unknown Functional Status Question Answer Note LastModified by Organizat ion Details LastModified Time Do you use any illicit or recreational drugs? No Information not available 12/29/2022 Do you or have you ever used any other forms of tobacco or nicotine? No Information not available 12/29/2022 What is your level of alcohol consumption? None Information not available 12/29/2022 Mental Status None recorded. Family History Relationship [...] Anemia N Brain Injury N Heart Attack (ND) N Osteopenia N Diabetes Y Bleeding Disorder [...] Code Diagnosis Note [id number] MD BRANDEN Curran [address] [address] 06/08/2022 11:44:59 06/08/2022 12:08:20 Extensor tenosynovitis of wrist 693106406 M65.839 [id number] ELVIE GUTIERREZ [facility] [address] [address] 06/20/2022 11:03:15 06/20/2022 11:48:20 Pain of right knee joint 0524265286 94092 M25.561 Osteoarthr itis of right knee joint 7066976419 16125 M17.11 [id number] MD BRANDEN Curran [address] [address] 06/29/2022 10:05:38 06/29/2022 11:00:28 Pain of left wrist 5645707296 49637 M25.532 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 8851314514 99492 G56.02 [id number] MD BRANDEN Curran [address] [address] 08/03/2022 10:36:47 08/03/2022 11:31:14 Extensor tenosynovitis of wrist 243739666 M65.839 Arthritis of first carpometacarpal joint of left hand 3226402532 908944 M13.842 [id number] MD BRANDEN Curran [address] [address] 08/24/2022 11:23:15 08/24/2022 11:57:21 Extensor tenosynovitis of wrist 725791501 M65.839 Left ECU [id number] ELVIE GUTIERREZ [facility] [address] [place] [address] 09/15/2022 10:34:27 09/15/2022 11:35:33 Osteoarthritis of right knee joint 7821035438 39109 M17.11 [id number] ELVIE GUTIERREZ [facility] 299 [facility] [address] [facility] [place] [address] 12/20/2022 09:13:41 12/20/2022 10:01:14 Osteoarthritis of right knee joint 8070037419 92066 M17.11 [id number] ELVIE GUTIERREZ [facility] 299 [facility] 409 [facility] [place] [address] 12/29/2022 08:17:47 12/29/2022 09:01:45 Osteoarthritis of right knee joint 0227627074 79583 M17.11 Instabilit y of joint of right knee 0357740618 828493 M25.361 Effusion o f joint of right knee 8697920370 35649 M25.461 Right knee joint effusion [id number] ELVIE GUTIERREZ [facility] 299 [facility] 409 [facility] [place] [address] 01/03/2023 14:25:07 01/03/2023 15:04:47 Instability of joint of right knee 4421298670 535622 M25.361 Nonbillabl e visit [id number] ELVIE GUTIERREZ [facility] [address] [place] [address] 01/11/2023 10:36:20 01/11/2023 11:21:09 Instability of joint of right knee 3446138329 900693 M25.361 Osteoarthr itis of right knee joint 8058671130 97074 M17.11 [id number] MD BRANDEN Curran [address] [address] 02/22/2023 09:50:34 02/22/2023 10:26:40 Extensor tenosynovitis of wrist 017724698 M65.839 Left ECU [id number] ELVIE GUTIERREZ [facility] [address] [place] [address] 03/16/2023 10:50:05 03/16/2023 11:32:54 Osteoarthritis of right knee joint 9051318340 82491 M17.11 [id number] [facility] 113 [facility] [address] [place] [address] 03/22/2023 11:22:58 03/22/2023 11:37:45 Synovitis and tenosynovitis of joint of wrist 9200204438 M67.834 Left ECU [id number] MD BRANDEN Santiago [facility] 299 [facility] 409 [facility] [place] [address] 03/24/2023 10:25:15 03/24/2023 10:59:45 Pain of right knee joint 3694188041 55172 M25.561 Osteoarthr itis of right knee joint 3160319694 64192 M17.11 [id number] MD BRANDEN Curran [place] [address] [address] 04/19/2023 11:05:25 04/19/2023 11:34:04 Extensor tenosynovitis of wrist 498002856 M65.839 Left ECU [id number] MD BRANDEN Santiago [facility] [address] [place] [address] 05/26/2023 09:16:00 05/26/2023 10:12:04 Osteoarthritis of right knee joint 1160403862 08562 M17.11 Arthritis of knee 632534 002 M13.869 Health Concerns Section Related Observation LastModified by Organization Detai ls LastModified Time None Recorded Concern Status LastModified by Organization Details LastModified Time None Recorded Advance Directives Directive None Recorded Payers Encounter Date Sequence Insurance Name Policy Number Policy Azul Covered Member ID Azul Member ID Guarantor Name 03/16/2023 1 [employer] MEDICARE ADVANTAGE PLAN (MEDICARE REPLACEMENT HMO) [id number] Esperanza Dean [id number] Esperanza Dean 03/16/2023 2 [place] [facility] Esperanza Dean [id number] Esperanza Dean 03/22/2023 1 [facility] MEDICARE ADVANTAGE PLAN (MEDICARE REPLACEMENT HMO) [id number] Esperanza Dean [id number] Esperanzamurtaza Loveelin 03/24/2023 1 [employer] [place] [employer] MEDICARE ADVANTAGE PLAN (MEDICARE REPLACEMENT HMO) [id number] Esperanza Dean [id number] Esperanzamurtaza Loveelin 03/24/2023 2 [place] [facility] Esperanza Loveelin [id number] Esperanzafaheem LoveDianne 04/19/2023 1 [employer] [place] [employer] MEDICARE ADVANTAGE PLAN (MEDICARE REPLACEMENT HMO) [id number] Esperanza Loveelin [id number] Esperanza Dianne 05/26/2023 1 [employer] [place] [employer] MEDICARE ADVANTAGE PLAN (MEDICARE REPLACEMENT HMO) [id number] Esperanza Dean [id number] Esperanzamurtaza Loveelin 05/26/2023 2 [place] [facility] Esperanza Loveelin [id number] Esperanza Dean Notes Date Note Type Note [...] she is on Eliquis. TERESA SHINE PA-C [address] [place] [address], [address], [place] [facility] 03/16/2023 12:32:58 OBGyn Episode No OBEpisode recorded.
--- OUTSIDE RECORDS SUMMARY | 2024-07-01 10:35 | XMS_ITS | Encounter Summary ---
Author Organization [facility] Address [address] [place] [address] Care Team Providers Care Integrated Marketing Specialist Name Role Phone Janak Greer MD Primary Care Provider [phone] Encounter Details Date Type Department Care Team (Late st Contact Info) Description 09/28/2022 [facility] [address] [place] [phone] Rommel Whyte MD [address] [place] [phone] Social History Tobacco Use Types Packs/Day Years [...] on filedocumented in this encounter Care Teams Integrated Marketing Specialist Relationship Specialty Start Date End Date Janak Greer MD [address] [place] [address] PCP - General Internal Medicine 08/09/22 documented as of this encounter
--- OUTSIDE RECORDS SUMMARY | 2024-07-01 10:35 | XMS_ITS | Encounter Summary ---
Author Organization [facility] Address [address] [address] Phone Care Team Providers Care Geriatric Nursing Assistant Name Role Phone Janak Greer MD Primary Care Provider [phone] Encounter Details Date Type Department Care Team (Late Contact Info) Description 02/26/2021 Documentation Only [facility] [address] [place] [address] Kelechi Moran MD [address] [place] [address] [place] [address] Social History Tobacco Use Types [...] Visit [facility] [address] [place] [address] Kelechi Moran MD [address] [place] [address] [place] [address] documented as of this encounter Visit Diagnoses Not on filedocumented in this encounter Care Teams Geriatric Nursing Assistant Relationship Specialty Start Date End Date Janak Greer MD [address] PCP - General 12/18/18 documented as of this encounter
--- OUTSIDE RECORDS SUMMARY | 2024-07-01 10:35 | XMS_ITS | Encounter Summary ---
Author Organization [facility] Address [address] [address] Phone Care Team Providers Care Sign Maker Name Role Phone Janak Greer MD Primary Care Provider [phone] Encounter Details Date Type Department Care Team (Late Contact Info) Description 05/20/2021 Documentation Only [facility] [address] [place] [address] Kelechi Moran MD [address] [place] [address] [place] [address] Social History Tobacco Use Types [...] Visit [facility] [address] [place] [address] Kelechi Moran MD [address] [place] [address] [place] [address] documented as of this encounter Visit Diagnoses Not on filedocumented in this encounter Care Teams Sign Maker Relationship Specialty Start Date End Date Janak Greer MD [address] PCP - General 12/18/18 documented as of this encounter
--- OUTSIDE RECORDS SUMMARY | 2024-07-01 10:35 | XMS_ITS | Encounter Summary ---
Author Organization [facility] Address [address] [address] Phone Care Team Providers Care Box Brander Name Role Phone Janak Greer MD Primary Care Provider [phone] Encounter Details Date Type Department Care Team (Late Contact Info) Description 05/27/2021 Documentation Only [facility] [address] [place] [address] Kelechi Moran MD [address] [place] [address] [place] [address] Social History Tobacco Use Types [...] Visit [facility] [address] [place] [address] Kelechi Moran MD [address] [place] [address] [place] [address] documented as of this encounter Visit Diagnoses Not on filedocumented in this encounter Care Teams Box Brander Relationship Specialty Start Date End Date Janak Greer MD [address] PCP - General 12/18/18 documented as of this encounter
--- OUTSIDE RECORDS SUMMARY | 2024-07-01 10:35 | XMS_ITS | Clinical Summary ---
Author Organization [facility] Address [address] [place] [address] Care Team Providers Care Java Security Engineer Name Role Phone Janak Greer MD Primary Care Provider [phone] Allergies No known active allergies Medications No [...] - Risk 60-74 years 1-dose series) 2021 COVID-19 Vaccine (3 - season) 2023 2022, 10/27/2021 Influenza Vaccine 09/13/2024 2022, , 10/01/2019, Additional history exists Hepatitis B Vaccines Aged Out No long er eligible based on patient's age to complete this topic Insurance Care Teams Java Security Engineer Relationship Specialty Start Date End Date Janak Greer MD [address] [place] [address] PCP - General Internal Medicine 08/09/22
== END 2024-07-01 11:13 | disposition home or self-care (01) ==
LOC: HO.HBST 10:07
PROVIDERS: Visit Provider Counselor Mental Health
DX: F31.9 Bipolar disorder, unspecified (principal); F41.9 Anxiety disorder, unspecified; Z71.89 Other specified counseling
CPT/HCPCS: 90837

== ENCOUNTER → 2024-07-02 09:50 | Outpatient (BNV) | payer MEDICARE, MEDICAID, SELFPAY | PROVIDERS: PCP Internal Medicine; Referring Provider Surgery; Visit Provider Internal Medicine | DX: D64.9 Anemia, unspecified (principal) | CPT/HCPCS: 99204; G2211 ==

== ENCOUNTER 2024-07-05 09:21 | Outpatient (REF) | payer MEDICARE, MEDICAID, SELFPAY ==
--- NOTE | ~2024-07-05 | US_ITS ---
EXAMINATION: US ABDOMEN COMPLETE WITH LIVER ELASTOGRAPHY HISTORY: E66.01 - Morbid (severe) obesity due to excess calories TECHNIQUE: Real-time grayscale ultrasound imaging of the abdomen was performed and images were reviewed. COMPARISON: There are no prior studies for comparison. FINDINGS: Liver: The right lobe of the liver measures 21.0 cm in size. The left lobe of the liver measures 8.8 cm in size. The liver demonstrates normal homogeneous echotexture. No focal mass or intrahepatic biliary ductal dilatation is identified. There is normal hepatopedal flow in the portal vein. Ultrasound elastography of the liver was performed with 10 separate measurements of the liver parenchyma with the patient in the supine position. Measurements were obtained approximately 2 cm below Davi's capsule and perpendicular to the capsule. Images are of satisfactory quality. The median shear wave velocity is 1.84 m/s. The interquartile range/median (IQR/median) is 0.04. Gallbladder and biliary tree: The gallbladder is unremarkable, without evidence of calculi, wall thickening, or pericholecystic fluid. There is no sonographic Gilbert sign. The common bile duct is normal in caliber measuring 4 mm. Kidneys: The right kidney measures 13.2 cm in length. The left kidney measures 11.8 cm in length. Both kidneys demonstrate increased echotexture, compatible with chronic medical renal disease. There are multiple bilateral renal cysts, the largest on the right at the lower pole measuring 3.2 x 2.7 x 3.3 cm and the largest on the left in the interpolar region measuring 2.2 x 1.6 x 2.1 cm. There is no hydronephrosis or calculi. Pancreas: The pancreatic head, neck, and body are unremarkable. The pancreatic tail is obscured by bowel gas. Spleen: The spleen is normal in size and contour, measuring 10.1 cm in length. Abdominal aorta and inferior vena cava: The visualized portions of the abdominal aorta and inferior vena cava are normal in caliber. There is no free fluid in the abdomen. US/US abdomen comp w elastography IMPRESSION: 1. Hepatomegaly. 2. Increased bilateral renal echotexture consistent with chronic medical renal disease. Correlation with creatinine level is recommended. The median shear wave velocity in the liver is 1.84 m/s, corresponding to a median liver stiffness of 10.30 kPa. The IQR/median value is 0.04. This is indicative of a quality data set. Findings are indicative of a high elastography value suggestive of compensated advanced chronic liver disease. REFERENCE: Society of Radiologists in Ultrasound Liver Stiffness Thresholds (2020): LIVER STIFFNESS THRESHOLDS: *Shear wave velocity less than 1.3 m/s (Liver Stiffness equal or less than 5 kPa): High probability of being normal. *Shear wave velocity less than 1.7 m/s (Liver Stiffness less than 9 kPa): In the absence of other known clinical signs, rules out compensated advanced chronic liver disease. *Shear wave velocity between 1.7-2.1 m/s (Liver Stiffness 9-13 kPa): Suggestive of compensated advanced chronic liver disease but need further test for confirmation. *Shear wave velocity between 2.1-2.4 m/s (Liver Stiffness 13-17 kPa): Rules in compensated advanced chronic liver disease. *Shear wave velocity greater than 2.4 m/s (Liver Stiffness over 17 kPa): Suggestive of clinically significant portal hypertension. QUALITY OF DATA SET: *IQR/Median value equal or less than 0.15 implies a quality data set. *IQR/Median value over 0.15 implies a poor quality data set. SIGNIFICANT CHANGE FROM PRIOR EXAM: Significant change if liver stiffness measurement is 10% or greater from prior exam. OTHER CONSIDERATIONS: The stage of liver fibrosis may be overestimated in the setting of acute hepatitis, liver inflammation, elevated liver function tests, hepatic vascular congestion, obstructive cholestasis, non-fasting state, and infiltrative diseases such as amyloidosis and lymphoma. In some patients with NAFLD, the liver stiffness thresholds for compensated advanced chronic liver disease may be lower. In causes other than viral hepatitis and NAFLD, liver stiffness thresholds are not well established. Electronically signed by: Hudson Rico MD 07/05/2024 10:45 AM EDT
--- OUTSIDE RECORDS SUMMARY | 2024-07-05 09:34 | XMS_ITS | Encounter Summary ---
Author Organization [facility] Address [address] [place] [address] Care Team Providers Care Chiller Tender Name Role Phone Janak Greer MD Primary Care Provider [phone] Encounter Details Date Type Department Care Team (Late st Contact Info) Description 06/06/2023 Scanned Document [address] [place] [phone] Provider, Generic Social History Tobacco Use Types [...] on filedocumented in this encounter Care Teams Chiller Tender Relationship Specialty Start Date End Date Janak Greer MD [address] [place] [address] PCP - General Internal Medicine 08/09/22 documented as of this encounter
== END 2024-07-05 09:22 | disposition home or self-care (01) ==
LOC: HO.US 09:21
PROVIDERS: Visit Provider Surgery
DX: E66.01 Morbid (severe) obesity due to excess calories (principal); E11.9 Type 2 diabetes mellitus without complications; K21.9 Gastro-esophageal reflux disease without esophagitis; E03.9 Hypothyroidism, unspecified
CPT/HCPCS: 76700; 76981

== ENCOUNTER → 2024-07-05 09:23 | Outpatient (BNV) | payer MEDICARE, MEDICAID, SELFPAY | PROVIDERS: Visit Provider Radiology Diagnostic Radiology | DX: R16.0 Hepatomegaly, not elsewhere classified (principal) | CPT/HCPCS: 76700; 76981 ==

== ENCOUNTER 2024-07-16 11:12 | Day surgery (SDC) | payer MEDICARE, MEDICAID, SELFPAY ==
--- OUTSIDE RECORDS SUMMARY | 2024-06-11 07:29 | XMS_ITS | Clinical Summary ---
Author Organization [facility] Address [address] [place] [address] Care Team Providers Care Scaffold Setter Name Role Phone Janak Greer MD Primary Care Provider Allergies No known active allergies Medications Medication [...] 0 05/13/2019 Act kay Continuous Blood Gluc Respooler (FreeStyle Joseph 14 Day [place]) PABLO 0 01/29/2019 Active Continuous Blood Gluc [...] Quadrivalent) 0.5 ML ROSE MARIE Flucelvax Quad 3063-3823 (PF) 60 mcg (15 mcg x 4)/0.5 [...] ambreen lite 0 Active Continuous Blood Gluc Respooler (FreeStyle Joseph 14 Day [place]) PABLO FreeStyle Joseph 14 Day [place] 0 Active Lancets (freestyle) lancets FreeStyle Joseph [...] age to complete this topic Care Teams Scaffold Setter Relationship Specialty Start Date End Date Janak Greer MD [address] [place] [address] PCP - General Internal Medicine 12/27/18
--- OUTSIDE RECORDS SUMMARY | 2024-06-11 07:29 | XMS_ITS | Encounter Summary ---
Author Organization [facility] Address [address] [address] Phone Care Team Providers Care Automation Control Integrator Name Role Phone Janak Greer MD Primary Care Provider [phone] Encounter Details Date Type Department Care Team (Late Contact Info) Description 05/27/2021 Documentation Only [facility] [address] [place] [address] Kelechi Moran MD [address] [place] [address] [place] [address] Social History Tobacco Use Types [...] Visit [facility] [address] [place] [address] Kelechi Moran MD [address] [place] [address] [place] [address] documented as of this encounter Visit Diagnoses Not on filedocumented in this encounter Care Teams Automation Control Integrator Relationship Specialty Start Date End Date Janak Greer MD [address] PCP - General 12/18/18 documented as of this encounter
--- OUTSIDE RECORDS SUMMARY | 2024-06-11 07:29 | XMS_ITS | Encounter Summary ---
Author Organization [facility] Address [address] [place] [address] Care Team Providers Care Pearl Diver Name Role Phone Janak Greer MD Primary Care Provider [phone] Encounter Details Date Type Department Care Team (Late st Contact Info) Description 10/07/2022 Telephone [facility] [address] [place] [phone] Rommel Whyte MD [address] [place] [address] Social History Tobacco Use Types Packs/Day Years [...] on filedocumented in this encounter Care Teams Pearl Diver Relationship Specialty Start Date End Date Janak Greer MD [address] [place] [address] PCP - General Internal Medicine 08/09/22 documented as of this encounter
--- OUTSIDE RECORDS SUMMARY | 2024-06-11 07:29 | XMS_ITS | Patient Health Record ---
Author Organization [facility] Address [address] [place] [address] Care Team Providers Care Food Adviser Name Role Phone Caprice Staples Unavailable [phone] Reason For Referral No Information Medications Medication SIG (Take, Route, Frequency, Duration) Notes Start Date End Date Status Topiramate 50MG 1 ORAL twice daily for [facility] 04/11/19 14 Active metFORMIN HCl 500MG 1 ORAL four times da negro for [facility] 04/11/2013 Active Luz 0.05MG 1 patch to skin Transdermal TWICE WEEKLY [facility] 04/04/2013 Active Vitamin D3 5,000 IU 1 ORAL daily for [facility] 04/11/2013 Active PriLOSEC OTC 20 MG 1 tablet Orally Once a day Active Atorvastatin Calcium 80 MG 1 tablet Oral ly Once a day Active Aspirin EC 81MG 1 ORAL daily for [facility] 04/11/2013 Active Abilify 2MG 1 ORAL daily for [facility] 04/11/2013 Active Restasis 0.05 % 1 into affected eye Ophthalmic Twice a day Active Luz 0.05 MG/24HR 1 patch to skin Transdermal TWICE WEEKLY for 90 days 07/22/2014 Active LORazepam 1MG 1 ORAL three times d aily for [facility] 04/11/2013 Active glipiZIDE 5MG ORAL three times greg ly for [facility] 04/11/2013 Active Cymbalta 60MG 1 ORAL daily for [facility] 04/11/2013 Active Problems Problem Type SNOMED Code ICD Code Onset Dates Problem Status W/U Status Risk Notes Problem Type II diabetes mellitus uncontrolled (390933206) Diabetes mellitus without mention of complication, type II or unspecified type, uncontrolled (250.02) Active confirmed Diag Problem Hyperlipidemia (07239308) Other and unspecified hyperlipidemia (272.4) Active confirmed Major Problem Menopausal symptom (80334267) Symptomatic menopausal or female climacteric states (627.2) Active confirmed Diag Problem Muscle pain (87834759) Unspecified myalgia and myositis (729.1) Active confirmed Major Problem Gynecological examination normal (863656674739249) Routine gynecological examination (V72.31) Active confirmed Major Plan Of Treatment Pending Test Test Name Order Date MAMMOGRAM, SCREENING 07/22/2014 Insurance Providers Payer Name Payer Address Payer Phone Subscriber Number Group Number Insured Name Patient Relationship to Insured Coverage Start Date Coverage End Date [employer] MED[employer]ARE [employer]AGE [facility] [address] [place] [address] [id number] CHEVY WOLF Self - patient is the [...]
--- OUTSIDE RECORDS SUMMARY | 2024-06-11 07:29 | XMS_ITS | Encounter Summary ---
Author Organization [facility] Address [address] [address] Phone Care Team Providers Care Shoe Salesperson Name Role Phone Janak Greer MD Primary Care Provider [phone] Encounter Details Date Type Department Care Team (Late Contact Info) Description 05/20/2021 Documentation Only [facility] [address] [place] [address] Kelechi Moran MD [address] [place] [address] [place] [address] Social History Tobacco Use Types [...] Visit [facility] [address] [place] [address] Kelechi Moran MD [address] [place] [address] [place] [address] documented as of this encounter Visit Diagnoses Not on filedocumented in this encounter Care Teams Shoe Salesperson Relationship Specialty Start Date End Date Janak Greer MD [address] PCP - General 12/18/18 documented as of this encounter
--- OUTSIDE RECORDS SUMMARY | 2024-06-11 07:29 | XMS_ITS | Encounter Summary ---
Author Organization [facility] Address [address] [address] Phone Care Team Providers Care Director Export Name Role Phone Janak Greer MD Primary Care Provider [phone] Reason for Visit * Reason Comments New Med Request Encounter Details Date Type Department Care Team (Late Contact Info) Description 04/12/2022 Refill [facility] [address] [place] [address] Kelechi Moran MD [address] [place] [address] [place] [address] Social History Tobacco Use Types [...] [facility] [address] [place] [address] Kelechi Moran MD [address] [place] [address] [place] [address] documented as of this encounter Visit Diagnoses Not on filedocumented in this encounter Care Teams Director Export Relationship Specialty Start Date End Date Janak Greer MD [address] PCP - General 12/18/18 documented as of this encounter
--- OUTSIDE RECORDS SUMMARY | 2024-06-11 07:29 | XMS_ITS | Encounter Summary ---
Author Organization [facility] Address [address] [address] Phone Care Team Providers Care Signs Sales Representative Name Role Phone Janak Greer MD Primary Care Provider [phone] Encounter Details Date Type Department Care Team (Late Contact Info) Description 05/17/2021 Documentation Only [facility] [address] [place] [address] Kelechi Moran MD [address] [place] [address] [place] [address] Social History Tobacco Use Types [...] Visit [facility] [address] [place] [address] Kelechi Moran MD [address] [place] [address] [place] [address] documented as of this encounter Visit Diagnoses Not on filedocumented in this encounter Care Teams Signs Sales Representative Relationship Specialty Start Date End Date Janak Greer MD [address] PCP - General 12/18/18 documented as of this encounter
--- OUTSIDE RECORDS SUMMARY | 2024-06-11 07:29 | XMS_ITS | Encounter Summary ---
Author Organization [facility] Address [address] [place] [address] Care Team Providers Care Video Game Technician Name Role Phone Janak Greer MD Primary Care Provider [phone] Encounter Details Date Type Department Care Team (Late st Contact Info) Description 09/28/2022 [facility]phone [facility] [address] [place] [phone] Rommel Whyte MD [address] [place] [address] Social History Tobacco Use Types Packs/Day Years [...] on filedocumented in this encounter Care Teams Video Game Technician Relationship Specialty Start Date End Date Janak Greer MD [address] [place] [address] PCP - General Internal Medicine 08/09/22 documented as of this encounter
--- OUTSIDE RECORDS SUMMARY | 2024-06-11 07:29 | XMS_ITS | Encounter Summary ---
Author Organization [facility] Address [address] [place] [address] Care Team Providers Care Stone Lathe Operator Name Role Phone Janak Greer MD Primary Care Provider [phone] Reason for Visit * Reason Comments Med Change Request Encounter Details Date Type Department Care Team ([facility] st Contact Info) Description 10/04/2022 Refill [facility] [address] [address] Leslie Howell PA-C [address] [place] [address] Visit for wound check Social History Tobacco [...] check documented in this encounter Care Teams Stone Lathe Operator Relationship Specialty Start Date End Date Janak Greer MD [address] [place] [address] PCP - General Internal Medicine 08/09/22 documented as of this encounter
--- OUTSIDE RECORDS SUMMARY | 2024-06-11 07:29 | XMS_ITS | Encounter Summary ---
Author Organization [facility] Address [address] [place] [address] Care Team Providers Care Senior Financial Name Role Phone Janak Greer MD Primary Care Provider [phone] Encounter Details Date Type Department Care Team (Late st Contact Info) Description 09/27/2022 Scanned Document [facility] [address] [address] Rommel Whyte MD [address] [place] [address] Social History Tobacco Use Types Packs/Day Years [...] on filedocumented in this encounter Care Teams Senior Financial Relationship Specialty Start Date End Date Janak Greer MD [address] [place] [address] PCP - General Internal Medicine 08/09/22 documented as of this encounter
--- OUTSIDE RECORDS SUMMARY | 2024-06-11 07:29 | XMS_ITS | Clinical Summary ---
Author Organization [facility] Address [address] [place] [address] Phone Care Team Providers Care Asbestos Remover Name Role Phone Janak Greer MD Primary Care Provider [phone] Allergies No known active allergies Medications apixaban [...] 02/25/2020 DX:Depression Diabetes mellitus type 2, uncomplicated ([facility] V24, [facility] V28) 02/25/2020 DX:Diabetes mellitus type 2, uncomplicated (HCC) Bipolar disorder ([facility] V2 4, [facility] V28) 02/25/2020 DX:Bipolar disorder (HCC) SHAWN (obstructive sleep apnea) 02/25/2020 DX :SHAWN (obstructive sleep apnea) Severe obesity with body mas s index (BMI) of 35.0 to 39.9 with comorbidity (CMS/HCC V24, [facility] V28) 02/25/2020 DX:Severe obesity with body mass index (BMI) of 35.0 to 39.9 with comorbidity ([facility]) History of pulmonary embolus (PE) 02/25/2020 DX:History of pulmonary embolus (PE) Dyspnea 02/25/2020 DX:Dyspnea Blood clotting tendency ([facility] V24) DX:Blood clotting tendency (HCC) Diabetes mellitus ([facility] V 24, [facility] V28) DX:Diabetes mellitus (HCC) High blood pressure [...] Maintenance Results * COLONOSCOPY Anesthesia - MAC; [facility] ENDOSCOPY (03/04/2024 8:56 AM EST) Anatomical Region [...] previously scheduled. Narrative 03/04/2024 8:56 AM EST [facility] GI Patient Name: Esperanza Dean Procedure [...] Procedure Code(s): ? --- Professional --- ? 01880, Colonoscopy, flexible; diagnostic, including ? collection of specimen(s) by brushing or washing, when ? performed (separate procedure) Diagnosis Code(s): ? --- Professional --- ? Z12.11, Encounter for screening for malignant neoplasm ? of colon CPT copyright 2020 [employer]. All rights reserved. The codes documented in this report are preliminary and upon mri technician review may be revised to meet current compliance requirements. Yovanny Harvey MD 03/04/2024 8:56:08 AM This report has been signed electronically.Yovanny Harvey MD Number of Addenda: 0 Note Initiated On: 03/04/2024 8:33 AM Scope In: Scope Out: ? Endoscopy Department at [facility] - [address] [place] [address], ? [place] [address] Procedure Note Yovanny Harvey MD - 03/04/2024 [facility] GI Patient Name: Esperanza Dean Procedure [...] retroflexion views. Procedure Code(s): --- Professional --- 43917, Colonoscopy, flexible; diagnostic, including collection of specimen(s) by brushing or washing,when performed (separate procedure) Diagnosis Code(s): --- Professional --- Z12.11, Encounter for screening for malignantneoplasm of colon CPT copyright 2020 [employer]. All rights reserved. The codes documented in this report are preliminary and upon mri technician reviewmay be revised to meet current compliance requirements. Yovanny Harvey MD 03/04/2024 8:56:08 AM This report has been signed electronically.Yovanny Harvey MD Number of Addenda: 0 Note Initiated On: 03/04/2024 8:33 AM Scope In: Scope Out: Endoscopy Department at [facility] - [address] [place] [address] IMPRESSION: - Diverticulosis in the sigmoid colon. [...] MEDICARE ADVANTAGE [place] - [place] Care Teams Asbestos Remover Relationship Specialty Start Date End Date Janak Greer MD PCP - General Internal Medicine 05/26/08
--- OUTSIDE RECORDS SUMMARY | 2024-06-11 07:29 | XMS_ITS | Encounter Summary ---
Author Organization [facility] Address [address] [place] [address] Care Team Providers Care Research And Evaluation Analyst Name Role Phone Janak Greer MD Primary Care Provider [phone] Encounter Details Date Type Department Care Team (Late st Contact Info) Description 09/30/2022 Refill [facility] [address] [address] Rommel Whyte MD [address] [place] [address] [place] [address] Chronic pain of left ankle Social History [...] documented in this encounter Care Teams Research And Evaluation Analyst Relationship Specialty Start Date End Date Janak Greer MD [address] [place] [address] PCP - General Internal Medicine 08/09/22 documented as of this encounter
--- OUTSIDE RECORDS SUMMARY | 2024-06-11 07:30 | XMS_ITS | Encounter Summary ---
Author Organization [facility] Address [address] [address] Phone Care Team Providers Care Cnc Field Service Engineer Name Role Phone Janak Greer MD Primary Care Provider [phone] Encounter Details Date Type Department Care Team (Late Contact Info) Description 02/26/2021 Documentation Only [facility] [address] [place] [address] Kelechi Moran MD [address] [place] [address] [place] [address] Social History Tobacco Use Types [...] Visit [facility] [address] [place] [address] Kelechi Moran MD [address] [place] [address] [place] [address] documented as of this encounter Visit Diagnoses Not on filedocumented in this encounter Care Teams Cnc Field Service Engineer Relationship Specialty Start Date End Date Janak Greer MD [address] PCP - General 12/18/18 documented as of this encounter
--- OUTSIDE RECORDS SUMMARY | 2024-06-11 07:30 | XMS_ITS | Data Portability ---
Author Organization [facility] Franca Grullon [facility] [place] Address [address] [place] [address] Care Team Providers Care Oil Burner Servicer And Installer Name Role Phone ANUSHA VOGEL Primary Care Provider ANUSHA VOGEL Primary Care Provider Assessment Encounter [...] In the meantime she will continue with exin-quv-gzwvehv pain medication. We will set up the [...] degrees. The knee is stable within that threc-ky-mbbjot to AP and ML stress. The alignment [...] is intact. MRI: Left wrist performed at [facility] April 05, 2023 reveals equivocal subluxation ECU. [...] degrees. The knee is stable within that fpiql-xu-ybujca to AP and ML stress. The alignment [...] for right total knee replacement, robotic assisted, [place] joint replacement [place]. Not available 05/26/2023 10:08:43 Plan of Treatment Reminders Order Date Submit Date Provider Last Modified By Organization Details Last Modified Time Details Appointments None recorded. Lab None recorded. Referral None recorded. Procedures None recorded. Surgeries total knee arthroplast y (SURG) 2023 024 0 Not available 10:19:12 Imaging XR, knee, 4 or more view 2023 024 [email or web address] [facility], [address], [place], [address], 11:11:12 MRI, wrist, w/o contrast - Evaluate ECU/sixth extensor compartment for tenosynovit is.Please call patient to schedule and hand carry CD [email or web address] [facility], [address] [place], [address], 09:42:37 Medication Orders None recorded. Patient TargetsNo targets recorded. Patient Instructions Encounter Date Encounter Id Patient Instructions Last Modified By Organization Details Last Modified Time 03/24/2023 [id number] AP, lateral, Melchor, and patellar view radiographs of the right knee taken today demonstrate right knee degenerative joint disease with joint space narrowing, osteophyte formation, and subchondral sclerosis. there is fsya-fa-qraf articulation in the medial compartment. Not available 03/24/2023 11:00:11 Reason for Referral None Reported. Results Created Date Observation Date Name Description Value Unit Range Abnormal Flag Note LastModifiedBy Organization Detail LastModifiedTime 04/18/19 24 04/05/2023 MRI, wrist , w/o contr ast No observ ation record ed. [email or web address] [facility] [address] [place], [address], 04/18/2023 15:46:48 04/27/19 MRI, wrist , w/o contr ast No observ ation record ed. [email or web address] [facility] [address] [place], [address], 04/27/2023 08:42:31 Result Notes None recorded. 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 887348957 Active 2022 Dallin Lima MD [address], [facility] [place], [address], [place] [facility], P 3 17:40:16 Arthritis of first carpometaca rpal joint of left hand 9553793765743 103 Active 2022 Dallin Lima MD [address], [facility] [place], [address], [place] [facility], P 3 17:40:30 Instability of joint of right knee 2672306652267 102 Active 2022 TERESA SHINE PA-C [address], [place], [address], [place] [facility], P 3 09:18:55 Effusion of joint of right knee 0545582564320 04 Active 2022 TERESA SHINE PA-C [address], [place], [address], [place] [facility], P 3 10:05:35 Osteoarthri tis of right knee joint 1614452099795 00 Active 2022 TERESA SHINE PA-C [address], [place], [address], [place] [facility], P 3 12:46:54 Problem Notes None recorded. Procedures Surgical History Date Name Laterality Status Provider Name and Address Organization Details Recorded Time 02/22/19 24 AONE tendon sheath cortisone injection completed Dallin Lima MD [address], [place], [address], [place] [facility], P 02/22/2023 10:43:39 12/30/19 23 Knee Joint/Bursa Asp & Inj completed TERESA SHINE PA-C [address], [place], [address], [place] [facility], P 12/29/2022 10:03:04 12/21/19 23 Knee Joint/Bursa Asp & Inj completed TERESA SHINE PA-C [address], [place], [address], [place] [facility], P 12/20/2022 13:29:41 09/16/19 23 Knee Joint/Bursa Asp & Inj completed TERESA SHINE PA-C [address], [place], [address], [place] [facility], P 09/15/2022 07:52:52 08/25/19 23 AONE tendon sheath cortisone injection completed Dallin Lima MD [address], [place], [address], [place] [facility], P 08/24/2022 12:40:55 06/21/19 23 Knee Joint/Bursa Asp & Inj completed TERESA SHINE PA-C [address] [facility],[address], [place], [address], [place] [facility], [facility] 06/19/2022 23:48:21 hysterectomy completed [facility] [place] [facility], P 12/29/2022 08:44:02 procedure on urinary bladder completed [facility] [place] [facility], P 12/29/2022 08:44:53 procedure on shoulder completed [facility] [place] [facility], P 12/29/2022 08:45:08 hernia repair completed [facility] [place] [facility], [facility] 12/29/2022 08:45:14 Imaging Results Imaging Date Name Status LastModified by Organiz ation Details LastModified Time 04/05/2023 MRI, wrist, w/o contrast completed [email or web address] [facility] [address] [place], [address], 04/18/2023 15:46:48 04/27/2023 MRI, wrist, w/o contrast completed [email or web address] [facility] [address] [place], [address], 04/27/2023 08:42:31 Procedure Notes None recorded. Medical [...] Updated DateTime 03/24/2023 162.56 cm 45.3 kg/m2 521494.[address] [place] [facility], P 03/24/2023 10:44:14 Date Recorded Body height Body mass index (BMI) Body weight Provider Name and Address Organization Details Last Updated DateTime 05/26/2023 162.56 cm 44.3 kg/m2 627345.[address] [place] [facility] 05/26/2023 09:56:04 Social History Question Answer Notes LastModified by Organizat ion Details LastModified Time Tobacco Smoking Status Former Smoker Beatriz gottlieb, [place] [facility] 12/29/2022 08:46:38 What Is Your Level [...] Artery Disease N Gout N Hyperthyroidism N MRSA N Blood Transfusion N Emphysema N COPD N Depression N Hypothyroidism Y Pacemaker N Vascular Disease N Gastrointestinal Disease N Anxiety Disorder N Autoimmune disease N Arthritis N Cancer N Stroke N High Cholesterol N Neurologic Disorder N Liver Disease N Organ Transplant N Arrhythmia N Rheumatoid Arthritis N Fibromyalgia N Kidney Disease Y Allergies/Hayfever N Adverse Reaction to Anesthesia N Thyroid Problems N Anemia N Brain Injury N Heart Attack ([place]) N Osteopenia N Diabetes Y Bleeding Disorder [...] Code Diagnosis Note [id number] MD BRANDEN Curran [address] [address] 06/08/2022 11:44:59 06/08/2022 12:08:20 Extensor tenosynovitis of wrist 114275457 M65.839 [id number] MD [facility] [address] [place] [address] 06/20/2022 11:03:15 06/20/2022 11:48:20 Pain of right knee joint 6858675872 77339 M25.561 Osteoarthr itis of right knee joint 1483634496 91586 M17.11 [id number] MD BRANDEN Curran [address] [address] 06/29/2022 10:05:38 06/29/2022 11:00:28 Pain of left wrist 9999274370 70725 M25.532 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 0148615669 16729 G56.02 [id number] MD BRANDEN Curran [address] [address] 08/03/2022 10:36:47 08/03/2022 11:31:14 Extensor tenosynovitis of wrist 559208788 M65.839 Arthritis of first carpometacarpal joint of left hand 8675210397 268440 M13.842 [id number] MD BRANDEN Curran [address] [address] 08/24/2022 11:23:15 08/24/2022 11:57:21 Extensor tenosynovitis of wrist 472934813 M65.839 Left ECU [id number] MD BRANDEN Santiagosingh crump 299 [facility] [address] [facility] [place] [address] 09/15/2022 10:34:27 09/15/2022 11:35:33 Osteoarthritis of right knee joint 2323149222 65222 M17.11 [id number] MD BRANDEN Santiagosingh [address] [address] 12/20/2022 09:13:41 12/20/2022 10:01:14 Osteoarthritis of right knee joint 4960648584 00874 M17.11 [id number] [facility] [address] [address] 12/29/2022 08:17:47 12/29/2022 09:01:45 Osteoarthritis of right knee joint 9183432774 42592 M17.11 Instabilit y of joint of right knee 7937910898 221978 M25.361 Effusion o f joint of right knee 2508149460 97817 M25.461 Right knee joint effusion [id number] MD BRANDEN Santiagosingh [address] [address] 01/03/2023 14:25:07 01/03/2023 15:04:47 Instability of joint of right knee 4078236240 466826 M25.361 Nonbillabl e visit [id number] MD [facility] [address] [address] 01/11/2023 10:36:20 01/11/2023 11:21:09 Instability of joint of right knee 8878426064 371470 M25.361 Osteoarthr itis of right knee joint 0479144366 01082 M17.11 [id number] MD BRANDEN Curran [address] [address] 02/22/2023 09:50:34 02/22/2023 10:26:40 Extensor tenosynovitis of wrist 407349467 M65.839 Left ECU [id number] MD BRANDEN Santiago [address] [address] 03/16/2023 10:50:05 03/16/2023 11:32:54 Osteoarthritis of right knee joint 3945469358 52052 M17.11 [id number] Malia Mehta BRANDEN [place] [address] [address] 03/22/2023 11:22:58 03/22/2023 11:37:45 Synovitis and tenosynovitis of joint of wrist 3114234237 M67.834 Left ECU [id number] MD [facility]EN [facility] 299 [facility] [address] [place] [address] 03/24/2023 10:25:15 03/24/2023 10:59:45 Pain of right knee joint 0444876057 76575 M25.561 Osteoarthr itis of right knee joint 6849986303 42234 M17.11 [id number] MD BRANDEN Curran [place] [address] [address] 04/19/2023 11:05:25 04/19/2023 11:34:04 Extensor tenosynovitis of wrist 640069439 M65.839 Left ECU [id number] MD BRANDEN Santiago [facility] 299 [facility] [address] [place] [address] 05/26/2023 09:16:00 05/26/2023 10:12:04 Osteoarthritis of right knee joint 8193749691 54337 M17.11 Arthritis of knee 237681 002 M13.869 Health Concerns Section Related Observation LastModified by Organization Detai ls LastModified Time None Recorded Concern Status LastModified by Organization Details LastModified Time None Recorded Advance Directives Directive None Recorded Payers Encounter Date Sequence Insurance Name Policy Number Policy Azul Covered Member ID Azul Member ID Guarantor Name 03/16/2023 1 [employer] [place] MEDICARE ADVANTAGE [facility] (MEDICARE REPLACEMENT HMO) [id number] Esperanza Dean [id number] Esperanza Dean 03/16/2023 2 [place] [facility] Esperanza Dean [id number] Esperanza Dean 03/22/2023 1 [employer] [place] MEDICARE ADVANTAGE PLAN (MEDICARE REPLACEMENT HMO) [id number] Esperanza Dean [id number] Esperanza Dean 03/24/2023 1 [employer] [place] [employer] MEDICARE ADVANTAGE PLAN (MEDICARE REPLACEMENT HMO) [id number] Esperanza Dean [id number] Esperanzamurtaza Loveelin 03/24/2023 2 [place] [facility] Esperanza Dean [id number] Esperanzamurtaza Dean 04/19/2023 1 [employer] [place] MEDICARE ADVANTAGE PLAN (MEDICARE REPLACEMENT HMO) [id number] Esperanza Dean [id number] Esperanzafaheem LoveDianne 05/26/2023 1 [employer] [place] MEDICARE ADVANTAGE PLAN (MEDICARE REPLACEMENT HMO) [id number] Esperanza Dean [id number] Esperanzafaheem LoveDianne 05/26/2023 2 [place] [facility] Esperanza Loveelin [id number] Esperanza Loveelin Notes Date Note Type Note [...] she is on Eliquis. TERESA SHINE PA-C [address] [place] [address], [address], [place] [facility] P 03/16/2023 12:32:58 OBGyn Episode No OBEpisode recorded.
--- OUTSIDE RECORDS SUMMARY | 2024-06-11 07:30 | XMS_ITS | Clinical Summary ---
Author Organization [facility], Address [address] [place] [address] [place] [address] Phone Care Team Providers Care Supervisor Nuclear Medicine Name Role Phone Janak Greer MD Primary Care Provider [phone] Allergies No known active allergies Medications aspirin (ST JULI) 81 MG EC tablet Take 1 tablet by mouth 1 (one) time each day Active Multiple Vitamins-Aulander als (CENTRUM SILVER PO) Take 1 tablet [...] MG tablet 9 Active Continuous Blood Gluc Wet Roaster (FREESTYLE KAPIL 14 DAY READER) device 9 [...] Visit [facility] [place], [address] [place] [address] Kelechi Moran MD [address] [place] [phone] Health Maintenance Due Date Last Done Comments [...] Procedure Name Priority Date/Time Associated Diagnosis Comments PROTEIN / CREATININE RATIO, URINE Routine 06/10/2024 10:06 AM EDT RENAL FUNCTION PANEL Routine 06/10/2024 10:06 AM EDT CBC AND DIFFERENTIAL Routine 06/10/2024 10:06 AM EDT from Last 3 Months Results * (ABNORMAL) CBC and Differential (06/10/2024 10:06 AM EDT) Pathologist [facility] WBC 8.0 3.4 - 10.8 x10E3/uL [facility] RBC 3.73(L) 3.77 - 5.28 x10E6/uL [facility] Hemoglobin 11.2 11.1 - 15.9 g/dL [facility] Hematocrit 33.6(L) 34.0 - 46.6 % [facility] MCV 90 79 - 97 fL [facility] MCH 30.0 26.6 - 33.0 pg [facility] MCHC 33.3 31.5 - 35.7 g/dL [facility] RDW 12.7 11.7 - 15.4 % [facility] Platelets 313 150 - 450 x10E3/uL [facility] Neutrophils Relative 72 Not Estab. % [facility] Lymphocytes Relative 19 Not Estab. % [facility] Monocytes 5 Not Estab. % [facility] Eosinophils Relative 3 Not Estab. % [facility] Basophils Relative 1 Not Estab. % [facility] Neutrophils Absolute 5.7 1.4 - 7.0 x10E3/uL [facility] Lymphocytes Absolute 1.5 0.7 - 3.1 x10E3/uL [facility] Monocytes Absolute 0.4 0.1 - 0.9 x10E3/uL [facility] Eosinophils Absolute 0.3 0.0 - 0.4 x10E3/uL [facility] Basophils Absolute 0.1 0.0 - 0.2 x10E3/uL [facility] Immature Granulocytes 0 Not Estab. % [facility] Immature Grans (Absolute) 0.0 0.0 - 0.1 x10E3/uL [facility] 06/10/2024 10:0 6 AM EDT 06/10/2024 us Kelechi Moran MD LAB BLOOD ORDERABLES Final Result [facility] [address] [place] [address] from Last 3 Months Insurance [facility] [place] Member Subscriber Plan / Payer (Ef fective 2022-Present) Name:Esperanza Dean Relation to Subscriber:Self Name:Bill Deanndy Mónica Payer ID:Not on file Type:Not on file Address: [address] [phone] Medicaid [place] Care Teams Supervisor Nuclear Medicine Relationship Specialty Start Date End Date Janak Greer MD [address] PCP - General 12/18/18
--- OUTSIDE RECORDS SUMMARY | 2024-06-11 07:30 | XMS_ITS | Encounter Summary ---
Author Organization [facility] Address [address] [address] Phone Care Team Providers Care Supervisor Of Instruction Name Role Phone Janak Greer MD Primary Care Provider [phone] Encounter Details Date Type Department Care Team (Late Contact Info) Description 04/01/2021 Documentation Only [facility] [address] [place] [address] Kelechi Moran MD [address] [place] [address] [place] [address] Social History Tobacco Use Types [...] [facility] [address] [place] [address] Kelechi Moran MD [address] [place] [address] [place] [address] documented as of this encounter Visit Diagnoses Not on filedocumented in this encounter Care Teams Supervisor Of Instruction Relationship Specialty Start Date End Date Janak Greer MD [address] PCP - General 12/18/18 documented as of this encounter
--- OUTSIDE RECORDS SUMMARY | 2024-06-11 07:30 | XMS_ITS | Clinical Summary ---
Author Organization [facility] Address [address] [place] [address] Care Team Providers Care Medical Reception Specialist Name Role Phone Janak Greer MD Primary Care Provider [phone] Allergies No known active allergies Medications No [...] to complete this topic Insurance Care Teams Medical Reception Specialist Relationship Specialty Start Date End Date Janak Greer MD [address] [place] [address] PCP - General Internal Medicine 08/09/22
--- OUTSIDE RECORDS SUMMARY | 2024-06-11 07:30 | XMS_ITS | Data Portability ---
Author Organization [place] [facility], Allergy Address [address] [address] Care Team Providers Care Document Control Manager Name Role Phone LELAANUSHA Primary Care Provider [...] in 1-2 weeks as scheduled for reevaluation. [email or web address] Not available 08/10/2023 16:45:14 09/28/2023 09/28/2023 Patient [...] left maxillary FESS on 08/08/[address] oMntano. She contracted Covid-19 eight weeks ago. She [...] sinuses, w/o contrast 2023 [facility], [address] [place], [address], 4 14:09:46 Medication Orders doxycyclin e hyclate 100 mg capsule 2023 [id number], [phone] [place], [address], 4 11:38:28 fluticason e propionate 50 mcg/actuat ion nasal spray,susp ension 2023 024 [facility]acy #[id number], [phone] [place], [address], 4 12:08:06 Patient TargetsNo targets recorded. Patient [...] No observ ation record ed. [email or web address] [facility] [address], [address], 07/24/2023 12:41:01 07/26/19 24 audio gram No observ ation record ed. [facility] Not Available 2023 12:46:02 08/08/19 24 07/24/2023 CT, sinus es, w/o contr ast No observ ation record ed. [facility] [address], [address], 08/08/2023 22:58:50 Result Notes None recorded. Problems Name Problem SNOMED Code Status Onset Date Resolution Date Notes Provider Name and Address Organization Details Recorded Time Benign paroxysma l positiona l vertigo 657902011 Active 2020 Benign paroxysma l vertigo, unspecifi ed ear; Note: Date Diagnosed : 04/14/2020 10:02 AM (H81.10) Not Available [facility] 4 02:26:19 Otorrhagi a of right ear 61013856469 29889 Active 2022 Otorrhagi a, right ear; Note: Date Diagnosed : 06/14/2022 2:51 PM (H92.21) Not Available [facility] 4 02:26:40 Disturban ce of salivary secretion 74728670 Active 2021 Xerostomi a; Note: Date Diagnosed : 09/30/2021 11:57 AM (K11.7) Not Available [facility] 4 02:26:26 Bilateral temporoma ndibular joint pain 16054978297 696858 Active 2022 Arthralgi a of bilateral temporoma ndibular joint; Note: Date Diagnosed : 05/10/2022 2:35 PM (M26.623) Arthral justin of bilateral temporoma ndibular joint; Note: Date Diagnosed : 04/14/2020 10:02 AM (M26.623) ; Start Date : Not Available [facility] 4 02:26:33 Gastroeso phageal reflux disease without esophagit is 076548256 Active 2021 Gastro-es ophageal reflux disease without esophagit is; Note: Date Diagnosed : 04/15/2021 10:11 AM (K21.9) Not Available [facility] 4 02:26:18 Sensorine ural hearing loss of bilateral ears 803174755 Active 2020 Sensorine ural hearing loss, bilateral ; Note: Date Diagnosed : 04/14/2020 10:03 AM (H90.3) Not Available [facility] 4 02:26:31 Allergic rhinitis caused by pollen 59172934 Active 2021 Allergic rhinitis due to pollen; Note: Date Diagnosed : 09/30/2021 11:57 AM (J30.1) Not Available [facility] 4 02:26:46 Bleeding from nose 464331878 Active 2022 Epistaxis ; Note: Date Diagnosed : 05/10/2022 2:35 PM (R04.0) Not Available [facility] 4 02:26:44 Chronic sinusitis 14666382 Active 2023 ELENITA KANG MD [address] [place] [address], [place], [address] , [facility] - [facility] 4 21:08:07 Deviated nasal septum 899912347 Active 2023 ELENITA KANG MD [address] [facility] [place], [place], [address] , [place] - [facility] 4 21:08:13 Abnormal auditory perceptio n 02151337 Active 2023 ELENITA KANG MD [address] [facility] [place] [address], [place], [address] , [place] [facility] 4 12:02:38 Chronic left maxillary sinusitis 20887159548 988260 Active 2023 ELENITA KANG MD [address] [facility],[place] [address], [place], [address] , [place] [facility] 4 14:04:57 Obstructi ve sleep apnea syndrome 87624356 Active 2023 ELENITA KANG MD [address] [facility],[place] [address], [place], [address] , [place] [facility] 4 14:22:09 Chronic maxillary sinusitis 94918572 Active 2023 Chronic maxillary sinusitis ; Note: Date Diagnosed : 06/12/2023 11:15 AM (J32.0) Not Available [facility] 4 02:26:21 Acute maxillary sinusitis 92818486 Active 2023 Acute maxillary sinusitis , unspecifi ed; Note: Date Diagnosed : 04/25/2023 11:27 AM (J01.00) Not Available [facility] 4 02:26:24 Problem Notes None recorded. Procedures Surgical History Date Name Laterality Status Provider Name and Address Organization Details Recorded Time 01/08/20 24 NasalEndoscopy_DP completed MARVIN CHEUNG PA-C [address] [facility],[place] [address], [place], [address], [facility] 01/08/2024 12:45:15 09/28/19 24 JMSNasal/Sinus Endoscopy-PRIOR surgical cavities completed ELENITA MONTANO MD [address] [facility] [place] [address], [place], [address], [place] [facility] [place] 09/28/2023 12:07:20 08/25/19 24 JMSNasal/Sinus Endoscopy-DEBRIDE MENT completed ELENITA MONTANO MD [address], [address], [facility] - [facility] [place] 08/25/2023 14:20:40 08/10/19 24 JMSNasal/Sinus Endoscopy-DEBRIDE MENT completed RAMYA BHATTI PA-C [address], [address], [facility] - [facility] [place] 08/10/2023 16:43:40 08/08/19 24 ENDOSCOPY, NASAL/SINUS W/ PARTIAL ETHMOIDECTOMY (SURG) completed Nacho Aldana [place] - [facility] 08/11/2023 13:52:45 07/24/19 24 JMSNasal/Sinus Endoscopy completed ELENITA MONTANO MD [address] [place] [address], [address], [facility] - [facility] 07/24/2023 12:01:33 07/24/19 24 SRT & Tymps (20625 & 65087) completed Leah Donaldson [place] - [facility] 07/24/2023 12:28:03 Imaging Results Imaging Date Name Status LastModified by Organiz ation Details LastModified Time 07/24/2023 CT, sinuses, w/o contrast completed [facility] [address], [address], 07/24/2023 12:41:01 07/26/2023 audiogram completed [facility] Information no t available 07/26/2023 12:46:02 07/24/2023 CT, sinuses, w/o contrast completed [facility] [address], [address], 08/08/2023 22:58:50 Procedure Notes None recorded. Medical [...] mg tablet 09/30 completed Medicati on ID: [id number] B rand Name: furosemi de Send Method: E-Prescr ibed Sub s Allowed: subs OK Medic ationGen ericName : furosemi de Not Available Not Available Not Available Miralax 17 gram/dose oral powder 09/30 completed Medicati on ID: [id number] B rand Name: Miralax Send Method: E-Prescr [...] pack Take 06/11 completed Medicati on ID: [id number] P rescribe d By Name: Joleen Cruz MD Brand Name: Medrol (Jeff) Se nd Method: E-Prescr ibed Sub s Allowed: subs OK Rauli al Instruct ion: take as instruct ed Medic ationGen ericName : Medrol (Jeff) Not Available Not Available Not Available prednison e 20 mg tablet by mouth 2023 active Medicati on ID: [id number] B rand Name: predniso ne Send Method: [...] tended release 09/30 completed Medicati on ID: 400489 B rand Name: Tylenol Arthriti s Pain [...] mg tablet 09/30 completed Medicati on ID: 306731 B rand Name: oxcarbaz epine Se nd Method: E-Prescr ibed Sub s Allowed: subs OK Medic ationGen ericName : oxcarbaz epine Not Available Not Available Not Available acetamino phen 300 mg-codein e 30 mg tablet active Medicati on ID: 683772 B rand Name: acetamin ophen-co deine Se [...] mcg tablet 09/30 completed Medicati on ID: 826863 B rand Name: levothyr oxine Se nd Method: E-Prescr ibed Sub s Allowed: subs OK Medic ationGen ericName : levothyr oxine Not Available Not Available Not Available hydrocort isone 2.5 % topical cream with perineal applicato r 06/11 completed Medicati on ID: 129797 B rand Name: hydrocor tisone S end [...] 100 mg tablet active Medicati on ID: 188175 B rand Name: trazodon e Send Method: E-Prescr ibed Sub s Allowed: subs OK Medic ationGen ericName : trazodon e Medica tion ID: [id number] B rand Name: trazodon e Send Method: E-Prescr ibed Sub s Allowed: subs OK Medic ationGen ericName : trazodon e Not Available Not Available Not Available benzonata te 100 mg capsule TAKE 1 CAPSULE BY MOUTH THREE TIMES A DAY FOR 3 DAYS active Not Available Not Available No t Available levothyro xine 50 mcg tablet active Medicati on ID: 048955 B rand Name: levothyr oxine Se nd Method: E-Prescr ibed Sub s Allowed: subs OK Medic ationGen ericName : levothyr oxine Not Available Not Available Not Available cephalexi n 500 mg capsule TAKE 1 CAPSULE BY MOUTH FOUR TIMES A DAY active Not Available Not Available No t Available tacrolimu s 0.1 % topical ointment 06/11 completed Medicati on ID: 127971 B rand Name: tacrolim us Send Method: [...] mg tablet 06/11 completed Medicati on ID: 967820 B rand Name: hydroxyz ine HCl Send [...] nasal spray 09/30 completed Medicati on ID: 291043 B rand Name: azelasti ne Send Method: [...] unit) tablet 09/30 completed Medicati on ID: 462615 B rand Name: Vitamin D3 Send Method: E-Prescr ibed Sub s Allowed: subs OK Medic [facility] ericName : Vitamin D3 Not Available Not [...] as directed 2022 active Medicati on ID: 643800 D uration Value: 14 Brand Name: Ciprodex Send Method: E-Prescr ibed Sub s Allowed: subs OK [facility] C[facility]dex Not Available Not Available Not Available escitalop brittany 5 mg tablet TAKE 1 TABLET BY MOUTH ONCE DAILY. TAKE TOGETHER WITH 20 MG FOR TOTAL OF 25 MG PER DAY active Not Available Not Available No t Available Cinnamon 500 mg capsule 09/30 completed Medicati on ID: [id number] B rand Name: Cinnamon Send Method: E-Prescr ibed Sub s Allowed: subs OK [facility] : Cinnamon Not Available Not [...] mcg tablet 09/30 completed Medicati on ID: 491780 B rand Name: Centrum Silver Women Se [...] ous pen injector active Medicati on ID: 671547 B rand Name: Иван Send Method: E-Prescr [...] Updated DateTime 08/10/2023 162.56 cm 43.9 kg/m2 871918.65 g Deborah Godfrey [place] - [facility] 08/10/2023 15:56:40 Date Recorded Body height Provider Name an d Address Organization Details Last Updated DateTime 08/25/2023 162.56 cm Jacob Bishop [place] - [facility] 08/25/2023 14:03:50 Date Recorded Body height Body mass index (BMI) Body weight Provider Name and Address Organization Details Last Updated DateTime 09/28/2023 162.56 cm 43.4 kg/m2 630923.87 g Jacob Bishop [place] - [facility] 09/28/2023 11:59:23 Date Recorded Body height Body mass index (BMI) Body weight Provider Name and Address Organization Details Last Updated DateTime 07/24/2023 162.56 cm 43.9 kg/m2 167102.65 g Jacob Bishop [place] [facility] 07/24/2023 11:37:39 Social History None recorded. Functional Status None recorded. Mental Status None recorded. Family History Nothing Reported. Medical History Condition Response Diabetes Y Anxiety Y Thyroid Problems Y Depression Y Sleep Disorder Y High Cholesterol Y GERD/Reflux Y Hypertension Y Gynecological HistoryNo gynecological history recorded. Obstetrics History GPAL:G 0 P 0 0 0 0 Past Encounters Encounter ID Performer Location Encounter Start Date Encounter Closed Date Diagnosis/Indication Diagnosis SNOMED-CT Code Diagnosis ICD10 Code Diagnosis Note [id number] ELENITA KANG MD [facility] [address] [address] 07/24/2023 10:58:36 07/24/2023 13:19:59 Chronic sinusitis 43184428 J32.9 J32.8 Because of increased symptoms on [...] handout was given Deviated nasal septum 12 8278083 J34.2 Abnormal a uditory perception 62839350 H93.293 Tymp and SRT reviewedA speech awareness threshold test, tympanomet ry, and distortion product otoacousti c emission test were performed. Results are as follows: Speech Awareness/ Pad Machine Operator Test: Right Ear:{{with in normal limits 0 [...] seal}} [id number] MIKE MONTOYA MD [facility] [address] [address] 08/10/2023 15:42:46 08/10/2023 16:16:37 Chronic sinusitis 35922060 J32.8 Postoperative visit 1836 39050 Z48.89 [id number] ELENITA KANG MD [facility] 100 [place] [address] 08/25/2023 13:59:35 08/25/2023 14:34:07 Chronic left maxillary sinusitis 5600005019 1749241 J32.0 No residual infection. Debridemen t performed. Suggest gentle irrigation to avoid ear symptoms. Burning mouth has improved. She can take some probiotics . Follow-up 4 weeks. Abnormal a uditory perception 32361637 H93.293 No fluid Obstructiv e sleep apnea syndrome 77272409 G47.33 Resume CPAP [id number] ELENITA KANG MD [facility] [address] [place] [address] 09/28/2023 11:30:17 09/28/2023 12:14:30 Chronic left maxillary sinusitis 0601170642 8319295 J32.0 No residual infection. Debridemen t performed. Suggest gentle irrigation to avoid ear symptoms. Burning mouth has improved. She can take some probiotics . Follow-up 4 weeks. Deviated nasal septum 12 8937580 J34.2 [id number] GARRY LINK MD [facility] 100 [place] [address] 01/08/2024 10:59:57 01/08/2024 11:42:28 Deviated nasal septum 767998726 J34.2 right Chronic le ft maxillary sinusitis 1058081162 3330941 J32.0 Health Concerns Section Related Observation LastModified by Organization Detai ls LastModified Time None Recorded Concern Status LastModified by Organization Details LastModified Time None Recorded Advance Directives Directive None Recorded Payers Encounter Date Sequence Insurance Name Policy Number Policy Azul Covered Member ID Azul Member ID Guarantor Name 07/24/2023 2 [place] [facility] Esperanza Mónica Dianne [id number] Esperanza M Dianne 07/24/2023 1 [place] [address] [employer] Dianne [id number] Esperanza M Dianne 08/10/2023 2 [place] [facility] Esperanza M Dianne [id number] Esperanza M Dianne 08/10/2023 1 [place] [address] Esperanza M M Dianne [id number] Esperanza M Dinane 08/25/2023 2 [place] [facility] Esperanza Mónica Dianne [id number] Esperanza M Dianne 08/25/2023 1 [place] [address] Esperanza Mónica M Dianne [id number] Esperanza M Dianne 09/28/2023 2 [place] [facility] Esperanza M Dianne [id number] Esperanza M Dianne 09/28/2023 1 [place] [address] Esperanza Sales M Dianne [id number] Esperanza M Dianne 01/08/2024 2 [place] [facility] Esperanza M Dianne [id number] Esperanza M Dianne 01/08/2024 1 [place] [address] Esperanza Sales M Dianne [id number] Esperanza M Dianne Notes Date Note Type Note Provider Name and Address Organization Details Recorded Time 07/24/2023 text/html No change with prednisone or abx. Still has facial pressure and ear fullness L > R prior -[id number] with chronic left maxillary sinusitis. Symptoms started [...] endoscopic sinus surgery. ELENITA MONTANO MD 100 [facility],[address], [address], [facility] - [facility] 07/24/2023 12:45:01 08/10/2023 text/html 62-year-old fema le presents status post left maxillary antrostomy with sigifredo bullosa resection on 08/08/[address] Montano. She is doing well postoperatively. Currently on amoxicillin. MIKE MONTOYA MD [address] [facility],[address], [address], [facility] - [facility] 08/10/2023 17:13:02 08/25/2023 text/html Patient seen following endoscopic surgery she is August 07. She still has some left facial pressure, ear fullness and nasal discharge. No HL. Smell and taste ok. Been irrigating twice daily and using saline solution 3-4 times per day. Finished abx but got burning. No thrush. Holding CPAP ELENITA MONTANO MD 100 [facility], [place], [address], [facility] - [facility] 08/25/2023 14:22:37 09/28/2023 text/html Patient with chronic sinusitis status post left-sided surgery. She has a known rightward septal deviation and had mild sinus thickening on that side. We elected to proceed with left-sided surgery only. She notes significant improvement and just a little bit of congestion in the morning. ELENITA MONTANO MD [address] [facility],[place] [address], [place], [address], [place] - [facility] 09/28/2023 12:08:38 01/08/2024 text/html 63 year [...] offer some relief. GARRY LINK MD 100 [facility], [place], [address], [place] [facility] 01/08/2024 21:13:08 OBGyn Episode No OBEpisode recorded.
[2024-07-12 12:05] VITALS: BMI 40.7
--- NOTE | 2024-07-15 10:38 | HO.ANESPROP2 ---
Documented by User: Blanca Lemus NP 07/15/24 14:50 HPI - Anesthesia Eval Consult details Narrative: 63yo F for Upper Endoscopy Eliquis for DVT/ PE Anesthesia Pre-Procedure Meds Is the patient on any of the following meds?: GLP1/DPP4 PMFSH Active Problems Active Problems: All Active Problems Anemia (Chronic) Greater trochanteric bursitis of left hip (Acute) Hypothyroid (Acute) Insomnia (Acute) Stress incontinence (Acute) Insulin dependent type 2 diabetes mellitus (Acute) Anxiety (Acute) Bipolar 1 disorder (Acute) Sleep apnea (Acute) Asthma (Acute) Chronic renal insufficiency (Acute) GERD (gastroesophageal reflux disease) (Acute) Morbid obesity (Acute) Extensor carpi ulnaris tendinitis (Acute) Status post total right knee replacement (Acute) Right knee pain (Acute) Past Medical History Medical History Insomnia Stress incontinence History of venous thromboembolism Insulin dependent type 2 diabetes mellitus Anxiety Bipolar 1 disorder Arthritis of right knee Fatty liver Asthma Hypothyroid DVT (deep venous thrombosis) Fibromyalgia HTN (hypertension) Chronic renal insufficiency Type 2 diabetes mellitus Bipolar disorder Depression Morbid obesity Chronic pulmonary embolism Sleep apnea GERD (gastroesophageal reflux disease) Elevated cholesterol Family History Family History Father Diabetes Heart failure HTN (hypertension) Maternal Aunt Diabetes Paternal Grandmother Diabetes Mother HTN (hypertension) Maternal Grandfather Lung cancer Paternal Grandfather Lung cancer Paternal Aunt Breast cancer Family/Other Prostate CA Paternal Uncle Heart disease Family history of problems with anesthesia: No (Aunt is difficult intubation) Surgical History Surgical History History of right knee joint replacement History of esophagogastroduodenoscopy (EGD) H/O colonoscopy Hx of inguinal hernia repair Hx of sinus surgery Hx of shoulder surgery Hx of umbilical hernia repair Hx of arthroscopy of right knee History of bladder suspension procedure Hx of tonsillectomy H/O: hysterectomy History of ankle surgery History of Problems with Anesthesia: No Social History Social History Household Members: Family Household Members Other:: takes care of parents Housing: House Are you a primary healthcare market consultant to a significant other at home: No Do you presently have visiting nurse or other home services: No Patient Tobacco Use Status: Former Tobacco user Tobacco use type: Cigarette Years Smoked: 30 Second Hand Smoke Exposure: No Use of substances other than those prescribed or required for medical reasons: No Have you been hit, kicked, punched, or otherwise hurt by someone within the past year? 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: [employer] Allergies Allergy/AdvReac Type Severity Reaction Status Date / Time No Known Allergies Allergy Verified 06/12/24 11:02 Home Medications ?Medication ?Instructions ?Recorded ?Confirmed ?Last Taken ?Type albuterol sulfate 90 mcg/actuation 1 inh inhalation Q4H PRN Shortness 08/01/23 07/16/24 Unknown History aerosol inhaler (Ventolin HFA) Of Breath Or Wheezing apixaban 5 mg tablet (Eliquis) 5 mg PO BID 08/01/23 07/16/24 07/12/24 History atorvastatin 80 mg tablet 80 mg PO BEDTIME 08/01/23 07/16/24 10/29/23 History carvedilol 3.125 mg tablet 3.125 mg PO BID 08/01/23 07/16/24 10/30/23 History famotidine 20 mg tablet 20 mg PO BID 08/01/23 07/16/24 10/29/23 History mirabegron 50 mg tablet,extended 50 mg PO DAILY 08/01/23 07/16/24 10/29/23 History release 24 hr (Myrbetriq) omeprazole 20 mg capsule,delayed 20 mg PO DAILY@0608/01/23 07/16/24 10/30/23 History release oxcarbazepine 600 mg tablet 600 mg PO BID 08/01/23 07/16/24 10/29/23 History levothyroxine 25 mcg tablet 25 mcg PO DAILY@0610/19/23 07/16/24 10/30/23 History carvedilol 6.25 mg tablet 6.25 mg PO BID 10/20/23 07/16/24 10/30/23 History fluticasone 250 mcg-salmeterol 50 1 ea inhalation BID 0907/16/24 10/30/23 History mcg/dose blistr powdr for inhalation (Darvin Inhub) fluticasone propionate 50 1 spray intranasal DAILY 10/30/23 07/16/24 Unknown History mcg/actuation nasal spray,suspension trazodone 150 mg tablet 150 mg PO BEDTIME Insomnia 10/30/23 07/16/24 Unknown History aripiprazole 5 mg tablet 5 mg PO DAILY 01/18/24 07/16/24 Unknown History escitalopram oxalate 20 mg tablet 25 mg PO DAILY 01/18/24 07/16/24 Unknown History clonazepam 0.5 mg tablet 0.5 mg PO DAILY 05/16/24 07/16/24 Unknown History escitalopram oxalate 5 mg tablet 5 mg PO DAILY 05/16/24 07/16/24 Unknown History tirzepatide 12.5 mg/0.5 mL 12.5 mg subcut DAILY 05/16/24 07/16/24 07/09/24 History subcutaneous pen injector (Иван) insulin lispro 200 unit/mL (3 mL) 20 unit subcut TID 05/27/24 07/16/24 Unknown History subcutaneous pen (Humalog KwikPen U-200 Insulin) Exam Height,Weight and Vital Signs: Height 5 ft 4 in Weight 107.501 kg Assessment and Plan Assessment Anesthesia Assessment: Chart Reviewed Final Anesthetic Review Family History of Problems with Anesthesia: No (Aunt is difficult intubation) History of Problems with Anesthesia: No Documented by User: Marychuy Oglesby MD 07/16/24 13:00 [facility] Past Medical History Medical History Insomnia Stress incontinence History of venous thromboembolism Insulin dependent type 2 diabetes mellitus Anxiety Bipolar 1 disorder Arthritis of right knee Fatty liver Asthma Hypothyroid DVT (deep venous thrombosis) Fibromyalgia HTN (hypertension) Chronic renal insufficiency Type 2 diabetes mellitus Bipolar disorder Depression Morbid obesity Chronic pulmonary embolism Sleep apnea GERD (gastroesophageal reflux disease) Elevated cholesterol Family History Family History Father Diabetes Heart failure HTN (hypertension) Maternal Aunt Diabetes Paternal Grandmother Diabetes Mother HTN (hypertension) Maternal Grandfather Lung cancer Paternal Grandfather Lung cancer Paternal Aunt Breast cancer Family/Other Prostate CA Paternal Uncle Heart disease Surgical History Surgical History History of right knee joint replacement History of esophagogastroduodenoscopy (EGD) H/O colonoscopy Hx of inguinal hernia repair Hx of sinus surgery Hx of shoulder surgery Hx of umbilical hernia repair Hx of arthroscopy of right knee History of bladder suspension procedure Hx of tonsillectomy H/O: hysterectomy History of ankle surgery Social History Social History Household Members: Family Household Members Other:: takes care of parents Housing: House Are you a primary healthcare market consultant to a significant other at home: No Do you presently have visiting nurse or other home services: No Patient Tobacco Use Status: Former Tobacco user Tobacco use type: Cigarette Years Smoked: 30 Second Hand Smoke Exposure: No Use of substances other than those prescribed or required for medical reasons: No Have you been hit, kicked, punched, or otherwise hurt by someone within the past year? If so, by whom?: No Are you DNR?: No Advance Directives: No Advance Directives Information Provided: Yes Advance Directives on File: No Patient : No : No Poor oral hygiene: No service: No Current occupational status: retired [employer] Allergies Allergy/AdvReac Type Severity Reaction Status Date / Time No Known Allergies Allergy Verified 06/12/24 11:02 Home Medications ?Medication ?Instructions ?Recorded ?Confirmed ?Last Taken ?Type albuterol sulfate 90 mcg/actuation 1 inh inhalation Q4H PRN Shortness 08/01/23 07/16/24 Unknown History aerosol inhaler (Ventolin HFA) Of Breath Or Wheezing apixaban 5 mg tablet (Eliquis) 5 mg PO BID 08/01/23 07/16/24 07/12/24 History atorvastatin 80 mg tablet 80 mg PO BEDTIME 08/01/23 07/16/24 10/29/23 History carvedilol 3.125 mg tablet 3.125 mg PO BID 08/01/23 07/16/24 10/30/23 History famotidine 20 mg tablet 20 mg PO BID 08/01/23 07/16/24 10/29/23 History mirabegron 50 mg tablet,extended 50 mg PO DAILY 08/01/23 07/16/24 10/29/23 History release 24 hr (Myrbetriq) omeprazole 20 mg capsule,delayed 20 mg PO DAILY@0608/01/23 07/16/24 10/30/23 History release oxcarbazepine 600 mg tablet 600 mg PO BID 08/01/23 07/16/24 10/29/23 History levothyroxine 25 mcg tablet 25 mcg PO DAILY@59910/19/23 07/16/24 10/30/23 History carvedilol 6.25 mg tablet 6.25 mg PO BID 10/20/23 07/16/24 10/30/23 History fluticasone 250 mcg-salmeterol 50 1 ea inhalation BID 10/20/23 07/16/24 10/30/23 History mcg/dose blistr powdr for inhalation (Darvin Harrell) fluticasone propionate 50 1 spray intranasal DAILY 10/30/23 07/16/24 Unknown History mcg/actuation nasal spray,suspension trazodone 150 mg tablet 150 mg PO BEDTIME Insomnia 10/30/23 07/16/24 Unknown History aripiprazole 5 mg tablet 5 mg PO DAILY 01/18/24 07/16/24 Unknown History escitalopram oxalate 20 mg tablet 25 mg PO DAILY 01/18/24 07/16/24 Unknown History clonazepam 0.5 mg tablet 0.5 mg PO DAILY 05/16/24 07/16/24 Unknown History escitalopram oxalate 5 mg tablet 5 mg PO DAILY 05/16/24 07/16/24 Unknown History tirzepatide 12.5 mg/0.5 mL 12.5 mg subcut DAILY 05/16/24 07/16/24 07/09/24 History subcutaneous pen injector (Иван) insulin lispro 200 unit/mL (3 mL) 20 unit subcut TID 05/27/24 07/16/24 Unknown History subcutaneous pen (Humalog KwikPen U-200 Insulin) Exam Airway Mallampati Class: III TM Dist: >3cm Neck ROM: Full Loose/Missing/Broken Teeth: No Heart: RRR Lungs: CTA Assessment and Plan Assessment Anesthesia Assessment: Anesthesia Plan Discussed Final Anesthetic Review NPO: Yes ASA Class: III Final Preanesthetic Review: Meds/Allgs Chart Reviewed, Consent Obtained/Reviewed and Anes Risks/Benef Reviewed Patient Risk: Intermediate Procedure Risk: Intermediate Anesthetic Plan Anesthetic Plan: MAC: Disposition: Standard PACU
[2024-07-16 11:28] VITALS: BMI 37.6
[2024-07-16 11:40] VITALS: BP 145/50; PULSE 63; RESP 16; TEMP 36.2; O2SAT 95
[2024-07-16] MEDS: Dextrose 5 % and 0.45 % NaCl 1,000 ML 80 ML IVCONT (11:46)
--- NOTE | 2024-07-16 12:45 | MHC.SHP ---
Pre-Procedural Eval Section A - 24 Hr Update-Section A only Date of Service: 07/16/24 The patient has been examined within 24 hours of the surgical procedure. The History & Physical has been completed within 30 days and I have reviewed it.: Yes Section B - Complete if H&P > 30 days Chief Complaint: Morbid (severe) obesity due to excess calories Details of Present Illness: GERD Relevant Family History (Specify if Yes): No Relevant Social History: None Present Medications: None Medical History: No relevant PMH History of Previous Operations: No relevant previous surgery Allergies: Allergies Allergy/AdvReac Type Severity Reaction Status Date / Time No Known Allergies Allergy Verified 06/12/24 11:02 Review of Systems Sugical H&P ROS: Negative: Constitution, Cardiovascular, Respiratory, Neurological, Psychiatric, Hem-Onc, Allergic/Immunologic, Gastrointestinal, Genitourinary, Musculoskeletal, Integumentary, Endocrine and Eyes/Ears/Nose/Throat Exam Surgical H&P Exam: Normal: HEENT, Normal: Heart, Normal: Lungs, Normal: Extremities, Normal: Abdomen, Normal: Skin and Normal: Neurological Plan Diagnosis/Plan: Unchanged (EGD to assess etiology of GERD. Risks of bleeding and perforation were discussed with the patient and she is in agreement with the plan.) I have reviewed the history and physical and performed a pertinent physical examination on my patient. No changes have occurred unless specified. Time Spent With Patient Time: Total time managing care of this patient today ____ minutes.
--- NOTE | 2024-07-16 12:48 | PM.OP ---
Brief Operative Note Date of Service: 07/16/24 Pre-op diagnosis: GERD Post-op diagnosis: same Procedure: PROCEDURE DATE: 07/16/2024 PREOPERATIVE DIAGNOSIS: GERD POSTOPERATIVE DIAGNOSIS: ?Same as above. 1) Normal endoscopy PROCEDURE: Odmiefja-rhxxno-fybrqpfhzgyl with biopsies Surgeon: ?Jerson Palm M.D.. Ph.D. Urban Redevelopment Specialist: None ? Anesthesia: IV sedation Estimated blood loss: ?Minimal FINDINGS AND PROCEDURE: ? OPERATIVE INDICATIONS: ?The patient is a 63 year old female known to me who is interested in bariatric surgery. The patient has severe GERD and is unable to discontinue PPIs for 2 weeks to perform the H pylori breath test. Based on this information I recommended an upper endoscopy to evaluate the patient's symptoms. Risks and complications of the surgery were discussed with the patient in advance particularly the possibility of perforation or bleeding that may require surgical intervention. The patient understood the risks and was in agreement with the plan. ? PROCEDURE: After informed consent was obtained by the patient, the patient was ?transferred to the Operating Room and was placed in the supine position.? After successful induction of IV sedation, a mouth block was inserted and the patient was placed in the left lateral decubitus position. An upper endoscopy was performed next, the oropharynx and esophagus appeared within the normal limits. There was no hiatal hernia. The z-line was smooth. Two biopsies were obtained from the distal esophagus 2-3 cm proximal to the GE junction and two additional biopsies from the GE junction. The stomach was entered and it appeared to be of normal size. There was no gastritis. There was no stricture or ulcer. A biopsy was obtained from the gastric fundus and thel antrum. No significant bleeding was noted from any of the biopsy sites. Retroflexion of the scope confirmed a normal GE junction. The scope was then advanced into the duodenum which appeared to be normal as well. At that point the duodenum ?and the stomach were decompressed and the scope was withdrawn from the patient's mouth. The patient extubated and was transferred in stable condition to the Recovery Room for further care. I was present and performed all steps of the procedure. There were no residents to assist with this case. Jerson Palm M.D., Ph.D. Surgeon: Gibran Palm MD Anesthesia: MAC Was an Urban Redevelopment Specialist used for this Procedure?: No Estimated blood loss (mL): 0 IV fluids (mL): 400 Urine output (mL): 0 (No Jha to record output) Pathology: other (1) antrum x1, 2) fundus x1, 3) GE junction x2, 4) distal esophagus x2) Condition: stable Disposition: PACU
[2024-07-16] MEDS: Lactated Ringers 1,000 ML 100 ML IVCONT (12:53)
[2024-07-16 13:21] VITALS: BP 131/64; PULSE 75; RESP 16; TEMP 36.9; O2SAT 96
[2024-07-16 13:36] VITALS: BP 138/61; PULSE 64; RESP 20; TEMP 36.9; O2SAT 97
== END 2024-07-16 14:20 | disposition home or self-care (01) ==
PROVIDERS: PCP Internal Medicine; Visit Provider Surgery
PROC: 0DJ08ZZ Inspection of Upper Intestinal Tract, Via Natural or Artificial Opening Endoscopic (ICD-10-PCS; CPT 43235; principal; 2024-07-16 14:20)
DX: E66.01 Morbid (severe) obesity due to excess calories (principal); Z68.41 Body mass index [BMI] 40.0-44.9, adult; K21.9 Gastro-esophageal reflux disease without esophagitis; I12.9 Hypertensive chronic kidney disease with stage 1 through stage 4 chronic kidney disease, or unspecified chronic kidney disease; E11.22 Type 2 diabetes mellitus with diabetic chronic kidney disease; N18.9 Chronic kidney disease, unspecified; E03.9 Hypothyroidism, unspecified; J45.909 Unspecified asthma, uncomplicated; I27.82 Chronic pulmonary embolism; Z86.718 Personal history of other venous thrombosis and embolism; K76.0 Fatty (change of) liver, not elsewhere classified; E78.00 Pure hypercholesterolemia, unspecified; M79.7 Fibromyalgia; G47.33 Obstructive sleep apnea (adult) (pediatric); F31.9 Bipolar disorder, unspecified; Z79.4 Long term (current) use of insulin; Z79.85 Long-term (current) use of injectable non-insulin antidiabetic drugs; Z79.01 Long term (current) use of anticoagulants; Z79.51 Long term (current) use of inhaled steroids; Z79.899 Other long term (current) drug therapy; Z87.891 Personal history of nicotine dependence; Z98.890 Other specified postprocedural states
CPT/HCPCS: 43239; 88305; 88342; J2704

== ENCOUNTER → 2024-07-16 11:12 | Outpatient (BNV) | payer MEDICARE, MEDICAID, SELFPAY | PROVIDERS: PCP Internal Medicine; Visit Provider Surgery | DX: K21.9 Gastro-esophageal reflux disease without esophagitis (principal) | CPT/HCPCS: 43239 ==

== ENCOUNTER 2024-08-02 08:11 | Outpatient (AMB) | payer MEDICARE, MEDICAID, SELFPAY ==
--- OUTSIDE RECORDS SUMMARY | 2024-08-02 08:14 | XMS_ITS | Encounter Summary ---
Author Organization [facility] Address [address] [place] [address] Care Team Providers Care Wedding Decorator Name Role Phone Janak Greer MD Primary Care Provider [phone] Encounter Details Date Type Department Care Team (Late st Contact Info) Description 06/06/2023 Scanned Document [address] [phone] Provider, Generic Social History Tobacco Use Types [...] on filedocumented in this encounter Care Teams Wedding Decorator Relationship Specialty Start Date End Date Janak Greer MD [address] [place] [address] PCP - General Internal Medicine 08/09/22 documented as of this encounter
--- NOTE | 2024-08-02 08:33 | MHC.OFFVISWM ---
VS Expanded 08/02/24 08:47 Height 5 ft 4 in Weight 217 lb 4 oz BMI 37.3 Body Fat % 44.5 Body Fat Mass 96.7 Fat Free Mass 120.6 Visceral Fat Rating 19 Body Water % 38.1 Body Water Mass 82.8 Basal Metabolic Rate/Score 1,551 Intake Visit Reasons: TV Pre Op LSG 08/13/24 Allergies No Known Allergies Allergy (Verified 08/02/24 08:33) Medication List - Last Reconciled 08/02/24 by Gibran Palm MD acetaminophen 650 mg (2 x 325 mg) PO Q6H PRN 30 days albuterol sulfate 90 mcg/actuation (Ventolin HFA) 1 inh inhalation Q4H PRN apixaban (Eliquis) 5 mg PO BID aripiprazole 5 mg PO DAILY atorvastatin 80 mg PO BEDTIME carvedilol 6.25 mg PO BID carvedilol 3.125 mg PO BID clonazepam 0.5 mg PO DAILY escitalopram oxalate 25 mg PO DAILY escitalopram oxalate 5 mg PO DAILY famotidine 20 mg PO BID fluticasone propion-salmeterol 250-50 mcg/dose (Wixela Inhub) 1 ea inhalation BID fluticasone propionate 50 mcg/actuation 1 spray intranasal DAILY fondaparinux 2.5 mg (0.5 mL) subcut Q24H insulin lispro (Humalog KwikPen U-200 Insulin) 20 units subcut TID levothyroxine 25 mcg PO DAILY@0600 mirabegron ER (Myrbetriq) 50 mg PO DAILY omeprazole 20 mg PO DAILY@0630 ondansetron 4 mg PO Q12H oxcarbazepine 600 mg PO BID pantoprazole 40 mg PO DAILY polyethylene glycol 3350 17 grams PO DAILY sucralfate 10 mL PO BID tirzepatide (Mounjaro) 12.5 mg subcut DAILY trazodone 150 mg PO BEDTIME walker Folding front wheeled walker HPI HPI TV Pre Op LSG 08/13/24: Details: Start time: 8.16am, End time: 9.01am ?I spent 40 minutes speaking with the patient on the phone plus an additional 5 minutes reviewing and updating records for a total of 45 minutes HPI Comments Details: Overall weight loss: 20.7lbs, or 8.72% TBWL Is doing 2 Premier protein shakes (1/2 scoop in almond milk), 1.5 Fit Crunch protein bars and one meal (7 forks each) Exercise: bike for 300 calories per day, daily [facility] Medical History (Updated 08/02/24 @ 08:51 by Gibran Palm MD) Insomnia Stress incontinence History of venous thromboembolism Insulin dependent type 2 diabetes mellitus Anxiety Bipolar 1 disorder Arthritis of right knee Fatty liver Asthma Hypothyroid DVT (deep venous thrombosis) Fibromyalgia HTN (hypertension) Chronic renal insufficiency Type 2 diabetes mellitus Bipolar disorder Depression Morbid obesity Chronic pulmonary embolism Sleep apnea GERD (gastroesophageal reflux disease) Elevated cholesterol Surgical History History of right knee joint replacement History of esophagogastroduodenoscopy (EGD) H/O colonoscopy Hx of inguinal hernia repair Hx of sinus surgery Hx of shoulder surgery Hx of umbilical hernia repair Hx of arthroscopy of right knee History of bladder suspension procedure Hx of tonsillectomy H/O: hysterectomy History of ankle surgery Family History Father Diabetes Heart failure HTN (hypertension) Maternal Aunt Diabetes Paternal Grandmother Diabetes Mother HTN (hypertension) Maternal Grandfather Lung cancer Paternal Grandfather Lung cancer Paternal Aunt Breast cancer Family/Other Prostate CA Paternal Uncle Heart disease Social History Household Members: Family Household Members Other:: takes care of parents Housing: House Are you a primary rn managed care to a significant other at home: No Do you presently have visiting nurse or other home services: No Patient Tobacco Use Status: Former Tobacco user Tobacco use type: Cigarette Years Smoked: 30 Second Hand Smoke Exposure: No service: No Current occupational status: retired Telehealth Telehealth Telehealth Platform: Telephone Location of provider rendering services: practice address Location of patient: address on file Patient Identification confirmed using: Name, : Yes Telehealth method: voice only Patient verbally consented to treatment: Yes Patient verbally consented to billing insurance company: Yes Patient informed of any privacy concerns related to visit: Yes Minutes spent on Phone/Video with Pt.: 45 Assessment & Plan Assessment & Plan (1) Obesity: Code(s): E66.9 - Obesity, unspecified Category: Medical Qualifiers: Obesity type: due to excess calories Obesity classification: adult class 2 (BMI 35 - 39.9) Serious obesity comorbidity presence: with serious comorbidity Body mass index: BMI 37.0-37.9 Qualified Code(s): E66.812 - Obesity, class 2; E66.01 - Morbid (severe) obesity due to excess calories; Z68.37 - Body mass index [BMI] 37.0-37.9, adult Plan: 1. Plan for lap sleeve gastrectomy including upper GI endoscopy. All tests has been completed and reviewed and the patient is cleared for the surgery. ?If diaphragmatic or ventral hernias are present at time of surgery, these will be repaired laparoscopically as well. Risks and complications were discussed in detail including possible conversion to an open procedure, anastomotic leak, bleeding requiring transfusion, small bowel obstruction, , DVT and pulmonary embolism, cardiac, or pulmonary complications, as longterm complications such as anastomotic ulcer, insufficient weight loss and vitamin deficiencies. I emphasized the importance of close follow-up, adherence to instructions and good communication. So far she has proven to be an excellent communicator and very compliant with all our directions accomplishing a great weight loss. I believe that she is an excellent candidate and she is ready. 2. Preop prescriptions were provided and explained the purpose of each one. Need to be purchased preop. Pantoprazole and Sucralfate are for after surgery. Zofran is as needed for nausea before, or after surgery. 3. Bowel prep: please do 7 packets ?of Miralax mixing each one with a an 8oz glass of water, crystal light, gatorade zero, or propel ?on 08/11/24 and the same amount on 08/12/24. The Miralax you begin with one packet at a time in 8oz water or crystal light, gatorade zero, or propel ?as early in the day as you can and you do them back to back until you finish them. Continue the protein shakes during ?the bowel prep. 4. Needs to purchase 1oz medicine cups . 5. Needs to purchase Children's liquid Tylenol for postop pain control. 6. She needs to stop the Mounjaro on 08/06/24 (last injection that day). Avoid aspirin, motrin, Advil, Aleve, Meloxicam, Excedrin, Ibuprofen, Naproxyn. Tylenol is OK. 7. She needs to purchase the Celebrate multivitamins from the hospital's gift shop, chewable or pills whatever you prefer. 8. Will do basic preop blood work-up any day between Monday08/05/24 and Monday08/09/24 fasting for 12 hours and is scheduled to see the Anesthesiologist prior to the day of surgery. 9. Stop the Eliquis on 08/08/24 (last pill that day). Start the Fondaparinux (Arixtra) injections on 08/08/24 (same day) and take one injection per day, daily until 08/12/24 (last injection that day). 10. Importance of adherence to postop folllow-up and recommendations was underscored and she understands that. 11. Stop food and bars as of Monday08/05/24 and continue with 5 PREMIER protein shakes (ONE scoop EACH in 8oz almond milk) at 6am-8am, 9am-11am, 12pm-2pm, 3pm-5pm and 6pm-8pm 12. No soups, broths or V8 13. The patient's?medical?history has been reviewed and they are considered low risk for post op DVT and therefore DVT prophylaxis is not considered necessary. Travel after surgery was reviewed. The patient has not disclosed any travel plans during the first 30 days after surgery and they have been advised that within the first 30 days after surgery any bus, plane, train or car travel over 2 hours in duration is contraindicated due to the possibility of developing blood clots from immobility. Any travel, needs to include periods of ambulation of 10 minutes in duration every 2 hours.? Patient was instructed to discuss any plans for travel during this period with their bariatric surgeon.? 14. Use your CPAP daily and bring it to the hospital with your mask As of tomorrow, please check your blood pressure daily in the morning. If your blood pressure is: Below 120/70: do not take the Carvedilol 121/71 to 135/85: take ONE pill of Carvedilol 3.125mg AND ONE pill of Carvedilol 6.25mg Over 136/86: take ONE pill of Carvedilol 3.125mg AND ONE pill of Carvedilol 6.25mg, TWICE per day 15. Please take at the day of surgery the following medications: Only the Carvedilol if the blood pressure that morning is high enough to justify it 16. Stop any control pills and don't use them for one month after surgery 17. Absolutely no smoking or vaping, or marijuana until the surgery and for at least the first 4 weeks. Only nicotine patches are allowed. 18. Send me weight measurements on Monday08/04/24, Monday08/10/24 and then on Monday08/13/24, the day of surgery before you go to the hospital. 19. Avoid any steroids by mouth for any reason. Let me know if someone prescribes them to you 20. These instructions supersede anything else you read in the handbook, anything you watched in videos or classes or you were told by any other provider. If there is any conflict, you follow the above instructions and nothing else. Orders: Orders TSH reflex Free T4 Today E66.9 - Obesity, unspecified, Z68.37 - Body mass index [BMI] 37.0-37.9, adult Prothrombin Time INR Today E66.9 - Obesity, unspecified, Z68.37 - Body mass index [BMI] 37.0-37.9, adult Hemoglobin A1c Today E66.9 - Obesity, unspecified, Z68.37 - Body mass index [BMI] 37.0-37.9, adult Lipid Panel Today E66.9 - Obesity, unspecified, Z68.37 - Body mass index [BMI] 37.0-37.9, adult C Reactive Protein Today E66.9 - Obesity, unspecified, Z68.37 - Body mass index [BMI] 37.0-37.9, adult Type and Screen Today E66.9 - Obesity, unspecified, Z68.37 - Body mass index [BMI] 37.0-37.9, adult Partial Thromboplastin Time Today E66.9 - Obesity, unspecified, Z68.37 - Body mass index [BMI] 37.0-37.9, adult Comprehensive Met. Panel Today E66.9 - Obesity, unspecified, Z68.37 - Body mass index [BMI] 37.0-37.9, adult Complete Blood Count Auto Diff Today E66.9 - Obesity, unspecified, Z68.37 - Body mass index [BMI] 37.0-37.9, adult Insulin Today E66.9 - Obesity, unspecified, Z68.37 - Body mass index [BMI] 37.0-37.9, adult Medications: New sucralfate 10 mL PO BID 600 mL 2RF K21.9 - Gastro-esophageal reflux disease without esophagitis ondansetron Only take one every 12 hours as needed if you have nausea 4 mg PO Q12H 20 tabs 0RF nausea and vomiting R11.0 - Nausea pantoprazole 40 mg PO DAILY 90 tabs 0RF K21.9 - Gastro-esophageal reflux disease without esophagitis polyethylene glycol 3350 Mix each measuring cup with 8oz of water, Crystal light, or Gatorade zero, or Propel and do 7 measuring cups on 08/11/2024 and another 7 measuring cups on 08/12/2024 17 grams PO DAILY 238 grams 0RF Z01.818 - Encounter for other preprocedural examination fondaparinux 2.5 mg (0.5 mL) subcut Q24H 5 mL 0RF Z86.718 - Personal history of other venous thrombosis and embolism
[2024-08-02 08:47] VITALS: BMI 37.3
== END 2024-08-02 09:02 | disposition home or self-care (01) ==
LOC: HO.HBS 08:11
PROVIDERS: PCP Internal Medicine; Visit Provider Surgery
DX: E66.812 Obesity, class 2 (principal); E66.01 Morbid (severe) obesity due to excess calories; Z68.37 Body mass index [BMI] 37.0-37.9, adult
CPT/HCPCS: 99499

== ENCOUNTER → 2024-08-02 08:11 | Outpatient (BNVA) | payer MEDICARE, MEDICAID, SELFPAY | PROVIDERS: PCP Internal Medicine; Visit Provider Surgery ==

== ENCOUNTER 2024-08-05 09:18 | Outpatient (REF) | payer MEDICARE, MEDICAID, SELFPAY ==
--- NOTE | ~2024-08-05 | FL_ITS ---
EXAMINATION: XR FLUOROSCOPY UPPER GI SERIES CLINICAL INFORMATION: Morbid obesity due to excess calories. Preoperative evaluation. Patient states episodic GERD. COMPARISON: No prior for comparison. Patient underwent EGD 07/16/2024. TECHNIQUE: Fluoroscopic air contrast upper GI examination was performed utilizing standard techniques with thin and thick barium and effervescent granules. Numerous spot images were obtained. Several fluoroscopic image hold cine sequences were also obtained. FINDINGS: UPPER GI SERIES: Lateral cine images of the oropharynx and hypopharynx demonstrate normal swallow mechanism with normal epiglottic inversion and soft palate elevation. There was trace laryngeal penetration present on the first swallow. No glottic or subglottic aspiration was present. Hypopharyngeal structures appear normal without evidence of mass or diverticulum. There was no significant cricopharyngeal achalasia. Dual and single contrast images of the esophagus demonstrate normal caliber, contour, and mucosal pattern. No evidence of stricture, mass, or ulcerations identified. Esophageal peristalsis was mildly disordered. No evidence of hiatus hernia identified. Mild gastroesophageal reflux was noted during the course of the examination. Dual contrast and single contrast images of the stomach demonstrated normal contour and mucosal pattern without evidence of mass, ulceration, or other abnormality. Normal rugal fold pattern. Contrast freely passed into the gastric antrum and duodenal bulb without delay. Single and air-contrast images of the duodenal bulb demonstrate no abnormality. The duodenal sweep has a normal appearance, course, and mucosal fold appearance. FLUOROSCOPY TIME: 2 minutes, 24 seconds Number of Spot Images:8 Number of cines obtained: 12 DOSE AREA PRODUCT: 3088 uGy-m2 (microgray-meter squared) FL/FL upper GI w air IMPRESSION: 1. Laryngeal penetration without glottic or subglottic aspiration identified. 2. Mild gastroesophageal reflux identified during the course of the examination. 3. Mildly disordered esophageal peristalsis. 4. No definite hiatus hernia. Normal GE junction. 5. Normal-appearing stomach and duodenum. Electronically signed by: Isaias Babcock MD 08/05/2024 10:50 AM EDT
== END 2024-08-05 09:19 | disposition home or self-care (01) ==
LOC: HO.XRAY 09:18
PROVIDERS: PCP Internal Medicine; Visit Provider Surgery
DX: Z01.818 Encounter for other preprocedural examination (principal); E66.01 Morbid (severe) obesity due to excess calories; E11.9 Type 2 diabetes mellitus without complications; Z79.4 Long term (current) use of insulin; K21.9 Gastro-esophageal reflux disease without esophagitis; G47.30 Sleep apnea, unspecified; J45.909 Unspecified asthma, uncomplicated; E03.9 Hypothyroidism, unspecified
CPT/HCPCS: 74246

== ENCOUNTER → 2024-08-05 09:24 | Outpatient (BNV) | payer MEDICARE, MEDICAID, SELFPAY | PROVIDERS: PCP Internal Medicine; Visit Provider Radiology Diagnostic Radiology | DX: E66.01 Morbid (severe) obesity due to excess calories (principal) | CPT/HCPCS: 74246 ==

== ENCOUNTER 2024-08-13 08:14 | Day surgery (SDC) | payer MEDICARE, MEDICAID, SELFPAY ==
[2024-08-05 08:14] LABS: MANUAL DIFF FLAG NO
[2024-08-05 09:07] LABS: Hematocrit 33.1 % (37.0-47.0); Hemoglobin 11.0 g/dl (12.0-16.0); Imm Gran Abs Auto 0.02 X10*3/uL (0.00-0.03); Imm Gran Pct Auto 0.3 % (0.0-0.4); Lymphocytes Absolute Auto 1.4 X10*3/uL (1.2-4.9); Mean Corpuscular HGB Conc 33.2 g/dl (31.0-35.0); Mean Corpuscular Hemoglobin 29.8 pg (27.0-33.0); Mean Corpuscular Volume 89.7 fL (80.0-98.0); NRBC Abs Auto 0.000 X10*3/uL (0.0-0.012); NRBC Pct Auto 0.0 /100WBC (0.0-0.2); Platelet Count 330 X10*3/uL (160-400); Red Blood Count 3.69 X10*6/uL (4.20-5.50); White Blood Count 6.3 X10*3/uL (4.8-10.8)
[2024-08-05 09:14] LABS: INTERNATIONAL NORM RATIO 1.1 (0.9-1.1); Prothrombin Time 12.4 SEC (10.9-12.4)
[2024-08-05 09:17] LABS: Partial Thromboplastin Time 38.4 SEC (26.0-36.8)
[2024-08-05 09:19] LABS: Hemoglobin A1C 104.3045 umol/L; Total Hemoglobin (HGBA1C) 2785.7852 umol/L
[2024-08-05 10:11] LABS: Alanine Aminotransferase 22 U/L (0-31); Albumin Level 4.3 g/dL (3.5-5.0); Alkaline Phosphatase 107 U/L (39-117); Anion Gap 14 (12-20); Aspartate Amino Transferase 23 U/L (5-31); Blood Urea Nitrogen 26 mg/dL (9-16); Calcium 9.6 mg/dL (8.4-10.2); Carbon Dioxide 25 mmol/L (22-29); Chloride 102 mmol/L (96-108); Cholesterol 188 mg/dL (<200); Estimated Glomerular Filt Rate 35; HDL Cholesterol 77 mg/dL (>40); Potassium 4.8 mmol/L (3.3-5.1); Sodium 136 mmol/L (135-145); Total Protein 6.9 g/dL (6.5-8.0); Triglycerides 89 mg/dL (<150)
[2024-08-09 10:13] VITALS: BMI 36.2
[2024-08-13] VITALS (10 sets, daily range): BP systolic 116–158; BP diastolic 31–68; PULSE 61–72; RESP 12–18; TEMP 36–36.6; O2SAT 93–99
[2024-08-13] MEDS: Lactated Ringers 1,000 ML 999 ML IV (06:31)
[2024-08-13] MEDS: Aprepitant 32 MG/4.4 ML VIAL IVPUSH (06:38)
[2024-08-13] MEDS: Lactated Ringers 1,000 ML 100 ML IVCONT (07:28)
--- NOTE | 2024-08-13 07:30 | HO.ANESPROP2 ---
Documented by User: Blanca Lemus NP 08/12/24 10:24 HPI - Anesthesia Eval Consult details Narrative: 63yo F for Gastrectomy Sleeve - EGD, possible diaphragmatic hernia, possible ventral hernia, possible open Eliquis for DVT/PE - bridge with artixtra Anesthesia Pre-Procedure Meds Is the patient on any of the following meds?: GLP1/DPP4 PMFSH Active Problems Active Problems: All Active Problems Obesity (Acute) Anemia (Chronic) Greater trochanteric bursitis of left hip (Acute) Insulin dependent type 2 diabetes mellitus (Acute) Extensor carpi ulnaris tendinitis (Acute) Status post total right knee replacement (Acute) Right knee pain (Acute) History of venous thromboembolism (Acute) Hypothyroid (Acute) Insomnia (Acute) Stress incontinence (Acute) Anxiety (Acute) Bipolar 1 disorder (Acute) Sleep apnea (Acute) Asthma (Acute) Chronic renal insufficiency (Acute) GERD (gastroesophageal reflux disease) (Acute) Morbid obesity (Acute) Past Medical History Medical History (Updated 08/13/24 @ 07:39 by Gibran Palm MD) Hyperlipidemia Insomnia Stress incontinence History of venous thromboembolism Anxiety Bipolar 1 disorder Arthritis of right knee Fatty liver Asthma Hypothyroid DVT (deep venous thrombosis) Fibromyalgia HTN (hypertension) Chronic renal insufficiency Type 2 diabetes mellitus Depression Morbid obesity Chronic pulmonary embolism Sleep apnea GERD (gastroesophageal reflux disease) Elevated cholesterol Family History Family History Father Diabetes Heart failure HTN (hypertension) Maternal Aunt Diabetes Paternal Grandmother Diabetes Mother HTN (hypertension) Maternal Grandfather Lung cancer Paternal Grandfather Lung cancer Paternal Aunt Breast cancer Family/Other Prostate CA Paternal Uncle Heart disease Family history of problems with anesthesia: No (Aunt is difficult intubation) Surgical History Surgical History History of right knee joint replacement History of esophagogastroduodenoscopy (EGD) H/O colonoscopy Hx of inguinal hernia repair Hx of sinus surgery Hx of shoulder surgery Hx of umbilical hernia repair Hx of arthroscopy of right knee History of bladder suspension procedure Hx of tonsillectomy H/O: hysterectomy History of ankle surgery History of Problems with Anesthesia: No Social History Social History Household Members: Family Household Members Other:: takes care of parents Housing: House Are you a primary healthcare prof to a significant other at home: No Do you presently have visiting nurse or other home services: No Patient Tobacco Use Status: Former Tobacco user Tobacco use type: Cigarette Years Smoked: 30 Second Hand Smoke Exposure: No Advance Directives Date on File: 11/02/23 service: No Current occupational status: retired Meds Allergies Allergy/AdvReac Type Severity Reaction Status Date / Time No Known Allergies Allergy Verified 08/13/24 06:42 Home Medications ?Medication ?Instructions ?Recorded ?Confirmed ?Last Taken ?Type albuterol sulfate 90 mcg/actuation 1 inh inhalation Q4H PRN Shortness 08/01/23 08/09/24 Unknown History aerosol inhaler (Ventolin HFA) Of Breath Or Wheezing apixaban 5 mg tablet (Eliquis) 5 mg PO BID 08/01/23 08/09/24 08/08/24 History atorvastatin 80 mg tablet 80 mg PO BEDTIME 08/01/23 08/09/24 10/29/23 History carvedilol 3.125 mg tablet 3.125 mg PO BID 08/01/23 08/09/24 08/13/24 History famotidine 20 mg tablet 40 mg PO BEDTIME 08/01/23 08/09/24 10/29/23 History mirabegron 50 mg tablet,extended 50 mg PO DAILY 08/01/23 08/09/24 10/29/23 History release 24 hr (Myrbetriq) omeprazole 20 mg capsule,delayed 20 mg PO DAILY@0608/01/23 08/09/24 10/30/23 History release oxcarbazepine 600 mg tablet 600 mg PO BID 08/01/23 08/09/24 10/29/23 History levothyroxine 25 mcg tablet 25 mcg PO DAILY@0600 10/19/23 08/09/24 10/30/23 History carvedilol 6.25 mg tablet 6.25 mg PO BID 10/20/23 08/09/24 08/13/24 History fluticasone 250 mcg-salmeterol 50 1 ea inhalation BID PRN asthma 10/20/23 08/09/24 10/30/23 History mcg/dose blistr powdr for inhalation (Darvin Inhub) fluticasone propionate 50 1 spray intranasal DAILY 10/30/23 08/09/24 Unknown History mcg/actuation nasal spray,suspension trazodone 150 mg tablet 150 mg PO BEDTIME PRN Insomnia 10/30/23 08/09/24 Unknown History aripiprazole 5 mg tablet 5 mg PO DAILY 01/18/24 08/09/24 Unknown History escitalopram oxalate 20 mg tablet 25 mg PO DAILY 01/18/24 08/09/24 Unknown History clonazepam 0.5 mg tablet 1 mg PO BID 05/16/24 08/09/24 Unknown History escitalopram oxalate 5 mg tablet 5 mg PO DAILY 05/16/24 08/09/24 Unknown History tirzepatide 12.5 mg/0.5 mL 12.5 mg subcut QWEEK 05/16/24 08/13/24 07/30/24 History subcutaneous pen injector (Mounjaro) insulin lispro 200 unit/mL (3 mL) 20 unit subcut TID 05/27/24 08/09/24 Unknown History subcutaneous pen (Humalog KwikPen U-200 Insulin) Exam Height,Weight and Vital Signs: Height 5 ft 4 in Weight 95.708 kg Pertinent Lab Results Pertinent Lab Results: Laboratory Tests 08/05/24 08/05/24 08:08 08:13 WBC 6.3 RBC 3.69 L Hgb 11.0 L Hct 33.1 L MCV 89.7 MCH 29.8 MCHC 33.2 RDW 12.8 Plt Count 330 MPV 10.1 Immature Gran % (Auto) 0.3 Neut % (Auto) 68.7 Lymph % (Auto) 21.4 Cowley % (Auto) 4.6 Eos % (Auto) 3.7 Baso % (Auto) 1.3 Lymph # (Auto) 1.4 Cowley # (Auto) 0.3 Eos # (Auto) 0.2 Baso # (Auto) 0.1 Abs Immat Gran (auto) 0.02 Absolute Neuts (auto) 4.3 Absolute Nucleated RBC 0.000 Nucleated RBC % (auto) 0.0 PT 12.4 INR 1.1 APTT 38.4 H Sodium 136 Potassium 4.8 Chloride 102 Carbon Dioxide 25 Anion Gap 14 BUN 26 H Creatinine 1.51 H Estim Creat Clear Calc TNP Estimated GFR 35 Random Glucose 103 Estimat Average Glucose 114 Hemoglobin A1c % 5.6 Insulin Level 11 Calcium 9.6 Total Bilirubin 0.2 AST 23 ALT 22 Alkaline Phosphatase 107 C-Reactive Protein 0.65 H Total Protein 6.9 Albumin 4.3 Triglycerides 89 Cholesterol 188 LDL Cholesterol, Calc 94 HDL Cholesterol 77 TSH 0.99 Blood Type O Negative Antibody Screen NEGATIVE Narrative Narrative: EKG 05/2024 Vent. Rate : 73 BPM Atrial Rate : 73 BPM P-R Int : 160 ms QRS Dur : 86 ms QT Int : 386 ms P-R-T Axes : 48 8 49 degrees QTcB Int : 425 ms Normal sinus rhythm Normal ECG No previous ECGs available Assessment and Plan Assessment Anesthesia Assessment: Chart Reviewed Final Anesthetic Review Family History of Problems with Anesthesia: No (Aunt is difficult intubation) History of Problems with Anesthesia: No Documented by User: Savannah Marshall DO 08/13/24 07:57 HPI - Anesthesia Eval Anesthesia Pre-Procedure Meds Is the patient on any of the following meds?: GLP1/DPP4 PMFSH Past Medical History Medical History (Updated 08/13/24 @ 07:39 by Gibran Palm MD) Hyperlipidemia Insomnia Stress incontinence History of venous thromboembolism Anxiety Bipolar 1 disorder Arthritis of right knee Fatty liver Asthma Hypothyroid DVT (deep venous thrombosis) Fibromyalgia HTN (hypertension) Chronic renal insufficiency Type 2 diabetes mellitus Depression Morbid obesity Chronic pulmonary embolism Sleep apnea GERD (gastroesophageal reflux disease) Elevated cholesterol Family History Family History Father Diabetes Heart failure HTN (hypertension) Maternal Aunt Diabetes Paternal Grandmother Diabetes Mother HTN (hypertension) Maternal Grandfather Lung cancer Paternal Grandfather Lung cancer Paternal Aunt Breast cancer Family/Other Prostate CA Paternal Uncle Heart disease Family history of problems with anesthesia: No (Aunt is difficult intubation) Surgical History Surgical History History of right knee joint replacement History of esophagogastroduodenoscopy (EGD) H/O colonoscopy Hx of inguinal hernia repair Hx of sinus surgery Hx of shoulder surgery Hx of umbilical hernia repair Hx of arthroscopy of right knee History of bladder suspension procedure Hx of tonsillectomy H/O: hysterectomy History of ankle surgery History of Problems with Anesthesia: No Social History Social History Household Members: Family Household Members Other:: takes care of parents Housing: House Are you a primary healthcare prof to a significant other at home: No Do you presently have visiting nurse or other home services: No Patient Tobacco Use Status: Former Tobacco user Tobacco use type: Cigarette Years Smoked: 30 Second Hand Smoke Exposure: No Advance Directives Date on File: 11/02/23 service: No Current occupational status: retired [employer] Allergies Allergy/AdvReac Type Severity Reaction Status Date / Time No Known Allergies Allergy Verified 08/13/24 06:42 Home Medications ?Medication ?Instructions ?Recorded ?Confirmed ?Last Taken ?Type albuterol sulfate 90 mcg/actuation 1 inh inhalation Q4H PRN Shortness 08/01/23 08/09/24 Unknown History aerosol inhaler (Ventolin HFA) Of Breath Or Wheezing apixaban 5 mg tablet (Eliquis) 5 mg PO BID 08/01/23 08/09/24 08/08/24 History atorvastatin 80 mg tablet 80 mg PO BEDTIME 08/01/23 08/09/24 10/29/23 History carvedilol 3.125 mg tablet 3.125 mg PO BID 08/01/23 08/09/24 08/13/24 History famotidine 20 mg tablet 40 mg PO BEDTIME 08/01/23 08/09/24 10/29/23 History mirabegron 50 mg tablet,extended 50 mg PO DAILY 08/01/23 08/09/24 10/29/23 History release 24 hr (Myrbetriq) omeprazole 20 mg capsule,delayed 20 mg PO DAILY@0608/01/23 08/09/24 10/30/23 History release oxcarbazepine 600 mg tablet 600 mg PO BID 08/01/23 08/09/24 10/29/23 History levothyroxine 25 mcg tablet 25 mcg PO DAILY@0600 10/19/23 08/09/24 10/30/23 History carvedilol 6.25 mg tablet 6.25 mg PO BID 10/20/23 08/09/24 08/13/24 History fluticasone 250 mcg-salmeterol 50 1 ea inhalation BID PRN asthma 10/20/23 08/09/24 10/30/23 History mcg/dose blistr powdr for inhalation (Darvin Harrell) fluticasone propionate 50 1 spray intranasal DAILY 10/30/23 08/09/24 Unknown History mcg/actuation nasal spray,suspension trazodone 150 mg tablet 150 mg PO BEDTIME PRN Insomnia 10/30/23 08/09/24 Unknown History aripiprazole 5 mg tablet 5 mg PO DAILY 01/18/24 08/09/24 Unknown History escitalopram oxalate 20 mg tablet 25 mg PO DAILY 01/18/24 08/09/24 Unknown History clonazepam 0.5 mg tablet 1 mg PO BID 05/16/24 08/09/24 Unknown History escitalopram oxalate 5 mg tablet 5 mg PO DAILY 05/16/24 08/09/24 Unknown History tirzepatide 12.5 mg/0.5 mL 12.5 mg subcut QWEEK 05/16/24 08/13/24 07/30/24 History subcutaneous pen injector (Mounjaro) insulin lispro 200 unit/mL (3 mL) 20 unit subcut TID 05/27/24 08/09/24 Unknown History subcutaneous pen (Humalog KwikPen U-200 Insulin) Exam Exam Date and Time: 08/13/24 0730 Height,Weight and Vital Signs: Height 5 ft 4 in Weight 95.708 kg Vital Signs Temperature 97.6 F 08/13/24 06:20 Pulse Rate 64 08/13/24 06:20 Respiratory Rate 14 08/13/24 06:20 Blood Pressure 133/31 L 08/13/24 06:20 Pulse Oximetry 98 08/13/24 06:20 Oxygen Delivery Method Room Air 08/13/24 06:20 Temperature 97.6 F 08/13/24 06:20 Pulse Rate 64 08/13/24 06:20 Respiratory Rate 14 08/13/24 06:20 Blood Pressure 133/31 L 08/13/24 06:20 Pulse Oximetry 98 08/13/24 06:20 Oxygen Delivery Method Room Air 08/13/24 06:20 Airway Mallampati Class: I TM Dist: >3cm Neck ROM: Full Loose/Missing/Broken Teeth: No (patient denies any loose or broken teeth) Heart: S1S2 Lungs: CTAB Assessment and Plan Assessment Anesthesia Assessment: Anesthesia Plan Discussed and Chart Reviewed Final Anesthetic Review Family History of Problems with Anesthesia: No (Aunt is difficult intubation) History of Problems with Anesthesia: No NPO: Yes ASA Class: III Final Preanesthetic Review: No Changes in Pt Med Stat, Meds/Allgs Chart Reviewed, Consent Obtained/Reviewed and Anes Risks/Benef Reviewed Patient Risk: Intermediate Procedure Risk: Intermediate Anesthetic Plan Anesthetic Plan: GA and Agree w/ Assess. and Plan Disposition: Standard PACU
--- NOTE | 2024-08-13 07:31 | MHC.SHP ---
Pre-Procedural Eval Section A - 24 Hr Update-Section A only Date of Service: 08/13/24 The patient is an INPATIENT: No The patient has been examined within 24 hours of the surgical procedure. The History & Physical has been completed within 30 days and I have reviewed it.: Yes Section B - Complete if H&P > 30 days Chief Complaint: Obesity, unspecified Relevant Family History (Specify if Yes): No Relevant Social History: None Present Medications: None Medical History: No relevant PMH History of Previous Operations: No relevant previous surgery Allergies: Allergies Allergy/AdvReac Type Severity Reaction Status Date / Time No Known Allergies Allergy Verified 08/13/24 06:42 Review of Systems Sugical H&P ROS: Negative: Constitution, Cardiovascular, Respiratory, Neurological, Psychiatric, Hem-Onc, Allergic/Immunologic, Gastrointestinal, Genitourinary, Musculoskeletal, Integumentary, Endocrine and Eyes/Ears/Nose/Throat Exam Surgical H&P Exam: Normal: HEENT, Normal: Heart, Normal: Lungs, Normal: Extremities, Normal: Abdomen, Normal: Skin and Normal: Neurological Plan Diagnosis/Plan: Unchanged I have reviewed the history and physical and performed a pertinent physical examination on my patient. No changes have occurred unless specified. Time Spent With Patient Time: Total time managing care of this patient today ____ minutes.
--- NOTE | 2024-08-13 07:33 | P.BOP_ITS ---
Brief Operative Note Date of Service: 08/13/24 Pre-op diagnosis: Severe obesity with comorbidities Post-op diagnosis: same (extensive abdominal adhesions) Procedure: INITIAL PATIENT BMI ON PRESENTATION AT OUR OFFICE: 40.7 kg/m2 LAST BMI BEFORE SURGERY: 36.1 kg/m2 COMORBIDITIES: mild CRF, history of VTE/PE, insulin dependent diabetes, sleep apnea on CPAP, hypertension, hypothyroidism, hyperlipidemia, asthma, depression, anxietystress incontinence, GERD, constipation, liver fibrosis ?The patient presented to the Weight Management Program with significant obesity that was negatively impacting the patient's comorbidities as listed above.? The program is a phased program with a special focus on preoperative medical weight management to promote substantial weight loss and prepare the patients for the second phase of the program: bariatric surgery. The patient participated in an intensive weekly lifestyle ?intervention and exercise program during which the patient ?has lost between the initial office visit and the last preoperative visit 28.7lbs, or 12.1% of initial actual body weight. It was deemed appropriate for the patient to now have bariatric surgery. In light of the current Covid-19 pandemic and the well documented strong association of obesity and increased risk of worse outcomes if infected with Covid-19 (REFERENCES: https://pubmed.ncbi.nlm.nih.gov/86645073/ ,? https://pubmed.ncbi.[facility].nih.gov/01027428/ ), any delay in undergoing bariatric surgery may lead to the patient's worsening health condition and increased?risk of more severe Covid-19 disease if infected. In addition a recent?study from [facility] published in [facility] on 02/08/2021 ([email or web address]) found that, among patients with obesity, substantial weight loss achieved with surgery was associated with improved outcomes of COVID-19 infection. The findings suggest that obesity can be a modifiable risk factor for the severity of COVID-19 infection. In addition, the patient met the BMI-criteria for bariatric surgery based on the BMI on initial presentation. The patient should not be penalized for achieving such weight loss because ?it is not sustainable long-term without surgical intervention and it was achieved in preparation for bariatric surgery ?under my direction and based on my published research ([email or web address]/ [email or web address]).[email or web address] and? https://www.soard.org/article/[email or web address](36)03430-X/pdf ) ?that a 10% preoperative weight loss improves long-term weight loss after surgery and reduces perioperative complications.? Insurance carriers such as [facility] have endorsed my recommendations ?and have included in their policies criteria to include a 10% preoperative weight loss requirement. PROCEDURE: Esophago-gastroscopy, laparoscopic lysis of adhesions, laparoscopic sleeve gastrectomy and laparoscopic gastropexy INDICATIONS: This is a 63 year-old female who was electively scheduled for laparoscopic, possibly open sleeve gastrectomy. The risks and complications of the procedure were discussed with the patient in advance, particularly the possibility of ; pulmonary embolism; staple line leak; bleeding; GERD; cardiac, pulmonary, or renal complications; as well as long-term problems such as insufficient weight loss, vitamin deficiency, strictures, or ulcers. The patient understood all the risks, and was in agreement to proceed with surgery. DESCRIPTION OF PROCEDURE: After informed consent was obtained from the patient, the patient was given pre operative antibiotics, and was transferred to the operating room. After successful induction of general anesthesia, pneumatic compression devices were placed on both lower extremities. An upper endoscopy was performed next. The oropharynx and esophagus appeared to be within normal limits. There was no diaphragmatic hernia present. The stomach was entered. Then after all fluid and air were suctioned and the stomach was fully decompressed, the scope was withdrawn and secured in the mid esophagus. The patient was then prepped and draped in the usual sterile manner, and abdominal access was established at the right upper quadrant with the Makayla technique. A 12 mm blunt port was inserted, and the abdomen was insufflated with CO2 to a pressure of 15 mmHg. Under direct visualization, additional ports were placed, specifically two 5 mm Versi-step ports to the left upper quadrant, and a 5 mm Versi-Step port to the right upper quadrant. 1% lidocaine plain was used to infiltrate all port sites as well as all fascia defects. Following that, the patient was placed in a steep reverse Trendelenburg position. An additional 5 mm port was placed to the right flank for the Mediflex retractor that was used to retract the left lobe of the liver. The gastro-esophageal fat pad was opened with the ultrasonic device (Thunderbeat, Olympus) and the anterior esophagus and hiatus were exposed. The angle of His was opened with the ultrasonic device the fundus of the stomach from any diaphragmatic and splenic attachments. I then opened the gastrocolic ligament between the transverse colon and the greater curvature of the stomach with the ultrasonic device to enter the lesser sac and facilitate the ligation of the short gastric vessels. I started at a mid-point along the greater curvature and using the Thunderbeat, all short gastric vessels were divided all the way to the angle of His until the left lavon was completely dissected at its entirety. I then divided the gastro-colic lig ament distally to a distance of about 3-4 cm proximal to the pylorus. There were extensive congenital adhesions between the pancreas and posterior gastric wall. Those were lysed completely with the ultrasonic device. Adhesiolysis took approximately 45 min to complete. The stomach was then divided transversely with four Endo TASNEEM-45 purple and three TASNEEM-60 articulating purple loads using the SIGNIA stapler and loads. Every effort was made that the gastric sleeve had a tubular shape and an even caliber throughout. Once the sleeve resection was completed, the staple line of the gastric sleeve was reinforced with Hemoclips. The resected stomach was retrieved without difficulty from the Makayla port. A gastropexy was then performed in order to prevent postoperative GERD and partial gastric volvulus. Several interrupted 2.0 Surgidac sutures were placed between the sleeve's staple line and the previously divided greater omentum and gastro-colic ligament using the Endo-Stitch device. ?An upper endoscopy was performed. There was no narrowing at the GE junction. The scope was easily advanced all the way to the pylorus which was clearly visualized. There was no narrowing anywhere and the sleeve's caliber was even throughout. The sleeve's staple line was inspected and there was no evidence of ischemia, bleeding or dehiscence. At that point the gastroscope was withdrawn from the patient?s mouth while we were decompressing the bowel and the stomach from any remaining air. I looked into the lesser sac to see how the sleeve was situating and it was situating well. There was no bleeding from the staple line, spleen, or short gastric vessels. The Mediflex retractor was removed, and the undersurface of the liver was inspected and there was no bleeding. The patient was placed in supine position. I closed the fascial defect of the 12 mm port site with a figure of eight #1 Polysorb suture. Then 30cc Ropivacaine plain with 10 mg of Dexamethasone were used to infiltrate the fascial closure as well as all skin incisions. At this point, the abdomen was deflated, all ports were removed under direct vision, and no bleeding was noted from any of the port sites. The skin incisions were irrigated with saline and were closed with 4-0 absorbable monofilament sutures. Steri-Strips and OpSites were used to cover all incisions. The patient was extubated and was transferred in stable condition to the recovery room for further care. I was present and performed all anna parts of the procedure. Mr. Harrell was the grants and contracts assistant. There were no residents to assist with this case. Jerson Palm MD, PhD, FACS Surgeon: Gibran Palm MD Anesthesia: local and other (TAP block) Was an Director Life Sciences used for this Procedure?: No Director Life Sciences: Rommel Harrell Estimated blood loss (mL): 10 IV fluids (mL): 2,000 Urine output (mL): 0 (No Jha to record output) Pathology: other (1) Stomach, 2) Gastro-esophageal fat pad) Condition: stable Disposition: PACU
--- NOTE | 2024-08-13 07:37 | P.PNGS_ITS ---
Subjective Subjective Date of Service: 08/14/24 Interval history: Feels well. Mild incisional pain. She is tolerating phase 1 bariatric diet Physical Exam 2 Vital Signs: Vital Signs: Last Vital Signs Temp 97.6 F 08/13/24 06:20 Pulse 64 08/13/24 06:20 Resp 14 08/13/24 06:20 BP 133/31 L 08/13/24 06:20 Pulse Ox 98 08/13/24 06:20 O2 Del Method Room Air 08/13/24 06:20 BMI result Body Mass Index 36.2 GI: Inspection: Yes normal to inspection and Yes incision (clean, dry and intact) Palpation (GI): Soft to palpation Extrem: Right lower extremity: normal to inspection (no calf tenderness) L eft lower extremity: normal to inspection (no calf tenderness) Objective Data Active Medications Lactated Ringer's (Lr) 1,000 mls @ 100 mls/hr IVCONT .Q10H KEVYN Stop: 08/13/24 09:14 Last Admin: 08/13/24 07:28 Dose: 100 mls/hr Documented By: VANNESA Lactated Ringer's (Lr) 1,000 mls @ 999 mls/hr IV .Q1H1M KEVYN Stop: 08/13/24 08:15 Last Admin: 08/13/24 06:31 Dose: 999 mls/hr Documented By: VANNESA Labs 08/14/24 05:43 08/14/24 05:43 Procedures Date of Service Date of Service: 08/14/24 Progress Note: A&P Assessment and plan (1) Obesity: Status: Acute Assessment and Plan: s/p laparoscopic sleeve gastrectomy, lysis of adhesions and gastropexy Doing well Will check am labs and if OK the patient will be discharged home (2) BMI 36.0-36.9,adult: Status: Acute (3) Insulin dependent type 2 diabetes mellitus: Status: Acute (4) Hypothyroid: Status: Acute (5) Bipolar 1 disorder: Status: Acute (6) Anxiety: Status: Acute (7) History of venous thromboembolism: Status: Acute (8) GERD (gastroesophageal reflux disease): Status: Acute (9) Chronic renal insufficiency: Status: Acute (10) Asthma: Status: Acute (11) Anemia: Status: Chronic (12) Sleep apnea: Status: Acute (13) Insomnia: Status: Acute (14) Liver fibrosis: Status: Acute (15) Stress incontinence: Status: Acute (16) HTN (hypertension): Status: Acute (17) Hyperlipidemia: Status: Acute (18) S/P laparoscopic sleeve gastrectomy: Status: Acute (19) Congenital intra-abdominal adhesions: Status: Acute Time Spent With Patient Time: Total time managing care of this patient today ____ minutes. Quality Stroke Does the patient have a stroke diagnosis?: No VTE Prior VTE?: No VTE Risk Level:: Surgical - moderate VTE Device Contraindication: N/A - Device Ordered VTE Drug Contraindication: Treatment Not Indicated
--- NOTE | 2024-08-13 09:55 | PM.DS ---
DS: Providers Provider Date of Service: 08/14/24 Date of discharge: 08/14/24 Primary care physician: Janak Greer MD DS: Diagnosis Discharge Diagnosis (1) Obesity: Status: Acute (2) BMI 36.0-36.9,adult: Status: Acute (3) Insulin dependent type 2 diabetes mellitus: Status: Acute (4) Hypothyroid: Status: Acute (5) Bipolar 1 disorder: Status: Acute (6) Anxiety: Status: Acute (7) History of venous thromboembolism: Status: Acute (8) GERD (gastroesophageal reflux disease): Status: Acute (9) Chronic renal insufficiency: Status: Acute (10) Asthma: Status: Acute (11) Anemia: Status: Chronic (12) Sleep apnea: Status: Acute (13) Insomnia: Status: Acute (14) Liver fibrosis: Status: Acute (15) Stress incontinence: Status: Acute (16) HTN (hypertension): Status: Acute (17) Hyperlipidemia: Status: Acute DS: Summary Hospital Course Hospital Course: ADMITTING DIAGNOSIS: obesity, dm, arnoldo, htn, bipolar, asthma, hypothyrroid, hx dvt ? DISCHARGE DIAGNOSIS: same, s/p laparoscopic sleeve gastrectomy ? PAST SURGICAL HISTORY: R TKR, inguinal hernia repair, sinus surgery, umbilical hernia repair, hysterectomy ? PROCEDURE: upper endoscopy, laparoscopic sleeve gastrectomy ? DISCHARGE SUMMARY: ? History of Present Illness: ? The patient is a?63 year-old woman with a BMI of?40.7 kg/m2 and associated co-morbidities as described above. The patient had extensive work-up,lost?26.8 lbs preoperatively and was electively scheduled for laparoscopic, possible open sleeve gastrectomy and gastropexy. Risks and complications of the surgery were discussed with the patient in advance, particularly the possibility of , pulmonary embolism, anastomotic leak, bleeding, bowel injury, GERD, cardiac, renal or pulmonary complications. The patient understood all the risks and was in agreement with the surgical plan. ? Hospital Course: ? The patient underwent an uneventful laparoscopic sleeve gastrectomy with gastropexy on the day of admission. Postoperatively, the patient was transferred to the surgical floor. The patient received IV Acetaminophen and IV dilaudid for pain control. Patient was started on bariatric phase 1 diet POD #0. On postoperative day one, the patient was feeling well without nausea, vomiting, fevers, or tachycardia. The patient had some mild incisional pain and the abdomen was soft. ? On the morning of postoperative day one, the patient was continued on 1 ounce of water or ice every half hour. During the day, the patient did fairly well, having some incisional pain, but able to ambulate adequately and to tolerate liquids well. ? Since the patient is doing well, we decided that the patient was ready to be discharged. The patient was given instructions to follow-up with me next week and to call my office for any fever over 101, persistent abdominal pain, nausea, vomiting, GERD, symptoms of DVT such as calf tenderness, or leg swelling, or pulmonary embolism such as chest pain or shortness of breath. The patient was also instructed to drink 40-60 ounces of liquids per day using the 1-ounce cups. The patient had been given prescriptions for Tylenol for pain, Zofran prn for nausea, and pantoprazole and carafate previously. The patient was encouraged to ambulate and use the incentive spirometer. The patient was allowed to shower, but no baths, and encouraged to stay active at home. All of these instructions were given to the patient personally. All questions were answered and the patient understood all instructions, the instructions were also given to the patient in print. Time Attestation Total time managing care of this patient today: 25 mintues. Discharge Coordination Time (in mins): 25 Quality: Safe Use of Opioids Does Pt have an Active Cancer Diagnosis on the Problem List?: No Quality: Stroke Does the patient have a stroke diagnosis?: No Physical Exam Vital Signs: Vital Signs: Last Vital Signs Temp 97.7 F 08/13/24 09:44 Pulse 62 08/13/24 09:49 Resp 12 08/13/24 09:49 BP 121/52 L 08/13/24 09:49 Pulse Ox 98 08/13/24 09:49 O2 Del Method Simple Mask 08/13/24 09:49 O2 Flow Rate 6 08/13/24 09:49 BMI result Body Mass Index 36.2 DS: Data Data Completed and Pending Completed studies during hospitalization [Text1]: Procedures Introduction of Anesthetic Agent into Peripheral Nerves and Plexi, Percutaneous Approach (10/30/23) Replacement of Right Knee Joint with Synthetic Substitute, Cemented, Open Approach (10/30/23) Transfusion of Nonautologous Red Blood Cells into Peripheral Vein, Percutaneous Approach (10/30/23) Pending studies at discharge: Pending at discharge 08/13/24 09:34 Surgical [PTH] Routine Discharge Plan Discharge Patient Disposition: Home, Self-Care Referrals: Janak Greer MD [Primary Care Provider, Internal Medicine] - 1 Week Discharge Medications: Continued (TATIANA) nicole Wynne See Rx Instructions .ROUTE .MEDSUPPLY Qty: 1 0RF Rx Instructions: Folding front wheeled nicole fluticasone propionate 50 mcg/actuation spray,suspension 1 spray intranasal DAILY trazodone 150 mg tablet 150 mg PO BEDTIME PRN (Reason: Insomnia) acetaminophen 325 mg Tablet 650 mg PO Q6H PRN (Reason: Pain, Mild (Pain Scale 1-3), fever or headache) 30 Days Qty: 240 0RF atorvastatin 80 mg tablet 80 mg PO BEDTIME famotidine 20 mg tablet 40 mg PO BEDTIME Myrbetriq 50 mg tablet extended release 24 hr 50 mg PO DAILY omeprazole 20 mg capsule,delayed release(DR/EC) 20 mg PO DAILY@0630 oxcarbazepine 600 mg tablet 600 mg PO BID albuterol sulfate [Ventolin HFA] 90 mcg/actuation HFA aerosol inhaler 1 inh inhalation Q4H PRN (Reason: Shortness Of Breath Or Wheezing) escitalopram oxalate 20 mg tablet 20 mg PO DAILY escitalopram oxalate 5 mg tablet 5 mg PO DAILY clonazepam 0.5 mg tablet 1 mg PO BID aripiprazole 5 mg tablet 5 mg PO DAILY Held carvedilol 6.25 mg tablet 6.25 mg PO BID Hold Instructions: Resume on 08/15/24. Check your blood pressure every morning as soon as you wake up and send it to Dr. Palm. Do no take the blood pressure medication if the blood pressure is below 120/70. Wait every day to hear back from Dr. Palm before you take the medication. carvedilol 3.125 mg tablet 3.125 mg PO BID Hold Instructions: Resume on 08/15/24. Check your blood pressure every morning as soon as you wake up and send it to Dr. Palm. Do no take the blood pressure medication if the blood pressure is below 120/70. Wait every day to hear back from Dr. Palm before you take the medication. Eliquis 5 mg tablet 5 mg PO BID Hold Instructions: until discussed with Dr Palm fondaparinux 2.5 mg/0.5 mL syringe 2.5 mg subcut Q24H Qty: 5 0RF Hold Instructions: until discussed with Dr Palm No Action levothyroxine 50 mcg tablet 50 mcg PO DAILY@0600 docusate sodium 100 mg Tablet 100 mg PO DAILY PRN (Reason: Constipation) Discharge Orders: Discharge Order (Routine); Ordered 08/14/24 Ordered By: Gibran Palm Activity on Discharge: No heavy lifting Activity Restrictions/Additional Instructions: No tub baths, sex or returning to work until discussed at first post op appointment. No exercise, alcohol, tobacco or illegal drug use. Continue to use incentive spirometer hourly while awake. Walk in home for 5- 10 minutes every 2 hours during the first week. Follow all instructions in the bariatric handbook and call with any questions.Discharge Instructions 1. Please call your doctor or come back to the emergency room should any new symptoms arise. 2. You will receive a courtesy call from [facility] 24-48 hours after discharge. 3. Activity: abstain from alcohol, practice limited stair climbing, no bending, no driving, no exercise, no illicit substances, no lifting, no sex, no tub bath, no work. 4. Diet: continue as discussed with Dr. Palm. 5. Dressing Change/Wound Care: Your incision is covered by clear bandages and guaze underneath. If the area is tender, you may apply an ice pack for short intervals (no more than 20 minutes on, followed by at least 20 minutes off). Do not apply heat. Do not use creams, lotions, or topical antibiotics unless instructed to do so by your surgeon. These can cause infection or allergic reaction. 6. Call your doctor if: - Your temperature exceeds 101.5 F - You experience excessive pain or swelling - You have an unexpected reaction to medication - You have excessive bleeding - You experience continued vomiting/nausea - Your incision begins to separate - Your incision shows signs of infection such as increased redness, swelling, excessive pain, heat, or drainage (light blood or clear fluid is normal) 7. General instructions: No lifting greater than 5 lbs for 1 week and not more than 20lbs the next 3?weeks. No driving until seen at the office in 5-7 days after surgery. If you do not move your bowels in the next 2 days, please tell?Dr. Palm. Please walk around your home every hour or two to prevent blood clots from forming in your legs. You do not need to wake from sleeping to walk. Please sleep in a bed or couch to prevent kinking at the hips and knees. Please take your incentive spirometer (your lung internet sales representative) home with you and use it for the next few days to prevent pneumonia. You may shower, no hot tubs, baths or swimming pools.?Please follow the post op diet instructions you are?given by Dr Palm? and text me daily at 5-6pm for an update.?If you have any issues or concerns or questions please communicate this to him via text.? The Celebrate shakes have all of the bariatric vitamins you need if you consume these shakes. If you are drinking other protein shakes, you will need to purchase the Celebrate multivitamins and calcium that are available in the hospital gift shop on the first floor of the [facility].??Do not take anything without first discussing with Dr Palm. Please make sure you are consuming at least 40 ounces of fluids per day starting the?day AFTER your discharge from the hospital. Always drink 1-2 ml per minute using the 5ml?syringe. If you drink faster you may experience?bloating,?gas pain, burping, nausea or heartburn. In that case please slow down your pace and use the syringe to?understand better the?proper?pace and volume of drinking. Do not hesitate to contact the office with any questions at . The patient's medical history has been reviewed and they are considered low risk for post op DVT and therefore DVT prophylaxis is not considered necessary. Travel after surgery was reviewed. The patient has not disclosed any travel plans during the first 30 days after surgery and they have been advised that within the first 30 days after surgery any bus, plane, train or car travel over 2 hours in duration is contraindicated due to the possibility of developing blood clots from immobility. Any travel, needs to include periods of ambulation of 10 minutes in duration every 2 hours.? The patient was instructed to discuss any plans for travel during this period with their bariatric surgeon. Print Language: [place] Discharge Date/Time: 08/14/24 09:35
[2024-08-13 10:27] LABS: Hematocrit 31.2 % (37.0-47.0); Hemoglobin 10.7 g/dl (12.0-16.0)
[2024-08-13 10:37] LABS: Anion Gap 13 (12-20); Blood Urea Nitrogen 30 mg/dL (9-16); Calcium 9.0 mg/dL (8.4-10.2); Carbon Dioxide 25 mmol/L (22-29); Chloride 98 mmol/L (96-108); Creatinine Clr Calc Pharmacy 47.4; Estimated Glomerular Filt Rate 39; Potassium 4.6 mmol/L (3.3-5.1); Sodium 131 mmol/L (135-145)
--- NOTE | 2024-08-13 11:21 | PHA.MEDREC ---
Addendum entered by Baylee Champagne RPh 08/13/24 12:20: MED REC REVIEWED BY [facility] Original Note: Pharmacy Consult ? Medication Reconciliation Pharmacy reviewed med rec, previously confirmed by nursing. Spoke with pt and she confirmed her medications. Pt confirmed her Eliquis 5mg tab but stopped it 08/08 for the surgery, she is also not taking Humalog as of a week ago per her Dr due to the pt loosing a lot of weight recently and thinking it was a factor of that and she stopped her Monjaro 07/30 due to it dropping her BS too much. Pt still taking Fondaparinux injection and confirmed she has 4 dosed left at home. Pt confirmed her Levothyroxine tabs and stated it is 50mcg dose; I updated that in the med rec, nursing confirmed 25mcg. Pt confirmed her Escitalopram 20mg tab and 5mg tab stating she takes those together for a TDD of 25mg QD; updated that since nursing confirmed Escitalopram 20mg taking 25mg QD and 5mg QD. Pt got Pantoprazole, Sucralfate and Ondansetron to start after the surgery. Pt still taking Famotidine and Omeprazole until she starts taking Pantoprazole.
[2024-08-13 11:33] LABS: Glucose, Whole Blood 171 mg/dL (60-115)
[2024-08-13 16:09] LABS: Glucose, Whole Blood 132 mg/dL (60-115)
[2024-08-13 19:30] LABS: Glucose, Whole Blood 122 mg/dL (60-115)
[2024-08-14 03:29] VITALS: BP 138/63; PULSE 65; RESP 18; TEMP 36.9; O2SAT 96
[2024-08-14 06:12] LABS: MANUAL DIFF FLAG NO
[2024-08-14 06:16] LABS: Hematocrit 29.4 % (37.0-47.0); Hemoglobin 10.1 g/dl (12.0-16.0); Imm Gran Abs Auto 0.04 X10*3/uL (0.00-0.03); Imm Gran Pct Auto 0.4 % (0.0-0.4); Lymphocytes Absolute Auto 1.9 X10*3/uL (1.2-4.9); Mean Corpuscular HGB Conc 34.4 g/dl (31.0-35.0); Mean Corpuscular Hemoglobin 29.7 pg (27.0-33.0); Mean Corpuscular Volume 86.5 fL (80.0-98.0); NRBC Abs Auto 0.000 X10*3/uL (0.0-0.012); NRBC Pct Auto 0.0 /100WBC (0.0-0.2); Platelet Count 310 X10*3/uL (160-400); Red Blood Count 3.40 X10*6/uL (4.20-5.50); White Blood Count 9.9 X10*3/uL (4.8-10.8)
[2024-08-14 06:39] LABS: Anion Gap 14 (12-20); Blood Urea Nitrogen 23 mg/dL (9-16); Calcium 8.7 mg/dL (8.4-10.2); Carbon Dioxide 23 mmol/L (22-29); Chloride 105 mmol/L (96-108); Creatinine Clr Calc Pharmacy 50.7; Estimated Glomerular Filt Rate 42; Potassium 3.7 mmol/L (3.3-5.1); Sodium 138 mmol/L (135-145)
[2024-08-14 07:39] LABS: Glucose, Whole Blood 82 mg/dL (60-115)
[2024-08-14 07:45] VITALS: BP 154/70; PULSE 63; RESP 18; TEMP 36.2; O2SAT 96
[2024-08-14] MEDS: Mirabegron 50 MG TAB.ER.24H PO (07:54)
--- NOTE | 2024-08-14 07:54 | MHC.CM.PN ---
S/P Gastric sleeve She lives with her parents and aunt. She is independent with all functional mobility. HCP is on file. DP Home self care. Patient has arranged for a family member to provide transportation home. Discharge order received. Patient has arranged transportion to home 9am warp picker scheduled.
--- NOTE | 2024-08-14 09:17 | PC.NURSE ---
Pt for discharge to home . reviewed activity restriction, suture line care, diet and need for follow up visit . pt instructed on reason and concerns to call Md . Pt accepting of discharge and all questions answered.
--- NOTE | 2024-08-14 10:16 | HO.POSTANES ---
Post Anesthesia Evaluation Post Anesthesia Evaluation Date of Service: 08/13/24 Vital Signs: Vital Signs Temp Pulse Resp BP Pulse Ox O2 Del Method 08/14/24 07:45 97.2 F 63 18 154/70 H 96 Room Air 08/14/24 03:29 98.4 F 65 18 138/63 96 Room Air 08/13/24 23:14 97.8 F 67 18 134/62 95 Room Air Anesthesia: General Endotracheal-GETA and General Mental Status: Awake Pain Control: Satisfactory Nausea/Vomiting: None Hydration: Adequate Anesthesia-Related Issues: No Anes. Related Issues
== END 2024-08-14 09:35 | disposition home or self-care (01) ==
LOC: HO.SSS 08:14 → HO.S3 10:00
PROVIDERS: Physician Assistant Surgical; PCP Internal Medicine; Visit Provider Surgery
PROC: (CPT 43845; principal; 2024-08-13 07:30)
DX: E66.01 Morbid (severe) obesity due to excess calories (principal); Z68.37 Body mass index [BMI] 37.0-37.9, adult; Q43.3 Congenital malformations of intestinal fixation; E11.22 Type 2 diabetes mellitus with diabetic chronic kidney disease; I12.9 Hypertensive chronic kidney disease with stage 1 through stage 4 chronic kidney disease, or unspecified chronic kidney disease; N18.9 Chronic kidney disease, unspecified; E78.00 Pure hypercholesterolemia, unspecified; I26.99 Other pulmonary embolism without acute cor pulmonale; K76.0 Fatty (change of) liver, not elsewhere classified; K21.9 Gastro-esophageal reflux disease without esophagitis; E03.9 Hypothyroidism, unspecified; J45.909 Unspecified asthma, uncomplicated; M79.7 Fibromyalgia; F31.9 Bipolar disorder, unspecified; F41.9 Anxiety disorder, unspecified; G47.33 Obstructive sleep apnea (adult) (pediatric); Z86.718 Personal history of other venous thrombosis and embolism; Z79.01 Long term (current) use of anticoagulants; Z79.51 Long term (current) use of inhaled steroids; Z79.4 Long term (current) use of insulin; Z79.85 Long-term (current) use of injectable non-insulin antidiabetic drugs; Z79.899 Other long term (current) drug therapy; Z99.89 Dependence on other enabling machines and devices; Z98.890 Other specified postprocedural states; Z87.891 Personal history of nicotine dependence
CPT/HCPCS: 43775; 43659; 49329; 36415; 80048; 80053; 80061; 82947; 83036; 83525; 84443; 85014; 85018; 85025; 85610; 85730; 86140; 86850; 86900; 86901; 88304; 88305; 88307; 88342; A4649; J0131; J0461; J0690; J1100; J1171; J2003; J2250; J2405; J2470; J2704; J2795; J3010

== ENCOUNTER → 2024-08-13 08:14 | Outpatient (BNV) | payer MEDICARE, MEDICAID, SELFPAY | PROVIDERS: PCP Internal Medicine; Visit Provider Surgery | DX: E66.812 Obesity, class 2 (principal); Z68.36 Body mass index [BMI] 36.0-36.9, adult; E11.9 Type 2 diabetes mellitus without complications; Z79.4 Long term (current) use of insulin | CPT/HCPCS: 43659; 43775; 99024 ==

== ENCOUNTER 2024-08-21 13:10 | Outpatient (AMB) | payer MEDICARE, MEDICAID, SELFPAY ==
--- NOTE | 2024-08-21 13:00 | A.OFFWM_ITS ---
Intake Intake Visit Reasons: TV PO LGS 08/13/24 Allergies No Known Allergies Allergy (Verified 08/13/24 06:42) PFSH Medical History (Updated 08/13/24 @ 10:00 by Gibran Palm MD) Hyperlipidemia Insomnia Stress incontinence History of venous thromboembolism Anxiety Bipolar 1 disorder Arthritis of right knee Fatty liver Asthma Hypothyroid DVT (deep venous thrombosis) Fibromyalgia HTN (hypertension) Chronic renal insufficiency Type 2 diabetes mellitus Depression Morbid obesity Chronic pulmonary embolism Sleep apnea GERD (gastroesophageal reflux disease) Elevated cholesterol Surgical History (Updated 08/13/24 @ 10:00 by Gibran Palm MD) History of right knee joint replacement History of esophagogastroduodenoscopy (EGD) H/O colonoscopy Hx of inguinal hernia repair Hx of sinus surgery Hx of shoulder surgery Hx of umbilical hernia repair Hx of arthroscopy of right knee History of bladder suspension procedure Hx of tonsillectomy H/O: hysterectomy History of ankle surgery Family History Father Diabetes Heart failure HTN (hypertension) Maternal Aunt Diabetes Paternal Grandmother Diabetes Mother HTN (hypertension) Maternal Grandfather Lung cancer Paternal Grandfather Lung cancer Paternal Aunt Breast cancer Family/Other Prostate CA Paternal Uncle Heart disease Social History Household Members: Family Household Members Other:: takes care of parents Housing: House Are you a primary rn transitional care to a significant other at home: No Do you presently have visiting nurse or other home services: No Patient Tobacco Use Status: Former Tobacco user Tobacco use type: Cigarette Years Smoked: 30 Second Hand Smoke Exposure: No Advance Directives Date on File: 11/02/23 service: No Current occupational status: retired Behavioral Health Assessment Weight Management Therapy Therapy Notes Details Subjective: PT had weight loss surgery on 08/13/2024 Weight on day of surgery was 208Lbs and recent as of today was 198Lbs. Patient denies any pain or difficulties with recovery and reports she is tolerating the liquid diet well. Mood has been stable, feeling happy and comfortable on her skin beside some stress due to ongoing family problems. Her parents, causing who had surgery and her best friends have been very supportive. Denies hunger but has experienced some food thoughts. Objective: The patient presents for a behavioral health post-operative follow-up visit. A guided emotional check-in was conducted to assess her current functioning, recovery, mood, and emotional state. Psychoeducation was provided on the emotional and psychological adjustments commonly experienced after bariatric surgery. We also focused on distinguishing between hunger and cravings or food thoughts, exploring possible reasons for these experiences, and strategies to work on her mindset. Emphasis was placed on becoming mindful of her physical and mental needs during these times while staying on track. The PHQ-9 was administered to screen for symptoms of depression. The importance of adhering to the Weight Management Program (WMP) providers' instructions was emphasized, including the pace of drinking and following the meal and exercise plan. Tips and recommendations for long-term success were also discussed. Program resources were provided, and the patient was invited to join our Facebook group to stay informed about ongoing events and activities. Assessment/Response: * Mental status: WNL * Risk reported/identified: None Food/Weight/Diet Expectations of change PT started the program on 05/27/2024 at 237Lbs, her most recent weight as if 06/30/2024 was 225Lbs. The initial goal was to lose 10% of her weight before surgery, which is about 24 lbs. Ultimate weight goal: 233 lbs. before surgery (she achieved this already). Her goal is to be under 160 lbs. post-op. PT is implementing the following: Current meal plan: the goal of to drink 40-50oz at day - including 2 protein shakes. Exercise plan: cleared by Dr Avendano yesterday to start Bicycle for 200 do at week. Scale: Yes Communication with provider: daily since surgery. Most likely Tuesdays from now on. Questionnaires PHQ-9 Over the last 2 weeks, how often have you been bothered by any of the following problems? 1. Little interest or pleasure in doing things: not at all 2. Feeling down, depressed, or hopeless: not at all 3. Trouble falling or staying asleep, or sleeping too much: not at all 4. Feeling tired or having little energy: not at all 5. Poor appetite or overeating: not at all 6. Feeling bad about yourself - or that you are a failure or have let yourself or your family down: not at all 7. Trouble concentrating on things, such as reading the newspaper or watching television: not at all 8. Moving or speaking so slowly that other people could have noticed. Or the opposite - being so fidgety or restless that you have been moving around a lot more than usual: not at all 9. Thoughts that you would be better off or of hurting yourself in some way: not at all Total score: 0 Depression Screening Interpretation: Negative Depression Screening Done: Yes 68093 - PHQ-9 Billing: Yes Source: Developed by Drs. Hudson Montalvo, Barbara Qureshi, Tomasz Florence and colleagues, with an educational angelica from [employer] Assessment & Plan Assessment & Plan (1) Bipolar 1 disorder: Code(s): F31.9 - Bipolar disorder, unspecified (2) Anxiety: Code(s): F41.9 - Anxiety disorder, unspecified Plan No safety concerns or issues were identified that would necessitate behavioral health monitoring. The patient declined further visits but is aware of the available behavioral health support if needed in the future. Telehealth Telehealth Telehealth Platform: [employer] Location of provider rendering services: other (Home office. [place], [place]) Location of patient: address on file Patient Identification confirmed using: Name, : Yes Telehealth method: video Patient verbally consented to treatment: Yes Patient verbally consented to billing insurance company: Yes Patient informed of any privacy concerns related to visit: Yes Minutes spent on Phone/Video with Pt.: 35 Coding Level of Care Code Established Pt Tele Psytx 30 mins (29438) Patient Type Established Diagnoses Bipolar 1 disorder F31.9 Anxiety F41.9 Additional Codes PHQ-9 - 54707 - PHQ-9 Billing: Yes ([id number]) Time Spent (min) 35
--- OUTSIDE RECORDS SUMMARY | 2024-08-21 14:00 | XMS_ITS | Encounter Summary ---
Author Organization [facility] Address [address] [address] Phone Care Team Providers Care Die Assembler Name Role Phone Janak Greer MD Primary Care Provider [phone] Encounter Details Date Type Department Care Team (Late Contact Info) Description 08/19/2024 Orders Only [facility] [address] [place] [address] [place], [place] [address] [place] [address] Stage 3b chronic kidney disease (HCC) (Primary Dx); Type 2 diabetes mellitus with diabetic chronic kidney disease (HCC); Other iron deficiency anemia; Persistent proteinuria Social History Tobacco Use Types Packs/Day Years [...] Visit [facility] [address] [place] [address] Kelechi Moran MD [address] [place] [address] Scheduled Orders Name Type Priority Associated Diagnoses Orde r Schedule CBC and Differential Lab Routine Stage 3b chronic kidney disease (HCC) Type 2 diabetes mellitus with diabetic chronic kidney disease (HCC) Other iron deficiency anemia Persistent proteinuria Expected: 08/19/2024, Expires: 09/19/2025 Renal Function Panel Lab Routine Stage 3b chronic kidney disease (HCC) Type 2 diabetes mellitus with diabetic chronic kidney disease (HCC) Other iron deficiency anemia Persistent proteinuria Expected: 08/19/2024, Expires: 09/19/2025 Urine Albumin / Creatinine Ratio Lab Routine Stage 3b chronic kidney disease (HCC) Type 2 diabetes mellitus with diabetic chronic kidney disease (HCC) Other iron deficiency anemia Persistent proteinuria Expected: 08/19/2024, Expires: 09/19/2025 documented as of this encounter Visit Diagnoses Diagnosis Stage 3b chronic kidney disease (HCC)- Primary Type 2 diabetes mellitus with diabetic chronic kidney disease (HCC) Other iron deficiency anemia Persistent proteinuria documented in this encounter Care Teams Die Assembler Relationship Specialty Start Date End Date Janak Greer MD [address] PCP - General 12/18/18 documented as of this encounter
--- OUTSIDE RECORDS SUMMARY | 2024-08-21 14:00 | XMS_ITS | Clinical Summary ---
Author Organization [facility] Address [address] [place] [address] Phone Care Team Providers Care Document Specialist Name Role Phone Janak Greer MD Primary Care Provider [phone] Allergies No known active allergies Medications apixaban [...] skin every 7 (seven) days. 4 Active omeprazole (PriLOSEC) [address] capsuleIndicatio ns:Gastroesophag eal reflux disease without esophagitis Take 1 capsule (20 mg total) by mouth 1 (one) time each day. Do not crush or chew. 90 each 2 5 04/21/19 26 Active Encounters Date Type Department Care Team Description 07/18/2024 Telephone Pulmonolgy - [address] [place] [address] Suzanna Moreno MA from Last 3 Months Surgical History Surgery [...] mellitus type 2, uncomplicated (HCC) Bipolar disorder (CMS/HCC V2 4, [facility] V28) 02/25/2020 DX:Bipolar disorder (HCC) SHAWN (obstructive sleep apnea) 02/25/2020 DX :SHAWN (obstructive sleep apnea) Severe obesity with body mas s index (BMI) of 35.0 to 39.9 with comorbidity (CMS/HCC V24, CMS/HCC V28) 02/25/2020 DX:Severe obesity with body mass index (BMI) of 35.0 to 39.9 with comorbidity ([facility]) History of pulmonary embolus (PE) 02/25/2020 DX:History of pulmonary embolus (PE) Dyspnea 02/25/2020 DX:Dyspnea Blood clotting tendency (CMS/HCC V24) DX:Blood clotting tendency (HCC) Diabetes mellitus (CMS/[facility] V 24, [facility]/HCC V28) DX:Diabetes mellitus (HCC) High blood pressure [...] 67 03/04/2024 9:17 AM EST Temperature 36.1 C (97 F) 03/04/2024 8:57 AM EST Respiratory Rate 18 03/04/2024 9:17 AM EST Oxygen Saturation 100% 03/04/2024 9:17 AM EST Inhaled Oxygen Concentration - - Weight 109 kg (240 lb) 03/04/2024 8:15 AM EST Height 162.6 cm (5' 4 ) 03/04/2024 8:15 AM EST Body Mass Index 41.2 03/04/2024 8:15 AM EST Plan of Treatment Upcoming Encounters Date Type Department Care Team (Late st Contact Info) Description 09/06/2024 10:30 AM EDT Appointment [facility] CT Scan [address] [place] [phone] 09/18/2024 10:45 AM EDT [facility] [place] [address] [place] [phone] Jessica Becerra MD [address] [facility] [address] [place] [address] Health Maintenance Due Date Last Done Comments [...] 01/29/2022 Hypertension/CHF/CAD Annual BMP Blood Test 01/29/2022 Influenza Vaccine (#1) 2024 , 2022, 10/27/2021, Additional history exists DTaP,Tdap,and Td Vaccines (2 - Td or Tdap) 11/20/2030 11/20/2020 Colorectal Cancer Screening: Colonoscopy 03/04/2034 03/04/2024 Zoster Vaccines Completed 12/28/2021, 11/17/2021 RSV Immunization Adult Patients Completed 12/09/2022 Pneumococcal Vaccine: 50+ Years Completed 09/30/2023 COVID-19 Vaccine Completed 10/19/2023, 04/2022, 10/27/2021, Additional [...] Maintenance Results * COLONOSCOPY Anesthesia - MAC; [facility] ENDOSCOPY (03/04/2024 8:56 AM EST) Anatomical Region Laterality Modality Endoscopy 03/04/2024 8:33 AM EST Impressions 03/04/2024 8:56 AM EST - Diverticulosis in the sigmoid colon. - Non-bleeding internal hemorrhoids. - The examination was otherwise normal on direct and retroflexion views. - No specimens collected. Recommendation: - Discharge patient to home. - High fiber diet. - Continue present medications. - Resume Eliquis (apixaban) at prior dose today. - Repeat colonoscopy in 10 years for surveillance. - Return to GI office as previously scheduled. Narrative 03/04/2024 8:56 AM EST [facility] GI Patient Name: Chevy Dean Procedure Date: 03/04/2024 8:33 AM Date [...] reviewing the risks and benefits, the patient was deemed in satisfactory condition to undergo the procedure. After I obtained informed consent, the scope was passed under direct vision. Throughout the procedure, the patient's blood pressure, pulse, and oxygen [...] small. The exam was otherwise without abnormality on direct and retroflexion views. Procedure Code(s): --- Professional --- 52067, Colonoscopy, flexible; diagnostic, including collection of specimen(s) by brushing or washing, when performed (separate procedure) Diagnosis Code(s): --- Professional --- Z12.11, Encounter for screening for malignant neoplasm of colon CPT copyright 2020 [employer]. All rights reserved. The codes documented in this report are preliminary and upon saas architect review may be revised to meet current compliance requirements. Yovanny Harvey MD 03/04/2024 8:56:08 AM This report has been signed electronically.Yovanny Harvey MD Number of Addenda: 0 Note Initiated On: 03/04/2024 8:33 AM Scope In: Scope Out: Endoscopy Department at [facility] - [address] [place] [phone] Procedure Note Yovanny Harvey MD - 03/04/2024 [facility] GI Patient Name: Chevy Dean Procedure Date: 03/04/2024 8:33 AM Date [...] retroflexion views. Procedure Code(s): --- Professional --- 68265, Colonoscopy, flexible; diagnostic, including collection of specimen(s) by brushing or washing,when performed (separate procedure) Diagnosis Code(s): --- Professional --- Z12.11, Encounter for screening for malignantneoplasm of colon CPT copyright 2020 [employer]. All rights reserved. The codes documented in this report are preliminary and upon saas architect reviewmay be revised to meet current compliance requirements. Yovanny Harvey MD 03/04/2024 8:56:08 AM This report has been signed electronically.Yovanny Harvey MD Number of Addenda: 0 Note Initiated On: 03/04/2024 8:33 AM Scope In: Scope Out: Endoscopy Department at [facility] - [address] [place] [phone] IMPRESSION: - Diverticulosis in the sigmoid colon. - Non-bleeding internal hemorrhoids. - The examination was otherwise normal on directand retroflexion views. - No specimens collected. Recommendation: - Discharge patient to home. - High fiber diet. - Continue present medications. - Resume Eliquis (apixaban) at prior dose today. - Repeat colonoscopy in 10 years forsurveillance. - Return to GI office as previously scheduled. Yovanny Harvey MD GI~PROCEDURE ORDERABLES Final Result from Last 3 Months or Most Recently Relevant to Health Maintenance Insurance [employer] [employer] [place] Care Teams Document Specialist Relationship Specialty Start Date End Date Janak Greer MD [address] [place] [phone] PCP - General Internal Medicine 05/26/08
--- OUTSIDE RECORDS SUMMARY | 2024-08-21 14:00 | XMS_ITS | Encounter Summary ---
Author Organization [facility] Address [address] [place] [address] Care Team Providers Care Computer Animator Name Role Phone Janak Greer MD Primary Care Provider Encounter Details Date Type Department Care Team (Late st Contact Info) Description 06/06/2023 Scanned Document [address] [place] [phone] Provider, Generic Social History Tobacco Use Types [...] filedocumented in this encounter Care Teams Computer Animator Relationship Specialty Start Date End Date Janak Greer MD [address] [place] [address] PCP - General Internal Medicine 08/09/22 documented as of this encounter
--- OUTSIDE RECORDS SUMMARY | 2024-08-21 14:01 | XMS_ITS | Data Portability ---
Author Organization [place] - [facility], Allergy Address [address] [address] Care Team Providers Care Atomic Process Engineer Name Role Phone LELA ANUSHA Primary Care Provider Assessment Encounter Date Assessment [...] things have worsened since her CT scan. [email or web address] Not available 07/24/2023 12:39:59 08/10/2023 08/10/2023 The patient is doing well following functional endoscopic sinus surgery. Pathology consistent with sinonasal papilloma, inverted pattern. Instruction for saline sinus irrigation 2-3 times daily with intermittent use of saline nasal spray were given. The patient will follow up in 1-2 weeks as scheduled for reevaluation. [email or web address] Not available 08/10/2023 16:45:14 09/28/2023 09/28/2023 Patient [...] 3 times per week and resume Flonase. [email or web address] Not available 09/28/2023 12:06:34 01/08/2024 01/08/2024 63 [...] 13:06:[address], sinuses, w/o contrast 2023 [facility], [address] [place], [address], 4 14:09:46 Medication Orders doxycyclin e hyclate 100 mg capsule 2023 [facility] #[id number], [phone] [place], [address], 4 11:38:28 fluticason e propionate 50 mcg/actuat ion nasal spray,susp ension 2023 024 [facility] #[id number], [phone] [place], [address], 4 12:08:06 Patient TargetsNo targets recorded. Patient Instructions Encounter Date Encounter Id Patient Instructions Last Modified By Organization Details Last Modified Time 07/24/2023 [id number] educational handout [facility] Not available 07/24/2023 12:43:51 Reason for Referral None Reported. Results Created Date Observation Date Name Description Value Unit Range Abnormal Flag Note LastModifiedBy Organization Detail LastModifiedTime 07/24/[address], sinus es, w/o contr ast No observ ation record ed. [facility] [address], [address], 07/24/2023 12:41:01 07/26/19 24 audio gram No observ ation record ed. [facility] Not Available 2023 12:46:02 08/08/19 24 07/24/2023 CT, sinus es, w/o contr ast No observ ation record ed. [facility] [address], [address], 08/08/2023 22:58:50 Result Notes None recorded. Problems Name Problem SNOMED Code Status Onset Date Resolution Date Notes Provider Name and Address Organization Details Recorded Time Benign paroxysma l positiona l vertigo 300384165 Active 2020 Benign paroxysma l vertigo, unspecifi ed ear; Note: Date Diagnosed : 04/14/2020 10:02 AM (H81.10) Not Available [facility] 4 02:26:19 Otorrhagi a of right ear 75446955740 68831 Active 2022 Otorrhagi a, right ear; Note: Date Diagnosed : 06/14/2022 2:51 PM (H92.21) Not Available [facility] 4 02:26:40 Disturban ce of salivary secretion 66156334 Active 2021 Xerostomi a; Note: Date Diagnosed : 09/30/2021 11:57 AM (K11.7) Not Available [facility] 4 02:26:26 Bilateral temporoma ndibular joint pain 09867760953 563784 Active 2022 Arthralgi a of bilateral temporoma ndibular joint; Note: Date Diagnosed : 05/10/2022 2:35 PM (M26.623) Arthral justin of bilateral temporoma ndibular joint; Note: Date Diagnosed : 04/14/2020 10:02 AM (M26.623) ; Start Date : Not Available [facility] 4 02:26:33 Gastroeso phageal reflux disease without esophagit is 264038341 Active 2021 Gastro-es ophageal reflux disease without esophagit is; Note: Date Diagnosed : 04/15/2021 10:11 AM (K21.9) Not Available [facility] 4 02:26:18 Sensorine ural hearing loss of bilateral ears 683915431 Active 2020 Sensorine ural hearing loss, bilateral ; Note: Date Diagnosed : 04/14/2020 10:03 AM (H90.3) Not Available [facility] 4 02:26:31 Allergic rhinitis caused by pollen 57280857 Active 2021 Allergic rhinitis due to pollen; Note: Date Diagnosed : 09/30/2021 11:57 AM (J30.1) Not Available [facility] 4 02:26:46 Bleeding from nose 068196281 Active 2022 Epistaxis ; Note: Date Diagnosed : 05/10/2022 2:35 PM (R04.0) Not Available [facility] 4 02:26:44 Chronic sinusitis 15675658 Active 2023 ELENITA KANG MD [address] [place] [address], [place], [address] , [facility] - [facility] 4 21:08:07 Deviated nasal septum 595308885 Active 2023 ELENITA KANG MD [address] [facility],[place] [address], [place], [address] , [facility] - [facility] 4 21:08:13 Abnormal auditory perceptio n 03875241 Active 2023 ELENITA KANG MD [address] [facility],[place] [address], [place], [address] , [facility] - [facility] 4 12:02:38 Chronic left maxillary sinusitis 54770474897 563093 Active 2023 ELENITA KANG MD [address] [facility],[place] [address], [place], [address] , [facility] 4 14:04:57 Obstructi ve sleep apnea syndrome 26946349 Active 2023 ELENITA KANG MD [address] [facility],[place] [address], [place], [address] , [facility] 4 14:22:09 Chronic maxillary sinusitis 52152938 Active 2023 Chronic maxillary sinusitis ; Note: Date Diagnosed : 06/12/2023 11:15 AM (J32.0) Not Available [facility] 4 02:26:21 Acute maxillary sinusitis 34332511 Active 2023 Acute maxillary sinusitis , unspecifi ed; Note: Date Diagnosed : 04/25/2023 11:27 AM (J01.00) Not Available [facility] 4 02:26:24 Problem Notes None recorded. Procedures Surgical History Date Name Laterality Status Provider Name and Address Organization Details Recorded Time 01/08/20 24 NasalEndoscopy_DP completed MARVIN CHEUNG PA-C [address] [facility],[place] [address], [place], [address], [facility] 01/08/2024 12:45:15 09/28/19 JMSNasal/Sinus Endoscopy-PRIOR surgical cavities completed ELENITA MONTANO MD [address] [facility],[place] [address], [place], [address], [facility] - [facility] 09/28/2023 12:07:20 08/25/19 24 JMSNasal/Sinus Endoscopy-DEBRIDE MENT completed ELENITA MONTANO MD [address] [facility],[address], [address], [facility] - [facility] 08/25/2023 14:20:40 08/10/19 24 JMSNasal/Sinus Endoscopy-DEBRIDE MENT completed RAMYA BHATTI PA-C [address] [facility],[place] [address], [place], [address], [facility] - [facility] 08/10/2023 16:43:40 08/08/19 24 ENDOSCOPY, NASAL/SINUS W/ PARTIAL ETHMOIDECTOMY (SURG) completed Nacho Aldana [place] - [facility] 08/11/2023 13:52:45 07/24/19 24 JMSNasal/Sinus Endoscopy completed ELENITA MONTANO MD [address] [facility],[address], [address], [facility] - [facility] 07/24/2023 12:01:33 07/24/19 24 SRT & Tymps - 44599 & 68202 completed Leah Donaldson [facility] 07/24/2023 12:28:03 Imaging Results None recorded. Procedure Notes None recorded. Medical Equipment None [...] mg tablet 09/30 completed Medicati on ID: [id number] B rand Name: furosemi de Send Method: E-Prescr ibed Sub s Allowed: subs OK Medic ationGen ericName : furosemi de Not Available Not Available Not Available Miralax 17 gram/dose oral powder 09/30 completed Medicati on ID: [id number] B rand Name: Miralax Send Method: E-Prescr [...] pack Take 06/11 completed Medicati on ID: [id number] P rescribe d By Name: Joleen Cruz MD Brand Name: Medrol (Jeff) Se nd Method: E-Prescr ibed Sub s Allowed: subs OK Speci al Instruct ion: take as instruct ed Medic ationGen ericName : Medrol (Jeff) Not Available Not Available Not Available prednison e 20 mg tablet by mouth 2023 active Medicati on ID: [id number] B rand Name: predniso ne Send Method: [...] tended release 09/30 completed Medicati on ID: [id number] B rand Name: Tylenol Arthriti s Pain [...] mg tablet 09/30 completed Medicati on ID: [id number] B rand Name: oxcarbaz epine Se nd Method: E-Prescr ibed Sub s Allowed: subs OK Medic ationGen ericName : oxcarbaz epine Not Available Not Available Not Available acetamino phen 300 mg-codein e 30 mg tablet active Medicati on ID: 279784 B rand Name: acetamin ophen-co deine Se [...] mcg tablet 09/30 completed Medicati on ID: 125449 B rand Name: levothyr oxine Se nd Method: E-Prescr ibed Sub s Allowed: subs OK Medic ationGen ericName : levothyr oxine Not Available Not Available Not Available hydrocort isone 2.5 % topical cream with perineal applicato r 06/11 completed Medicati on ID: 245296 B rand Name: hydrocor tisone S end [...] 100 mg tablet active Medicati on ID: 324115 B rand Name: trazodon e Send Method: E-Prescr ibed Sub s Allowed: subs OK Medic ationGen ericName : trazodon e Medica tion ID: [id number] B rand Name: trazodon e Send Method: E-Prescr ibed Sub s Allowed: subs OK Medic ationGen ericName : trazodon e Not Available Not Available Not Available benzonata te 100 mg capsule TAKE 1 CAPSULE BY MOUTH THREE TIMES A DAY FOR 3 DAYS active Not Available Not Available No t Available levothyro xine 50 mcg tablet active Medicati on ID: 617781 B rand Name: levothyr oxine Se nd Method: E-Prescr ibed Sub s Allowed: subs OK Medic ationGen ericName : levothyr oxine Not Available Not Available Not Available cephalexi n 500 mg capsule TAKE 1 CAPSULE BY MOUTH FOUR TIMES A DAY active Not Available Not Available No t Available tacrolimu s 0.1 % topical ointment 06/11 completed Medicati on ID: 415762 B rand Name: tacrolim us Send Method: [...] mg tablet 06/11 completed Medicati on ID: 557107 B rand Name: hydroxyz ine HCl Send [...] nasal spray 09/30 completed Medicati on ID: [id number] B rand Name: azelasti ne Send Method: [...] unit) tablet 09/30 completed Medicati on ID: [id number] B rand Name: Vitamin D3 Send Method: E-Prescr ibed Sub s Allowed: subs OK Medic Wilber ericName : Vitamin D3 Not Available Not [...] as directed 2022 active Medicati on ID: [id number] D uration Value: 14 Brand Name: Ciprodex Send Method: E-Prescr ibed Sub s Allowed: subs OK Medic Wilber ericName : Ciprodex Not Available Not Available Not Available escitalop brittany 5 mg tablet TAKE 1 TABLET BY MOUTH ONCE DAILY. TAKE TOGETHER WITH 20 MG FOR TOTAL OF 25 MG PER DAY active Not Available Not Available No t Available Cinnamon 500 mg capsule 09/30 completed Medicati on ID: [id number] B rand Name: Cinnamon Send Method: E-Prescr ibed Sub s Allowed: subs OK Medic [facility] eric[facility] : Cinnamon Not Available Not [...] mcg tablet 09/30 completed Medicati on ID: 229383 B rand Name: Centrum Silver Women Se [...] ous pen injector active Medicati on ID: [id number] B rand Name: Mounjaro Send Method: E-Prescr [...] Updated DateTime 07/24/2023 162.56 cm 43.9 kg/m2 267927.65 g Jacob Bishop [place] - [facility] 07/24/2023 11:37:39 Date Recorded Body height Body mass index (BMI) Body weight Provider Name and Address Organization Details Last Updated DateTime 08/10/2023 162.56 cm 43.9 kg/m2 024195.65 g Deborah Saldivaros [place] - [facility] 08/10/2023 15:56:40 Date Recorded Body height Provider Name an d Address Organization Details Last Updated DateTime 08/25/2023 162.56 cm Jacob Bishop [place] [facility] 08/25/2023 14:03:50 Date Recorded Body height Body mass index (BMI) Body weight Provider Name and Address Organization Details Last Updated DateTime 09/28/2023 162.56 cm 43.4 kg/m2 227788.87 g Jacob Bishop [place] - [facility] 09/28/2023 11:59:23 Social History None recorded. Functional Status None [...] Note [id number] ELENITA KANG MD [facility] [address] [address] 07/24/2023 10:58:36 07/24/2023 13:19:59 Chronic sinusitis 48796089 J32.9 J32.8 Because of increased symptoms on [...] handout was given Deviated nasal septum 12 6377203 J34.2 Abnormal a uditory perception 04934960 H93.293 Tymp and SRT reviewedA speech awareness threshold test, tympanomet ry, and distortion product otoacousti c emission test were performed. Results are as follows: Speech Awareness/ Head Porter Test: Right Ear:10 dB(HL) Left Ear:10 dB(HL) Tympanomet ry: Right Ear:Type Ad Left Ear:Type A [id number] RAMYA BHATTI PA-C [facility] [address] [address] 08/10/2023 15:42:46 08/10/2023 16:16:37 Chronic sinusitis 31536237 J32.8 Postoperative visit 1836 65846 Z48.89 [id number] ELENITA KANG MD [facility] [address] [address] 08/25/2023 13:59:35 08/25/2023 14:34:07 Chronic left maxillary sinusitis 4893135545 3381285 J32.0 No residual infection. Debridemen t performed. Suggest gentle irrigation to avoid ear symptoms. Burning mouth has improved. She can take some probiotics . Follow-up 4 weeks. Abnormal a uditory perception 50801918 H93.293 No fluid Obstructiv e sleep apnea syndrome 81838065 G47.33 Resume CPAP [id number] ELENITA KANG MD [facility] [address] [address] 09/28/2023 11:30:17 09/28/2023 12:14:30 Chronic left maxillary sinusitis 7801909765 9148337 J32.0 No residual infection. Debridemen t performed. Suggest gentle irrigation to avoid ear symptoms. Burning mouth has improved. She can take some probiotics . Follow-up 4 weeks. Deviated nasal septum 12 7788394 J34.2 [id number] MARVIN CHEUNG PA-C [facility] [address] [place] [address] 01/08/2024 10:59:57 01/08/2024 11:42:28 Deviated nasal septum 744051686 J34.2 right Chronic le ft maxillary sinusitis 7945337969 7502333 J32.0 Health Concerns Section Related Observation LastModified by Organization Detai ls LastModified Time None Recorded Concern Status LastModified by Organization Details LastModified Time None Recorded Advance Directives Directive None Recorded Payers Insurance Date Sequence Insurance Name Policy Number Policy Azul Covered Member ID Azul Member ID Guarantor Name 05/07/2024 2 [place] [facility] Esperanza Dean [id number] Esperanza Dean 04/16/2024 1 [facility] [employer] [id number] Esperanza Dean [id number] Esperanza Dean Notes Date Note Type Note Provider Name and Address Organization Details Recorded Time 07/24/2023 text/html No change with prednisone or abx. Still has facial pressure and ear fullness L > R prior [id number] with chronic left maxillary sinusitis. Symptoms started [...] sinuses, left sigifredo bullosa and right deviated septum. In light of these findings and still no purulent drainage from the nose, recommend higher dose of steroids. Course of prednisone prescribed today. Also recommend daily nasal saline irrigation's. Marcos med bottle was provided today and we reviewed instructions on use . Esperanza should follow-up with one of my colleagues in six weeks. If still no improvement at that point would likely benefit from limited endoscopic sinus surgery. ELENITA MONTANO MD [address] [place] [address], [place], [address], [place] - [facility] 07/24/2023 12:45:01 08/10/2023 text/html 62-year-old fema le presents status post left maxillary antrostomy with sigifredo bullosa resection on 08/08/[address] Montano. She is doing well postoperatively. Currently on amoxicillin. MIKE MONTOYA MD 100 [facility],[address], [address], [facility] 08/10/2023 17:13:02 08/25/2023 text/html Patient seen following endoscopic surgery she is August 07. She still has some left facial pressure, ear fullness and nasal discharge. No HL. Smell and taste ok. Been irrigating twice daily and using saline solution 3-4 times per day. Finished abx but got burning. No thrush. Holding CPAP ELENITA MONTANO MD 100 [facility],[address], [address], [facility] - [facility] 08/25/2023 14:22:37 09/28/2023 text/html Patient with chronic sinusitis status post left-sided surgery. She has a known rightward septal deviation and had mild sinus thickening on that side. We elected to proceed with left-sided surgery only. She notes significant improvement and just a little bit of congestion in the morning. ELENITA MONTANO MD [address] [facility],[address], [address], [facility] 09/28/2023 12:08:38 01/08/2024 text/html 63 year [...] offer some relief. GARRY LINK MD 100 [facility] [place], [address], [facility] 01/08/2024 21:13:08 OBGyn Episode No OBEpisode recorded.
--- OUTSIDE RECORDS SUMMARY | 2024-08-21 14:01 | XMS_ITS | Clinical Summary ---
Author Organization [facility] Address [address] [place] [address] Care Team Providers Care Clothing Sales Assistant Name Role Phone Janak Greer MD Primary Care Provider [phone] Allergies No known active allergies Medications Medication [...] 0 05/13/2019 Act kay Continuous Blood Gluc Metal Molder (FreeStyle Joseph 14 Day [place]) PABLO 0 01/29/2019 Active Continuous Blood Gluc [...] Quadrivalent) 0.5 ML ROSE MARIE Flucelvax Quad 5628-6180 (PF) 60 mcg (15 mcg x 4)/0.5 [...] ambreen lite 0 Active Continuous Blood Gluc Metal Molder (FreeStyle Joseph 14 Day [place]) PABLO FreeStyle Joseph 14 Day [place] 0 Active Lancets (freestyle) lancets FreeStyle Joseph [...] years 1-dose series) 2021 Influenza Vaccine (#1) 2024 0, 10/17/2018 Hepatitis B Vaccines Aged Out No long er eligible based on patient's age to complete this topic RSV Ped < 20 months Aged Out No longe r eligible based on patient's age to complete this topic Care Teams Clothing Sales Assistant Relationship Specialty Start Date End Date Janak Greer MD [address] [place] [address] PCP - General Internal Medicine 12/27/18
--- OUTSIDE RECORDS SUMMARY | 2024-08-21 14:01 | XMS_ITS | Patient Health Record ---
Author Organization [employer] [facility] Address [address] [address] Care Team Providers Care General Claims Agent Name Role Phone Caprice Staples Unavailable [phone] Reason For Referral No Information Medications Medication SIG (Take, Route, Frequency, Duration) Notes Start Date End Date Status Topiramate 50MG 1 ORAL twice daily; Duration: - [facility] 04/11/2013 Active metFORMIN HCl 500MG 1 ORAL four times da negro; Duration: [facility] 04/11/2013 Active Luz 0.05MG 1 patch to skin Transdermal TWICE WEEKLY [facility] 04/04/2013 Active Vitamin D3 5,000 IU 1 ORAL daily; Durati [place]: [facility] 04/11/2013 Active PriLOSEC OTC 20 MG 1 tablet Orally Once a day Active Atorvastatin Calcium 80 MG 1 tablet Oral ly Once a day Active Aspirin EC 81MG 1 ORAL daily; Durati on: - [facility] 04/11/2013 Active Abilify 2MG 1 ORAL daily; Durati on: [facility] 04/11/2013 Active Restasis 0.05 % 1 into affected eye Ophthalmic Twice a day Active Luz 0.05 MG/24HR 1 patch to skin Transdermal TWICE WEEKLY; Duration: 90 days 07/22/2014 Active LORazepam 1MG 1 ORAL three times d aily; Duration: [facility] 04/11/2013 Active glipiZIDE 5MG ORAL three times greg ly; Duration: [facility] 04/11/2013 Active Cymbalta 60MG 1 ORAL daily; Durati on: [facility] 04/11/2013 Active Problems Problem Type SNOMED Code ICD Code Onset Dates Problem Status W/U Status Risk Notes Problem Type II diabetes mellitus uncontrolled (357252595) Diabetes mellitus without mention of complication, type II or unspecified type, uncontrolled (250.02) Active confirmed Diag Problem Hyperlipidemia (10837029) Other and unspecified hyperlipidemia (272.4) Active confirmed Major Problem Menopausal symptom (96153987) Symptomatic menopausal or female climacteric states (627.2) Active confirmed Diag Problem Muscle pain (03936870) Unspecified myalgia and myositis (729.1) Active confirmed Major Problem Gynecological examination normal (366771870891761) Routine gynecological examination (V72.31) Active confirmed Major Plan Of Treatment Pending Test Test Name Order Date MAMMOGRAM, SCREENING 07/22/2014 Insurance Providers Payer Name Payer Address Payer Phone Subscriber Number Group Number Insured Name Patient Relationship to Insured Coverage Start Date Coverage End Date [employer] MED[employer]ARE ADV[employer]AGE [facility] [address] [place] [id number] CHEVY WOLF Self - patient is the [...]
--- OUTSIDE RECORDS SUMMARY | 2024-08-21 14:01 | XMS_ITS ---
Author Name [facility] Organization Unknown History of Medication Use Medication Directions Dispensed Refills Start Date End Date Status lidocaine (PF) 10 mg/mL (1 %) injection solution Take 10 mL by injection route. 3 02/22/19 24 completed cephalexin (KEFLEX) 500 MG capsule Take 1 capsule (500 mg total) by mouth 4 (four) times a day. 3 06/05/19 24 aborted oxyCODONE (ROXICODONE) 5 MG immediate release tablet Take 1-2 tablets (5-10 mg total) by mouth every 4 (four) hours as needed for moderate pain or severe pain. Max Daily Amount: 60 mg 3 06/05/19 24 active lidocaine HCl 10 mg/mL (1 %) injection solution Take 5 mL by injection route. 3 02/22/19 24 completed Wixela Inhub 250 mcg-50 mcg/dose powder for inhalation 1 inhalation twice a day by inhalation route. 3 active lidocaine (PF) 100 mg/5 mL (2 %) injection syringe Take 1 mL by injection route. 3 03/22/19 24 completed Kenalog 40 mg/mL suspension for injection Take 1.5 mL by injection route. 3 12/21/19 23 completed famotidine 20 mg tablet TAKE 1 TABLET BY MOUTH TWICE A DAY 04/19/19 24 completed methylprednisolone 4 mg tablets in a dose pack TAKE 6 TABLETS ON DAY 1 DIRECTED ON PACKAGE AND DECREASE BY 1 TAB EACH DAY FOR A TOTAL OF 6 DAYS 03/22/19 24 active clobetasol 0.05 % topical cream 02/22/19 24 completed clobetasol 0.05 % topical cream 02/22/19 24 completed famotidine 20 mg tablet TAKE 1 TABLET BY MOUTH TWICE A DAY 02/22/19 24 completed Mounjaro 2.5 mg/0.5 mL subcutaneous pen injector 02/22/19 24 completed tacrolimus 0.1 % topical ointment APPLY TWICE A DAY TO AREAS OF DERMATITIS ON LEGS. REPEAT NEEDED 02/22/19 24 completed tacrolimus 0.1 % topical ointment APPLY TWICE A DAY TO AREAS OF DERMATITIS ON LEGS. REPEAT NEEDED 02/22/19 24 active trazodone 150 mg tablet TAKE 1 TABLET BY MOUTH AT BEDTIME NEEDED FOR INSOMNIA. 02/22/19 24 active Victoza 2-Jeff 0.6 mg/0.1 mL (18 mg/3 mL) subcutaneous pen injector INJECT 1.8 MG UNDER THE SKIN ONCE DAILY 02/22/19 24 active clotrimazole 1 % topical cream 12/30/19 23 active doxycycline hyclate 100 mg capsule TAKE 1 CAPSULE BY MOUTH TWICE A DAY FOR 10 DAYS 12/21/19 23 completed hydroxyzine HCl 25 mg tablet TAKE 1 TABLET BY MOUTH TWICE A DAY NEEDED FOR ANXIETY 12/21/19 23 completed oxycodone 5 mg tablet TAKE 1 TO 2 TABLETS BY MOUTH EVERY 4 HOURS NEEDED FOR MODERATE OR SEVERE PAIN MAX DAILY: 60 MG 12/21/19 23 completed prednisone 20 mg tablet TAKE 2 TABLETS BY MOUTH DAILY X 3 DAYS 09/16/19 23 completed amoxicillin 875 mg-potassium clavulanate 125 mg tablet TAKE 1 TABLET BY MOUTH EVERY 12 HOURS FOR 10 DAYS 06/21/19 23 completed amoxicillin 875 mg tablet TAKE 1 TABLET BY MOUTH TWICE A DAY FOR 7 DAYS active benzonatate 100 mg capsule TAKE 1 CAPSULE BY MOUTH THREE TIMES A DAY FOR 3 DAYS active benzonatate 100 mg capsule TAKE 1 CAPSULE BY MOUTH THREE TIMES A DAY FOR 3 DAYS active buspirone 15 mg tablet TAKE 1 TABLET BY MOUTH TWICE A DAY active carvedilol 3.125 mg tablet TAKE 1 TABLET BY MOUTH 2 TIMES A DAY WITH 6.25 MG DOSE active clonazepam 1 mg tablet TAKE 1 TABLET BY ORAL ROUTE 2 TIMES PER DAY (MAY TAKE THIRD DOSE FOR SEVERE ANXIETY). active clonazepam 1 mg tablet TAKE 1 TABLET BY ORAL ROUTE 2 TIMES PER DAY (MAY TAKE THIRD DOSE FOR SEVERE ANXIETY). active codeine 10 mg-guaifenesin 100 mg/5 mL oral liquid TAKE 10 ML BY MOUTH EVERY 4 HOURS FOR 5 DAYS NEEDED active codeine 10 mg-guaifenesin 100 mg/5 mL oral liquid TAKE 10 ML BY MOUTH EVERY 4 HOURS FOR 5 DAYS NEEDED active doxycycline hyclate 100 mg tablet TAKE 1 TABLET BY MOUTH TWICE A DAY FOR 10 DAYS active escitalopram 20 mg tablet TAKE 1 TABLET BY MOUTH EVERY DAY active Mounjaro 5 mg/0.5 mL subcutaneous pen injector INJECT THE CONTENTS OF 1 PEN SUBCUTANEOUSLY EVERY WEEK. ROTATE INJECTION SITES active omeprazole 20 mg capsule,delayed release TAKE 1 CAPSULE BY MOUTH EVERY DAY IN THE MORNING active oxcarbazepine 600 mg tablet TAKE 1 TABLET BY MOUTH TWICE A DAY active Restasis 0.05 % eye drops in a dropperette INSTILL DROP INTO BOTH EYES 2 TIMES A DAY. active Wixela Inhub 250 mcg-50 mcg/dose powder for inhalation INHALE 1 PUFF BY MOUTH TWICE A DAY active No known medications No known medications active Problems Problem Status Onset Date Problem Type [...] - Pfiz er 12+ (Purple Cap) [facility] Encounters Encounter Type Encounter Reason Primary Diagnosis Location Date Ambulatory [facility] 01/24/2024 Ambulatory [facility] 01/11/2024 Ambulatory [facility] 09/27/2023 Ambulatory [facility] 09/26/2023 Ambulatory [facility] 09/26/2023 Ambulatory [facility] 09/20/2023 Ambulatory [facility] 09/15/2023 Ambulatory [facility] 06/06/2023 Ambulatory [facility] 06/01/2023 Ambulatory [facility] 05/29/2023 Ambulatory [facility] 05/26/2023 Ambulatory [facility] 05/26/2023 Ambulatory [facility] 05/26/2023 Ambulatory [facility] 05/08/2023 Ambulatory [facility] 05/04/2023 Ambulatory [facility] 05/02/2023 Ambulatory Other specified disorders of synovium and tendon, other site Other specified disorders of synovium and tendon, other site [facility] 05/01/2023 Ambulatory [facility] [place] 04/27/2023 Ambulatory [facility] 04/19/2023 Ambulatory [facility] [place] 04/19/2023 Ambulatory [facility] [place] 04/18/2023 Ambulatory [facility] 03/30/2023 Ambulatory [facility] 03/22/2023 Ambulatory [facility] 03/22/2023 Ambulatory [facility] 02/21/2023 Ambulatory [facility] 01/27/2023 Ambulatory [facility] 01/27/2023 Ambulatory Synovitis and tenosynovitis, unspecified Synovitis and tenosynovitis, unspecified [facility] 01/10/2023 Ambulatory [facility] 01/10/2023 Ambulatory [facility] 01/04/2023 Ambulatory [facility] 01/03/2023 Ambulatory [facility] [place] 01/03/2023 Ambulatory [facility] 12/23/2022 Ambulatory [facility] 12/21/2022 Ambulatory [facility] 12/19/2022 Ambulatory Other specified disorders of synovium and tendon, other site Other specified disorders of synovium and tendon, other site [facility] 12/06/2022 Ambulatory [facility] 12/05/2022 Ambulatory Encounter for other specified aftercare Encounter for other specified aftercare [facility] 11/22/2022 Ambulatory Synovitis and tenosynovitis, unspecified Synovitis and tenosynovitis, unspecified [facility] 11/07/2022 Ambulatory Other specified disorders of synovium and tendon, other site Other specified disorders of synovium and tendon, other site [facility] 10/28/2022 Ambulatory Synovitis and tenosynovitis, unspecified Synovitis and tenosynovitis, unspecified [facility] 10/14/2022 Ambulatory Synovitis and tenosynovitis, unspecified Synovitis and tenosynovitis, unspecified [facility] 10/04/2022 Ambulatory Other specified disorders of synovium and tendon, other site Other specified disorders of synovium and tendon, other site [facility] 09/30/2022 Ambulatory [facility] 09/15/2022 Ambulatory [facility] 09/15/2022 Ambulatory [facility] 09/15/2022 Ambulatory [facility] 09/15/2022 Ambulatory [facility] 09/15/2022 Ambulatory [facility] 09/15/2022 Ambulatory [facility] 09/13/2022 Ambulatory [facility] 09/13/2022 Ambulatory Other specified disorders of synovium and tendon, other site [facility] 09/12/2022 Ambulatory Congenital pes cavus, left foot [facility] 09/12/2022 Ambulatory [facility] 08/30/2022 Ambulatory [facility] 08/24/2022 Ambulatory [facility] 08/15/2022 Ambulatory Congenital pes cavus, left foot [facility] 08/09/2022 Ambulatory [facility] 08/08/2022 Ambulatory [facility] 08/03/2022 Ambulatory Carpal tunnel syndrome, left upper limb [facility] 07/28/2022 Ambulatory [facility] 07/27/2022 Ambulatory [facility] 06/29/2022 Ambulatory [facility] 06/22/2022 Ambulatory [facility] 06/21/2022 Ambulatory [facility] 06/20/2022 Ambulatory [facility] 06/13/2022 Ambulatory [facility] 06/09/2022 Ambulatory [facility] 06/08/2022 Ambulatory [facility] 06/07/2022 Ambulatory [facility] 06/07/2022 Ambulatory [facility] 06/07/2022 Ambulatory [facility] 05/11/2022 Care Team Organization Name Specialty Phone Email Start Date End Da te [facility] ANUSHA VOGEL [facility] 09/12/2022 05/01/2024 [facility] 08/09/2022 08/09/2022 [facility] 07/28/2022 05/01/2024 [facility] 07/25/2022 07/25/2022
== END 2024-08-21 13:50 | disposition home or self-care (01) ==
LOC: HO.HBST 13:10
PROVIDERS: PCP Internal Medicine; Visit Provider Counselor Mental Health
DX: F31.9 Bipolar disorder, unspecified (principal); F41.9 Anxiety disorder, unspecified
CPT/HCPCS: 90832

== ENCOUNTER 2024-08-22 15:07 | Outpatient (AMB) | payer MEDICARE, MEDICAID, SELFPAY ==
--- NOTE | 2024-08-22 15:11 | A.OFFVIS_ITS ---
VS Expanded 08/22/24 15:19 BP 146/65 H Blood Pressure Location Rt brachial Blood Pressure Position Sitting Pulse 67 Pulse Source Pulse Oximeter Temp 96.6 F L Temperature Source Temporal Artery Scan Pulse Oximetry 95 Oxygen Delivery Method Room Air Height 5 ft 4 in Weight 197 lb BMI 33.8 Body Fat % 40.0 Body Fat Mass 78.8 Fat Free Mass 118.2 Visceral Fat Rating 11.0 Body Water % 42.4 Body Water Mass 83.6 Muscle Mass/Score 112.2 Basal Metabolic Rate/Score 1,616 Intake Visit Reasons: (OV) PO LSG 08/13/24 Allergies No Known Allergies Allergy (Verified 08/22/24 15:14) HPI Comments Details: This?a?63?yo female who is s/p LSG without hiatal hernia repair on?08/13/2024. Presents for 9 day post op visit. Weight today is 197 pounds, with a BMI of 33.8. There has been a 40.3 pound weight loss,(initial weight 237.3 pounds) since starting the program on 05/27/2024 reflecting a 16.9 % total body weight loss and a weight loss of 13.5 pounds since surgery (operative weight 210.5 pounds) reflecting a 6.4 % TBWL since surgery. No complaints of nausea, emesis, abdominal pain or reflux. States that she does wake up at 05:00 and feels somewhat lightheaded in the morning. She checks her blood pressure as she does every morning. She is only to taking her carvedilol if necessary based on parameters given to her by Dr. Palm. Present meal plan includes: Premier protein 2 scoops at 10-2, 2-4 Premier protein 1 scoop at 6-8. Drinking a proximally 40-50 oz of fluids ? Exercise routine includes: She has just resumed her stationary bike [facility] Medical History (Updated 08/22/24 @ 00:01 by Lily Thompson) Greater trochanteric bursitis of left hip Extensor carpi ulnaris tendinitis Right knee pain Hyperlipidemia Insomnia Stress incontinence History of venous thromboembolism Anxiety Bipolar 1 disorder Arthritis of right knee Fatty liver Asthma Hypothyroid DVT (deep venous thrombosis) Fibromyalgia HTN (hypertension) Chronic renal insufficiency Type 2 diabetes mellitus Depression Morbid obesity Chronic pulmonary embolism Sleep apnea GERD (gastroesophageal reflux disease) Elevated cholesterol Surgical History S/P laparoscopic sleeve gastrectomy Status post total right knee replacement History of right knee joint replacement History of esophagogastroduodenoscopy (EGD) H/O colonoscopy Hx of inguinal hernia repair Hx of sinus surgery Hx of shoulder surgery Hx of umbilical hernia repair Hx of arthroscopy of right knee History of bladder suspension procedure Hx of tonsillectomy H/O: hysterectomy History of ankle surgery Family History Father Diabetes Heart failure HTN (hypertension) Maternal Aunt Diabetes Paternal Grandmother Diabetes Mother HTN (hypertension) Maternal Grandfather Lung cancer Paternal Grandfather Lung cancer Paternal Aunt Breast cancer Family/Other Prostate CA Paternal Uncle Heart disease Social History Household Members: Family Household Members Other:: takes care of parents Housing: House Are you a primary care partner to a significant other at home: No Do you presently have visiting nurse or other home services: No Patient Tobacco Use Status: Former Tobacco user Tobacco use type: Cigarette Years Smoked: 30 Second Hand Smoke Exposure: No Advance Directives Date on File: 11/02/23 service: No Current occupational status: retired Physical Exam GI Inspection: Yes incision (Clean, dry, intact.) Assessment & Plan Assessment & Plan (1) S/P laparoscopic sleeve gastrectomy: Code(s): Z98.84 - Bariatric surgery status Category: Surgical Plan: POD 9 s/p LSG on 08/13/[address] Palm Be sure to text Dr Palm exactly 1 week after surgery your weight from your home scale so he can adjust your meal plan. Continue meal plan until f/u w [facility] in 2 weeks May shower, no submersion in bath for another week Continue abdominal binder with activity and exercise for the next 2 weeks. Exercise prior to surgery was stationary bike and may resume No abdominal exercises for 6 weeks post operatively Will be emailed link to post op video for review Reminded of the pace of drinking, 2 mL per minute, 1 oz/15 min. With regard to her feelings of lightheadedness in the morning, try to increase fluids as she is able. She does state that she does not like the thickness of the 2 scoop Premier protein shake. She will discuss this with Dr. Palm and adjustments will be made. She does continue to check her blood pressure and takes her medication only as indicated based upon parameters given to her prior to surgery. Overall she states that she feels great
--- OUTSIDE RECORDS SUMMARY | 2024-08-22 15:11 | XMS_ITS | Clinical Summary ---
Author Organization [facility] Address [address] [place] [address] Phone Care Team Providers Care Soap Worker Name Role Phone Janak Greer MD Primary Care Provider [phone] Allergies No known active allergies Medications apixaban [...] Care Team Description 07/18/2024 Telephone Pulmon[facility]gy - [address] [place] [address] Suzanna Moreno MA from Last [...] uncomplicated (HCC) Bipolar disorder (CMS/HCC V2 4, [facility] V28) 02/25/2020 DX:Bipolar disorder (HCC) SHAWN (obstructive sleep apnea) 02/25/2020 DX :SHAWN (obstructive sleep apnea) Severe obesity with body mas s index (BMI) of 35.0 to 39.9 with comorbidity (CMS/HCC V24, CMS/HCC V28) 02/25/2020 DX:Severe obesity with body mass index (BMI) of 35.0 to 39.9 with comorbidity ([facility]) History of pulmonary embolus (PE) 02/25/2020 DX:History of pulmonary embolus (PE) Dyspnea 02/25/2020 DX:Dyspnea Blood clotting tendency (CMS/HCC V24) DX:Blood clotting tendency (HCC) Diabetes mellitus (CMS/[facility] V 24, [facility]/HCC V28) DX:Diabetes mellitus (HCC) High blood pressure [...] Info) Description 09/06/2024 10:30 AM EDT Appointment [facility] CT Scan [address] [place] [phone] 09/18/2024 10:45 AM EDT [facility] [address] [place] [phone] Jessica Becerra MD [address] [facility] [address] [place] [address] Health Maintenance Due Date Last Done Comments [...] Maintenance Results * COLONOSCOPY Anesthesia - MAC; [facility] ENDOSCOPY (03/04/2024 8:56 AM [...] previously scheduled. Narrative 03/04/2024 8:56 AM EST [facility] GI Patient Name: Chevy Dean Procedure [...] retroflexion views. Procedure Code(s): --- Professional --- 54436, Colonoscopy, flexible; diagnostic, including collection of specimen(s) by brushing or washing, when performed (separate procedure) Diagnosis Code(s): --- Professional --- Z12.11, Encounter for screening for malignant neoplasm of colon CPT copyright 2020 [employer]. All rights reserved. The codes documented in this report are preliminary and upon director call review may be revised to meet current compliance requirements. Yovanny Harvey MD 03/04/2024 8:56:08 AM This report has been signed electronically.Yovanny Harvey MD Number of Addenda: 0 Note Initiated On: 03/04/2024 8:33 AM Scope In: Scope Out: Endoscopy Department at [facility] - [address] [place] [phone] Procedure Note Yovanny Harvey MD - 03/04/2024 [facility] GI Patient Name: Chevy Dean Procedure [...] retroflexion views. Procedure Code(s): --- Professional --- 19707, Colonoscopy, flexible; diagnostic, including collection of specimen(s) by brushing or washing,when performed (separate procedure) Diagnosis Code(s): --- Professional --- Z12.11, Encounter for screening for malignantneoplasm of colon CPT copyright 2020 [employer]. All rights reserved. The codes documented in this report are preliminary and upon director call reviewmay be revised to meet current compliance requirements. Yovanny Harvey MD 03/04/2024 8:56:08 AM This report has been signed electronically.Yovanny Harvey MD Number of Addenda: 0 Note Initiated On: 03/04/2024 8:33 AM Scope In: Scope Out: Endoscopy Department at [facility] - [address] [place] [phone] IMPRESSION: - Diverticulosis in the sigmoid colon. [...] MEDICARE ADVANTAGE [place] Care Teams Soap Worker Relationship Specialty Start Date End Date Janak Greer MD [address] [place] [id number] PCP - General Internal Medicine 05/26/08
--- OUTSIDE RECORDS SUMMARY | 2024-08-22 15:11 | XMS_ITS | Encounter Summary ---
Author Organization [facility] Address [address] [place] [address] Care Team Providers Care Pumper Helper Name Role Phone Janak Greer MD Primary Care Provider [phone] Encounter Details Date Type Department Care Team (Late st Contact Info) Description 06/06/2023 Scanned Document [address] [place] [phone] Provider, Generic Social History Tobacco Use Types [...] on filedocumented in this encounter Care Teams Pumper Helper Relationship Specialty Start Date End Date Janak Greer MD [address] [place] [address] PCP - General Internal Medicine 08/09/22 documented as of this encounter
--- OUTSIDE RECORDS SUMMARY | 2024-08-22 15:11 | XMS_ITS | Encounter Summary ---
Author Organization [facility] Address [address] [address] Phone Care Team Providers Care Manager Mental Health Name Role Phone Janak Greer MD Primary Care Provider [phone] Encounter Details Date Type Department Care Team (Late Contact Info) Description 08/19/2024 Orders Only [facility] [address] [place] [place] [address] Sherrie [place]GOBL[place], [place] [address] [place] [address] Stage 3b chronic kidney disease [...] Visit [facility] [address] [place] [address] Kelechi Moran MD [address] [place] [address] Scheduled Orders Name Type Priority [...] proteinuria documented in this encounter Care Teams Manager Mental Health Relationship Specialty Start Date End Date Janak Greer MD [address] PCP - General 12/18/18 documented as of this encounter
--- OUTSIDE RECORDS SUMMARY | 2024-08-22 15:12 | XMS_ITS | Clinical Summary ---
Author Organization [facility] Address [address] [place] [address] Care Team Providers Care Bar Roller Name Role Phone Janak Greer MD Primary Care Provider [phone] Allergies No known active allergies Medications Medication [...] 0 05/13/2019 Act kay Continuous Blood Gluc Counseling Aide (FreeStyle Joseph 14 Day [place]) PABLO 0 01/29/2019 Active Continuous Blood Gluc [...] Quadrivalent) 0.5 ML ROSE MARIE Flucelvax Quad [id number] (PF) 60 mcg (15 mcg x 4)/0.5 [...] ambreen lite 0 Active Continuous Blood Gluc Counseling Aide (FreeStyle Joseph 14 Day [place]) PABLO FreeStyle Joseph 14 Day [place] 0 Active Lancets (freestyle) lancets FreeStyle Joseph [...] age to complete this topic Care Teams Bar Roller Relationship Specialty Start Date End Date Janak Greer MD [address] [place] [address] PCP - General Internal Medicine 12/27/18
--- OUTSIDE RECORDS SUMMARY | 2024-08-22 15:12 | XMS_ITS | Patient Health Record ---
Author Organization [facility] Address [address] [address] Care Team Providers Care Grades 7 And 8 Teacher Name Role Phone Caprice Staples Unavailable [phone] Reason For Referral No Information Medications Medication SIG (Take, Route, Frequency, Duration) Notes Start Date End Date Status Topiramate 50MG 1 ORAL twice daily; Duration: - [facility] 04/11/2013 Active metFORMIN HCl 500MG 1 ORAL four times da negro; Duration: [facility] 04/11/2013 Active Luz 0.05MG 1 patch to skin Transdermal TWICE WEEKLY [facility] 04/04/2013 Active Vitamin D3 5,000 IU 1 ORAL daily; [place] on: [facility] 04/11/2013 Active PriLOSEC OTC 20 MG 1 tablet Orally Once a day Active Atorvastatin Calcium 80 MG 1 tablet Oral ly Once a day Active Aspirin EC 81MG 1 ORAL daily; Durati on: - [facility] 04/11/2013 Active Abilify 2MG 1 ORAL daily; Durati on: [facility] 04/11/2013 Active Restasis 0.05 % 1 into affected eye Ophthalmic Twice a day Active Luz 0.05 MG/24HR 1 patch to skin Transdermal TWICE WEEKLY; Duration: 90 days 07/22/2014 Active LORazepam 1MG 1 ORAL three times d aily; Duration: [facility] 04/11/2013 Active glipiZIDE 5MG ORAL three times greg ly; Duration: [facility] 04/11/2013 Active Cymbalta 60MG 1 ORAL daily; Durati on: [facility] 04/11/2013 Active Problems Problem Type SNOMED Code ICD Code Onset Dates Problem Status W/U Status Risk Notes Problem Type II diabetes mellitus uncontrolled (613463175) Diabetes mellitus without mention of complication, type II or unspecified type, uncontrolled (250.02) Active confirmed Diag Problem Hyperlipidemia (78743705) Other and unspecified hyperlipidemia (272.4) Active confirmed Major Problem Menopausal symptom (07678262) Symptomatic menopausal or female climacteric states (627.2) Active confirmed Diag Problem Muscle pain (01119987) Unspecified myalgia and myositis (729.1) Active confirmed Major Problem Gynecological examination normal (580862553085031) Routine gynecological examination (V72.31) Active confirmed Major Plan Of Treatment Pending Test Test Name Order Date MAMMOGRAM, SCREENING 07/22/2014 Insurance Providers Payer Name Payer Address Payer Phone Subscriber Number Group Number Insured Name Patient Relationship to Insured Coverage Start Date Coverage End Date [employer] MEDICARE ADVANTAGE [facility] [address] [place] [place] [place] [id number] CHEVY WOLF Self - patient is the [...]
[2024-08-22 15:19] VITALS: BP 146/65; PULSE 67; TEMP 35.9; O2SAT 95; BMI 33.8
== END 2024-08-22 15:30 | disposition home or self-care (01) ==
LOC: HO.HBS 15:08
PROVIDERS: PCP Internal Medicine; Visit Provider Physician Assistant Surgical
DX: Z98.84 Bariatric surgery status (principal)
CPT/HCPCS: 99024

== ENCOUNTER → 2024-08-22 15:07 | Outpatient (BNVA) | payer MEDICARE, MEDICAID, SELFPAY | PROVIDERS: PCP Internal Medicine; Visit Provider Physician Assistant Surgical | DX: Z48.815 Encounter for surgical aftercare following surgery on the digestive system (principal); Z98.84 Bariatric surgery status | CPT/HCPCS: 99212 ==

== ENCOUNTER 2024-09-10 10:09 | Outpatient (AMB) | payer MEDICARE, MEDICAID, SELFPAY ==
--- NOTE | 2024-09-10 10:14 | A.OFFVIS_ITS ---
VS Expanded 09/10/24 10:43 BP 144/65 H Blood Pressure Location Rt brachial Blood Pressure Position Sitting Pulse 68 Pulse Source Pulse Oximeter Temp 95.5 F L Temperature Source Temporal Artery Scan Pulse Oximetry 97 Oxygen Delivery Method Room Air Height 5 ft 4 in Weight 188 lb 6.4 oz BMI 32.3 Body Fat % 39.5 Body Fat Mass 74.2 Fat Free Mass 114.0 Visceral Fat Rating 11.0 Body Water % 42.9 Body Water Mass 80.6 Muscle Mass/Score 108.2 Basal Metabolic Rate/Score 1,557 Intake Visit Reasons: (OV) PO LSG 08/13/24 Allergies No Known Allergies Allergy (Verified 09/10/24 10:21) HPI Comments Details: This?a?63?yo female who is s/p LSG without hiatal hernia repair on?08/13/2024. Presents for 1 month post op visit. Weight today is 188.4 pounds, with a BMI of 32.3. There has been a 48.9 pound weight loss,(initial weight 237.3 pounds) since starting the program on 05/27/2024 reflecting a 20.6 % total body weight loss and a weight loss of 22.1 pounds since surgery (operative weight 210.5 pounds) reflecting a 10.4 % TBWL since surgery. No complaints of nausea, emesis, abdominal pain or reflux. States that she has been under increased stress lately as she has been having to care for her father and mother. Her father is elderly and her mother has dementia. She is having some services come into the home although not enough. We discussed consulting her parents primary care physician to increase services in the house. Present meal plan includes: celebrate rebuild protein 2 scoops at 5-7, 11-1 celebrate rebuild 1 scoop at 2-4. celebrate bar at 5-8 Drinking 40-50 oz of fluids ? Exercise routine includes: stationary bike, 200 calories 6 days per week [facility] Medical History (Updated 08/22/24 @ 00:01 by Background Daemon) Greater trochanteric bursitis of left hip Extensor carpi ulnaris tendinitis Right knee pain Hyperlipidemia Insomnia Stress incontinence History of venous thromboembolism Anxiety Bipolar 1 disorder Arthritis of right knee Fatty liver Asthma Hypothyroid DVT (deep venous thrombosis) Fibromyalgia HTN (hypertension) Chronic renal insufficiency Type 2 diabetes mellitus Depression Morbid obesity Chronic pulmonary embolism Sleep apnea GERD (gastroesophageal reflux disease) Elevated cholesterol Surgical History S/P laparoscopic sleeve gastrectomy Status post total right knee replacement History of right knee joint replacement History of esophagogastroduodenoscopy (EGD) H/O colonoscopy Hx of inguinal hernia repair Hx of sinus surgery Hx of shoulder surgery Hx of umbilical hernia repair Hx of arthroscopy of right knee History of bladder suspension procedure Hx of tonsillectomy H/O: hysterectomy History of ankle surgery Family History Father Diabetes Heart failure HTN (hypertension) Maternal Aunt Diabetes Paternal Grandmother Diabetes Mother HTN (hypertension) Maternal Grandfather Lung cancer Paternal Grandfather Lung cancer Paternal Aunt Breast cancer Family/Other Prostate CA Paternal Uncle Heart disease Social History Household Members: Family Household Members Other:: takes care of parents Housing: House Are you a primary personal care assistant to a significant other at home: No Do you presently have visiting nurse or other home services: No Patient Tobacco Use Status: Former Tobacco user Tobacco use type: Cigarette Years Smoked: 30 Second Hand Smoke Exposure: No Advance Directives Date on File: 11/02/23 service: No Current occupational status: retired Physical Exam Vital Signs: Last Vital Signs Temp 95.5 F L 09/10/24 10:43 Pulse 68 09/10/24 10:43 BP 144/65 H 09/10/24 10:43 Pulse Ox 97 09/10/24 10:43 Oxygen Delivery Method Room Air 09/10/24 10:43 BMI result Body Mass Index 32.3 Const General: healthy appearing and no acute distress Resp Effort & Inspection: normal respiratory effort Auscultation: clear to auscultation bilaterally Cardio Rate: regular rate Rhythm: regular rhythm GI Auscultation: normal bowel sounds Extrem General: Yes normal to inspection Assessment & Plan Assessment & Plan (1) S/P laparoscopic sleeve gastrectomy: Code(s): Z98.84 - Bariatric surgery status Category: Surgical Plan: Patient has been having difficulty at home as she is now caring for both her parents. She is going to discuss this with her primary care physician to attempt to get more services in the home. In the meantime, she will continue to coordinate with Dr. Palm her meal plan. She will attempt to increase her exercise goals to reach 300 calories burned daily. We will have her return to the office in approximately 3 weeks
[2024-09-10 10:43] VITALS: BP 144/65; PULSE 68; TEMP 35.3; O2SAT 97; BMI 32.3
--- OUTSIDE RECORDS SUMMARY | 2024-09-10 10:56 | XMS_ITS | Encounter Summary ---
Author Organization [facility] Address [address] [place] [address] Care Team Providers Care Package Dye Stand Loader Name Role Phone Janak Greer MD Primary Care Provider [phone] Encounter Details Date Type Department Care Team (Late st Contact Info) Description 06/06/2023 Scanned Document [address] [place] [phone] Provider, Generic Social History Tobacco Use Types [...] on filedocumented in this encounter Care Teams Package Dye Stand Loader Relationship Specialty Start Date End Date Janak Greer MD [address] [place] [address] PCP - General Internal Medicine 08/09/22 documented as of this encounter
--- OUTSIDE RECORDS SUMMARY | 2024-09-10 10:57 | XMS_ITS | Encounter Summary ---
Author Organization [facility] Address [address] [address] Phone Care Team Providers Care Websphere Developer Name Role Phone Janak Greer MD Primary Care Provider [phone] Encounter Details Date Type Department Care Team (Late Contact Info) Description 05/27/2021 Documentation Only [facility] [address] [place] [address] Kelechi Moran MD [address] [place] [address] [place] [address] Social History Tobacco Use Types [...] Care Team (Late st Contact Info) Description 03/07/2025 2:15 PM EST Office Visit [facility] [address] [place] [address] Kelechi Moran MD [address] [place] [address] [place] [address] documented as of this encounter Visit Diagnoses Not on filedocumented in this encounter Care Teams Websphere Developer Relationship Specialty Start Date End Date Janak Greer MD [address] PCP - General 12/18/18 documented as of this encounter
--- OUTSIDE RECORDS SUMMARY | 2024-09-10 10:57 | XMS_ITS | Clinical Summary ---
Author Organization [facility] Address [address] [address] Phone Care Team Providers Care Drywall Contractor Name Role Phone Janak Greer MD Primary Care Provider [phone] Kelechi Moran MD Unavailable [phone] Allergies No known active allergies Medications atorvastatin (LIPITOR) 80 MG tablet Take 80 mg by mouth nightly at bedtime. Active carvedilol (COREG) 6.25 MG tablet Take 6.25 mg by mouth 2 (two) times a day with meals. Morning & evening. Active clonazePAM (KLONOPIN) 0.5 MG tablet Take 0.5 mg by mouth 3 (three) times a day as needed for anxiety. Active escitalopram oxalate (LEXAPRO) 20 MG tablet Take 20 mg by mouth daily. Active famotidine (PEPCID) 20 MG tablet Take 40 mg by mouth nightly at bedtime. Active ferrous sulfate 325 mg (65 mg big sandy iron) tablet Take 325 mg by mouth daily with breakfast. Active furosemide (LASIX) 40 MG tablet Take 40 mg by mouth daily. Active hydrOXYzine (ATARAX) 25 MG tablet Take 25 mg by mouth daily. In afternoon Active omeprazole (PRILOSEC) 20 MG capsule Take 20 mg by mouth daily. Active OXcarbazepine (TRILEPTAL) 600 MG tablet Take 600 mg by mouth 2 (two) times a day. Active warfarin (COUMADIN) 2.5 MG tablet Take 2.5 mg by mouth daily. Takes 7 tablets nightly. Active insulin lispro (ADMELOG, HUMALOG) 100 unit/mL injection vial Inject under the skin. As needed with meals Active levothyroxine (SYNTHROID,LEVOTHR OID) 25 MCG tabletIndications: Acquired hypothyroidism Take 1 tablet (25 mcg total) by mouth every morning. Add a 2nd tablet MWF. (so 2 tabs MWF, 1 tab rest of the week) 05/24/19 Active liraglutide (VICTOZA) 0.6 mg/0.1 mL (18 mg/3 mL) PnIjIndications:Ty pe 2 diabetes with nephropathy Inject 1.8 mg under the skin daily. 27 mL 11/18/19 23 Active blood-glucose sensor (DEXCOM G6 SENSOR) DeviIndications:Ty pe 2 diabetes mellitus with peripheral neuropathy Change Every 10 days 9 each 3 12/03/19 23 Active blood-glucose transmitter (DEXCOM G6 TRANSMITTER) DeviIndications:Ty pe 2 diabetes mellitus with peripheral neuropathy 1 Application by Miscellaneous route every 3 (three) months. 1 each 3 12/03/19 Active Active Problems Problem Noted Date Diagnosed Date Chronic kidney disease 05/23/2022 Hyperlipidemia 05/23/2022 Gastroesophageal reflux disease 05/23/2022 shelter current use of insulin 05/23/[address] 05/23/2022 Assessment & Plan (05/23/2022 1:14 PM EDT): Tandem pump/Dexcom G6, supplies from [facility]. Type 2 diabetes with nephropathy 05/23/2022 Assessment & Plan (05/23/2022 1:12 PM EDT): Following w/ Dr. Moran. + CKD/nephropathy. Stable renal function. BP under good control. Acquired hypothyroidism 05/23/2022 Assessment & Plan (05/23/2022 1:12 PM EDT): Previously on levothyroxine not listed on meds. Will message pt to confirm if on & dosing. Will check TFTs given exhaustion. Has been losing weight w/ victoza. Hypertensive disorder 10/24/2019 Type 2 diabetes mellitus with peripheral neuropa thy 10/24/2019 Assessment & Plan (05/23/2022 1:13 PM EDT): Control good based on CGM & report of last HbA1c. No frequent or severe hypoglycemia, but tending to go a bit low-fabiana in the afternoon - on review of download, is fairly even when does not bolus for lunch, but dips low several hours PC (without a significant post-meal spike). She is adding insulin to correction doses (above what pump directs her to). Advised to change correction factor from to 1:15 x 24 hrs to give more insulin with correction doses & to change carb ratio from MN- 4pm from 1:17 to 1:20 to help address lows. Continue to work on eating healthy & keeping active. To call or send in BG with problems with glycemic control. Up to date with ophtho. Follows with podiatry. Will do labs today. To call if hasn't heard from us within 1-2 weeks. She is having some irritation @ pump sites, in part due to pulling, advised to use a safety loop to create some slack in tubing & avoid pulling. Would change site q3 days, can put less insulin in reservoir. Could also check w/ pump company and/rubber flap tuber machine operator/CDE for additional suggestions. She is also interested in considering shifting to Omnipod which she was told would be covered. Given has only been on tandem ~ 2 yrs will try to see if we can make it more tolerable prior to shifting rx. Will refer to Olivia Gaona, RN/CDE for help with this along w/ ongoing pump support. Social History Tobacco Use Types Packs/Day Years Used Date Smoking Tobacco: Never Assessed Education Answer Date Recorded Are you interested in more education? Not on raphael e 06/10/2022 Are you concerned about learning? Not on file 06/10/2022 No 06/10/2022 No 06/10/2022 Digital Access Answer Date Recorded No 07/12/2022 No 07/12/2022 Reliable internet access at home? Not on file 07/12/2022 Device with a working camera? Not on file Comments Unknown Sex and Gender Information Value Date Recorded Sex Assigned at Not on file Legal Sex Female 4:06 PM EST Gender Identity Not on file Sexual Orientation Not on file Last Filed Vital Signs Vital Sign Reading Time Taken Comments Blood Pressure 112/70 05/23/2022 12:06 PM EDT Pulse 66 05/23/2022 12:06 PM EDT Temperature - - Respiratory Rate - - Oxygen Saturation 97% 05/23/2022 12: 06 PM EDT Inhaled Oxygen Concentration - - Weight 120.1 kg (264 lb 12.8 oz) 2022 12:06 PM EDT Height - - Body Mass Index - - Plan of Treatment Health Maintenance Due Date Last Done Comments Adult Td,Tdap Booster 1961 DEPRESSION SCREENING 1973 SMOKING Hx and SMOKELESS TOB ACCO SCREENING 1974 HEPATITIS C SCREENING 11/16/1979 HIV ONE-TIME SCREENING (18-6 5 YEARS) 11/16/1979 PNEUMOCOCCAL VACCINES (50+ y ears) (1 of 2 - PCV) 1980 PAP SMEAR 1982 MAMMOGRAM 2001 COLOGUARD 2006 COLONOSCOPY 2006 COLORECTAL CANCER SCREENING 2006 FIT TEST 2006 FOBT 2006 SIGMOIDOSCOPY 2006 VIRTUAL COLONOSCOPY 2006 ZOSTER VACCINES (1 of 2) 11/16/2011 RSV VACCINE (1 - Risk 60-74 years 1-dose series) 2021 DIABETIC EYE EXAM 05/23/2022 BLOOD PRESSURE 11/22/2022 05/23/2022 HEMOGLOBIN A1C 11/22/2022 05/23/2022 TSH LEVEL 05/24/2023 05/23/2022 COVID-19 VACCINE (1 - 2023-2 5 season) 2023 HEPATITIS A VACCINES Aged Out No long er eligible based on patient's age to complete this topic HIB VACCINES Aged Out No longer eligi ble based on patient's age to complete this topic MENINGOCOCCAL VACCINES (ACWY) Aged Out No longer eligible based on patient's age to complete this topic MENINGOCOCCAL VACCINES (B) Aged Out N o longer eligible based on patient's age to complete this topic Medical Devices Not on file Procedures Procedure Name Priority Date/Time Associated Diagnosis Comments HEMOGLOBIN A1C Routine 05/23/2022 12:49 PM EDT Type 2 diabetes with nephropathy TSH WITH REFLEX Routine 05/23/2022 12:49 PM EDT Acquired hypothyroidism from Last 3 Months or Most Recently Relevant to Health Maintenance Results * TSH with reflex (05/23/2022 12:49 PM EDT) TSH 1.37 0.27 - 4.20 uIU/mL [facility] Blood 05/23/2022 12:4 9 PM EDT 05/23/2022 12:50 PM EDT us Sheryl Still MD LAB BLOOD ORDERABLES F inal Result Performing Organization Address City/[facility]/ZIP Co de Phone Number [address] [address] * (ABNORMAL) Hemoglobin A1c (05/23/2022 12:49 PM EDT) HEMOGLOBIN A1C 5.9(H) 4.3 - 5.8 % [facility] Blood 05/23/2022 12:4 9 PM EDT 05/23/2022 12:50 PM EDT us Sheryl Still MD LAB BLOOD ORDERABLES F inal Result Performing Organization Address City/[facility]/ZIP Co de Phone Number [address] [address] from Last 3 Months or Most Recently Relevant to Health Maintenance Insurance MEDICARE HMO REPLACEMENT MEDICARE PART A & B MEDICARE HMO REPLACEMENT MEDICARE PART A & B MEDICARE HMO REPLACEMENT MEDICARE PART A & B [facility] [place] MEDICARE HMO REPLACEMENT MEDICARE PART A & B MEDICARE HMO REPLACEMENT MEDICARE PART A & B MEDICARE HMO REPLACEMENT MEDICARE PART A & B MEDICARE HMO REPLACEMENT MEDICARE PART A & B MEDICARE HMO REPLACEMENT MEDICARE PART A & B [facility] MEDICARE HMO REPLACEMENT MEDICARE PART A & B Care Teams Drywall Contractor Relationship Specialty Start Date End Date Janak Greer MD [address] [place] [phone] [email or web address] PCP - General Internal Medicine 03/12/21 Kelechi Moran MD [address] [place] [id number] [email or web address] Nephrology 05/23/22 Additional Source Comments The information contained in this document represents components of the legal health record. It is not the complete legal health record.[facility]
--- OUTSIDE RECORDS SUMMARY | 2024-09-10 10:57 | XMS_ITS | Clinical Summary ---
Author Organization [facility] Address [address] [place] [address] Care Team Providers Care Commissary Officer Name Role Phone Janak Greer MD Primary Care Provider [phone] Allergies No known active allergies Medications Medication [...] 0 05/13/2019 Act kay Continuous Blood Gluc Configuration Management Advisor (FreeStyle Joseph 14 Day [place]) PABLO 0 01/29/2019 Active Continuous Blood Gluc [...] Quadrivalent) 0.5 ML ROSE MARIE Flucelvax Quad [id number] (PF) 60 mcg (15 mcg x 4)/0.5 [...] ambreen lite 0 Active Continuous Blood Gluc Configuration Management Advisor (FreeStyle Joseph 14 Day [place]) PABLO FreeStyle Joseph 14 Day [place] 0 Active Lancets (freestyle) lancets FreeStyle Joseph [...] age to complete this topic Care Teams Commissary Officer Relationship Specialty Start Date End Date Janak Greer MD [address] [place] [address] PCP - General Internal Medicine 12/27/18
--- OUTSIDE RECORDS SUMMARY | 2024-09-10 10:57 | XMS_ITS | Patient Health Record ---
Author Organization [facility] [facility] Address [address] [address] Care Team Providers Care Bundle Tier Name Role Phone Caprice Staples Unavailable [phone] Reason For Referral No Information Medications Medication SIG (Take, Route, Frequency, Duration) Notes Start Date End Date Status Topiramate 50MG 1 ORAL twice daily; Duration: - [facility] 04/11/2013 Active metFORMIN HCl 500MG 1 ORAL four times da negro; Duration: [facility] 04/11/2013 Active Luz 0.05MG 1 patch to skin Transdermal TWICE WEEKLY [facility] 04/04/2013 Active Vitamin D3 5,000 IU 1 ORAL daily; Durati on: [facility] 04/11/2013 Active PriLOSEC OTC 20 MG 1 tablet Orally Once a day Active Atorvastatin Calcium 80 MG 1 tablet Oral ly Once a day Active Aspirin EC 81MG 1 ORAL daily; Durati on: - [facility] 04/11/2013 Active Abilify 2MG 1 ORAL daily; Durati on: [facility] 04/11/2013 Active Restasis 0.05 % 1 into affected eye Ophthalmic Twice a day Active Luz 0.05 MG/24HR 1 patch to skin Transdermal TWICE WEEKLY; Duration: 90 days 07/22/2014 Active LORazepam 1MG 1 ORAL three times d aily; Duration: [facility] 04/11/2013 Active glipiZIDE 5MG ORAL three times greg ly; Duration: [facility] 04/11/2013 Active Cymbalta 60MG 1 ORAL daily; Durati on: [facility] 04/11/2013 Active Problems Problem Type SNOMED Code ICD Code Onset Dates Problem Status W/U Status Risk Notes Problem Type II diabetes mellitus uncontrolled (280590401) Diabetes mellitus without mention of complication, type II or unspecified type, uncontrolled (250.02) Active confirmed Diag Problem Hyperlipidemia (92928568) Other and unspecified hyperlipidemia (272.4) Active confirmed Major Problem Menopausal symptom (13870421) Symptomatic menopausal or female climacteric states (627.2) Active confirmed Diag Problem Muscle pain (96257342) Unspecified myalgia and myositis (729.1) Active confirmed Major Problem Gynecological examination normal (279823068449678) Routine gynecological examination (V72.31) Active confirmed Major Plan Of Treatment Pending Test Test Name Order Date MAMMOGRAM, SCREENING 07/22/2014 Insurance Providers Payer Name Payer Address Payer Phone Subscriber Number Group Number Insured Name Patient Relationship to Insured Coverage Start Date Coverage End Date [employer] MED[employer] [facility] [address] [place] [address] [id number] CHEVY WOLF Self - patient is the [...]
--- OUTSIDE RECORDS SUMMARY | 2024-09-10 10:57 | XMS_ITS | Data Portability ---
Author Organization [place] - [facility], Allergy Address [address] [address] Care Team Providers Care Single Stayer Operator Name Role Phone LELA ANUSHA Primary Care Provider [phone] Assessment Encounter Date Assessment Date Assessment LastModified [...] in 1-2 weeks as scheduled for reevaluation. [email or web address] Not available 08/10/2023 16:45:14 09/28/2023 09/28/2023 Patient [...] 13:06:[address], sinuses, w/o contrast 2023 [facility] [facility], [address] [place], [address], 4 14:09:46 Medication Orders doxycyclin e hyclate 100 mg capsule 2023 [facility]/Pharmacy #[id number], [phone] [place], [address], 4 11:38:28 fluticason e propionate 50 mcg/actuat ion nasal spray,susp ension 2023 024 [facility]/Pharmacy #[id number], [phone] [place], [address], 4 12:08:06 Patient TargetsNo targets recorded. Patient Instructions Encounter Date Encounter Id Patient Instructions Last Modified By Organization Details Last Modified Time 07/24/2023 [id number] educational handout [facility] Not available 07/24/2023 12:43:51 Reason for Referral None Reported. Results Created Date Observation Date Name Description Value Unit Range Abnormal Flag Note LastModifiedBy Organization Detail LastModifiedTime 07/24/[address], sinus es, w/o contr ast No observ ation record ed. [facility] [address], [address], 07/24/2023 12:41:01 07/26/19 24 audio gram No observ ation record ed. [facility] Not Available 2023 12:46:02 08/08/19 24 07/24/2023 CT, sinus es, w/o contr ast No observ ation record ed. [facility] [address], [address], 08/08/2023 22:58:50 Result Notes None recorded. Problems Name Problem SNOMED Code Status Onset Date Resolution Date Notes Provider Name and Address Organization Details Recorded Time Benign paroxysma l positiona l vertigo 596748464 Active 2020 Benign paroxysma l vertigo, unspecifi ed ear; Note: Date Diagnosed : 04/14/2020 10:02 AM (H81.10) Not Available [facility] 02:26:19 Sensorine ural hearing loss of bilateral ears 862818203 Active 2020 Sensorine ural hearing loss, bilateral ; Note: Date Diagnosed : 04/14/2020 10:03 AM (H90.3) Not Available [facility] 08/02/202 4 02:26:31 Gastroeso phageal reflux disease without esophagit is 456289118 Active 2021 Gastro-es ophageal reflux disease without esophagit is; Note: Date Diagnosed : 04/15/2021 10:11 AM (K21.9) Not Available [facility] 4 02:26:18 Disturban ce of salivary secretion 45780370 Active 2021 Xerostomi a; Note: Date Diagnosed : 09/30/2021 11:57 AM (K11.7) Not Available [facility] 4 02:26:26 Allergic rhinitis caused by pollen 42723016 Active 2021 Allergic rhinitis due to pollen; Note: Date Diagnosed : 09/30/2021 11:57 AM (J30.1) Not Available [facility] 4 02:26:46 Bilateral temporoma ndibular joint pain 16097672224 772085 Active 2022 Arthralgi a of bilateral temporoma ndibular joint; Note: Date Diagnosed : 05/10/2022 2:35 PM (M26.623) Arthral justin of bilateral temporoma ndibular joint; Note: Date Diagnosed : 04/14/2020 10:02 AM (M26.623) ; Start Date : Not Available [facility] 4 02:26:33 Bleeding from nose 268833702 Active 2022 Epistaxis ; Note: Date Diagnosed : 05/10/2022 2:35 PM (R04.0) Not Available [facility] 4 02:26:44 Otorrhagi a of right ear 64537469544 90089 Active 2022 Otorrhagi a, right ear; Note: Date Diagnosed : 06/14/2022 2:51 PM (H92.21) Not Available [facility] 4 02:26:40 Acute maxillary sinusitis 90817759 Active 2023 Acute maxillary sinusitis , unspecifi ed; Note: Date Diagnosed : 04/25/2023 11:27 AM (J01.00) Not Available [facility] 4 02:26:24 Chronic maxillary sinusitis 55328841 Active 2023 Chronic maxillary sinusitis ; Note: Date Diagnosed : 06/12/2023 11:15 AM (J32.0) Not Available [facility] 4 02:26:21 Chronic sinusitis 88921732 Active 2023 ELENITA KANG MD [address], [place], [address] , [place] - [facility] 4 21:08:07 Deviated nasal septum 490390958 Active 2023 ELENITA KANG MD [address], [place], [address] , [place] [facility] 4 21:08:13 Abnormal auditory perceptio n 75499439 Active 2023 ELENITA KANG MD [address], [place], [address] , [place] - [facility] 4 12:02:38 Chronic left maxillary sinusitis 94417113488 479177 Active 2023 ELENITA KANG MD [address], [place], [address] , [place] - [facility] 4 14:04:57 Obstructi ve sleep apnea syndrome 42051997 Active 2023 ELENITA KANG MD [address], [place], [address] , [facility] - [facility] 4 14:22:09 Problem Notes None recorded. Procedures Surgical History Date Name Laterality Status Provider Name and Address Organization Details Recorded Time 01/08/20 24 NasalEndoscopy_DP completed MARVIN CHEUNG PA-C [address], [place], [address], [facility] 01/08/2024 12:45:15 09/28/19 24 JMSNasal/Sinus Endoscopy-PRIOR surgical cavities completed ELENITA MONTANO MD [address], [place], [address], [facility] - [facility] 09/28/2023 12:07:20 08/25/19 24 JMSNasal/Sinus Endoscopy-DEBRIDE MENT completed ELENITA MONTANO MD 100 [facility],[address], [address], [facility] - [facility] 08/25/2023 14:20:40 08/10/19 24 JMSNasal/Sinus Endoscopy-DEBRIDE MENT completed RAMYA BHATTI PA-C 100 [facility],[address] [address], [place], [address], [facility] - [facility] 08/10/2023 16:43:40 08/08/19 24 ENDOSCOPY, NASAL/SINUS W/ PARTIAL ETHMOIDECTOMY (SURG) completed Nacho Aldana [place] - [facility] 08/11/2023 13:52:45 07/24/19 24 JMSNasal/Sinus Endoscopy completed ELEINTA MONTANO MD 100 [facility],[address], [address], [facility] - [facility] 07/24/2023 12:01:33 07/24/19 24 SRT & Tymps - 54786 & 28036 completed Leah Donaldson [facility] 07/24/2023 12:28:03 Imaging Results None recorded. [...] mg tablet 09/30 completed Medicati on ID: [id number] B rand Name: furosemi de Send Method: E-Prescr ibed Sub s Allowed: subs OK Medic ationGen ericName : furosemi de Not Available Not Available Not Available Miralax 17 gram/dose oral powder 09/30 completed Medicati on ID: [id number] B rand Name: Miralax Send Method: E-Prescr [...] pack Take 06/11 completed Medicati on ID: [id number] P rescribe d By Name: Joleen Cruz MD Brand Name: Medrol (Jeff) Se nd Method: E-Prescr ibed Sub s Allowed: subs OK Speci al Instruct ion: take as instruct ed Medic ationGen ericName : Medrol (Jeff) Not Available Not Available Not Available prednison e 20 mg tablet by mouth 2023 active Medicati on ID: [id number] B rand Name: predniso ne Send Method: [...] tended release 09/30 completed Medicati on ID: [id number] B rand Name: Tylenol Arthriti s Pain [...] mg tablet 09/30 completed Medicati on ID: [id number] B rand Name: oxcarbaz epine Se nd Method: E-Prescr ibed Sub s Allowed: subs OK Medic ationGen ericName : oxcarbaz epine Not Available Not Available Not Available acetamino phen 300 mg-codein e 30 mg tablet active Medicati on ID: [id number] B rand Name: acetamin ophen-co deine Se [...] mcg tablet 09/30 completed Medicati on ID: [id number] B rand Name: levothyr oxine Se nd Method: E-Prescr ibed Sub s Allowed: subs OK Medic ationGen ericName : levothyr oxine Not Available Not Available Not Available hydrocort isone 2.5 % topical cream with perineal applicato r 06/11 completed Medicati on ID: [id number] B rand Name: hydrocor tisone S end [...] 100 mg tablet active Medicati on ID: [id number] B rand Name: trazodon e Send Method: E-Prescr ibed Sub s Allowed: subs OK Medic ationGen ericName : trazodon e Medica tion ID: [id number] B rand Name: trazodon e Send Method: E-Prescr ibed Sub s Allowed: subs OK Medic ationGen ericName : trazodon e Not Available Not Available Not Available benzonata te 100 mg capsule TAKE 1 CAPSULE BY MOUTH THREE TIMES A DAY FOR 3 DAYS active Not Available Not Available No t Available levothyro xine 50 mcg tablet active Medicati on ID: 125257 B rand Name: levothyr oxine Se nd Method: E-Prescr ibed Sub s Allowed: subs OK Medic ationGen ericName : levothyr oxine Not Available Not Available Not Available cephalexi n 500 mg capsule TAKE 1 CAPSULE BY MOUTH FOUR TIMES A DAY active Not Available Not Available No t Available tacrolimu s 0.1 % topical ointment 06/11 completed Medicati on ID: [id number] B rand Name: tacrolim us Send Method: [...] mg tablet 06/11 completed Medicati on ID: [id number] B rand Name: hydroxyz ine HCl Send [...] nasal spray 09/30 completed Medicati on ID: [id number] B rand Name: azelasti ne Send Method: [...] unit) tablet 09/30 completed Medicati on ID: [id number] B rand Name: Vitamin D3 Send Method: [...] as directed 2022 active Medicati on ID: [id number] D uration Value: 14 Brand Name: Ciprodex [...] mg capsule 09/30 completed Medicati on ID: [id number] B rand Name: Cinnamon Send Method: E-Prescr ibed Sub s Allowed: subs OK [facility] Cinnamon Not Available Not [...] mcg tablet 09/30 completed Medicati on ID: [id number] B rand Name: Centrum Silver Women Se [...] ous pen injector active Medicati on ID: [id number] B rand Name: Mounjaro Send Method: E-Prescr [...] Updated DateTime 07/24/2023 162.56 cm 43.9 kg/m2 720857.65 g Jacob Bishop [place] - [facility] 07/24/2023 11:37:39 Date Recorded Body height Body mass index (BMI) Body weight Provider Name and Address Organization Details Last Updated DateTime 08/10/2023 162.56 cm 43.9 kg/m2 957468.65 g Deborah Saldivaros [place] - [facility] 08/10/2023 15:56:40 Date Recorded Body height Provider Name an d Address Organization Details Last Updated DateTime 08/25/2023 162.56 cm Jacob Bishop [place] - [facility] 08/25/2023 14:03:50 Date Recorded Body height Body mass index (BMI) Body weight Provider Name and Address Organization Details Last Updated DateTime 09/28/2023 162.56 cm 43.4 kg/m2 133740.87 g Jacob Bishop [place] - [facility] 09/28/2023 11:59:23 Social History None recorded. Functional Status None recorded. Mental Status None recorded. Family History Nothing Reported. Medical History Condition Response Depression Y High Cholesterol Y Anxiety Y Thyroid Problems Y Diabetes Y Sleep Disorder Y GERD/Reflux Y Hypertension Y Gynecological HistoryNo gynecological history recorded. Obstetrics History GPAL:G 0 P 0 0 0 0 Past Encounters Encounter ID Performer Location Encounter Start Date Encounter Closed Date Diagnosis/Indication Diagnosis SNOMED-CT Code Diagnosis ICD10 Code Diagnosis Note [id number] ELENITA KANG MD [facility] [address] [address] 07/24/2023 10:58:36 07/24/2023 13:19:59 Chronic sinusitis 25149712 J32.9 J32.8 Because of increased symptoms on [...] handout was given Deviated nasal septum 12 5951201 J34.2 Abnormal a uditory perception 83221951 H93.293 Tymp and SRT reviewedA speech awareness threshold test, tympanomet ry, and distortion product otoacousti c emission test were performed. Results are as follows: Speech Awareness/ Crystal Inspector Test: Right Ear:10 dB(HL) Left Ear:10 dB(HL) Tympanomet ry: Right Ear:Type Ad Left Ear:Type A [id number] RAMYA BHATTI PA-C [facility] [address] [address] 08/10/2023 15:42:46 08/10/2023 16:16:37 Chronic sinusitis 49237101 J32.8 Postoperative visit 1836 62091 Z48.89 [id number] ELENITA KANG MD [facility] [address] [address] 08/25/2023 13:59:35 08/25/2023 14:34:07 Chronic left maxillary sinusitis 7808589983 2481818 J32.0 No residual infection. Debridemen t performed. Suggest gentle irrigation to avoid ear symptoms. Burning mouth has improved. She can take some probiotics . Follow-up 4 weeks. Abnormal a uditory perception 69173025 H93.293 No fluid Obstructiv e sleep apnea syndrome 66614191 G47.33 Resume CPAP [id number] ELENITA KANG MD [facility] [address] [address] 09/28/2023 11:30:17 09/28/2023 12:14:30 Chronic left maxillary sinusitis 8150357380 9990431 J32.0 No residual infection. Debridemen t performed. Suggest gentle irrigation to avoid ear symptoms. Burning mouth has improved. She can take some probiotics . Follow-up 4 weeks. Deviated nasal septum 12 2379959 J34.2 [id number] MARVIN CHEUNG PA-C [facility] [address] [place] [address] 01/08/2024 10:59:57 01/08/2024 11:42:28 Deviated nasal septum 389462217 J34.2 right Chronic le ft maxillary sinusitis 3155720928 3077025 J32.0 Health Concerns Section Related Observation LastModified by Organization Detai ls LastModified Time None Recorded Concern Status LastModified by Organization Details LastModified Time None Recorded Advance Directives Directive None Recorded Payers Insurance Date Sequence Insurance Name Policy Number Policy Azul Covered Member ID Azul Member ID Guarantor Name 05/07/2024 2 MEDICAID-ID: [facility] Esperanza Dean [id number] Esperanza Dean 04/16/2024 1 [facility] [id number] Esperanza Dean [id number] Esperanza Dean OBGyn Episode No OBEpisode recorded.
--- OUTSIDE RECORDS SUMMARY | 2024-09-10 10:57 | XMS_ITS | Clinical Summary ---
Author Organization [facility] Address [address] [place] [address] Phone Care Team Providers Care Linoleum Installer Name Role Phone Janak Greer MD Primary Care Provider [phone] Allergies No known active allergies Medications apixaban [...] 90 each 2 5 04/21/19 26 Active omeprazole (PriLOSEC) [address] capsuleIndicatio ns:Gastroesophag eal reflux disease without esophagitis TAKE ONE CAPSULE BY MOUTH EVERY MORNING 90 capsule 5 Active Encounters Date Type Department Care Team Description 07/18/2024 Telephone Pulmonolgy - [address] [place] [address] Suzanna Moreno MA from Last [...] 02/25/2020 DX:Depression Diabetes mellitus type 2, uncomplicated ([facility] V24, [facility] V28) 02/25/2020 DX:Diabetes mellitus type 2, uncomplicated (HCC) Bipolar disorder ([facility] V2 4, [facility] V28) 02/25/2020 DX:Bipolar disorder (HCC) SHAWN (obstructive sleep apnea) 02/25/2020 DX :SHAWN (obstructive sleep apnea) Severe obesity with body mas s index (BMI) of 35.0 to 39.9 with comorbidity (CMS/HCC V24, [facility] V28) 02/25/2020 DX:Severe obesity with body mass index (BMI) of 35.0 to 39.9 with comorbidity (HCC) History of pulmonary embolus (PE) 02/25/2020 DX:History of pulmonary embolus (PE) Dyspnea 02/25/2020 DX:Dyspnea Blood clotting tendency (CMS/HCC V24) DX:Blood clotting tendency (HCC) Diabetes mellitus (CMS/HCC V 24, CMS/HCC V28) DX:Diabetes mellitus (HCC) High blood pressure [...] Care Team (Late st Contact Info) Description 09/18/2024 10:45 AM EDT Office Visit Pulmonolgy - [place] [address] [facility] [address] [place] [address] Jessica Becerra MD [address] [facility] [address] [place] [address] Health Maintenance Due Date Last Done Comments Breast Cancer Screening 1961 Diabetes: Annual GFR (Glomerular Filtration Rate) 1961 Diabetes: Annual Foot Exam 11/16/1971 Diabetes: Annual Retina Eye Exam 11/16/1971 Cervical Cancer Screening: Pap Smear 1982 Cholesterol Screening (Lipid Panel) 01/21/2022 HIV Screening 01/21/2022 Hepatitis C Screening 01/21/2022 Medicare Annual Wellness Visit 01/21/2022 Social Influencers of Health Screening 01/21/2022 Diabetes: Annual Urine Albumin-Creatinine Ratio (uACR) 01/29/2022 Diabetes: Blood Sugar Control Test (HGBA1C) 01/29/2022 Hypertension/CHF/CAD Annual BMP Blood Test 01/29/2022 Depression Screening 02/14/2024 Influenza Vaccine (#1) 2024 4, 2022, 10/27/2021, Additional history exists DTaP,Tdap,and Td [...] Results * COLONOSCOPY Anesthesia - MAC; [facility] END[facility]COPY (03/04/2024 8:56 AM EST) Anatomical [...] previously scheduled. Narrative 03/04/2024 8:56 AM EST [facility] Patient Name: Chevy Dean Procedure [...] retroflexion views. Procedure Code(s): --- Professional --- 50914, Colonoscopy, flexible; diagnostic, including collection of specimen(s) by brushing or washing, when performed (separate procedure) Diagnosis Code(s): --- Professional --- Z12.11, Encounter for screening for malignant neoplasm of colon CPT copyright 2020 [employer]. All rights reserved. The codes documented in this report are preliminary and upon wood club neck whipper review may be revised to meet current compliance requirements. Yovanny Harvey MD 03/04/2024 8:56:08 AM This report has been signed electronically.Yovanny Harvey MD Number of Addenda: 0 Note Initiated On: 03/04/2024 8:33 AM Scope In: Scope Out: Endoscopy Department at [facility] - [address] [place] [phone] Procedure Note Yovanny Harvey MD - 03/04/2024 [facility] Patient Name: Chevy Dean Procedure [...] retroflexion views. Procedure Code(s): --- Professional --- 98553, Colonoscopy, flexible; diagnostic, including collection of specimen(s) by brushing or washing,when performed (separate procedure) Diagnosis Code(s): --- Professional --- Z12.11, Encounter for screening for malignantneoplasm of colon CPT copyright 2020 [employer]. All rights reserved. The codes documented in this report are preliminary and upon wood club neck whipper reviewmay be revised to meet current compliance requirements. Yovanny Harvey MD 03/04/2024 8:56:08 AM This report has been signed electronically.Yovanny Harvey MD Number of Addenda: 0 Note Initiated On: 03/04/2024 8:33 AM Scope In: Scope Out: Endoscopy Department at [facility] - [address] [place] [phone] IMPRESSION: - Diverticulosis in the sigmoid colon. [...] MEDICARE ADVANTAGE [place]ICAID - [place] Care Teams Linoleum Installer Relationship Specialty Start Date End Date Janak Greer MD [address] [place] [address] PCP - General Internal Medicine 05/26/08
== END 2024-09-10 10:42 | disposition home or self-care (01) ==
LOC: HO.HBS 10:09
PROVIDERS: PCP Internal Medicine; Visit Provider Physician Assistant Surgical
DX: Z98.84 Bariatric surgery status (principal)
CPT/HCPCS: 99024

== ENCOUNTER → 2024-09-10 10:09 | Outpatient (BNVA) | payer MEDICARE, MEDICAID, SELFPAY | PROVIDERS: PCP Internal Medicine; Visit Provider Physician Assistant Surgical | DX: Z98.84 Bariatric surgery status (principal) | CPT/HCPCS: 99212 ==

== ENCOUNTER 2024-10-10 12:12 | Outpatient (AMB) | payer MEDICARE, MEDICAID, SELFPAY ==
--- NOTE | 2024-10-10 12:45 | MHC.OFFVISWM ---
VS Expanded 10/10/24 13:00 BP 143/65 H Blood Pressure Location Rt brachial Blood Pressure Position Sitting Pulse 62 Pulse Source Pulse Oximeter Temp 96.6 F L Temperature Source Temporal Artery Scan Pulse Oximetry 96 Oxygen Delivery Method Room Air Height 5 ft 4 in Weight 176 lb BMI 30.2 Body Fat % 36.6 Body Fat Mass 64.4 Fat Free Mass 111.6 Visceral Fat Rating 10.0 Body Water % 44.9 Body Water Mass 79.0 Muscle Mass/Score 105.8 Basal Metabolic Rate/Score 1,511 Intake Visit Reasons: (OV) PO LSG 08/13/24 Allergies No Known Allergies Allergy (Verified 10/10/24 12:55) HPI Comments Details: This?a?63?yo female who is s/p LSG without hiatal hernia repair on?08/13/2024. Presents for 2 month post op visit. Weight today is 176 pounds, with a BMI of 30.2. There has been a 61.3 pound weight loss,(initial weight 237.3 pounds) since starting the program on 05/27/2024 reflecting a 25.8 % total body weight loss and a weight loss of 34.5 pounds since surgery (operative weight 210.5 pounds) reflecting a 16.3 % TBWL since surgery. No complaints of nausea, emesis, abdominal pain or reflux. States that she has been under increased stress lately as she has been having to care for her father and mother. Her father is elderly and her mother has dementia. She is having some services come into the home although not enough. We discussed consulting her parents primary care physician to increase services in the house. Energy level is really good. Taking celebrate mvi Present meal plan includes: celebrate rebuild protein 1 scoops at 8-10, celebrate rebuild 1 scoop at 2-4. celebrate bar at 11-1, 7-9 meal at 5 pm 2 forks protein and 2 forks veg Drinking 40-50 oz of fluids ? Exercise routine includes: stationary bike, 300 calories (100 do 3 x per day) 6 days per week [facility] Medical History Greater trochanteric bursitis of left hip Extensor carpi ulnaris tendinitis Right knee pain Hyperlipidemia Insomnia Stress incontinence History of venous thromboembolism Anxiety Bipolar 1 disorder Arthritis of right knee Fatty liver Asthma Hypothyroid DVT (deep venous thrombosis) Fibromyalgia HTN (hypertension) Chronic renal insufficiency Type 2 diabetes mellitus Depression Morbid obesity Chronic pulmonary embolism Sleep apnea GERD (gastroesophageal reflux disease) Elevated cholesterol Surgical History S/P laparoscopic sleeve gastrectomy Status post total right knee replacement History of right knee joint replacement History of esophagogastroduodenoscopy (EGD) H/O colonoscopy Hx of inguinal hernia repair Hx of sinus surgery Hx of shoulder surgery Hx of umbilical hernia repair Hx of arthroscopy of right knee History of bladder suspension procedure Hx of tonsillectomy H/O: hysterectomy History of ankle surgery Family History Father Diabetes Heart failure HTN (hypertension) Maternal Aunt Diabetes Paternal Grandmother Diabetes Mother HTN (hypertension) Maternal Grandfather Lung cancer Paternal Grandfather Lung cancer Paternal Aunt Breast cancer Family/Other Prostate CA Paternal Uncle Heart disease Social History Household Members: Family Household Members Other:: takes care of parents Housing: House Are you a primary child care center assistant director to a significant other at home: No Do you presently have visiting nurse or other home services: No Patient Tobacco Use Status: Former Tobacco user Tobacco use type: Cigarette Years Smoked: 30 Second Hand Smoke Exposure: No Advance Directives Date on File: 11/02/23 service: No Current occupational status: retired Physical Exam Const General: healthy appearing and no acute distress Resp Effort & Inspection: normal respiratory effort Auscultation: clear to auscultation bilaterally Cardio Rate: regular rate Rhythm: regular rhythm GI Auscultation: normal bowel sounds Extrem General: Yes normal to inspection Assessment & Plan Assessment & Plan (1) S/P laparoscopic sleeve gastrectomy: Code(s): Z98.84 - Bariatric surgery status Category: Surgical Plan: Patient is doing well. Following the meal plan as directed by Dr. Palm. She is exercising 6 days per week, 300 calories per day. Recommend to increase to 340-350 calories burned per day as she is able. She does split this into t.i.d. exercise sessions. She feels as though her energy level is excellent and she feels great. She will continue current plans and follow-up in the office as scheduled
[2024-10-10 13:00] VITALS: BP 143/65; PULSE 62; TEMP 35.9; O2SAT 96; BMI 30.2
--- OUTSIDE RECORDS SUMMARY | 2024-10-10 13:10 | XMS_ITS | Encounter Summary ---
Author Organization [facility] Address [address] [place] [address] Care Team Providers Care Neon Installer Name Role Phone Janak Greer MD Primary Care Provider [phone] Encounter Details Date Type Department Care Team (Late st Contact Info) Description 06/06/2023 Scanned Document [address] [place] [phone] Provider, Generic Social History Tobacco Use Types [...] filedocumented in this encounter Care Teams Neon Installer Relationship Specialty Start Date End Date Janak Greer MD [address] [place] [address] PCP - General Internal Medicine 08/09/22 documented as of this encounter
--- OUTSIDE RECORDS SUMMARY | 2024-10-10 13:10 | XMS_ITS | Clinical Summary ---
Author Organization [facility] Address [address] [place] [address] Phone Care Team Providers Care Global Regulatory Lead Name Role Phone Janak Greer MD Primary Care Provider [phone] Allergies No known active allergies Medications apixaban (ELIQUIS) 5 mg tablet Take 1 tablet (5 mg total) by mouth 2 (two) times a day. Active traZODone (DESYREL) 150 mg tablet Take by mouth at bedtime as needed. at bedtime 01/17/20 24 Active OXcarbazepine (TRILEPTAL) 600 mg tablet Take [...] by mouth 1 (one) time each day. 11/10/19 24 Active Linzess 145 mcg capsule Take 1 capsule (145 mcg total) by mouth 1 (one) time each day. 01/05/20 24 Active levothyroxine (SYNTHROID, LEVOTHROID) 50 mcg tablet Take 1 tablet (50 mcg total) by mouth 1 (one) time each day before breakfast. 06/08/19 22 Active HumaLOG KwikPen Insulin 100 unit/mL injection pen PLEASE SEE ATTACHED FOR DETAILED DIRECTIONS 01/19/20 24 Active Lantus Solostar U-100 Insulin 100 unit/mL (3 mL) injection pen 30 UNITS DAILY, IF PUMP MALFUNCTIONS. CAN RESUME INSULIN PUMP 20-22 HOURS AFTER LAST DOSE. 01/19/20 24 Active hydrOXYzine pamoate (VISTARIL) 25 mg capsule Take 1 capsule (25 mg total) by mouth 3 (three) times a day if needed. 10/23/19 24 Active fluticasone propionate (FLONASE) 50 mcg/actuation nasal spray SPRAY 1 SPRAY BY INTRANASAL ROUTE EVERY DAY 12/25/19 24 Active Wixela Inhub 250-50 mcg/dose diskus inhaler Inhale 1 puff by mouth 2 (two) times a day. 10/18/19 24 Active famotidine (PEPCID) 20 mg tablet Take 1 tablet (20 mg total) by mouth 2 (two) times a day. Active escitalopram (LEXAPRO) 20 mg tablet Take 1 tablet (20 mg total) by mouth 1 (one) time each day. Active escitalopram (LEXAPRO) 5 mg tablet TAKE 1 TABLET BY ORAL ROUTE 1 TIME PER DAY (TAKE TOGETHER WITH 20 MG=25 MG/DAY). 01/17/20 24 Active carvediloL (COREG) 3.125 mg tablet TAKE 1 TABLET BY MOUTH 2 TIMES A DAY WITH 6.25 MG DOSE 01/17/20 24 Active carvediloL (COREG) 6.25 mg tablet Take 1 tablet (6.25 mg total) by mouth 2 (two) times a day. Active busPIRone (BUSPAR) 15 mg tablet Take 1 tablet (15 mg total) by mouth 2 (two) times a day. 10/23/19 24 Active atorvastatin (LIPITOR) 80 mg tablet Take 1 tablet (80 mg total) by mouth 1 (one) time each day. Active ARIPiprazole (ABILIFY) 5 mg tablet Take 1 tablet (5 mg total) by mouth 1 (one) time each day. 01/17/20 24 Active amoxicillin (AMOXIL) 500 mg tablet TAKE 4 TABLETS BY MOUTH 1 HOUR PRIOR TO DENTAL APPOINTMENT 01/22/20 24 Active albuterol HFA (PROAIR HFA ; PROVENTIL HFA ; VENTOLIN HFA) 90 mcg/actuation inhaler Inhale 2 puffs by mouth every 4 (four) hours. Active Mounjaro 10 mg/0.5 mL injection Inject 0.5 mL (10 mg total) under the skin every 7 (seven) days. 01/15/20 24 Active omeprazole (PriLOSEC) [address] capsuleIndications :Gastroesophageal reflux disease without esophagitis Take 1 capsule (20 mg total) by mouth 1 (one) time each day. Do not crush or chew. 90 each 2 07/25/19 25 026 Active omeprazole (PriLOSEC) [address] capsuleIndications :Gastroesophageal reflux disease without esophagitis TAKE ONE CAPSULE BY MOUTH EVERY MORNING 90 capsule 08/24/19 25 Active Alcohol Prep Pads pads, medicated 08/01/19 25 Active benzonatate (TESSALON) 100 mg capsule TAKE 1 CAPSULE BY MOUTH THREE TIMES A DAY FOR 3 DAYS Active blood sugar diagnostic (FreeStyle Lite Strips) test strip 08/01/19 25 Active FreeStyle Lite Meter monitoring kit USE DIRECTED FOR DIABETES CARE 3 TIMES A DAY 01/19/20 24 Active clonazePAM (KlonoPIN) 0.5 mg tablet PLEASE SEE ATTACHED FOR DETAILED DIRECTIONS Active clotrimazole (LOTRIMIN) 1 % cream APPLY 1 APPLICATION EXTERNALLY TWICE A DAY Active clotrimazole-betam ethasone (LOTRISONE) 1-0.05 % cream APPLY 1 APPLICATION EXTERNALLY TWICE A DAY Active guaiFENesin-codein e (ROBITUSSIN-AC) 100-10 mg/5 mL syrup TAKE 10 ML BY MOUTH EVERY 4 HOURS FOR 5 DAYS NEEDED Active cycloSPORINE (RESTASIS) 0.05 % ophthalmic emulsion 07/06/19 25 Active fondaparinux (ARIXTRA) 2.5 mg/0.5 mL syringe 08/06/19 25 Active hydrocortisone 2.5 % cream 08/01/19 25 Active FreeStyle Lancets 28 gauge lancets 04/18/19 25 Active ondansetron ODT (ZOFRAN-ODT) 4 mg disintegrating tablet 08/06/19 25 Active omeprazole OTC (PriLOSEC OTC) 20 mg EC tablet 1 tablet (20 mg total) 1 (one) time each day at the same time. Active pantoprazole (PROTONIX) 40 mg EC tablet 08/06/19 25 Active sucralfate (CARAFATE) 100 mg/mL suspension 08/09/19 25 Active Encounters Date Type Department Care Team Description 07/18/2024 Telephone Pulmonolgy - [address] [place] [address] Suzanna Moreno MA from Last [...] uncomplicated (HCC) Bipolar disorder (CMS/HCC V2 4, CMS/HCC V28) 02/25/2020 DX:Bipolar disorder (HCC) SHAWN (obstructive [...] Value Date Recorded Sex Assigned at Female 09/25/2024 10:08 PM EDT Legal Sex Female 6:24 PM EST Gender [...] Results * COLONOSCOPY Anesthesia - MAC; [facility] ENDOSCOPY (03/04/2024 8:56 AM EST) [...] previously scheduled. Narrative 03/04/2024 8:56 AM EST [facility] GI Patient Name: Chevy Dean Procedure [...] retroflexion views. Procedure Code(s): --- Professional --- 94597, Colonoscopy, flexible; diagnostic, including collection of specimen(s) by brushing or washing, when performed (separate procedure) Diagnosis Code(s): --- Professional --- Z12.11, Encounter for screening for malignant neoplasm of colon CPT copyright 2020 [employer]. All rights reserved. The codes documented in this report are preliminary and upon patient assistant review may be revised to meet current compliance requirements. Yovanny Harvey MD 03/04/2024 8:56:08 AM This report has been signed electronically.Yovanny Harvey MD Number of Addenda: 0 Note Initiated On: 03/04/2024 8:33 AM Scope In: Scope Out: Endoscopy Department at [facility] - [address] [place] [address] Procedure Note Yovanny Harvey MD - 03/04/2024 [facility] Patient Name: Chevy Dean Procedure [...] retroflexion views. Procedure Code(s): --- Professional --- 76898, Colonoscopy, flexible; diagnostic, including collection of specimen(s) by brushing or washing,when performed (separate procedure) Diagnosis Code(s): --- Professional --- Z12.11, Encounter for screening for malignantneoplasm of colon CPT copyright 2020 [employer]. All rights reserved. The codes documented in this report are preliminary and upon patient assistant reviewmay be revised to meet current compliance requirements. Yovanny Harvey MD 03/04/2024 8:56:08 AM This report has been signed electronically.Yovanny Harvey MD Number of Addenda: 0 Note Initiated On: 03/04/2024 8:33 AM Scope In: Scope Out: Endoscopy Department at [facility] - [address] [place] [phone] IMPRESSION: - Diverticulosis in the sigmoid colon. [...] Most Recently Relevant to Health Maintenance Insurance [facility] MEDICARE ADVANTAGE MEDICAID - [place] Care Teams Global Regulatory Lead Relationship Specialty Start Date End Date Janak Greer MD [address] [place] [phone] (Work) PCP - General Internal Medicine 05/26/08
--- OUTSIDE RECORDS SUMMARY | 2024-10-10 13:10 | XMS_ITS | Encounter Summary ---
Author Organization [facility] Address [address] [place] [address] Care Team Providers Care Fitness Centre Manager Name Role Phone Janak Greer MD Primary Care Provider [phone] Reason for Visit * Reason Comments Med Change Request Encounter Details Date Type Department Care Team ([facility] st Contact Info) Description 10/04/2022 Refill [facility] [address] [phone] Leslie Howell PA-C [address] [place] [phone] Visit for wound check Social History Tobacco [...] check documented in this encounter Care Teams Fitness Centre Manager Relationship Specialty Start Date End Date Janak Greer MD [address] [place] [address] PCP - General Internal Medicine 08/09/22 documented as of this encounter
--- OUTSIDE RECORDS SUMMARY | 2024-10-10 13:10 | XMS_ITS | Encounter Summary ---
Author Organization [facility] Address [address] [place] [address] Care Team Providers Care Wire Basket Maker Name Role Phone Janak Greer MD Primary Care Provider [phone] Encounter Details Date Type Department Care Team (Late st Contact Info) Description 10/07/2022 Telephone [facility] [address] [place] [phone] Rommel Whyte MD [address] [place] [phone] Social History Tobacco Use Types Packs/Day Years [...] on filedocumented in this encounter Care Teams Wire Basket Maker Relationship Specialty Start Date End Date Janak Greer MD [address] [place] [address] PCP - General Internal Medicine 08/09/22 documented as of this encounter
--- OUTSIDE RECORDS SUMMARY | 2024-10-10 13:11 | XMS_ITS | Clinical Summary ---
Author Organization [facility] Address [address] [place] [address] Care Team Providers Care Cartography Technician Name Role Phone Janak Greer MD Primary Care Provider [phone] Allergies No known active allergies Medications Medication [...] 0 05/13/2019 Act kay Continuous Blood Gluc Certified Medication Aide (FreeStyle Joseph 14 Day [place]) PABLO 0 01/29/2019 Active Continuous Blood Gluc [...] Quadrivalent) 0.5 ML ROSE MARIE Flucelvax Quad [id number] (PF) 60 mcg (15 mcg x 4)/0.5 [...] ambreen lite 0 Active Continuous Blood Gluc Certified Medication Aide (FreeStyle Joseph 14 Day [place]) PABLO FreeStyle Joseph 14 Day [place] 0 Active Lancets (freestyle) lancets FreeStyle Joseph [...] age to complete this topic Care Teams Cartography Technician Relationship Specialty Start Date End Date Janak Greer MD [address] [place] [address] PCP - General Internal Medicine 12/27/18
--- OUTSIDE RECORDS SUMMARY | 2024-10-10 13:11 | XMS_ITS | Encounter Summary ---
Author Organization [facility] Address [address] [place] [address] Care Team Providers Care Passenger Service Agent Name Role Phone Janak Greer MD Primary Care Provider Encounter Details Date Type Department Care Team (Late st Contact Info) Description 09/30/2022 [facility]ill [facility] [address] [phone] Rommel Whyte MD [address] [place] [address] [place] [phone] Chronic pain of left ankle Social History [...] ankle documented in this encounter Care Teams Passenger Service Agent Relationship Specialty Start Date End Date Janak Greer MD [address] [place] [address] PCP - General Internal Medicine 08/09/22 documented as of this encounter
--- OUTSIDE RECORDS SUMMARY | 2024-10-10 13:11 | XMS_ITS | Encounter Summary ---
Author Organization [facility] Address [address] [address] Phone Care Team Providers Care Solar Technician Name Role Phone Janak Greer MD Primary Care Provider [phone] Reason for Visit * Reason Comments New Med Request Encounter Details Date Type Department Care Team (Late Contact Info) Description 04/12/2022 Refill [facility] [address] [place] [address] Kelechi Moran MD [address] [place] [address] [place] [address] Social History Tobacco Use Types [...] Visit [facility] [address] [place] [address] Kelechi Moran MD [address] [place] [address] [place] [address] documented as of this encounter Visit Diagnoses Not on filedocumented in this encounter Care Teams Solar Technician Relationship Specialty Start Date End Date Janak Greer MD [address] PCP - General 12/18/18 documented as of this encounter
--- OUTSIDE RECORDS SUMMARY | 2024-10-10 13:11 | XMS_ITS | Encounter Summary ---
Author Organization [facility] Address [address] [place] [address] Care Team Providers Care Flight Manager Name Role Phone Janak Greer MD Primary Care Provider [phone] Encounter Details Date Type Department Care Team (Late st Contact Info) Description 09/28/2022 [facility]phone [facility] [address] [place] [phone] Rommel Whyte MD [address] [place] [phone] Social History Tobacco Use Types Packs/Day Years [...] on filedocumented in this encounter Care Teams Flight Manager Relationship Specialty Start Date End Date Janak Greer MD [address] [place] [address] PCP - General Internal Medicine 08/09/22 documented as of this encounter
--- OUTSIDE RECORDS SUMMARY | 2024-10-10 13:11 | XMS_ITS | Clinical Summary ---
Author Organization [facility], Address [address] [place] [address] [place] [address] Phone Care Team Providers Care Clay Washer Name Role Phone Janak Greer MD Primary Care Provider [phone] Allergies No known active allergies Medications aspirin (ST JULI) 81 MG EC tablet Take 1 tablet by mouth 1 (one) time each day Active Multiple Vitamins-Gas als (CENTRUM SILVER PO) Take 1 tablet [...] MG tablet 9 Active Continuous Blood Gluc Carton And Can Supply Supervisor (FREESTYLE KAPIL 14 DAY READER) device 9 Active Continuous Blood Gluc Sensor (FREESTYLE KAPIL 14 DAY SENSOR) misc USE EVERY 14 DAYS 0 Active BD VEO INSULIN SYRINGE U/F 31G [...] (PriLOSEC) [address] capsule 1 Active clobetasol (TEMOVATE) 0.05 % cream PLEASE [...] MCG tablet TAKE 1 TAB BY MOUTH MON,MON,MON, AND 1/2 TAB REST OF WEEK 2 [...] to type 2 diabetes mellitus 0 03/19/2019 Encounters Date Type Department Care Team Description 09/02/2024 1:30 PM EDT Office Visit [facility] [address] [place] [address] Kelechi Moran MD Stage 3b chronic kidney disease (HCC) (Primary Dx); Type 2 diabetes mellitus with diabetic chronic kidney disease (HCC); Persistent proteinuria; Anemia in chronic kidney disease; Iron deficiency anemia, not otherwise specified 08/19/2024 Orders Only [facility] [address] [place] [address] Sherrie Silverman MA Stage 3b chronic kidney disease (HCC) (Primary Dx); Type 2 diabetes mellitus with diabetic chronic kidney disease (HCC); Other iron deficiency anemia; Persistent proteinuria from Last 3 Months Immunizations Immunization Administration Dates Next Due Influenza, [...] Sign Reading Time Taken Comments Blood Pressure 120/60 09/02/2024 1:31 PM EDT Pulse - - Temperature - - Respiratory Rate - - Oxygen Saturation - - Inhaled Oxygen Concentration - - Weight 85.7 kg (189 lb) 09/02/2024 1:31 PM EDT Height 162.6 cm (5' 4 ) 10/04/2018 12:00 PM EDT Body Mass Index 32.44 10/04/2018 12:00 PM EDT Plan of Treatment Upcoming Encounters Date Type Department Care Team (Late st Contact Info) Description 03/07/2025 2:15 PM EST Office Visit [facility] [place], [address] [address] Kelechi Moran MD [address] [place] [phone] Health Maintenance Due Date Last Done Comments Breast Cancer Screening 1961 Pneumococcal Vaccine: 50+ Years (1 of 2 - PCV) 1980 Colorectal Cancer Screening: Annual FOBT 2010 Colorectal Cancer Screening: Colonoscopy 2010 Colorectal Cancer Screening: Sigmoidoscopy 2010 Diabetes: Hemoglobin A1C 03/19/2019 Diabetes: Ophthalmology Exam 03/19/2019 Diabetes: Pedal Pulse Checked 03/19/2019 Diabetes: Sensory Foot Exam 03/19/2019 Diabetes: Visual Foot Exam 03/19/2019 Influenza Vaccine (#1) 2024 0, 10/17/2018 Hepatitis B Vaccine Aged Out No longe r eligible based on patient's age to complete this topic [place] [address] Member Subscriber Plan / Payer (Ef fective 2022-Present) Name:Esperanza Dean Relation to Subscriber:Self Name:Esperanza Dean Payer ID:Not on file Type:Not on file Address: [address] [phone] Medicaid [place] Care Teams Clay Washer Relationship Specialty Start Date End Date Janak Greer MD [address] PCP - General 12/18/18
--- OUTSIDE RECORDS SUMMARY | 2024-10-10 13:11 | XMS_ITS | Encounter Summary ---
Author Organization [facility] Address [address] [address] Phone Care Team Providers Care Water Treatment Plant Mechanic Name Role Phone Janak Greer MD Primary Care Provider [phone] Encounter Details Date Type Department Care Team (Late Contact Info) Description 02/26/2021 Documentation Only [facility] [address] [place] [address] Kelechi Moran MD [address] [place] [address] [place] [address] Social History Tobacco Use Types [...] [facility] [address] [place] [address] Kelechi Moran MD [address] [place] [address] [place] [address] documented as of this encounter Visit Diagnoses Not on filedocumented in this encounter Care Teams Water Treatment Plant Mechanic Relationship Specialty Start Date End Date Janak Greer MD [address] PCP - General 12/18/18 documented as of this encounter
--- OUTSIDE RECORDS SUMMARY | 2024-10-10 13:11 | XMS_ITS | Encounter Summary ---
Author Organization [facility] Address [address] [address] Phone Care Team Providers Care Artificial Log Machine Operator Name Role Phone Janak Greer MD Primary Care Provider [phone] Encounter Details Date Type Department Care Team (Late Contact Info) Description 05/17/2021 Documentation Only [facility] [address] [place] [address] Kelechi Moran MD [address] [place] [address] [place] [address] Social History Tobacco Use Types [...] [facility] [address] [place] [address] Kelechi Moran MD [address] [place] [address] [place] [address] documented as of this encounter Visit Diagnoses Not on filedocumented in this encounter Care Teams Artificial Log Machine Operator Relationship Specialty Start Date End Date Janak Greer MD [address] PCP - General 12/18/18 documented as of this encounter
--- OUTSIDE RECORDS SUMMARY | 2024-10-10 13:11 | XMS_ITS | Encounter Summary ---
Author Organization [facility] Address [address] [address] Phone Care Team Providers Care Rn Forensic Name Role Phone Janak Greer MD Primary Care Provider [phone] Encounter Details Date Type Department Care Team (Late Contact Info) Description 05/27/2021 Documentation Only [facility] [address] [place] [address] Kelechi Moran MD [address] [place] [address] [place] [address] Social History Tobacco Use Types [...] Visit [facility] [address] [place] [address] Kelechi Moran MD [address] [place] [address] [place] [address] documented as of this encounter Visit Diagnoses Not on filedocumented in this encounter Care Teams Rn Forensic Relationship Specialty Start Date End Date Janak Greer MD [address] PCP - General 12/18/18 documented as of this encounter
--- OUTSIDE RECORDS SUMMARY | 2024-10-10 13:11 | XMS_ITS | Patient Health Record ---
Author Organization [employer] [facility] Address [address] [address] Care Team Providers Care Coin Machine Service Repairer Name Role Phone Caprice Staples Unavailable [phone] Reason For Referral No Information Medications Medication SIG (Take, Route, Frequency, Duration) Notes Start Date End Date Status Topiramate 50MG 1 ORAL twice daily; Duration: - [facility] 04/11/2013 Active metFORMIN HCl 500MG 1 ORAL four times da negro; Duration: [facility] 04/11/2013 Active Luz 0.05MG 1 patch to skin Transdermal TWICE WEEKLY [facility] 04/04/2013 Active Vitamin D3 5,000 IU 1 ORAL daily; Durati on: [facility] 04/11/2013 Active PriLOSEC OTC 20 MG 1 tablet Orally Once a day Active Atorvastatin Calcium 80 MG 1 tablet Oral ly Once a day Active Aspirin EC 81MG 1 ORAL daily; Durati on: - [facility] 04/11/2013 Active Abilify 2MG 1 ORAL daily; Durati on: [facility] 04/11/2013 Active Restasis 0.05 % 1 into affected eye Ophthalmic Twice a day Active Luz 0.05 MG/24HR 1 patch to skin Transdermal TWICE WEEKLY; Duration: 90 days 07/22/2014 Active LORazepam 1MG 1 ORAL three times d aily; Duration: [facility] 04/11/2013 Active glipiZIDE 5MG ORAL three times greg ly; Duration: [facility] 04/11/2013 Active Cymbalta 60MG 1 ORAL daily; Durati on: [facility] 04/11/2013 Active Problems Problem Type SNOMED Code ICD Code Onset Dates Problem Status W/U Status Risk Notes Problem Type II diabetes mellitus uncontrolled (631315010) Diabetes mellitus without mention of complication, type II or unspecified type, uncontrolled (250.02) Active confirmed Diag Problem Hyperlipidemia (63938429) Other and unspecified hyperlipidemia (272.4) Active confirmed Major Problem Menopausal symptom (91054775) Symptomatic menopausal or female climacteric states (627.2) Active confirmed Diag Problem Muscle pain (46317449) Unspecified myalgia and myositis (729.1) Active confirmed Major Problem Gynecological examination normal (238355234714958) Routine gynecological examination (V72.31) Active confirmed Major Plan Of Treatment Pending Test Test Name Order Date MAMMOGRAM, SCREENING 07/22/2014 Insurance Providers Payer Name Payer Address Payer Phone Subscriber Number Group Number Insured Name Patient Relationship to Insured Coverage Start Date Coverage End Date [employer] MEDICARE ADVANTAGE [facility] [address] [place] [id number] CHEVY WOLF Self - patient is the [...]
--- OUTSIDE RECORDS SUMMARY | 2024-10-10 13:11 | XMS_ITS | Clinical Summary ---
Author Organization [facility] Address [address] [place] [address] Care Team Providers Care Batch Tester Name Role Phone Janak Greer MD Primary Care Provider [phone] Allergies No known active allergies Medications No [...] to complete this topic Insurance Care Teams Batch Tester Relationship Specialty Start Date End Date Janak Greer MD [address] [place] [address] PCP - General Internal Medicine 08/09/22
--- OUTSIDE RECORDS SUMMARY | 2024-10-10 13:11 | XMS_ITS | Encounter Summary ---
Author Organization [facility] Address [address] [place] [address] Care Team Providers Care Atmospheric Drier Tender Name Role Phone Janak Greer MD Primary Care Provider [phone] Encounter Details Date Type Department Care Team (Late st Contact Info) Description 09/27/2022 Scanned Document [facility] [address] [address] Rommel Whyte MD [address] [place] [address] Social History Tobacco Use Types Packs/Day Years [...] on filedocumented in this encounter Care Teams Atmospheric Drier Tender Relationship Specialty Start Date End Date Janak Greer MD [address] [place] [address] PCP - General Internal Medicine 08/09/22 documented as of this encounter
--- OUTSIDE RECORDS SUMMARY | 2024-10-10 13:11 | XMS_ITS | Encounter Summary ---
Author Organization [facility] Address [address] [address] Phone Care Team Providers Care Appeals Court Associate Justice Name Role Phone Janak Greer MD Primary Care Provider [phone] Encounter Details Date Type Department Care Team (Late Contact Info) Description 05/20/2021 Documentation Only [facility] [address] [place] [address] Kelechi Moran MD [address] [place] [address] [place] [address] Social History Tobacco Use Types [...] Visit [facility] [address] [place] [address] Kelechi Moran MD [address] [place] [address] [place] [address] documented as of this encounter Visit Diagnoses Not on filedocumented in this encounter Care Teams Appeals Court Associate Justice Relationship Specialty Start Date End Date Janak Greer MD [address] PCP - General 12/18/18 documented as of this encounter
--- OUTSIDE RECORDS SUMMARY | 2024-10-10 13:11 | XMS_ITS | Encounter Summary ---
Author Organization [facility] Address [address] [address] Phone Care Team Providers Care Facility Worker Name Role Phone Janak Greer MD Primary Care Provider [phone] Encounter Details Date Type Department Care Team (Late Contact Info) Description 04/01/2021 Documentation Only [facility] [address] [place] [address] Kelechi Moran MD [address] [place] [address] [place] [address] Social History Tobacco Use Types [...] Visit [facility] [address] [place] [address] Kelechi Moran MD [address] [place] [address] [place] [address] documented as of this encounter Visit Diagnoses Not on filedocumented in this encounter Care Teams Facility Worker Relationship Specialty Start Date End Date Janak Greer MD [address] PCP - General 12/18/18 documented as of this encounter
--- OUTSIDE RECORDS SUMMARY | 2024-10-10 13:11 | XMS_ITS | Clinical Summary ---
Author Organization [facility] Address [address] [address] Phone Care Team Providers Care Field Rep Name Role Phone Janak Greer MD Primary Care Provider [phone] Kelechi Moran MD Unavailable Allergies No known active allergies Medications atorvastatin [...] Active ferrous sulfate 325 mg (65 mg nikolski iron) tablet Take 325 mg by mouth [...] 05/23/2022 Hyperlipidemia 05/23/2022 Gastroesophageal reflux disease 05/23/2022 long-term current use of insulin 05/23/[address] 05/23/2022 Assessment & Plan (05/23/2022 1:14 PM EDT): Tandem pump/Dexcom G6, supplies from [facility]. Type 2 diabetes with nephropathy 05/23/2022 Assessment [...] reservoir. Could also check w/ pump company and/sorter pricer/CDE for additional suggestions. She is also interested [...] EDT) TSH 1.37 0.27 - 4.20 uIU/mL [facility] Blood 05/23/2022 12:4 9 PM EDT 05/23/2022 12:50 PM EDT us Sheryl Still MD LAB BLOOD ORDERABLES F inal Result Performing Organization Address City/[facility]/ZIP Co de Phone Number [address] [address] * (ABNORMAL) Hemoglobin A1c (05/23/2022 12:49 PM EDT) HEMOGLOBIN A1C 5.9(H) 4.3 - 5.8 % [facility] Blood 05/23/2022 12:4 9 PM EDT 05/23/2022 12:50 PM EDT us Sheryl Still MD LAB BLOOD ORDERABLES F inal Result Performing Organization Address City/[facility]/ZIP Co de Phone Number [address] [address] from Last 3 Months or Most Recently [...] HMO REPLACEMENT MEDICARE PART A & B [facility] MEDICARE HMO REPLACEMENT MEDICARE PART A & B Care Teams Field Rep Relationship Specialty Start Date End Date Janak Greer MD [address] [place] [address] [email or web address] PCP - General Internal Medicine 03/12/21 Kelechi Moran MD [address] [place] [address] [email or web address] Nephrology 05/23/22 Additional Source Comments The information contained in this document represents components of the legal health record. It is not the complete legal health record.[facility]
== END 2024-10-10 13:11 | disposition home or self-care (01) ==
LOC: HO.HBS 12:12
PROVIDERS: PCP Internal Medicine; Visit Provider Physician Assistant Surgical
DX: Z98.84 Bariatric surgery status (principal)
CPT/HCPCS: 99024

== ENCOUNTER → 2024-10-10 12:12 | Outpatient (BNVA) | payer MEDICARE, MEDICAID, SELFPAY | PROVIDERS: PCP Internal Medicine; Visit Provider Physician Assistant Surgical | DX: Z98.84 Bariatric surgery status (principal) | CPT/HCPCS: 99212 ==

== ENCOUNTER 2024-10-29 09:57 | Outpatient (AMB) | payer MEDICARE, MEDICAID, SELFPAY ==
--- NOTE | 2024-10-29 10:10 | MHC.OFFVIS ---
Intake Visit Reasons: OV-R TKA w/ 10/30/23-Oct follow up Intake Note: Esperanza is a 63 year old female who presents with complaints of mild intermittent discomfort in her right knee after undergoing right total knee replacement surgery on 10/30/2023. The patient continues with her exercise program. She states that she has lost almost 100 pounds after undergoing gastric surgery in August. She denies any fevers or chills. Allergies No Known Allergies Allergy (Verified 10/29/24 10:14) Medication List - Last Reconciled 10/29/24 by Anup Jordan MD acetaminophen 650 mg (2 x 325 mg) PO Q6H PRN 30 days albuterol sulfate 90 mcg/actuation (Ventolin HFA) 1 inh inhalation Q4H PRN apixaban (Eliquis) 5 mg PO BID Held on 08/13/24. Instructions: until discussed with Dr Palm aripiprazole 5 mg PO DAILY atorvastatin 80 mg PO BEDTIME carvedilol 6.25 mg PO BID Held on 08/14/24. Instructions: Resume on 08/15/24. Check your blood pressure every morning as soon as you wake up and send it to Dr. Palm. Do no take the blood pressure medication if the blood pressure is below 120/70. Wait every day to hear back from Dr. Palm before you take the medication. carvedilol 3.125 mg PO BID Held on 08/14/24. Instructions: Resume on 08/15/24. Check your blood pressure every morning as soon as you wake up and send it to Dr. Palm. Do no take the blood pressure medication if the blood pressure is below 120/70. Wait every day to hear back from Dr. Palm before you take the medication. clonazepam 1 mg PO BID docusate sodium 100 mg PO DAILY PRN escitalopram oxalate 20 mg PO DAILY escitalopram oxalate 5 mg PO DAILY famotidine 40 mg PO BEDTIME fluticasone propionate 50 mcg/actuation 1 spray intranasal DAILY levothyroxine 50 mcg PO DAILY@0600 omeprazole 20 mg PO DAILY@0630 oxcarbazepine 600 mg PO BID sucralfate mL PO walker Folding front wheeled walker [facility] Medical History (Updated 10/25/24 @ 13:43 by Anup Jordan MD) Right knee pain Greater trochanteric bursitis of left hip Extensor carpi ulnaris tendinitis Hyperlipidemia Insomnia Stress incontinence History of venous thromboembolism Anxiety Bipolar 1 disorder Arthritis of right knee Fatty liver Asthma Hypothyroid DVT (deep venous thrombosis) Fibromyalgia HTN (hypertension) Chronic renal insufficiency Type 2 diabetes mellitus Depression Morbid obesity Chronic pulmonary embolism Sleep apnea GERD (gastroesophageal reflux disease) Elevated cholesterol Surgical History S/P laparoscopic sleeve gastrectomy Status post total right knee replacement History of right knee joint replacement History of esophagogastroduodenoscopy (EGD) H/O colonoscopy Hx of inguinal hernia repair Hx of sinus surgery Hx of shoulder surgery Hx of umbilical hernia repair Hx of arthroscopy of right knee History of bladder suspension procedure Hx of tonsillectomy H/O: hysterectomy History of ankle surgery Family History Father Diabetes Heart failure HTN (hypertension) Maternal Aunt Diabetes Paternal Grandmother Diabetes Mother HTN (hypertension) Maternal Grandfather Lung cancer Paternal Grandfather Lung cancer Paternal Aunt Breast cancer Family/Other Prostate CA Paternal Uncle Heart disease Social History Household Members: Family Household Members Other:: takes care of parents Housing: House Are you a primary healthcare administrative assistant to a significant other at home: No Do you presently have visiting nurse or other home services: No Patient Tobacco Use Status: Former Tobacco user Tobacco use type: Cigarette Years Smoked: 30 Second Hand Smoke Exposure: No Advance Directives Date on File: 11/02/23 service: No Current occupational status: retired Physical Exam Const Other: Well-nourished well-developed very friendly female awake alert and oriented x3 in no acute distress Extrem Other: Right knee examination shows that the surgical incision is well healed, no erythema, full active extension and flexion to 120 degrees, her patella tracks well Results Reviewed Results Reviewed: X-rays of the patient's right knee show a total knee arthroplasty in good position with no signs of loosening, no acute bony abnormalities Assessment & Plan Assessment & Plan (1) Right knee pain: Code(s): M25.561 - Pain in right knee Category: Medical Plan Ms. Dean continues to do very well after undergoing right total knee replacement surgery on 10/30/2023. She will continue with her weight loss and exercise programs. She does know to take antibiotics before any dental work. She will contact me prior to her annual follow-up appointment should any questions or concerns arise. Feel free to call me at any time should questions regarding her orthopedic management arise. I spent 20 minutes in reviewing the patient's records and imaging studies, seeing the patient and documenting in the medical record. Orders: Orders XR knee RT 3V Today M25.561 - Pain in right knee Coding Level of Care Code Est Pt Level 3 (54641) Complex EM visit Add On G2211 Diagnoses Right knee pain M25.561
--- OUTSIDE RECORDS SUMMARY | 2024-10-29 12:54 | XMS_ITS | Clinical Summary ---
Author Organization [facility] Address [address] [address] Phone Care Team Providers Care Used Car Sales Supervisor Name Role Phone Janak Greer MD Primary Care Provider [phone] Kelechi Moran MD Unavailable [phone] Allergies No known active allergies Medications atorvastatin [...] Active ferrous sulfate 325 mg (65 mg [place] iron) tablet Take 325 mg by mouth [...] 05/23/2022 Hyperlipidemia 05/23/2022 Gastroesophageal reflux disease 05/23/2022 residential current use of insulin 05/23/[address] 05/23/2022 Assessment & Plan (05/23/2022 1:14 PM EDT): Tandem pump/Dexcom G6, supplies from [facility]. Type 2 diabetes with nephropathy 05/23/2022 Assessment [...] reservoir. Could also check w/ pump company and/driver supervisor/CDE for additional suggestions. She is also interested [...] DEPRESSION SCREENING 1973 SMOKING Hx and SMOKELESS TOBACCO SCREENING 1974 HEPATITIS C SCREENING 11/16/1979 HIV ONE-TIME SCREENING (18-6 5 YEARS) 11/16/1979 PNEUMOCOCCAL VACCINES (50+ years) (1 of 2 - PCV) 1980 PAP SMEAR 1982 MAMMOGRAM 2001 COLOGUARD 2006 COLONOSCOPY 2006 COLORECTAL CANCER SCREENING 2006 FIT TEST 2006 FOBT 2006 SIGMOIDOSCOPY 2006 VIRTUAL COLONOSCOPY 2006 ZOSTER VACCINES (1 of 2) 11/16/2011 RSV VACCINE (1 - Risk 60-74 years 1-dose series) 2021 DIABETIC EYE EXAM 05/23/2022 BLOOD PRESSURE 11/22/2022 05/23/2022 HEMOGLOBIN A1C 11/22/2022 05/23/2022 TSH LEVEL 05/24/2023 05/23/2022 INFLUENZA VACCINE (#1) 2024 0, 10/17/2018 COVID-19 VACCINE (1 - 2023-2 5 season) 2024 HEPATITIS A VACCINES Aged Out No long [...] EDT) TSH 1.37 0.27 - 4.20 uIU/mL [facility] Blood 05/23/2022 12:4 9 PM EDT 05/23/2022 12:50 PM EDT us Sheyrl Still MD LAB BLOOD ORDERABLES F inal Result [address] [address] * (ABNORMAL) Hemoglobin A1c (05/23/2022 12:49 PM EDT) HEMOGLOBIN A1C 5.9(H) 4.3 - 5.8 % [facility] Blood 05/23/2022 12:4 9 PM EDT 05/23/2022 12:50 PM EDT us Sheryl Still MD LAB BLOOD ORDERABLES F inal Result [address] [address] from Last 3 Months or Most Recently Relevant to Health Maintenance Insurance [employer] MEDICARE HMO REPLACEMENT MEDICARE PART A & B MEDICARE HMO REPLACEMENT MEDICARE PART A & B MEDICARE HMO REPLACEMENT MEDICARE PART A & B MEDICARE HMO REPLACEMENT MEDICARE PART A & B MEDICARE HMO REPLACEMENT MEDICARE PART A & B MEDICARE HMO REPLACEMENT MEDICARE PART A & B MEDICARE PART A & B MEDICARE HMO REPLACEMENT MEDICARE PART A & B [employer] [place] MEDICARE HMO REPLACEMENT MEDICARE PART A & B Care Teams Used Car Sales Supervisor Relationship Specialty Start Date End Date Janak Greer MD [address] [address] [email or web address] PCP - General Internal Medicine 03/12/21 Kelechi Moran MD [address] [place] [address] Nephrology 05/23/22 Additional Source Comments The information contained in this document represents components of the legal health record. It is not the complete legal health record.[facility]
--- OUTSIDE RECORDS SUMMARY | 2024-10-29 12:54 | XMS_ITS | Encounter Summary ---
Author Organization [facility] Address [address] [place] [address] Care Team Providers Care Process Validation Engineer Name Role Phone Janak Greer MD Primary Care Provider [phone] Encounter Details Date Type Department Care Team (Late st Contact Info) Description 10/07/2022 Telephone [facility] [address] [place] [phone] Rommel Whyte MD [address] [place] [address] Social History Tobacco Use Types Packs/Day Years [...] on filedocumented in this encounter Care Teams Process Validation Engineer Relationship Specialty Start Date End Date Janak Greer MD [address] [place] [address] PCP - General Internal Medicine 08/09/22 documented as of this encounter
--- OUTSIDE RECORDS SUMMARY | 2024-10-29 12:54 | XMS_ITS | Encounter Summary ---
Author Organization [facility] Address [address] [place] [address] Care Team Providers Care Precision Agronomist Name Role Phone Janak Greer MD Primary Care Provider [phone] Reason for Visit * Reason Comments Med Change Request Encounter Details Date Type Department Care Team ([facility] st Contact Info) Description 10/04/2022 Refill [facility] [address] [address] Leslie Howell PA-C [address] [place] [address] Visit for wound check Social History Tobacco [...] check documented in this encounter Care Teams Precision Agronomist Relationship Specialty Start Date End Date Janak Greer MD [address] [place] [address] PCP - General Internal Medicine 08/09/22 documented as of this encounter
--- OUTSIDE RECORDS SUMMARY | 2024-10-29 12:54 | XMS_ITS | Encounter Summary ---
Author Organization [facility] Address [address] [address] Phone Care Team Providers Care Scraper Hand Name Role Phone Janak Greer MD Primary Care Provider [phone] Encounter Details Date Type Department Care Team (Late Contact Info) Description 05/17/2021 Documentation Only [facility] [address] [place] [address] Kelechi Moran MD [address] [place] [address] [place] [address] Social History Tobacco Use Types [...] Visit [facility] [address] [place] [address] Kelechi Moran MD [address] [place] [address] [place] [address] documented as of this encounter Visit Diagnoses Not on filedocumented in this encounter Care Teams Scraper Hand Relationship Specialty Start Date End Date Janak Greer MD [address] PCP - General 12/18/18 documented as of this encounter
--- OUTSIDE RECORDS SUMMARY | 2024-10-29 12:54 | XMS_ITS | Clinical Summary ---
Author Organization [facility] Address [address] [place] [address] Care Team Providers Care Burlap Worker Name Role Phone Janak Greer MD Primary Care Provider [phone] Allergies No known active allergies Medications No [...] 60-74 years 1-dose series) 2021 Influenza Vaccine 09/13/2024 2022, , 10/01/2019, Additional history exists COVID-19 Vaccine (3 - season) 2024 2022, 10/27/2021 Hepatitis B Vaccines Aged Out No long er eligible based on patient's age to complete this topic Insurance Care Teams Burlap Worker Relationship Specialty Start Date End Date Janak Greer MD [address] [place] [address] PCP - General Internal Medicine 08/09/22
--- OUTSIDE RECORDS SUMMARY | 2024-10-29 12:54 | XMS_ITS | Encounter Summary ---
Author Organization [facility] Address [address] [address] Phone Care Team Providers Care Pit Recorder Name Role Phone Janak Greer MD Primary Care Provider [phone] Encounter Details Date Type Department Care Team (Late Contact Info) Description 05/20/2021 Documentation Only [facility] [address] [place] [address] Kelechi Moran MD [address] [place] [address] [place] [address] Social History Tobacco Use Types [...] Visit [facility] [address] [place] [address] Kelechi Moran MD [address] [place] [address] [place] [address] documented as of this encounter Visit Diagnoses Not on filedocumented in this encounter Care Teams Pit Recorder Relationship Specialty Start Date End Date Janak Greer MD [address] PCP - General 12/18/18 documented as of this encounter
--- OUTSIDE RECORDS SUMMARY | 2024-10-29 12:54 | XMS_ITS | Encounter Summary ---
Author Organization [facility] Address [address] [address] Phone Care Team Providers Care Analyst Competitive Intelligence Name Role Phone Janak Greer MD Primary Care Provider [phone] Reason for Visit * Reason Comments New Med Request Encounter Details Date Type Department Care Team (Late Contact Info) Description 04/12/2022 Refill [facility] [address] [place] [address] Kelechi Moran MD [address] [place] [address] [place] [address] Social History Tobacco Use Types [...] [facility] [address] [place] [address] Kelechi Moran MD [address] [place] [address] [place] [address] documented as of this encounter Visit Diagnoses Not on filedocumented in this encounter Care Teams Analyst Competitive Intelligence Relationship Specialty Start Date End Date Janak Greer MD [address] PCP - General 12/18/18 documented as of this encounter
--- OUTSIDE RECORDS SUMMARY | 2024-10-29 12:54 | XMS_ITS | Encounter Summary ---
Author Organization [facility] Address [address] [address] Phone Care Team Providers Care Food Trades Assistants Name Role Phone Janak Greer MD Primary Care Provider [phone] Encounter Details Date Type Department Care Team (Late Contact Info) Description 05/27/2021 Documentation Only [facility] [address] [place] [address] Kelechi Moran MD [address] [place] [address] [place] [address] Social History Tobacco Use Types [...] Visit [facility] [address] [place] [address] Kelechi Moran MD [address] [place] [address] [place] [address] documented as of this encounter Visit Diagnoses Not on filedocumented in this encounter Care Teams Food Trades Assistants Relationship Specialty Start Date End Date Janak Greer MD [address] PCP - General 12/18/18 documented as of this encounter
--- OUTSIDE RECORDS SUMMARY | 2024-10-29 12:54 | XMS_ITS | Encounter Summary ---
Author Organization [facility] Address [address] [place] [address] Care Team Providers Care Impersonator Character Name Role Phone Janak Greer MD Primary Care Provider [phone] Encounter Details Date Type Department Care Team (Late st Contact Info) Description 09/30/2022 [facility]ill [facility] [address] [address] Rommel Whyte MD [address] [place] [address] [place] [phone] Chronic pain of left ankle Social History [...] ankle documented in this encounter Care Teams Impersonator Character Relationship Specialty Start Date End Date Janak Greer MD [address] [place] [address] PCP - General Internal Medicine 08/09/22 documented as of this encounter
--- OUTSIDE RECORDS SUMMARY | 2024-10-29 12:54 | XMS_ITS | Clinical Summary ---
Author Organization [facility], Address [address] [place] [address] [place] [address] Phone Care Team Providers Care National Sales Manager Name Role Phone Janak Greer MD Primary Care Provider [phone] Allergies No known active allergies Medications aspirin (ST JULI) 81 MG EC tablet Take 1 tablet by mouth 1 (one) time each day Active Multiple Vitamins-[place] als (CENTRUM SILVER PO) Take 1 tablet [...] MG tablet 9 Active Continuous Blood Gluc Sack Sewer (FREESTYLE KAPIL 14 DAY READER) device 9 [...] Visit [facility] [address] [place] [address] Kelechi Moran MD Stage 3b chronic kidney disease (HCC) (Primary Dx); Type 2 diabetes mellitus with diabetic chronic kidney disease (HCC); Persistent proteinuria; Anemia in chronic kidney disease; Iron deficiency anemia, not otherwise specified 08/19/2024 Orders Only [facility] [address] [place] [address] Sherrie Silverman MA Stage 3b chronic kidney [...] Visit [facility] [place], [address] [facility] [place] [address] Kelechi Moran MD [address] [facility] [place] [phone] Health Maintenance Due Date Last Done Comments [...] Procedure Name Priority Date/Time Associated Diagnosis Comments URINE ALBUMIN / CREATININE RATIO Routine 10/28/2024 12:45 PM EDT Stage 3b chronic kidney disease (HCC) Type 2 diabetes mellitus with diabetic chronic kidney disease (HCC) Other iron deficiency anemia Persistent proteinuria RENAL FUNCTION PANEL Routine 10/28/2024 12:45 PM EDT Stage 3b chronic kidney disease (HCC) Type 2 diabetes mellitus with diabetic chronic kidney disease (HCC) Other iron deficiency anemia Persistent proteinuria CBC AND DIFFERENTIAL Routine 10/28/2024 12:45 PM EDT Stage 3b chronic kidney disease (HCC) Type 2 diabetes mellitus with diabetic chronic kidney disease (HCC) Other iron deficiency anemia Persistent proteinuria URINALYSIS WITH MICROSCOPIC Routine 10/28/2024 12:44 PM EDT Stage 3b chronic kidney disease (HCC) Type 2 diabetes mellitus with diabetic chronic kidney disease (HCC) Persistent proteinuria IRON PANEL (FE, TIBC, TSAT) Routine 10/28/2024 12:44 PM EDT Stage 3b chronic kidney disease (HCC) Type 2 diabetes mellitus with diabetic chronic kidney disease (HCC) Persistent proteinuria FERRITIN Routine 10/28/2024 12:44 PM EDT Stage 3b chronic kidney disease (HCC) Type 2 diabetes mellitus with diabetic chronic kidney disease (HCC) Persistent proteinuria PTH, INTACT Routine 10/28/2024 12:44 PM EDT Stage 3b chronic kidney disease (HCC) Type 2 diabetes mellitus with diabetic chronic kidney disease (HCC) Persistent proteinuria MICROSCOPIC EXAMINATION - DO NOT USE Routine 10/28/2024 12:44 PM EDT from Last 3 Months Results * (ABNORMAL) CBC and Differential (10/28/2024 12:45 PM EDT) WBC 6.9 3.4 - 10.8 x10E3/uL [facility] RBC 3.64(L) 3.77 - 5.28 x10E6/uL [facility] Hemoglobin 11.0(L) 11.1 - 15.9 g/dL [facility] Hematocrit 34.1 34.0 - 46.6 % [facility] MCV 94 79 - 97 fL [facility] MCH 30.2 26.6 - 33.0 pg [facility] MCHC 32.3 31.5 - 35.7 g/dL [facility] RDW 14.5 11.7 - 15.4 % [facility] Platelets 279 150 - 450 x10E3/uL [facility] Neutrophils Relative 62 Not Estab. % [facility] Lymphocytes Relative 28 Not Estab. % [facility] Monocytes 6 Not Estab. % [facility] Eosinophils Relative 3 Not Estab. % [facility] Basophils Relative 1 Not Estab. % [facility] Neutrophils Absolute 4.4 1.4 - 7.0 x10E3/uL [facility] Lymphocytes Absolute 1.9 0.7 - 3.1 x10E3/uL [facility] Monocytes Absolute 0.4 0.1 - 0.9 x10E3/uL [facility] Eosinophils Absolute 0.2 0.0 - 0.4 x10E3/uL [facility] Basophils Absolute 0.1 0.0 - 0.2 x10E3/uL [facility] Immature Granulocytes 0 Not Estab. % [facility] Immature Grans (Absolute) 0.0 0.0 - 0.1 x10E3/uL [facility] Blood Venous blood / Unknown 10/28/2024 12:45 PM EDT 10/28/2024 Kelechi Moran MD LAB BLOOD ORDERABLES Final Result [facility] [address] [place] [address] * (ABNORMAL) Renal Function Panel (10/28/2024 12:45 PM EDT) Glucose 95 70 - 99 mg/dL [facility] BUN 27 8 - 27 mg/dL [facility] Creatinine 1.38(H) 0.57 - 1.00 mg/dL [facility] eGFR CKD-EPI CR 2020 43(L) >59 mL/min/1.7 3 [facility] BUN/Creatinine Ratio 20 12 - 28 [facility] Sodium 140 134 - 144 mmol/L [facility] Potassium 4.2 3.5 - 5.2 mmol/L [facility] Chloride 98 96 - 106 mmol/L [facility] Bicarbonate (CO2) 23 20 - 29 mmol/L [facility] Calcium 9.7 8.7 - 10.3 mg/dL [facility] Albumin 4.0 3.9 - 4.9 g/dL [facility] Phosphorus 3.6 3.0 - 4.3 mg/dL [facility] Blood Venous blood / Unknown 10/28/2024 12:45 PM EDT 10/28/2024 Kelechi Moran MD LAB BLOOD ORDERABLES Final Result [facility] [address] [place] [address] * (ABNORMAL) Microscopic Examination (10/28/2024 12:44 PM EDT) WBC, Urine 6-10(A) 0 - 5 /hpf [facility] RBC, Urine 0-2 0 - 2 /hpf [facility] Squamous Epithelial, Urine 0-10 0 - 10 /hpf [facility] Casts None seen None seen /lpf [facility] Bacteria, Urine None seen None seen/Few [facility] 10/28/2024 12:4 4 PM EDT 10/28/2024 Kelechi Moran MD LAB MICROBIOLOGY - GENERAL ORDERABLES Final Result [facility] [address] [place] [address] * (ABNORMAL) Iron Panel (Fe, TIBC, TSAT) (10/28/2024 12:44 PM EDT) Pathologist [facility] TIBC 183(L) 250 - 450 ug/dL [facility] UIBC 142 118 - 369 ug/dL [facility] Iron 41 27 - 139 ug/dL [facility] Iron Saturation (TSat) 22 15 - 55 % [facility] Blood Venous blood / Unknown 10/28/2024 12:44 PM EDT 10/28/2024 Kelechi Moran MD LAB BLOOD ORDERABLES Final Result [facility] [address] [place] [address] * (ABNORMAL) Urinalysis with microscopic (10/28/2024 12:44 PM EDT) [facility] Specific [place], Urine 1.016 1.005 - 1.030 [facility] pH Urine 6.0 5.0 - 7.5 [facility] Color, Urine Yellow Yellow [facility] Appearance Urine Clear Clear [facility] WBC Esterase Urine 1+(A) Negative [facility] Protein, Ur 3+(A) Negative/Tra ce [facility] [phone] Glucose, Ur Negative Negative [facility] [phone] Ketones, Urine Trace(A) Negative [facility] Blood Urine Negative Negative [facility] Bilirubin Urine Negative Negative [facility] Urobilinogen Urine 0.2 0.2 - 1.0 mg/dL [facility] Nitrite, Urine Negative Negative [facility] [phone] Microscopic Examination See below: [facility] [phone] Comment:Microscopic was bettina cated and was performed. Urine Urine specimen obtained by clean catch procedure / Unknown 10/28/2024 12:44 PM EDT 10/28/2024 Kelechi Moran MD LAB URINE ORDERABLES Final Result [facility] [address] [place] [address] * PTH, intact (10/28/2024 12:44 PM EDT) PTH 46 15 - 65 pg/mL [facility] Blood Venous blood / Unknown 10/28/2024 12:44 PM EDT 10/28/2024 Kelechi Moran MD LAB BLOOD ORDERABLES Final Result Performing Organization Address City/[facility]/ZIP Co de Phone Number [facility] [address] [place] [address] * (ABNORMAL) Ferritin (10/28/2024 12:44 PM EDT) Ferritin 230(H) 15 - 150 ng/mL [facility] Blood Venous blood / Unknown 10/28/2024 12:44 PM EDT 10/28/2024 Kelechi Moran MD LAB BLOOD ORDERABLES Final Result [facility] [address] [place] [address] from Last 3 Months Insurance [facility] Medicaid [place] Care Teams National Sales Manager Relationship Specialty Start Date End Date Janak Greer MD [address] PCP - General 12/18/18
--- OUTSIDE RECORDS SUMMARY | 2024-10-29 12:54 | XMS_ITS | Encounter Summary ---
Author Organization [facility] Address [address] [place] [address] Care Team Providers Care Heat Engineering Teacher Name Role Phone Janak Greer MD Primary Care Provider [phone] Encounter Details Date Type Department Care Team (Late st Contact Info) Description 09/27/2022 Scanned Document [facility] [address] [phone] Rommel Whyte MD [address] [place] [address] Social History Tobacco Use Types Packs/Day Years [...] on filedocumented in this encounter Care Teams Heat Engineering Teacher Relationship Specialty Start Date End Date Janak Greer MD [address] [place] [address] PCP - General Internal Medicine 08/09/22 documented as of this encounter
--- OUTSIDE RECORDS SUMMARY | 2024-10-29 12:54 | XMS_ITS | Encounter Summary ---
Author Organization [facility] Address [address] [place] [address] Care Team Providers Care Assignment Desk Assistant Name Role Phone Janak Greer MD Primary Care Provider [phone] Encounter Details Date Type Department Care Team (Late st Contact Info) Description 09/28/2022 Telephone [facility] [address] [place] [phone] Rommel Whyte MD [address] [place] [phone] Social History Tobacco Use Types Packs/Day Years [...] on filedocumented in this encounter Care Teams Assignment Desk Assistant Relationship Specialty Start Date End Date Janak Gerer MD [address] [place] [address] PCP - General Internal Medicine 08/09/22 documented as of this encounter
--- OUTSIDE RECORDS SUMMARY | 2024-10-29 12:54 | XMS_ITS | Encounter Summary ---
Author Organization [facility] Address [address] [place] [address] Care Team Providers Care Rigging Up Worker Name Role Phone Janak Greer MD Primary Care Provider [phone] Encounter Details Date Type Department Care Team (Late st Contact Info) Description 06/06/2023 Scanned Document [address] [place] [phone] Provider, Generic Social History Tobacco Use Types [...] on filedocumented in this encounter Care Teams Rigging Up Worker Relationship Specialty Start Date End Date Janak Greer MD [address] [place] [address] PCP - General Internal Medicine 08/09/22 documented as of this encounter
--- OUTSIDE RECORDS SUMMARY | 2024-10-29 12:54 | XMS_ITS | Patient Health Record ---
Author Organization [facility] Address [address] [address] Care Team Providers Care Banquet Set Up Person Name Role Phone Caprice Staples Unavailable [phone] Reason For Referral No Information Medications Medication SIG (Take, Route, Frequency, Duration) Notes Start Date End Date Status Topiramate 50MG 1 ORAL twice daily; Duration: - [facility] 04/11/2013 Active metFORMIN HCl 500MG 1 ORAL four times da nergo; Duration: [facility] 04/11/2013 Active Luz 0.05MG 1 patch to skin Transdermal TWICE WEEKLY [facility] 04/04/2013 Active Vitamin D3 5,000 IU 1 ORAL daily; Durati on: [facility] 04/11/2013 Active PriLOSEC OTC 20 MG 1 tablet Orally Once a day Active Atorvastatin Calcium 80 MG 1 tablet Oral ly Once a day Active Aspirin EC 81MG 1 ORAL daily; Durati on: - [facility] 04/11/2013 Active Abilify 2MG 1 ORAL daily; Durati on: [facility] 04/11/2013 Active Restasis 0.05 % 1 into affected eye Ophthalmic Twice a day Active Luz 0.05 MG/24HR 1 patch to skin Transdermal TWICE WEEKLY; Duration: 90 days 07/22/2014 Active LORazepam 1MG 1 ORAL three times d aily; Duration: [facility] 04/11/2013 Active glipiZIDE 5MG ORAL three times greg ly; Duration: [facility] 04/11/2013 Active Cymbalta 60MG 1 ORAL daily; Durati on: [facility] 04/11/2013 Active Problems Problem Type SNOMED Code ICD Code Onset Dates Problem Status W/U Status Risk Notes Problem Type II diabetes mellitus uncontrolled (984967922) Diabetes mellitus without mention of complication, type II or unspecified type, uncontrolled (250.02) Active confirmed Diag Problem Hyperlipidemia (53688314) Other and unspecified hyperlipidemia (272.4) Active confirmed Major Problem Menopausal symptom (60979294) Symptomatic menopausal or female climacteric states (627.2) Active confirmed Diag Problem Muscle pain (67335936) Unspecified myalgia and myositis (729.1) Active confirmed Major Problem Gynecological examination normal (769064016317746) Routine gynecological examination (V72.31) Active confirmed Major Plan Of Treatment Pending Test Test Name Order Date MAMMOGRAM, SCREENING 07/22/2014 Insurance Providers Payer Name Payer Address Payer Phone Subscriber Number Group Number Insured Name Patient Relationship to Insured Coverage Start Date Coverage End Date [employer] MED[employer]AGE [facility] [address] [place] [address] [id number] CHEVY WOLF Self - patient is the [...]
--- OUTSIDE RECORDS SUMMARY | 2024-10-29 12:54 | XMS_ITS | Encounter Summary ---
Author Organization [facility] Address [address] [address] Phone Care Team Providers Care Metallurgical Engineering Technician Name Role Phone Janak Greer MD Primary Care Provider [phone] Encounter Details Date Type Department Care Team (Late Contact Info) Description 02/26/2021 Documentation Only [facility] [address] [place] [address] Kelechi Moran MD [address] [place] [address] [place] [address] Social History Tobacco Use Types [...] Visit [facility] [address] [place] [address] Kelechi Moran MD [address] [place] [address] [place] [address] documented as of this encounter Visit Diagnoses Not on filedocumented in this encounter Care Teams Metallurgical Engineering Technician Relationship Specialty Start Date End Date Janak Greer MD [address] PCP - General 12/18/18 documented as of this encounter
--- OUTSIDE RECORDS SUMMARY | 2024-10-29 12:54 | XMS_ITS | Clinical Summary ---
Author Organization [facility] Address [address] [place] [address] Phone Care Team Providers Care Farmworker Animal Name Role Phone Janak Greer MD Primary Care Provider [phone] Allergies No known active allergies Medications apixaban [...] (CARAFATE) 100 mg/mL suspension 08/09/19 25 Active Surgical History Surgery Date Site/Laterality Comments [...] 02/25/2020 DX:Depression Diabetes mellitus type 2, uncomplicated ([facility] V24, [facility] V28) 02/25/2020 DX:Diabetes mellitus type 2, uncomplicated (HCC) Bipolar disorder ([facility] V2 4, [facility] V28) 02/25/2020 DX:Bipolar disorder (HCC) SHAWN (obstructive sleep apnea) 02/25/2020 DX :SHAWN (obstructive sleep apnea) Severe obesity with body mas s index (BMI) of 35.0 to 39.9 with comorbidity ([facility] V24, [facility] V28) 02/25/2020 DX:Severe obesity with body mass index (BMI) of 35.0 to 39.9 with comorbidity ([facility]) History of pulmonary embolus (PE) 02/25/2020 DX:History of pulmonary embolus (PE) Dyspnea 02/25/2020 DX:Dyspnea Blood clotting tendency ([facility] V24) DX:Blood clotting tendency (HCC) Diabetes mellitus ([facility] V 24, [facility] V28) DX:Diabetes mellitus (HCC) High blood pressure [...] previously scheduled. Narrative 03/04/2024 8:56 AM EST [facility] Patient Name: Chevy Dean Procedure [...] retroflexion views. Procedure Code(s): --- Professional --- 49366, Colonoscopy, flexible; diagnostic, including collection of specimen(s) by brushing or washing, when performed (separate procedure) Diagnosis Code(s): --- Professional --- Z12.11, Encounter for screening for malignant neoplasm of colon CPT copyright 2020 [employer]. All rights reserved. The codes documented in this report are preliminary and upon card hand review may be revised to meet current compliance requirements. Yovanny Harvey MD 03/04/2024 8:56:08 AM This report has been signed electronically.Yovanny Harvey MD Number of Addenda: 0 Note Initiated On: 03/04/2024 8:33 AM Scope In: Scope Out: Endoscopy Department at [facility] - [address] [place] [phone] Procedure Note Yovanny Harvey MD - 03/04/2024 [facility] Patient Name: Chevy Dean Procedure [...] retroflexion views. Procedure Code(s): --- Professional --- 18174, Colonoscopy, flexible; diagnostic, including collection of specimen(s) by brushing or washing,when performed (separate procedure) Diagnosis Code(s): --- Professional --- Z12.11, Encounter for screening for malignantneoplasm of colon CPT copyright 2020 [employer]. All rights reserved. The codes documented in this report are preliminary and upon card hand reviewmay be revised to meet current compliance requirements. Yovanny Harvey MD 03/04/2024 8:56:08 AM This report has been signed electronically.Yovanny Harvey MD Number of Addenda: 0 Note Initiated On: 03/04/2024 8:33 AM Scope In: Scope Out: Endoscopy Department at [facility] - [address] [place] [phone] IMPRESSION: - Diverticulosis in the sigmoid colon. [...] MEDICARE ADVANTAGE [place]ICAID - [place] Care Teams Farmworker Animal Relationship Specialty Start Date End Date Janak Greer MD [address] [place] [address] PCP - General Internal Medicine 05/26/08
--- OUTSIDE RECORDS SUMMARY | 2024-10-29 12:54 | XMS_ITS | Encounter Summary ---
Author Organization [facility] Address [address] [address] Phone Care Team Providers Care Dental Ceramist Name Role Phone Janak Greer MD Primary Care Provider [phone] Encounter Details Date Type Department Care Team (Late Contact Info) Description 04/01/2021 Documentation Only [facility] [address] [place] [address] Kelechi Moran MD [address] [place] [address] [place] [address] Social History Tobacco Use Types [...] Visit [facility] [address] [place] [address] Kelechi Moran MD [address] [place] [address] [place] [address] documented as of this encounter Visit Diagnoses Not on filedocumented in this encounter Care Teams Dental Ceramist Relationship Specialty Start Date End Date Janak Greer MD [address] PCP - General 12/18/18 documented as of this encounter
== END 2024-10-29 10:35 | disposition home or self-care (01) ==
LOC: HO.HOS 09:57
PROVIDERS: PCP Internal Medicine; Visit Provider Orthopaedic Surgery
DX: M25.561 Pain in right knee (principal)
CPT/HCPCS: 99213; G2211

== ENCOUNTER → 2024-10-29 10:01 | Outpatient (BNV) | payer MEDICARE, MEDICAID, SELFPAY | PROVIDERS: Visit Provider Radiology Diagnostic Radiology | DX: M25.561 Pain in right knee (principal); Z96.651 Presence of right artificial knee joint | CPT/HCPCS: 73562 ==

== ENCOUNTER 2024-10-29 10:31 | Outpatient (REF) | payer MEDICARE, MEDICAID, SELFPAY ==
--- NOTE | ~2024-10-29 | XR_ITS ---
EXAMINATION: XR KNEE 3 VIEWS RIGHT HISTORY: M25.561 - Pain in right knee COMPARISON: Comparison is made with the prior examination dated 06/12/2024. FINDINGS: Three views of the right knee are submitted. The patient is again noted to be status post total knee arthroplasty. The orthopedic elements are in anatomic alignment. There is no radiographic evidence of loosening. There is no fracture or dislocation. The soft tissues are unremarkable. XR/XR knee RT 3V IMPRESSION: Status post right total knee arthroplasty. Electronically signed by: Hudson Rico MD 10/29/2024 10:16 AM EDT
--- OUTSIDE RECORDS SUMMARY | 2024-10-30 12:57 | XMS_ITS | Encounter Summary ---
Author Organization [facility] Address [address] [address] Phone Care Team Providers Care Account Services Associate Name Role Phone Janak Greer MD Primary Care Provider [phone] Encounter Details Date Type Department Care Team (Late Contact Info) Description 04/01/2021 Documentation Only [facility] [address] [place] [address] Kelechi Moran MD [address] [place] [address] [place] [address] Social History Tobacco Use Types [...] [facility] [address] [place] [address] Kelechi Moran MD [address] [place] [address] [place] [address] documented as of this encounter Visit Diagnoses Not on filedocumented in this encounter Care Teams Account Services Associate Relationship Specialty Start Date End Date Janak Greer MD [address] PCP - General 12/18/18 documented as of this encounter
--- OUTSIDE RECORDS SUMMARY | 2024-10-30 12:57 | XMS_ITS | Encounter Summary ---
Author Organization [facility] Address [address] [address] Phone Care Team Providers Care Nick Setter Name Role Phone Janak Greer MD Primary Care Provider [phone] Encounter Details Date Type Department Care Team (Late Contact Info) Description 05/27/2021 Documentation Only [facility] [address] [place] [address] Kelechi Moran MD [address] [place] [address] [place] [address] Social History Tobacco Use Types [...] [facility] [address] [place] [address] Kelechi Moran MD [address] [place] [address] [place] [address] documented as of this encounter Visit Diagnoses Not on filedocumented in this encounter Care Teams Nick Setter Relationship Specialty Start Date End Date Janak Greer MD [address] PCP - General 12/18/18 documented as of this encounter
--- OUTSIDE RECORDS SUMMARY | 2024-10-30 12:57 | XMS_ITS | Clinical Summary ---
Author Organization [facility] Address [address] [place] [address] Care Team Providers Care Slitting Machine Feeder Name Role Phone Janak Greer MD Primary Care Provider [phone] Allergies No known active allergies Medications Medication [...] 0 05/13/2019 Act kay Continuous Blood Gluc Senior Qc Technician (FreeStyle Joseph 14 [place]) PABLO 0 01/29/2019 Active Continuous Blood Gluc [...] Quadrivalent) 0.5 ML ROSE MARIE Flucelvax Quad [id number] (PF) 60 mcg (15 mcg x 4)/0.5 [...] ambreen lite 0 Active Continuous Blood Gluc Senior Qc Technician (FreeStyle Joseph 14 Day [place]) PABLO FreeStyle Joseph [place] 0 Active Lancets (freestyle) lancets FreeStyle Joseph [...] age to complete this topic Care Teams Slitting Machine Feeder Relationship Specialty Start Date End Date Janak Greer MD [address] [place] [address] PCP - General Internal Medicine 12/27/18
--- OUTSIDE RECORDS SUMMARY | 2024-10-30 12:57 | XMS_ITS | Encounter Summary ---
Author Organization [facility] Address [address] [address] Phone Care Team Providers Care Career Law Clerk Name Role Phone Janak Greer MD Primary Care Provider [phone] Encounter Details Date Type Department Care Team (Late Contact Info) Description 05/20/2021 Documentation Only [facility] [address] [place] [address] Kelechi Moran MD [address] [place] [address] [place] [address] Social History Tobacco Use Types [...] [facility] [address] [place] [address] Kelechi Moran MD [address] [place] [address] [place] [address] documented as of this encounter Visit Diagnoses Not on filedocumented in this encounter Care Teams Career Law Clerk Relationship Specialty Start Date End Date Janak Greer MD [address] PCP - General 12/18/18 documented as of this encounter
--- OUTSIDE RECORDS SUMMARY | 2024-10-30 12:57 | XMS_ITS | Clinical Summary ---
Author Organization [facility] Address [address] [place] [address] Phone Care Team Providers Care Assistant Center Director Name Role Phone Janak Greer MD Primary Care Provider [phone] Allergies No known active allergies Medications apixaban [...] 02/25/2020 DX:Depression Diabetes mellitus type 2, uncomplicated ([facility] V24, [facility] V28) 02/25/2020 DX:Diabetes mellitus type 2, uncomplicated (HCC) Bipolar disorder ([facility] V2 4, [facility] V28) 02/25/2020 DX:Bipolar disorder (HCC) SHAWN (obstructive sleep apnea) 02/25/2020 DX :SHAWN (obstructive sleep apnea) Severe obesity with body mas s index (BMI) of 35.0 to 39.9 with comorbidity ([facility]/HCC V24, [facility] V28) 02/25/2020 DX:Severe obesity with body mass index (BMI) of 35.0 to 39.9 with comorbidity ([facility]) History of pulmonary embolus (PE) 02/25/2020 DX:History of pulmonary embolus (PE) Dyspnea 02/25/2020 DX:Dyspnea Blood clotting tendency ([facility] V24) DX:Blood clotting tendency (HCC) Diabetes mellitus ([facility] V 24, [facility] V28) DX:Diabetes mellitus (HCC) High blood pressure [...] Maintenance Results * COLONOSCOPY Anesthesia - MAC; [facility] ENDOSCOPY (03/04/2024 8:56 AM EST) Anatomical [...] previously scheduled. Narrative 03/04/2024 8:56 AM EST [facility] GI Patient Name: Chevy Dean Procedure [...] retroflexion views. Procedure Code(s): --- Professional --- 19513, Colonoscopy, flexible; diagnostic, including collection of specimen(s) by brushing or washing, when performed (separate procedure) Diagnosis Code(s): --- Professional --- Z12.11, Encounter for screening for malignant neoplasm of colon CPT copyright 2020 [employer]. All rights reserved. The codes documented in this report are preliminary and upon professional nursing assistant review may be revised to meet current compliance requirements. Yovanny Harvey MD 03/04/2024 8:56:08 AM This report has been signed electronically.Yovanny Harvey MD Number of Addenda: 0 Note Initiated On: 03/04/2024 8:33 AM Scope In: Scope Out: Endoscopy Department at [facility] - [address] [place] [phone] Procedure Note Yovanny Harvey MD - 03/04/2024 [facility] GI Patient Name: Chevy Dean Procedure [...] retroflexion views. Procedure Code(s): --- Professional --- 73657, Colonoscopy, flexible; diagnostic, including collection of specimen(s) by brushing or washing,when performed (separate procedure) Diagnosis Code(s): --- Professional --- Z12.11, Encounter for screening for malignantneoplasm of colon CPT copyright 2020 [employer]. All rights reserved. The codes documented in this report are preliminary and upon professional nursing assistant reviewmay be revised to meet current compliance requirements. Yovanny Harvey MD 03/04/2024 8:56:08 AM This report has been signed electronically.Yovanny Harvey MD Number of Addenda: 0 Note Initiated On: 03/04/2024 8:33 AM Scope In: Scope Out: Endoscopy Department at [facility] - [address] [place] [phone] IMPRESSION: - Diverticulosis in the sigmoid colon. [...] MEDICARE ADVANTAGE [place]ICA[place] Care Teams Assistant Center Director Relationship Specialty Start Date End Date Janak Greer MD [address] [place] [address] PCP - General Internal Medicine 05/26/08
--- OUTSIDE RECORDS SUMMARY | 2024-10-30 12:57 | XMS_ITS | Encounter Summary ---
Author Organization [facility] Address [address] [place] [address] Care Team Providers Care Ivory Polisher Name Role Phone Janak Greer MD Primary Care Provider [phone] Encounter Details Date Type Department Care Team (Late st Contact Info) Description 06/06/2023 Scanned Document [address] [place] [phone] Provider, Generic Social History Tobacco Use Types [...] on filedocumented in this encounter Care Teams Ivory Polisher Relationship Specialty Start Date End Date Janak Greer MD [address] [place] [address] PCP - General Internal Medicine 08/09/22 documented as of this encounter
--- OUTSIDE RECORDS SUMMARY | 2024-10-30 12:57 | XMS_ITS | Clinical Summary ---
Author Organization [facility] Address [address] [place] [address] Care Team Providers Care Dermatology Physician Name Role Phone Janak Greer MD Primary Care Provider [phone] Allergies No known active allergies Medications No [...] to complete this topic Insurance Care Teams Dermatology Physician Relationship Specialty Start Date End Date Janak Greer MD [address] [place] [address] PCP - General Internal Medicine 08/09/22
--- OUTSIDE RECORDS SUMMARY | 2024-10-30 12:57 | XMS_ITS | Encounter Summary ---
Author Organization [facility] Address [address] [place] [address] Care Team Providers Care Fitness Director Name Role Phone Janak Greer MD Primary Care Provider [phone] Encounter Details Date Type Department Care Team (Late st Contact Info) Description 09/28/2022 Telephone [facility] [address] [phone] Rommel Whyte MD [address] [place] [address] Social History Tobacco Use Types Packs/Day Years [...] on filedocumented in this encounter Care Teams Fitness Director Relationship Specialty Start Date End Date Janak Greer MD [address] [place] [address] PCP - General Internal Medicine 08/09/22 documented as of this encounter
--- OUTSIDE RECORDS SUMMARY | 2024-10-30 12:57 | XMS_ITS | Encounter Summary ---
Author Organization [facility] Address [address] [place] [address] Care Team Providers Care Medical Affairs Leader Name Role Phone Janak Greer MD Primary Care Provider [phone] Encounter Details Date Type Department Care Team (Late st Contact Info) Description 10/07/2022 Telephone [facility] [address] [place] [phone] Rommel Whyte MD [address] [place] [phone] Social History Tobacco Use Types Packs/Day Years [...] on filedocumented in this encounter Care Teams Medical Affairs Leader Relationship Specialty Start Date End Date Janak Greer MD [address] [place] [address] PCP - General Internal Medicine 08/09/22 documented as of this encounter
--- OUTSIDE RECORDS SUMMARY | 2024-10-30 12:57 | XMS_ITS | Clinical Summary ---
Author Organization [facility] Address [address] [address] Phone Care Team Providers Care Division Head Name Role Phone Janak Greer MD Primary Care Provider [phone] Kelechi Moran MD Unavailable [phone] Allergies No known active allergies Medications atorvastatin [...] Active ferrous sulfate 325 mg (65 mg [place] iron) tablet Take 325 mg by mouth [...] 05/23/2022 Hyperlipidemia 05/23/2022 Gastroesophageal reflux disease 05/23/2022 FDC current use of insulin 05/23/[address] 05/23/2022 Assessment & Plan (05/23/2022 1:14 PM EDT): Tandem pump/Dexcom G6, supplies from [facility]. Type 2 diabetes with nephropathy 05/23/2022 Assessment [...] reservoir. Could also check w/ pump company and/carpenter supervisor/CDE for additional suggestions. She is also [...] EDT) TSH 1.37 0.27 - 4.20 uIU/mL [facility] Blood 05/23/2022 12:4 9 PM EDT 05/23/2022 12:50 PM EDT us Sheryl Still MD LAB BLOOD ORDERABLES F inal Result [address] [address] * (ABNORMAL) Hemoglobin A1c (05/23/2022 12:49 PM EDT) HEMOGLOBIN A1C 5.9(H) 4.3 - 5.8 % [facility] Blood 05/23/2022 12:4 9 PM EDT 05/23/2022 12:50 PM EDT us Sheryl Still MD LAB BLOOD ORDERABLES F inal Result [address] [address] from Last 3 Months or Most Recently [...] MEDICARE PART A & B Care Teams Division Head Relationship Specialty Start Date End Date Janak Greer MD [address] [address] [email or web address] PCP - General Internal Medicine 03/12/21 Kelechi Moran MD [address] [place] [phone] Nephrology 05/23/22 Additional Source Comments The information contained in this document represents components of the legal health record. It is not the complete legal health record.[facility]
--- OUTSIDE RECORDS SUMMARY | 2024-10-30 12:57 | XMS_ITS | Encounter Summary ---
Author Organization [facility] Address [address] [place] [address] Care Team Providers Care Human Resources Compensation Analyst Name Role Phone Janak Greer MD Primary Care Provider [phone] Encounter Details Date Type Department Care Team (Late st Contact Info) Description 09/30/2022 Refill [facility] [address] [phone] Rommel Whyte MD [address] [place] [address] [place] [phone] Chronic pain of left ankle Social History [...] ankle documented in this encounter Care Teams Human Resources Compensation Analyst Relationship Specialty Start Date End Date Janak Greer MD [address] [place] [address] PCP - General Internal Medicine 08/09/22 documented as of this encounter
--- OUTSIDE RECORDS SUMMARY | 2024-10-30 12:57 | XMS_ITS | Encounter Summary ---
Author Organization [facility] Address [address] [address] Phone Care Team Providers Care Global Chief Creative Officer Name Role Phone Janak Greer MD Primary Care Provider [phone] Reason for Visit * Reason Comments New Med Request Encounter Details Date Type Department Care Team (Late Contact Info) Description 04/12/2022 Refill [facility] [address] [place] [address] Kelechi Moran MD [address] [place] [address] [place] [address] Social History Tobacco Use Types [...] [facility] [address] [place] [address] Kelechi Moran MD [address] [place] [address] [place] [address] documented as of this encounter Visit Diagnoses Not on filedocumented in this encounter Care Teams Global Chief Creative Officer Relationship Specialty Start Date End Date Janak Greer MD [address] PCP - General 12/18/18 documented as of this encounter
--- OUTSIDE RECORDS SUMMARY | 2024-10-30 12:57 | XMS_ITS | Encounter Summary ---
Author Organization [facility] Address [address] [place] [address] Care Team Providers Care Neckties Painter Name Role Phone Janak Greer MD Primary Care Provider [phone] Encounter Details Date Type Department Care Team (Late st Contact Info) Description 09/27/2022 Scanned Document [facility] [address] [address] Rommel Whyte MD [address] [place] [id number] Social History Tobacco Use Types Packs/Day Years [...] on filedocumented in this encounter Care Teams Neckties Painter Relationship Specialty Start Date End Date Janak Greer MD [address] [place] [address] PCP - General Internal Medicine 08/09/22 documented as of this encounter
--- OUTSIDE RECORDS SUMMARY | 2024-10-30 12:57 | XMS_ITS | Patient Health Record ---
Author Organization [employer] [facility] Address [address] [address] Care Team Providers Care Supervisor Liquid Yeast Name Role Phone Caprice Staples Unavailable [phone] Reason For Referral No Information Medications Medication SIG (Take, Route, Frequency, Duration) Notes Start Date End Date Status Topiramate 50MG 1 ORAL twice daily; Duration: - [facility] 04/11/2013 Active metFORMIN HCl 500MG 1 ORAL four times da negro; Duration: [facility] 04/11/2013 Active Luz 0.05MG 1 patch to skin Transdermal TWICE WEEKLY [facility] 04/04/2013 Active Vitamin D3 5,000 IU 1 ORAL daily; Durati [place]: [facility] 04/11/2013 Active PriLOSEC OTC 20 MG 1 tablet Orally Once a day Active Atorvastatin Calcium 80 MG 1 tablet Oral ly Once a day Active Aspirin EC 81MG 1 ORAL daily; Durati on: - [facility] 04/11/2013 Active Abilify 2MG 1 ORAL daily; Durati on: [facility] 04/11/2013 Active Restasis 0.05 % 1 into affected eye Ophthalmic Twice a day Active Luz 0.05 MG/24HR 1 patch to skin Transdermal TWICE WEEKLY; Duration: 90 days 07/22/2014 Active LORazepam 1MG 1 ORAL three times d aily; Duration: [facility] 04/11/2013 Active glipiZIDE 5MG ORAL three times greg ly; Duration: [facility] 04/11/2013 Active Cymbalta 60MG 1 ORAL daily; Durati on: [facility] 04/11/2013 Active Problems Problem Type SNOMED Code ICD Code Onset Dates Problem Status W/U Status Risk Notes Problem Type II diabetes mellitus uncontrolled (497096966) Diabetes mellitus without mention of complication, type II or unspecified type, uncontrolled (250.02) Active confirmed Diag Problem Hyperlipidemia (70256840) Other and unspecified hyperlipidemia (272.4) Active confirmed Major Problem Menopausal symptom (18651903) Symptomatic menopausal or female climacteric states (627.2) Active confirmed Diag Problem Muscle pain (14868242) Unspecified myalgia and myositis (729.1) Active confirmed Major Problem Gynecological examination normal (351353038394675) Routine gynecological examination (V72.31) Active confirmed Major Plan Of Treatment Pending Test Test Name Order Date MAMMOGRAM, SCREENING 07/22/2014 Insurance Providers Payer Name Payer Address Payer Phone Subscriber Number Group Number Insured Name Patient Relationship to Insured Coverage Start Date Coverage End Date [employer] MED[employer]ARE [employer]AGE [facility] [address] [place] [id number] CHEVY WOLF Self - patient is the [...]
--- OUTSIDE RECORDS SUMMARY | 2024-10-30 12:57 | XMS_ITS | Encounter Summary ---
Author Organization [facility] Address [address] [address] Phone Care Team Providers Care Library Paraprofessional Name Role Phone Janak Greer MD Primary Care Provider [phone] Encounter Details Date Type Department Care Team (Late Contact Info) Description 05/17/2021 Documentation Only [facility] [address] [place] [address] Kelechi Moran MD [address] [place] [address] [place] [address] Social History Tobacco Use Types [...] Visit [facility] [address] [place] [address] Kelechi Moran MD [address] [place] [address] [place] [address] documented as of this encounter Visit Diagnoses Not on filedocumented in this encounter Care Teams Library Paraprofessional Relationship Specialty Start Date End Date Janak Greer MD [address] PCP - General 12/18/18 documented as of this encounter
--- OUTSIDE RECORDS SUMMARY | 2024-10-30 12:57 | XMS_ITS | Clinical Summary ---
Author Organization [facility], Address [address] [place] [address] [place] [address] Phone Care Team Providers Care Guide Changer Name Role Phone Janak Greer MD Primary Care Provider [phone] Allergies No known active allergies Medications aspirin (ST JULI) 81 MG EC tablet Take 1 tablet by mouth 1 (one) time each day Active Multiple Vitamins-[place] als (CENTRUM SILVER PO) Take 1 tablet [...] MG tablet 9 Active Continuous Blood Gluc Manager Bench (FREESTYLE KAPIL 14 DAY READER) device 9 [...] [facility] [address] [place] [address] Kelechi Moran MD Stage 3b chronic kidney disease (HCC) (Primary Dx); Type 2 diabetes mellitus with diabetic chronic kidney disease (HCC); Persistent proteinuria; Anemia in chronic kidney disease; Iron deficiency anemia, not otherwise specified 08/19/2024 Orders Only [facility] [address] [place] [address] Sherrie Silverman MA Stage 3b chronic kidney [...] Visit [facility] [place], [address] [address] Kelechi Moran MD [address] [place] [phone] Health Maintenance Due Date Last Done Comments [...] from Last 3 Months Results * (ABNORMAL) Urine Albumin / Creatinine Ratio (10/28/2024 12:45 PM EDT) Creatinine, Ur 113.4 Not Estab. mg/dL [facility] Albumin, Urine 854.8 Not Estab. ug/mL [facility] Comment: Results confirmed on dilution. Albumin/Creatin ine Ratio 754(H) 0 - 29 mg/g creat [facility] Comment: Normal: 0 - 29 Moderately increased: 30 - 300 Severely increased: >300 Urine Urine specimen obtained by clean catch procedure / Unknown 10/28/2024 12:45 PM EDT 10/28/2024 us Kelechi Moran MD LAB URINE ORDERABLES Final Result [facility] [address] [place] [address] * (ABNORMAL) CBC and Differential (10/28/2024 12:45 PM EDT) WBC 6.9 3.4 - 10.8 x10E3/uL [facility] RBC 3.64(L) 3.77 - 5.28 x10E6/uL [facility] Hemoglobin 11.0(L) 11.1 - 15.9 g/dL [facility] Hematocrit 34.1 34.0 - 46.6 % [facility] MCV 94 79 - 97 fL [facility] MCH 30.2 26.6 - 33.0 pg [facility] MCHC 32.3 31.5 - 35.7 g/dL [facility] RDW 14.5 11.7 - 15.4 % [facility] Platelets 279 150 - 450 x10E3/uL [facility] Neutrophils Relative 62 Not Estab. % [facility] Lymphocytes Relative 28 Not Estab. % [facility] Monocytes 6 Not Estab. % [facility] Eosinophils Relative 3 Not Estab. % [facility] Basophils Relative 1 Not Estab. % [facility] Neutrophils Absolute 4.4 1.4 - 7.0 x10E3/uL [facility] Lymphocytes Absolute 1.9 0.7 - 3.1 x10E3/uL [facility] Monocytes Absolute 0.4 0.1 - 0.9 x10E3/uL [facility] Eosinophils Absolute 0.2 0.0 - 0.4 x10E3/uL [facility] Basophils Absolute 0.1 0.0 - 0.2 x10E3/uL [facility] Immature Granulocytes 0 Not Estab. % [facility] Immature Grans (Absolute) 0.0 0.0 - 0.1 x10E3/uL [facility] Blood Venous blood / Unknown 10/28/2024 12:45 PM EDT 10/28/2024 Kelechi Moran MD LAB BLOOD ORDERABLES Final Result [facility] [address] [place] [address] * (ABNORMAL) Renal Function Panel (10/28/2024 12:45 PM EDT) Pathologist [facility] Glucose 95 70 - 99 mg/dL [facility] BUN 27 8 - 27 mg/dL [facility] Creatinine 1.38(H) 0.57 - 1.00 mg/dL [facility] eGFR CKD-EPI CR 2020 43(L) >59 mL/min/1.7 3 [facility] BUN/Creatinine Ratio 20 12 - 28 [facility] Sodium 140 134 - 144 mmol/L [facility] Potassium 4.2 3.5 - 5.2 mmol/L [facility] Chloride 98 96 - 106 mmol/L [facility] Bicarbonate (CO2) 23 20 - 29 mmol/L [facility] Calcium 9.7 8.7 - 10.3 mg/dL [facility] Albumin 4.0 3.9 - 4.9 g/dL [facility] Phosphorus 3.6 3.0 - 4.3 mg/dL [facility] Blood Venous blood / Unknown 10/28/2024 12:45 PM EDT 10/28/2024 Kelechi Moran MD LAB BLOOD ORDERABLES Final Result [facility] [address] [place] [address] * (ABNORMAL) Microscopic Examination (10/28/2024 12:44 PM EDT) WBC, Urine 6-10(A) 0 - 5 /hpf [facility] RBC, Urine 0-2 0 - 2 /hpf [facility] Squamous Epithelial, Urine 0-10 0 - 10 /hpf [facility] Casts None seen None seen /lpf [facility] Bacteria, Urine None seen None seen/Few [facility] 10/28/2024 12:4 4 PM EDT 10/28/2024 Kelechi Moran MD LAB MICROBIOLOGY - GENERAL ORDERABLES Final Result Performing Organization Address City/[facility]/ZIP Co de Phone Number [facility] [address] [place] [address] * (ABNORMAL) Iron Panel (Fe, TIBC, TSAT) (10/28/2024 12:44 PM EDT) TIBC 183(L) 250 - 450 ug/dL [facility] UIBC 142 118 - 369 ug/dL [facility] Iron 41 27 - 139 ug/dL [facility] Iron Saturation (TSat) 22 15 - 55 % [facility] Blood Venous blood / Unknown 10/28/2024 12:44 PM EDT 10/28/2024 Kelechi Moran MD LAB BLOOD ORDERABLES Final Result [facility] [address] [place] [address] * (ABNORMAL) Urinalysis with microscopic (10/28/2024 12:44 PM EDT) Pathologist [facility] Specific [place], Urine 1.016 1.005 - 1.030 [facility] pH Urine 6.0 5.0 - 7.5 [facility] Color, Urine Yellow Yellow [facility] Appearance Urine Clear Clear [facility] [phone] WBC Esterase Urine 1+(A) Negative [facility] [phone] Protein, Ur 3+(A) Negative/Tra ce [facility] Glucose, Ur Negative Negative [facility] Ketones, Urine Trace(A) Negative [facility] Blood Urine Negative Negative [facility] [phone] Bilirubin Urine Negative Negative [facility] Urobilinogen Urine 0.2 0.2 - 1.0 mg/dL [facility] Nitrite, Urine Negative Negative [facility] [phone] Microscopic Examination See below: [facility] Comment:Microscopic was btetina cated and was performed. Urine Urine specimen obtained by clean catch procedure / Unknown 10/28/2024 12:44 PM EDT 10/28/2024 us Kelechi Moran MD LAB URINE ORDERABLES Final Result [facility] [address] [place] [address] * PTH, intact (10/28/2024 12:44 PM EDT) [facility] PTH 46 15 - 65 pg/mL [facility] Blood Venous blood / Unknown 10/28/2024 12:44 PM EDT 10/28/2024 Kelechi Moran MD LAB BLOOD ORDERABLES Final Result [facility] [address] [place] [address] * (ABNORMAL) Ferritin (10/28/2024 12:44 PM EDT) Ferritin 230(H) 15 - 150 ng/mL [facility] Blood Venous blood / Unknown 10/28/2024 12:44 PM EDT 10/28/2024 Kelechi Moran MD LAB BLOOD ORDERABLES Final Result Performing Organization Address City/[facility]/ZIP Co de Phone Number [facility] [address] [place] [address] from Last [address] [place] [address] Medicaid [place] Care Teams Guide Changer Relationship Specialty Start Date End Date Janak Greer MD [address] PCP - General 12/18/18
--- OUTSIDE RECORDS SUMMARY | 2024-10-30 12:57 | XMS_ITS | Encounter Summary ---
Author Organization [facility] Address [address] [address] Phone Care Team Providers Care Primary Care Coordinator Name Role Phone Janak Greer MD Primary Care Provider [phone] Encounter Details Date Type Department Care Team (Late Contact Info) Description 02/26/2021 Documentation Only [facility] [address] [place] [address] Kelechi Moran MD [address] [place] [address] [place] [address] Social [...] Visit [facility] [address] [place] [address] Kelehci Moran MD [address] [place] [address] [place] [address] documented as of this encounter Visit Diagnoses Not on filedocumented in this encounter Care Teams Primary Care Coordinator Relationship Specialty Start Date End Date Janak Greer MD [address] PCP - General 12/18/18 documented as of this encounter
--- OUTSIDE RECORDS SUMMARY | 2024-10-30 12:57 | XMS_ITS | Encounter Summary ---
Author Organization [facility] Address [address] [place] [address] Care Team Providers Care Painter Railroad Car Name Role Phone Janak Greer MD Primary Care Provider [phone] Reason for Visit * Reason Comments Med Change Request Encounter Details Date Type Department Care Team ([facility] st Contact Info) Description 10/04/2022 Refill [facility] [address] [address] Leslie Howell PA-C [address] [place] [id number] Visit for wound check Social History Tobacco [...] check documented in this encounter Care Teams Painter Railroad Car Relationship Specialty Start Date End Date Janak Greer MD [address] [place] [address] PCP - General Internal Medicine 08/09/22 documented as of this encounter
== END 2024-10-29 10:32 | disposition home or self-care (01) ==
LOC: HO.HOSX 10:31
PROVIDERS: Visit Provider Orthopaedic Surgery
DX: M25.561 Pain in right knee (principal); Z96.651 Presence of right artificial knee joint
CPT/HCPCS: 73562; 99212

== ENCOUNTER 2024-12-18 12:43 | Outpatient (AMB) | payer MEDICARE, MEDICAID, SELFPAY ==
--- OUTSIDE RECORDS SUMMARY | 2024-07-12 07:23 | XMS_ITS ---
Author Organization [facility] Address [address] [place], [place] [id number] Care Team Providers Care Inseamer Name Role ANUSHA Choi Primary Care Provider JOHANA BOWLING [phone] REASON FOR VISIT endoscopy/Eliquis protocol Encounters Encounter Location Date Provider Diagnosis [address] [address] 07/12/2024 ANUSHA VOGEL PLAN OF TREATMENT Next Appt Details Provider Name:SHAKIRA HEALY TO, 04/21/2025 11:00:00 AM, [address] [place] [address], [phone],
--- OUTSIDE RECORDS SUMMARY | 2024-08-13 03:07 | XMS_ITS ---
Author Organization [facility] Address [address], [place] [id number] Care Team Providers Care Team Leader/Research Psychologist Name Role ANUSHA Choi Primary Care Provider [phone] JOHANA BOWLING [phone] REASON FOR VISIT CM/Admit Encounters Encounter Location Date Provider Diagnosis [address] [id number] 08/13/2024 ANUSHA VOGEL PLAN OF TREATMENT Next Appt Details Provider Name:SHAKIRA MCHUGH, 04/21/2025 11:00:00 AM, [address] [place] [address], [id number],
--- OUTSIDE RECORDS SUMMARY | 2024-08-19 05:06 | XMS_ITS ---
Author Organization [facility] Address [address], [place] [id number] Care Team Providers Care Financial Assistance Advisor Name Role ANUSHA Choi Primary Care Provider JOHANA BOWLING [phone] REASON FOR VISIT CM/Inpt. INES Encounters Encounter Location Date Provider Diagnosis [address] [address] 08/19/2024 ANUSHA VOGEL PLAN OF TREATMENT Next Appt Details Provider Name:SHAKIRA HEALY TO, 04/21/2025 11:00:00 AM, [address] [place], [address],
--- OUTSIDE RECORDS SUMMARY | 2024-09-20 06:17 | XMS_ITS ---
Author Organization [facility] Address [address] [place], [place] [id number] Care Team Providers Care Sergeant Missile Crewman Name Role ANUSHA Choi Primary Care Provider [phone] JOHANA BOWLING [phone] REASON FOR VISIT CM/Update Encounters Encounter Location Date Provider Diagnosis [address] [address] 09/20/2024 ANUSHA VOGEL PLAN OF TREATMENT Next Appt Details Provider Name:SHAKIRA HEALY TO, 04/21/2025 11:00:00 AM, [address] [place], [address],
--- OUTSIDE RECORDS SUMMARY | 2024-10-17 07:40 | XMS_ITS ---
Author Organization [facility] Address [address] [place], [place] [address] Care Team Providers Care Recovery Specialist Name Role ANUSHA Choi Primary Care Provider [phone] JOHANA BOWLING [phone] REASON FOR VISIT cx tomorrow appt Encounters Encounter Location Date Provider Diagnosis [address] [address] 10/17/2024 ANUSHA VOGEL PLAN OF TREATMENT Next Appt Details Provider Name:SHAKIRA HEALY TO, 04/21/2025 11:00:00 AM, [address] [place], [address],
--- OUTSIDE RECORDS SUMMARY | 2024-10-18 06:00 | XMS_ITS ---
Author Organization [facility] Address [address] [place], [place] [id number] Care Team Providers Care Residential Life Director Name Role ANUSHA Choi Primary Care Provider [phone] JOHANA BOWLING [phone] REASON FOR VISIT 28/ 6 months Encounters Encounter Location Date Provider Diagnosis [address] [address] 10/18/2024 ANUSHA VOGEL PLAN OF TREATMENT Next Appt Details Provider Name:SHAKIRA HEALY TO, 04/21/2025 11:00:00 AM, [address] [place] [address], [phone],
--- OUTSIDE RECORDS SUMMARY | 2024-10-29 01:37 | XMS_ITS ---
Author Organization [facility] Address [address] [place], [place] [id number] Care Team Providers Care Bullet Swaging Machine Operator Name Role Phone ANUSHA VOGEL Primary Care Provider [phone] JOHANA BOWLING Unavailable [phone] SHAKIRA JANSEN Unavailable [phone] REASON FOR VISIT New Appointment Request Encounters Encounter Location Date Provider Diagnosis [address] [address] 10/29/2024 SHAKIRA JANSEN PLAN OF TREATMENT Next Appt Details Provider Name:SHAKIRA MCHUGH, 04/21/2025 11:00:00 AM, [address] [place] [address], [phone],
--- OUTSIDE RECORDS SUMMARY | 2024-10-29 03:50 | XMS_ITS ---
Author Organization [facility] Address [address] [place], [place] [id number] Care Team Providers Care Juvenile Correctional Officer Name Role Phone ANUSHA VOGEL Primary Care Provider JOHANA BOWLING Unavailable [phone] SHAKIRA JANSEN Unavailable [phone] REASON FOR VISIT Test results Encounters Encounter Location Date Provider Diagnosis [address] [address] 10/29/2024 SHAKIRA JANSEN PLAN OF TREATMENT Next Appt Details Provider Name:SHAKIRA MCHUGH, 04/21/2025 11:00:00 AM, [address] [place] [address], [phone],
--- OUTSIDE RECORDS SUMMARY | 2024-10-30 03:40 | XMS_ITS ---
Author Organization [facility] Address [address], [place] [id number] Care Team Providers Care Podiatric Technician Name Role Phone ANUSHA VOGEL Primary Care Provider JOHANA BOWLING Unavailable [phone] SHAKIRA JANSEN Unavailable [phone] ALLERGIES Allergen (clinical drug ingredient) Drug/Non Drug Allergy documented on EMR Reaction Allergy Type Onset Date Status Pollen Pollen Unknown Allergy Active REASON FOR VISIT review results MEDICATIONS Medication SIG (Take, Route, Frequency, Duration) Notes Start Date End Date Status Atorvastatin Calcium 80 MG TAKE 1 TABLET BY MOUTH EVERY DAY Active OXcarbazepine 600 MG 1 tablet orally Twi ce a day Active Lexapro 20 MG 1 tablet orally once a day Active buPROPion HCl ER (XL) 150 MG 1 tablet in the morning Orally twice a day Active clonazePAM 1 MG 1 tablet Orally twic e a day with one additional if needed Active Atorvastatin Calcium 80 MG TAKE 1 TABLET BY MOUTH EVERY DAY for 90 Active Albuterol Sulfate HFA 108 (90 Base) MCG/ACT INHALE 2 PUFFS BY MOUTH EVERY 4 HOURS NEEDED Active Eliquis 5 MG TAKE 1 TABLET BY JANETT TH TWICE A DAY Active Eliquis 5 MG TAKE ONE TABLET BY M OUTH TWO TIMES A DAY for 90 Active Omeprazole 20 MG 1 cap(s) orally once a day in the morning Active Linzess 145 MCG 1 capsule at least 3 0 minutes before the first meal of the day on an empty stomach Oral every other day Active Famotidine 40 MG 1 tab(s) Orally Once a day at bedtime Active Restasis 0.05 % 1 drop into affected eye Ophthalmic Twice a day Active Foot Powder - as directed External ly otc Active Levothyroxine Sodium 50 MCG 1 tablet in the morning on an empty stomach orally once a day Active SOCIAL HISTORY Tobacco Use: Social History Observation Description Date Details (start date - stop date) Former Smoker NA - NA Sex Assigned At : Social History Observation Description Sex Assigned At Unknown Smoking Question Answer Notes Are you a: former smoker How long has it been since you last smoked? > 10 years VITAL SIGNS Blood pressure systolic 117 mm Hg 10/31/19 25 Blood pressure diastolic 77 mm Hg 025 Height 64.25 in 10/30/2024 Weight 174.4 lbs 10/30/2024 BMI 29.70 kg/m2 10/30/2024 Encounters Encounter Location Date Provider Diagnosis [facility] [address] [place] [address] 10/30/2024 SHAKIRA PULITO Dyslipidemia E78.5 ; HTN (hypertension), benign I10 ; retirement (current) use of insulin Z79.4 ; Personal history of pulmonary embolism Z86.711 ; Type 2 diabetes mellitus with diabetic chronic kidney disease E11.22 ; Moderate persistent reactive airway disease without complication J45.40 ; Hypothyroidism E03.9 ; Stage 3b chronic kidney disease (CKD) N18.32 ; Gastro-esophageal reflux disease without esophagitis K21.9 ; Constipation by delayed colonic transit K59.01 ; SHAWN (obstructive sleep apnea) G47.33 ; Overactive bladder N32.81 and Bipolar disorder, currently in remission, most recent episode unspecified F31.70 ASSESSMENTS Encounter Date Diagnosis Assessment Notes Treatment Notes Treatment Clinical Notes Section Notes 10/30/2024 Dyslipidemia (ICD-10 - E78.5) ASCVD risk 7.5% but LDL above goal of <70. Patient plans to lose more weight and wants to hold off on medication changes at this time. Follows with Cardiology, Advise regular aerobic exercise, continued weight loss, plant based/low saturated fat diet 10/30/2024 HTN (hypertension), benign (ICD-10 - I10) BP at goal of <130/80 off of medication. Advise regular aerobic exercise, DASH diet, continued weight loss, follow up 6 months 10/30/2024 retirement (current) use of insulin (ICD-10 - Z79.4) 10/30/2024 Personal history of pulmonary embolism (ICD-10 - Z86.711) Anticoagulated with Eliquis. Follows q6 months with Dr. Patterson in past, per patient was told to follow up prn 10/30/2024 Type 2 diabetes mellitus with diabetic chronic kidney disease (ICD-10 - E11.22) Last A1c 5.8% in 09/2024 with Endocrine per patient off of medication. Followed by Endocrine. Congratulated on weight loss. Still using CGM. 10/30/2024 Moderate persistent reactive airway disease without complication (ICD-10 - J45.40) Mild, does not need to use Albuterol inhaler more than 1/week, followed by Dr. Becerra 10/30/2024 Hypothyroidism (ICD-10 - E03.9) Clinically euthyroid 10/30/2024 Stage 3b chronic kidney disease (CKD) (ICD-10 - N18.32) 2/2 [place] use. Stable. Followed by Dr. Moran 10/30/2024 Gastro-esophageal reflux disease without esophagitis (ICD-10 - K21.9) Controlled 10/30/2024 Constipation by delayed colonic transit (ICD-10 - K59.01) Controlled. Followed by GI 10/30/2024 SHAWN (obstructive sleep apnea) (ICD-10 - G47.33) Per patient no longer has sleep apnea since losing weight. No longer snores. 10/30/2024 Overactive bladder (ICD-10 - N32.81) Resolved after weight loss. No longer on medication. Followed by Urology 10/30/2024 Bipolar disorder, currently in remission, most recent episode unspecified (ICD-10 - F31.70) Controlled, sees therapist weekly and med provider every 3 months 10/30/2024 Other I am seeing the patient under the supervision of the co-signing physician. The physician was available for consultation at the time of the office visit. PLAN OF TREATMENT Medication Medication Name Sig Start Date Stop Date Notes Atorvastatin Calcium 80 MG TAKE 1 TABLET BY MOUTH EVERY DAY OXcarbazepine 600 MG 1 tablet orally Twice a day Lexapro 20 MG 1 tablet orally once a day buPROPion HCl ER (XL) 150 MG 1 tablet in the morning Orally twice a day clonazePAM 1 MG 1 tablet Orally twic e a day with one additional if needed Albuterol Sulfate HFA 108 (9 0 Base) MCG/ACT INHALE 2 PUFFS BY MOUTH EVERY 4 HOURS NEEDED Eliquis 5 MG TAKE 1 TABLET BY JANETT TWICE A DAY Omeprazole 20 MG 1 cap(s) orally once a day in the morning Linzess 145 MCG 1 capsule at least 3 0 minutes before the first meal of the day on an empty stomach Oral every other day Famotidine 40 MG 1 tab(s) Orally Once a day at bedtime Restasis 0.05 % 1 drop into affected eye Ophthalmic Twice a day Foot Powder - as directed Externally otc Levothyroxine Sodium 50 MCG 1 tablet in the morning on an empty stomach orally once a day Treatment Notes Assessment Notes Dyslipidemia ASCVD risk 7.5% but LDL above goal of <70. Patient plans to lose more weight and wants to hold off on medication changes at this time. Follows with Cardiology, Advise regular aerobic exercise, continued weight loss, plant based/low saturated fat diet HTN (hypertension), benign BP at goal of <130/80 off of medication. Advise regular aerobic exercise, DASH diet, continued weight loss, follow up 6 months Personal history of pulmonary embolism A nticoagulated with Eliquis. Follows q6 months with Dr. Patterson in past, per patient was told to follow up prn Type 2 diabetes mellitus wit h diabetic chronic kidney disease Last A1c 5.8% in 09/2024 with Endocrine p er patient off of medication. Followed by Endocrine. Congratulated on weight loss. Still using CGM. Moderate persistent reactive airway disease without complication Mild, does not need to use Albuterol inhaler more than 1/week, followed by Dr. Becerra Hypothyroidism Clinically euthyroid Stage 3b chronic kidney disease (CKD) 2/ 2 [place] use. Stable. Followed by Dr. Moran Gastro-esophageal reflux dis ease without esophagitis Controlled Constipation by delayed colonic transit Controlled. Followed by GI SHAWN (obstructive sleep apnea) Per patien t no longer has sleep apnea since losing weight. No longer snores. Overactive bladder Resolved after weigh t loss. No longer on medication. Followed by Urology Bipolar disorder, currently in remission, most recent episode unspecified Controlled, sees therapist weekly and me d provider every 3 months Other I am seeing the holly ent under the supervision of the co-signing physician. The physician was available for consultation at the time of the office visit. Next Appt Details Follow Up: prn or as schedul ed, Reason: Provider Name:SHAKIRA HEALY TO, 04/21/2025 11:00:00 AM, [address] [place], [address], History and Physical Notes * HPI (History of Present Illness) Category Sub-Category Detail Notes Category Not es General 63 yo female pr esents to review recent lab results. She is s/p gastric sleeve in 08/2024, lost 66 pounds since 04/2024, and was able to come off of all antihypertensive and diabetes medications. She feels well with more energy and less joint pain s/p weight loss. Physical Examination Category Sub-Category Detail Notes Section Note s NEUROLOGICAL Gait: normal Mental status: Alert and oriented t o person, place, time Tremor: none Speech normal GENERAL General Appearance: well nourish ed, well developed, pleasant, comfortable, no apparent distress PSYCHOLOGY Grooming: appropriate Eye contact: normal Mood: pleasant Affect appropriate
--- OUTSIDE RECORDS SUMMARY | 2024-11-11 09:51 | XMS_ITS ---
Author Organization [facility] Address [address] [place], [place] [id number] Care Team Providers Care Computer Terminal Operator Name Role ANUSHA Choi Primary Care Provider [phone] JOHANA BOWLING [phone] REASON FOR VISIT CM/Goals Met Encounters Encounter Location Date Provider Diagnosis [address] [address] 11/11/2024 ANUSHA VOGEL PLAN OF TREATMENT Next Appt Details Provider Name:SHAKIRA HEALY TO, 04/21/2025 11:00:00 AM, [address] [place] [address], [phone],
--- NOTE | 2024-12-18 13:07 | MHC.OFFVISWM ---
VS Expanded 12/18/24 13:27 BP 132/61 Blood Pressure Location Rt brachial Blood Pressure Position Sitting Pulse 63 Pulse Source Pulse Oximeter Temp 95.2 F L Temperature Source Temporal Artery Scan Pulse Oximetry 97 Oxygen Delivery Method Room Air Height 5 ft 4 in Weight 165 lb 12.8 oz BMI 28.5 Body Fat % 30.9 Body Fat Mass 51.2 Fat Free Mass 114.6 Visceral Fat Rating 8.0 Body Water % 48.9 Body Water Mass 81.2 Muscle Mass/Score 109.0 Basal Metabolic Rate/Score 1,525 Intake Visit Reasons: OV PO LSG 08/13/24 Allergies No Known Allergies Allergy (Verified 12/18/24 13:23) Medication List - Last Reconciled 12/18/24 by LICO Nye acetaminophen 650 mg (2 x 325 mg) PO Q6H PRN 30 days albuterol sulfate 90 mcg/actuation (Ventolin HFA) 1 inh inhalation Q4H PRN apixaban (Eliquis) 5 mg PO BID Held on 08/13/24. Instructions: until discussed with Dr Palm aripiprazole 5 mg PO DAILY atorvastatin 80 mg PO BEDTIME carvedilol 6.25 mg PO BID Held on 08/14/24. Instructions: Resume on 08/15/24. Check your blood pressure every morning as soon as you wake up and send it to Dr. Palm. Do no take the blood pressure medication if the blood pressure is below 120/70. Wait every day to hear back from Dr. Palm before you take the medication. carvedilol 3.125 mg PO BID Held on 08/14/24. Instructions: Resume on 08/15/24. Check your blood pressure every morning as soon as you wake up and send it to Dr. Palm. Do no take the blood pressure medication if the blood pressure is below 120/70. Wait every day to hear back from Dr. Palm before you take the medication. clonazepam 1 mg PO BID docusate sodium 100 mg PO DAILY PRN escitalopram oxalate 20 mg PO DAILY escitalopram oxalate 5 mg PO DAILY fluticasone propionate 50 mcg/actuation 1 spray intranasal DAILY levothyroxine 50 mcg PO DAILY@0600 oxcarbazepine 600 mg PO BID sucralfate mL PO walker Folding front wheeled walker HPI Comments Details: This a 63 yo female who is s/p LSG without hiatal hernia repair on 08/13/2024. Presents for 4 month post op visit. Weight loss of 7.2lb since last OV 2mo ago, with a BMI of 28.5. Initial weight 237.3 pounds starting the program on 05/27/2024 and operative weight 210.5 pounds. No complaints of nausea, emesis, abdominal pain or reflux. Off PPI and carafate. States that she has been under increased stress lately as she has been having to care for her father and mother. Her father has and her mother has dementia. Taking celebrate mvi Present meal plan includes: celebrate rebuild protein 1 scoops at 8-10 celebrate rebuild 1 scoop at 2-4. celebrate bar at 11-1, 7-9 meal at 5 pm 2 forks protein and 2 forks veg Drinking 40-50 oz of fluids sometimes will miss a protein drink due to stress/busyness Exercise routine includes: stationary bike, 300 calories (100 do 3 x per day) 6 days per week she has tried to start exercising in the AM per Dr Avendano recommendations and did find this worked well She does report some excess skin of abdomen but has not noticed any rashes. [facility] Medical History (Updated 12/18/24 @ 13:56 by LICO Nye) Right knee pain Greater trochanteric bursitis of left hip Extensor carpi ulnaris tendinitis Hyperlipidemia Insomnia Stress incontinence History of venous thromboembolism Anxiety Bipolar 1 disorder Arthritis of right knee Fatty liver Asthma Hypothyroid DVT (deep venous thrombosis) Fibromyalgia HTN (hypertension) Chronic renal insufficiency Type 2 diabetes mellitus Depression Morbid obesity Chronic pulmonary embolism Sleep apnea GERD (gastroesophageal reflux disease) Elevated cholesterol Surgical History S/P laparoscopic sleeve gastrectomy Status post total right knee replacement History of right knee joint replacement History of esophagogastroduodenoscopy (EGD) H/O colonoscopy Hx of inguinal hernia repair Hx of sinus surgery Hx of shoulder surgery Hx of umbilical hernia repair Hx of arthroscopy of right knee History of bladder suspension procedure Hx of tonsillectomy H/O: hysterectomy History of ankle surgery Family History Father Diabetes Heart failure HTN (hypertension) Maternal Aunt Diabetes Paternal Grandmother Diabetes Mother HTN (hypertension) Maternal Grandfather Lung cancer Paternal Grandfather Lung cancer Paternal Aunt Breast cancer Family/Other Prostate CA Paternal Uncle Heart disease Social History Household Members: Family Household Members Other:: takes care of parents Housing: House Are you a primary respiratory care faculty to a significant other at home: No Do you presently have visiting nurse or other home services: No Patient Tobacco Use Status: Former Tobacco user Tobacco use type: Cigarette Years Smoked: 30 Second Hand Smoke Exposure: No Advance Directives Date on File: 11/02/23 service: No Current occupational status: retired Physical Exam Vital Signs: Last Vital Signs Temp 95.2 F L 12/18/24 13:27 Pulse 63 12/18/24 13:27 BP 132/61 12/18/24 13:27 Pulse Ox 97 12/18/24 13:27 Oxygen Delivery Method Room Air 12/18/24 13:27 BMI result Body Mass Index 28.5 Assessment & Plan Assessment & Plan (1) S/P laparoscopic sleeve gastrectomy: Code(s): Z98.84 - Bariatric surgery status Category: Surgical (2) Overweight: Code(s): E66.3 - Overweight Category: Medical Plan Pt to continue same meal plan per Dr Avendano and work on increasing exercise as he suggested. I gave her healthy foods handout for future reference. No reflux off PPI/sucralfate. She will let us know if she experiences further issues with excess skin. RTC in Feb for 6mo visit, and will schedule 9mo visit in May as well.
[2024-12-18 13:27] VITALS: BP 132/61; PULSE 63; TEMP 35.1; O2SAT 97; BMI 28.5
--- OUTSIDE RECORDS SUMMARY | 2024-12-18 15:22 | XMS_ITS | Clinical Summary ---
Author Organization [facility] Address [address] [place] [address] Care Team Providers Care Behavioral Health Worker Name Role Phone Janak Greer MD Primary Care Provider [phone] Allergies No known active allergies Medications Medication [...] 0 05/13/2019 Act kay Continuous Blood Gluc Timber Spotter (FreeStyle Joseph 14 Day [place]) PABLO 0 01/29/2019 Active Continuous Blood Gluc [...] Quadrivalent) 0.5 ML ROSE MARIE Flucelvax Quad [id number] (PF) 60 mcg (15 mcg x 4)/0.5 [...] Take 100 mg by mouth. 0 Act kya traZODone (DESYREL) 50 MG tablet trazodone 50 [...] ambreen lite 0 Active Continuous Blood Gluc Timber Spotter (FreeStyle Joseph 14 Day [place]) PABLO FreeStyle Joseph 14 Day [place] 0 Active Lancets (freestyle) lancets FreeStyle Joseph [...] age to complete this topic Care Teams Behavioral Health Worker Relationship Specialty Start Date End Date Janak Greer MD [address] [place] [address] PCP - General Internal Medicine 12/27/18
--- OUTSIDE RECORDS SUMMARY | 2024-12-18 15:22 | XMS_ITS | Data Portability ---
Author Organization [place] - [facility], Allergy Address [address] [address] Care Team Providers Care Health Care Analyst Name Role Phone LELA ANUSHA Primary Care [...] in 1-2 weeks as scheduled for reevaluation. Not available 08/10/2023 16:45:14 09/28/2023 09/28/2023 Patient [...] 13:06:[address], sinuses, w/o contrast 2023 [facility], [address] [place], [address], 4 14:09:46 Medication Orders doxycyclin e hyclate 100 mg capsule 2023 [facility]/Pharmacy #[id number], [phone] [place], [address], 4 11:38:28 fluticason e propionate 50 mcg/actuat ion nasal spray,susp ension 2023 024 [facility]/Pharmacy #[id number], [phone] [place], [address], 4 12:08:06 Patient TargetsNo targets recorded. Patient Instructions Encounter Date Encounter Id Patient Instructions Last Modified By Organization Details Last Modified Time 07/24/2023 [id number] educational handout [facility] Not available 07/24/2023 12:43:51 Reason for Referral None Reported. Results Created Date Observation Date Name Description Value Unit Range Abnormal Flag Note LastModifiedBy Organization Detail LastModifiedTime 07/24/[address], sinus es, w/o contr ast No observ ation record ed. [facility] [address], [address], 07/24/2023 12:41:01 07/26/19 24 audio gram No observ ation record ed. BAR[facility] Not Available 2023 12:46:02 08/08/19 24 07/24/2023 CT, sinus es, w/o contr ast No observ ation record ed. [facility] [address], [address], 08/08/2023 22:58:50 Result Notes None recorded. Problems Name Problem SNOMED Code Status Onset Date Resolution Date Notes Provider Name and Address Organization Details Recorded Time Benign paroxysma l positiona l vertigo 514347027 Active 2020 Benign paroxysma l vertigo, unspecifi ed ear; Note: Date Diagnosed : 04/14/2020 10:02 AM (H81.10) Not Available [facility] 02:26:19 Sensorine ural hearing loss of bilateral ears 388678434 Active 2020 Sensorine ural hearing loss, bilateral ; Note: Date Diagnosed : 04/14/2020 10:03 AM (H90.3) Not Available [facility] 08/02/202 4 02:26:31 Gastroeso phageal reflux disease without esophagit is 198426037 Active 2021 Gastro-es ophageal reflux disease without esophagit is; Note: Date Diagnosed : 04/15/2021 10:11 AM (K21.9) Not Available [facility] 4 02:26:18 Disturban ce of salivary secretion 23665382 Active 2021 Xerostomi a; Note: Date Diagnosed : 09/30/2021 11:57 AM (K11.7) Not Available [facility] 4 02:26:26 Allergic rhinitis caused by pollen 38536264 Active 2021 Allergic rhinitis due to pollen; Note: Date Diagnosed : 09/30/2021 11:57 AM (J30.1) Not Available [facility] 4 02:26:46 Bilateral temporoma ndibular joint pain 22683758804 105354 Active 2022 Arthralgi a of bilateral temporoma ndibular joint; Note: Date Diagnosed : 05/10/2022 2:35 PM (M26.623) Arthral justin of bilateral temporoma ndibular joint; Note: Date Diagnosed : 04/14/2020 10:02 AM (M26.623) ; Start Date : Not Available [facility] 4 02:26:33 Bleeding from nose 020238336 Active 2022 Epistaxis ; Note: Date Diagnosed : 05/10/2022 2:35 PM (R04.0) Not Available [facility] 4 02:26:44 Otorrhagi a of right ear 24757364110 75027 Active 2022 Otorrhagi a, right ear; Note: Date Diagnosed : 06/14/2022 2:51 PM (H92.21) Not Available [facility] 4 02:26:40 Acute maxillary sinusitis 06286791 Active 2023 Acute maxillary sinusitis , unspecifi ed; Note: Date Diagnosed : 04/25/2023 11:27 AM (J01.00) Not Available [facility] 4 02:26:24 Chronic maxillary sinusitis 66851299 Active 2023 Chronic maxillary sinusitis ; Note: Date Diagnosed : 06/12/2023 11:15 AM (J32.0) Not Available [facility] 4 02:26:21 Chronic sinusitis 80120866 Active 2023 ELENITA KANG MD [address], [place], [address] , [place] - [facility] 4 21:08:07 Deviated nasal septum 507083718 Active 2023 ELENITA KANG MD [address] [facility], [place], [address] , [place] [facility] [place] 4 21:08:13 Abnormal auditory perceptio n 93910992 Active 2023 ELENITA KANG MD [address] [facility], [place], [address] , [place] [facility] 4 12:02:38 Chronic left maxillary sinusitis 56549849261 779384 Active 2023 ELENITA KANG MD [address] [facility] [address], [place], [address] , [place] [facility] [place] 4 14:04:57 Obstructi ve sleep apnea syndrome 89819664 Active 2023 ELENITA KANG MD 100 [facility] [address], [place], [address] , [facility] - [facility] 4 14:22:09 Problem Notes None recorded. Procedures Surgical History Date Name Laterality Status Provider Name and Address Organization Details Recorded Time 01/08/20 24 NasalEndoscopy_DP completed MARVIN CHEUNG PA-C [address] [facility] [address], [place], [address], [facility] 01/08/2024 12:45:15 09/28/19 24 JMSNasal/Sinus Endoscopy-PRIOR surgical cavities completed ELENITA MONTANO MD 100 [facility] [address], [place], [address], [facility] - [facility] [place] 09/28/2023 12:07:20 08/25/19 24 JMSNasal/Sinus Endoscopy-DEBRIDE MENT completed ELENITA MONTANO MD 100 [facility],[address], [address], [facility] - [facility] [place] 08/25/2023 14:20:40 08/10/19 24 JMSNasal/Sinus Endoscopy-DEBRIDE MENT completed RAMYA BHATTI PA-C 100 [facility],[place] [address], [place], [address], [facility] - [facility] [place] 08/10/2023 16:43:40 08/08/19 24 ENDOSCOPY, NASAL/SINUS W/ PARTIAL ETHMOIDECTOMY (SURG) completed Nacho Aldana [place] - [facility] 08/11/2023 13:52:45 07/24/19 24 JMSNasal/Sinus Endoscopy completed ELENITA MONTANO MD 100 [facility],[address], [address], [facility] - [facility] 07/24/2023 12:01:33 07/24/19 24 SRT & Tymps - 03625 & 40463 completed Leah Donaldson [facility] 07/24/2023 12:28:03 Imaging Results None recorded. [...] mg tablet 09/30 completed Medicati on ID: [id number] B rand Name: furosemi de Send Method: E-Prescr ibed Sub s Allowed: subs OK Medic ationGen ericName : furosemi de Not Available Not Available Not Available Miralax 17 gram/dose oral powder 09/30 completed Medicati on ID: [id number] B rand Name: Miralax Send Method: E-Prescr [...] pack Take 06/11 completed Medicati on ID: [id number] P rescribe d By Name: Joleen Cruz MD Brand Name: Medrol (Jeff) Se nd Method: E-Prescr ibed Sub s Allowed: subs OK Speci al Instruct ion: take as instruct ed Medic ationGen ericName : Medrol (Jeff) Not Available Not Available Not Available prednison e 20 mg tablet by mouth 2023 active Medicati on ID: [id number] B rand Name: predniso ne Send Method: [...] tended release 09/30 completed Medicati on ID: [id number] B rand Name: Tylenol Arthriti s Pain [...] mg tablet 09/30 completed Medicati on ID: [id number] B rand Name: oxcarbaz epine Se nd Method: E-Prescr ibed Sub s Allowed: subs OK Medic ationGen ericName : oxcarbaz epine Not Available Not Available Not Available acetamino phen 300 mg-codein e 30 mg tablet active Medicati on ID: [id number] B rand Name: acetamin ophen-co deine Se [...] mcg tablet 09/30 completed Medicati on ID: [id number] B rand Name: levothyr oxine Se nd Method: E-Prescr ibed Sub s Allowed: subs OK Medic ationGen ericName : levothyr oxine Not Available Not Available Not Available hydrocort isone 2.5 % topical cream with perineal applicato r 06/11 completed Medicati on ID: 375971 B rand Name: hydrocor tisone S end [...] 100 mg tablet active Medicati on ID: [id number] B rand Name: trazodon e Send Method: E-Prescr ibed Sub s Allowed: subs OK Medic ationGen ericName : trazodon e Medica tion ID: [id number] B rand Name: trazodon e Send Method: E-Prescr ibed Sub s Allowed: subs OK Medic ationGen ericName : trazodon e Not Available Not Available Not Available benzonata te 100 mg capsule TAKE 1 CAPSULE BY MOUTH THREE TIMES A DAY FOR 3 DAYS active Not Available Not Available No t Available levothyro xine 50 mcg tablet active Medicati on ID: [id number] B rand Name: levothyr oxine Se nd Method: E-Prescr ibed Sub s Allowed: subs OK Medic ationGen ericName : levothyr oxine Not Available Not Available Not Available cephalexi n 500 mg capsule TAKE 1 CAPSULE BY MOUTH FOUR TIMES A DAY active Not Available Not Available No t Available tacrolimu s 0.1 % topical ointment 06/11 completed Medicati on ID: [id number] B rand Name: tacrolim us Send Method: [...] mg tablet 06/11 completed Medicati on ID: 732896 B rand Name: hydroxyz ine HCl Send [...] nasal spray 09/30 completed Medicati on ID: [id number] B rand Name: azelasti ne Send Method: [...] unit) tablet 09/30 completed Medicati on ID: 448377 B rand Name: Vitamin D3 Send Method: [...] as directed 2022 active Medicati on ID: [id number] D uration Value: 14 Brand Name: Ciprodex [...] mg capsule 09/30 completed Medicati on ID: [id number] B rand Name: Cinnamon Send Method: E-Prescr ibed Sub s Allowed: subs OK Medic [facility] ericName : Cinnamon Not Available Not Available [...] mcg tablet 09/30 completed Medicati on ID: 854640 B rand Name: Centrum Silver Women Se [...] ous pen injector active Medicati on ID: 579939 B rand Name: Mounjaro Send Method: E-Prescr [...] Updated DateTime 07/24/2023 162.56 cm 43.9 kg/m2 567889.65 g Jacob Bishop [place] - [facility] 07/24/2023 11:37:39 Date Recorded Body height Body mass index (BMI) Body weight Provider Name and Address Organization Details Last Updated DateTime 08/10/2023 162.56 cm 43.9 kg/m2 354876.65 g Deborah Saldivaros [place] - [facility] 08/10/2023 15:56:40 Date Recorded Body height Provider Name an d Address Organization Details Last Updated DateTime 08/25/2023 162.56 cm Jacob Bishop [place] - [facility] [place] 08/25/2023 14:03:50 Date Recorded Body height Body mass index (BMI) Body weight Provider Name and Address Organization Details Last Updated DateTime 09/28/2023 162.56 cm 43.4 kg/m2 798483.87 g Jacob Bishop [place] - [facility] 09/28/2023 11:59:23 Social History None recorded. [...] Diagnosis SNOMED-CT Code Diagnosis ICD10 Code Diagnosis IMO Codes Diagnosis Note [id number] ELENITA KANG MD [facility] [address] [address] 07/24/2023 10:58:36 07/24/2023 13:19:59 Chronic sinusitis 59951399 J32.9 J32.8 Because of increased symptoms on [...] handout was given Deviated nasal septum 12 4117811 J34.2 Abnormal a uditory perception 61137210 H93.293 Tymp and SRT reviewedA speech awareness threshold test, tympanomet ry, and distortion product otoacousti c emission test were performed. Results are as follows: Speech Awareness/ Car Parker Test: Right Ear:10 dB(HL) Left Ear:10 dB(HL) Tympanomet ry: Right Ear:Type Ad Left Ear:Type A 5776 RAMYA BHATTI PA-C [facility] [place] [address] [place] [address] 08/10/2023 15:42:46 08/10/2023 16:16:37 Chronic sinusitis 19286577 J32.8 Postoperative visit 1836 97054 Z48.89 7238 ELENITA KANG MD [facility] [address] [place] [address] 08/25/2023 13:59:35 08/25/2023 14:34:07 Chronic left maxillary sinusitis 6967341885 4398158 J32.0 No residual infection. Debridemen t performed. Suggest gentle irrigation to avoid ear symptoms. Burning mouth has improved. She can take some probiotics . Follow-up 4 weeks. Abnormal a uditory perception 50042381 H93.293 No fluid Obstructiv e sleep apnea syndrome 05197948 G47.33 Resume CPAP [id number] ELENITA KANG MD [facility] [address] [address] 09/28/2023 11:30:17 09/28/2023 12:14:30 Chronic left maxillary sinusitis 3904530590 6239112 J32.0 No residual infection. Debridemen t performed. Suggest gentle irrigation to avoid ear symptoms. Burning mouth has improved. She can take some probiotics . Follow-up 4 weeks. Deviated nasal septum 12 5989903 J34.2 [id number] MARVIN CHEUNG PA-C [facility] 100 [place] [address] 01/08/2024 10:59:57 01/08/2024 11:42:28 Deviated nasal septum 417647509 J34.2 right Chronic le ft maxillary sinusitis 3118538248 1837904 J32.0 Health Concerns Section Related Observation LastModified by Organization Detai ls LastModified Time None Recorded Concern Status LastModified by Organization Details LastModified Time None Recorded Advance Directives Directive None Recorded Payers Insurance Date Sequence Insurance Name Policy Number Policy Azul Covered Member ID Azul Member ID Guarantor Name 05/07/2024 2 [place] [facility] Esperanza Dean [id number] Esperanza Dean 04/16/[address] [facility] [id number] Esperanza Dean [id number] Esperanza Dean Notes Date Note Type Note Provider Name and Address Organization Details Recorded Time 07/24/2023 text/html No change with prednisone or abx. Still has facial pressure and ear fullness L > R prior [id number] with chronic left maxillary sinusitis. Symptoms started [...] left sigifredo bullosa and right deviated septum. I n light of these findings and still no purulent drainage from the nose, recommend higher dose of steroids. Course of prednisone prescribed today. Also recommend daily nasal saline irrigation's. Marcos med bottle was provided today and we reviewed instructions on use . Katherine pearl should follow-up with one of my colleagues in six weeks. If still no improvement at that point would likely benefit from limited endoscopic sinus surgery. ELENITA MONTANO MD 100 [facility],[place] [address], [place], [address], [place] - [facility] 07/24/2023 12:45:01 08/10/2023 text/html ROS as noted in the HPI 62-year-old female presents status post left maxillary antrostomy with sigifredo bullosa resection on 08/08/[address] Montano. She is doing well postoperatively. Currently on amoxicillin. MIKE MONTOYA MD 100 [facility] [place],[address], [address], [facility] 08/10/2023 17:13:02 08/25/2023 text/html ROS as noted in the [facility] Patient seen following endoscopic surgery she is August 07. She still has some left facial pressure, ear fullness and nasal discharge. No HL. Smell and taste ok. Been irrigating twice daily and using saline solution 3-4 times per day. Finished abx but got burning. No thrush. Holding CPAP ELENITA MONTANO MD 100 [facility],[address], [address], [facility] 08/25/2023 14:22:37 09/28/2023 text/html Patient with chronic sinusitis status post left-sided surgery. She has a known rightward septal deviation and had mild sinus thickening on that side. We elected to proceed with left-sided surgery only. She notes significant improvement and just a little bit of congestion in the morning. ELENITA MONTANO MD 100 [facility],[address], [address], [facility] 09/28/2023 12:08:38 01/08/2024 text/html ROS as noted in the HPI 63 year old female presents following left [...] some relief. GARRY LINK MD 100 [facility] [place],[address], [address], [facility] 01/08/2024 21:13:08 OBGyn Episode No OBEpisode recorded.
--- OUTSIDE RECORDS SUMMARY | 2024-12-18 15:22 | XMS_ITS | Clinical Summary ---
Author Organization [facility] Address [address] [address] Phone Care Team Providers Care Section Gang Name Role Phone Janak Greer MD Primary Care Provider [phone] Kelechi Moran MD Unavailable [phone] Allergies No known active allergies Medications atorvastatin [...] Active ferrous sulfate 325 mg (65 mg [place] iron) tablet Take 325 mg by mouth [...] 05/23/2022 Hyperlipidemia 05/23/2022 Gastroesophageal reflux disease 05/23/2022 senior living current use of insulin 05/23/[address] 05/23/2022 Assessment & Plan (05/23/2022 1:14 PM EDT): Tandem pump/Dexcom G6, supplies from [facility]. Type 2 diabetes with nephropathy 05/23/2022 Assessment [...] reservoir. Could also check w/ pump company and/campus recruiting coordinator/CDE for additional suggestions. She is also interested [...] FOBT 2006 SIGMOIDOSCOPY 2006 VIRTUAL COLONOSCOPY 2006 RSV VACCINE (1 - Risk 50-74 years 1-dose series) 11/16/2011 ZOSTER VACCINES (1 of 2) 11/16/2011 DIABETIC EYE EXAM 05/23/2022 BLOOD PRESSURE 11/22/2022 05/23/2022 HEMOGLOBIN A1C 11/22/2022 05/23/2022 TSH LEVEL 05/24/2023 05/23/2022 INFLUENZA VACCINE (#1) 2024 0, 10/17/2018 COVID-19 VACCINE (1 - 2024-2 6 season) 2024 HEPATITIS A VACCINES Aged Out [...] EDT) TSH 1.37 0.27 - 4.20 uIU/mL [facility] Blood 05/23/2022 12:4 9 PM EDT 05/23/2022 12:50 PM EDT us Sheryl Still MD LAB BLOOD BKR ORDERABL ES Final Result [address] [address] * (ABNORMAL) Hemoglobin A1c (05/23/2022 12:49 PM EDT) HEMOGLOBIN A1C 5.9(H) 4.3 - 5.8 % [facility] Blood 05/23/2022 12:4 9 PM EDT 05/23/2022 12:50 PM EDT us Sheryl Still MD LAB BLOOD BKR ORDERABL ES Final Result [address] [address] from Last 3 Months or Most Recently Relevant to Health Maintenance Insurance [employer] HMO REPLACEMENT MEDICARE PART A & B MEDICARE HMO REPLACEMENT MEDICARE PART A & B MEDICARE HMO REPLACEMENT MEDICARE PART A & B MEDICARE HMO REPLACEMENT MEDICARE PART A & B MEDICARE HMO REPLACEMENT MEDICARE PART A & [place] [address] [place] [address] MEDICARE HMO REPLACEMENT MEDICARE PART A & B MEDICARE PART A & B MEDICARE HMO REPLACEMENT MEDICARE PART A & B [employer] MEDIC[employer] HMO REPLACEMENT MEDICARE PART A & B Care Teams Section Gang Relationship Specialty Start Date End Date Janak Greer MD [address] [address] [email or web address] PCP - General Internal Medicine 03/12/21 Kelechi Moran MD [address] [place] [address] [email or web address] Nephrology 05/23/22 Additional Source Comments The information contained in this document represents components of the legal health record. It is not the complete legal health record.[facility]
--- OUTSIDE RECORDS SUMMARY | 2024-12-18 15:22 | XMS_ITS | Patient Health Record ---
Author Organization [facility] Address [address], [place] [id number] Care Team Providers Care Biosecurity Officer Name Role Phone ANUSHA VOGEL Primary Care Provider JOHANA BOWLING Unavailable [phone] SHAKIRA JANSEN Unavailable [phone] ALLERGIES Allergen (clinical drug ingredient) Drug/Non Drug Allergy documented on EMR Reaction Allergy Type Onset Date Status Pollen Pollen Unknown Allergy Active REASON FOR REFERRAL No Information MEDICATIONS Medication SIG (Take, Route, Frequency, Duration) Notes Start Date End Date Status Eliquis 5 MG TAKE 1 TABLET BY JANETT TWICE A DAY Active Albuterol Sulfate HFA 108 (90 Base) MCG/ACT INHALE 2 PUFFS BY MOUTH EVERY 4 HOURS NEEDED Active Omeprazole 20 MG 1 cap(s) orally [...] affected eye Ophthalmic Twice a day Active Eliquis 5 MG TAKE ONE TABLET BY M OUTH TWO TIMES A DAY for 90 Active Foot Powder - as directed External ly otc Active Atorvastatin Calcium 80 MG TAKE 1 TABLET BY MOUTH EVERY DAY Active Atorvastatin Calcium 80 MG TAKE 1 TABLET BY MOUTH EVERY DAY for 90 Active OXcarbazepine 600 MG 1 tablet orally Twi ce a day Active Lexapro 20 MG 1 tablet orally once a day Active buPROPion HCl ER (XL) 150 MG 1 tablet in the morning Orally twice a day Active Levothyroxine Sodium 50 MCG 1 tablet in the morning on an empty stomach orally once a day for 90 days Active clonazePAM 1 MG 1 tablet Orally twic e a day with one additional if needed Active IMMUNIZATIONS Vaccine Route Administration Date Status Comme nts Zoster recombinant IM Intramuscular 11/17/2021 Administere d Zoster recombinant IM Intramuscular 12/28/2021 Administere d Tdap (Adacel)11-64,State Supplied IM Intramuscular 04/16/2009 Administered Tdap (Adacel) IM Intramuscular 11/20/2020 Administered [id number] Unknown 09/30/2023 Administered Pneumococcal, PPV 23 IM Intramuscular 06/23/2014 Administered Pfizer COVID-19,mRNA, LNP-S, PF, 30mcg/0.3mL dose Unknown 05/06/2020 Administered Pfizer COVID-19,mRNA, LNP-S, PF, 30mcg/0.3mL dose Unknown 05/28/2020 Administered Pfizer COVID-19,mRNA, LNP-S, PF, 30mcg/0.3mL dose IM Intramuscular 10/27/2021 Administered Moderna COVID-19 mRNA LNP-S PF IM Intramuscular 2022 Administered Influenza, Trivalent IM Intramuscular 09/30/2023 Administered Influenza, MDCK , Trivalent, PF Influenza, Fluzone QUAD, 3+ yrs, Unknown 10/19/2016 Administered Influenza, Fluzone Quad IM Intramuscular 11/12/2020 Administered Influenza, Fluzone Quad IM Intramuscular 2022 Administered Influenza, Flucelvax Unknown 10/17/2018 Administered Influenza, Flublok IM Intramuscular 10/27/2021 Administere d Influenza Unknown 11/25/2009 Administered H1N1 inactivated injectable IM Intramuscular 04/16/2009 Administered FLU- FLUVIRIN, PRE-FILLED SYRINGE 0.5 ml IM Intramuscular 11/11/2013 Administered Afluria Quad IM Intramuscular 10/01/2019 Administered info above entered from [facility] immun consent sheet provided to office by patient. SM SOCIAL HISTORY Tobacco Use: Social History Observation Description Date Details (start date - stop date) Former Smoker NA - NA Sex Assigned At : Social History Observation Description Sex Assigned At Unknown Smoking Question Answer Notes Are you a: former smoker How long has it been since you last smoked? > 10 years Section Notes: 5/d now; h/o 1/2 ppd x 18 ye ars 5/d now; h/o 1/2 ppd x 30 ye ars 5/d now; h/o 1/2 ppd x 30 ye ars former smoker quit 5 years a go 06/2018 quit smoking; h/o 1/2 ppd x 30 years pt former smoker 06/2018 1/2 ppd x 30 years 06/2018 quit smoking; h/o 1/2 ppd x 30 years 06/2018 quit smoking; h/o 1/2 ppd x 30 years former smoker quit 5 years a go former smoker quit 5 years a go 5/d now; h/o 1/2 ppd x 17 ye ars 06/2018 quit smoking; h/o 1/2 ppd x 30 years 5/d now; h/o 1/2 ppd x 17 ye ars 5/d now; h/o 1/2 ppd x 18 ye ars 5/d now; h/o 1/2 ppd x 18 ye ars 5/d now; h/o 1/2 ppd x 30 ye ars 5/d now; h/o 1/2 ppd x 30 ye ars 5/d now; h/o 1/2 ppd x 30 ye ars 5/d now; h/o 1/2 ppd x 30 ye ars 5/d now; h/o 1/2 ppd x 30 ye ars 5/d now; h/o 1/2 ppd x 30 ye ars 5/d now; h/o 1/2 ppd x 30 ye ars 5/d now; h/o 1/2 ppd x 30 ye ars 5/d now; h/o 1/2 ppd x 30 ye ars 5/d now; h/o 1/2 ppd x 30 ye ars 5/d now; h/o 1/2 ppd x 30 ye ars 5/d now; h/o 1/2 ppd x 30 ye ars 5/d now; h/o 1/2 ppd x 30 ye ars 06/2018 quit smoking; h/o 1/2 ppd x 30 years 06/2018 quit smoking; h/o 1/2 ppd x 30 years 06/2018 quit smoking; h/o 1/2 ppd x 30 years 06/2018 quit smoking; h/o 1/2 ppd x 30 years 06/2018 quit smoking; h/o 1/2 ppd x 30 years 06/2018 quit smoking; h/o 1/2 ppd x 30 years 06/2018 quit smoking; h/o 1/2 ppd x 30 years 06/2018 quit smoking; h/o 1/2 ppd x 30 years 06/2018 quit smoking; h/o 1/2 ppd x 30 years 5/d now; h/o 1/2 ppd x 17 ye ars 5/d now; h/o 1/2 ppd x 17 ye ars 5/d now; h/o 1/2 ppd x 18 ye ars 5/d now; h/o 1/2 ppd x 30 ye ars 5/d now; h/o 1/2 ppd x 30 ye ars 5/d now; h/o 1/2 ppd x 30 ye ars 5/d now; h/o 1/2 ppd x 30 ye ars 06/2018 quit smoking; h/o 1/2 ppd x 30 years 06/2018 quit smoking; h/o 1/2 ppd x 30 years former smoker quit 5 years a go 5/d now; h/o 1/2 ppd x 30 ye ars 06/2018 quit smoking; h/o 1/2 ppd x 30 years former smoker quit 5 years a go 06/2018 quit smoking; h/o 1/2 ppd x 30 years 06/2018 quit smoking; h/o 1/2 ppd x 30 years 5/d now; h/o 1/2 ppd x 18 ye ars 06/2018 quit smoking; h/o 1/2 ppd x 30 years 06/2018 quit smoking; h/o 1/2 ppd x 30 years former smoker quit 5 years a go 5/d now; h/o 1/2 ppd x 17 ye ars 5/d now; h/o 1/2 ppd x 18 ye ars 06/2018 quit smoking; h/o 1/2 ppd x 30 years 06/2018 quit smoking; h/o 1/2 ppd x 30 years 5/d now; h/o 1/2 ppd x 30 ye ars 5/d now; h/o 1/2 ppd x 30 ye ars; quit 05/01 quit smoking; h/o 1/2 ppd x 30 years 06/2018 quit smoking; h/o 1/2 ppd x 30 years 06/2018 quit smoking; h/o 1/2 ppd x 30 years 5/d now; h/o 1/2 ppd x 30 ye ars 06/2018 quit smoking; h/o 1/2 ppd x 30 years 06/2018 quit smoking; h/o 1/2 ppd x 30 years 06/2018 quit smoking; h/o 1/2 ppd x 30 years former smoker quit 5 years a go 5/d now; h/o 1/2 ppd x 30 ye ars 5/d now; h/o 1/2 ppd x 18 ye ars former smoker quit 5 years a go former smoker quit 5 years a go former smoker quit 5 years a go former smoker quit 5 years a go 5/d now; h/o 1/2 ppd x 18 ye ars 06/2018 quit smoking; h/o 1/2 ppd x 30 years 06/2018 quit smoking; h/o 1/2 ppd x 30 years 06/2018 quit smoking; h/o 1/2 ppd x 30 years 06/2018 quit smoking; h/o 1/2 ppd x 30 years former smoker quit 5 years a go former smoker quit 5 years a go 06/2018 quit smoking; h/o 1/2 ppd x 30 years former smoker quit 5 years a go 5/d now; h/o 1/2 ppd x 30 ye ars 06/2018 quit smoking; h/o 1/2 ppd x 30 years 06/2018 quit smoking; h/o 1/2 ppd x 30 years 06/2018 quit smoking; h/o 1/2 ppd x 30 years 06/2018 quit smoking; h/o 1/2 ppd x 30 years 06/2018 quit smoking; h/o 1/2 ppd x 30 years 06/2018 quit smoking; h/o 1/2 ppd x 30 years former smoker quit 5 years a go 06/2018 quit smoking; h/o 1/2 ppd x 30 years former smoker quit 5 years a go PROBLEMS Problem Type ICD Code Onset Dates Problem Status W/U Status Risk SNOMED Code Notes Problem Hypothyroidism (acquired) (244.9) Active confirmed Hypothyro idism (68933558) Problem Diabetes mellitus type II (250.00) Active confirmed Diabetes me llitus type II (08824899) Problem Bipolar disorder NOS (296.7) Active confirmed Bipolar disorde r (15228166) Problem Shaking palsy (332.0) Active confirmed Shaking palsy (68139863) Problem Aphasia (438.11) Active confirmed Aphas ia (64452185) Problem Polyarthralgia (719.49) Active confirmed Polyarthralgia (50152669) Problem Bursitis of hip (726.5) Active confirmed Bursitis of hip (34433976) Problem Tremor (781.0) Active confirmed Tremor (41401879) Problem Rash (782.1) Active confirmed Rash (271 668339) Problem Abnormal kidney function study (794.4) Active confirmed Renal function tests abnormal (780163422) Problem Other and unspecified nonspecific immunological findings (795.79) Active confirmed Disorder o f immune function (744783441) Problem Sprain of neck NOS (847.0) Active confirmed Neck sprain (821303325) Problem Strain of back NOS (847.9) Active confirmed Strain of back muscle (721564153) Problem Vitamin D deficiency NOS (268.9) Active confirmed Vitamin D defic iency (67339181) Problem Hypercholesterolemi a (272.0) Active confirmed Hypercholestero lemia (65258337) Problem Hyperlipidemia (272.4) Active confirmed Hyperlipidemia (36813078) Problem Otitis media NOS (382.9) Active confirmed Otitis media (62359825) Problem Vertigo (438.85) Active confirmed Verti go (228613764) Problem Hemorrhoids NOS (455.6) Active confirmed Hemorrhoids (76159934) Problem Fibromyalgia (729.1) Active confirmed Fibromyalgia (398325007) Problem Headache (784.0) Active confirmed Heada denny (62860197) Problem OBESITY NOS (278.00) Active confirmed Obesity (726271199) Problem NECK DISORDER/SYMPT NOS (723.9) Active confirmed Musculoskeletal disorder of the neck (739369100) Problem SHOULDER REGION DIS NEC (726.2) Active confirmed Disorder of bobby ulder region (812616716) Problem CRAMP IN LIMB (729.82) Active confirmed Cramp in limb (113585728) Problem SKIN ANOMALY NEC (757.39) Active confirmed Disorder of ski n (89560303) Problem ABDMNAL PAIN GENERALIZED (789.07) Active confirmed Generalized abdominal pain (194458311) Problem HIP & THIGH INJURY NOS (959.6) Active confirmed Injury of hip a nd thigh (758675495) Problem osteoarthritis (715.90) Active confirmed Osteoarthritis (775035680) Problem Bipolar affective disorder, depressed (296.50) Active confirmed Depressed bipol ar I disorder (92000043) Problem ASTHMA NOS (493.90) Active confirmed As thma (713567637) Problem Fatigue (780.79) Active confirmed Fatig ue (25350144) Problem FAMILY HX-GI MALIGNANCY (V16.0) Active confirmed Family hi story of malignant neoplasm of gastrointestinal tract (946836242) Mother had positive genetic markers. Problem WOUND DISRUPTION NOS (998.30) Active confirmed Traumatic wound dehiscence (487685885) Problem Essential hypertension (I10) Active confirmed 38925479 Problem Colon adenoma (D12.6) Active confirmed 891908165 h/o colon adenoma Problem Family history of colon cancer (Z80.0) Active confirmed 317868686 Problem Gastro-esophageal reflux disease without esophagitis (K21.9) Active confirmed Gastro-esophage al reflux disease without esophagitis (780816045) Problem Anxiety associated with Depression (F41.8) Active confirmed 649908574 Problem Fibromyalgia (M79.7) Active confirmed 506757380 Problem HTN (hypertension), benign (I10) Active confirmed Essential hypertension (33759024) Problem Essential (primary) hypertension (I10) Active confirmed Essential hypertension (89882751) Problem Pure hypercholesterolemi a (E78.0) Active confirmed 817660344 Problem Myalgia (M79.1) Active confirmed 996950 01 Problem Tobacco abuse (Z72.0) Active confirmed 257290676 Problem Paresthesia (R20.2) Active confirmed 91 803077 Problem Hypothyroidism (acquired) (E03.9) Active confirmed Hypothyro idism (10766901) Problem SHAWN (obstructive sleep apnea) (G47.33) Active confirmed 98618643 Problem Chronic kidney disease, unspecified (N18.9) Active confirmed 405366042 Problem Greater trochanteric bursitis of left hip (M70.62) Active confirmed Enthesopathy of hip region (54765978) Problem Weight gain (R63.5) Active confirmed We ight gain (852161305) Problem Anticoagulant long-term use (Z79.01) Active confirmed 367949734 Problem LVH (left ventricular hypertrophy) (I51.7) Active confirmed 63173921 Problem Trochanteric bursitis, right hip (M70.61) Active confirmed Trochanteric bursitis of right hip (316131710507236) Problem Hair loss (L65.9) Active confirmed 9560 80028 Problem Overactive bladder (N32.81) Active confirmed 934501182 Problem Abnormal CT of the abdomen (R93.5) Active confirmed 75512491428457788 Problem Type 2 diabetes mellitus with diabetic chronic kidney disease (E11.22) Active confirmed 282592741 Problem Bipolar disorder, currently in remission, most recent episode unspecified (F31.70) Active confirmed Bipolar I disor yecenia, most recent episode mixed, in remission (09024429) Problem Other chronic pain (G89.29) Active confirmed 37330507 Problem First degree hemorrhoids (K64.0) Active confirmed 66504008 Problem Unsteadiness on feet (R26.81) Active confirmed Abnormal gait (40470167) Problem Aftercare following joint replacement surgery (Z47.1) Active confirmed History of musculoskeletal operation (043078862) Problem cut in worker (current) use of anticoagulants (Z79.01) Active confirmed Long-term curre nt use of anticoagulant (292870504) Problem longterm (current) use of insulin (Z79.4) Active confirmed Long-term curre nt use of insulin (509193496) Problem Personal history of pulmonary embolism (Z86.711) Active confirmed 299622721 Problem Presence of right artificial knee joint (Z96.651) Active confirmed Artificial k nee joint present (293343651408) Problem Hypothyroidism (E03.9) Active confirmed Hypothyroidism (34564027) Problem Twitching (R25.3) Active confirmed 2499 28115 Problem Primary osteoarthritis of both knees (M17.0) Active confirmed 426261410 Problem Type 2 diabetes mellitus with peripheral neuropathy (E11.40) Active confirmed Diabetic peripheral neuropathy associated with type 2 diabetes mellitus (9548086188477) Problem Chronic fatigue (R53.82) Active confirmed 45483597 Problem Primary osteoarthritis of right knee (M17.11) Active confirmed 140641266334406 Problem Subacute maxillary sinusitis (J01.00) Active confirmed 91277954 Problem Constipation by delayed colonic transit (K59.01) Active confirmed 91081163 Problem Trochanteric bursitis of left hip (M70.62) Active confirmed 701431253856655 Problem BMI 40.0-44.9, adult (Z68.41) Active confirmed Body mass ind ex 40+ - morbidly obese (962310737) Problem Anxiety state (F41.1) Active confirmed 222582255 Problem Fatigue, unspecified type (R53.83) Active confirmed 68727574 Problem Type 2 diabetes mellitus (E11.9) Active confirmed Type 2 diab etes mellitus (45339678) Problem Sedimentation rate elevation (R70.0) Active confirmed 954936819 Problem Anemia, unspecified type (D64.9) Active confirmed 337923428 Problem Lesion of left [place] kidney (N28.9) Active confirmed 14145749 Problem Recurrent major depressive disorder, in full remission (F33.42) Active confirmed 31852135 Problem Bilateral tinnitus (H93.13) Active confirmed 6977260790074 Problem Dry eyes (H04.123) Active confirmed 162 349129 Problem Trochanteric bursitis, unspecified laterality (M70.60) Active confirmed 76902837 Problem Abnormal blood creatinine level (R79.9) Active confirmed 499159056 Problem 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) Active confirmed Diabetic renal disease (044724718) Problem Type 2 diabetes mellitus without complication, without long-term current use of insulin (E11.9) Active confirmed Type II diab etes mellitus without complication (887033758) Problem Elevated cholesterol (E78.00) Active confirmed Pure hypercholesterolemia (770777400) Problem Dyslipidemia (E78.5) Active confirmed 690668121 Problem Hypertension, unspecified type (I10) Active confirmed 54158007 Problem Umbilical abnormality (Q89.9) Active confirmed 908957938 Problem Other hyperlipidemia (E78.49) Active confirmed Hyperlipidemia (86283221) Problem Moderate persistent reactive airway disease without complication (J45.40) Active confirmed 683374596920 Problem Abnormal CT scan, chest (R93.89) Active confirmed 38341726836731522 Problem Steatorrhea (K90.9) Active confirmed 66 971202 Problem Gammopathy (D47.2) Active confirmed 111 111099 Problem Primary osteoarthritis involving multiple joints (M15.9) Active confirmed 355478665 Problem Stage 3b chronic kidney disease (CKD) (N18.32) Active confirmed 263257628 VITAL SIGNS Blood pressure diastolic 77 mm Hg 10/30/2024 Height 64.25 in 10/30/2024 Blood pressure systolic 117 mm Hg 10/30/2024 Weight 174.4 lbs 10/30/2024 BMI 29.70 kg/m2 10/30/2024 Encounters Encounter Location Date Provider Diagnosis [facility] [address] [place] [phone] 01/16/2024 ANUSHA VOGEL [facility] [address] [place] [phone] 02/16/2024 ANUSHA VOGEL [address] [phone] 03/12/2024 ANUSHA VOEGL [facility] [address] [place] [phone] 03/19/2024 ANUSHA VOGEL [address] [address] 03/21/2024 ANUSHA VOGEL [address] [address] 04/17/2024 SHAKIRA PULITO cut in worker (current) use of insulin Z79.4 ; Personal history of pulmonary embolism Z86.711 ; Moderate persistent reactive airway disease without complication J45.40 ; Stage 3b chronic kidney disease (CKD) N18.32 ; Dyslipidemia E78.5 ; Gastro-esophageal reflux disease without esophagitis K21.9 ; HTN (hypertension), benign I10 ; Constipation by delayed colonic transit K59.01 ; Family history of colon cancer Z80.0 ; SHAWN (obstructive sleep apnea) G47.33 ; Overactive bladder N32.81 ; Medicare annual wellness visit, subsequent Z00.00 ; Type 2 diabetes mellitus with diabetic chronic kidney disease E11.22 ; Hypothyroidism E03.9 and Bipolar disorder, currently in remission, most recent episode unspecified F31.[address] [address] 04/17/2024 SHAKIRA PULITO Hypothyroidism E03.9 and Moderate persistent reactive airway disease without complication J45.[address] [address] 04/19/2024 SHAKIRA PULITO Anemia, unspecified type D64.9 and Dyslipidemia E78.[address] [address] 04/23/2024 SHAKIRA PULITO [address] [address] 05/03/2024 ANUSHA VOGEL [address] [address] 06/11/2024 SHAKIRA PULITO Other hyperlipidemia E78.49 [facility] [address] [place] [address] 06/13/2024 SHAKIRA PULITO Anemia, unspecified type D64.9 ; Type 2 diabetes mellitus without complication, without long-term current use of insulin E11.9 and Other hyperlipidemia E78.49 [facility] [address] [place] [address] 06/17/2024 [facility] [address] [place] [address] 06/18/2024 SHAKIRA PULITO Anemia, unspecified type D64.9 [facility] [address] [place] [phone] 06/18/2024 [facility] [address] [place] [phone] 07/03/2024 [facility] [address] [place] [phone] 07/12/2024 [facility] [address] [place] [phone] 08/13/2024 [facility] [address] [place] [phone] 08/19/2024 [facility] [address] [place] [phone] 09/20/2024 [facility] [address] [place] [phone] 10/17/2024 [facility] [address] [place] [phone] 10/18/2024 [facility] [address] [place] [phone] 10/29/2024 [facility] [address] [place] [phone] 10/29/2024 [facility] [address] [place] [phone] 10/30/2024 SHAKIRA PULITO Dyslipidemia E78.5 ; HTN (hypertension), benign I10 ; longterm (current) use of insulin Z79.4 ; Personal [...] in remission, most recent episode unspecified F31.70 [facility] [address] [place] [address] 11/11/2024 ANUSHA VOGEL ASSESSMENTS Encounter Date Diagnosis Assessment Notes Treatment Notes Treatment Clinical Notes Section Notes 04/17/2024 longterm (current) use of insulin (ICD-10 - Z79.4) 04/17/2024 Personal history of pulmonary embolism (ICD-10 - Z86.711) Anticoagulated with Eliquis. Follows q6 months with Dr. Patterson 04/17/2024 Hypothyroidism (ICD-10 - E03.9) 04/19/2024 Anemia, unspecified type (ICD-10 - D64.9) 06/11/2024 Other hyperlipidemia (ICD-10 - E78.49) 06/13/2024 Anemia, unspecified type (ICD-10 - D64.9) 06/18/2024 Anemia, unspecified type (ICD-10 - D64.9) 10/30/2024 HTN (hypertension), benign (ICD-10 - I10) BP at goal of <130/80 off of medication. Advise regular aerobic exercise, DASH diet, continued weight loss, follow up 6 months 10/30/2024 Dyslipidemia (ICD-10 - E78.5) ASCVD risk 7.5% but LDL above goal of <70. Patient plans to lose more weight and wants to hold off on medication changes at this time. Follows with Cardiology, Advise regular aerobic exercise, continued weight loss, plant based/low saturated fat diet 04/17/2024 Moderate persistent reactive airway disease without complication (ICD-10 - J45.40) Mild, does not need to use Albuterol inhaler more than 1/week, followed by Dr. Becerra 04/17/2024 Moderate persistent reactive airway disease without complication (ICD-10 - J45.40) 04/19/2024 Dyslipidemia (ICD-10 - E78.5) 06/13/2024 Type 2 diabetes mellitus without complication, without long-term current use of insulin (ICD-10 - E11.9) 10/30/2024 longterm (current) use of insulin (ICD-10 - Z79.4) 10/30/2024 Personal history of pulmonary embolism (ICD-10 - Z86.711) Anticoagulated with Eliquis. Follows q6 months with Dr. Patterson in past, per patient was told to follow up prn 06/13/2024 Other hyperlipidemia (ICD-10 - E78.49) 04/17/2024 Stage 3b chronic kidney disease (CKD) (ICD-10 - N18.32) 2/2 [place] use. Stable. Followed by Dr. Moran 10/30/2024 Type 2 diabetes mellitus with diabetic chronic kidney disease (ICD-10 - E11.22) Last A1c 5.8% in 09/2024 with Endocrine per patient off of medication. Followed by Endocrine. Congratulated on weight loss. Still using CGM. 04/17/2024 Dyslipidemia (ICD-10 - E78.5) Follows with Cardiology, Advise regular aerobic exercise, weight loss, plant based/low saturated fat diet 04/17/2024 Gastro-esophageal reflux disease without esophagitis (ICD-10 - K21.9) Controlled, reveiwed risks and benefits of PPI vs H2 ankush 10/30/2024 Moderate persistent reactive airway disease without complication (ICD-10 - J45.40) Mild, does not need to use Albuterol inhaler more than 1/week, followed by Dr. Becerra 04/17/2024 HTN (hypertension), benign (ICD-10 - I10) BP at goal of <130/80, continue current med, Advise regular aerobic exercise, DASH diet, weight loss, follow up 6 months 10/30/2024 Hypothyroidism (ICD-10 - E03.9) Clinically euthyroid 10/30/2024 Stage 3b chronic kidney disease (CKD) (ICD-10 - N18.32) 2/2 [place] use. Stable. Followed by Dr. Moran 04/17/2024 Constipation by delayed colonic transit (ICD-10 - K59.01) Followed by GI 10/30/2024 Gastro-esophageal reflux disease without esophagitis (ICD-10 - K21.9) Controlled 04/17/2024 Family history of colon cancer (ICD-10 - Z80.0) Colonscopy UTD 04/17/2024 SHAWN (obstructive sleep apnea) (ICD-10 - G47.33) Compliant with CPAP 10/30/2024 Constipation by delayed colonic transit (ICD-10 - K59.01) Controlled. Followed by GI 04/17/2024 Overactive bladder (ICD-10 - N32.81) Followed by Urology 10/30/2024 SHAWN (obstructive sleep apnea) (ICD-10 - G47.33) Per patient no longer has sleep apnea since losing weight. No longer snores. 10/30/2024 Overactive bladder (ICD-10 - N32.81) Resolved after weight loss. No longer on medication. Followed by Urology 04/17/2024 Medicare annual wellness visit, subsequent (ICD-10 - Z00.00) UTD with dentist, Ophthalmology, and Derm. BP controlled, BMI elevated. Check labs today. See Preventive Health section. AWV 1 year 04/17/2024 Type 2 diabetes mellitus with diabetic chronic kidney disease (ICD-10 - E11.22) Followed by Endocrine, patient reports good control on current regimen and is losing weight 10/30/2024 Bipolar disorder, currently in remission, most recent episode unspecified (ICD-10 - F31.70) Controlled, sees therapist weekly and med provider every 3 months 04/17/2024 Hypothyroidism (ICD-10 - E03.9) Clinically euthyroid 04/17/2024 Bipolar disorder, currently in remission, most recent episode unspecified (ICD-10 - F31.70) Controlled, sees therapist weekly and med provider every 3 months 10/30/2024 Other I am seeing the patient under the supervision of the co-signing physician. The physician was available for consultation at the time of the office visit. 04/17/2024 Other I am seeing the patient under the supervision of the co-signing physician. The physician was available for consultation at the time of the office visit. PLAN OF TREATMENT Pending Test Test Name Order Date MRI Kidneys without contrast 03/09/2022 Sleep study for CPAP titration CT Abd and Pelvis w/ IV and Oral Contras t 04/27/2020 BREE both lower extremities with and with out exercise 07/01/2021 CT scan left ankle 06/11/2020 Future Test Test Name Order Date Stress Echocardiogram 03/08/2016 Exercise Stress Test 04/19/2018 US : LIVER 07/05/2019 US Lower Extremity Veins Duplex Left US Lower Extremity Veins Duplex Right EMG Lower Extremity Right 08/21/2019 CT ABDOMEN with IV & ORAL Contrast 02/16 CT abdomen and pelvis with contrast 02/13 MRI Abdomen with contrast 02/28/2020 MRI Abdomen without contrast 08/17/2020 GLYCOHEMOGLOBIN (HBA1C) 10/07/2021 AST ( SGOT) 10/07/2021 ALT(DO NOT USE) 10/07/2021 BASIC METABOLIC PANEL 10/07/2021 AMYLASE 03/03/2022 CBC W/ AUTOMATED DIFF 03/03/2022 LIPASE 03/03/2022 COMP. METABOLIC 03/03/2022 AMYLASE 03/08/2022 CBC W/ AUTOMATED DIFF 03/08/2022 LIPASE 03/08/2022 COMP. METABOLIC 03/08/2022 Urinalysis w/ Reflex Microscopics 2022 PROTIME PROFILE 04/08/2022 ColoFIT,Occult Blood,Fecal,[id number] 07/2024 Next Appt Details Provider Name:SHAKIRA Avila MONET TO, 04/21/2025 11:00:00 AM, [address] [place], [address], Insurance Providers Payer Name Payer Address Payer Phone Subscriber Number Group Number Insured Name Patient Relationship to Insured Coverage Start Date Coverage End Date [employer] MEDICARE ADVANTAGE [address] [place] [address] [id number] CHEVY WOLF Self - patient is the insured 3 [facility] [employer] [employer] [address] [place] [address] [phone] [id number] CHEVY WOLF Self - patient is the insured [address] [facility] [employer] [address] [facility] [place] [address] [id number] LUIS WOLFNDY Self - patient is the insured MEDICATIONS ADMINISTERED Medication Instructions Date of Administration Dosage Notes Triamcinolone Acetonide, mul ti-dose vial, 03/14/2022 60 mg MEDICAL (GENERAL) HISTORY Medical History History ICD Code Type 2 diabetes - diagnosed 1997 hyperlipidemia - hx. of severe hypertrig lyceridemia Hypertension bipolar disorder - CURATOR OF EDUCATION Deep Depression PCOS with hirsutism obesity sleep apnea Chronic diarrhea. Colonoscopy (16) 5 Colon adenoma removed. No colitis. Colon Polyps hypothyroidism, negative TPO 2009 fibromyalgia Colonoscopy 09/27/2010 - Sm int hem Upper GI w/air routine 06/10 - Gastroesophageal reflux to the level of the aortic arch. Intermittent breakup of the primary stripping wave in the midesophagus CT of abd & pelv 11/24/2005 - Fatty liver. Stable nonspecific sm exophytic lesion from the upper pole L kidney. Mild diverticulosis CT of abd & pelv 09/15/2004 - Hysterecto my. Minimal diverticulosis Colonoscoy 11/22/2013 - Sig tics. HCP: Magali Gray (daughter) Colonoscopy 04/24/2017 - Div erticulosis in the sig colon & in the L colon. Path: tubular adenoma CKD 3 DVT right leg pulmonary embolism Surgical History Surgery Date(Month/Year) weigh loss surgery 08/13/2024 Right Knee Replacement 10/2023 sinus surgery 07/2023 left ankle surgery 09/27/22 Left ankle surgery 10/14/20 cyst removed from jaw 07/15/20 carpal tunnel right 01/06/20 carpal tunnel left 12/18/19 Polypectomy 09/2010 cardiac catheterization 05/28/08 BTL bilateral shoulder- removal bone spurs/c alcific tendinitis total hysterectomy 2002 bladder suspension, unspecified 10/1989 Hospitalization History Reason Date(Month/Year) Adhikari: breathing issues 07/26/2022 Above [facility] weight loss surgery 08/13/2024 [facility] Right Knee Replacemen t 10/30/2023 [facility]: SOB 04/2022 [facility] cough 03/31/23
--- OUTSIDE RECORDS SUMMARY | 2024-12-18 15:23 | XMS_ITS | Data Portability ---
Author Organization [place] [facility] Franca Grullon [place] Address [address] [place] [address] Care Team Providers Care Director Of Rooms Name Role Phone ANUSHA VOGEL Primary Care Provider [phone] ANUSHA VOGEL Primary Care Provider Assessment Encounter [...] In the meantime she will continue with hmkv-hzv-dygzqtk pain medication. We will set up the [...] findings at length with the patient today. We discussed the nature and etiology of this problem along with current treatment options. We discussed the expected course and outcomes and what to expect. We also discussed risks and benefits. All of their questions were answered today, and there was exhibited understanding and comprehension of all that was discussed. Time Spent: 10 minutes were spent reviewing previous imaging and charting. 10 minutes were spent obtaining patient history. 5 minutes were spent on physical exam. 5minutes were spent explaining diagnosis and assessment. Today's [...] the wrist that needs to be addressed. [email or web address] Not available 03/22/2023 11:43:58 03/24/2023 03/24/2023 HPI : T nilesh you for the pleasure of requesting a [...] degrees. The knee is stable within that gqnhg-ve-ezmbup to AP and ML stress. The alignment [...] is intact. MRI: Left wrist performed at [facility] April 05, 2023 reveals equivocal subluxation [...] reevaluation and to proceed with additional treatment. [email or web address] Not available 04/19/2023 12:23:26 05/26/2023 05/26/2023 HPI : patient comes in for follow-up for her [...] degrees. The knee is stable within that djvot-dc-jmukfp to AP and ML stress. The alignment [...] with right total knee arthroplasty using the [place] total knee replacement system. However, it is [...] patient is a good candidate for surgical reconstruction. We did discuss that we want her to lose some additional weight prior to surgery. Once she has lost some additional weight she will call us for scheduling. Plan for right total knee replacement, robotic assisted, Plan for right total knee replacement, robotic assisted, [place] joint replacement Hooper. Not available 05/26/2023 10:08:43 Plan of Treatment Reminders Order Date Submit Date Provider Last Modified By Organization Details Last Modified Time Details Appointments None recorded. Lab None recorded. Referral None recorded. Procedures None recorded. Surgeries total knee arthroplast y (SURG) 2023 024 0 Not available 4 10:19:12 Imaging XR, knee, 4 or more view 2023 024 [email or web address] [facility], [address], [address], [place], [address], 11:11:12 MRI, wrist, w/o contrast - Evaluate ECU/sixth extensor compartment for tenosynovit is.Please call patient to schedule and hand carry CD 2023 024 [email or web address] [facility], [address] [place], [address], 09:42:37 Medication Orders None recorded. Patient TargetsNo targets recorded. Patient Instructions Encounter Date Encounter Id Patient Instructions Last Modified By Organization Details Last Modified Time 03/24/2023 [id number] AP, lateral, Melchor, and patellar view radiographs of the right knee taken today demonstrate right knee degenerative joint disease with joint space narrowing, osteophyte formation, and subchondral sclerosis. there is lxmu-gj-eqjs articulation in the medial compartment. Not available 03/24/2023 11:00:11 Reason for Referral None Reported. Results Created Date Observation Date Name Description Value Unit Range Abnormal Flag Note LastModifiedBy Organization Detail LastModifiedTime 04/18/19 24 04/05/2023 MRI, wrist , w/o contr ast No observ ation record ed. [email or web address] [facility] [address] [place], [address], 04/18/2023 15:46:48 04/27/19 24 MRI, wrist , w/o contr ast No observ ation record ed. [email or web address] [facility] [address] [place], [address], 04/27/2023 08:42:31 Result Notes None recorded. Problems Name Problem SNOMED Code Status Onset Date Resolution Date Notes Provider Name and Address Organization Details Recorded Time Problem 58649653 Active No known active problems Not Available [facility] 5 23:59:49 Osteoarth ritis of right knee joint 44378692430 9100 Active 2022 TERESA SHINE PA-C [address] [facility],[address], [place], [address] , [place] [facility], [facility] 3 12:46:54 Extensor tenosynov itis of wrist 368234391 Active 2022 Dallin [place] MD [address], [place], [address] , [place] [facility], [facility] 3 17:40:16 Arthritis of first carpometa carpal joint of left hand 96085261022 Active 2022 Dallin [place] MD [address], [place], [address] , [place] [facility], [facility] 3 17:40:30 Instabili ty of joint of right knee 84384391772 55964 Active 2022 TERESA SHINE PA-C [address], [place], [address] , [place] [facility], [facility] 3 09:18:55 Effusion of joint of right knee 34249020852 9104 Active 2022 TERESA SHINE PA-C [address], [place], [address] , [place] [facility], [facility] 3 10:05:35 Problem Notes None recorded. Procedures Surgical History Date Name Laterality Status Provider Name and Address Organization Details Recorded Time 02/22/19 24 AONE tendon sheath cortisone injection completed Dallin L[place] MD [address], [place], [address], [place] [facility] 02/22/2023 10:43:39 12/30/19 23 Knee Joint/Bursa Asp & Inj completed TERESA SHINE PA-C [address], [place], [address], [place] [facility] 12/29/2022 10:03:04 12/21/19 23 Knee Joint/Bursa Asp & Inj completed TERESA SHINE PA-C [address], [place], [address], [place] [facility] 12/20/2022 13:29:41 09/16/19 23 Knee Joint/Bursa Asp & Inj completed TERESA SHINE PA-C [address] [facility] [address], [place], [address], [place] [facility] 09/15/2022 07:52:52 08/25/19 23 AONE tendon sheath cortisone injection completed Dallin [place] MD [address], [place], [address], [place] [facility] 08/24/2022 12:40:55 06/21/19 23 Knee Joint/Bursa Asp & Inj completed TERESA SHINE PA-C [address] [facility] [address], [place], [address], [place] [facility] 06/19/2022 23:48:21 hysterectomy completed [facility] [place] 12/29/2022 08:44:02 procedure on urinary bladder completed [facility] [place] 12/29/2022 08:44:53 procedure on shoulder completed [facility] [place] 12/29/2022 08:45:08 hernia repair completed [facility] 12/29/2022 08:45:14 Imaging Results None recorded. Procedure Notes None [...] completed Not Available Not Available Not Available insulin glargine (U-100) 100 unit/mL subcutaneou s solution Lantus U-100 Insulin 100 unit/mL subcutane ous solution 2019 active Not Available Not Available Not Avai lable trazodone 50 mg tablet trazodone 50 mg tablet 2020 active Not Available Not Available Not Avai lable cetirizine 10 mg tablet Take 1 tablet by mouth. active Not Available Not Available No t Available warfarin 10 mg tablet See Instructi ons, please take 15 mg and 20mg on alternate days, 0 Refills, Maintomy ce, 10/06/19 12:06:00 EDT, Tablet 2019 active Not Available Not Available Not Avai lable famotidine 40 mg tablet Take 1 tablet [...] active Not Available Not Available Not Available oxcarbazepi ne 300 mg tablet oxcarbaze pine 300 mg tablet 2019 active Not Available Not Available Not Avai lable acetaminoph en 300 mg-codeine 30 mg tablet 12/29 completed Not Available Not Available Not Available sulfamethox azole 800 mg-trimetho prim 160 mg tablet TAKE 1 TABLET BY MOUTH TWICE A DAY FOR 5 DAYS 09/15 completed Not Available Not Available Not Available aspirin 81 mg tablet,july yed release Take 1 tablet by mouth. active Not Available Not Available No t Available carvedilol 3.125 mg tablet TAKE 1 TABLET BY MOUTH 2 TIMES A DAY WITH 6.25 MG DOSE active Not Available Not Available No t Available levothyroxi ne 25 mcg tablet levothyro xine 25 mcg tablet 2019 active Not Available Not Available Not Avai lable Kenalog 40 mg/mL suspension for injection Take [...] completed Not Available Not Available Not Available dicyclomine 20 mg tablet 2020 active Not Available Not Available Not Avai lable Kenalog 10 mg/mL suspension for injection Take [...] Not Available Not Available No t Available warfarin 5 mg tablet warfarin 5 mg tablet active Not Available Not Available No t Available gabapentin 300 mg capsule 2021 active Not Available Not Available Not Avai lable omeprazole 20 mg capsule,del ayed release TAKE [...] Available Not Available No t Available enoxaparin 150 mg/mL subcutaneou s syringe INJECT 129MG SUBCUTANE OUSLY EVERY 12 HOURS FOR 10 DAYS 2021 active Not Available Not Available Not Avai lable hydroxyzine HCl 25 mg tablet TAKE 1 TABLET BY MOUTH TWICE A DAY NEEDED FOR ANXIETY 12/20 completed Not Available Not Available Not Available codeine 10 mg-guaifene sin 100 mg/5 mL oral liquid TAKE 10 ML BY MOUTH EVERY 4 HOURS FOR 5 DAYS NEEDED active Not Available Not Available No t Available lisinopril 5 mg tablet lisinopri l 5 mg tablet active Not Available Not Available No t Available mupirocin 2 % topical ointment APPLY TOPICALLY TO THE AFFECTED AREA ON THE LEFT LOWER LEG TWICE A DAY UNTIL HEALED 2021 active Not Available Not Available Not Avai lable azelastine 137 mcg (0.1 %) nasal spray [...] Not Available Not Available No t Available glipizide 5 mg tablet Take 5 mg by mouth daily. active Not Available Not Available No t [...] Not Available Not Available No t Available cyclosporin e 0.05 % eye drops in a dropperette active Not Available Not Available Not Available lidocaine (PF) 10 mg/mL (1 %) injection solution Take 10 mL by injection route. 02/22 completed Not Available Not Available Not Available lidocaine (PF) 20 mg/mL (2 %) injection solution 08/18 completed Not Available Not Available Not Available BD Ultra-Fine Short Pen Needle 31 gauge x 06/28 active Not Available Not Available Not Available hylan g-f 20 48 mg/6 mL intra-artic ular syringe 06/25 completed Not Available Not Available Not Available GaviLyte-G 236 gram-22.74 gram-6.74 gram-5.86 gram oral solution TAKE 4000 ML DIRECTED 02/22 completed Not Available Not Available Not Available triamcinolo ne acetonide 0.1 %-emollient comb.no.45 topical cream PLEASE SEE ATTACHED FOR DETAILED DIRECTION S 2021 active Not Available Not Available Not Avai lable lidocaine (PF) 100 mg/5 mL (2 %) [...] Not Available Not Available No t Available cariprazine 1.5 mg capsule Take 1.5 mg by mouth. active Not Available Not Available No t [...] completed Not Available Not Available Not Available sitagliptin 100 mg tablet Take 100 mg by mouth. active Not Available Not Available No t Available Vitals Date Recorded Body height Body mass index (BMI) Body weight Provider Name and Address Organization Details Last Updated DateTime 03/24/2023 162.56 cm 45.3 kg/m2 895849.39 g Beatriz Aruna [place] [facility] 03/24/2023 10:44:14 Date Recorded Body height Body mass index (BMI) Body weight Provider Name and Address Organization Details Last Updated DateTime 05/26/2023 162.56 cm 44.3 kg/m2 181854.83 g Chari Shellie [facility] 05/26/2023 09:56:04 Social History Question Answer Notes LastModified by Organizat ion Details LastModified Time Tobacco Smoking Status Former Smoker Beatriz Valdovinos chery, [place] [facility] 12/29/2022 08:46:38 When Did You Quit [...] Anemia N Brain Injury N Heart Attack (AR) N Osteopenia N Diabetes Y Bleeding Disorder [...] ICD10 Code Diagnosis IMO Codes Diagnosis Note [id number] MD BRANDEN Curran [address] [address] 06/08/2022 11:44:59 06/08/2022 12:08:20 Extensor tenosynovitis of wrist 455193074 M65.839 [id number] ELVIE GUTIERREZ [facility] [address] [facility] [address] [place] [address] 06/20/2022 11:03:15 06/20/2022 11:48:20 Pain of right knee joint 0803011706 59016 M25.561 Osteoarthr itis of right knee joint 4567678337 30194 M17.11 [id number] MD BRANDEN Curran [address] [address] 06/29/2022 10:05:38 06/29/2022 11:00:28 Pain of left wrist 3969089051 52731 M25.532 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 0199473616 68707 G56.02 [id number] MD BRANDEN Curran [address] [address] 08/03/2022 10:36:47 08/03/2022 11:31:14 Extensor tenosynovitis of wrist 227893648 M65.839 Arthritis of first carpometacarpal joint of left hand 8176647945 184559 M13.842 [id number] MD BRANDEN Curran [address] [address] 08/24/2022 11:23:15 08/24/2022 11:57:21 Extensor tenosynovitis of wrist 292273838 M65[place] [id number] ELVIE GUTIERREZsingh [address] [facility] [address] [facility] [place] [address] 09/15/2022 10:34:27 09/15/2022 11:35:33 Osteoarthritis of right knee joint 4557330691 45145 M17.11 [id number] ELVIE GUTIERREZsingh [address] [facility] [address] [place] [address] 12/20/2022 09:13:41 12/20/2022 10:01:14 Osteoarthritis of right knee joint 1576197821 51667 M17.11 [id number] ELVIE GUTIERREZ [place] [address] [facility] [address] [place] [address] 12/29/2022 08:17:47 12/29/2022 09:01:45 Osteoarthritis of right knee joint 4408828530 18312 M17.11 Instabilit y of joint of right knee 3097958975 579298 M25.361 Effusion o f joint of right knee 3265304049 20240 M25.461 Right knee joint effusion [id number] ELVIE GUTIERREZsingh [address] [place] [address] 01/03/2023 14:25:07 01/03/2023 15:04:47 Instability of joint of right knee 3353086891 359510 M25.361 Nonbillabl e visit [id number] ELVIE GUTIERREZ [facility] [address] [address] 01/11/2023 10:36:20 01/11/2023 11:21:09 Instability of joint of right knee 5260117267 387681 M25.361 Osteoarthr itis of right knee joint 3737879560 69611 M17.11 [id number] MD BRANDEN Curran [address] [address] 02/22/2023 09:50:34 02/22/2023 10:26:40 Extensor tenosynovitis of wrist 962328754 M65.839 Left ECU [id number] ELVIE GUTIERREZ [facility] [address] [address] 03/16/2023 10:50:05 03/16/2023 11:32:54 Osteoarthritis of right knee joint 0656432879 M17.11 [id number] MD ANNALISA Curran[address] [address] 03/22/2023 11:22:58 03/22/2023 11:37:45 Synovitis and tenosynovitis of joint of wrist 8184728301 M67.834 Left ECU [id number] MD BRANDEN Santiago [facility] [address] [facility] [address] [place] [address] 03/24/2023 10:25:15 03/24/2023 10:59:45 Pain of right knee joint 6520143623 83552 M25.561 Osteoarthr itis of right knee joint 1223155856 07487 M17.11 [id number] MD BRANDEN Curran [place] [address] [facility] [address] [place] [address] 04/19/2023 11:05:25 04/19/2023 11:34:04 Extensor tenosynovitis of wrist 014490684 M65.839 Left ECU [id number] MD BRANDEN Santiago [facility] [address] [facility] [address] [place] [address] 05/26/2023 09:16:00 05/26/2023 10:12:04 Osteoarthritis of right knee joint 8751568345 47701 M17.11 Arthritis of knee 140185 002 M13.869 Health Concerns Section Related Observation LastModified by Organization Detai ls LastModified Time None Recorded Concern Status LastModified by Organization Details LastModified Time None Recorded Advance Directives Directive None Recorded Payers Insurance Date Sequence Insurance Name Policy Number Policy Azul Covered Member ID Azul Member ID Guarantor Name 08/01/2023 1 [facility] MEDICARE ADVANTAGE PLAN (MEDICARE REPLACEMENT HMO) [id number] Esperanza Dean [id number] Esperanza Dean 02/09/2024 2 [place] [facility] Esperanza Dean [id number] Esperanza Dean Notes Date Note Type Note Provider Name and Address Organization Details Recorded Time 03/16/2023 text/html This is a pleasant 62-year-old female who had a cortisone injection [...] she is on Eliquis. TERESA SHINE PA-C [address] [place] [address],[facility] [address], [place], [address], [place] [facility] 03/16/2023 12:32:58 OBGyn Episode No OBEpisode recorded.
--- OUTSIDE RECORDS SUMMARY | 2024-12-18 15:23 | XMS_ITS | Patient Health Record ---
Author Organization [facility] Address [address] [address] Care Team Providers Care Rapier Insertion Loom Fixer Name Role Phone Caprice Staples Unavailable [phone] Reason For Referral No Information Medications Medication SIG (Take, Route, Frequency, Duration) Notes Start Date End Date Status Topiramate 50MG 1 ORAL twice daily; Duration: - [facility] 04/11/2013 Active metFORMIN HCl 500MG 1 ORAL four times da negro; Duration: [facility] 04/11/2013 Active Luz 0.05MG 1 patch to skin Transdermal TWICE WEEKLY [facility] 04/04/2013 Active Vitamin D3 5,000 IU 1 ORAL daily; Durati on: [facility] 04/11/2013 Active PriLOSEC OTC 20 MG 1 tablet Orally Once a day Active Atorvastatin Calcium 80 MG 1 tablet Oral ly Once a day Active Aspirin EC 81MG 1 ORAL daily; Durati on: - [facility] 04/11/2013 Active Abilify 2MG 1 ORAL daily; Durati on: [facility] 04/11/2013 Active Restasis 0.05 % 1 into affected eye Ophthalmic Twice a day Active Luz 0.05 MG/24HR 1 patch to skin Transdermal TWICE WEEKLY; Duration: 90 days 07/22/2014 Active LORazepam 1MG 1 ORAL three times d aily; Duration: [facility] 04/11/2013 Active glipiZIDE 5MG ORAL three times greg ly; Duration: [facility] 04/11/2013 Active Cymbalta 60MG 1 ORAL daily; Durati on: [facility] 04/11/2013 Active Problems Problem Type SNOMED Code ICD Code Onset Dates Problem Status W/U Status Risk Notes Problem Type II diabetes mellitus uncontrolled (283682120) Diabetes mellitus without mention of complication, type II or unspecified type, uncontrolled (250.02) Active confirmed Diag Problem Hyperlipidemia (50890486) Other and unspecified hyperlipidemia (272.4) Active confirmed Major Problem Menopausal symptom (38970054) Symptomatic menopausal or female climacteric states (627.2) Active confirmed Diag Problem Muscle pain (81334529) Unspecified myalgia and myositis (729.1) Active confirmed Major Problem Gynecological examination normal (204470295785025) Routine gynecological examination (V72.31) Active confirmed Major Plan Of Treatment Pending Test Test Name Order Date MAMMOGRAM, SCREENING 07/22/2014 Insurance Providers Payer Name Payer Address Payer Phone Subscriber Number Group Number Insured Name Patient Relationship to Insured Coverage Start Date Coverage End Date [employer] MEDICARE ADVANTAGE [facility] [address] [place] [address] [id number] CHEVY WOLF Self - patient is the [...]
== END 2024-12-18 14:04 | disposition home or self-care (01) ==
LOC: HO.HBS 12:44
PROVIDERS: Visit Provider Physician Assistant Surgical
DX: E66.3 Overweight (principal); Z68.28 Body mass index [BMI] 28.0-28.9, adult; Z90.3 Acquired absence of stomach [part of]; Z98.84 Bariatric surgery status
CPT/HCPCS: 99213; G2211

== ENCOUNTER → 2024-12-18 12:43 | Outpatient (BNVA) | payer MEDICARE, MEDICAID, SELFPAY | PROVIDERS: Visit Provider Physician Assistant Surgical | DX: Z98.84 Bariatric surgery status (principal); E66.3 Overweight; L98.7 Excessive and redundant skin and subcutaneous tissue | CPT/HCPCS: 99212 ==